=== PATIENT | female | born 1945 | race Caucasian/White ===

== ENCOUNTER 2021-10-07 11:52 | Emergency (ER) | payer MEDICARE, MEDICAID, SELFPAY ==
--- NOTE | ~2021-10-07 | XR_ITS ---
EXAMINATION: XR KNEE, RIGHT CLINICAL INFORMATION: Fall, pain COMPARISON: None TECHNIQUE: AP and lateral views of the right knee. FINDINGS: Comminuted, minimally displaced fracture of the patella with at least 2 fracture lines in the transverse plane with overlying soft tissue swelling. Small joint effusion. Lateral joint space narrowing. XR/XR knee RT 2V IMPRESSION: Transverse fractures of the patella with minimal displacement.
[2021-10-07 12:03] VITALS: BP 117/66; PULSE 61; RESP 18; O2SAT 96; BMI 18.8
--- NOTE | 2021-10-07 13:20 | ED_ITS ---
HPI - Fall General Chief Complaint: Fall Stated Complaint: Fall T-1 R knee pain Time Seen by Provider: 10/07/21 13:20 Source: patient and other Mode of arrival: ambulatory Limitations: no limitations History of Present Illness HPI Narrative: 76-year-old female presents to the ER for evaluation of right knee pain after she fell last night. She states she was ambulating around her house without her walker when she tripped on a step and fell onto her right knee. She reports she cannot get up. She was on the floor for 20 minutes and managed to crawl to her bedroom. Nursing staff came to her house last night around 04:00 o'clock to give her her evening meds and dinner and was able to help her up. She adamantly refused transfer to the hospital at that time. She woke up this morning with ongoing right knee pain and swelling. She had significant limited range of motion with ability to only partially bear weight. She lives home independently with nursing staff intermittently through [facility] and service net. complaint: fall Onset (ago): day(s) (1) Fall from: standing Fall witnessed: no Place fall occurred: home Loss of consciousness: none Prolonged down time: minute(s) (20) Symptoms prior to fall: none Context: tripped/slipped Location of injury - extremities: right: knee Severity: moderate Severity scale (1-10): 7 Quality: aching Associated symptoms (after fall): denies Related Data Previous Rx's Medication Instructions Recorded ibuprofen 600 mg tablet 600 mg PO Q8H PRN pain #14 tabs 10/07/21 oxycodone 5 mg tablet 2.5 mg PO BID PRN severe pain 10/07/21 (scale score 7-10) #6 tabs Allergies Allergy/AdvReac Type Severity Reaction Status Date / Time propoxyphene [From Darvon] Allergy Mild UNKNOWN Unverified 10/31/19 14:49 metformin [Metformin] AdvReac Mild DIARRHEA, Unverified 10/31/19 14:49 RASH Review of Systems Review of Systems: Constitutional: No Fever, No Chills ENT/Mouth: No sore throat, No Rhinorrhea Cardiovascular: No Chest Pain, No SOB, No Orthopnea, No Edema Respiratory: No Cough, No Sputum, No Wheezing, No dyspnea Gastrointestinal: No Nausea, No Vomiting, No Diarrhea, No abdominal Pain Genitourinary: No Dysuria, No Urinary Frequency, No Hematuria Musculoskeletal: + joint pain, No Myalgias Skin: +Skin Lesions, No rash Neuro: No Weakness, No Numbness, No Dizziness, No Headache Psych: No Anxiety/Panic, No Depression Heme/Lymph: No Bruising, No Lymphadenopathy [facility] Social History Social History Advance Directives: Yes Advance Directives Information Provided: No Advance Directives on File: No Physical Exam Vital Signs: Vital Signs: Last Vital Signs Pulse 61 10/07/21 12:03 Resp 18 10/07/21 12:03 BP 117/66 10/07/21 12:03 Pulse Ox 96 10/07/21 12:03 O2 Del Method 10/07/21 12:03 BMI result Body Mass Index 18.8 Appearance: Alert elderly female sitting on the stretcher. Oriented X3. No acute distress. Kyphotic HEENT: normal inspection. CVS: Normal heart rate and rhythm. Pulses normal. Respiratory: No respiratory distress. Skin: Skin warm and dry. Normal skin color. Normal skin turgor. No rashes. Extremities: Right knee with moderate generalized swelling, superficial abrasion over the patella. Unable to flex the knee at all. Held in full ext ension. Early ecchymoses forming at the distal knee/proximal tibial plateau area. Neurovascularly intact distally. Neuro: Oriented X 3. Unable to assess gait due to pain. Nonfocal. Course Course Course Narrative: 76 yo female presenting with right knee pain after a mechanical fall yesterday. On exam she has moderate swelling with significant limitation in range of motion. Unable to ambulate. X-ray is showing patellar fracture. The fracture is comminuted, minimally displaced of the patella with at least 2 fracture lines in the transverse plane with overlying soft tissue swelling. Small joint effusion noted. Lateral joint space narrowing. Results were discussed with orthopedics. Recommending nonweightbearing and knee immobilizer. Patient is here with her service net nurse. They have communicated with nursing staff and [facility] to coordinate 247 care for the patient at home. She would like to go home. She was given Tylenol for her pain with improvement. Will prescribe Motrin and low-dose oxycodone for home as she will have 24 hour care. Stable for discharge home with outpatient follow-up with Orthopedics. Reevaluation(s) Reevaluation #1: Orthopedic - Paloma Garcia PA-C Critical Care Time Critical Care Time Critical Care Time: No Discharge Plan Discharge Clinical Impression: Patellar fracture Patient Disposition: Home, Self-Care Instructions: Patellar Fracture (ED) Additional Instructions: Your x-ray today showed that you broke your knee cap also known as your patella. Wear the knee immobilizer at all times. DO NOT PUT ANY WEIGHT ON YOUR RIGHT LEG/FOOT. Follow up with Orthopedics within the next week. Take the prescribed medications as directed. If you develop new or worsening symptoms call 911 or come back to the ER for further evaluation. Prescriptions: New ibuprofen 600 mg tablet 600 mg PO Q8H PRN (Reason: pain) Qty: 14 0RF oxycodone 5 mg tablet 2.5 mg PO BID PRN (Reason: severe pain (scale score 7-10)) Qty: 6 0RF Rx Instructions: Partial Fill upon patient request. Referrals: Alba Garcia PA-C [[facility]] -
[2021-10-07] MEDS: Acetaminophen 325 MG TABLET 975 MG PO (14:02)
== END 2021-10-07 14:50 | disposition home or self-care (01) ==
PROVIDERS: Emergency Provider Emergency Medicine Emergency Medical Services; PCP Internal Medicine
DX: S82.031A Displaced transverse fracture of right patella, initial encounter for closed fracture (principal); W17.89XA Other fall from one level to another, initial encounter; Y93.89 Activity, other specified; Y92.018 Other place in single-family (private) house as the place of occurrence of the external cause; Y99.9 Unspecified external cause status
CPT/HCPCS: 73560; 99283

== ENCOUNTER 2021-10-13 07:21 | Outpatient (REF) | payer MEDICARE, MEDICAID, SELFPAY ==
--- NOTE | ~2021-10-13 | XR_ITS ---
EXAMINATION: XR KNEE, RIGHT CLINICAL INFORMATION: Pain in the knee COMPARISON: 10/07/2021 TECHNIQUE: Two views of the right knee. FINDINGS: Redemonstration of the patellar fracture is . Minimal displacement of the fragments. This is more pronounced than on prior, though this may be secondary to bone resorption during the healing process. No new fractures. No joint effusion. Compartmental joint spaces maintained. Vascular calcification. XR/XR knee RT 2V IMPRESSION: Patellar fracture with unchanged alignment. Fracture lines are more prevalent than on prior, possibly secondary to bone resorption during the process of healing.
== END 2021-10-13 07:22 | disposition home or self-care (01) ==
LOC: HO.HOSX 07:21
PROVIDERS: Visit Provider Physician Assistant
DX: S82.001A Unspecified fracture of right patella, initial encounter for closed fracture (principal)
CPT/HCPCS: 73560; 99202

== ENCOUNTER 2021-11-10 07:11 | Outpatient (REF) | payer MEDICARE, MEDICAID, SELFPAY ==
--- NOTE | ~2021-11-10 | XR_ITS ---
EXAMINATION: XR KNEE, RIGHT CLINICAL INFORMATION: Knee pain COMPARISON: 10/13/2021 TECHNIQUE: Four views of the right knee. FINDINGS: Redemonstration of the patellar fracture. There has been partial healing from prior, with the fracture lines less evident. There is appropriate alignment. Compartmental joint spaces are maintained. Chondrocalcinosis noted at the lateral compartment. No joint effusion. Vascular calcifications. XR/XR knee RT 2V IMPRESSION: Healing patellar fracture. Appropriate alignment.
== END 2021-11-10 07:12 | disposition home or self-care (01) ==
LOC: HO.HOSX 07:11
PROVIDERS: Visit Provider Physician Assistant
DX: M25.561 Pain in right knee (principal)
CPT/HCPCS: 73560

== ENCOUNTER 2021-11-30 09:00 | Outpatient (RCR) | payer MEDICARE, MEDICAID, SELFPAY ==
--- NOTE | 2021-11-17 11:50 | MHC.PT.EP ---
[facility] [place] Office [place] Office [place] Office [address] Migue Castillo [address] [phone] F: [phone] F: [phone] F: [phone] F: [phone] Physical Therapy Plan of Care Date of Evaluation: Date of Surgery: n/a Diagnosis: R patellar fx Assessment: Patient is a 76 year old female presenting to PT with complaints of pain in her R knee s/p R patellar fx. Pt reports onset of pain began 10/06/2021 due to a fall. She presents today with impairments in pain, ROM, and strength. Pt's current occupation is none, with baseline physical activities including ambulation, ADLs. Pt expresses retirement goal of getting back to PLOF, and is motivated to work towards this in PT. Clinical presentation today is most consistent with signs and sx associated with R knee pain s/p R patellar fx and pt will benefit from skilled PT to address the following problems and impairments noted upon evaluation: pain, ROM, and strength. These problems limit the patient with the following functional activities: ambulation, ADLs. The prescribed treatment plan of care is medically necessary. Co-morbidities of intellectual disability, HTN,osteoporosis, hx stroke, T2DM were identified and taken into considerations of plan of care. Pt was educated on HEP, role of PT, prognosis, POC. Frequency and Duration: The patient will be seen 1 x week x 6 weeks Short Term Goals: Pt will demonstrate improved knee ROM to 90 in 3 weeks. Pt will demonstrate R knee MMT strength at least 3/5 in 3 weeks. Pt will demonstrate ability to complete SLR without lag in 3 weeks. Fpc Goals: Pt will demonstrate improved LEFI score by 9 points in 6 weeks for improved functional mobility. Pt will report min to no pain with ambulation and good mechanics pending MD clearance for removal for improved access to her home in 6 weeks. Treatment Plan: Modalities to reduce pain, spasms and effusion. Manual therapy to restore motion and function. Therapeutic exercise to improve strength and flexibility. Neuromuscular re-education for posture and balance. Therapeutic activities to return to functional activities of daily living. Electronically signed by: Karen Greene, PT, DPT, ATC Please sign and return to therapist. Thank you for your referral.
--- NOTE | 2022-01-19 15:47 | MHC.PT.DC ---
[facility] [place] Office [place] Office [place] Office [address] [phone] F: [phone] F: [phone] F: [phone] F: [phone] Physical Therapy Discharge Report Diagnosis: R patellar fx Date of Surgery: n/a Date of Evaluation: 11/17/21 Date of Discharge: 01/19/22 Treatments to Date: 3 Cancellations to Date: 1 No Shows to Date: 2 Discharge Status: Visit Non-compliance Discharge Summary: Pt has not attended skilled PT in >30 days. Pt has also failed to comply with [facility] attendance policy and no showed multiple appointments. Electronically signed by: Karen Greene, PT, DPT, ATC Please sign and return to therapist. Thank you for your referral.
== END 2022-01-19 15:47 | disposition home or self-care (01) ==
LOC: HO.PTCHIC 09:00
PROVIDERS: Visit Provider Physician Assistant
DX: S82.001A Unspecified fracture of right patella, initial encounter for closed fracture (principal)
CPT/HCPCS: 97110; 97162

== ENCOUNTER 2021-12-22 12:03 | Outpatient (REF) | payer MEDICARE, MEDICAID, SELFPAY ==
--- NOTE | ~2021-12-22 | XR_ITS ---
EXAMINATION: XR KNEE, RIGHT CLINICAL INFORMATION: Knee pain. COMPARISON: 11/10/2021 TECHNIQUE: Four views of the right knee. FINDINGS: Again seen is a fracture through the patella. Fracture lines are a bit less sharp indicative of some element of healing. Complete bony fusion is not seen. Again noted is chondrocalcinosis involving the lateral meniscus. There is some minimal narrowing of the medial compartment. No significant joint effusion is seen. Vascular calcifications are present. XR/XR knee RT 2V IMPRESSION: 1. Healing patellar fracture. 2. Chondrocalcinosis lateral meniscus.
== END 2021-12-22 12:04 | disposition home or self-care (01) ==
LOC: HO.HOSX 12:03
PROVIDERS: Visit Provider Physician Assistant
DX: S82.001D Unspecified fracture of right patella, subsequent encounter for closed fracture with routine healing (principal)
CPT/HCPCS: 73560; 99212

== ENCOUNTER 2022-01-07 12:54 | Emergency (ER) | payer MEDICARE, MEDICAID, SELFPAY ==
--- NOTE | ~2022-01-07 | CT_ITS ---
EXAMINATION: CT HEAD WITHOUT CONTRAST CLINICAL INFORMATION: Left facial droop COMPARISON: CT brain 03/17/2011 TECHNIQUE: Contiguous axial imaging was performed from the skull base to vertex without intravenous administration of contrast. This CT examination was performed using dose optimization techniques as appropriate, variously including the following: *Automated exposure control *Adjustment of mA and/or kV according to patient size (this includes techniques or standardized protocols for targeted exams where dose is matched to indication/reason for exam; i.e. extremities or head) *Use of iterative reconstruction technique DLP: 602 mGy-cm FINDINGS: There is no acute intra-axial, extra-axial bleed, masses or midline shift. There is no acute infarction evolution. There is lacunar infarction right centrum semiovale frontal lobe. There is diffuse periarticular hypodensity seen in both cerebral hemispheres without mass effect. Bone windows reveal no calvarial abnormality. Bilateral paranasal sinuses and mastoid air cells are well-aerated. There is no scalp soft tissue abnormality. CT/CT head/brain wo IV con IMPRESSION: 1. No acute intracranial process seen. 2. Lacunar infarction right centrum semiovale frontal lobe. 3. Chronic small vessel ischemic changes in both cerebral hemispheres. 4. Diffuse periarticular hypodensity seen in both cerebral hemispheres without mass effect.
--- NOTE | 2022-01-07 13:28 | ECG_ITS ---
Test Reason : CHEST PAIN Blood Pressure : / mmHG Vent. Rate : 078 BPM Atrial Rate : 078 BPM P-R Int : 168 ms QRS Dur : 126 ms QT Int : 400 ms P-R-T Axes : 037 -06 -35 degrees QTc Int : 456 ms Normal sinus rhythm Right bundle branch block Left anterior fascicular block T wave abnormality, consider inferior ischemia Abnormal ECG When compared with ECG of 10-MAY-2016 15:22, No significant changes seen Referred By: Iván Nascimento Electronically Signed By:SHRUTHI ELIZONDO MD
--- NOTE | 2022-01-07 13:31 | ED_ITS ---
HPI - Weakness General Chief complaint: General Medical Stated complaint: left side facial numbness and pain Time Seen by Provider: 01/07/22 13:09 Source: patient and other ([facility] counselor) Mode of arrival: ambulatory Limitations: no limitations History of Present Illness HPI Narrative: 76-year-old female who is brought to emergency department by her service case management coordinator, Justine who can be reached at . The patient was at a [facility] today and the [facility] were concerned that the patient may have wandered away from a hospital facility, therefore they called the police. The police then contacted Justine the patient's [employer] case management coordinator who picked the patient up. According to her case management coordinator, the patient lost her housing about 2 months ago and has been living in a shared living house managed by [employer]. Apparently, the patient has been experiencing left-sided facial numbness and weakness for approximately 2 days. The patient's case management coordinator states that the patient was drooling and mumbling which was new for her. He was concerned that the patient was having a stroke so he brought her to the emergency department for evaluation. 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 She denied fever, chills, rhinorrhea, sore throat, cough. She states she occasionally gets chest pain and shortness of breath but has not been ex periencing symptoms over the past several days. She does complain of urinary frequency and dysuria. Patient states that she has also had a rash on her body for several weeks. The rash is itchy. She has been taking Benadryl with no relief of the itchiness or the rash. She states the rash is located under her breasts and on her legs. Related Data Home Medications Medication Instructions Recorded Confirmed alendronate 70 mg tablet 70 mg PO QWEEK 10/13/21 aspirin 81 mg tablet,delayed 81 mg PO DAILY 10/13/21 release (Adult Low Dose Aspirin) atenolol 50 mg tablet 50 mg PO DAILY 10/13/21 atorvastatin 20 mg tablet 20 mg PO DAILY 10/13/21 calcium carbonate 500 mg calcium 500 mg PO DAILY 10/13/21 (1,250 mg) tablet (Oyster Shell Calcium) levothyroxine 88 mcg tablet 88 mcg PO DAILY 10/13/21 lisinopril 20 mg tablet 20 mg PO DAILY 10/13/21 omega-3 fatty acids 1,000 mg 1,000 mg PO DAILY 10/13/21 capsule cholecalciferol (vitamin D3) 1,250 1,250 mcg PO QWEEK 12/22/21 mcg (50,000 unit) capsule Previous Rx's Medication Instructions Recorded oxycodone 5 mg tablet 2.5 mg PO BID PRN severe pain 10/07/21 (scale score 7-10) #6 tabs ibuprofen 600 mg tablet 600 mg PO Q8H PRN pain 30 days #90 11/10/21 tabs nitrofurantoin 100 mg PO Q12H 7 days #14 caps 01/07/22 monohydrate/macrocrystals 100 mg capsule (Macrobid) nystatin 100,000 unit/gram topical 1 appl topical BID 2 weeks #60 01/07/22 ointment grams prednisone 20 mg tablet 40 mg PO DAILY 7 days #14 tabs 01/07/22 Allergies Allergy/AdvReac Type Severity Reaction Status Date / Time propoxyphene [From Darvon] Allergy Mild UNKNOWN Verified 12/22/21 09:55 metformin [Metformin] AdvReac Mild DIARRHEA, Verified 12/22/21 09:55 RASH Review of Systems Review of Systems: Yes all other systems are reviewed and are negative [facility] Past Medical History [facility] Narrative: Social history: She is living in shared housing managed by [employer]. She denies tobacco, alcohol and drug use. Medical History GERD (gastroesophageal reflux disease) Hernia High blood pressure Hypothyroidism Intellectual disability Ischemic stroke Major depressive disorder Osteoporosis Type 2 diabetes mellitus Surgical History History of rectal surgery Social History Social History Alcohol intake: never Patient Tobacco Use Status: Former Tobacco user Smoked in Last 30 Days: No Use of substances other than those prescribed or required for medical reasons: No Advance Directives: No Current occupational status: retired Physical Exam Vital Signs: Vital Signs: Last Vital Signs Temp 98.1 F 01/07/22 15:18 Pulse 85 01/07/22 15:18 Resp 25 H 01/07/22 15:18 BP 143/83 H 01/07/22 15:18 Pulse Ox 94 01/07/22 15:18 O2 Del Method 01/07/22 15:18 BMI result Body Mass Index 20.0 Const: General: cooperative and no acute distress Orientation/consciousness: oriented to person and oriented to place Limitations: no limitations HEENT: Head: Yes normal to inspection, Yes normocephalic and Yes atraumatic Ears: external ears normal General nose exam: Normal external nose present Face and sinus: No face symmetric (Left facial droop, patient unable to wrinkle left forehead as much as right) Mouth: Normal oral and palatal mucosa present Throat: Yes posterior oropharynx normal Eyes: General: appearance normal, both eyes and all related structures Pupils: Equal, round and reactive pupils present Neck: Neck: Yes normal visual inspection, Yes no lymphadenopathy, Yes trachea midline and Yes supple Chest: Chest palpation & inspection: normal inspection of the chest and normal palpation of entire chest wall Resp: Effort & Inspection: normal respiratory effort and able to speak in complete sentences Auscultation: clear to auscultation bilaterally Cardio: Rate: regular rate Rhythm: regular rhythm Heart sounds: S1 normal heart sound present, S2 normal heart sound present and no murmurs GI: Inspection: Yes normal to inspection Palpation (GI): Soft to palpation, nontender and no guarding Auscultation: normal bowel sounds : General: Yes no CVA tenderness Back/Spine/Pelvis: Back: no CVA tenderness Skin: Other: Patient does have a rash beneath her right breast which appears to be consistent with a fungal infection . She also has a rash on her legs which are erythematous, in patches and mandy with pressure. Neuro: General: oriented to person and oriented to place Cranial nerves: Yes CN's II-XII intact bilaterally and Yes Equal, round and reactive pupils present Cognition (Neuro): normal cognition Motor exam (neuro): 5/5 motor strength present throughout Extrem: General: Yes normal to inspection Psych: Appearance: grossly normal Speech and movement: Normal speech and movement present Affect: normal affect Attitude: cooperative Thought process: Normal thought process present Thought content: Normal thought content present Course Course Course Narrative: 76-year-old female who is brought to the emergency department for evaluation of left facial droop, drooling and slurred speech. Patient believes that her symptoms have been there for at least 2-3 days, she noticed numbness of the face and then weakness and drooling. She denied any craole auricular pain. 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 She also has a rash under her breasts which I believe is a fungal infection, she has a rash in her legs which may be an Id response. I did order laboratory evaluation, urinalysis CT scan of the brain. 1526: Laboratory evaluation: Anemia with an H&H of 11.6 and 35.6. COVID-19 and influenza negative. Urinalysis 3+ leukocyte esterase. Microscopic 50 WBCs, 1+ bacteria, positive squamous cells. Radiology evaluation: CT scan of the brain without IV contrast radiology interpretation: IMPRESSION: 1. No acute intracranial process seen. 2. Lacunar infarction right centrum semiovale frontal lobe. 3. Chronic small vessel ischemic changes in both cerebral hemispheres. 4. Diffuse periarticular hypodensity seen in both cerebral hemispheres without mass effect. Dictated By:Amauri Burton MDSigned By:<Electronically signed by Amauri Burton MD Patient's presentation physical findings and laboratory evaluation is more consistent with Eddy palsy then stroke. Patient's urinalysis may not be a clean-catch specimen however she does have dysuria and frequency therefore I will treat her with Macrobid 1 pill twice a day for 10 days. I will treat her Eddy palsy with prednisone 40 mg once a day for 7 days. The patient's rash underneath her breasts is consistent with an intertriginous fungal infection and I will treat this with nystatin ointment the twice a day for 14 days. I believe that treating this rash will also improve the rash on the rest of her body (id response). The patient will be discharged to home. MDM - Weakness Lab Data Result diagrams: 01/07/22 14:18 01/07/22 14:18 Labs: Lab Results 01/07/22 01/07/22 01/07/22 Range/Units 14:18 14:18 14:18 WBC 9.6 (4.8-10.8) X10*3/uL RBC 4.04 L (4.20-5.50) X10*6/uL Hgb 11.6 L (12.0-16.0) g/dl Hct 35.6 L (37.0-47.0) % MCV 88.1 (80.0-98.0) fL MCH 28.7 (27.0-33.0) pg MCHC 32.6 (31.0-35.0) g/dl RDW 14.6 (11.0-16.0) % Plt Count 323 (160-400) X10*3/uL MPV 9.9 (9.4-12.3) fL Immature Gran % (Auto) 0.2 (0.0-0.4) % Neut % (Auto) 74.5 H (45-73) % Lymph % (Auto) 15.3 L (20-40) % Oceana % (Auto) 5.9 (2-11) % Eos % (Auto) 3.9 (0-4) % Baso % (Auto) 0.2 (0-2) % Lymph # (Auto) 1.5 (1.2-4.9) X10*3/uL [place]ana # (Auto) 0.6 (0.1-1.2) X10*3/uL Eos # (Auto) 0.4 (0.0-0.4) X10*3/uL Baso # (Auto) 0.0 (0.0-0.2) X10*3/uL Abs Immat Gran (auto) 0.02 (0.00-0.03) X10*3/uL Absolute Neuts (auto) 7.1 (2.0-8.3) x10*3/uL Absolute Nucleated RBC 0.000 (0.0-0.012) X10*3/uL Nucleated RBC % (auto) 0.0 (0.0-0.2) /100WBC PT 11.3 (10.0-13.1) SEC INR 1.0 (0.9-1.1) APTT 27.3 (26.0-36.4) SEC Sodium 142 (135-145) mmol/L Potassium 3.7 (3.3-5.1) mmol/L Chloride 108 (96-108) mmol/L Carbon Dioxide 23 (22-29) mmol/L Anion Gap 15 (12-20) BUN 11 (9-16) mg/dL Creatinine 0.58 (0.5-1.4) mg/dL Estim Creat Clear Calc 65.7 Estimated GFR > 60 Random Glucose 101 (60-115) mg/dL Calcium 9.2 (8.4-10.2) mg/dL Total Bilirubin 0.5 (0.0-1.0) mg/dL AST 15 (5-31) U/L ALT 11 (0-31) U/L Alkaline Phosphatase 76 (39-117) U/L Total Protein 6.2 L (6.5-8.0) g/dL Albumin 4.1 (3.5-5.0) g/dL Urine Color Urine Appearance Urine pH (5.0-9.0) Ur Specific Antler (1.005-1.025) Urine Protein (Neg-Trace) mg/dL Urine Glucose (UA) (Negative) mg/dL Urine Ketones (Negative) mg/dL Urine Blood (Negative) Urine Nitrite (Negative) Ur Leukocyte Esterase (Negative) Urine RBC (0-2) /HPF Urine WBC (0-5) /HPF Ur Squamous Epith Cells (0-2) /HPF Urine Bacteria (None Seen) Hyaline Casts (0-2) /LPF COVID-19 (MIKKI) (Negative) COVID-19 Clin Com Influenza Type A (JENNI) (Negative) Influenza Type B (JENNI) (Negative) Influenza A & B Note 01/07/22 01/07/22 01/07/22 Range/Units 14:18 14:18 14:21 WBC (4.8-10.8) X10*3/uL RBC (4.20-5.50) X10*6/uL Hgb (12.0-16.0) g/dl Hct (37.0-47.0) % MCV (80.0-98.0) fL MCH (27.0-33.0) pg MCHC (31.0-35.0) g/dl RDW (11.0-16.0) % Plt Count (160-400) X10*3/uL MPV (9.4-12.3) fL Immature Gran % (Auto) (0.0-0.4) % Neut % (Auto) (45-73) % Lymph % (Auto) (20-40) % Oceana % (Auto) (2-11) % Eos % (Auto) (0-4) % Baso % (Auto) (0-2) % Lymph # (Auto) (1.2-4.9) X10*3/uL O[place]ana # (Auto) (0.1-1.2) X10*3/uL Eos # (Auto) (0.0-0.4) X10*3/uL Baso # (Auto) (0.0-0.2) X10*3/uL Abs Immat Gran (auto) (0.00-0.03) X10*3/uL Absolute Neuts (auto) (2.0-8.3) x10*3/uL Absolute Nucleated RBC (0.0-0.012) X10*3/uL Nucleated RBC % (auto) (0.0-0.2) /100WBC PT (10.0-13.1) SEC INR (0.9-1.1) APTT (26.0-36.4) SEC Sodium (135-145) mmol/L Potassium (3.3-5.1) mmol/L Chloride (96-108) mmol/L Carbon Dioxide (22-29) mmol/L Anion Gap (12-20) BUN (9-16) mg/dL Creatinine (0.5-1.4) mg/dL Estim Creat Clear Calc Estimated GFR Random Glucose (60-115) mg/dL Calcium (8.4-10.2) mg/dL Total Bilirubin (0.0-1.0) mg/dL AST (5-31) U/L ALT (0-31) U/L Alkaline Phosphatase (39-117) U/L Total Protein (6.5-8.0) g/dL Albumin (3.5-5.0) g/dL Urine Color Yellow Urine Appearance Clear Urine pH 6.5 (5.0-9.0) Ur Specific Antler 1.010 (1.005-1.025) Urine Protein Negative (Neg-Trace) mg/dL Urine Glucose (UA) Negative (Negative) mg/dL Urine Ketones Negative (Negative) mg/dL Urine Blood Negative (Negative) Urine Nitrite Negative (Negative) Ur Leukocyte Esterase Large (3+) H (Negative) Urine RBC 0-2 (0-2) /HPF Urine WBC 21-50 H (0-5) /HPF Ur Squamous Epith Cells 6-10 (0-2) /HPF Urine Bacteria 1+ (None Seen) Hyaline Casts 0-2 (0-2) /LPF COVID-19 (MIKKI) Negative (Negative) COVID-19 Clin Com See Note Influenza Type A (JENNI) Negative (Negative) Influenza Type B (JENNI) Negative (Negative) Influenza A & B Note See Note Discharge Plan Discharge Clinical Impression: Eddy palsy Urinary tract infection Qualifiers: Encounter type: initial encounter Patient Disposition: Home, Self-Care Instructions: Eddy Palsy (ED), Acute Urinary Retention in Women (ED) Additional Instructions: The weakness on the left side of your face (facial droop) is caused by swelling of the facial nerve and is consistent with Eddy palsy. Take prednisone 20 mg pills, 2 pills once a day for 7 days to help reduce the inflammation in the facial nerve and help improve the Eddy's palsy. Your urine and your symptoms are concerning for urinary tract infection. Take Macrobid 100 mg capsules, 1 pill twice a day for 7 days. A rash under your breasts are caused by a fungal infection. Apply nystatin ointment twice a day for 2 weeks. Treating the rash under your breasts will also improve the rash on your legs in the rest of your body, you do not need to apply the nystatin to the other areas of the rash. Sometimes Eddy's palsy can be caused by a the tick-borne illness Lyme disease. I did test you for Lyme disease but these results will not be back for another week. You will need to check the Lyme test with your doctor. Follow-up with your doctor in 2 days. Please return to the emergency department if your symptoms get worse or if you develop any symptoms that are concerning to you. Prescriptions: New nystatin 100,000 unit/gram ointment 1 appl topical BID 14 Days Qty: 60 0RF Rx Instructions: Apply to rash under breasts twice a day for 2 weeks prednisone 20 mg tablet 40 mg PO DAILY 7 Days Qty: 14 0RF nitrofurantoin monohyd/m-cryst [Macrobid] 100 mg capsule 100 mg PO Q12H 7 Days Qty: 14 0RF Rx Instructions: must administer with a meal/food No Action oxycodone 5 mg tablet 2.5 mg PO BID PRN (Reason: severe pain (scale score 7-10)) Qty: 6 0RF Rx Instructions: Partial Fill upon patient request. atorvastatin 20 mg tablet 20 mg PO DAILY lisinopril 20 mg tablet 20 mg PO DAILY levothyroxine 88 mcg tablet 88 mcg PO DAILY omega-3 fatty acids 1,000 mg capsule 1,000 mg PO DAILY alendronate 70 mg tablet 70 mg PO QWEEK atenolol 50 mg tablet 50 mg PO DAILY aspirin [Adult Low Dose Aspirin] 81 mg tablet,delayed release (DR/EC) 81 mg PO DAILY calcium carbonate [Oyster Shell Calcium] 500 mg calcium (1,250 mg) tablet 500 mg PO DAILY ibuprofen 600 mg tablet 600 mg PO Q8H PRN (Reason: pain) 30 Days Qty: 90 2RF cholecalciferol (vitamin D3) 1,250 mcg (50,000 unit) capsule 1,250 mcg PO QWEEK
--- NOTE | 2022-01-07 13:31 | PC.NURSE ---
when pt is being d/c home [facility]. pt does not drive.
[2022-01-07 13:32] VITALS: BP 161/84; PULSE 85; RESP 16; TEMP 36.6; O2SAT 95
--- NOTE | 2022-01-07 13:47 | PC.NURSE ---
pt is a/o x 3 no sob/jonathan noted lungs johnie upper lobes - cta, johnie lower lobes diminished. l side facial droop. heart sounds regular. abd - soft and non-tender, bs + x 4 quads. rash to johnie under breasts rash, r lateral leg rash. rash to under nose and johnie under eye pete. c/o 07/23 r hip/leg pain
--- OUTSIDE RECORDS SUMMARY | 2022-01-07 14:01 | XMS_ITS | Continuity of Care Document ---
:1945 Author Organization [facility]ILD WELFARE CONSULTANT Oncology Address [address] [place] [id number]- Care Team Providers Name Role Phone Sangeetha Sage MD Primary Care Physician Encounter [facility] ACCT R [id number] Date(s): 05/15/19 - 05/25/19 [facility] CHILD WELFARE CONSULTANT Oncology [address] [place] [id number]- [facility] Attending Physician: Arleen Werner Admitting Physician: AdmtrArleen Referring Physician: Admtr, Ar8 Allergies, Adverse Reactions, Alerts Substance Reaction Severity Status metformin rash Active Darvon swelling Active Medications Amlodipine = 10 mg, By Mouth, Daily at bedtime, 0 Refills, Maintenance, 07/07/17 9:26:03 EDT Start Date: 07/07/17 Status: OrderedArtificial Tears 1.4% Eyes, Both, 3 times a day, 0 Refills, Maintenance, 07/07/17 9:29:39 EDT Start Date: 07/07/17 Status: OrderedAspirin 81, mg, By Mouth, Daily, 0, 0, 09/30/07 16:30:11, Print SVETLANA Number, [id number], Constant Indicator Start Date: 09/30/07 Status: OrderedAtenolol Tablet 50 mg, By Mouth, 2 times a day, Refills 0, Tot. Refills 0, 09/30/07 16:30:25 EDT Start Date: 09/30/07 Status: Orderedatorvastatin 20 mg oral tablet 1 tablet = 20 mg, By Mouth, Daily, 0 Refills, Maintenance Start Date: 07/07/17 Status: OrderedBreo Ellipta 100 mcg-25 mcg/inh inhalation powder 1 puffs, Inhalation, Daily, 0 Refills, Maintenance, 07/07/17 9:31:19 EDT Start Date: 07/07/17 Status: OrderedCranberry 500mgs, Daily, 0 Refills, Maintenance, 07/07/17 9:31:59 EDT Start Date: 07/07/17 Status: OrderedFish Oil 2000mgs, By Mouth, Daily at bedtime, 0 Refills, Maintenance, 07/07/17 9:26:58 EDT Start Date: 07/07/17 Status: OrderedFosamax 70 mg oral tablet 1 tablet = 70 mg, By Mouth, Every 28 days, 0 Refills, Maintenance, 07/07/17 9:29:02 EDT Start Date: 07/07/17 Status: OrderedIncruse Ellipta 62.5 mcg/inh inhalation powder Inhalation, Every 24 hours, 0 Refills, Maintenance, 07/07/17 9:30:32 EDT Start Date: 07/07/17 Status: Orderedlevothyroxine 0.088 mg oral tablet 1 tablet = 88 mcg, By Mouth, Daily, 0 Refills, Maintenance, 07/07/17 9:32:56 EDT Start Date: 07/07/17 Status: OrderedMultivitamin Tablet 1, tablet, By Mouth, Daily, 0, 0, 09/30/07 16:33:29, Print SVETLANA Number, [id number], Constant Indicator Start Date: 09/30/07 Status: OrderedOysco 500 By Mouth, Daily in AM, 0 Refills, Maintenance, 07/07/17 9:35:26 EDT Start Date: 07/07/17 Status: OrderedPaxil Tablet 40 mg, By Mouth, Daily at bedtime, Refills 0, Tot. Refills 0, 09/30/07 16:33:50 EDT Start Date: 09/30/07 Status: OrderedPrilosec OTC = 20 mg, By Mouth, 2 times a day, 0 Refills, 09/30/07 16:31:42 EDT Start Date: 09/30/07 Status: OrderedTylenol Tablet 650, mg, By Mouth, Every 4 hours, 0, 0, 09/30/07 16:32:46, Print SVETLANA Number, [id number], Constant Indicator Start Date: 09/30/07 Status: OrderedVitamin C = 1,000 mg, By Mouth, Daily, 0 Refills, Maintenance, 07/07/17 9:34:21 EDT Start Date: 07/07/17 Status: OrderedVitamin E Capsule 400, International_Units, By Mouth, Daily, 0, 0, 09/30/07 16:32:12, Print SVETLANA Number, [id number], Constant Indicator Start Date: 09/30/07 Status: Ordered Problem List Condition Effective Dates Status Health Status Informant Eddy palsy(Confirmed) Active Constipation(Confirmed) Active Depression(Confirmed) Active Diabetes mellitus type 2(Confirmed) Active Gastritis(Confirmed) Active GERD - Gastro-esophageal reflux Active disease(Confirmed) Hypercholesterolemia(Confirmed) Active Hypertension(Confirmed) Active Hypothyroid(Confirmed) Active Irritable bowel(Confirmed) Active Osteoporosis(Confirmed) Active Ovarian mass(Confirmed) Active Stroke(Confirmed) Active Social History Social History Type Response Smoking Status Former smoker, quit more jem n 30 days ago entered on: 10/31/18 Sex
--- OUTSIDE RECORDS SUMMARY | 2022-01-07 14:01 | XMS_ITS | Continuity of Care Document ---
:1945 Author Organization [facility] Address [address] [place] [id number]- Care Team Providers Name Role Phone Sangeetha Sage MD Primary Care Physician Encounter [facility] Date(s): 02/15/19 - 06/12/[address] [address]- [facility] Attending Physician: Jyoti Mojica MD Admitting Physician: Jyoti Mojica MD Referring Physician: Jyoti Mojica MD Allergies, Adverse Reactions, Alerts Substance Reaction Severity [...] 0, 0, 09/30/07 16:30:11, Print SVETLANA Number, [id number], Constant Indicator Start Date: 09/30/07 Status: OrderedAtenolol [...] 0, 0, 09/30/07 16:33:29, Print SVETLANA Number, [id number], Constant Indicator Start Date: 09/30/07 Status: OrderedOysco [...] 0, 0, 09/30/07 16:32:12, Print SVETLANA Number, [id number], Constant Indicator Start Date: 09/30/07 Status: Ordered [...]
--- OUTSIDE RECORDS SUMMARY | 2022-01-07 14:01 | XMS_ITS | Continuity of Care Document ---
:1945 Author Organization [facility] SERVICES COORD[facility] Oncology Address [address] [place] [id number]- Care Team Providers Name Role Phone Sangeetha Sage MD Primary Care Physician [place] [facility] [place]s): 02/14/19 - 06/14/19 [facility] SERVICES COORDINATOR Oncology [address] [place] [address]- [facility] Attending Physician: Jyoti Mojica MD Admitting Physician: Jyoti Mojica MD Referring Physician: Sangeetha Sage MD Allergies, Adverse Reactions, Alerts Substance Reaction [...] 0, 0, 09/30/07 16:30:11, Print SVETLANA Number, [id number], Constant Indicator Start Date: 09/30/07 Status: OrderedAtenolol [...] 0, 0, 09/30/07 16:33:29, Print SVETLANA Number, [id number], Constant Indicator Start Date: 09/30/07 Status: OrderedOysco [...] 0, 0, 09/30/07 16:32:12, Print SVETLANA Number, [id number], Constant Indicator Start Date: 09/30/07 Status: Ordered [...]
[2022-01-07 14:26] LABS: MANUAL DIFF FLAG NO
[2022-01-07 14:29] LABS: Basophils Percent Auto 0.2 % (0-2); Eosinophils Absolute Auto 0.4 X10*3/uL (0.0-0.4); Eosinophils Percent Auto 3.9 % (0-4); Hematocrit 35.6 % (37.0-47.0); Hemoglobin 11.6 g/dl (12.0-16.0); Imm Gran Abs Auto 0.02 X10*3/uL (0.00-0.03); Imm Gran Pct Auto 0.2 % (0.0-0.4); Lymphocytes Absolute Auto 1.5 X10*3/uL (1.2-4.9); Lymphocytes Percent Auto 15.3 % (20-40); Mean Corpuscular HGB Conc 32.6 g/dl (31.0-35.0); Mean Corpuscular Hemoglobin 28.7 pg (27.0-33.0); Mean Corpuscular Volume 88.1 fL (80.0-98.0); Mean Platelet Volume 9.9 fL (9.4-12.3); Monocytes Absolute Auto 0.6 X10*3/uL (0.1-1.2); Monocytes Percent Auto 5.9 % (2-11); Neutrophils Absolute Auto 7.1 x10*3/uL (2.0-8.3); Neutrophils Percent Auto 74.5 % (45-73); Platelet Count 323 X10*3/uL (160-400); Red Blood Count 4.04 X10*6/uL (4.20-5.50); Red Cell Distribution Width 14.6 % (11.0-16.0); White Blood Count 9.6 X10*3/uL (4.8-10.8)
[2022-01-07 14:30] LABS: Appearance Urine Clear; Color Urine Yellow; Glucose Urine UA Negative (Negative); Leukocyte Esterase Urine Large (3+) (Negative); Nitrite Urine Negative (Negative); PH 6.5 (5.0-9.0); UMIC TRIGGER UACC YES; Urine Blood Negative (Negative); Urine Ketones Negative (Negative); Urine Protein Negative (Neg-Trace)
[2022-01-07 14:32] LABS: Bacteria Urine 1+ (None Seen); Hyaline Casts Urine 0-2 /LPF (0-2); RBC Urine 0-2 /HPF (0-2); UACC Culture Trigger YES; WBC Urine 21-50 /HPF (0-5)
[2022-01-07 14:33] LABS: Prothrombin Time 11.3 SEC (10.0-13.1)
[2022-01-07 14:36] LABS: Partial Thromboplastin Time 27.3 SEC (26.0-36.4)
[2022-01-07 14:43] LABS: Alanine Aminotransferase 11 U/L (0-31); Albumin Level 4.1 g/dL (3.5-5.0); Alkaline Phosphatase 76 U/L (39-117); Anion Gap 15 (12-20); Aspartate Amino Transferase 15 U/L (5-31); Bilirubin Total 0.5 mg/dL (0.0-1.0); Blood Urea Nitrogen 11 mg/dL (9-16); Calcium 9.2 mg/dL (8.4-10.2); Carbon Dioxide 23 mmol/L (22-29); Chloride 108 mmol/L (96-108); Creatinine Clr Calc Pharmacy 65.7; Estimated Glomerular Filt Rate > 60; Glucose Random 101 mg/dL (60-115); Potassium 3.7 mmol/L (3.3-5.1); Sodium 142 mmol/L (135-145); Total Protein 6.2 g/dL (6.5-8.0)
[2022-01-07 14:44] VITALS: BP 119/78; PULSE 79; RESP 25; TEMP 36.7; O2SAT 95
[2022-01-07 14:45] LABS: COVID-19 Test Negative (Negative); IDNOW Serial# 9DB6401D; IDNOW Serial# BCCEAD1C; Influenza A Negative (Negative); Influenza B2 Negative (Negative)
[2022-01-07 15:18] VITALS: BP 143/83; PULSE 85; RESP 25; TEMP 36.7; O2SAT 94
[2022-01-07] MEDS: Nitrofurantoin Monohyd/M-Cryst 100 MG CAPSULE PO (15:52)
[2022-01-07] MEDS: predniSONE 20 MG TABLET 40 MG PO (15:52)
[2022-01-08 22:07] LABS: A. Phagocytphilium DNA,RT-PCR NOT DETECTED (NOT DETECTED); Babesia Microti DNA, RT-PCR NOT DETECTED (NOT DETECTED); Borrelia Miyamotoi,DNA RT-PCR NOT DETECTED (NOT DETECTED); E.Chaffeensis DNA RT-PCR NOT DETECTED (NOT DETECTED); Lyme(Borrelia ssp)DNA RT-PCR NOT DETECTED (NOT DETECTED)
[2022-01-11 09:11] LABS: Source-Tick borne disease BLOOD
== END 2022-01-07 16:12 | disposition home or self-care (01) ==
PROVIDERS: Emergency Provider Emergency Medicine Emergency Medical Services; PCP Internal Medicine
DX: G51.0 Bell's palsy (principal); N39.0 Urinary tract infection, site not specified; B36.9 Superficial mycosis, unspecified; Z20.822 Contact with and (suspected) exposure to COVID-19; I10 Essential (primary) hypertension; E11.9 Type 2 diabetes mellitus without complications; Z87.891 Personal history of nicotine dependence; Z79.899 Other long term (current) drug therapy; Z79.82 Long term (current) use of aspirin
CPT/HCPCS: 70450; 80053; 81001; 85025; 85610; 85730; 87086; 87502; 87635; 87798; 87801; 93005; 99284

== ENCOUNTER 2022-01-24 13:40 | Inpatient (IN) | payer MEDICARE, MEDICAID, SELFPAY ==
[2022-01-24] VITALS (9 sets, daily range): BP systolic 110–137; BP diastolic 53–78; PULSE 80–108; RESP 15–23; TEMP 36.3–37.7; O2SAT 94–96; BMI 17.9
--- NOTE | ~2022-01-24 | XR_ITS ---
EXAMINATION: XR CHEST CLINICAL INFORMATION: Weakness COMPARISON: 09/14/2011 TECHNIQUE: 2 views of the chest were obtained. FINDINGS: Ill-defined opacity in the right mid to lower lung zone and also in the left lower lung zone. This may represent subtle areas of atelectasis infiltrate or small airways disease. There is no failure.. There is no effusion. Kyphosis in the spine. No convincing evidence for acute compression injury. Tortuous versus ectatic arch and descending aorta. Probable small hiatal hernia. XR/XR chest 2V IMPRESSION: Mild right mid to lower lung and left lower lobe opacities consistent with small areas of subtle infiltrate. Follow-up films recommended
--- NOTE | 2022-01-24 13:42 | ECG_ITS ---
Test Reason : lethargy Blood Pressure : / mmHG Vent. Rate : 105 BPM Atrial Rate : 105 BPM P-R Int : 146 ms QRS Dur : 106 ms QT Int : 380 ms P-R-T Axes : -12 -10 -31 degrees QTc Int : 502 ms Sinus tachycardia Incomplete right bundle branch block ST & T wave abnormality, consider anterolateral ischemia Abnormal ECG When compared with ECG of 07-JAN-2022 14:38, No significant changes seen Referred By: Rahel Gupta Electronically Signed By:BURT DEWITT
--- NOTE | 2022-01-24 13:42 | ED.SOB ---
HPI - SOB/Dyspnea General Chief Complaint: General Medical <Rahel Gupta NP - Last Filed: 01/24/22 13:44> Stated Complaint: lethargic, coughing, multiple comp <Rahel Gupta NP - Last Filed: 01/24/22 13:44> Time Seen by Provider: 01/24/22 16:10 <Rahel Gupta NP - Last Filed: 01/24/22 13:44> Source: patient and family (pediatric care coordinator) <Alejandro Walker MD - Last Filed: 01/24/22 16:39> Mode of arrival: ambulatory <Alejandro Walker MD - Last Filed: 01/24/22 16:39> Limitations: no limitations <Alejandro Walker MD - Last Filed: 01/24/22 16:39> History of Present Illness HPI Narrative: 76-year-old female walked to the emergency department for a complaint of decreased p.o. intake, coughing, chills, generalized weakness, greenish sputum production was coughing. Symptoms started 3 days ago. Patient lives temporarily in [facility], get 10 hours a week service from [employer] for help, declined any recent exposure to a sick contact, no recent travel. <Alejandro Walker MD - Last Filed: 01/24/22 16:39> Related Data Home Medications: Home Medications Medication Instructions Recorded Confirmed alendronate 70 mg tablet 70 mg PO QWEEK 10/13/21 aspirin 81 mg tablet,delayed 81 mg PO DAILY 10/13/21 release (Adult Low Dose Aspirin) atenolol 50 mg tablet 50 mg PO DAILY 10/13/21 atorvastatin 20 mg tablet 20 mg PO DAILY 10/13/21 calcium carbonate 500 mg calcium 500 mg PO DAILY 10/13/21 (1,250 mg) tablet (Oyster Shell Calcium) levothyroxine 88 mcg tablet 88 mcg PO DAILY 10/13/21 lisinopril 20 mg tablet 20 mg PO DAILY 10/13/21 omega-3 fatty acids 1,000 mg 1,000 mg PO DAILY 10/13/21 capsule cholecalciferol (vitamin D3) 1,250 1,250 mcg PO QWEEK 12/22/21 mcg (50,000 unit) capsule Previous Rx's Medication Instructions Recorded oxycodone 5 mg tablet 2.5 mg PO BID PRN severe pain 10/07/21 (scale score 7-10) #6 tabs ibuprofen 600 mg tablet 600 mg PO Q8H PRN pain 30 days #90 11/10/21 tabs nitrofurantoin 100 mg PO Q12H 7 days #14 caps 01/07/22 monohydrate/macrocrystals 100 mg capsule (Macrobid) nystatin 100,000 unit/gram topical 1 appl topical BID 2 weeks #60 01/07/22 ointment grams prednisone 20 mg tablet 40 mg PO DAILY 7 days #14 tabs 01/07/22 <Rahel Gupta NP - Last Filed: 01/24/22 13:44> Allergies/Adverse Reactions: Allergies Allergy/AdvReac Type Severity Reaction Status Date / Time propoxyphene [From Darvon] Allergy Mild UNKNOWN Verified 01/24/22 13:41 metformin [Metformin] AdvReac Mild DIARRHEA, Verified 01/24/22 13:41 RASH <Rahel Gupta NP - Last Filed: 01/24/22 13:44> Review of Systems Review of Systems: All other systems are reviewed and are negative Constitutional: Reports as per HPI and Reports no additional constitutional complaints Eyes: Reports as per HPI and Reports no additional eye complaints Reports system reviewed and no additional complaints, except as documented Cardiovascular: Reports as per HPI and Reports no additional cardiovascular complaints Respiratory: Reports as per HPI and Reports no additional respiratory complaints Gastrointestinal: Reports as per HPI and Reports no additional gastrointestinal complaints Genitourinary: Reports no additional female genitourinary complaints Musculoskeletal: Reports no additional musculoskeletal complaints Skin/Breast: Reports system reviewed and no additional complaints, except as docu Psychiatric: Reports no additional psychiatric complaints Endocrine: Reports no additional endocrine complaints Hematologic/Lymphatic: Reports no additional hematologic/lymphatic complaints Allergic/Immunologic: Reports no additional allergic/immunologic complaints Reports system reviewed and no additional complaints, except as documented and Reports Abnormal speech present <Alejandro Walker MD - Last Filed: 01/24/22 16:39> [facility] Past Medical History Medical History: Medical History GERD (gastroesophageal reflux disease) Hernia High blood pressure Hypothyroidism Intellectual disability Ischemic stroke Major depressive disorder Osteoporosis Type 2 diabetes mellitus <Rahel Gupta NP - Last Filed: 01/24/22 13:44> Surgical History: Surgical History History of rectal surgery <Rahel Gupta NP - Last Filed: 01/24/22 13:44> Social History Social History: Social History Alcohol intake: never Patient Tobacco Use Status: Former Tobacco user Advance Directives: No Advance Directives Information Provided: No Current occupational status: retired <Rahel Gupta NP - Last Filed: 01/24/22 13:44> Physical Exam Vital Signs: Vital Signs: Last Vital Signs Temp 98.3 F 01/24/22 13:41 Pulse 108 H 01/24/22 13:41 Resp 20 01/24/22 13:41 BP 112/78 01/24/22 13:41 Pulse Ox 94 01/24/22 13:41 O2 Del Method 01/24/22 13:41 BMI result Body Mass Index 17.9 <Rahel Gupta NP - Last Filed: 01/24/22 13:44> Vital Signs: Last Vital Signs Temp 98.3 F 01/24/22 13:41 Pulse 108 H 01/24/22 13:41 Resp 20 01/24/22 13:41 BP 112/78 01/24/22 13:41 Pulse Ox 94 01/24/22 13:41 O2 Del Method 01/24/22 13:41 BMI result Body Mass Index 17.9 vital signs have been reviewed as appeared to be correct. Blood pressure normal. Heart rate normal. Respiration rate normal. Temperature normal. Oxygen saturation normal. <Alejandro Walker MD - Last Filed: 01/24/22 16:39> Appearance: Alert. Oriented X3. No acute distress. Head: Normal external exam. Normocephalic. Atraumatic. No Mercado signs noted. No raccoon eyes noted Eyes: PERRLA. EOMI. Conjunctiva and sclera normal. Eyelids normal. ENT: TM's Normal. Pharynx normal. Uvula midline. Moist mucous membranes. No trismus noted. No drooling noted. No muffled voice noted. Neck: Normal inspection. Neck supple. FROM. No adenopathy. Thyroid Normal. No meningeal signs. No neck mass noted. CVS: Normal heart rate and rhythm. Heart sound normal. No murmurs noted. Pulses normal throughout. Respiratory: No respiratory distress. Painless inspiration. Breath sounds normal. Diffuse bilateral decreases breathing sounds with mild diffuse expiratory wheezing and prolonged expiration, crackles at the right lung base. No accessory muscle usage noted or decreased air movement noted. Abdomen: Soft and nontender. Bowel sounds normal in all 4 quadrants. No distention noted. No organomegaly noted. No visible injury noted. Back: No CVA tenderness. Full range of motion noted. Skin: Skin warm and dry. Normal skin color. Normal skin turgor. No rashes/lesions/lacerations noted. Extremities: No lower extremity edema. Extremities exhibit normal range of motion. Extremities nontender. Neuro: Oriented X 3. Cranial nerve exam: II-XII are grossly intact No motor deficit. No sensory deficit. Reflexes normal. <Alejandro Walker MD - Last Filed: 01/24/22 16:39> Course Course Course Narrative: This is a rapid medical exam. Deferred additional HPI, PE and review of systems the primary provider. This is a 76-year-old female with a history of GERD, hypertension, CVA, depression, diabetes, recent diagnosis of Eddy's palsy here with complaints of 3 days of generalized weakness, shortness of breath, cough, poor p.o. intake and feeling very lethargic and sleepy all the time. Patient was seen here on January 07 and diagnosed with Eddy's palsy and completed a course of prednisone. She also was diagnosed with the UTI which she completed antibiotic for. 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 She is residing in a [facility] as a look for permanent housing for her. Vital signs stable. Will check labs, EKG, chest x-ray, COVID screen, UA. <Rahel Gupta NP - Last Filed: 01/24/22 13:44> Reevaluation(s) Reevaluation #1: 76-year-old female who live at a motel presented with failure to thrive with decreased p.o. intake and coughing patient has a multi lobar pneumonia and positive for COVID patient also meet criteria for SIRS will start the patient on Zosyn and Zithromax. patient will receive IV fluid no evidence of severe sepsis or septic shock at the moment. <Alejandro Walker MD - Last Filed: 01/24/22 16:39> Time: 17:00 <Alejandro Walker MD - Last Filed: 01/24/22 16:39> Medical Decision Making Differential Diagnosis Differential Diagnoses: The differential diagnosis associated with the presentation includes <Alejandro Walker MD - Last Filed: 01/24/22 16:39> COVID 19 infection, influenza, RSV, pneumonia, severe sepsis, septic shock. <Alejandro Walker MD - Last Filed: 01/24/22 16:39> Admission/Observation Consideration of admission/observation: Escalation of care including admission/observation considered <Alejandro Walker MD - Last Filed: 01/24/22 16:39> Consult Healthcare Provider Management of the patient was discussed with: Hospitalist <Alejandro Walker MD - Last Filed: 01/24/22 16:39> Lab Data MDM Lab Attestation statement: I reviewed the patient's lab results. <Alejandro Walker MD - Last Filed: 01/24/22 16:39> Result Diagrams: : 01/24/22 14:47 01/24/22 14:47 <Rahel Gupta NP - Last Filed: 01/24/22 13:44> Labs: Lab Results 01/24/22 01/24/22 01/24/22 Range/Units 14:35 14:47 14:47 WBC 12.2 H (4.8-10.8) X10*3/uL RBC 4.55 (4.20-5.50) X10*6/uL Hgb 12.5 (12.0-16.0) g/dl Hct 38.3 (37.0-47.0) % MCV 84.2 (80.0-98.0) fL MCH 27.5 (27.0-33.0) pg MCHC 32.6 (31.0-35.0) g/dl RDW 15.1 (11.0-16.0) % Plt Count 266 (160-400) X10*3/uL MPV 10.8 (9.4-12.3) fL Immature Gran % (Auto) 0.4 (0.0-0.4) % Neut % (Auto) 89.1 H (45-73) % Lymph % (Auto) 5.3 L (20-40) % [place] % (Auto) 4.8 (2-11) % Eos % (Auto) 0.2 (0-4) % Baso % (Auto) 0.2 (0-2) % Lymph # (Auto) 0.7 L (1.2-4.9) X10*3/uL [place] # (Auto) 0.6 (0.1-1.2) X10*3/uL Eos # (Auto) 0.0 (0.0-0.4) X10*3/uL Baso # (Auto) 0.0 (0.0-0.2) X10*3/uL Abs Immat Gran (auto) 0.05 H (0.00-0.03) X10*3/uL Absolute Neuts (auto) 10.9 H (2.0-8.3) x10*3/uL Absolute Nucleated RBC 0.000 (0.0-0.012) X10*3/uL Nucleated RBC % (auto) 0.0 (0.0-0.2) /100WBC PT 14.8 H (10.0-13.1) SEC INR 1.3 H (0.9-1.1) VBG pH (7.32-7.43) VBG pCO2 mmHg VBG pO2 mmHg VBG HCO3 (22-26) mmol/L VBG O2 Saturation % VBG Base Excess mmol/L Sodium (135-145) mmol/L Potassium (3.3-5.1) mmol/L Chloride (96-108) mmol/L Carbon Dioxide (22-29) mmol/L Anion Gap (12-20) BUN (9-16) mg/dL Creatinine (0.5-1.4) mg/dL Estim Creat Clear Calc Estimated GFR Random Glucose (60-115) mg/dL Lactic Acid (0.5-2.0) mmol/L Calcium (8.4-10.2) mg/dL Magnesium (1.6-2.6) mg/dL Total Bilirubin (0.0-1.0) mg/dL Direct Bilirubin (0.0-0.5) mg/dL AST (5-31) U/L ALT (0-31) U/L Alkaline Phosphatase (39-117) U/L Troponin I High Sens (<3.5-17.0) ng/L B-Natriuretic Peptide (<100) pg/mL Total Protein (6.5-8.0) g/dL Albumin (3.5-5.0) g/dL Influenza Type A (PCR) NEGATIVE (Negative) Influenza Type B (PCR) NEGATIVE (Negative) RSV RNA Qual (PCR) NEGATIVE (Negative) SARS-CoV-2 RNA (RT-PCR) POSITIVE A (Negative) 01/24/22 01/24/22 01/24/22 Range/Units 14:47 14:47 14:47 WBC (4.8-10.8) X10*3/uL RBC (4.20-5.50) X10*6/uL Hgb (12.0-16.0) g/dl Hct (37.0-47.0) % MCV (80.0-98.0) fL MCH (27.0-33.0) pg MCHC (31.0-35.0) g/dl RDW (11.0-16.0) % Plt Count (160-400) X10*3/uL MPV (9.4-12.3) fL Immature Gran % (Auto) (0.0-0.4) % Neut % (Auto) (45-73) % Lymph % (Auto) (20-40) % [place] % (Auto) (2-11) % Eos % (Auto) (0-4) % Baso % (Auto) (0-2) % Lymph # (Auto) (1.2-4.9) X10*3/uL [place] # (Auto) (0.1-1.2) X10*3/uL Eos # (Auto) (0.0-0.4) X10*3/uL Baso # (Auto) (0.0-0.2) X10*3/uL Abs Immat Gran (auto) (0.00-0.03) X10*3/uL Absolute Neuts (auto) (2.0-8.3) x10*3/uL Absolute Nucleated RBC (0.0-0.012) X10*3/uL Nucleated RBC % (auto) (0.0-0.2) /100WBC PT (10.0-13.1) SEC INR (0.9-1.1) VBG pH (7.32-7.43) VBG pCO2 mmHg VBG pO2 mmHg VBG HCO3 (22-26) mmol/L VBG O2 Saturation % VBG Base Excess mmol/L Sodium 134 L (135-145) mmol/L Potassium 3.8 (3.3-5.1) mmol/L Chloride 101 (96-108) mmol/L Carbon Dioxide 23 (22-29) mmol/L Anion Gap 14 (12-20) BUN 17 H (9-16) mg/dL Creatinine 0.61 (0.5-1.4) mg/dL Estim Creat Clear Calc 61.5 Estimated GFR > 60 Random Glucose 186 H (60-115) mg/dL Lactic Acid 2.0 (0.5-2.0) mmol/L Calcium 8.6 D (8.4-10.2) mg/dL Magnesium 2.3 (1.6-2.6) mg/dL Total Bilirubin 1.6 H (0.0-1.0) mg/dL Direct Bilirubin 0.6 H (0.0-0.5) mg/dL AST 13 (5-31) U/L ALT 8 (0-31) U/L Alkaline Phosphatase 93 (39-117) U/L Troponin I High Sens 9.2 (<3.5-17.0) ng/L B-Natriuretic Peptide (<100) pg/mL Total Protein 6.2 L (6.5-8.0) g/dL Albumin 3.8 (3.5-5.0) g/dL Influenza Type A (PCR) (Negative) Influenza Type B (PCR) (Negative) RSV RNA Qual (PCR) (Negative) SARS-CoV-2 RNA (RT-PCR) (Negative) 01/24/22 01/24/22 Range/Units 14:47 14:53 WBC (4.8-10.8) X10*3/uL RBC (4.20-5.50) X10*6/uL Hgb (12.0-16.0) g/dl Hct (37.0-47.0) % MCV (80.0-98.0) fL MCH (27.0-33.0) pg MCHC (31.0-35.0) g/dl RDW (11.0-16.0) % Plt Count (160-400) X10*3/uL MPV (9.4-12.3) fL Immature Gran % (Auto) (0.0-0.4) % Neut % (Auto) (45-73) % Lymph % (Auto) (20-40) % [place] % (Auto) (2-11) % Eos % (Auto) (0-4) % Baso % (Auto) (0-2) % Lymph # (Auto) (1.2-4.9) X10*3/uL [place] # (Auto) (0.1-1.2) X10*3/uL Eos # (Auto) (0.0-0.4) X10*3/uL Baso # (Auto) (0.0-0.2) X10*3/uL Abs Immat Gran (auto) (0.00-0.03) X10*3/uL Absolute Neuts (auto) (2.0-8.3) x10*3/uL Absolute Nucleated RBC (0.0-0.012) X10*3/uL Nucleated RBC % (auto) (0.0-0.2) /100WBC PT (10.0-13.1) SEC INR (0.9-1.1) VBG pH 7.51 H (7.32-7.43) VBG pCO2 26 mmHg VBG pO2 37 mmHg VBG HCO3 21 L (22-26) mmol/L VBG O2 Saturation 73.0 % VBG Base Excess 0.1 mmol/L Sodium (135-145) mmol/L Potassium (3.3-5.1) mmol/L Chloride (96-108) mmol/L Carbon Dioxide (22-29) mmol/L Anion Gap (12-20) BUN (9-16) mg/dL Creatinine (0.5-1.4) mg/dL Estim Creat Clear Calc Estimated GFR Random Glucose (60-115) mg/dL Lactic Acid (0.5-2.0) mmol/L Calcium (8.4-10.2) mg/dL Magnesium (1.6-2.6) mg/dL Total Bilirubin (0.0-1.0) mg/dL Direct Bilirubin (0.0-0.5) mg/dL AST (5-31) U/L ALT (0-31) U/L Alkaline Phosphatase (39-117) U/L Troponin I High Sens (<3.5-17.0) ng/L B-Natriuretic Peptide 44 (<100) pg/mL Total Protein (6.5-8.0) g/dL Albumin (3.5-5.0) g/dL Influenza Type A (PCR) (Negative) Influenza Type B (PCR) (Negative) RSV RNA Qual (PCR) (Negative) SARS-CoV-2 RNA (RT-PCR) (Negative) <Rahel Gupta NP - Last Filed: 01/24/22 13:44> Lab Results 01/24/22 01/24/22 01/24/22 Range/Units 14:35 14:47 14:47 WBC 12.2 H (4.8-10.8) X10*3/uL RBC 4.55 (4.20-5.50) X10*6/uL Hgb 12.5 (12.0-16.0) g/dl Hct 38.3 (37.0-47.0) % MCV 84.2 (80.0-98.0) fL MCH 27.5 (27.0-33.0) pg MCHC 32.6 (31.0-35.0) g/dl RDW 15.1 (11.0-16.0) % Plt Count 266 (160-400) X10*3/uL MPV 10.8 (9.4-12.3) fL Immature Gran % (Auto) 0.4 (0.0-0.4) % Neut % (Auto) 89.1 H (45-73) % Lymph % (Auto) 5.3 L (20-40) % [place] % (Auto) 4.8 (2-11) % Eos % (Auto) 0.2 (0-4) % Baso % (Auto) 0.2 (0-2) % Lymph # (Auto) 0.7 L (1.2-4.9) X10*3/uL [place] # (Auto) 0.6 (0.1-1.2) X10*3/uL Eos # (Auto) 0.0 (0.0-0.4) X10*3/uL Baso # (Auto) 0.0 (0.0-0.2) X10*3/uL Abs Immat Gran (auto) 0.05 H (0.00-0.03) X10*3/uL Absolute Neuts (auto) 10.9 H (2.0-8.3) x10*3/uL Absolute Nucleated RBC 0.000 (0.0-0.012) X10*3/uL Nucleated RBC % (auto) 0.0 (0.0-0.2) /100WBC PT 14.8 H (10.0-13.1) SEC INR 1.3 H (0.9-1.1) VBG pH (7.32-7.43) VBG pCO2 mmHg VBG pO2 mmHg VBG HCO3 (22-26) mmol/L VBG O2 Saturation % VBG Base Excess mmol/L Sodium (135-145) mmol/L Potassium (3.3-5.1) mmol/L Chloride (96-108) mmol/L Carbon Dioxide (22-29) mmol/L Anion Gap (12-20) BUN (9-16) mg/dL Creatinine (0.5-1.4) mg/dL Estim Creat Clear Calc Estimated GFR Random Glucose (60-115) mg/dL Lactic Acid (0.5-2.0) mmol/L Calcium (8.4-10.2) mg/dL Magnesium (1.6-2.6) mg/dL Total Bilirubin (0.0-1.0) mg/dL Direct Bilirubin (0.0-0.5) mg/dL AST (5-31) U/L ALT (0-31) U/L Alkaline Phosphatase (39-117) U/L Troponin I High Sens (<3.5-17.0) ng/L B-Natriuretic Peptide (<100) pg/mL Total Protein (6.5-8.0) g/dL Albumin (3.5-5.0) g/dL Influenza Type A (PCR) NEGATIVE (Negative) Influenza Type B (PCR) NEGATIVE (Negative) RSV RNA Qual (PCR) NEGATIVE (Negative) SARS-CoV-2 RNA (RT-PCR) POSITIVE A (Negative) 01/24/22 01/24/22 01/24/22 Range/Units 14:47 14:47 14:47 WBC (4.8-10.8) X10*3/uL RBC (4.20-5.50) X10*6/uL Hgb (12.0-16.0) g/dl Hct (37.0-47.0) % MCV (80.0-98.0) fL MCH (27.0-33.0) pg MCHC (31.0-35.0) g/dl RDW (11.0-16.0) % Plt Count (160-400) X10*3/uL MPV (9.4-12.3) fL Immature Gran % (Auto) (0.0-0.4) % Neut % (Auto) (45-73) % Lymph % (Auto) (20-40) % [place] % (Auto) (2-11) % Eos % (Auto) (0-4) % Baso % (Auto) (0-2) % Lymph # (Auto) (1.2-4.9) X10*3/uL [place] # (Auto) (0.1-1.2) X10*3/uL Eos # (Auto) (0.0-0.4) X10*3/uL Baso # (Auto) (0.0-0.2) X10*3/uL Abs Immat Gran (auto) (0.00-0.03) X10*3/uL Absolute Neuts (auto) (2.0-8.3) x10*3/uL Absolute Nucleated RBC (0.0-0.012) X10*3/uL Nucleated RBC % (auto) (0.0-0.2) /100WBC PT (10.0-13.1) SEC INR (0.9-1.1) VBG pH (7.32-7.43) VBG pCO2 mmHg VBG pO2 mmHg VBG HCO3 (22-26) mmol/L VBG O2 Saturation % VBG Base Excess mmol/L Sodium 134 L (135-145) mmol/L Potassium 3.8 (3.3-5.1) mmol/L Chloride 101 (96-108) mmol/L Carbon Dioxide 23 (22-29) mmol/L Anion Gap 14 (12-20) BUN 17 H (9-16) mg/dL Creatinine 0.61 (0.5-1.4) mg/dL Estim Creat Clear Calc 61.5 Estimated GFR > 60 Random Glucose 186 H (60-115) mg/dL Lactic Acid 2.0 (0.5-2.0) mmol/L Calcium 8.6 D (8.4-10.2) mg/dL Magnesium 2.3 (1.6-2.6) mg/dL Total Bilirubin 1.6 H (0.0-1.0) mg/dL Direct Bilirubin 0.6 H (0.0-0.5) mg/dL AST 13 (5-31) U/L ALT 8 (0-31) U/L Alkaline Phosphatase 93 (39-117) U/L Troponin I High Sens 9.2 (<3.5-17.0) ng/L B-Natriuretic Peptide (<100) pg/mL Total Protein 6.2 L (6.5-8.0) g/dL Albumin 3.8 (3.5-5.0) g/dL Influenza Type A (PCR) (Negative) Influenza Type B (PCR) (Negative) RSV RNA Qual (PCR) (Negative) SARS-CoV-2 RNA (RT-PCR) (Negative) 01/24/22 01/24/22 Range/Units 14:47 14:53 WBC (4.8-10.8) X10*3/uL RBC (4.20-5.50) X10*6/uL Hgb (12.0-16.0) g/dl Hct (37.0-47.0) % MCV (80.0-98.0) fL MCH (27.0-33.0) pg MCHC (31.0-35.0) g/dl RDW (11.0-16.0) % Plt Count (160-400) X10*3/uL MPV (9.4-12.3) fL Immature Gran % (Auto) (0.0-0.4) % Neut % (Auto) (45-73) % Lymph % (Auto) (20-40) % [place] % (Auto) (2-11) % Eos % (Auto) (0-4) % Baso % (Auto) (0-2) % Lymph # (Auto) (1.2-4.9) X10*3/uL [place] # (Auto) (0.1-1.2) X10*3/uL Eos # (Auto) (0.0-0.4) X10*3/uL Baso # (Auto) (0.0-0.2) X10*3/uL Abs Immat Gran (auto) (0.00-0.03) X10*3/uL Absolute Neuts (auto) (2.0-8.3) x10*3/uL Absolute Nucleated RBC (0.0-0.012) X10*3/uL Nucleated RBC % (auto) (0.0-0.2) /100WBC PT (10.0-13.1) SEC INR (0.9-1.1) VBG pH 7.51 H (7.32-7.43) VBG pCO2 26 mmHg VBG pO2 37 mmHg VBG HCO3 21 L (22-26) mmol/L VBG O2 Saturation 73.0 % VBG Base Excess 0.1 mmol/L Sodium (135-145) mmol/L Potassium (3.3-5.1) mmol/L Chloride (96-108) mmol/L Carbon Dioxide (22-29) mmol/L Anion Gap (12-20) BUN (9-16) mg/dL Creatinine (0.5-1.4) mg/dL Estim Creat Clear Calc Estimated GFR Random Glucose (60-115) mg/dL Lactic Acid (0.5-2.0) mmol/L Calcium (8.4-10.2) mg/dL Magnesium (1.6-2.6) mg/dL Total Bilirubin (0.0-1.0) mg/dL Direct Bilirubin (0.0-0.5) mg/dL AST (5-31) U/L ALT (0-31) U/L Alkaline Phosphatase (39-117) U/L Troponin I High Sens (<3.5-17.0) ng/L B-Natriuretic Peptide 44 (<100) pg/mL Total Protein (6.5-8.0) g/dL Albumin (3.5-5.0) g/dL Influenza Type A (PCR) (Negative) Influenza Type B (PCR) (Negative) RSV RNA Qual (PCR) (Negative) SARS-CoV-2 RNA (RT-PCR) (Negative) <Alejandro Walker MD - Last Filed: 01/24/22 16:39> Independent Interpretation I performed an independent interpretation of an: EKG and Plain X-Ray ( Right lower lobe pneumonia) <Alejandro Walker MD - Last Filed: 01/24/22 16:39> Interpretation: Sinus tachycardia at 1 1 5 beats per minutes incomplete right bundle-branch block, nonspecific T-wave inversion in V2 - V5, no change from previous EKG. <Alejandro Walker MD - Last Filed: 01/24/22 16:39> Radiology Impression Discussion of test interpretation with radiology: I have reviewed the radiologist's reading. <Alejandro Walker MD - Last Filed: 01/24/22 16:39> Radiologist Impression: Mild right mid to lower lung and left lower lobe opacities consistent with small areas of subtle infiltrate. Follow-up films recommended <Alejandro Walker MD - Last Filed: 01/24/22 16:39> Social Determinants Patient?s care significantly limited by Social Determinants of Health including: Inadequate housing <Alejandro Walker MD - Last Filed: 01/24/22 16:39> Discharge Plan Discharge Clinical Impression: Pneumonia, COVID-19 virus infection, SIRS (systemic inflammatory response syndrome), Adult failure to thrive <Rahel Gupta NP - Last Filed: 01/24/22 13:44> Patient Disposition: Admitted As Inpatient <Rahel Gupta NP - Last Filed: 01/24/22 13:44> Prescriptions: No Action oxycodone 5 mg tablet 2.5 mg PO BID PRN (Reason: severe pain (scale score 7-10)) Qty: 6 0RF Rx Instructions: Partial Fill upon patient request. nystatin 100,000 unit/gram ointment 1 appl topical BID 14 Days Qty: 60 0RF Rx Instructions: Apply to rash under breasts twice a day for 2 weeks prednisone 20 mg tablet 40 mg PO DAILY 7 Days Qty: 14 0RF nitrofurantoin monohyd/m-cryst [Macrobid] 100 mg capsule 100 mg PO Q12H 7 Days Qty: 14 0RF Rx Instructions: must administer with a meal/food atorvastatin 20 mg tablet 20 mg PO DAILY lisinopril 20 mg tablet 20 mg PO DAILY levothyroxine 88 mcg tablet 88 mcg PO DAILY omega-3 fatty acids 1,000 mg capsule 1,000 mg PO DAILY alendronate 70 mg tablet 70 mg PO QWEEK atenolol 50 mg tablet 50 mg PO DAILY aspirin [Adult Low Dose Aspirin] 81 mg tablet,delayed release (DR/EC) 81 mg PO DAILY calcium carbonate [Oyster Shell Calcium] 500 mg calcium (1,250 mg) tablet 500 mg PO DAILY ibuprofen 600 mg tablet 600 mg PO Q8H PRN (Reason: pain) 30 Days Qty: 90 2RF cholecalciferol (vitamin D3) 1,250 mcg (50,000 unit) capsule 1,250 mcg PO QWEEK <Rahel Gupta NP - Last Filed: 01/24/22 13:44>
[2022-01-24 14:57] LABS: MANUAL DIFF FLAG NO
[2022-01-24 14:57] LABS: Venous Blood Gas Refer to POC result
[2022-01-24 14:58] LABS: VBG Base Excess 0.1 mmol/L; VBG HCO3 21 mmol/L (22-26); VBG pCO2 26 mmHg; VBG pH 7.51 (7.32-7.43); VBG pO2 37 mmHg
[2022-01-24 14:59] LABS: Basophils Percent Auto 0.2 % (0-2); Eosinophils Percent Auto 0.2 % (0-4); Hematocrit 38.3 % (37.0-47.0); Hemoglobin 12.5 g/dl (12.0-16.0); Imm Gran Abs Auto 0.05 X10*3/uL (0.00-0.03); Imm Gran Pct Auto 0.4 % (0.0-0.4); Lymphocytes Absolute Auto 0.7 X10*3/uL (1.2-4.9); Lymphocytes Percent Auto 5.3 % (20-40); Mean Corpuscular HGB Conc 32.6 g/dl (31.0-35.0); Mean Corpuscular Hemoglobin 27.5 pg (27.0-33.0); Mean Corpuscular Volume 84.2 fL (80.0-98.0); Mean Platelet Volume 10.8 fL (9.4-12.3); Monocytes Absolute Auto 0.6 X10*3/uL (0.1-1.2); Monocytes Percent Auto 4.8 % (2-11); Neutrophils Absolute Auto 10.9 x10*3/uL (2.0-8.3); Neutrophils Percent Auto 89.1 % (45-73); Platelet Count 266 X10*3/uL (160-400); Red Blood Count 4.55 X10*6/uL (4.20-5.50); Red Cell Distribution Width 15.1 % (11.0-16.0); White Blood Count 12.2 X10*3/uL (4.8-10.8)
[2022-01-24 15:07] LABS: INTERNATIONAL NORM RATIO 1.3 (0.9-1.1); Prothrombin Time 14.8 SEC (10.0-13.1)
[2022-01-24 15:17] LABS: Alanine Aminotransferase 8 U/L (0-31); Albumin Level 3.8 g/dL (3.5-5.0); Alkaline Phosphatase 93 U/L (39-117); Anion Gap 14 (12-20); Aspartate Amino Transferase 13 U/L (5-31); Bilirubin Direct 0.6 mg/dL (0.0-0.5); Bilirubin Total 1.6 mg/dL (0.0-1.0); Blood Urea Nitrogen 17 mg/dL (9-16); Calcium 8.6 mg/dL (8.4-10.2); Carbon Dioxide 23 mmol/L (22-29); Chloride 101 mmol/L (96-108); Creatinine Clr Calc Pharmacy 61.5; Estimated Glomerular Filt Rate > 60; Glucose Random 186 mg/dL (60-115); Magnesium 2.3 mg/dL (1.6-2.6); Potassium 3.8 mmol/L (3.3-5.1); Sodium 134 mmol/L (135-145); Total Protein 6.2 g/dL (6.5-8.0)
[2022-01-24 15:21] LABS: B Type Natriuretic Peptide 44 pg/mL (<100); Troponin-I High Sensitivity 9.2 ng/L (<3.5-17.0)
[2022-01-24 15:23] LABS: Influenza A PCR NEGATIVE (Negative); Influenza B PCR NEGATIVE (Negative); Resp Syncy Virus RNA Qual PCR NEGATIVE (Negative); SARS COV2 PCR INHOUSE POSITIVE (Negative)
[2022-01-24] MEDS: 0.9 % Sodium Chloride 1,000 ML 999 ML IV (16:38)
[2022-01-24] MEDS: Piperacillin Sodium/Tazobactam 3.375 GM in 0.9 % Sodium Chloride 50 ML IV (16:49)
[2022-01-24] MEDS: Albuterol/Iprat 2.5/0.5MG 3 ML AMPUL.NEB INHALE (16:52)
[2022-01-24] MEDS: guaiFENesin LA 600 MG TAB.ER.12H 1200 MG PO (17:27)
[2022-01-24] MEDS: Azithromycin 500 MG in 0.9 % Sodium Chloride 250 ML 125 MG IV (17:27)
--- NOTE | 2022-01-24 18:10 | PM.IMHP ---
History of Present Illness Date of Service: 01/24/22 Attending physician on admission: Wilfrid Champagne Chief Complaint: generalized weakness/ cough 76-year-old female patient with past medical history significant for GERD, hypertension, hypothyroidism, intellectual disability, history of skin janes stroke, major depressive disorder, type 2 diabetes mellitus and osteoporosis patient was recently seen at [facility] on 01/07 for left-sided facial numbness and weakness and was diagnosed to have Eddy's palsy during that visit patient was also diagnosed to have Rhonda intertrigo and urinary tract infection therefore was discharged home on 7 days of prednisone, by mouth antibiotic and statin, patient came to [facility] today due to generalized weakness, decreased by mouth intake coughing and bringing up green phlegm, patient denies nausea vomiting or abdominal pain denies any sick contacts, no recent travel she denies chest pain, palpitations, no new localized weakness, numbness, workup in the emergency room showed an elevated WBC count greater than 12,000, chest x-ray showed multilobar pneumonia and COVID 19 positive patient is now being admitted to [facility] due to sepsis related to pneumonia patient treated in the emergency room with 1 L of IV fluid, Zosyn and azithromycin. Review of Systems Review of Systems: General no headache, no dizziness no fever CVS no chest pain, no palpitation. Respiratory Cough mostly dry at times productive of green phlegm Gastrointestinal no nausea no vomiting, no abdominal pain, no diarrhea no urinary urgency frequency musculoskeletal no pain Yes all other systems are reviewed and are negative [facility] Medical History GERD (gastroesophageal reflux disease) Hernia High blood pressure Hypothyroidism Intellectual disability Ischemic stroke Major depressive disorder Osteoporosis Type 2 diabetes mellitus Functional capacity: independent ambulation Pertinent family history: as per patient she has no children never got not aware of her biological parents medical history Surgical History History of rectal surgery Social History Alcohol intake: never Patient Tobacco Use Status: Former Tobacco user Advance Directives: No Advance Directives Information Provided: No Current occupational status: retired Meds Allergies Allergy/AdvReac Type Severity Reaction Status Date / Time propoxyphene [From Darvon] Allergy Mild UNKNOWN Verified 01/24/22 13:41 metformin [Metformin] AdvReac Mild DIARRHEA, Verified 01/24/22 13:41 RASH Active Medications: Current Medications Acetaminophen (Acetaminophen 325 Mg Tablet) 650 mg PO Q6H PRN PRN Reason: Pain, Mild (Pain Scale 1-3) Aspirin (Aspirin Enteric Coated 81 Mg Tablet.) 81 mg PO DAILY [facility] Atenolol (Atenolol 50 Mg Tablet) 50 mg PO DAILY [facility]; Protocol Atorvastatin Calcium (Atorvastatin Calcium 20 Mg Tablet) 20 mg PO DAILY [facility] Enoxaparin Sodium (Enoxaparin Sodium 40 Mg/0.4 Ml Syringe) 40 mg SUBCUT Q24H [facility] Guaifenesin/Dextromethorphan (Guaifenesin Dm 200/20/10 Ml 10 Ml Syrup) 10 ml PO TID [facility] Ceftriaxone Sodium 1 gm/ (Sodium Chloride) 50 mls @ 100 mls/hr IV Q24H [facility] Azithromycin 500 mg/ Sodium (Chloride) 250 mls @ 125 mls/hr IV Q24H [facility] Levothyroxine Sodium (Levothyroxine Sodium 88 Mcg Tablet) 88 mcg PO DAILY@0630 [facility] Melatonin (Melatonin 3 Mg Tablet) 3 mg PO BEDTIME PRN PRN Reason: Insomnia Ondansetron HCl (Ondansetron Hcl 4 Mg/2 Ml Vial) 4 mg IVPUSH Q8H PRN PRN Reason: Nausea and Vomiting Pharmacy Consult (Consult Rx Perform Med Rec) 1 each MISCELLANE ONCE PRN PRN Reason: Consult order Sodium Chloride (0.9 % Sodium Chloride Flush 3 Ml Syringe) 3 ml IVFLUSH QSHIFT [facility] Home Medications Medication Instructions Recorded Confirmed Last Taken Type alendronate 70 mg tablet 70 mg PO CHRISTENSEN@0630 10/13/21 01/24/22 Unknown History aspirin 81 mg tablet,delayed 81 mg PO DAILY 10/13/21 01/24/22 Unknown History release (Adult Low Dose Aspirin) atenolol 50 mg tablet 50 mg PO DAILY 10/13/21 01/24/22 Unknown History atorvastatin 20 mg tablet 20 mg PO DAILY 10/13/21 01/24/22 Unknown History calcium carbonate 500 mg calcium 500 mg PO DAILY 10/13/21 01/24/22 Unknown History (1,250 mg) tablet (Oyster Shell Calcium) levothyroxine 88 mcg tablet 88 mcg PO DAILY@0630 10/13/21 01/24/22 Unknown History lisinopril 20 mg tablet 20 mg PO DAILY 10/13/21 01/24/22 Unknown History omega-3 fatty acids 1,000 mg 1,000 mg PO DAILY 10/13/21 01/24/22 Unknown History capsule cholecalciferol (vitamin D3) 1,250 1,250 mcg PO CHRISTENSEN@0900 12/22/21 01/24/22 Unknown History mcg (50,000 unit) capsule ibuprofen 600 mg tablet 600 mg PO Q8H PRN Pain (Scale 01/24/22 01/24/22 Unknown History Score 1-3) nystatin 100,000 unit/gram topical 1 appl topical BID PRN Rash 01/24/22 01/24/22 Unknown History ointment Physical Exam Vital Signs and Narrative: Vital Signs: Last Vital Signs Temp 98.3 F 01/24/22 13:41 Pulse 107 H 01/24/22 17:18 Resp 20 01/24/22 17:18 BP 113/53 L 01/24/22 17:18 Pulse Ox 94 01/24/22 17:18 O2 Del Method 01/24/22 17:18 BMI result Body Mass Index 17.9 Const: Other: General awake alert x3, frail, resting comfortably in no acute distress. left facial palsy Neck supple no JVD. CVS regular rate rhythm, Respiratory lungs bilateral basilar rhonchi, no respiratory distress, no wheeze. Gastrointestinal abdomen soft, nontender, bowel sounds audible, no guarding , no rigidity. Extremities no edema. Neuro moving all 4 extremity speech clear. Skin no rash psych depressive mood Results Labs CBC and Chem 7: 01/24/22 14:47 01/24/22 14:47 Labs: Laboratory Results - last 24 hr 01/24/22 01/24/22 01/24/22 14:35 14:47 14:47 MCV 84.2 MCH 27.5 MCHC 32.6 RDW 15.1 Plt Count 266 MPV 10.8 Immature Gran % (Auto) 0.4 Neut % (Auto) 89.1 H Lymph % (Auto) 5.3 L [place] % (Auto) 4.8 Eos % (Auto) 0.2 Baso % (Auto) 0.2 Lymph # (Auto) 0.7 L [place] # (Auto) 0.6 Eos # (Auto) 0.0 Baso # (Auto) 0.0 Abs Immat Gran (auto) 0.05 H Absolute Neuts (auto) 10.9 H Absolute Nucleated RBC 0.000 Nucleated RBC % (auto) 0.0 PT 14.8 H INR 1.3 H VBG pH VBG pCO2 VBG pO2 VBG HCO3 VBG O2 Saturation VBG Base Excess Anion Gap Estim Creat Clear Calc Estimated GFR Random Glucose Lactic Acid Calcium Magnesium Total Bilirubin Direct Bilirubin AST ALT Alkaline Phosphatase Troponin I High Sens B-Natriuretic Peptide Total Protein Albumin Influenza Type A (PCR) NEGATIVE Influenza Type B (PCR) NEGATIVE RSV RNA Qual (PCR) NEGATIVE SARS-CoV-2 RNA (RT-PCR) POSITIVE A 01/24/22 01/24/22 01/24/22 14:47 14:47 14:47 MCV MCH MCHC RDW Plt Count MPV Immature Gran % (Auto) Neut % (Auto) Lymph % (Auto) [place] % (Auto) Eos % (Auto) Baso % (Auto) Lymph # (Auto) [place] # (Auto) Eos # (Auto) Baso # (Auto) Abs Immat Gran (auto) Absolute Neuts (auto) Absolute Nucleated RBC Nucleated RBC % (auto) PT INR VBG pH VBG pCO2 VBG pO2 VBG HCO3 VBG O2 Saturation VBG Base Excess Anion Gap 14 Estim Creat Clear Calc 61.5 Estimated GFR > 60 Random Glucose 186 H Lactic Acid 2.0 Calcium 8.6 D Magnesium 2.3 Total Bilirubin 1.6 H Direct Bilirubin 0.6 H AST 13 ALT 8 Alkaline Phosphatase 93 Troponin I High Sens 9.2 B-Natriuretic Peptide Total Protein 6.2 L Albumin 3.8 Influenza Type A (PCR) Influenza Type B (PCR) RSV RNA Qual (PCR) SARS-CoV-2 RNA (RT-PCR) 01/24/22 01/24/22 14:47 14:53 MCV MCH MCHC RDW Plt Count MPV Immature Gran % (Auto) Neut % (Auto) Lymph % (Auto) [place] % (Auto) Eos % (Auto) Baso % (Auto) Lymph # (Auto) [place] # (Auto) Eos # (Auto) Baso # (Auto) Abs Immat Gran (auto) Absolute Neuts (auto) Absolute Nucleated RBC Nucleated RBC % (auto) PT INR VBG pH 7.51 H VBG pCO2 26 VBG pO2 37 VBG HCO3 21 L VBG O2 Saturation 73.0 VBG Base Excess 0.1 Anion Gap Estim Creat Clear Calc Estimated GFR Random Glucose Lactic Acid Calcium Magnesium Total Bilirubin Direct Bilirubin AST ALT Alkaline Phosphatase Troponin I High Sens B-Natriuretic Peptide 44 Total Protein Albumin Influenza Type A (PCR) Influenza Type B (PCR) RSV RNA Qual (PCR) SARS-CoV-2 RNA (RT-PCR) Imaging Radiologist's Impressions: Impressions Chest X-Ray 01/24/22 13:59 IMPRESSION: Mild right mid to lower lung and left lower lobe opacities consistent with small areas of subtle infiltrate. Follow-up films recommended Assessment and Plan (1) COVID-19 virus infection: Status: Acute (2) Pneumonia: Status: Acute Plan 76-year-old female patient, with past medical history of hypertension, hypothyroidism, intellectual disability, ischemic stroke, major depressive disorder,currently residing in [facility] for last 4 months being followed by carlos manuel [employer] shoe caser closely for arrangement for housing, patient was recently seen at [facility] on 01/02 and was diagnosed to have left facial palsy and was discharged home on prednisone during that visit patient was also diagnosed to have urinary tract infection and Rhonda intertrigo presented to [facility] due to generalized weakness, decreased by mouth intake cough productive of greenish phlegm and diagnosed to have COVID-19 infection and pneumonia sepsis due to pneumonia meet sepsis criteria due to tachycardia and leukocytosis will admit to medical floor place patient on IV ceftriaxone and azithromycin, no hypoxia, add cough medication oxygen as needed , follow blood cultures x2 COVID-19 infection no hypoxia noted continue supportive care. hypertension noted to have soft blood pressure will continue atenolol and hold lisinopril follow blood pressure closely. hypothyroidism check TSH and continue Synthroid recent episode of Eddy's palsy status post prednisone mood disorder not on any antidepressants DVT prophylaxis on Lovenox code status patient wishes to be DNR DNI has no family member in my clinical judgment patient need 2 night inpatient stay due to sepsis related to multifocal pneumonia on IV antibiotics Time Spent With Patient Time: Total time managing care of this patient today ____ minutes. Quality Stroke Does the patient have a stroke diagnosis?: No VTE Prior VTE?: No VTE Risk Level:: Medical - moderate - high VTE Device Contraindication: Treatment Not Indicated VTE Drug Contraindication: N/A - Med Ordered
[2022-01-24] MEDS: Enoxaparin Sodium 40 MG/0.4 ML SYRINGE SUBCUT (20:23)
[2022-01-24] MEDS: cefTRIAXone sodium 1 GM in 0.9 % Sodium Chloride 50 ML IV (20:23)
[2022-01-24] MEDS: guaiFENesin DM 200/20/10 ML 10 ML SYRUP PO (20:24)
--- NOTE | 2022-01-24 20:44 | PC.NURSE ---
Addendum entered by Juanita Low 01/24/22 21:24: Pt's vomit was yellow liquid consistency ~300cc , pt's IV is left wrist 18g. Original Note: PT's V/S are stable, pt is the monitor and it shows NSR. Pt is cough a nonproductive cough,pt has lower lobes fine crackles sound. PT was vomiting at the time of the re-assessment. Pt has been admitted and this nurse will give report to room 475.
[2022-01-24] MEDS: Acetaminophen 325 MG TABLET 650 MG PO (22:07)
[2022-01-24] MEDS: 0.9 % Sodium Chloride Flush 3 ML SYRINGE IVFLUSH (22:10)
[2022-01-25 04:00] VITALS: BP 124/60; PULSE 66; RESP 16; TEMP 36.4; O2SAT 94
[2022-01-25] MEDS: Levothyroxine Sodium 88 MCG TABLET PO (05:43)
[2022-01-25 07:33] VITALS: BP 98/59; PULSE 65; RESP 18; TEMP 36.3; O2SAT 97
--- NOTE | 2022-01-25 09:28 | MHC.CM.PN ---
Patient is Covid (+); CM spoke with Patient's Community CM/loan workout officer @ [employer]Iwona Hodges @ [phone] and addressed IMM with Iwona (original successfully faxed to Iwona at her request @[phone] and a copy has been placed on the chart).Patient has been living in a hotel for the past 2 weeks and was supposed to be receiving the keys to her new apartment today, new furniture tomorrow, and moving in on 01/27/2022. Home to this new apartment on 01/27/2022 with 2 hours/day of [employer] services and a new VNA if needed is the goal and CM has initiated and will follow for dc [planning. Patient has received no Covid vax and her PCP is Dr. Sangeetha Sage.
[2022-01-25] MEDS: Aspirin Enteric Coated 81 MG TABLET.DR PO (09:40)
[2022-01-25] MEDS: Atorvastatin Calcium 20 MG TABLET PO (09:41)
[2022-01-25] MEDS: guaiFENesin DM 200/20/10 ML 10 ML SYRUP PO ×3 (09:41→19:53)
[2022-01-25] MEDS: 0.9 % Sodium Chloride Flush 3 ML SYRINGE IVFLUSH ×2 (09:41→15:35)
[2022-01-25 11:23] VITALS: BMI 17.9
[2022-01-25 11:28] VITALS: BP 109/67; PULSE 69; RESP 20; TEMP 37.5; O2SAT 98
--- NOTE | 2022-01-25 11:51 | MHC.CLN ---
RE: CONSULT PT IS MODERATELY MALNOURISHED PT WITH MILDLY DEPLETED SUBCUTANEOUS FAT AND MUSCLE MASS WITH 5% SIGNIFICANT WT LOSS X 4 MONTHS AND POOR PO INTAKE DIET RX: CARDIAC-RECOMMEND 1500DM DIET TO MEET NEEDS RECOMMEND ADDING GLUCERNA BID TO INCREASE KCALS AND PROTEIN MONITOR PO INTAKE CLOSELY SEE ALSO FULL CLINICAL NUTRITION ASSESSMENT
--- NOTE | 2022-01-25 12:51 | P.PNIM_ITS ---
Subjective Subjective Date of Service: 01/25/22 Interval History: Patient feeling better this morning complaining of less shortness of breath and cough, denies fever but feeling cold no other acute events overnight denies chest pain, no lightheadedness, vitals are stable finger oximetry 98% on room air, no acute events overnight Review of Systems Review of Systems: Yes all other systems are reviewed and are negative Physical Exam Vital Signs: Vital Signs: Last Vital Signs Temp 99.5 F 01/25/22 11:28 Pulse 69 01/25/22 11:28 Resp 20 01/25/22 11:28 BP 109/67 01/25/22 11:28 Pulse Ox 98 01/25/22 11:28 O2 Del Method 01/25/22 11:28 BMI result Body Mass Index 17.9 Const: Other: General? awake alert x3, frail, resting comfortably in no acute distress.? left facial palsy Neck supple no JVD. CVS? regular rate rhythm, Respiratory lungs?few bilateral basilar rhonchi, no respiratory distress, no wheeze. Gastrointestinal abdomen soft, nontender, bowel sounds audible, no guarding , no rigidity. Extremities no edema. Neuro moving all 4 extremity speech clear. psych appropriate affect Objective Data Active Medications Acetaminophen (Acetaminophen 325 Mg Tablet) 650 mg PO Q6H PRN PRN Reason: Pain, Mild (Pain Scale 1-3) Last Admin: 01/24/22 22:07 Dose: 650 mg Documented By: NAPOLEON Aspirin (Aspirin Enteric Coated 81 Mg Tablet.) 81 mg PO DAILY [facility] Last Admin: 01/25/22 09:40 Dose: 81 mg Documented By: MAYLIN Atorvastatin Calcium (Atorvastatin Calcium 20 Mg Tablet) 20 mg PO DAILY [facility] Last Admin: 01/25/22 09:41 Dose: 20 mg Documented By: MAYLIN Enoxaparin Sodium (Enoxaparin Sodium 40 Mg/0.4 Ml Syringe) 40 mg SUBCUT Q24H [facility] Last Admin: 01/24/22 20:23 Dose: 40 mg Documented By: ROBERT Guaifenesin/Dextromethorphan (Guaifenesin Dm 200/20/10 Ml 10 Ml Syrup) 10 ml PO TID [facility] Last Admin: 01/25/22 09:41 Dose: 10 ml Documented By: MAYLIN Ceftriaxone Sodium 1 gm/ (Sodium Chloride) 50 mls @ 100 mls/hr IV Q24H [facility] Last Infusion: 01/24/22 20:53 Dose: 0 mls/hr Documented By: ROBERT Azithromycin 500 mg/ Sodium (Chloride) 250 mls @ 125 mls/hr IV Q24H [facility] Levothyroxine Sodium (Levothyroxine Sodium 88 Mcg Tablet) 88 mcg PO DAILY@0630 [facility] Last Admin: 01/25/22 05:43 Dose: 88 mcg Documented By: NAPOLEON Melatonin (Melatonin 3 Mg Tablet) 3 mg PO BEDTIME PRN PRN Reason: Insomnia Ondansetron HCl (Ondansetron Hcl 4 Mg/2 Ml Vial) 4 mg IVPUSH Q8H PRN PRN Reason: Nausea and Vomiting Pharmacy Consult (Consult Rx Perform Med Rec) 1 each MISCELLANE ONCE PRN PRN Reason: Consult order Sodium Chloride (0.9 % Sodium Chloride Flush 3 Ml Syringe) 3 ml IVFLUSH QSHIFT [facility] Last Admin: 01/25/22 09:41 Dose: 3 ml Documented By: MAYLIN Labs CBC & Chem 7: 01/24/22 14:47 01/24/22 14:47 Labs: Laboratory Results - last 24 hr 01/24/22 01/24/22 01/24/22 14:35 14:47 14:47 MCV 84.2 MCH 27.5 MCHC 32.6 RDW 15.1 Plt Count 266 MPV 10.8 Immature Gran % (Auto) 0.4 Neut % (Auto) 89.1 H Lymph % (Auto) 5.[address] [place] % (Auto) 4.8 Eos % (Auto) 0.2 Baso % (Auto) 0.2 Lymph # (Auto) 0.[address] [facility] # (Auto) 0.6 Eos # (Auto) 0.0 Baso # (Auto) 0.0 Abs Immat Gran (auto) 0.05 H Absolute Neuts (auto) 10.9 H Absolute Nucleated RBC 0.000 Nucleated RBC % (auto) 0.0 PT 14.8 H INR 1.3 H VBG pH VBG pCO2 VBG pO2 VBG HCO3 VBG O2 Saturation VBG Base Excess Anion Gap Estim Creat Clear Calc Estimated GFR Random Glucose Lactic Acid Calcium Magnesium Total Bilirubin Direct Bilirubin AST ALT Alkaline Phosphatase Troponin I High Sens B-Natriuretic Peptide Total Protein Albumin Influenza Type A (PCR) NEGATIVE Influenza Type B (PCR) NEGATIVE RSV RNA Qual (PCR) NEGATIVE SARS-CoV-2 RNA (RT-PCR) POSITIVE A 01/24/22 01/24/22 01/24/22 14:47 14:47 14:47 MCV MCH MCHC RDW Plt Count MPV Immature Gran % (Auto) Neut % (Auto) Lymph % (Auto) [facility] [facility] % (Auto) Eos % (Auto) Baso % (Auto) Lymph # (Auto) [facility] # (Auto) Eos # (Auto) Baso # (Auto) Abs Immat Gran (auto) Absolute Neuts (auto) Absolute Nucleated RBC Nucleated RBC % (auto) PT INR VBG pH VBG pCO2 VBG pO2 VBG HCO3 VBG O2 Saturation VBG Base Excess Anion Gap 14 Estim Creat Clear Calc 61.5 Estimated GFR > 60 Random Glucose 186 H Lactic Acid 2.0 Calcium 8.6 D Magnesium 2.3 Total Bilirubin 1.6 H Direct Bilirubin 0.6 H AST 13 ALT 8 Alkaline Phosphatase 93 Troponin I High Sens 9.2 B-Natriuretic Peptide Total Protein 6.2 L Albumin 3.8 Influenza Type A (PCR) Influenza Type B (PCR) RSV RNA Qual (PCR) SARS-CoV-2 RNA (RT-PCR) 01/24/22 01/24/22 14:47 14:53 MCV MCH MCHC RDW Plt Count MPV Immature Gran % (Auto) Neut % (Auto) Lymph % (Auto) [facility] % (Auto) Eos % (Auto) Baso % (Auto) Lymph # (Auto) [facility] # (Auto) Eos # (Auto) Baso # (Auto) Abs Immat Gran (auto) Absolute Neuts (auto) Absolute Nucleated RBC Nucleated RBC % (auto) PT INR VBG pH 7.51 H VBG pCO2 26 VBG pO2 37 VBG HCO3 21 L VBG O2 Saturation 73.0 VBG Base Excess 0.1 Anion Gap Estim Creat Clear Calc Estimated GFR Random Glucose Lactic Acid Calcium Magnesium Total Bilirubin Direct Bilirubin AST ALT Alkaline Phosphatase Troponin I High Sens B-Natriuretic Peptide 44 Total Protein Albumin Influenza Type A (PCR) Influenza Type B (PCR) RSV RNA Qual (PCR) SARS-CoV-2 RNA (RT-PCR) Assessment and Plan (1) Pneumonia: Status: Acute (2) COVID-19 virus infection: Status: Acute Plan 76-year-old? female patient, with past medical history of? hypertension, hypothyroidism, intellectual disability, ischemic stroke, major depressive disorder,currently residing in [facility] for last 4 months being followed by carlos manuel [employer] outpatient case manager closely for arrangement for housing, patient was recently seen at [facility] on 01/02 and was diagnosed to have left facial palsy and was discharged home on prednisone during that visit patient was also diagnosed to have urinary tract infection and Rhonda intertrigo presented to [facility] due to generalized weakness, decreased by mouth intake cough productive of greenish phlegm and diagnosed to have COVID-19 infection and pneumonia ?sepsis due to pneumonia ?Tachycardia resolved patient appears comfortable continue IV ceftriaxone and azithromycin day 2, no hypoxia, Continue cough medication, oxygen as needed , follow blood cultures x2, follow CBC ?COVID-19 infection ?no hypoxia noted continue supportive care. ?hypertension noted to have soft blood pressure will continue atenolol and hold lisinopril follow blood pressure closely. ?hypothyroidism continue Synthroid ?recent episode of Eddy's palsy status post prednisone ?mood disorder not on any antidepressants Moderate malnutrition added ensure ? DVT prophylaxis on Lovenox ?code status DNR DNI , is spoke with patient's case supervisor Ana from [employer] at [phone] according to her patient is a own guardian and is competent to make her own decisions there is no MOLST form on patient ?in my clinical judgment patient need continued inpatient stay due to sepsis related to multifocal pneumonia on IV antibiotics Time Spent With Patient Time: Total time managing care of this patient today ____ minutes. Quality Stroke Does the patient have a stroke diagnosis?: No VTE Prior VTE?: No VTE Risk Level:: Medical - moderate - high VTE Device Contraindication: Treatment Not Indicated VTE Drug Contraindication: N/A - Med Ordered
[2022-01-25 15:30] VITALS: BP 121/58; PULSE 81; RESP 17; TEMP 36.6; O2SAT 94
[2022-01-25] MEDS: Azithromycin 500 MG in 0.9 % Sodium Chloride 250 ML 125 MG IV (15:35)
[2022-01-25 19:41] VITALS: BP 147/68; PULSE 78; RESP 18; TEMP 37.1; O2SAT 98
[2022-01-25] MEDS: cefTRIAXone sodium 1 GM in 0.9 % Sodium Chloride 50 ML IV (19:53)
[2022-01-25] MEDS: Enoxaparin Sodium 40 MG/0.4 ML SYRINGE SUBCUT (19:54)
[2022-01-26] VITALS (7 sets, daily range): BP systolic 121–169; BP diastolic 64–83; PULSE 69–81; RESP 12–18; TEMP 36.4–37.1; O2SAT 92–97
[2022-01-26] MEDS: Levothyroxine Sodium 88 MCG TABLET PO (05:24)
[2022-01-26 06:28] LABS: Hematocrit 27.6 % (37.0-47.0); Hemoglobin 8.8 g/dl (12.0-16.0); Mean Corpuscular HGB Conc 31.9 g/dl (31.0-35.0); Mean Corpuscular Hemoglobin 26.7 pg (27.0-33.0); Mean Corpuscular Volume 83.9 fL (80.0-98.0); Mean Platelet Volume 10.5 fL (9.4-12.3); Platelet Count 248 X10*3/uL (160-400); Red Blood Count 3.29 X10*6/uL (4.20-5.50); Red Cell Distribution Width 14.7 % (11.0-16.0); White Blood Count 6.2 X10*3/uL (4.8-10.8)
[2022-01-26 07:24] LABS: Alanine Aminotransferase 8 U/L (0-31); Albumin Level 2.9 g/dL (3.5-5.0); Alkaline Phosphatase 73 U/L (39-117); Aspartate Amino Transferase 15 U/L (5-31); Bilirubin Direct 0.2 mg/dL (0.0-0.5); Bilirubin Total 0.6 mg/dL (0.0-1.0); Thyroid Stimulating Hormone 0.28 uIU/mL (0.32-4.0); Total Protein 4.8 g/dL (6.5-8.0)
[2022-01-26] MEDS: Aspirin Enteric Coated 81 MG TABLET.DR PO (09:50)
[2022-01-26] MEDS: 0.9 % Sodium Chloride Flush 3 ML SYRINGE IVFLUSH ×2 (09:50→15:46)
[2022-01-26] MEDS: Atorvastatin Calcium 20 MG TABLET PO (09:50)
[2022-01-26] MEDS: guaiFENesin DM 200/20/10 ML 10 ML SYRUP PO ×3 (09:50→19:28)
--- NOTE | 2022-01-26 13:42 | MHC.CLN ---
F/U PT IS MODERATELY MALNOURISHED SEE FULL CLINICAL NUTRITION ASSESSMENT DATED 01/25/22 PO INTAKE 75% X1 MEAL DIET RX: 1500DM -APPROPRIATE PT RECEIVING GLUCERNA BID TO INCREASE KCALS AND PROTEIN MONITOR PO INTAKE CLOSELY
--- NOTE | 2022-01-26 13:46 | P.PNIM_ITS ---
Subjective Subjective Date of Service: 01/26/22 Interval History: Feeling better but complaining of cough requesting for cough medication, denies fever chills, tolerating diet, no other acute issues, denies skin rash, or itching, denies nausea, vomiting, abdominal pain, no acute issues overnight, no lightheadedness, no dizziness. Review of Systems Review of Systems: Yes all other systems are reviewed and are negative Physical Exam Vital Signs: Vital Signs: Last Vital Signs Temp 97.6 F 01/26/22 12:00 Pulse 81 01/26/22 12:00 Resp 14 01/26/22 12:00 BP 138/74 01/26/22 12:00 Pulse Ox 93 01/26/22 12:00 O2 Del Method 01/26/22 12:00 BMI result Body Mass Index 17.9 Const: Other: General? awake roscoe rt x3, frail, rest ing comfortably in no acute distress .? left facial pal sy Neck supple no JVD. CVS? regular rate rhythm, Respi ratory lungs?few b ilateral basilar r honchi, no respira tory distress, no wheeze. Gastrointe stinal abdomen sof t, nontender, kanu l sounds audible, no guarding , no r igidity. Extremiti es no edema. Skin no rash Neuro movi ng all 4 extremity speech clear. psy ch appropriate aff ect Objective Data Active Medications Acetaminophen (Acetaminophen 325 Mg Tablet) 650 mg PO Q6H PRN PRN Reason: Pain, Mild (Pain Scale 1-3) Last Admin: 01/24/22 22:07 Dose: 650 mg Documented By: NAPOLEON Aspirin (Aspirin Enteric Coated 81 Mg Tablet.) 81 mg PO DAILY [facility] Last Admin: 01/26/22 09:50 Dose: 81 mg Documented By: MAGAN Atorvastatin Calcium (Atorvastatin Calcium 20 Mg Tablet) 20 mg PO DAILY [facility] Last Admin: 01/26/22 09:50 Dose: 20 mg Documented By: MAGAN Enoxaparin Sodium (Enoxaparin Sodium 40 Mg/0.4 Ml Syringe) 40 mg SUBCUT Q24H [facility] Last Admin: 01/25/22 19:54 Dose: 40 mg Documented By: WILDER Guaifenesin/Dextromethorphan (Guaifenesin Dm 200/20/10 Ml 10 Ml Syrup) 10 ml PO TID [facility] Last Admin: 01/26/22 09:50 Dose: 10 ml Documented By: MAGAN Ceftriaxone Sodium 1 gm/ (Sodium Chloride) 50 mls @ 100 mls/hr IV Q24H [facility] Last Infusion: 01/25/22 20:24 Dose: 0 mls/hr Documented By: WILDER Azithromycin 500 mg/ Sodium (Chloride) 250 mls @ 125 mls/hr IV Q24H [facility] Last Infusion: 01/25/22 17:53 Dose: 0 mls/hr Documented By: MAYLIN Levothyroxine Sodium (Levothyroxine Sodium 88 Mcg Tablet) 88 mcg PO DAILY@0630 [facility] Last Admin: 01/26/22 05:24 Dose: 88 mcg Documented By: WILDER Melatonin (Melatonin 3 Mg Tablet) 3 mg PO BEDTIME PRN PRN Reason: Insomnia Ondansetron HCl (Ondansetron Hcl 4 Mg/2 Ml Vial) 4 mg IVPUSH Q8H PRN PRN Reason: Nausea and Vomiting Pharmacy Consult (Consult Rx Perform Med Rec) 1 each MISCELLANE ONCE PRN PRN Reason: Consult order Sodium Chloride (0.9 % Sodium Chloride Flush 3 Ml Syringe) 3 ml IVFLUSH QSHIFT [facility] Last Admin: 01/26/22 09:50 Dose: 3 ml Documented By: MAGAN Labs CBC & Chem 7: 01/26/22 06:00 01/24/22 14:47 Labs: Laboratory Results - last 24 hr 01/26/22 01/26/22 06:00 06:00 MCV 83.9 MCH 26.7 L MCHC 31.9 RDW 14.7 Plt Count 248 MPV 10.5 Absolute Nucleated RBC 0.000 Nucleated RBC % (auto) 0.0 Total Bilirubin 0.6 Direct Bilirubin 0.2 AST 15 ALT 8 Alkaline Phosphatase 73 Total Protein 4.8 L Albumin 2.9 L TSH 0.28 L Microbiology Microbiology Results: Microbiology 01/24/22 14:47 Blood Culture - Preliminary Blood - Venous No growth after 24 hours. 01/24/22 14:35 Blood Culture - Preliminary Blood - Venous No growth after 24 hours. Assessment and Plan (1) Pneumonia: Status: Acute (2) COVID-19 virus infection: Status: Acute Plan 76-year-old? female patient, with past medical history of? hypertension, hypothyroidism, intellectual disability, ischemic stroke, major depressive disorder,currently residing in [facility] for last 4 months being followed by carlos manuel Dooley insurance case manager closely for arrangement for housing, patient was recently seen at [facility] on 01/02 and was diagnosed to have left facial palsy and was discharged home on prednisone during that visit patient was also diagnosed to have urinary tract infection and Rhonda intertrigo presented to [facility] due to generalized weakness, decreased by mouth intake cough productive of greenish phlegm and diagnosed to have COVID-19 infection and pneumonia ?sepsis due to pneumonia ?Sepsis resolved, appears comfortable on IV ceftriaxone and azithromycin day 3, no hypoxia, will transition to by mouth antibiotic upon discharge Continue cough medication, oxygen as needed , blood cultures x2 negative, follow CBC Acute anemia noted to have drop in hematocrit no acute blood loss noted likely due to acute infection follow CBC hematocrit above threshold for transfusion ?COVID-19 infection ?no hypoxia noted continue supportive care. ?hypertension blood pressure improved continue atenolol and resume lisinopril ?hypothyroidism continue Synthroid TSH 0.28 recommend follow-up TSH in 6 weeks ?recent episode of Eddy's palsy status post prednisone, no skin rash noted ?mood disorder not on any antidepressants Moderate malnutrition continue ensure ? DVT prophylaxis on Lovenox ?code status DNR DNI , ?in my clinical judgment patient need continued inpatient stay due to sepsis related to multifocal pneumonia on IV antibiotics Time Spent With Patient Time: Total time managing care of this patient today ____ minutes. Quality Stroke Does the patient have a stroke diagnosis?: No VTE Prior VTE?: No VTE Risk Level:: Medical - moderate - high VTE Device Contraindication: Treatment Not Indicated VTE Drug Contraindication: N/A - Med Ordered
--- NOTE | 2022-01-26 14:56 | MHC.CM.PN ---
Per MD rounds no dc today. Discharge is planned for tomorrow. DP home with [facility] 2 hours/day. [facility] will provide transportation home.
[2022-01-26] MEDS: Azithromycin 500 MG in 0.9 % Sodium Chloride 250 ML 125 MG IV (16:25)
[2022-01-26] MEDS: Enoxaparin Sodium 40 MG/0.4 ML SYRINGE SUBCUT (19:28)
[2022-01-26] MEDS: cefTRIAXone sodium 1 GM in 0.9 % Sodium Chloride 50 ML IV (19:28)
[2022-01-27 03:43] VITALS: BP 169/87; PULSE 72; RESP 16; TEMP 36.7; O2SAT 93
[2022-01-27] MEDS: Levothyroxine Sodium 88 MCG TABLET PO (05:02)
[2022-01-27 06:49] LABS: Hematocrit 29.3 % (37.0-47.0); Hemoglobin 9.3 g/dl (12.0-16.0); Mean Corpuscular HGB Conc 31.7 g/dl (31.0-35.0); Mean Corpuscular Hemoglobin 26.8 pg (27.0-33.0); Mean Corpuscular Volume 84.4 fL (80.0-98.0); Mean Platelet Volume 10.4 fL (9.4-12.3); Platelet Count 323 X10*3/uL (160-400); Red Blood Count 3.47 X10*6/uL (4.20-5.50); Red Cell Distribution Width 15.1 % (11.0-16.0); White Blood Count 4.8 X10*3/uL (4.8-10.8)
[2022-01-27 08:00] VITALS: BP 167/81; PULSE 71; RESP 18; TEMP 36.3; O2SAT 93
[2022-01-27] MEDS: guaiFENesin DM 200/20/10 ML 10 ML SYRUP PO (08:43)
[2022-01-27] MEDS: Aspirin Enteric Coated 81 MG TABLET.DR PO (08:43)
[2022-01-27] MEDS: 0.9 % Sodium Chloride Flush 3 ML SYRINGE IVFLUSH (08:43)
[2022-01-27] MEDS: Atorvastatin Calcium 20 MG TABLET PO (08:43)
[2022-01-27] MEDS: atenoloL 50 MG TABLET PO (10:24)
[2022-01-27] MEDS: lisinopriL 10 MG TABLET PO (10:24)
--- NOTE | 2022-01-27 11:28 | MHC.CM.PN ---
Per ROUNDS discussion, Patient will be medically cleared for dc to home today, self care. Patient's home services through [facility] will resume; a [employer] staff Member will provide transportation to home today at 1 PM (PER [employer] PATRICIA/Iwona @ [phone]). Last IMM addressed on 01/25/2022.
[2022-01-27 12:00] VITALS: BP 169/79; PULSE 71; RESP 18; TEMP 36.6; O2SAT 94
--- NOTE | 2022-01-27 12:11 | PM.DS ---
DS: Providers Provider Date of Service: 01/27/22 Date of admission: 01/24/22 17:59 Primary care physician: Sangeetha Sage MD DS: Diagnosis Discharge Diagnosis (1) Pneumonia: Status: Acute (2) COVID-19 virus infection: Status: Acute DS: Summary Hospital Course Hospital Course: Chief Complaint:? generalized weakness/ cough ?76-year-old female patient with past medical history significant for GERD, hypertension, hypothyroidism, intellectual disability, history of skin janes stroke, major depressive disorder, type 2 diabetes mellitus and osteoporosis patient was recently seen at [facility] on 01/07 for left-sided facial numbness and weakness and was diagnosed to have Eddy's palsy during that visit patient was also diagnosed to have Rhonda intertrigo and urinary tract infection therefore was discharged home on 7 days of prednisone, by mouth antibiotic and statin, patient came to [facility] today? due to generalized weakness, decreased by mouth intake coughing and bringing up green phlegm, patient denies nausea vomiting or abdominal pain denies any sick contacts, no recent travel she denies chest pain, palpitations, no new? localized weakness, numbness, workup in the emergency room showed an elevated WBC count greater than 12,000, chest x-ray showed multilobar pneumonia and COVID 19 positive patient is now being admitted to [facility] due to sepsis related to pneumonia patient treated in the emergency room with 1 L of IV fluid, Zosyn and azithromycin. Hospital course 76-year-old? female patient, with past medical history of? hypertension, hypothyroidism, intellectual disability, ischemic stroke, major depressive disorder,currently residing in [facility] for last 4 months being followed by carlos manuel Dooley case repairer closely for arrangement for housing, patient was recently seen at [facility] on 01/02 and was diagnosed to have left facial palsy and was discharged home on prednisone during that visit patient was also diagnosed to have urinary tract infection and Rhonda intertrigo presented to [facility] due to generalized weakness, decreased by mouth intake cough productive of greenish phlegm and diagnosed to have COVID-19 infection and pneumonia ?sepsis due to community-acquired pneumonia, patient admitted to medical floor treated with IV ceftriaxone and azithromycin blood cultures x2 came back negative the patient has wanted well to above treatment currently doing better with less cough and shortness of breath, patient is now being discharged home on by mouth antibiotic for total 5 day course of antibiotics. ? Acute anemia noted to have drop in hematocrit no acute blood loss noted likely due to acute infection repeat hematocrit improved patient did not require blood transfusion ?COVID-19 infection?no hypoxia noted continue supportive care. ?hypertension blood pressure low on admission therefore dose of lisinopril reduced to 10 mg continue atenolol ?hypothyroidism? continue Synthroid TSH 0.28 recommend follow-up TSH in 6 weeks ?recent episode of Eddy's palsy status post prednisone, ?mood disorder not on any antidepressants ?Moderate malnutrition continue ensure Time Spent with Patient Time attestation: Total time managing care of this patient today ____ minutes. Discharge coordination time: Greater than 30 minutes Quality: Safe Use of Opioids Does Pt have an Active Cancer Diagnosis on the Problem List?: No Quality: Stroke Does the patient have a stroke diagnosis?: No Physical Exam Vital Signs: Vital Signs: Last Vital Signs Temp 97.3 F 01/27/22 08:00 Pulse 71 01/27/22 08:00 Resp 18 01/27/22 08:00 BP 167/81 H 01/27/22 08:00 Pulse Ox 93 01/27/22 08:00 O2 Del Method 01/27/22 08:00 BMI result Body Mass Index 17.9 Const: Other: General? awake alert x3, frail, resting comfortably in no acute distress.? left facial palsy Neck supple no JVD. CVS? regular rate rhythm, Respiratory lungs?few bilateral basilar rhonchi, no respiratory distress, no wheeze. Gastrointestinal abdomen soft, nontender, bowel sounds audible, no guarding , no rigidity. Extremities no edema. Neuro moving all 4 extremity speech clear. psych appropriate affect DS: Data Data Completed and Pending Labs on day of discharge: Laboratory Results - last 24 hr 01/27/22 06:24 WBC 4.8 RBC 3.47 L Hgb 9.3 L Hct 29.3 L MCV 84.4 MCH 26.8 L MCHC 31.7 RDW 15.1 Plt Count 323 D MPV 10.4 Absolute Nucleated RBC 0.000 Nucleated RBC % (auto) 0.0 Preliminary micro results at discharge 01/24/22 14:47 Blood Culture - Preliminary Blood - Venous No growth after 48 hours. 01/24/22 14:35 Blood Culture - Preliminary Blood - Venous No growth after 48 hours. Discharge Plan Discharge Anticipated Discharge Date/Time: 01/27/22 12:01 Patient Disposition: Home, Self-Care Discharge Diagnosis: Sepsis due to pneumonia COVID-19 infection Acute anemia due to infection Moderate malnutrition Referrals: Sangeetha Sage MD [Primary Care Provider] - 1 Week Discharge Medications: New lisinopril 10 mg tablet 10 mg PO DAILY Qty: 30 0RF dextromethorphan-guaifenesin 10-100 mg/5 mL Syrup 10 ml PO TID PRN (Reason: cough) Qty: 237 0RF Rx Instructions: take cough syp as needed cefuroxime axetil 500 mg tablet 500 mg PO Q12H Qty: 4 0RF Continued nystatin 100,000 unit/gram ointment 1 appl topical BID PRN (Reason: Rash) Rx Instructions: Apply to rash under breasts twice a day for 2 weeks atorvastatin 20 mg tablet 20 mg PO DAILY levothyroxine 88 mcg tablet 88 mcg PO DAILY@0630 omega-3 fatty acids 1,000 mg capsule 1,000 mg PO DAILY alendronate 70 mg tablet 70 mg PO CHRISTENSEN@0630 atenolol 50 mg tablet 50 mg PO DAILY aspirin [Adult Low Dose Aspirin] 81 mg tablet,delayed release (DR/EC) 81 mg PO DAILY calcium carbonate [Oyster Shell Calcium] 500 mg calcium (1,250 mg) tablet 500 mg PO DAILY cholecalciferol (vitamin D3) 1,250 mcg (50,000 unit) capsule 1,250 mcg PO CHRISTENSEN@0900 Discontinued ibuprofen 600 mg tablet 600 mg PO Q8H PRN (Reason: Pain (Scale Score 1-3)) lisinopril 20 mg tablet 20 mg PO DAILY Discharge Orders: Discharge Order (Routine); Ordered 01/27/22 Ordered By: Wilfrid Champagne Diet: Advance to usual diet Activity on Discharge: As tolerated Stand Alone Forms: Patient Portal Discharge page Care Plan Goals: COVID-19 infection wear mask while you have cough, rest plenty of fluids take Ensure can 1 tablet twice daily, cough medication as needed take Ceftin 1 tablet twice daily for 2 more days Health Concerns: Continue all home medication as before, dose of lisinopril reduced to 10 mg due to soft blood pressure Plan of Treatment: Outpatient follow-up with primary care physician Assessment: As above
--- NOTE | 2022-01-27 13:36 | PC.NURSE ---
Pt d/c with services, Pt denies cp, sob, dizziness. Pt vital WNL. Pt ambulated with W/C accompany with the primary healthcare advisory services manager. Pt iv was taken out. Pt took all her belonging.
== END 2022-01-27 13:13 | disposition home or self-care (01) | DRG 871 ==
LOC: HO.ED 16:39 → HO.EDOVER 18:22 → HO.IMC 19:26
PROVIDERS: Nurse Practitioner Family; Admitting Provider Hospitalist; Emergency Provider Emergency Medicine; PCP Internal Medicine; Visit Provider Hospitalist
DX: A41.9 Sepsis, unspecified organism (principal); J18.9 Pneumonia, unspecified organism; U07.1 COVID-19; Z68.1 Body mass index [BMI] 19.9 or less, adult; E44.0 Moderate protein-calorie malnutrition; Z66 Do not resuscitate; E03.9 Hypothyroidism, unspecified; D64.9 Anemia, unspecified; F32.9 Major depressive disorder, single episode, unspecified; G51.0 Bell's palsy; E11.9 Type 2 diabetes mellitus without complications; M81.0 Age-related osteoporosis without current pathological fracture; K21.9 Gastro-esophageal reflux disease without esophagitis; R62.7 Adult failure to thrive; Z86.73 Personal history of transient ischemic attack (TIA), and cerebral infarction without residual deficits; Z87.891 Personal history of nicotine dependence; Z88.8 Allergy status to other drugs, medicaments and biological substances; Z79.82 Long term (current) use of aspirin; Z79.890 Hormone replacement therapy; Z79.899 Other long term (current) drug therapy
CPT/HCPCS: 0241U; 36415; 71046; 80048; 80076; 82803; 83605; 83735; 83880; 84443; 84484; 85025; 85027; 85610; 87040; 93005; 94640; 99285; J0456; J0696; J1650; J2543

== ENCOUNTER 2022-03-23 15:07 | Inpatient (IN) | payer MEDICARE, MEDICAID, SELFPAY ==
--- NOTE | ~2022-03-23 | US_ITS ---
EXAMINATION: CLINICAL INFORMATION: COMPARISON: None TECHNIQUE: FINDINGS: US/US pelvic ovarian doppler IMPRESSION:
--- NOTE | ~2022-03-23 | CT_ITS ---
EXAMINATION: CT ABDOMEN AND PELVIS WITH CONTRAST CLINICAL INFORMATION: Lower abdominal pain and vomiting COMPARISON: CT abdomen pelvis 03/15/2017 TECHNIQUE: Multidetector volumetric images were obtained from the superior aspect of the liver through the pubic symphysis following administration 85 mL of Omnipaque 350 intravenous contrast. Sagittal and coronal reformatted images were obtained on the technologist's workstation. Oral contrast: No This CT examination was performed using dose optimization techniques as appropriate, variously including the following: *Automated exposure control *Adjustment of mA and/or kV according to patient size (this includes techniques or standardized protocols for targeted exams where dose is matched to indication/reason for exam; i.e. extremities or head) *Use of iterative reconstruction technique DLP: 387 mGy-cm FINDINGS: LUNG BASES: Minimal bibasilar subsegmental atelectasis. LIVER, GALLBLADDER, AND BILIARY TREE: Couple small subcentimeter hypodense lesions in the right liver lobe, too small to characterize likely tiny cysts. No other liver lesions. Normal hepatic attenuation. No biliary ductal dilation. Layering sludge or small stones in the gallbladder. No gallbladder wall thickening or pericholecystic inflammatory change. PANCREAS: Unremarkable. SPLEEN: Unremarkable. ADRENAL GLANDS: Unremarkable. KIDNEYS AND URETERS: Symmetric nephrograms. No renal calculi or hydronephrosis. Subcentimeter hypodense bilateral renal lesions, too small to characterize and likely represent benign cysts. No imaging follow-up recommended. BLADDER: Unremarkable. GASTROINTESTINAL TRACT: Small to moderate-sized hiatal hernia. Multiple dilated loops of small bowel measuring up to 3.2 cm in diameter. There is decompression of the more distal small bowel/ileum. Appearance is consistent with a small bowel obstruction. Possible transition point in the central abdomen on coronal image 38, axial image 45. No additional dilated bowel loops. No bowel wall thickening. Sigmoid diverticulosis. No evidence of acute diverticulitis. Small to moderate amount of formed stool seen throughout the colon. Appendix not discretely visualized. No inflammatory change the base of the cecum. No pneumatosis or free air. Trace perihepatic ascites. ABDOMINAL WALL: Prior mesh ventral abdominal wall hernia repair. LYMPH NODES: No lymphadenopathy. VASCULAR: Moderate vascular calcifications. Normal caliber abdominal aorta. PELVIC VISCERA: Large 8.4 x 6.2 cm left adnexal cysts with a couple small mural calcifications, previously 7.6 x 5.7 cm in 2018. OSSEOUS STRUCTURES: Healed left pubic rami fractures chronic lower lateral right rib fracture deformities. No acute fracture or suspicious osseous lesion. Disc degenerative change most advanced at L4-L5. Lower lumbar facet arthrosis. CT/CT abdomen pelvis w IV con IMPRESSION: 1. Findings compatible with a small bowel obstruction with possible transition point in the central abdomen, as above. No bowel wall thickening or evidence of perforation. 2. Trace perihepatic ascites. 3. Large 8.4 cm left adnexal cyst, mildly increased in size since 2018. Concern for possible low-grade cystic neoplasm. Consider [employer]GER [employer]ING consultation for further management. 4. Additional chronic findings, as described. Fleischner guidelines were followed.
--- NOTE | ~2022-03-23 | XR_ITS ---
EXAMINATION: XR CHEST CLINICAL INFORMATION: Shortness of breath. COMPARISON: 01/24/2022 chest radiographs. TECHNIQUE: Frontal view of the chest was obtained. FINDINGS: The lungs are clear. There are no effusions. The heart and mediastinal structures are unremarkable as a moderate-sized hiatal hernia. Degenerative changes in the right shoulder without significant change. XR/XR chest 1V IMPRESSION: 1. No acute cardiopulmonary process. 2. Moderate hiatal hernia.
--- NOTE | ~2022-03-23 | US_ITS ---
EXAMINATION: US PELVIS CLINICAL INFORMATION: Ovarian cyst COMPARISON: CT examination performed yesterday TECHNIQUE: Ultrasound of the pelvis is performed using both transabdominal and transvaginal transducers along with Doppler. Transvaginal imaging is performed due to inadequate visualization transabdominally. FINDINGS: Uterus: Uterine dimensions 6.8 x 2.9 x 3.0 cm. There is a complex hypoechoic lesion in the cervix measuring 1.4 x 1.2 x 1.7 cm which may reflect a nodule or potentially a complex nabothian cyst. The double wall endometrial thickness is 0.7 mm. The uterus is smooth in contour and has normal myometrial echogenicity. No visible fibroid. Adnexa: Right ovary is not seen. Left ovary measures 9.5 x 7.5 cm. Volume 272 mL. There is a left adnexal cyst with internal low-level echoes at 8.4 x 7.1 x 6.4 cm. Arterial and venous flow observed. US/US pelvic and transvaginal IMPRESSION: Left adnexal cyst, appearing mildly complex, which by CT is mildly larger in size since the evaluation of 2018. SET UP AND CHARGER evaluation recommended. Complex hypoechoic lesion in the cervix could potentially reflect a nodule or complex nabothian cyst. Endometrial stripe thickness 0.7 mm, thickened for a patient of this age. SET UP AND CHARGER evaluation and sampling may be helpful toward clarification. MR examination of the pelvis without and with IV contrast enhancement may be helpful toward further clarification.
[2022-03-23 15:13] VITALS: BP 120/76; BP 141/83; PULSE 102; PULSE 95; RESP 20; TEMP 36.6; O2SAT 95; O2SAT 97; BMI 19.5
--- NOTE | 2022-03-23 15:48 | ECG_ITS ---
Test Reason : ABDOMINAL PAIN Blood Pressure : / mmHG Vent. Rate : 089 BPM Atrial Rate : 089 BPM P-R Int : 160 ms QRS Dur : 116 ms QT Int : 398 ms P-R-T Axes : 042 -35 -23 degrees QTc Int : 484 ms Normal sinus rhythm Left axis deviation Incomplete right bundle branch block ST & T wave abnormality, consider anterior ischemia Prolonged QT Abnormal ECG When compared with ECG of 24-JAN-2022 14:20, No significant change was found Referred By: Allison Crawford Electronically Signed By:RODOLFO ACOSTA MD
[2022-03-23] MEDS: ondansetron HCL 4 MG/2 ML VIAL IVPUSH (16:15)
--- NOTE | 2022-03-23 16:18 | ED_ITS ---
HPI - Nausea/Vomiting/Diarrhea General Chief complaint: Nausea/Vomiting/Diarrhea Stated complaint: N/V, poss dehydrated, abd pain per EMS Time Seen by Provider: 03/23/22 15:24 Source: patient and EMS Mode of arrival: EMS History of Present Illness HPI Narrative: 77-year-old female with a past medical history of GERD, HTN, hypothyroid, int ellectual disability, MDD, diabetes, osteoporosis, CVA, presenting to the ED complaining of lower abdominal pain, nausea, vomiting, and feeling dehydrated x today. Patient reports vomiting brown liquid. Also reports mild SOB. Denies known fever, chills, CP, melena, hematochezia, dysuria/hematuria. Patient was recently discharged from our facility on 01/27/2022 for COVID-19/pneumonia. MD elicited complaint: nausea, vomiting and abdominal pain Related Data Home Medications Medication Instructions Recorded Confirmed alendronate 70 mg tablet 70 mg PO CHRISTENSEN@0630 10/13/21 03/23/22 aspirin 81 mg tablet,delayed 81 mg PO DAILY 10/13/21 03/23/22 release (Adult Low Dose Aspirin) atenolol 50 mg tablet 50 mg PO DAILY 10/13/21 03/23/22 atorvastatin 20 mg tablet 20 mg PO DAILY 10/13/21 03/23/22 calcium carbonate 500 mg calcium 500 mg PO DAILY 10/13/21 03/23/22 (1,250 mg) tablet (Oyster Shell Calcium) levothyroxine 88 mcg tablet 88 mcg PO DAILY@0600 10/13/21 03/23/22 omega-3 fatty acids 1,000 mg 1,000 mg PO DAILY 10/13/21 03/23/22 capsule cholecalciferol (vitamin D3) 1,250 1,250 mcg PO CHRISTENSEN@0900 12/22/21 03/23/22 mcg (50,000 unit) capsule nystatin 100,000 unit/gram topical 1 appl topical BID PRN Rash 01/24/22 03/23/22 ointment cholecalciferol (vitamin D3) 50 50 mcg PO DAILY 03/23/22 03/23/22 mcg (2,000 unit) tablet lisinopril 20 mg tablet 1 tab PO DAILY 03/23/22 03/23/22 Allergies Allergy/AdvReac Type Severity Reaction Status Date / Time propoxyphene [From Darvon] Allergy Mild UNKNOWN Verified 01/24/22 13:41 metformin [Metformin] AdvReac Mild DIARRHEA, Verified 01/24/22 13:41 RASH Review of Systems Review of Systems: Constitutional: No Fever, No Chills, No Fatigue, No Malaise ENT/Mouth: No Ear Pain, No Nasal Congestion, No sore throat, No Rhinorrhea, No Swallowing Difficulty Eyes: No Eye Pain, No Swelling, No Redness, No Foreign Body, No Discharge, No Vision Changes Cardiovascular: No Chest Pain, + SOB, No Edema, No Palpitations Respiratory: No Cough, No Sputum, No Wheezing, No Smoke Exposure, No Dyspnea Gastrointestinal: + Nausea, + Vomiting, No Diarrhea, No Constipation, + Abdominal pain, No Hematochezia, No Melena Genitourinary: No Dysuria, No Hematuria, No Urinary Incontinence/retention, No Flank Pain Musculoskeletal: No joint pain, No Myalgias, No Joint Swelling Skin: No Skin Lesions, No rash Neuro: No Weakness, No Dizziness, No Headache Yes all other systems are reviewed and are negative Constitutional: Constitutional: Reports as per [facility] Past Medical History Attestation statement: The following information was validated with the patient. 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.) Alcohol intake: never Patient Tobacco Use Status: Former Tobacco user Quit Date: 10+ years ago Tobacco use type: Cigarette Smoked in Last 30 Days: No Second Hand Smoke Exposure: No Use of substances other than those prescribed or required for medical reasons: No Advance Directives: No Advance Directives Information Provided: Yes service: No Current occupational status: retired and disabled Physical Exam Vital Signs: Vital Signs: Last Vital Signs Temp 97.8 F 03/23/22 19:42 Pulse 92 03/23/22 19:42 Resp 16 03/23/22 19:42 BP 123/85 03/23/22 19:42 Pulse Ox 95 03/23/22 19:42 O2 Del Method 03/23/22 19:42 BMI result Body Mass Index 19.5 Const: General: cooperative, healthy appearing and no acute distress Orientation/consciousness: patient oriented x3 Limitations: no limitations HEENT: Head: Yes normal to inspection and Yes atraumatic Ears: hearing grossly normal bilaterally General nose exam: Normal external nose present Face and sinus: Yes normal facial exam Eyes: General: appearance normal, both eyes and all related structures EOM: EOMs intact bilaterally Neck: Neck: Yes normal visual inspection and Yes no meningeal signs Resp: Effort & Inspection: normal respiratory effort and no respiratory distress Auscultation: clear to auscultation bilaterally, no rhonchi and no wheezes Cardio: Rate: regular rate Heart sounds: S1 normal heart sound present and S2 normal heart sound present GI: Inspection: Yes normal to inspection Palpation (GI): Soft to palpation, Tenderness to palpation present (GI) (Diffusely) with no rebound tenderness, no guarding and not rigid : General: Yes no CVA tenderness Back/Spine/Pelvis: Back: no CVA tenderness Skin: Rashes: no rashes Wounds: no wounds Neuro: General: patient oriented x3, tone normal and no meningeal signs Gait exam (Neuro): Normal gait present Extrem: General: Yes normal to inspection, Yes no pedal edema and Yes no calf tenderness Course Course Course Narrative: -1711--mild leukocytosis at 12.5. H&H stable. Potassium mildly elevated to 5.2. BUN of 19 -occult stool positive XR chest 1V IMPRESSION: 1.? No acute cardiopulmonary process. 2.? Moderate hiatal hernia. -1746--CT abdomen pelvis w IV con IMPRESSION: 1.? Findings compatible with a small bowel obstruction with possible transition point in the central abdomen, as above. No bowel wall thickening or evidence of perforation. 2.? Trace perihepatic ascites. 3.? Large 8.4 cm left adnexal cyst, mildly increased in size since 2018. Concern for possible low-grade cystic neoplasm. Consider CARE MANAGEMENT COORDINATOR consultation for further management. 4.? Additional chronic findings, as described. ? Fleischner guidelines were followed. >> will consult General surgery, Dr. Carvajal -spoke with Dr. Carvajal who recommends hospitalist admission and surgical consult, she will evaluate patient in the ED Medications Administered Generic Name Dose Route Start Last Admin Trade Name Freq PRN Reason Stop Dose Admin Enoxaparin Sodium 40 mg 03/23/22 21:00 03/23/22 20:16 Enoxaparin Sodium 40 Mg/0.4 Ml Syringe SUBCUT 40 mg Q24H RADHA Administration Sodium Chloride 1,000 mls @ 80 mls/hr 03/23/22 20:00 03/23/22 20:10 Ns IVCONT 80 mls/hr .[id number] RADHA Administration Discontinued Medications Generic Name Dose Route Start Last Admin Trade Name Freq PRN Reason Stop Dose Admin Sodium Chloride 500 mls @ 999 mls/hr 03/23/22 16:30 03/23/22 19:15 Ns IV 03/23/22 17:00 Infused .Q31M RADHA Infusion Iohexol 100 ml 03/23/22 17:01 03/23/22 17:01 Iohexol 350 Mg/Ml 100 Ml Infus..Btl IV 03/23/22 17:02 85 ml ONCE ONE Administration Ondansetron HCl 4 mg 03/23/22 15:48 03/23/22 16:15 Ondansetron Hcl 4 Mg/2 Ml Vial IVPUSH 03/23/22 15:49 4 mg ONCE ONE Administration Sodium Biphosphate/Sodium Phosphate 133 ml 03/23/22 20:03 03/23/22 20:16 Sodium Phosphate,Brown-Dibasic 133 Ml Enema ID 03/23/22 20:04 133 ml ONCE ONE Administration Medical Decision Making Medical Decision Making MDM Narrative: 77-year-old female with a past medical history of GERD, HTN, hypothyroid, intellectual disability, MDD, diabetes, osteoporosis, CVA, presenting to the ED complaining of lower abdominal pain, nausea, vomiting, and feeling dehydrated x today. On exam vital signs stable, NAD, nontoxic appearing, abdomen soft diffusely tender, no rebound or guarding. Brownish/maroon stool noted on rectal. Concern for SBO vs diverticulitis vs appendicitis vs GI bleed. Rule out other infectious etiology including UTI. Lower suspicion for cholecystitis/lithiasis or ACS at this time Plan: EKG, labs, UA, CXR, CT AP, occult stool, IVF, re-evaluate Please refer to course for remaining clinical decision making, interpretation of labs/imaging results, and discussions with consultants and/or family members. Differential Diagnosis Differential Diagnoses: The differential diagnosis associated with the presentation includes As above Admission/Observation Consideration of admission/observation: Escalation of care including admission/observation considered Consult Healthcare Provider Management of the patient was discussed with: Package Dyer (General surgery) Lab Data MDM Lab Attestation statement: I reviewed the patient's lab results. 03/23/22 16:11 03/23/22 16:10 Labs: Lab Results 03/23/22 03/23/22 03/23/22 Range/Units 16:02 16:10 16:10 WBC (4.8-10.8) X10*3/uL RBC (4.20-5.50) X10*6/uL Hgb (12.0-16.0) g/dl Hct (37.0-47.0) % MCV (80.0-98.0) fL MCH (27.0-33.0) pg MCHC (31.0-35.0) g/dl RDW (11.0-16.0) % Plt Count (160-400) X10*3/uL MPV (9.4-12.3) fL Immature Gran % (Auto) (0.0-0.4) % Neut % (Auto) (45-73) % Lymph % (Auto) (20-40) % Brown % (Auto) (2-11) % Eos % (Auto) (0-4) % Baso % (Auto) (0-2) % Lymph # (Auto) (1.2-4.9) X10*3/uL Brown # (Auto) (0.1-1.2) X10*3/uL Eos # (Auto) (0.0-0.4) X10*3/uL Baso # (Auto) (0.0-0.2) X10*3/uL Abs Immat Gran (auto) (0.00-0.03) X10*3/uL Absolute Neuts (auto) (2.0-8.3) x10*3/uL Absolute Nucleated RBC (0.0-0.012) X10*3/uL Nucleated RBC % (auto) (0.0-0.2) /100WBC PT (10.0-13.1) SEC INR (0.9-1.1) Sodium 141 (135-145) mmol/L Potassium 5.2 H D (3.3-5.1) mmol/L Chloride 106 (96-108) mmol/L Carbon Dioxide 22 (22-29) mmol/L Anion Gap 18 (12-20) BUN 19 H (9-16) mg/dL Creatinine 0.61 (0.5-1.4) mg/dL Estim Creat Clear Calc 59.8 Estimated GFR > 60 Random Glucose 160 H (60-115) mg/dL Calcium 10.2 D (8.4-10.2) mg/dL Magnesium 2.1 (1.6-2.6) mg/dL Total Bilirubin 1.0 (0.0-1.0) mg/dL Direct Bilirubin 0.2 (0.0-0.5) mg/dL AST 26 (5-31) U/L ALT 16 (0-31) U/L Alkaline Phosphatase 73 (39-117) U/L Troponin I High Sens < 3.5 (<3.5-17.0) ng/L Total Protein 6.8 (6.5-8.0) g/dL Albumin 4.3 (3.5-5.0) g/dL Lipase 27 (8-78) U/L Stool Occult Blood POSITIVE (NEGATIVE) Influenza Type A (PCR) (Negative) Influenza Type B (PCR) (Negative) RSV RNA Qual (PCR) (Negative) SARS-CoV-2 RNA (RT-PCR) (Negative) 03/23/22 03/23/22 03/23/22 Range/Units 16:10 16:10 16:11 WBC 12.5 H (4.8-10.8) X10*3/uL RBC 5.13 D (4.20-5.50) X10*6/uL Hgb 12.4 D (12.0-16.0) g/dl Hct 39.5 D (37.0-47.0) % MCV 77.0 L (80.0-98.0) fL MCH 24.2 L (27.0-33.0) pg MCHC 31.4 (31.0-35.0) g/dl RDW 16.1 H (11.0-16.0) % Plt Count 299 (160-400) X10*3/uL MPV 10.0 (9.4-12.3) fL Immature Gran % (Auto) 0.3 (0.0-0.4) % Neut % (Auto) 87.6 H (45-73) % Lymph % (Auto) 7.1 L (20-40) % Brown % (Auto) 3.6 (2-11) % Eos % (Auto) 1.3 (0-4) % Baso % (Auto) 0.1 (0-2) % Lymph # (Auto) 0.9 L (1.2-4.9) X10*3/uL Brown # (Auto) 0.5 (0.1-1.2) X10*3/uL Eos # (Auto) 0.2 (0.0-0.4) X10*3/uL Baso # (Auto) 0.0 (0.0-0.2) X10*3/uL Abs Immat Gran (auto) 0.04 H (0.00-0.03) X10*3/uL Absolute Neuts (auto) 11.0 H (2.0-8.3) x10*3/uL Absolute Nucleated RBC 0.000 (0.0-0.012) X10*3/uL Nucleated RBC % (auto) 0.0 (0.0-0.2) /100WBC PT 11.1 (10.0-13.1) SEC INR 1.0 (0.9-1.1) Sodium (135-145) mmol/L Potassium (3.3-5.1) mmol/L Chloride (96-108) mmol/L Carbon Dioxide (22-29) mmol/L Anion Gap (12-20) BUN (9-16) mg/dL Creatinine (0.5-1.4) mg/dL Estim Creat Clear Calc Estimated GFR Random Glucose (60-115) mg/dL Calcium (8.4-10.2) mg/dL Magnesium (1.6-2.6) mg/dL Total Bilirubin (0.0-1.0) mg/dL Direct Bilirubin (0.0-0.5) mg/dL AST (5-31) U/L ALT (0-31) U/L Alkaline Phosphatase (39-117) U/L Troponin I High Sens (<3.5-17.0) ng/L Total Protein (6.5-8.0) g/dL Albumin (3.5-5.0) g/dL Lipase (8-78) U/L Stool Occult Blood (NEGATIVE) Influenza Type A (PCR) NEGATIVE (Negative) Influenza Type B (PCR) NEGATIVE (Negative) RSV RNA Qual (PCR) NEGATIVE (Negative) SARS-CoV-2 RNA (RT-PCR) NEGATIVE (Negative) Independent Interpretation I performed an independent interpretation of an: EKG Interpretation: My interpretation EKG normal sinus rhythm at a rate of 89. ID interval 160. QTC 484. No STEMI. No significant change when compared to priors Radiology Impression Discussion of test interpretation with radiology: I have reviewed the radiologist's reading. External Record Review External record reviewed: Outpatient record, Prior outpatient labs and Prior outpatient radiology Social Determinants Patient?s care significantly limited by Social Determinants of Health including: Other Social Determinant of Health Critical Care Time Critical Care Time Critical Care Time: Yes Total Critical Care Time: 35 Attestation: I have personally provided critical care time exclusive of time spent on separately billable procedures. Time includes review of lab data, radiology results, discussion with consultants, and monitoring for potential decompensation. Intervention performed as documented. Discharge Plan Discharge Clinical Impression: Small bowel obstruction, Occult GI bleeding, Adnexal mass Patient Disposition: Admitted As Inpatient
[2022-03-23 16:19] LABS: MANUAL DIFF FLAG NO
[2022-03-23 16:20] LABS: Basophils Percent Auto 0.1 % (0-2); Eosinophils Absolute Auto 0.2 X10*3/uL (0.0-0.4); Eosinophils Percent Auto 1.3 % (0-4); Hematocrit 39.5 % (37.0-47.0); Hemoglobin 12.4 g/dl (12.0-16.0); Imm Gran Abs Auto 0.04 X10*3/uL (0.00-0.03); Imm Gran Pct Auto 0.3 % (0.0-0.4); Lymphocytes Absolute Auto 0.9 X10*3/uL (1.2-4.9); Lymphocytes Percent Auto 7.1 % (20-40); Mean Corpuscular HGB Conc 31.4 g/dl (31.0-35.0); Mean Corpuscular Hemoglobin 24.2 pg (27.0-33.0); Monocytes Absolute Auto 0.5 X10*3/uL (0.1-1.2); Monocytes Percent Auto 3.6 % (2-11); Neutrophils Percent Auto 87.6 % (45-73); Platelet Count 299 X10*3/uL (160-400); Red Blood Count 5.13 X10*6/uL (4.20-5.50); Red Cell Distribution Width 16.1 % (11.0-16.0); White Blood Count 12.5 X10*3/uL (4.8-10.8)
[2022-03-23 16:20] LABS: OBS Int Ctl Valid YES; OBS1 POSITIVE (NEGATIVE)
[2022-03-23] MEDS: 0.9 % Sodium Chloride 500 ML 999 ML IV (16:21)
[2022-03-23 16:26] LABS: Prothrombin Time 11.1 SEC (10.0-13.1)
[2022-03-23 16:38] LABS: Alanine Aminotransferase 16 U/L (0-31); Albumin Level 4.3 g/dL (3.5-5.0); Alkaline Phosphatase 73 U/L (39-117); Anion Gap 18 (12-20); Aspartate Amino Transferase 26 U/L (5-31); Bilirubin Direct 0.2 mg/dL (0.0-0.5); Blood Urea Nitrogen 19 mg/dL (9-16); Calcium 10.2 mg/dL (8.4-10.2); Carbon Dioxide 22 mmol/L (22-29); Chloride 106 mmol/L (96-108); Creatinine Clr Calc Pharmacy 59.8; Estimated Glomerular Filt Rate > 60; Glucose Random 160 mg/dL (60-115); Lipase 27 U/L (8-78); Magnesium 2.1 mg/dL (1.6-2.6); Potassium 5.2 mmol/L (3.3-5.1); Sodium 141 mmol/L (135-145); Total Protein 6.8 g/dL (6.5-8.0)
[2022-03-23 16:46] LABS: Troponin-I High Sensitivity < 3.5 ng/L (<3.5-17.0)
[2022-03-23 16:55] LABS: Influenza A PCR NEGATIVE (Negative); Influenza B PCR NEGATIVE (Negative); Resp Syncy Virus RNA Qual PCR NEGATIVE (Negative); SARS COV2 PCR INHOUSE NEGATIVE (Negative)
[2022-03-23] MEDS: iohexoL 350 MG/ML 100 ML INFUS..BTL IV (17:01)
[2022-03-23 19:42] VITALS: BP 123/85; PULSE 92; RESP 16; TEMP 36.6; O2SAT 95
--- NOTE | 2022-03-23 20:06 | P.HPGS_ITS ---
History of Present Illness History of Present Illness Date of Service: 03/23/22 Chief complaint: Bowel Obstruction Narrative: Briseida Reich is a 77 year old female Who has had some type of small bowel surgery in the past and came in because earlier today she vomited she says almost a gal of liquid brown material. She has been feeling abdominal pain and cramping in addition. She says she has had an episode like this before ever since her small bowel resection it seems surgery. She says that initial surgery was over 20 years ago. She was recently here towards the end of last year and treated for A variety of medical issues including being COVID positive. She is hypothyroid it hypertensive. She says she had a bowel movement earlier today. She says normally she has trouble having bowel movements and in the past she has needed to be disimpacted. Hair her white count was a little elevated and a CT scan of her abdomen and pelvis showed lot of stool material throughout her colon and dilated small bowel loop with questionable transition point in her mid abdomen. In addition it is noted that she has a large left adnexal. mass which is gotten larger. She says that she is aware of this and had hoped that it would have been taken care of years ago. she says she has lost about 40-50 lb over the last several months to a year or two. Review of Systems Constitutional: Constitutional: Reports anorexia, Reports fatigue, Reports poor appetite and Reports weight loss Cardiovascular: Cardiovascular: Reports no additional cardiovascular complaints Respiratory: Respiratory: Reports no additional respiratory complaints Gastrointestinal: Gastrointestinal: Reports as per HPI Endocrine: Endocrine: Reports fatigue PMFSH Past Medical History Medical History Adult failure to thrive GERD (gastroesophageal reflux disease) Hernia High blood pressure Hypothyroidism Intellectual disability Ischemic stroke Major depressive disorder Osteoporosis Type 2 diabetes mellitus Surgical History Surgical History History of rectal surgery Social History Social History Household Members: None Housing: Other Housing Other:: hotel Do you presently have visiting nurse or other home services: Yes (manager center's 10 hours per week.) Alcohol intake: never Patient Tobacco Use Status: Former Tobacco user Quit Date: 10+ years ago Tobacco use type: Cigarette Smoked in Last 30 Days: No Second Hand Smoke Exposure: No Use of substances other than those prescribed or required for medical reasons: No Advance Directives: No Advance Directives Information Provided: Yes service: No Current occupational status: retired and disabled Meds Allergies Allergy/AdvReac Type Severity Reaction Status Date / Time propoxyphene [From Darvon] Allergy Mild UNKNOWN Verified 01/24/22 13:41 metformin [Metformin] AdvReac Mild DIARRHEA, Verified 01/24/22 13:41 RASH Active Medications: Current Medications Enoxaparin Sodium (Enoxaparin Sodium 40 Mg/0.4 Ml Syringe) 40 mg SUBCUT Q24H RADHA Famotidine (Famotidine/Pf 20 Mg/2 Ml Vial) 20 mg IVPUSH BID@0800,1800 RADHA Hydromorphone HCl (Hydromorphone Hcl 1 Mg/Ml Syringe) 0.5 mg IVPUSH Q4H PRN; Protocol PRN Reason: Pain, Severe (Pain Scale 7-10) Sodium Chloride (Ns) 1,000 mls @ 80 mls/hr IVCONT .[id number] RADHA Ondansetron HCl (Ondansetron Hcl 4 Mg/2 Ml Vial) 4 mg IVPUSH Q8H PRN PRN Reason: Nausea and Vomiting Sodium Chloride (0.9 % Sodium Chloride Flush 3 Ml Syringe) 3 ml IVFLUSH QSHIFT RADHA Home Medications Medication Instructions Recorded Confirmed Last Taken Type alendronate 70 mg tablet 70 mg PO CHRISTENSEN@0630 10/13/21 01/24/22 Unknown History aspirin 81 mg tablet,delayed 81 mg PO DAILY 10/13/21 01/24/22 Unknown History release (Adult Low Dose Aspirin) atenolol 50 mg tablet 50 mg PO DAILY 10/13/21 01/24/22 Unknown History atorvastatin 20 mg tablet 20 mg PO DAILY 10/13/21 01/24/22 Unknown History calcium carbonate 500 mg calcium 500 mg PO DAILY 10/13/21 01/24/22 Unknown History (1,250 mg) tablet (Oyster Shell Calcium) levothyroxine 88 mcg tablet 88 mcg PO DAILY@0630 10/13/21 01/24/22 Unknown History omega-3 fatty acids 1,000 mg 1,000 mg PO DAILY 10/13/21 01/24/22 Unknown History capsule cholecalciferol (vitamin D3) 1,250 1,250 mcg PO CHRISTENSEN@0900 12/22/21 01/24/22 Unknown History mcg (50,000 unit) capsule nystatin 100,000 unit/gram topical 1 appl topical BID PRN Rash 01/24/22 01/24/22 Unknown History ointment Physical Exam Vital Signs: Vital Signs: Last Vital Signs Temp 97.8 F 03/23/22 19:42 Pulse 92 03/23/22 19:42 Resp 16 03/23/22 19:42 BP 123/85 03/23/22 19:42 Pulse Ox 95 03/23/22 19:42 O2 Del Method 03/23/22 19:42 BMI result Body Mass Index 19.5 Const: General: cooperative, no acute distress and tired appearing Nutritional Appearance: thin Orientation/consciousness: oriented to person, oriented to place and oriented to time HEENT: Head: Yes normal to inspection Neck: Neck: Yes normal visual inspection Resp: Effort & Inspection: normal respiratory effort Auscultation: clear to auscultation bilaterally Cardio: Rate: regular rate Rhythm: regular rhythm GI: Other: abdomen is soft mild distension tender mainly in the lower abdomen bilaterally maybe left side worse than right she does have a little fullness on the left lower quadrant area she actually has active bowel sounds. Small midline incision around the umbilical area no hernias noted Skin: General skin exam: no rashes or lesions noted Neuro: General: oriented to person, oriented to place and oriented to time Extrem: General: Yes normal to inspection Psych: Appearance: grossly normal Results Results Labs: Short CBC 03/23/22 Range/Units 16:11 WBC 12.5 H (4.8-10.8) X10*3/uL Hgb 12.4 D (12.0-16.0) g/dl Hct 39.5 D (37.0-47.0) % Plt Count 299 (160-400) X10*3/uL BMP 03/23/22 16:10 Sodium 141 Potassium 5.2 H D Chloride 106 Carbon Dioxide 22 BUN 19 H Creatinine 0.61 Calcium 10.2 D Liver Function 03/23/22 Range/Units 16:10 Total Bilirubin 1.0 (0.0-1.0) mg/dL Direct Bilirubin 0.2 (0.0-0.5) mg/dL AST 26 (5-31) U/L ALT 16 (0-31) U/L Alkaline Phosphatase 73 (39-117) U/L Albumin 4.3 (3.5-5.0) g/dL Abdomen CT scan report/results: report reviewed and image reviewed CT scan - pelvis: report reviewed and image reviewed Assessment and Plan (1) Small bowel obstruction: Status: Acute Plan 77-year-old female admitted with most likely partial small bowel obstruction most likely from adhesions from her past surgery although uncertain what that surgery actually was. She also has a large left adnexal mass which we have known about and which has gotten larger. At this point she is not nauseated her stomach by CT scan is not very distended more enlarged nor is her abdominal exam and she does have bowel sounds. Will hold off on placing an NG tube unless she vomits again. In addition continue with NPO few ice chips IV hydration and re-evaluation tomorrow with blood work and consider another x-ray. We will try to mobilize some stool by doing a Fleet enema which will hopefully have results. In addition medical consult is being carried out to help treat her medical issues. Will also get cytotechnologist/cytology supervisor consult tomorrow to come up with a plan for this left ovarian mass which is really quite sizable and most likely should come out especially as the risk of malignancy is moderate. Patient understands and agrees with the above plan Time Spent With Patient Time: Total time managing care of this patient today ____ minutes. Quality Stroke Does the patient have a stroke diagnosis?: No VTE Prior VTE?: No VTE Risk Level:: Surgical - moderate VTE Device Contraindication: N/A - Device Ordered VTE Drug Contraindication: N/A - Med Ordered Procedures Date of Service Date of Service: 03/23/22
[2022-03-23] MEDS: 0.9 % Sodium Chloride 1,000 ML 80 ML IVCONT (20:10)
[2022-03-23] MEDS: Enoxaparin Sodium 40 MG/0.4 ML SYRINGE SUBCUT (20:16)
[2022-03-23] MEDS: Sodium Phosphate,Mono-Dibasic 133 ML ENEMA PR (20:16)
--- NOTE | 2022-03-23 20:34 | P.CONHOSP_ITS ---
History of Present Illness Data of Consult Service Date: 03/23/22 Primary Care Provider: Unknown Physician HPI 77-year-old female with past medical history of GERD, hernia, hypertension, hypothyroidism, history of CVA, diet-controlled diabetes presents to the hospital with complaints of abdominal pain, nausea vomiting. Patient is alert, oriented to self and place. Able to give good history. Patient reports that she had a bowel movement in the morning of presentation, by noon 10 she started developing acute abdominal pain, had multiple episodes of nausea vomiting, on arrival of her visiting nurse, she complained and they called EMS to bring her to hospital. Patient reports no chest pain, no shortness of breath, no urinary symptoms and no lower extremity edema. No numbness tingling, no headache or change in vision. Patient admitted by surgical team, and we are consult avoid surgery for medical management. Vitals reviewed show a slightly elevated blood pressure otherwise stable Labs are significant for WBC count of 12.5, labs otherwise unremarkable Abdomen pelvic CT shows small bowel obstruction with possible transition point in the central abdomen, large a 0.4 cm left adnexal cyst, mildly increased in size concerning for possible low-grade cystic neoplasm, Review of Systems Review of Systems: Yes all other systems are reviewed and are negative [facility] Medical History (Updated 03/23/22 @ 23:13 by Urvashi Edge MD) Adult failure to thrive GERD (gastroesophageal reflux disease) Hernia High blood pressure Hypertension Hypothyroidism Intellectual disability Ischemic stroke Major depressive disorder Osteoporosis Type 2 diabetes mellitus Surgical History History of rectal surgery Social History Household Members: None Housing: Other Housing Other:: hotel Do you presently have visiting nurse or other home services: Yes ([employer] 10 hours per week.) Alcohol intake: never Patient Tobacco Use Status: Former Tobacco user Quit Date: 10+ years ago Tobacco use type: Cigarette Smoked in Last 30 Days: No Second Hand Smoke Exposure: No Use of substances other than those prescribed or required for medical reasons: No Advance Directives: No Advance Directives Information Provided: Yes service: No Current occupational status: retired and disabled Meds Allergies Allergy/AdvReac Type Severity Reaction Status Date / Time propoxyphene [From Darvon] Allergy Mild UNKNOWN Verified 01/24/22 13:41 metformin [Metformin] AdvReac Mild DIARRHEA, Verified 01/24/22 13:41 RASH Active Medications: Current Medications Enoxaparin Sodium (Enoxaparin Sodium 40 Mg/0.4 Ml Syringe) 40 mg SUBCUT Q24H [facility] Last Admin: 03/23/22 20:16 Dose: 40 mg Famotidine (Famotidine/Pf 20 Mg/2 Ml Vial) 20 mg IVPUSH BID@0800,1800 [facility] Hydromorphone HCl (Hydromorphone Hcl 1 Mg/Ml Syringe) 0.5 mg IVPUSH Q4H PRN; Protocol PRN Reason: Pain, Severe (Pain Scale 7-10) Sodium Chloride (Ns) 1,000 mls @ 80 mls/hr IVCONT .[id number] [facility] [place] Last Admin: 03/23/22 20:10 Dose: 80 mls/hr Ondansetron HCl (Ondansetron Hcl 4 Mg/2 Ml Vial) 4 mg IVPUSH Q8H PRN PRN Reason: Nausea and Vomiting Sodium Chloride (0.9 % Sodium Chloride Flush 3 Ml Syringe) 3 ml IVFLUSH QSHIFT [facility] Home Medications Medication Instructions Recorded Confirmed Last Taken Type alendronate 70 mg tablet 70 mg PO CHRISTENSEN@0630 10/13/21 03/23/22 03/20/22 History aspirin 81 mg tablet,delayed 81 mg PO DAILY 10/13/21 03/23/22 03/23/22 History release (Adult Low Dose Aspirin) atenolol 50 mg tablet 50 mg PO DAILY 10/13/21 03/23/22 03/23/22 History atorvastatin 20 mg tablet 20 mg PO DAILY 10/13/21 03/23/22 03/23/22 History calcium carbonate 500 mg calcium 500 mg PO DAILY 10/13/21 03/23/22 03/23/22 History (1,250 mg) tablet (Oyster Shell Calcium) levothyroxine 88 mcg tablet 88 mcg PO DAILY@0600 10/13/21 03/23/22 03/23/22 History omega-3 fatty acids 1,000 mg 1,000 mg PO DAILY 10/13/21 03/23/22 03/23/22 History capsule cholecalciferol (vitamin D3) 1,250 1,250 mcg PO CHRISTENSEN@0900 11/11/0403/23/22 03/20/22 History mcg (50,000 unit) capsule nystatin 100,000 unit/gram topical 1 appl topical BID PRN Rash 01/24/22 03/23/22 Unknown History ointment cholecalciferol (vitamin D3) 50 50 mcg PO DAILY 03/23/22 03/23/22 03/23/22 History mcg (2,000 unit) tablet lisinopril 20 mg tablet 1 tab PO DAILY 03/23/22 03/23/22 03/23/22 History Physical Exam Vital Signs and Narrative: Vital Signs: Last Vital Signs Temp 97.8 F 03/23/22 19:42 Pulse 92 03/23/22 19:42 Resp 16 03/23/22 19:42 BP 123/85 03/23/22 19:42 Pulse Ox 95 03/23/22 19:42 O2 Del Method 03/23/22 19:42 BMI result Body Mass Index 19.5 Const: General: cooperative and no acute distress Orientation/consciousness: patient oriented x3 Eyes: General: appearance normal, both eyes and all related structures Resp: Effort & Inspection: normal respiratory effort Auscultation: clear to auscultation bilaterally Cardio: Rate: regular rate Rhythm: regular rhythm GI: Other: Mild tenderness on deep palpation, no guarding or rebound Palpation (GI): Soft to palpation Auscultation: normal bowel sounds Skin: General skin exam: no rashes or lesions noted Neuro: General: patient oriented x3 Cognition (Neuro): normal cognition Extrem: General: Yes normal to inspection and Yes no pedal edema Results Labs 03/23/22 16:11 03/23/22 16:10 Labs: Laboratory Results - last 24 hr 03/23/22 03/23/22 03/23/22 16:02 16:10 16:10 MCV MCH MCHC RDW Plt Count MPV Immature Gran % (Auto) Neut % (Auto) Lymph % (Auto) [place] % (Auto) Eos % (Auto) Baso % (Auto) Lymph # (Auto) [place] # (Auto) Eos # (Auto) Baso # (Auto) Abs Immat Gran (auto) Absolute Neuts (auto) Absolute Nucleated RBC Nucleated RBC % (auto) PT INR Anion Gap 18 Estim Creat Clear Calc 59.8 Estimated GFR > 60 Random Glucose 160 H Calcium 10.2 D Magnesium 2.1 Total Bilirubin 1.0 Direct Bilirubin 0.2 AST 26 ALT 16 Alkaline Phosphatase 73 Troponin I High Sens < 3.5 Total Protein 6.8 Albumin 4.3 Lipase 27 Stool Occult Blood POSITIVE Influenza Type A (PCR) Influenza Type B (PCR) RSV RNA Qual (PCR) SARS-CoV-2 RNA (RT-PCR) 03/23/22 03/23/22 03/23/22 16:10 16:10 16:11 MCV 77.0 L MCH 24.2 L MCHC 31.4 RDW 16.1 H Plt Count 299 MPV 10.0 Immature Gran % (Auto) 0.3 Neut % (Auto) 87.6 H Lymph % (Auto) 7.1 L [place] % (Auto) 3.6 Eos % (Auto) 1.3 Baso % (Auto) 0.1 Lymph # (Auto) 0.9 L [place] # (Auto) 0.5 Eos # (Auto) 0.2 Baso # (Auto) 0.0 Abs Immat Gran (auto) 0.04 H Absolute Neuts (auto) 11.0 H Absolute Nucleated RBC 0.000 Nucleated RBC % (auto) 0.0 PT 11.1 INR 1.0 Anion Gap Estim Creat Clear Calc Estimated GFR Random Glucose Calcium Magnesium Total Bilirubin Direct Bilirubin AST ALT Alkaline Phosphatase Troponin I High Sens Total Protein Albumin Lipase Stool Occult Blood Influenza Type A (PCR) NEGATIVE Influenza Type B (PCR) NEGATIVE RSV RNA Qual (PCR) NEGATIVE SARS-CoV-2 RNA (RT-PCR) NEGATIVE Imaging Radiologist's Impressions: Impressions Chest X-Ray 03/23/22 16:00 IMPRESSION: 1. No acute cardiopulmonary process. 2. Moderate hiatal hernia. Abdomen/Pelvis CT 03/23/22 17:04 IMPRESSION: 1. Findings compatible with a small bowel obstruction with possible transition point in the central abdomen, as above. No bowel wall thickening or evidence of perforation. 2. Trace perihepatic ascites. 3. Large 8.4 cm left adnexal cyst, mildly increased in size since 2018. Concern for possible low-grade cystic neoplasm. Consider [employer]IM[employer] DAYCARE PROVIDER consultation for further management. 4. Additional chronic findings, as described. Fleischner guidelines were followed. Assessment and Plan (1) Small bowel obstruction: Status: Acute (2) Type 2 diabetes mellitus: Status: Acute (3) Hypertension: Status: Acute (4) Hypothyroidism: Status: Acute Plan 77-year-old female with past medical history of hypertension, diet-controlled diabetes, hypothyroidism, presents to the hospital with small-bowel obstruction, are asked to see this patient for medical management # small-bowel obstruction - patient being managed by surgery - NPO # hypertension - stable - will resume home antihypertensives # thyroidism - continue levothyroxine # diabetes - diet controlled - recommend diabetic diet # history of CVA - continue aspirin and atorvastatin Time Spent With Patient Time: Total time managing care of this patient today ____ minutes.
--- NOTE | 2022-03-23 20:49 | PHA.MEDREC ---
Pharmacy Consult ? Medication Reconciliation Pharmacy has completed the medication reconciliation.
--- NOTE | 2022-03-23 21:14 | PC.NURSE ---
Patient alert and oriented x 3. ambulates independently. s/p fleet enema had soft dark brown stool bowel movement. Patient c/o abdominal pain 10/10 after having bowel movement.
[2022-03-23] MEDS: HYDROmorphone HCl 1 MG/ML SYRINGE 0.5 MG IVPUSH (21:25)
[2022-03-24 00:09] LABS: Appearance Urine Cloudy; Color Urine Yellow; Glucose Urine UA Negative (Negative); Leukocyte Esterase Urine Moderate (2+) (Negative); Nitrite Urine Negative (Negative); PH 6.5 (5.0-9.0); Specific Gravity - Urine >= 1.030 (1.005-1.025); UMIC TRIGGER UACC YES; Urine Blood Trace (Negative); Urine Ketones Negative (Negative); Urine Protein Trace mg/dL (Neg-Trace)
[2022-03-24 00:13] LABS: Bacteria Urine 3+ (None Seen); Hyaline Casts Urine 0-2 /LPF (0-2); RBC Urine 0-2 /HPF (0-2); UACC Culture Trigger YES; WBC Urine >50 /HPF (0-5)
[2022-03-24 00:27] VITALS: BP 139/82; PULSE 80; RESP 17; TEMP 37; O2SAT 96
[2022-03-24 06:15] LABS: MANUAL DIFF FLAG NO
[2022-03-24 06:16] LABS: Eosinophils Absolute Auto 0.4 X10*3/uL (0.0-0.4); Eosinophils Percent Auto 6.9 % (0-4); Hematocrit 32.3 % (37.0-47.0); Hemoglobin 9.8 g/dl (12.0-16.0); Lymphocytes Absolute Auto 1.4 X10*3/uL (1.2-4.9); Lymphocytes Percent Auto 23.2 % (20-40); Mean Corpuscular HGB Conc 30.3 g/dl (31.0-35.0); Mean Corpuscular Hemoglobin 23.5 pg (27.0-33.0); Mean Corpuscular Volume 77.5 fL (80.0-98.0); Mean Platelet Volume 9.9 fL (9.4-12.3); Monocytes Absolute Auto 0.4 X10*3/uL (0.1-1.2); Monocytes Percent Auto 6.4 % (2-11); Neutrophils Absolute Auto 3.8 x10*3/uL (2.0-8.3); Neutrophils Percent Auto 63.5 % (45-73); Platelet Count 224 X10*3/uL (160-400); Red Blood Count 4.17 X10*6/uL (4.20-5.50); Red Cell Distribution Width 16.4 % (11.0-16.0)
[2022-03-24 06:38] VITALS: BP 144/70; PULSE 69; RESP 17; TEMP 36.9; O2SAT 97
[2022-03-24 06:42] LABS: Anion Gap 15 (12-20); Blood Urea Nitrogen 20 mg/dL (9-16); Calcium 8.5 mg/dL (8.4-10.2); Carbon Dioxide 24 mmol/L (22-29); Chloride 110 mmol/L (96-108); Creatinine Clr Calc Pharmacy 70.2; Estimated Glomerular Filt Rate > 60; Glucose Random 98 mg/dL (60-115); Potassium 3.8 mmol/L (3.3-5.1); Sodium 145 mmol/L (135-145)
--- NOTE | 2022-03-24 08:12 | PM.PNGS ---
Subjective Subjective Date of Service: 04/02/22 Interval history: pt admitted last night for abdl pain and vomitting she says she had been severely constipated as well - does have hx of constipation now feels much better no further episodes of vomitting since admission pain on abd much improved had large BMs after fleet enemas in ED Physical Exam Vital Signs: Vital Signs: Last Vital Signs Temp 98.4 F 03/24/22 06:38 Pulse 69 03/24/22 06:38 Resp 17 03/24/22 06:38 BP 144/70 H 03/24/22 06:38 Pulse Ox 97 03/24/22 06:38 O2 Del Method 03/24/22 06:38 BMI result Body Mass Index 19.5 Const: Other: frail looking General: comfortable and no acute distress Orientation/consciousness: patient oriented x3 Resp: Effort & Inspection: normal respiratory effort Cardio: Rate: regular rate GI: Other: soft, not distended, no guarding or rebound, mild tenderness on upper abdomen, no palpable masses Neuro: General: patient oriented x3 Objective Data Active Medications Enoxaparin Sodium (Enoxaparin Sodium 40 Mg/0.4 Ml Syringe) 40 mg SUBCUT Q24H [facility] Last Admin: 03/23/22 20:16 Dose: 40 mg Documented By: BRAYDEN Famotidine (Famotidine/Pf 20 Mg/2 Ml Vial) 20 mg IVPUSH BID@0800,1800 [facility] Hydromorphone HCl (Hydromorphone Hcl 1 Mg/Ml Syringe) 0.5 mg IVPUSH Q4H PRN; Protocol PRN Reason: Pain, Severe (Pain Scale 7-10) Last Admin: 03/23/22 21:25 Dose: 0.5 mg Documented By: BRAYDEN Sodium Chloride (Ns) 1,000 mls @ 80 mls/hr IVCONT .[id number] [facility] Last Admin: 03/23/22 20:10 Dose: 80 mls/hr Documented By: BRAYDEN Ondansetron HCl (Ondansetron Hcl 4 Mg/2 Ml Vial) 4 mg IVPUSH Q8H PRN PRN Reason: Nausea and Vomiting Sodium Chloride (0.9 % Sodium Chloride Flush 3 Ml Syringe) 3 ml IVFLUSH QSHIFT [facility] Last Admin: 02/09/23 00:08 Dose: Not Given Documented By: BRAYDEN Non-Admin Reason: IV Running Labs 03/24/22 06:10 03/24/22 06:10 Labs: Laboratory Results - last 24 hr 03/23/22 03/23/22 03/23/22 16:02 16:10 16:10 MCV MCH MCHC RDW Plt Count MPV Immature Gran % (Auto) Neut % (Auto) Lymph % (Auto) [place] % (Auto) Eos % (Auto) Baso % (Auto) Lymph # (Auto) [place] # (Auto) Eos # (Auto) Baso # (Auto) Abs Immat Gran (auto) Absolute Neuts (auto) Absolute Nucleated RBC Nucleated RBC % (auto) PT INR Anion Gap 18 Estim Creat Clear Calc 59.8 Estimated GFR > 60 Random Glucose 160 H Calcium 10.2 D Magnesium 2.1 Total Bilirubin 1.0 Direct Bilirubin 0.2 AST 26 ALT 16 Alkaline Phosphatase 73 Troponin I High Sens < 3.5 Total Protein 6.8 Albumin 4.3 Lipase 27 Urine Color Urine Appearance Urine pH Ur Specific [place] Urine Protein Urine Glucose (UA) Urine Ketones Urine Blood Urine Nitrite Ur Leukocyte Esterase Urine RBC Urine WBC Ur Squamous Epith Cells Urine Bacteria Hyaline Casts Stool Occult Blood POSITIVE Influenza Type A (PCR) Influenza Type B (PCR) RSV RNA Qual (PCR) SARS-CoV-2 RNA (RT-PCR) 03/23/22 03/23/22 03/23/22 16:10 16:10 16:11 MCV 77.0 L MCH 24.2 L MCHC 31.4 RDW 16.1 H Plt Count 299 MPV 10.0 Immature Gran % (Auto) 0.3 Neut % (Auto) 87.6 H Lymph % (Auto) 7.1 L [place] % (Auto) 3.6 Eos % (Auto) 1.3 Baso % (Auto) 0.1 Lymph # (Auto) 0.9 L [place] # (Auto) 0.5 Eos # (Auto) 0.2 Baso # (Auto) 0.0 Abs Immat Gran (auto) 0.04 H Absolute Neuts (auto) 11.0 H Absolute Nucleated RBC 0.000 Nucleated RBC % (auto) 0.0 PT 11.1 INR 1.0 Anion Gap Estim Creat Clear Calc Estimated GFR Random Glucose Calcium Magnesium Total Bilirubin Direct Bilirubin AST ALT Alkaline Phosphatase Troponin I High Sens Total Protein Albumin Lipase Urine Color Urine Appearance Urine pH Ur Specific [place] Urine Protein Urine Glucose (UA) Urine Ketones Urine Blood Urine Nitrite Ur Leukocyte Esterase Urine RBC Urine WBC Ur Squamous Epith Cells Urine Bacteria Hyaline Casts Stool Occult Blood Influenza Type A (PCR) NEGATIVE Influenza Type B (PCR) NEGATIVE RSV RNA Qual (PCR) NEGATIVE SARS-CoV-2 RNA (RT-PCR) NEGATIVE 03/23/22 03/24/22 03/24/22 23:59 06:10 06:10 MCV 77.5 L MCH 23.5 L MCHC 30.3 L RDW 16.4 H Plt Count 224 D MPV 9.9 Immature Gran % (Auto) 0.0 Neut % (Auto) 63.5 Lymph % (Auto) 23.2 [place] % (Auto) 6.4 Eos % (Auto) 6.9 H Baso % (Auto) 0.0 Lymph # (Auto) 1.4 [place] # (Auto) 0.4 Eos # (Auto) 0.4 Baso # (Auto) 0.0 Abs Immat Gran (auto) 0.00 Absolute Neuts (auto) 3.8 Absolute Nucleated RBC 0.000 Nucleated RBC % (auto) 0.0 PT INR Anion Gap 15 Estim Creat Clear Calc 70.2 Estimated GFR > 60 Random Glucose 98 Calcium 8.5 D Magnesium Total Bilirubin Direct Bilirubin AST ALT Alkaline Phosphatase Troponin I High Sens Total Protein Albumin Lipase Urine Color Yellow Urine Appearance Cloudy Urine pH 6.5 Ur Specific [place] >= 1.030 H Urine Protein Trace Urine Glucose (UA) Negative Urine Ketones Negative Urine Blood Trace H Urine Nitrite Negative Ur Leukocyte Esterase Moderate (2+) H Urine RBC 0-2 Urine WBC >50 H Ur Squamous Epith Cells 11-20 Urine Bacteria 3+ Hyaline Casts 0-2 Stool Occult Blood Influenza Type A (PCR) Influenza Type B (PCR) RSV RNA Qual (PCR) SARS-CoV-2 RNA (RT-PCR) Procedures Date of Service Date of Service: 03/24/22 Progress Note: A&P Assessment and plan (1) Small bowel obstruction: Status: Acute Assessment and Plan: I have reviewed CT with radiologist Dr Burton - PSBO, transition in midabdomen but this appears to be a long segment - likely from postop adhesions, vs enteritis? she has a mesh on abdl wall clinically seems improved had BMs no N/V pain seems resolved at this time consult Gyne for large adnexal cyst consult Hospitalist for multiple medical problems - DM, HTN, hypothyroidism Time Spent With Patient Time: Total time managing care of this patient today ____ minutes. Quality Stroke Does the patient have a stroke diagnosis?: No VTE Prior VTE?: No VTE Risk Level:: Surgical - moderate VTE Device Contraindication: N/A - Device Ordered VTE Drug Contraindication: N/A - Med Ordered
[2022-03-24] MEDS: 0.9 % Sodium Chloride Flush 3 ML SYRINGE IVFLUSH ×2 (08:18→17:11)
[2022-03-24] MEDS: Famotidine/PF 20 MG/2 ML VIAL IVPUSH ×2 (08:18→17:11)
[2022-03-24] MEDS: 0.9 % Sodium Chloride 1,000 ML 80 ML IVCONT ×2 (08:19→17:13)
--- NOTE | 2022-03-24 08:58 | P.CONOB_ITS ---
JUNIOR PROJECT MANAGER - CN: HPI Data of Consult Consult date: 03/24/22 Requesting Physician: Yin Carvajal MD Primary Care Provider: Unknown Physician Consult Narrative Narrative: I was consulted on Briseida Reich who is a 77 year old female who presented yesterday to the emergency room complaining of abdominal pain, nausea vomiting.? The patient gives a history of acute abdominal pain associated with multiple episodes of nausea and vomiting no other associated symptoms. The patient had bowel movement, her abdominal pain has improved markedly as of this morning and no more episodes of nausea and/or vomiting. CT scan showed the followin.? Findings compatible with a small bowel obstruction with possible transition point in the central abdomen, as above. No bowel wall thickening or evidence of perforation. 2.? Trace perihepatic ascites. 3.? Large 8.4 cm left adnexal cyst, mildly increased in size since 2018. Concern for possible low-grade cystic neoplasm. Consider JUNIOR PROJECT MANAGER consultation for further management. 4.? Additional chronic findings, as described. cc:: CC: Yin Carvajal MD PHYSICAL FITNESS TEACHER - Review of Systems Review of Systems ROS Unobtainable: All systems reviewed & are unremarkable except as noted in HPI and below Cardiovascular: Denies Palpatations, Loss of consciousness or Chest pain Respiratory: Denies Cough, Wheezing or Shortness of breath Musculoskeletal: Denies Low back pain Gastrointestinal: Denies Heartburn, Constipation, Diarrhea, Nausea or Vomiting Genitourinary: Denies Pain with urination, Burning with urination or Urinary frequency Neurological: Denies Migranes Psychological: Denies Depression OB [facility] Past Medical History Medical History Adult failure to thrive GERD (gastroesophageal reflux disease) Hernia High blood pressure Hypertension Hypothyroidism Intellectual disability Ischemic stroke Major depressive disorder Osteoporosis Type 2 diabetes mellitus Surgical History Surgical History History of rectal surgery Social History Social History Household Members: None Housing: House Housing Other:: hotel Do you presently have visiting nurse or other home services: Yes (service net) Alcohol intake: never Patient Tobacco Use Status: Former Tobacco user Quit Date: 10+ years ago Tobacco use type: Cigarette Second Hand Smoke Exposure: No service: No Current occupational status: retired and disabled Meds Allergies Allergy/AdvReac Type Severity Reaction Status Date / Time propoxyphene [From Darvon] Allergy Mild UNKNOWN Verified 01/24/22 13:41 metformin [Metformin] AdvReac Mild DIARRHEA, Verified 01/24/22 13:41 RASH Active Medications: Current Medications Enoxaparin Sodium (Enoxaparin Sodium 40 Mg/0.4 Ml Syringe) 40 mg SUBCUT Q24H [facility] Last Admin: 03/23/22 20:16 Dose: 40 mg Famotidine (Famotidine/Pf 20 Mg/2 Ml Vial) 20 mg IVPUSH BID@0800,1800 [facility] Last Admin: 03/24/22 08:18 Dose: 20 mg Hydromorphone HCl (Hydromorphone Hcl 1 Mg/Ml Syringe) 0.5 mg IVPUSH Q4H PRN; Protocol PRN Reason: Pain, Severe (Pain Scale 7-10) Last Admin: 03/23/22 21:25 Dose: 0.5 mg Sodium Chloride (Ns) 1,000 mls @ 80 mls/hr IVCONT .[id number] [facility] Last Admin: 03/24/22 08:19 Dose: 80 mls/hr Ondansetron HCl (Ondansetron Hcl 4 Mg/2 Ml Vial) 4 mg IVPUSH Q8H PRN PRN Reason: Nausea and Vomiting Sodium Chloride (0.9 % Sodium Chloride Flush 3 Ml Syringe) 3 ml IVFLUSH QSHIFT [facility] Last Admin: 03/24/22 08:18 Dose: 3 ml Home Medications Medication Instructions Recorded Confirmed Last Taken Type alendronate 70 mg tablet 70 mg PO CHRISTENSEN@0630 10/13/21 03/23/22 03/20/22 History aspirin 81 mg tablet,delayed 81 mg PO DAILY 10/13/21 03/23/22 03/23/22 History release (Adult Low Dose Aspirin) atenolol 50 mg tablet 50 mg PO DAILY 10/13/21 03/23/22 03/23/22 History atorvastatin 20 mg tablet 20 mg PO DAILY 10/13/21 03/23/22 03/23/22 History calcium carbonate 500 mg calcium 500 mg PO DAILY 10/13/21 03/23/22 03/23/22 History (1,250 mg) tablet (Oyster Shell Calcium) levothyroxine 88 mcg tablet 88 mcg PO DAILY@0600 10/13/21 03/23/22 03/23/22 History omega-3 fatty acids 1,000 mg 1,000 mg PO DAILY 10/13/21 03/23/22 03/23/22 History capsule cholecalciferol (vitamin D3) 1,250 1,250 mcg PO CHRISTENSEN@0900 12/22/21 03/23/22 0 03/20/22 History mcg (50,000 unit) capsule nystatin 100,000 unit/gram topical 1 appl topical BID PRN Rash 01/24/22 03/23/22 Unknown History ointment cholecalciferol (vitamin D3) 50 50 mcg PO DAILY 03/23/22 03/23/22 03/23/22 History mcg (2,000 unit) tablet lisinopril 20 mg tablet 1 tab PO DAILY 03/23/22 03/23/22 03/23/22 History JUNIOR PROJECT MANAGER Physical Exam Vitals Vital signs: Temp Pulse Resp BP Pulse Ox O2 Del Method 98.4 F 69 17 144/70 H 97 03/24/22 06:38 03/24/22 06:38 03/24/22 06:38 03/24/22 06:38 03/24/22 06:38 03/24/22 06:38 BMI result Body Mass Index 19.5 Constitutional General Appearance: Healthy appearing, Well-nourished and Well-developed Psychiatric Mood and Affect: active and alert, normal mood and normal affect Skin Appearance: No rashes and No lesions Lungs Respiratory Effort: No intercostal retractions Auscultation: Clear to auscultation Cardiovascular Auscultation: RRR Abdomen Auscultation/Inspection/Palpation: Normal bowel sounds, Soft and Tenderness (Mild left lower quadrant tenderness, no rebound) Female Genitalia (Pelvic) Exam: Deferred Bladder/Urethra: Normal meatus Vulva: No lesions Vagina: Nontender, Cystocele (Mild) and Rectocele (Moderate) Cervix: Grossly normal Uterus: Normal size Adnexa/Parametria: Adnexal Mass: Left JUNIOR PROJECT MANAGER - Results Labs 03/24/22 06:10 03/24/22 06:10 Labs: Short CBC 03/23/22 03/24/22 Range/Units 16:11 06:10 WBC 12.5 H 6.0 (4.8-10.8) X10*3/uL Hgb 12.4 D 9.8 L D (12.0-16.0) g/dl Hct 39.5 D 32.3 L (37.0-47.0) % Plt Count 299 224 D (160-400) X10*3/uL BMP 03/23/22 03/24/22 16:10 06:10 Sodium 141 145 Potassium 5.2 H D 3.8 D Chloride 106 110 H Carbon Dioxide 22 24 BUN 19 H 20 H Creatinine 0.61 0.52 Calcium 10.2 D 8.5 D Liver Function 03/23/22 Range/Units 16:10 Total Bilirubin 1.0 (0.0-1.0) mg/dL Direct Bilirubin 0.2 (0.0-0.5) mg/dL AST 26 (5-31) U/L ALT 16 (0-31) U/L Alkaline Phosphatase 73 (39-117) U/L Albumin 4.3 (3.5-5.0) g/dL Urine 03/23/22 Range/Units 23:59 Urine Color Yellow Urine Appearance Cloudy Urine pH 6.5 (5.0-9.0) Ur Specific Metcalf >= 1.030 H (1.005-1.025) Urine Protein Trace (Neg-Trace) mg/dL Urine Glucose (UA) Negative (Negative) mg/dL Imaging US - abdomen: Radiologist's impression: ITS Impressions Chest X-Ray 03/23/22 16:00 IMPRESSION: 1. No acute cardiopulmonary process. 2. Moderate hiatal hernia. Abdomen/Pelvis CT 03/23/22 17:04 IMPRESSION: 1. Findings compatible with a small bowel obstruction with possible transition point in the central abdomen, as above. No bowel wall thickening or evidence of perforation. 2. Trace perihepatic ascites. 3. Large 8.4 cm left adnexal cyst, mildly increased in size since 2018. Concern for possible low-grade cystic neoplasm. Consider JUNIOR PROJECT MANAGER consultation for further management. 4. Additional chronic findings, as described. Fleischner guidelines were followed. Doppler Study Ultrasound 03/24/22 09:54 IMPRESSION: Pelvic/Transvag US 03/24/22 09:54 IMPRESSION: Left adnexal cyst, appearing mildly complex, which by CT is mildly larger in size since the evaluation of 2018. JUNIOR PROJECT MANAGER evaluation recommended. Complex hypoechoic lesion in the cervix could potentially reflect a nodule or complex nabothian cyst. Endometrial stripe thickness 0.7 mm, thickened for a patient of this age. JUNIOR PROJECT MANAGER evaluation and sampling may be helpful toward clarification. MR examination of the pelvis without and with IV contrast enhancement may be helpful toward further clarification. Assessment and Plan (1) Adnexal mass: Status: Acute Plan Discussed with the patient the finding of left complex adnexal cyst identified on CT scan and pelvic ultrasound. Arterial and venous Doppler flow were positive, which rules out ovarian torsion. Discussed with the patient the main limitation of imaging alone as a diagnostic tool to distinguish benign from malignant masses relates to its lack of specificity and low positive predictive value for cancer. The differential diagnosis discussed with the patient includes the following but not limited to: benign and malignant gynecological and non- gynecological causes. Laboratory evaluation include serum tumor marker CA 125, ordered . Discussed with the patient that CA 125 is a protein associated with epithelial ovarian malignancies, but also frequently expressed at lower levels by nonmalignant tissue. Elevation of CA 125 levels may occur in nonmalignant gynecologic conditions, and in non-gynecologic cancers, It is most useful in postmenopausal women and in identifying non mucinous epithelial cancer. The CA 125 level is elevated in high portion of patients with epithelial ovarian cancer but in only half of patients with early stage disease; discussed with the patient the sensitivity, specificity, positive predictive value and negative predictive value. Recommended referral to [facility] at [facility] after her hospital discharge since there is no [facility] [facility] [facility] service at [facility] and the differential diagnosis of her complex ovarian cyst includes potential malignancy. All questions answered, the patient verbalized understanding. Time Spent With Patient Time: Total time managing care of this patient today ____ minutes.
--- NOTE | 2022-03-24 11:12 | PC.NURSE ---
at the bedside with legal assistant to perform pelivc exam. patient okayed exam; tolerated well.
--- NOTE | 2022-03-24 12:52 | PC.NURSE ---
ambulating with strong steady gait to and from the bathroom.
--- NOTE | 2022-03-24 13:17 | PC.NURSE ---
nurse to nurse report given to MATTIE Neves
[2022-03-24 13:45] VITALS: BP 166/77; PULSE 70; RESP 18; TEMP 36.4; O2SAT 95
[2022-03-24] MEDS: HYDROmorphone HCl 1 MG/ML SYRINGE 0.5 MG IVPUSH ×2 (13:52→19:36)
[2022-03-24 15:38] VITALS: BP 144/70; PULSE 64; RESP 18; TEMP 36.3; O2SAT 95
--- NOTE | 2022-03-24 17:11 | PM.EVENT ---
Event Note Date of Service: 03/24/22 Event Note: continues to feel well says she has minimal abdl pain abd remains soft and benign she looks well plan to start clear liquids in AM and advance slowly as tolerated Time Spent With Patient Time: Total time managing care of this patient today ____ minutes.
[2022-03-24 19:18] VITALS: BP 132/65; PULSE 65; RESP 18; TEMP 36.1; O2SAT 97
[2022-03-24] MEDS: Enoxaparin Sodium 40 MG/0.4 ML SYRINGE SUBCUT (19:27)
[2022-03-24 20:00] VITALS: RESP 20
[2022-03-25 03:43] VITALS: BP 124/65; PULSE 69; RESP 18; TEMP 37.1; O2SAT 98
[2022-03-25] MEDS: 0.9 % Sodium Chloride 1,000 ML 80 ML IVCONT ×2 (04:38→17:30)
[2022-03-25 07:22] LABS: Glucose, Whole Blood 81 mg/dL (60-115)
[2022-03-25 08:00] VITALS: BP 149/71; PULSE 66; RESP 18; TEMP 36.3; O2SAT 98
--- NOTE | 2022-03-25 08:13 | PM.PNGS ---
Subjective Subjective Date of Service: 03/25/22 <Mariangel Herrera PA-C - Last Filed: 03/25/22 08:17> 03/25/22 <Kirit Hatfield MD - Last Filed: 03/25/22 09:17> Interval history: Had some pain last night and she required analgesics. Reports it was on left lower abd. Resolved with pain med. Denies nausea, vomiting. Denies bloating. Has passed a little flatus. Has been OOB only to bathroom. <Mariangel Herrera PA-C - Last Filed: 03/25/22 08:17> Physical Exam Vital Signs: Vital Signs: Last Vital Signs Temp 98.8 F 03/25/22 03:43 Pulse 69 03/25/22 03:43 Resp 18 03/25/22 03:43 BP 124/65 03/25/22 03:43 Pulse Ox 98 03/25/22 03:43 O2 Del Method 03/25/22 03:43 BMI result Body Mass Index 19.5 <Mariangel Herrera PA-C - Last Filed: 03/25/22 08:17> Const: General: comfortable, no acute distress and alert <Mariangel Herrera PA-C - Last Filed: 03/25/22 08:17> Orientation/consciousness: patient oriented x3 <Mariangel Herrera PA-C - Last Filed: 03/25/22 08:17> GI: Inspection: No distended <Mariangel Herrera PA-C - Last Filed: 03/25/22 08:17> Palpation (GI): Soft to palpation, Tenderness to palpation present (GI) (LLQ tenderness) with no rebound tenderness, no guarding and not rigid <Mariangel Herrera PA-C - Last Filed: 03/25/22 08:17> Percussion: Yes normal to percussion <BOO Cruz Last Filed: 03/25/22 08:17> Skin: General skin exam: no rashes or lesions noted <BOO Cruz Last Filed: 03/25/22 08:17> Neuro: General: patient oriented x3 and moves all extremities <Mariangel Herrera PA-C - Last Filed: 03/25/22 08:17> Objective Data Active Medications Enoxaparin Sodium (Enoxaparin Sodium 40 Mg/0.4 Ml Syringe) 40 mg SUBCUT Q24H [facility] Last Admin: 03/24/22 19:27 Dose: 40 mg Documented By: JUNE Famotidine (Famotidine/Pf 20 Mg/2 Ml Vial) 20 mg IVPUSH BID@0800,1800 [facility] Last Admin: 03/24/22 17:11 Dose: 20 mg Documented By: MOE Hydromorphone HCl (Hydromorphone Hcl 1 Mg/Ml Syringe) 0.5 mg IVPUSH Q4H PRN; Protocol PRN Reason: Pain, Severe (Pain Scale 7-10) Last Admin: 03/24/22 19:36 Dose: 0.5 mg Documented By: JUNE Sodium Chloride (Ns) 1,000 mls @ 80 mls/hr IVCONT .[id number] [facility] Last Admin: 03/25/22 04:38 Dose: 80 mls/hr Documented By: JUNE Ondansetron HCl (Ondansetron Hcl 4 Mg/2 Ml Vial) 4 mg IVPUSH Q8H PRN PRN Reason: Nausea and Vomiting Sodium Chloride (0.9 % Sodium Chloride Flush 3 Ml Syringe) 3 ml IVFLUSH QSHIFT [facility] Last Admin: 03/24/22 19:28 Dose: Not Given Documented By: JUNE Non-Admin Reason: IV Running <Mariangel Herrera PA-C - Last Filed: 03/25/22 08:17> Labs CBC & Chem 7: 03/24/22 06:10 03/24/22 06:10 <BOO Cruz Last Filed: 03/25/22 08:17> Labs: Laboratory Results - last 24 hr 03/25/22 07:12 POC Glucose 81 <BOO Cruz Last Filed: 03/25/22 08:17> Procedures Date of Service Date of Service: 03/25/22 <BOO Cruz Last Filed: 03/25/22 08:17> Progress Note: A&P Assessment and plan (1) Small bowel obstruction: Status: Acute <Mariangel Herrera PA-C - Last Filed: 03/25/22 08:17> (2) Adnexal mass: Status: Acute <Mariangel Herrera PA-C - Last Filed: 03/25/22 08:17> Assessment and Plan: feels well this AM describes episode of pain last night abd soft and very benign ok for clear liquids willm start on Colace for chronic constipation seen and examined independently <Kirit Hatfield MD - Last Filed: 03/25/22 09:17> Assessment and Plan: 77 year old female admitted with SBO. She is having some pain but it is mostly left sided and resolves with analgesics- may be mostly from left adnexal cyst instead of obstruction as her abd is very soft and nondistended. Will therefore advance to clear liquids. Encouraged OOB and ambulation. Will advance diet further as tolerated. Left complex adnexal cyst identified on CT scan and pelvic ultrasound. CA [address] Alanis who recommends referral to [facility] upon discharge. <Mariangel Herrera PA-C - Last Filed: 03/25/22 08:17> 77 year old female admitted with SBO. She is having some pain but it is mostly left sided and resolves with analgesics- may be mostly from left adnexal cyst instead of obstruction as her abd is very soft and nondistended. Will therefore advance to clear liquids. Encouraged OOB and ambulation. Will advance diet further as tolerated. Left complex adnexal cyst identified on CT scan and pelvic ultrasound. CA [address] Alanis who recommends referral to [facility] upon discharge. <Kirit Hatfield MD - Last Filed: 03/25/22 09:17> Time Spent With Patient Time: Total time managing care of this patient today ____ minutes. <Mariangel Herrera PA-C - Last Filed: 03/25/22 08:17> Quality Stroke Does the patient have a stroke diagnosis?: No <Mariangel Herrera PA-C - Last Filed: 03/25/22 08:17> VTE Prior VTE?: No <Mariangel Herrera PA-C - Last Filed: 03/25/22 08:17> VTE Risk Level:: Surgical - moderate <Mariangel Herrera PA-C - Last Filed: 03/25/22 08:17> VTE Device Contraindication: N/A - Device Ordered <BOO Cruz Last Filed: 03/25/22 08:17> VTE Drug Contraindication: N/A - Med Ordered <Mariangel Herrera PA-C - Last Filed: 03/25/22 08:17>
[2022-03-25] MEDS: Famotidine/PF 20 MG/2 ML VIAL IVPUSH ×2 (09:55→17:29)
[2022-03-25] MEDS: 0.9 % Sodium Chloride Flush 3 ML SYRINGE IVFLUSH (09:55)
[2022-03-25 11:37] LABS: Glucose, Whole Blood 175 mg/dL (60-115)
[2022-03-25] MEDS: ondansetron HCL 4 MG/2 ML VIAL IVPUSH (13:23)
[2022-03-25] MEDS: HYDROmorphone HCl 1 MG/ML SYRINGE 0.5 MG IVPUSH ×2 (13:23→21:18)
--- NOTE | 2022-03-25 14:23 | MHC.CM.PN ---
CM MET WITH PT AND ONE OF HER COMMUNITY SUPPORT WORKERS PT LIVES ALONE AND HAS SERVICE [employer] STAFF MEMBERS WHO CHECK IN ON HER AT LEAST DAILY THEY ALSO TAKE HER TO APPOINTMENTS AND SHOPPING PRN PT HAS NO OTHER SERVICES AND NO DME PT COMPLETED A HCP TODAY NAMING SUJATA THOMASON [phone] HER AGENT SHE IS ALSO INTERESTED IN COMPLETING A MOLST WHILE HERE MD WILL BE INFORMED SHE IS NOT COVID VAX, BUT IS CONSIDERING IT PCP: [facility] DELIVERED DCP: HOME RESUME SUPPORT SERVICES WITH [facility] WHO WILL ALSO PROVIDE TRANSPORT
[2022-03-25 15:44] VITALS: BP 142/76; PULSE 67; RESP 19; TEMP 36.5; O2SAT 95
[2022-03-25 16:13] LABS: Glucose, Whole Blood 107 mg/dL (60-115)
[2022-03-25 20:00] VITALS: BP 175/85; PULSE 70; RESP 18; TEMP 36.5; O2SAT 95
[2022-03-25] MEDS: Enoxaparin Sodium 40 MG/0.4 ML SYRINGE SUBCUT (21:18)
[2022-03-25 22:03] VITALS: BP 129/67; PULSE 63; RESP 18; O2SAT 96
[2022-03-26 04:00] VITALS: BP 159/70; PULSE 71; RESP 18; TEMP 36; O2SAT 96
[2022-03-26] MEDS: HYDROmorphone HCl 1 MG/ML SYRINGE 0.5 MG IVPUSH ×3 (04:35→21:06)
[2022-03-26] MEDS: 0.9 % Sodium Chloride 1,000 ML 80 ML IVCONT ×2 (05:40→17:25)
[2022-03-26 07:22] VITALS: BP 154/85; PULSE 62; RESP 18; TEMP 35.5; O2SAT 95
[2022-03-26] MEDS: Famotidine/PF 20 MG/2 ML VIAL IVPUSH ×2 (07:27→17:20)
[2022-03-26] MEDS: ondansetron HCL 4 MG/2 ML VIAL IVPUSH (07:27)
[2022-03-26 08:23] LABS: Hematocrit 30.5 % (37.0-47.0); Hemoglobin 9.5 g/dl (12.0-16.0); Mean Corpuscular HGB Conc 31.1 g/dl (31.0-35.0); Mean Corpuscular Hemoglobin 24.4 pg (27.0-33.0); Mean Corpuscular Volume 78.4 fL (80.0-98.0); Mean Platelet Volume 10.1 fL (9.4-12.3); Platelet Count 202 X10*3/uL (160-400); Red Blood Count 3.89 X10*6/uL (4.20-5.50); Red Cell Distribution Width 16.3 % (11.0-16.0); White Blood Count 5.4 X10*3/uL (4.8-10.8)
[2022-03-26 08:48] LABS: Anion Gap 11 (12-20); Blood Urea Nitrogen 5 mg/dL (9-16); Calcium 8.3 mg/dL (8.4-10.2); Carbon Dioxide 26 mmol/L (22-29); Chloride 108 mmol/L (96-108); Creatinine Clr Calc Pharmacy 84.9; Estimated Glomerular Filt Rate > 60; Glucose Random 100 mg/dL (60-115); Potassium 3.4 mmol/L (3.3-5.1); Sodium 142 mmol/L (135-145)
--- NOTE | 2022-03-26 11:10 | HO.PM.IMPN ---
Subjective Subjective Date of Service: 03/26/22 Interval History: seen and examined this morning follow up medical consultation patient with ongoing abdominal pain, gas and nausea no sob, chest pain Review of Systems Review of Systems: Yes all other systems are reviewed and are negative Constitutional Constitutional: Denies chills and Denies fever(s) Cardiovascular Cardiovascular: Denies chest pain, Denies palpitations and Denies dyspnea Respiratory Respiratory: Denies cough and Denies dyspnea Gastrointestinal Gastrointestinal: Denies abdominal pain, Denies nausea and Denies vomiting Endocrine Endocrine: Denies palpitations Physical Exam Vital Signs: Vital Signs: Last Vital Signs Temp 96 F L 03/26/22 07:22 Pulse 62 03/26/22 07:22 Resp 18 03/26/22 07:22 BP 154/85 H 03/26/22 07:22 Pulse Ox 95 03/26/22 07:22 O2 Del Method 03/26/22 07:22 BMI result Body Mass Index 19.5 Const: General: cooperative, comfortable, no acute distress, alert and awake Nutritional Appearance: thin Orientation/consciousness: patient oriented x3 Resp: Effort & Inspection: normal respiratory effort and able to speak in complete sentences Auscultation: clear to auscultation bilaterally Cardio: Rate: regular rate Heart sounds: S1 normal heart sound present and S2 normal heart sound present GI: Other: +bowel sounds Inspection: No distended Palpation (GI): Soft to palpation Neuro: General: patient oriented x3 and CN's II-XI intact bilaterally Extrem: General: Yes no pedal edema Objective Data Active Medications Enoxaparin Sodium (Enoxaparin Sodium 40 Mg/0.4 Ml Syringe) 40 mg SUBCUT Q24H [facility] Last Admin: 03/25/22 21:18 Dose: 40 mg Documented By: JUNE Famotidine (Famotidine/Pf 20 Mg/2 Ml Vial) 20 mg IVPUSH BID@0800,1800 [facility] Last Admin: 03/26/22 07:27 Dose: 20 mg Documented By: DAGMAR Hydromorphone HCl (Hydromorphone Hcl 1 Mg/Ml Syringe) 0.5 mg IVPUSH Q4H PRN; Protocol PRN Reason: Pain, Severe (Pain Scale 7-10) Last Admin: 03/26/22 04:35 Dose: 0.5 mg Documented By: HO.LYSZ Sodium Chloride (Ns) 1,000 mls @ 80 mls/hr IVCONT .[id number] [facility] Last Admin: 03/26/22 05:40 Dose: 80 mls/hr Documented By: JUNE Levothyroxine Sodium (Levothyroxine Sodium 88 Mcg Tablet) 88 mcg PO DAILY@0600 [facility] Ondansetron HCl (Ondansetron Hcl 4 Mg/2 Ml Vial) 4 mg IVPUSH Q8H PRN PRN Reason: Nausea and Vomiting Last Admin: 03/26/22 07:27 Dose: 4 mg Documented By: DAGMAR Sodium Chloride (0.9 % Sodium Chloride Flush 3 Ml Syringe) 3 ml IVFLUSH QSHIFT [facility] Last Admin: 03/26/22 07:42 Dose: Not Given Documented By: DAGMAR Non-Admin Reason: IV Running Labs 03/26/22 07:56 03/26/22 07:56 Labs: Laboratory Results - last 24 hr 03/25/22 03/25/22 03/26/22 11:28 15:52 07:56 MCV 78.4 L MCH 24.4 L MCHC 31.1 RDW 16.3 H Plt Count 202 MPV 10.1 Absolute Nucleated RBC 0.000 Nucleated RBC % (auto) 0.0 Anion Gap Estim Creat Clear Calc Estimated GFR POC Glucose 175 H 107 Random Glucose Calcium 03/26/22 07:56 MCV MCH MCHC RDW Plt Count MPV Absolute Nucleated RBC Nucleated RBC % (auto) Anion Gap 11 L Estim Creat Clear Calc 84.9 Estimated GFR > 60 POC Glucose Random Glucose 100 Calcium 8.3 L Microbiology Microbiology Results: Microbiology 03/24/22 Unknown Urine Culture - Final Urine clean catch - Clean Catch Midstream Assessment and Plan (1) Type 2 diabetes mellitus: Status: Acute (2) Hypertension: Status: Acute Plan 77-year-old female with past medical history of hypertension, diet-controlled diabetes, hypothyroidism, presents to the hospital with small-bowel obstruction, are asked to see this patient for medical management small-bowel obstruction management per surgical team currently NPO hypertension stable lisinopril, atenolol on hold follow bp resume as tolerated hypothyroidism continue levothyroxine diabetes diet controlled history of CVA asa/statin on hold we will follow along with you Time Spent With Patient Time: Total time managing care of this patient today ____ minutes. Quality Stroke Does the patient have a stroke diagnosis?: No VTE Prior VTE?: No VTE Risk Level:: Surgical - moderate VTE Device Contraindication: N/A - Device Ordered VTE Drug Contraindication: N/A - Med Ordered
--- NOTE | 2022-03-26 12:34 | MHC.CM.PN ---
CM DISCUSSED W/SURGICAL PT & SERVICE NET STAFFS REQUEST FOR MOLST TO BE DONE WHILE INPT, PER SURGICAL PT HAS AN OVARIAN MASS THAT HAS INCREASED IN SIZE AND WILL NEED TO FOLLOW UP W/GYNO ONCOLOGY AT [facility] AND RECOMMENDS PT COMPLETE A MOLST W/PCP AFTER FOLLOW-UP W/ONCOLOGY AT [facility], CM TO DISUSS W/PT. PER SURGICAL PT WILL LIKELY BE CLEARED FOR D/C TODAY W/RESUMP OF SERVICES NET SUPPORT SERVICES AND SERVICE NET STAFF FOR TRANSPORT.
--- NOTE | 2022-03-26 13:21 | P.PNGS_ITS ---
Subjective Subjective Date of Service: 03/26/22 Interval history: pt with some gas no bowel movement some nausea but no emesis with cler liquids Physical Exam Vital Signs: Vital Signs: Last Vital Signs Temp 96 F L 03/26/22 07:22 Pulse 62 03/26/22 07:22 Resp 18 03/26/22 07:22 BP 154/85 H 03/26/22 07:22 Pulse Ox 95 03/26/22 07:22 O2 Del Method 03/26/22 07:22 BMI result Body Mass Index 19.5 Const: General: cooperative, healthy appearing and comfortable Resp: Effort & Inspection: normal respiratory effort Auscultation: clear to auscultation bilaterally Cardio: Rate: regular rate Rhythm: regular rhythm GI: Other: abdomen is soft not tender active bowel sounds Psych: Appearance: grossly normal Mental Status: mental status grossly normal Speech and movement: Normal speech and movement present Objective Data Active Medications Enoxaparin Sodium (Enoxaparin Sodium 40 Mg/0.4 Ml Syringe) 40 mg SUBCUT Q24H [facility] Last Admin: 03/25/22 21:18 Dose: 40 mg Documented By: JUNE Famotidine (Famotidine/Pf 20 Mg/2 Ml Vial) 20 mg IVPUSH BID@0800,1800 [facility] Last Admin: 03/26/22 07:27 Dose: 20 mg Documented By: DAGMAR Hydromorphone HCl (Hydromorphone Hcl 1 Mg/Ml Syringe) 0.5 mg IVPUSH Q4H PRN; Protocol PRN Reason: Pain, Severe (Pain Scale 7-10) Last Admin: 03/26/22 11:54 Dose: 0.5 mg Documented By: DAGMAR Sodium Chloride (Ns) 1,000 mls @ 80 mls/hr IVCONT .[id number] [facility] Last Admin: 03/26/22 11:49 Dose: Not Given Documented By: DAGMAR Non-Admin Reason: IV Running Levothyroxine Sodium (Levothyroxine Sodium 88 Mcg Tablet) 88 mcg PO DAILY@0600 [facility] Ondansetron HCl (Ondansetron Hcl 4 Mg/2 Ml Vial) 4 mg IVPUSH Q8H PRN PRN Reason: Nausea and Vomiting Last Admin: 03/26/22 07:27 Dose: 4 mg Documented By: DAGMAR Sodium Chloride (0.9 % Sodium Chloride Flush 3 Ml Syringe) 3 ml IVFLUSH QSHIFT [facility] Last Admin: 03/26/22 07:42 Dose: Not Given Documented By: DAGMAR Non-Admin Reason: IV Running Labs 03/26/22 07:56 03/26/22 07:56 Labs: Laboratory Results - last 24 hr 03/25/22 03/26/22 03/26/22 15:52 07:56 07:56 MCV 78.4 L MCH 24.4 L MCHC 31.1 RDW 16.3 H Plt Count 202 MPV 10.1 Absolute Nucleated RBC 0.000 Nucleated RBC % (auto) 0.0 Anion Gap 11 L Estim Creat Clear Calc 84.9 Estimated GFR > 60 POC Glucose 107 Random Glucose 100 Calcium 8.3 L Microbiology Microbiology Results: Microbiology 03/24/22 Unknown Urine Culture - Final Urine clean catch - Clean Catch Midstream Procedures Date of Service Date of Service: 03/26/22 Progress Note: A&P Assessment and plan (1) Small bowel obstruction: Status: Acute Assessment and Plan: pt is 77 year old female with resolving SBO and left ovarian mass - doing ok plan to advance to small regular diet today and see how she does. if ok then dc home tomorrow with plans to fu with pyridine recovery operator onc at [facility]. Time Spent With Patient Time: Total time managing care of this patient today ____ minutes. Quality Stroke Does the patient have a stroke diagnosis?: No VTE Prior VTE?: No VTE Risk Level:: Surgical - moderate VTE Device Contraindication: N/A - Device Ordered VTE Drug Contraindication: N/A - Med Ordered
[2022-03-26 15:18] VITALS: BP 164/76; PULSE 73; RESP 18; TEMP 37; O2SAT 95
[2022-03-26] MEDS: atenoloL 50 MG TABLET PO (17:20)
[2022-03-26 19:34] VITALS: BP 135/75; PULSE 70; RESP 18; TEMP 36.9; O2SAT 97
[2022-03-26] MEDS: Enoxaparin Sodium 40 MG/0.4 ML SYRINGE SUBCUT (21:00)
[2022-03-27 03:18] VITALS: BP 124/77; PULSE 65; RESP 18; TEMP 36.3; O2SAT 95
[2022-03-27] MEDS: 0.9 % Sodium Chloride 1,000 ML 80 ML IVCONT (05:09)
[2022-03-27] MEDS: Levothyroxine Sodium 88 MCG TABLET PO (05:48)
[2022-03-27 07:19] VITALS: BP 160/70; PULSE 67; RESP 18; O2SAT 95
[2022-03-27] MEDS: HYDROmorphone HCl 1 MG/ML SYRINGE 0.5 MG IVPUSH (07:25)
[2022-03-27] MEDS: ondansetron HCL 4 MG/2 ML VIAL IVPUSH (07:25)
[2022-03-27] MEDS: Famotidine/PF 20 MG/2 ML VIAL IVPUSH (07:25)
[2022-03-27] MEDS: atenoloL 50 MG TABLET PO (07:26)
[2022-03-27 08:00] VITALS: PULSE 60; RESP 18; TEMP 36.8; O2SAT 95
--- NOTE | 2022-03-27 10:01 | P.PNIM_ITS ---
Subjective Subjective Date of Service: 03/27/22 Interval History: seen and examined this morning follow up for medical consultation still having some mild abdominal pain, primarily left lower abdomen no nausea or vomiting, tolerating diet Review of Systems Review of Systems: Yes all other systems are reviewed and are negative Constitutional Constitutional: Denies chills and Denies fever(s) Cardiovascular Cardiovascular: Denies chest pain, Denies palpitations and Denies dyspnea Respiratory Respiratory: Denies cough and Denies dyspnea Gastrointestinal Gastrointestinal: Reports abdominal pain and Denies nausea Endocrine Endocrine: Denies palpitations Physical Exam Vital Signs: Vital Signs: Last Vital Signs Temp 98.2 F 03/27/22 08:00 Pulse 60 03/27/22 08:00 Resp 18 03/27/22 08:00 BP 160/70 H 03/27/22 07:19 Pulse Ox 95 03/27/22 08:00 O2 Del Method 03/27/22 08:00 BMI result Body Mass Index 19.5 Const: General: cooperative, comfortable, no acute distress, alert and awake Nutritional Appearance: thin Orientation/consciousness: patient oriented x3 Resp: Effort & Inspection: normal respiratory effort and able to speak in complete sentences Auscultation: clear to auscultation bilaterally Cardio: Rate: regular rate Heart sounds: S1 normal heart sound present and S2 normal heart sound present GI: Other: sfot +bowel sounds, some tenderness left lower abdomen, no guarding; non distended Neuro: General: patient oriented x3 and CN's II-XI intact bilaterally Extrem: General: Yes no pedal edema Objective Data Active Medications Atenolol (Atenolol 50 Mg Tablet) 50 mg PO DAILY [facility]; Protocol Last Admin: 03/27/22 07:26 Dose: 50 mg Documented By: DAGMAR Benzocaine (Throat Lozenge, Medicated Lozenge) 1 lozenge MUCOUS MEM Q2H PRN PRN Reason: Sore Throat Enoxaparin Sodium (Enoxaparin Sodium 40 Mg/0.4 Ml Syringe) 40 mg SUBCUT Q24H [facility] Last Admin: 03/26/22 21:00 Dose: 40 mg Documented By: CHRISTEN Famotidine (Famotidine/Pf 20 Mg/2 Ml Vial) 20 mg IVPUSH BID@0800,1800 [facility] Last Admin: 03/27/22 07:25 Dose: 20 mg Documented By: DAGMAR Hydromorphone HCl (Hydromorphone Hcl 1 Mg/Ml Syringe) 0.5 mg IVPUSH Q4H PRN; Protocol PRN Reason: Pain, Severe (Pain Scale 7-10) Last Admin: 03/27/22 07:25 Dose: 0.5 mg Documented By: DAGMAR Levothyroxine Sodium (Levothyroxine Sodium 88 Mcg Tablet) 88 mcg PO DAILY@0600 [facility] Last Admin: 03/27/22 05:48 Dose: 88 mcg Documented By: CHRISTEN Ondansetron HCl (Ondansetron Hcl 4 Mg/2 Ml Vial) 4 mg IVPUSH Q8H PRN PRN Reason: Nausea and Vomiting Last Admin: 03/27/22 07:25 Dose: 4 mg Documented By: DAGMAR Sodium Chloride (0.9 % Sodium Chloride Flush 3 Ml Syringe) 3 ml IVFLUSH QSHIFT [facility] Last Admin: 03/27/22 09:38 Dose: Not Given Documented By: DAGMAR Non-Admin Reason: IV Running Labs 03/26/22 07:56 03/26/22 07:56 Assessment and Plan (1) Hypertension: Status: Acute (2) Type 2 diabetes mellitus: Status: Acute (3) Hypothyroidism: Status: Acute Plan 77-year-old female with past medical history of hypertension, diet-controlled diabetes, hypothyroidism, presents to the hospital with small-bowel obstruction, are asked to see this patient for medical management small-bowel obstruction management per surgical team anemia, appears chronic likely hemoconcentrated on admission H/H stable recommend outpatient follow up with PCP hypertension stable atenolol resume, can resume lisinopril on discharge hypothyroidism continue levothyroxine diabetes diet controlled history of CVA asa/statin can be resumed on discharge left complex annexal cyst seen by [facility] DIRECT[facility] - rec outpatient follow up at [facility] cooperative education director onc CA125 pending Thank you for allowing us to participate in the care of this patient. No acute medical issues at this time, we will sign off. please feel free to contact us if any acute medical condition arise. Time Spent With Patient Time: Total time managing care of this patient today ____ minutes. Quality Stroke Does the patient have a stroke diagnosis?: No VTE Prior VTE?: No VTE Risk Level:: Surgical - moderate VTE Device Contraindication: N/A - Device Ordered VTE Drug Contraindication: N/A - Med Ordered
--- NOTE | 2022-03-27 11:37 | P.PNGS_ITS ---
Subjective Subjective Date of Service: 03/27/22 Physical Exam Vital Signs: Vital Signs: Last Vital Signs Temp 98.2 F 03/27/22 08:00 Pulse 60 03/27/22 08:00 Resp 18 03/27/22 08:00 BP 160/70 H 03/27/22 07:19 Pulse Ox 95 03/27/22 08:00 O2 Del Method 03/27/22 08:00 BMI result Body Mass Index 19.5 Objective Data Active Medications Atenolol (Atenolol 50 Mg Tablet) 50 mg PO DAILY [facility]; Protocol Last Admin: 03/27/22 07:26 Dose: 50 mg Documented By: DAGMAR Benzocaine (Throat Lozenge, Medicated Lozenge) 1 lozenge MUCOUS MEM Q2H PRN PRN Reason: Sore Throat Enoxaparin Sodium (Enoxaparin Sodium 40 Mg/0.4 Ml Syringe) 40 mg SUBCUT Q24H [facility] Last Admin: 03/26/22 21:00 Dose: 40 mg Documented By: CHRISTEN Famotidine (Famotidine/Pf 20 Mg/2 Ml Vial) 20 mg IVPUSH BID@0800,1800 [facility] Last Admin: 03/27/22 07:25 Dose: 20 mg Documented By: DAGMAR Hydromorphone HCl (Hydromorphone Hcl 1 Mg/Ml Syringe) 0.5 mg IVPUSH Q4H PRN; Protocol PRN Reason: Pain, Severe (Pain Scale 7-10) Last Admin: 03/27/22 07:25 Dose: 0.5 mg Documented By: DAGMAR Levothyroxine Sodium (Levothyroxine Sodium 88 Mcg Tablet) 88 mcg PO DAILY@0600 [facility] Last Admin: 03/27/22 05:48 Dose: 88 mcg Documented By: CHRISTEN Lisinopril (Lisinopril 20 Mg Tablet) 20 mg PO DAILY [facility]; Protocol Ondansetron HCl (Ondansetron Hcl 4 Mg/2 Ml Vial) 4 mg IVPUSH Q8H PRN PRN Reason: Nausea and Vomiting Last Admin: 03/27/22 07:25 Dose: 4 mg Documented By: DAGMAR Sodium Chloride (0.9 % Sodium Chloride Flush 3 Ml Syringe) 3 ml IVFLUSH QSHIFT [facility] Last Admin: 03/27/22 09:38 Dose: Not Given Documented By: DAGMAR Non-Admin Reason: IV Running Labs 03/26/22 07:56 03/26/22 07:56 Progress Note: A&P Time Spent With Patient Time: Total time managing care of this patient today ____ minutes. Quality Stroke Does the patient have a stroke diagnosis?: No VTE Prior VTE?: No VTE Risk Level:: Surgical - moderate VTE Device Contraindication: N/A - Device Ordered VTE Drug Contraindication: N/A - Med Ordered
--- NOTE | 2022-03-27 12:09 | PM.DS ---
DS: Providers Provider Date of Service: 03/27/22 Date of admission: 03/23/22 19:54 Date of discharge: 03/27/22 Primary care physician: Sangeetha Sage MD Admitting clinician: Yin Carvajal Consults: 03/23/22 20:04 Consult to Hospitalist Routine Consulting Provider: Hospitalist Reason For Exam: med management 03/24/22 08:18 Consult to Obstetrics / Gynecology Routine Consulting Provider: Alphonse Alanis Reason for consultation: large adnexal cyst Attending physician on discharge: Yin Carvajal DS: Diagnosis Discharge Diagnosis (1) Hypertension: Status: Acute (2) Type 2 diabetes mellitus: Status: Acute (3) Hypothyroidism: Status: Acute (4) Small bowel obstruction: Status: Acute (5) Adnexal mass: Status: Acute DS: Summary Hospital Course Hospital Course: The pt is a 77 dina old female with came in with abdominal pain and nausea dn voiting and who was noted to have psbo and left adnexal mass suspicious for malignancy. She improved from her psbo with conservative and bowel rest. doing well now with no nausea dn vomiting having bowel movements and tolerating po diet. pt seen by ACETYLENE OPERATOR here who is recommending pt to see ACETYLENE OPERATOR oncology [facility]. Pt understands and agrees with the plan Status at Discharge Functional status at discharge: independent ambulation Overall status at discharge: patient is progressing back to baseline Time Spent with Patient Time attestation: Total time managing care of this patient today ____ minutes. Discharge coordination time: Greater than 30 minutes Quality: Safe Use of Opioids Does Pt have an Active Cancer Diagnosis on the Problem List?: No Quality: Stroke Does the patient have a stroke diagnosis?: No Physical Exam Vital Signs: Vital Signs: Last Vital Signs Temp 98.2 F 03/27/22 08:00 Pulse 60 03/27/22 08:00 Resp 18 03/27/22 08:00 BP 160/70 H 03/27/22 07:19 Pulse Ox 95 03/27/22 08:00 O2 Del Method 03/27/22 08:00 BMI result Body Mass Index 19.5 Discharge Plan Discharge Anticipated Discharge Date/Time: 03/26/22 09:25 Patient Disposition: Home, Self-Care Discharge Diagnosis: SBO, adnexal mass Referrals: Sangeetha Sage MD [Primary Care Provider] - 1 Week Jyoti Mojica MD [Physician] - 1 Week (PLEASE CALL [phone] TO SCHEDULE A FOLLOW UP APPT. ) Discharge Medications: New docusate sodium [Colace] 100 mg capsule 100 mg PO DAILY Qty: 60 2RF Continued nystatin 100,000 unit/gram ointment 1 appl topical BID PRN (Reason: Rash) Rx Instructions: Apply to rash under breasts twice a day for 2 weeks lisinopril 20 mg tablet 1 tab PO DAILY cholecalciferol (vitamin D3) 50 mcg (2,000 unit) Tablet 50 mcg PO DAILY atorvastatin 20 mg tablet 20 mg PO DAILY levothyroxine 88 mcg tablet 88 mcg PO DAILY@0600 omega-3 fatty acids 1,000 mg capsule 1,000 mg PO DAILY alendronate 70 mg tablet 70 mg PO CHRISTENSEN@0630 atenolol 50 mg tablet 50 mg PO DAILY aspirin [Adult Low Dose Aspirin] 81 mg tablet,delayed release (DR/EC) 81 mg PO DAILY calcium carbonate [Oyster Shell Calcium] 500 mg calcium (1,250 mg) tablet 500 mg PO DAILY cholecalciferol (vitamin D3) 1,250 mcg (50,000 unit) capsule 1,250 mcg PO CHRISTENSEN@0900 Discharge Orders: Discharge Order (Routine); Ordered 03/27/22 Ordered By: Yin Carvajal Diet: Advance to usual diet Activity on Discharge: As tolerated Stand Alone Forms: Patient Portal Discharge page Care Plan Goals: pt needs follow up with Behavioral Intervention Specialist oncology at [facility] - [phone] [facility] pt needs to call to set up an appointment Health Concerns: left ovarian mass Plan of Treatment: light diet at home stool softeners walking Assessment: doing well resolved bowel obstruction. needs to have qu and plan for the left ovarian mass
[2022-03-28 18:29] LABS: CA-125 17 U/mL (<35)
== END 2022-03-27 14:41 | disposition home or self-care (01) | DRG 389 ==
LOC: HO.ED 18:28 → HO.EDOVER 20:16 → HO.S3 03-24 13:10
PROVIDERS: Obstetrics & Gynecology; Physician Assistant; Admitting Provider Surgery; Emergency Provider Emergency Medicine Emergency Medical Services; PCP Internal Medicine; Responsible Provider Physician Assistant Medical; Visit Provider Surgery
DX: K56.51 Intestinal adhesions [bands], with partial obstruction (principal); C56.2 Malignant neoplasm of left ovary; K21.9 Gastro-esophageal reflux disease without esophagitis; E03.9 Hypothyroidism, unspecified; I10 Essential (primary) hypertension; F32.9 Major depressive disorder, single episode, unspecified; D64.9 Anemia, unspecified; E11.9 Type 2 diabetes mellitus without complications; Z20.822 Contact with and (suspected) exposure to COVID-19; Z86.73 Personal history of transient ischemic attack (TIA), and cerebral infarction without residual deficits; Z87.891 Personal history of nicotine dependence; Z79.82 Long term (current) use of aspirin; Z79.890 Hormone replacement therapy; Z79.899 Other long term (current) drug therapy
CPT/HCPCS: 0241U; 36415; 71045; 74177; 76830; 76856; 80048; 80076; 81001; 82272; 82947; 83690; 83735; 84484; 85025; 85027; 85610; 86304; 87086; 93005; 93975; 99285; J1170; J1650; J2405; Q9967

== ENCOUNTER 2022-05-21 13:13 | Emergency (ER) | payer MEDICARE, MEDICAID, SELFPAY ==
--- NOTE | ~2022-05-21 | XR_ITS ---
EXAMINATION: XR chest 1V CLINICAL INFORMATION: Reason for Exam sob COMPARISON: Prior chest x-ray 2022 TECHNIQUE: XR chest 1V Tubes and lines: None Lungs and pleura: Both lungs are clear. Heart and mediastinum: The mediastinum is within normal limits.. 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 XR/XR chest 1V IMPRESSION: No radiographic evidence of acute cardiopulmonary disease.
--- NOTE | ~2022-05-21 | CT_ITS ---
EXAMINATION: CT abdomen pelvis wo IV con CLINICAL INFORMATION: Reason for Exam Adnexal mass. Abdominal pain. Urinary symptoms COMPARISON: No prior CT available for comparison. TECHNIQUE: Multidetector volumetric imaging was performed from the superior aspect of the liver through the pubic symphysis 100 mL of Omnipaque 350 injected Sagittal and coronal reformatted images were obtained on the technologist's workstation. This CT examination was performed using dose optimization techniques as appropriate, variously including the following: *Automated exposure control *Adjustment of mA and/or kV according to patient size (this includes techniques or standardized protocols for targeted exams where dose is matched to indication/reason for exam; i.e. extremities or head) *Use of iterative reconstruction technique DLP: 382 mGy-cm FINDINGS: LOWER THORAX: There is a sliding hiatal hernia. Lung bases are clear. HEPATOBILIARY: No focal hepatic lesions. No biliary ductal dilatation. GALLBLADDER: There are layering gallstones. SPLEEN: Spleen is normal in size. PANCREAS: Pancreas is atrophic, no pancreatic mass. STOMACH AND GASTROINTESTINAL TRACT: Stomach is partially decompressed nonopacified. There is no bowel distention or thickening. No CT evidence of appendicitis. There is diverticulosis without evidence of diverticulitis. ADRENALS: No adrenal nodules. KIDNEYS/URETERS: No hydronephrosis, stones or solid mass lesions. URINARY BLADDER: Unopacified and grossly unremarkable. PELVIC VISCERA: There is a large fluid-filled cystic mass in the left side of the pelvis measures 8.1 x 6.5 cm x axially 9.1 cm craniocaudally not well evaluated on this noncontrast study. Most likely of left ovarian origin. This was previously seen and described on recent ultrasound from 03/24/2022. PERITONEUM: No free air or fluid. LYMPH NODES: No lymphadenopathy. VASCULAR:Abdominal aorta normal in size, no aneurysm found. BONES, ABDOMINAL WALL AND SOFT TISSUES: Postsurgical changes anterior abdominal wall hernia mesh repair. CT/CT abdomen pelvis wo IV con IMPRESSION: * Large fluid-filled cystic mass in the left side of the pelvis most likely of left ovarian origin. Not well characterized on today's exam due to lack of contrast previously described as possible complex. This was previously described and described on recent ultrasound from 03/24/2022. Given its size, if not already performed attention to PIZZA BAKER consultation and close imaging surveillance warranted. MRI with IV contrast might be indicated. * Cholelithiasis. * Hiatal hernia. * Sigmoid diverticulosis. * Postsurgical changes anterior abdominal wall hernia mesh repair. (Referring physician staff is being called, by physician staff assistance, to be alerted of the above critical findings and recommendations.) 05/21/2022 4:09 PM
--- NOTE | 2022-05-21 13:14 | ED.ABDPAIN ---
HPI - Abdominal Pain General Chief Complaint: Abdominal Pain Stated Complaint: LOW ABD PAIN X'S MONTHS D/T MASS PER EMS Source: patient and EMS Mode of arrival: EMS History of Present Illness HPI narrative: 77-year-old female with a past medical history of HTN, diet-controlled DM, hypothyroid, SBO, adnexal mass, presenting to the ED via EMS complaining of persistent lower abdominal discomfort x mos, nausea, dysuria, hematuria, chest pain, and shortness of breath x today. Denies fever, chills, cough, fall. Denies change in abdominal pain, states it is just persistent MD elicited complaint: abdominal pain Related Data Home Medications Medication Instructions Recorded Confirmed alendronate 70 mg tablet 70 mg PO CHRISTENSEN@0630 10/13/21 03/23/22 aspirin 81 mg tablet,delayed 81 mg PO DAILY 10/13/21 03/23/22 release (Adult Low Dose Aspirin) atenolol 50 mg tablet 50 mg PO DAILY 10/13/21 03/23/22 atorvastatin 20 mg tablet 20 mg PO DAILY 10/13/21 03/23/22 calcium carbonate 500 mg calcium 500 mg PO DAILY 10/13/21 03/23/22 (1,250 mg) tablet (Oyster Shell Calcium) levothyroxine 88 mcg tablet 88 mcg PO DAILY@0600 10/13/21 03/23/22 omega-3 fatty acids 1,000 mg 1,000 mg PO DAILY 10/13/21 03/23/22 capsule cholecalciferol (vitamin D3) 1,250 1,250 mcg PO CHRISTENSEN@0900 12/22/21 03/23/22 mcg (50,000 unit) capsule nystatin 100,000 unit/gram topical 1 appl topical BID PRN Rash 01/24/22 03/23/22 ointment cholecalciferol (vitamin D3) 50 50 mcg PO DAILY 03/23/22 03/23/22 mcg (2,000 unit) tablet lisinopril 20 mg tablet 1 tab PO DAILY 03/23/22 03/23/22 Previous Rx's Medication Instructions Recorded docusate sodium 100 mg capsule 100 mg PO DAILY #60 caps 03/27/22 (Colace) cefuroxime axetil 250 mg tablet 250 mg PO BID 7 days #14 tabs 05/21/22 Allergies Allergy/AdvReac Type Severity Reaction Status Date / Time propoxyphene [From [place]] Allergy Mild UNKNOWN Verified 01/24/22 13:41 metformin [Metformin] AdvReac Mild DIARRHEA, Verified 01/24/22 13:41 RASH Review of Systems Review of Systems Constitutional: No Fever, No Chills, No Fatigue, No Malaise ENT/Mouth: No Hearing loss, No Ear Pain, No Nasal Congestion, No Hoarseness, No sore throat, No Rhinorrhea, No Swallowing Difficulty Eyes: No Eye Pain, No Swelling, No Redness, No Vision Changes Cardiovascular: + Chest Pain, + SOB, No Dyspnea on Exertion, No Orthopnea, No Edema, No Palpitations Respiratory: No Cough, No Sputum, No Dyspnea Gastrointestinal: + Nausea, No Vomiting, No Diarrhea, No Constipation, + Abdominal pain Genitourinary: No irregular bleeding, + Dysuria, No Urinary Frequency, + Hematuria, No Flank Pain, No Urinary Flow Changes, No Hesitancy Musculoskeletal: No joint pain, No Myalgias, No Joint Swelling Skin: No Skin Lesions, No rash Neuro: No Weakness, No Dizziness, No Headache Yes all other systems are reviewed and are negative Constitutional: Reports as per [facility] Past Medical History Attestation statement: The following information was validated with the patient. Medical History Adult failure to thrive GERD (gastroesophageal reflux disease) Hernia High blood pressure Hypertension Hypothyroidism Intellectual disability Ischemic stroke Major depressive disorder Occult GI bleeding Osteoporosis Type 2 diabetes mellitus Surgical History History of rectal surgery Social History Social History Household Members: None Housing: House Housing Other:: hotel Do you presently have visiting nurse or other home services: Yes (service net) Alcohol intake: never Patient Tobacco Use Status: Former Tobacco user Quit Date: 10+ years ago Tobacco use type: Cigarette Second Hand Smoke Exposure: No Advance Directives: No service: No Current occupational status: retired and disabled Physical Exam ED Vital Signs: Vital Signs - 24 hr 05/21/22 13:22 05/21/22 15:39 Temperature 97.8 F 97.9 F Pulse Rate 84 65 Respiratory Rate 20 20 Blood Pressure 128/66 125/74 Pulse Oximetry 96 95 Oxygen Delivery Method Room Air BMI result Body Mass Index 19.5 Const General: cooperative, healthy appearing and no acute distress Orientation/consciousness: patient oriented x3 Limitations: no limitations HENMT Head: Yes normal to inspection and Yes atraumatic Ears: hearing grossly normal bilaterally General nose exam: Normal external nose present Face and sinus: Yes normal facial exam Eyes General: appearance normal, both eyes and all related structures EOM: EOMs intact bilaterally Neck Neck: Yes normal visual inspection and Yes no meningeal signs Resp Effort & Inspection: normal respiratory effort and no respiratory distress Auscultation: clear to auscultation bilaterally, no rhonchi and no wheezes Cardio Rate: regular rate Heart sounds: S1 normal heart sound present and S2 normal heart sound present GI Inspection: Yes normal to inspection Palpation (GI): Soft to palpation, Tenderness to palpation present (GI) suprapubicly; with no rebound tenderness, no guarding and not rigid General: Yes no CVA tenderness Back/Spine/Pelvis Back: no CVA tenderness Skin Rashes: no rashes Wounds: no wounds Neuro General: patient oriented x3, tone normal, moves all extremities and no meningeal signs Extrem General: Yes normal to inspection and Yes no pedal edema Course Course Course Narrative: -1515--no leukocytosis. H&H at patient's baseline. Initial troponin negative > will obtain 3 hour repeat. Labs otherwise reassuring -UA contaminated however patient is symptomatic > will treat with IV Rocephin XR chest 1V IMPRESSION: No radiographic evidence of acute cardiopulmonary disease. CT abdomen pelvis wo IV con IMPRESSION: *? Large fluid-filled cystic mass in the left side of the pelvis most likely of left ovarian origin. Not well characterized on today's exam due to lack of contrast previously described as possible complex. This was previously described and described on recent ultrasound from 03/24/2022. Given its size, if not already performed attention to JUICE WEIGHER consultation and close imaging surveillance warranted. MRI with IV contrast might be indicated. *? Cholelithiasis. *? Hiatal hernia. *? Sigmoid diverticulosis. *? Postsurgical changes anterior abdominal wall hernia mesh repair. >1740--repeat troponin without rise, DE unlikely Results discussed with patient including worrisome signs and symptoms and strict return precautions, and when to return to the emergency department. They verbalized understanding and feel safe for discharge at this time. Medical Decision Making Medical Decision Making MDM Narrative: 77-year-old female with a past medical history of HTN, diet-controlled DM, hypothyroid, SBO, adnexal mass, presenting to the ED via EMS complaining of persistent lower abdominal discomfort x mos, nausea, dysuria, hematuria, chest pain, and shortness of breath x today. On exam vital signs stable, NAD, nontoxic appearing, lungs CTA, abdomen soft with suprapubic tenderness, no rebound or guarding, no pedal edema. Concern for acute on chronic abdominal pain from known mouth vs ACS vs pneumonia vs UTI or appendicitis/diverticulitis. Lower suspicion for PE at this time without tachycardia or hypoxia. Plan: EKG, labs, UA, CXR, CT AP, Zofran, reassess Please refer to course for remaining clinical decision making, interpretation of labs/imaging results, and discussions with consultants and/or family members. Differential Diagnosis Differential Diagnoses: The differential diagnosis associated with the presentation includes As above Admission/Observation Consideration of admission/observation: Escalation of care including admission/observation considered Lab Data [facility] Lab Attestation statement: I reviewed the patient's lab results. 05/21/22 14:17 05/21/22 13:46 Labs: Lab Results 05/21/22 05/21/22 05/21/22 Range/Units 13:37 13:46 13:46 WBC (4.8-10.8) X10*3/uL RBC (4.20-5.50) X10*6/uL Hgb (12.0-16.0) g/dl Hct (37.0-47.0) % MCV (80.0-98.0) fL MCH (27.0-33.0) pg MCHC (31.0-35.0) g/dl RDW (11.0-16.0) % Plt Count (160-400) X10*3/uL MPV (9.4-12.3) fL Immature Gran % (Auto) (0.0-0.4) % Neut % (Auto) (45-73) % Lymph % (Auto) (20-40) % [place] % (Auto) (2-11) % Eos % (Auto) (0-4) % Baso % (Auto) (0-2) % Lymph # (Auto) (1.2-4.9) X10*3/uL [place] # (Auto) (0.1-1.2) X10*3/uL Eos # (Auto) (0.0-0.4) X10*3/uL Baso # (Auto) (0.0-0.2) X10*3/uL Abs Immat Gran (auto) (0.00-0.03) X10*3/uL Absolute Neuts (auto) (2.0-8.3) x10*3/uL Absolute Nucleated RBC (0.0-0.012) X10*3/uL Nucleated RBC % (auto) (0.0-0.2) /100WBC Sodium 142 (135-145) mmol/L Potassium 4.2 D (3.3-5.1) mmol/L Chloride 110 H (96-108) mmol/L Carbon Dioxide 24 (22-29) mmol/L Anion Gap 12 (12-20) BUN 10 (9-16) mg/dL Creatinine 0.55 (0.5-1.4) mg/dL Estim Creat Clear Calc 66.4 Estimated GFR > 60 Random Glucose 138 H (60-115) mg/dL Calcium 9.0 D (8.4-10.2) mg/dL Magnesium 2.0 (1.6-2.6) mg/dL Total Bilirubin 0.4 (0.0-1.0) mg/dL Direct Bilirubin < 0.2 (0.0-0.5) mg/dL AST 23 (5-31) U/L ALT 13 (0-31) U/L Alkaline Phosphatase 60 (39-117) U/L Troponin I High Sens 3.6 (<3.5-17.0) ng/L Total Protein 5.9 L (6.5-8.0) g/dL Albumin 3.8 (3.5-5.0) g/dL Lipase 18 (8-78) U/L Urine Color Urine Appearance Urine pH (5.0-9.0) Ur Specific [place] (1.005-1.025) Urine Protein (Neg-Trace) mg/dL Urine Glucose (UA) (Negative) mg/dL Urine Ketones (Negative) mg/dL Urine Blood (Negative) Urine Nitrite (Negative) Ur Leukocyte Esterase (Negative) Urine RBC (0-2) /HPF Urine WBC (0-5) /HPF Ur Squamous Epith Cells (0-2) /HPF Urine Bacteria (None Seen) Hyaline Casts (0-2) /LPF COVID-19 (MIKKI) Negative (Negative) COVID-19 Clin Com See Note 05/21/22 05/21/22 05/21/22 Range/Units 14:02 14:17 17:06 WBC 6.3 (4.8-10.8) X10*3/uL RBC 4.16 L (4.20-5.50) X10*6/uL Hgb 9.6 L (12.0-16.0) g/dl Hct 30.9 L (37.0-47.0) % MCV 74.3 L (80.0-98.0) fL MCH 23.1 L (27.0-33.0) pg MCHC 31.1 (31.0-35.0) g/dl RDW 15.4 (11.0-16.0) % Plt Count 229 (160-400) X10*3/uL MPV 10.3 (9.4-12.3) fL Immature Gran % (Auto) 0.0 (0.0-0.4) % Neut % (Auto) 61.1 (45-73) % Lymph % (Auto) 23.5 (20-40) % [place] % (Auto) 6.9 (2-11) % Eos % (Auto) 8.0 H (0-4) % Baso % (Auto) 0.5 (0-2) % Lymph # (Auto) 1.5 (1.2-4.9) X10*3/uL [place] # (Auto) 0.4 (0.1-1.2) X10*3/uL Eos # (Auto) 0.5 H (0.0-0.4) X10*3/uL Baso # (Auto) 0.0 (0.0-0.2) X10*3/uL Abs Immat Gran (auto) 0.00 (0.00-0.03) X10*3/uL Absolute Neuts (auto) 3.8 (2.0-8.3) x10*3/uL Absolute Nucleated RBC 0.000 (0.0-0.012) X10*3/uL Nucleated RBC % (auto) 0.0 (0.0-0.2) /100WBC Sodium (135-145) mmol/L Potassium (3.3-5.1) mmol/L Chloride (96-108) mmol/L Carbon Dioxide (22-29) mmol/L Anion Gap (12-20) BUN (9-16) mg/dL Creatinine (0.5-1.4) mg/dL Estim Creat Clear Calc Estimated GFR Random Glucose (60-115) mg/dL Calcium (8.4-10.2) mg/dL Magnesium (1.6-2.6) mg/dL Total Bilirubin (0.0-1.0) mg/dL Direct Bilirubin (0.0-0.5) mg/dL AST (5-31) U/L ALT (0-31) U/L Alkaline Phosphatase (39-117) U/L Troponin I High Sens 4.0 (<3.5-17.0) ng/L Total Protein (6.5-8.0) g/dL Albumin (3.5-5.0) g/dL Lipase (8-78) U/L Urine Color Yellow Urine Appearance Cloudy Urine pH 7.5 (5.0-9.0) Ur Specific [place] <= 1.005 (1.005-1.025) Urine Protein Negative (Neg-Trace) mg/dL Urine Glucose (UA) Negative (Negative) mg/dL Urine Ketones Negative (Negative) mg/dL Urine Blood Small (1+) H (Negative) Urine Nitrite Negative (Negative) Ur Leukocyte Esterase Large (3+) H (Negative) Urine RBC 0-2 (0-2) /HPF Urine WBC 21-50 (0-5) /HPF Ur Squamous Epith Cells 6-10 (0-2) /HPF Urine Bacteria Trace (None Seen) Hyaline Casts 0-2 (0-2) /LPF COVID-19 (MIKKI) (Negative) COVID-19 Clin Com Radiology Impression Discussion of test interpretation with radiology: I have reviewed the radiologist's reading. External Record Review External record reviewed: Inpatient record, Office record, Outpatient record, Prior outpatient labs, Prior outpatient radiology, Primary care record and Outside ED record Medications Administered Discontinued Medications Generic Name Dose Route Start Last Admin Trade Name Freq PRN Reason Stop Dose Admin Ceftriaxone Sodium 1 gm/ 50 mls @ 100 mls/hr 05/21/22 15:17 05/21/22 16:39 Sodium Chloride IV 05/21/22 15:46 Infused ONCE ONE Infusion Ondansetron HCl 4 mg 05/21/22 13:24 05/21/22 14:00 Ondansetron Hcl 4 Mg/2 Ml Vial IVPUSH 05/21/22 13:25 4 mg ONCE ONE Administration Discharge Plan Discharge Clinical Impression: Acute UTI, Adnexal mass, Abdominal pain Patient Disposition: Home, Self-Care Instructions: Urinary Tract Infection in Women (DC), Abdominal Pain (ED) Additional Instructions: You have a urinary tract infection. On Ceftin is an antibiotic please take as prescribed Your blood work is otherwise unremarkable. Her CT scan redemonstrates your known mass Please follow-up with your OBGYN/PCP in this regard. If symptoms persist or worsen return to the ED Prescriptions: New cefuroxime axetil 250 mg tablet 250 mg PO BID 7 Days Qty: 14 0RF No Action nystatin 100,000 unit/gram ointment 1 appl topical BID PRN (Reason: Rash) Rx Instructions: Apply to rash under breasts twice a day for 2 weeks lisinopril 20 mg tablet 1 tab PO DAILY cholecalciferol (vitamin D3) 50 mcg (2,000 unit) Tablet 50 mcg PO DAILY docusate sodium [Colace] 100 mg capsule 100 mg PO DAILY Qty: 60 2RF atorvastatin 20 mg tablet 20 mg PO DAILY levothyroxine 88 mcg tablet 88 mcg PO DAILY@0600 omega-3 fatty acids 1,000 mg capsule 1,000 mg PO DAILY alendronate 70 mg tablet 70 mg PO CHRISTENSEN@0630 atenolol 50 mg tablet 50 mg PO DAILY aspirin [Adult Low Dose Aspirin] 81 mg tablet,delayed release (DR/EC) 81 mg PO DAILY calcium carbonate [Oyster Shell Calcium] 500 mg calcium (1,250 mg) tablet 500 mg PO DAILY cholecalciferol (vitamin D3) 1,250 mcg (50,000 unit) capsule 1,250 mcg PO CHRISTENSEN@0900 Referrals: Sangeetha Sage MD [Primary Care Provider] - 3 days
[2022-05-21 13:21] VITALS: BP 140/80; PULSE 82; O2SAT 90
[2022-05-21 13:22] VITALS: BP 128/66; PULSE 84; RESP 20; TEMP 36.6; O2SAT 96; BMI 19.5
[2022-05-21 13:56] LABS: COVID-19 Test Negative (Negative); IDNOW Serial# 08D9AD1C
[2022-05-21] MEDS: ondansetron HCL 4 MG/2 ML VIAL IVPUSH (14:00)
--- NOTE | 2022-05-21 14:02 | PC.NURSE ---
pt AOx3, reporting abd pain and dysuria. Medicated for nausea. labs sent
[2022-05-21 14:09] LABS: Appearance Urine Cloudy; Color Urine Yellow; Glucose Urine UA Negative (Negative); Leukocyte Esterase Urine Large (3+) (Negative); Nitrite Urine Negative (Negative); PH 7.5 (5.0-9.0); Specific Gravity - Urine <= 1.005 (1.005-1.025); UMIC TRIGGER UACC YES; Urine Blood Small (1+) (Negative); Urine Ketones Negative (Negative); Urine Protein Negative (Neg-Trace)
[2022-05-21 14:16] LABS: Bacteria Urine Trace (None Seen); Hyaline Casts Urine 0-2 /LPF (0-2); RBC Urine 0-2 /HPF (0-2); UACC Culture Trigger YES; WBC Urine 21-50 /HPF (0-5)
[2022-05-21 14:21] LABS: MANUAL DIFF FLAG NO
[2022-05-21 14:23] LABS: Basophils Percent Auto 0.5 % (0-2); Eosinophils Absolute Auto 0.5 X10*3/uL (0.0-0.4); Hematocrit 30.9 % (37.0-47.0); Hemoglobin 9.6 g/dl (12.0-16.0); Lymphocytes Absolute Auto 1.5 X10*3/uL (1.2-4.9); Lymphocytes Percent Auto 23.5 % (20-40); Mean Corpuscular HGB Conc 31.1 g/dl (31.0-35.0); Mean Corpuscular Hemoglobin 23.1 pg (27.0-33.0); Mean Corpuscular Volume 74.3 fL (80.0-98.0); Mean Platelet Volume 10.3 fL (9.4-12.3); Monocytes Absolute Auto 0.4 X10*3/uL (0.1-1.2); Monocytes Percent Auto 6.9 % (2-11); Neutrophils Absolute Auto 3.8 x10*3/uL (2.0-8.3); Neutrophils Percent Auto 61.1 % (45-73); Platelet Count 229 X10*3/uL (160-400); Red Blood Count 4.16 X10*6/uL (4.20-5.50); Red Cell Distribution Width 15.4 % (11.0-16.0); White Blood Count 6.3 X10*3/uL (4.8-10.8)
--- NOTE | 2022-05-21 14:26 | MHC.EDTECH ---
Patient was able to Urinate without any difficulties. I spoke with Allison, and she stated No the Bladder scan isn't necessary, if she's able to urinate. - All set
[2022-05-21 14:46] LABS: Troponin-I High Sensitivity 3.6 ng/L (<3.5-17.0)
[2022-05-21 14:58] LABS: Alanine Aminotransferase 13 U/L (0-31); Albumin Level 3.8 g/dL (3.5-5.0); Alkaline Phosphatase 60 U/L (39-117); Anion Gap 12 (12-20); Aspartate Amino Transferase 23 U/L (5-31); Bilirubin Direct < 0.2 mg/dL (0.0-0.5); Bilirubin Total 0.4 mg/dL (0.0-1.0); Blood Urea Nitrogen 10 mg/dL (9-16); Carbon Dioxide 24 mmol/L (22-29); Chloride 110 mmol/L (96-108); Creatinine Clr Calc Pharmacy 66.4; Estimated Glomerular Filt Rate > 60; Glucose Random 138 mg/dL (60-115); Lipase 18 U/L (8-78); Potassium 4.2 mmol/L (3.3-5.1); Sodium 142 mmol/L (135-145); Total Protein 5.9 g/dL (6.5-8.0)
[2022-05-21 15:39] VITALS: BP 125/74; PULSE 65; RESP 20; TEMP 36.6; O2SAT 95
[2022-05-21] MEDS: cefTRIAXone sodium 1 GM in 0.9 % Sodium Chloride 50 ML IV (15:58)
--- NOTE | 2022-05-21 16:00 | PC.NURSE ---
patient a&ox2, vss, ekg monitor sinus lexy, pt iv abx started per order- per provider no blood cultures needed, family at bedside, call laird within reach, will continue to monitor
--- NOTE | 2022-05-21 16:07 | PC.NURSE ---
SERVICE NET STAFF (GENEVIEVE [phone]). Call with any questions.
== END 2022-05-21 18:28 | disposition home or self-care (01) ==
PROVIDERS: Physician Assistant; Emergency Provider Emergency Medicine; PCP Internal Medicine
DX: N39.0 Urinary tract infection, site not specified (principal); R19.09 Other intra-abdominal and pelvic swelling, mass and lump; R10.9 Unspecified abdominal pain; Z20.822 Contact with and (suspected) exposure to COVID-19; E11.9 Type 2 diabetes mellitus without complications; I10 Essential (primary) hypertension; Z79.02 Long term (current) use of antithrombotics/antiplatelets; Z79.82 Long term (current) use of aspirin; Z79.899 Other long term (current) drug therapy
CPT/HCPCS: 36415; 51798; 71045; 74176; 80048; 80076; 81001; 83690; 83735; 84484; 85025; 87086; 87635; 96365; 96375; 99284; J0696; J2405

== ENCOUNTER → 2022-06-15 09:35 | Outpatient (BNVA) | payer MEDICARE, MEDICAID, SELFPAY | PROVIDERS: PCP Internal Medicine; Visit Provider Physician Assistant | DX: M17.31 Unilateral post-traumatic osteoarthritis, right knee (principal); T14.90XS Injury, unspecified, sequela | CPT/HCPCS: 99212 ==

== ENCOUNTER 2022-06-17 07:50 | Emergency (ER) | payer MEDICARE, MEDICAID, SELFPAY ==
[2022-06-17 08:03] VITALS: BP 175/78; PULSE 57; RESP 16; TEMP 36.8; O2SAT 100; BMI 19.7
[2022-06-17 08:36] LABS: Appearance Urine Clear; Color Urine Yellow; Glucose Urine UA Negative (Negative); Leukocyte Esterase Urine Large (3+) (Negative); Nitrite Urine Negative (Negative); Specific Gravity - Urine <= 1.005 (1.005-1.025); UMIC TRIGGER UACC YES; Urine Blood Negative (Negative); Urine Ketones Negative (Negative); Urine Protein Negative (Neg-Trace)
[2022-06-17 08:38] LABS: Bacteria Urine None Seen (None Seen); Hyaline Casts Urine 0-2 /LPF (0-2); RBC Urine 0-2 /HPF (0-2); UACC Culture Trigger YES
--- NOTE | 2022-06-17 08:38 | ED_ITS ---
HPI - General Adult General Chief complaint: General Medical Stated complaint: rash Time Seen by Provider: 06/17/22 08:12 Source: patient Mode of arrival: ambulatory Limitations: no limitations History of Present Illness HPI narrative: This is a 77 years old female presented to the emergency department with 2 compl aints one is dysuria and frequency and the other one is a rash of the face and neck. The rash has been ongoing for at least 2 months is in the face and the neck, she was given by the PCP topical steroids without any improvement. The patient has also history of hypertension, type 2 diabetes, hypothyroidism a, small-bowel obstruction Onset (ago): day(s) Location: head, face and neck Radiation: non-radiation Severity: mild Quality: burning Pain Consistency: constant Relieving factors: none Exacerbating factors: none Related Data Home Medications Medication Instructions Recorded Confirmed alendronate 70 mg tablet 70 mg PO CHRISTENSEN@0630 10/13/21 03/23/22 aspirin 81 mg tablet,delayed 81 mg PO DAILY 10/13/21 03/23/22 release (Adult Low Dose Aspirin) atenolol 50 mg tablet 50 mg PO DAILY 10/13/21 03/23/22 atorvastatin 20 mg tablet 20 mg PO DAILY 10/13/21 03/23/22 calcium carbonate 500 mg calcium 500 mg PO DAILY 10/13/21 03/23/22 (1,250 mg) tablet (Oyster Shell Calcium) levothyroxine 88 mcg tablet 88 mcg PO DAILY@0600 10/13/21 03/23/22 omega-3 fatty acids 1,000 mg 1,000 mg PO DAILY 10/13/21 03/23/22 capsule cholecalciferol (vitamin D3) 1,250 1,250 mcg PO CHRISTENSEN@0900 12/22/21 03/23/22 mcg (50,000 unit) capsule nystatin 100,000 unit/gram topical 1 appl topical BID PRN Rash 01/24/22 03/23/22 ointment cholecalciferol (vitamin D3) 50 50 mcg PO DAILY 03/23/22 03/23/22 mcg (2,000 unit) tablet lisinopril 20 mg tablet 1 tab PO DAILY 03/23/22 03/23/22 Previous Rx's Medication Instructions Recorded docusate sodium 100 mg capsule 100 mg PO DAILY #60 caps 03/27/22 (Colace) cefuroxime axetil 250 mg tablet 250 mg PO BID 7 days #14 tabs 05/21/22 ibuprofen 800 mg tablet 800 mg PO Q8H PRN pain 30 days #90 06/15/22 tabs prednisone 20 mg tablet 20 mg PO DAILY #4 tabs 06/17/22 Allergies Allergy/AdvReac Type Severity Reaction Status Date / Time propoxyphene [From Darvon] Allergy Mild UNKNOWN Verified 06/17/22 08:07 metformin [Metformin] AdvReac Mild DIARRHEA, Verified 06/17/22 08:07 RASH Review of Systems Constitutional: Constitutional: Reports no additional constitutional complaints Cardiovascular: Cardiovascular: Reports no additional cardiovascular complaints [facility] Past Medical History Medical History Adult failure to thrive GERD (gastroesophageal reflux disease) Hernia High blood pressure Hypertension Hypothyroidism Intellectual disability Ischemic stroke Major depressive disorder Occult GI bleeding Osteoporosis Type 2 diabetes mellitus Surgical History History of rectal surgery Social History Social History Household Members: None Housing: House Housing Other:: hotel Do you presently have visiting nurse or other home services: Yes (service net) Alcohol intake: never Patient Tobacco Use Status: Former Tobacco user Quit Date: 10+ years ago Tobacco use type: Cigarette Smoked in Last 30 Days: No Second Hand Smoke Exposure: No Use of substances other than those prescribed or required for medical reasons: No Advance Directives: No Advance Directives Information Provided: Yes service: No Current occupational status: retired and disabled Physical Exam ED Vital Signs: Vital Signs - 24 hr 06/17/22 08:03 Temperature 98.2 F Pulse Rate 57 Respiratory Rate 16 Blood Pressure 175/78 H Pulse Oximetry 100 Oxygen Delivery Method Nasal Cannula BMI result Body Mass Index 19.7 Const Other: She looks well she has no toxic-appearing General: cooperative, comfortable and well developed Nutritional Appearance: average body habitus Orientation/consciousness: patient oriented x3 Limitations: no limitations HENMT Other: She has erythematosus macular rash in the face and neck, no hives seen no petechiae seen Head: Yes normal to inspection General nose exam: Other nasal findings present (Oropharynx shows no lesions) Face and sinus: Yes normal facial exam Neck Neck: Yes normal visual inspection Chest Chest palpation & inspection: normal inspection of the chest Resp Effort & Inspection: normal respiratory effort Auscultation: clear to auscultation bilaterally Cardio Jugular venous distension: no JVD Rate: regular rate Rhythm: regular rhythm GI Inspection: Yes normal to inspection Palpation (GI): Soft to palpation, not firm and nontender Auscultation: normal bowel sounds Skin Other: General skin exam: elasticity normal and turgor normal Rashes: rashes noted (face and neck) Neuro General: patient oriented x3 Course Course Course Narrative: Urine was noted she has a few white cell in the urine however she has no bacteria no nitrates therefore I elected to wait for the culture result, as far as the rash goes patient has an appointment with the manager statistical programming coming up I will give a few dose of p.o. prednisone, I will avoid antihistamine because their age of [id number] years old the possible side effects including drowsiness and urinary retention Medical Decision Making Medical Decision Making MDM Narrative: presented with rash and dysuria Differential Diagnosis Differential Diagnoses: The differential diagnosis associated with the presentation includes Kiel Fernando/Pemfigo/allergic reacion/meds side effect Admission/Observation Consideration of admission/observation: Escalation of care including admission/observation considered Lab Data MDM Lab Attestation statement: I reviewed the patient's lab results. Labs: Lab Results 06/17/22 Range/Units 08:28 Urine Color Yellow Urine Appearance Clear Urine pH 7.0 (5.0-9.0) Ur Specific [place] <= 1.005 (1.005-1.025) Urine Protein Negative (Neg-Trace) mg/dL Urine Glucose (UA) Negative (Negative) mg/dL Urine Ketones Negative (Negative) mg/dL Urine Blood Negative (Negative) Urine Nitrite Negative (Negative) Ur Leukocyte Esterase Large (3+) H (Negative) Urine RBC 0-2 (0-2) /HPF Urine WBC 6-10 H (0-5) /HPF Ur Squamous Epith Cells 3-5 (0-2) /HPF Urine Bacteria None Seen (None Seen) Hyaline Casts 0-2 (0-2) /LPF Chronic Conditions HTN/hypothyroididm Discharge Plan Discharge Clinical Impression: Rash, Dysuria Patient Disposition: Home, Self-Care Instructions: Acute Rash (ED), Dysuria (ED) Additional Instructions: Follow-up with your manager statistical programming as schedule, we called for you 4 days worth of prednisone to [facility] , so far as the urine will send the urine cultures the labs will call you if the urine is positive for infection Prescriptions: New prednisone 20 mg tablet 20 mg PO DAILY Qty: 4 0RF No Action nystatin 100,000 unit/gram ointment 1 appl topical BID PRN (Reason: Rash) Rx Instructions: Apply to rash under breasts twice a day for 2 weeks lisinopril 20 mg tablet 1 tab PO DAILY cholecalciferol (vitamin D3) 50 mcg (2,000 unit) Tablet 50 mcg PO DAILY docusate sodium [Colace] 100 mg capsule 100 mg PO DAILY Qty: 60 2RF cefuroxime axetil 250 mg tablet 250 mg PO BID 7 Days Qty: 14 0RF atorvastatin 20 mg tablet 20 mg PO DAILY levothyroxine 88 mcg tablet 88 mcg PO DAILY@0600 omega-3 fatty acids 1,000 mg capsule 1,000 mg PO DAILY alendronate 70 mg tablet 70 mg PO CHRISTENSEN@0630 atenolol 50 mg tablet 50 mg PO DAILY aspirin [Adult Low Dose Aspirin] 81 mg tablet,delayed release (DR/EC) 81 mg PO DAILY calcium carbonate [Oyster Shell Calcium] 500 mg calcium (1,250 mg) tablet 500 mg PO DAILY cholecalciferol (vitamin D3) 1,250 mcg (50,000 unit) capsule 1,250 mcg PO CHRISTENSEN@0900 ibuprofen 800 mg tablet 800 mg PO Q8H PRN (Reason: pain) 30 Days Qty: 90 3RF
--- NOTE | 2022-06-17 09:17 | PC.NURSE ---
PT EVALUATED BY PROVIDER. AWARE AND AGREEABLE TO DC PLAN. STATES NO QUESTIONS.
== END 2022-06-17 09:20 | disposition home or self-care (01) ==
PROVIDERS: Emergency Provider Emergency Medicine; PCP Internal Medicine
DX: R21 Rash and other nonspecific skin eruption (principal); R30.0 Dysuria; Z79.899 Other long term (current) drug therapy
CPT/HCPCS: 81001; 87086; 99283; 99284

== ENCOUNTER → 2022-07-20 11:12 | Outpatient (BNVA) | payer MEDICARE, MEDICAID, SELFPAY | PROVIDERS: PCP Internal Medicine; Visit Provider Physician Assistant | DX: M17.31 Unilateral post-traumatic osteoarthritis, right knee (principal); T14.90XS Injury, unspecified, sequela | CPT/HCPCS: 99212 ==

== ENCOUNTER 2022-08-07 12:07 | Inpatient (IN) | payer MEDICARE, MEDICAID, SELFPAY ==
[2022-08-07] VITALS (14 sets, daily range): BP systolic 118–188; BP diastolic 60–109; PULSE 66–80; RESP 15–27; TEMP 36.6–36.8; O2SAT 93–100; BMI 20.9
--- NOTE | ~2022-08-07 | MR_ITS ---
EXAMINATION: BRAIN MRI WITHOUT CONTRAST CLINICAL INFORMATION: Brainstem stroke. Given tPA. COMPARISON: CT angiogram of the head and neck 08/07/2022. TECHNIQUE: Multiplanar MR imaging of the brain was performed without contrast. FINDINGS: There are numerous foci of T2 FLAIR signal hyperintensity throughout the periventricular white matter and cal as well as a few small chronic lacunar infarcts for instance within the right centrum semiovale and left thalamus. No acute territorial infarct. No pathological magnetic susceptibility artifact. Intracranial vascular flow voids are maintained. There is no intracranial mass effect or midline shift. No abnormal extra-axial collection. Lateral and third ventricles are normal. No hydrocephalus. Midline structures including the cervicomedullary junction are normal. No acute bone marrow signal changes. There is no mastoid middle ear effusion. Mild to moderate paranasal sinus disease primarily affecting the ethmoid air cells. Globes and orbits are symmetric. MR/MR head/brain wo con IMPRESSION: There are numerous chronic small vessel ischemic changes within the periventricular white matter and cal. A few small chronic within infarcts are also visualized for instance within the right centrum semiovale and left thalamus. No evidence of acute territorial infarct or hemorrhage.
--- NOTE | ~2022-08-07 | CT_ITS ---
EXAMINATION: CT ANGIOGRAM HEAD CT ANGIOGRAM NECK CLINICAL INFORMATION: Headache. Stroke. Status post TPA. COMPARISON: CT head from 08/07/2022 and 01/07/2022. CT chest from 09/28/2019. TECHNIQUE: Initial noncontrast behavioral analyst imaging of the head and neck was performed. Noncontrast head CT was also performed. Test bolus sequences followed by intravenous administration 70 mL of Omnipaque 350. Helical imaging was performed in the axial plane from the aortic arch to the skull vertex. Delayed postcontrast imaging of the head was also performed. The data was processed at the apparatus engineering technologist's workstation for generation of MIP sequences. Angled MIPs and volume rendered reformatted images were also generated at an offline 3D workstation. Stenoses are assessed in accordance with NASCET criteria unless otherwise indicated. This CT examination was performed using dose optimization techniques as appropriate, variously including the following: *Automated exposure control. *Adjustment of mA and/or kV according to patient size (this includes techniques or standardized protocols for targeted exams where dose is matched to indication/reason for exam; i.e. extremities or head). *Use of iterative reconstruction technique. DLP: 1834 mGy-cm FINDINGS: CT Head: There is no evidence of acute intracranial hemorrhage. Chronic lacunar infarcts of the right pemberton radiata, right caudate head, and left thalamus. No new loss of oviedo-white matter differentiation. Confluent hypoattenuation in the periventricular and deep white matter. Proportional prominence of the ventricles and sulcal spaces without evidence of obstructive hydrocephalus. No abnormal mass effect or midline shift. No extra-axial fluid collections. No pathologic intra-axial enhancement. No acute soft tissue or osseous abnormalities. Mild mucosal thickening of the paranasal sinuses. The mastoid air cells and middle ear cavities are clear. Bilateral lens extractions. CT Neck: The thyroid gland is atrophic. Nonspecific 1.5 cm peripherally calcified lesion in the left thyroid bed (0.8 cm in 2008). The remaining cervical soft tissues are within normal limits. Moderate multilevel degenerative spondylosis arthropathy of the cervical spine. CT Upper Chest: The visualized lung apices and upper mediastinum are within normal limits. Neck CTA: Mildly motion degraded exam. Aortic Arch: Normal contour and caliber with mild calcific atherosclerotic disease. Classic 3 vessel branching pattern of the aortic arch. Great Vessel Origins: No significant stenosis of the branch origins. Right Common Carotid Artery: No focal stenosis or occlusion. Cervical Right Internal Carotid Artery: Calcific atherosclerotic disease of the carotid bulb and proximal internal carotid artery causing less than 50% stenosis. Left Common Carotid Artery: No focal stenosis or occlusion. Cervical Left Internal Carotid Artery: Mild calcific atherosclerotic disease of the carotid bulb and proximal internal carotid artery without flow-limiting stenosis. Cervical Right Vertebral Artery: Mildly dominant. No focal stenosis or occlusion. Cervical Left Vertebral Artery: No focal stenosis or occlusion. Brain CTA: Intracranial Internal Carotid Arteries: Calcific atherosclerotic disease of the intracranial internal carotid arteries without occlusion or flow-limiting stenosis. Right Anterior Cerebral Artery: Normal A1 segment. Normal opacification of the distal GIOVANNA segments. Left Anterior Cerebral Artery: Normal A1 segment. Normal opacification of the distal GIOVANNA segments. Anterior Communicating Artery: Normal. Right Middle Cerebral Artery: Normal M1 segment of the MCA without focal stenosis or occlusion. Normal arborization of the distal segments. Left Middle Cerebral Artery: Normal M1 segment of the MCA without focal stenosis or occlusion. Normal arborization of the distal segments. Right Vertebral Artery: Normal V4 segment. Normal opacification of the proximal segments of the posterior inferior cerebellar artery. Left Vertebral Artery: Normal V4 segment. Normal opacification of the proximal segments of the posterior inferior cerebellar artery. Basilar Artery: Normal without focal stenosis or occlusion. Normal appearance of the proximal superior cerebellar arteries. Right Posterior Cerebral Artery: Normal P1 segment. Normal opacification of the distal PHYSIOLOGIST segments. Left Posterior Cerebral Artery: Normal P1 segment. Normal opacification of the distal PHYSIOLOGIST segments. Normal opacification of the superior sagittal, straight, transverse, and sigmoid sinuses. CT/CT head/brain wo IV con IMPRESSION: 1. No evidence of acute intracranial hemorrhage or edematous territorial infarction. 2. CTA of the head and neck without proximal occlusion or flow-limiting stenosis. 3. Extensive underlying microangiopathy and generalized cerebral volume loss. Chronic lacunar infarcts of the deep nuclei. 4. Nonspecific 1.5 cm peripherally calcified lesion in the left thyroid bed. If clinically indicated, this could be further characterized with thyroid ultrasound. This critical result was discussed with Dr. Walker at 15:55 on 09/06/2022 and it was ascertained that the content and urgency of the report was understood at the time of direct communication.
--- NOTE | ~2022-08-07 | CT_ITS ---
EXAMINATION: CT ANGIOGRAM HEAD CT ANGIOGRAM NECK CLINICAL INFORMATION: Headache. Stroke. Status post TPA. COMPARISON: CT head from 08/07/2022 and 01/07/2022. CT chest from 09/28/2019. TECHNIQUE: Initial noncontrast telegraphic typewriter operator imaging of the head and neck was performed. Noncontrast head CT was also performed. Test bolus sequences followed by intravenous administration 70 mL of Omnipaque 350. Helical imaging was performed in the axial plane from the aortic arch to the skull vertex. Delayed postcontrast imaging of the head was also performed. The data was processed at the mining engineering technologist's workstation for generation of MIP sequences. Angled MIPs and volume rendered reformatted images were also generated at an offline 3D workstation. Stenoses are assessed in accordance with NASCET criteria unless otherwise indicated. This CT examination was performed using dose optimization techniques as appropriate, variously including the following: *Automated exposure control. *Adjustment of mA and/or kV according to patient size (this includes techniques or standardized protocols for targeted exams where dose is matched to indication/reason for exam; i.e. extremities or head). *Use of iterative reconstruction technique. DLP: 1834 mGy-cm FINDINGS: CT Head: There is no evidence of acute intracranial hemorrhage. Chronic lacunar infarcts of the right pemberton radiata, right caudate head, and left thalamus. No new loss of oviedo-white matter differentiation. Confluent hypoattenuation in the periventricular and deep white matter. Proportional prominence of the ventricles and sulcal spaces without evidence of obstructive hydrocephalus. No abnormal mass effect or midline shift. No extra-axial fluid collections. No pathologic intra-axial enhancement. No acute soft tissue or osseous abnormalities. Mild mucosal thickening of the paranasal sinuses. The mastoid air cells and middle ear cavities are clear. Bilateral lens extractions. CT Neck: The thyroid gland is atrophic. Nonspecific 1.5 cm peripherally calcified lesion in the left thyroid bed (0.8 cm in 2008). The remaining cervical soft tissues are within normal limits. Moderate multilevel degenerative spondylosis arthropathy of the cervical spine. CT Upper Chest: The visualized lung apices and upper mediastinum are within normal limits. Neck CTA: Mildly motion degraded exam. Aortic Arch: Normal contour and caliber with mild calcific atherosclerotic disease. Classic 3 vessel branching pattern of the aortic arch. Great Vessel Origins: No significant stenosis of the branch origins. Right Common Carotid Artery: No focal stenosis or occlusion. Cervical Right Internal Carotid Artery: Calcific atherosclerotic disease of the carotid bulb and proximal internal carotid artery causing less than 50% stenosis. Left Common Carotid Artery: No focal stenosis or occlusion. Cervical Left Internal Carotid Artery: Mild calcific atherosclerotic disease of the carotid bulb and proximal internal carotid artery without flow-limiting stenosis. Cervical Right Vertebral Artery: Mildly dominant. No focal stenosis or occlusion. Cervical Left Vertebral Artery: No focal stenosis or occlusion. Brain CTA: Intracranial Internal Carotid Arteries: Calcific atherosclerotic disease of the intracranial internal carotid arteries without occlusion or flow-limiting stenosis. Right Anterior Cerebral Artery: Normal A1 segment. Normal opacification of the distal GIOVANNA segments. Left Anterior Cerebral Artery: Normal A1 segment. Normal opacification of the distal GIOVANNA segments. Anterior Communicating Artery: Normal. Right Middle Cerebral Artery: Normal M1 segment of the MCA without focal stenosis or occlusion. Normal arborization of the distal segments. Left Middle Cerebral Artery: Normal M1 segment of the MCA without focal stenosis or occlusion. Normal arborization of the distal segments. Right Vertebral Artery: Normal V4 segment. Normal opacification of the proximal segments of the posterior inferior cerebellar artery. Left Vertebral Artery: Normal V4 segment. Normal opacification of the proximal segments of the posterior inferior cerebellar artery. Basilar Artery: Normal without focal stenosis or occlusion. Normal appearance of the proximal superior cerebellar arteries. Right Posterior Cerebral Artery: Normal P1 segment. Normal opacification of the distal KEYBOARDING TEACHER segments. Left Posterior Cerebral Artery: Normal P1 segment. Normal opacification of the distal KEYBOARDING TEACHER segments. Normal opacification of the superior sagittal, straight, transverse, and sigmoid sinuses. CT/CT angio head neck stroke IMPRESSION: 1. No evidence of acute intracranial hemorrhage or edematous territorial infarction. 2. CTA of the head and neck without proximal occlusion or flow-limiting stenosis. 3. Extensive underlying microangiopathy and generalized cerebral volume loss. Chronic lacunar infarcts of the deep nuclei. 4. Nonspecific 1.5 cm peripherally calcified lesion in the left thyroid bed. If clinically indicated, this could be further characterized with thyroid ultrasound. This critical result was discussed with Dr. Walker at 15:55 on 09/06/2022 and it was ascertained that the content and urgency of the report was understood at the time of direct communication.
--- NOTE | ~2022-08-07 | XR_ITS ---
EXAMINATION: XR CHEST CLINICAL INFORMATION: Dyspnea COMPARISON: Chest radiograph 05/21/2022. CT angiography head and neck 06/07/2022. TECHNIQUE: Frontal view of the chest was obtained. FINDINGS: The cardiac silhouette is normal in size. No effusions or pneumothoraces identified. Mild biapical pleural parenchymal scarring of the lungs is visualized. A grossly normal pattern of pulmonary vasculature is noted. Chronic posttraumatic deformity and arthropathic changes of the right shoulder again visualized. Partial visualization is made of eggshell calcification over region measuring approximately 1.5 cm in diameter corresponding to the thyroid nodule identified on the comparison CT angiography of the neck 08/07/2022. XR/XR chest 1V IMPRESSION: *No acute cardiopulmonary abnormalities. *Chronic posttraumatic deformity and arthropathic changes of right shoulder. *Partially visualized 1.5 cm left thyroid nodule with eggshell-type calcification. This finding is visualized to better advantage on the CT of the neck 08/07/2022 which recommended dedicated thyroid ultrasound as clinically indicated for further characterization.
--- NOTE | ~2022-08-07 | CT_ITS ---
EXAMINATION: CT HEAD WITHOUT CONTRAST (STROKE PROTOCOL) CLINICAL INFORMATION: Stroke protocol. COMPARISON: CT head dated 01/07/2022. TECHNIQUE: Contiguous axial imaging was performed from the skull base to vertex without intravenous administration of contrast. This CT examination was performed using dose optimization techniques as appropriate, variously including the following: *Automated exposure control *Adjustment of mA and/or kV according to patient size (this includes techniques or standardized protocols for targeted exams where dose is matched to indication/reason for exam; i.e. extremities or head) *Use of iterative reconstruction technique DLP: 527 mGy-cm FINDINGS: The ventricles and sulci are enlarged consistent with diffuse atrophy. No visualized masses or midline shift are seen. There is no intra-axial or extra-axial hemorrhage. There are no fluid collections. Decreased attenuation is seen in the periventricular white matter compatible with chronic small vessel ischemic disease. The oviedo-white discrimination is preserved. The included paranasal sinuses and mastoid air cells are well aerated. The calvarium is intact. CT/CT head for stroke IMPRESSION: No intracranial hemorrhage or mass effect. Generalized atrophy and chronic small vessel white matter ischemic changes. Findings are slightly progressed when compared to the prior examination. This critical result was discussed with Dr. Walker at 12:29 PM on 08/07/2022. It was ascertained that the content and urgency of the report was understood at the time of direct communication.
--- NOTE | 2022-08-07 12:13 | ECG_ITS ---
Test Reason : STROKE ALERT Blood Pressure : / mmHG Vent. Rate : 070 BPM Atrial Rate : 070 BPM P-R Int : 166 ms QRS Dur : 118 ms QT Int : 424 ms P-R-T Axes : 050 000 010 degrees QTc Int : 457 ms Normal sinus rhythm Incomplete right bundle branch block ST & T wave abnormality, consider anterior ischemia Abnormal ECG When compared with ECG of 23-MAR-2022 16:19, Nonspecific T wave abnormality no longer evident in Lateral leads Referred By: Alejandro Walker Electronically Signed By:BURT DEWITT
--- NOTE | 2022-08-07 12:16 | ED.NEUROSD ---
HPI - Neuro Symptoms/Deficit General Chief Complaint: Stroke Stated Complaint: L SIDE WEAKNESS L SIDE FACIAL DROOP SLURRED SPEECH Time Seen by Provider: 08/07/22 12:13 Source: patient and EMS Mode of arrival: EMS Limitations: no limitations History of Present Illness HPI Narrative: 77-year-old female PMHx HTN, hypothyroidism, intellectual disability, dm 2, came in as a stroke alert. 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 Last known to be normal was about an hour before arrival to the emergency department, patient declined taking any anticoagulation. No CP, no SOB, no abdominal pain. Related Data Home Medications Medication Instructions Recorded Confirmed alendronate 70 mg tablet 70 mg PO CHRISTENSEN@0630 10/13/21 03/23/22 aspirin 81 mg tablet,delayed 81 mg PO DAILY 10/13/21 03/23/22 release (Adult Low Dose Aspirin) atenolol 50 mg tablet 50 mg PO DAILY 10/13/21 03/23/22 atorvastatin 20 mg tablet 20 mg PO DAILY 10/13/21 03/23/22 calcium carbonate 500 mg calcium 500 mg PO DAILY 10/13/21 03/23/22 (1,250 mg) tablet (Oyster Shell Calcium) levothyroxine 88 mcg tablet 88 mcg PO DAILY@0600 10/13/21 03/23/22 omega-3 fatty acids 1,000 mg 1,000 mg PO DAILY 10/13/21 03/23/22 capsule cholecalciferol (vitamin D3) 1,250 1,250 mcg PO CHRISTENSEN@0900 12/22/21 03/23/22 mcg (50,000 unit) capsule nystatin 100,000 unit/gram topical 1 appl topical BID PRN Rash 01/24/22 03/23/22 ointment cholecalciferol (vitamin D3) 50 50 mcg PO DAILY 03/23/22 03/23/22 mcg (2,000 unit) tablet lisinopril 20 mg tablet 1 tab PO DAILY 03/23/22 03/23/22 Previous Rx's Medication Instructions Recorded docusate sodium 100 mg capsule 100 mg PO DAILY #60 caps 03/27/22 (Colace) cefuroxime axetil 250 mg tablet 250 mg PO BID 7 days #14 tabs 05/21/22 ibuprofen 800 mg tablet 800 mg PO Q8H PRN pain 30 days #90 06/15/22 tabs prednisone 20 mg tablet 20 mg PO DAILY #4 tabs 06/17/22 Allergies Allergy/AdvReac Type Severity Reaction Status Date / Time propoxyphene [From Darvon] Allergy Mild UNKNOWN Verified 06/17/22 08:07 alteplase AdvReac Intermediate Itching Verified 08/07/22 15:33 metformin [Metformin] AdvReac Mild DIARRHEA, Verified 06/17/22 08:07 RASH Review of Systems Review of Systems: All other systems are reviewed and are negative Constitutional: Reports as per HPI and Reports no additional constitutional complaints Eyes: Reports as per HPI and Reports no additional eye complaints Reports system reviewed and no additional complaints, except as documented Cardiovascular: Reports as per HPI and Reports no additional cardiovascular complaints Respiratory: Reports as per HPI and Reports no additional respiratory complaints Gastrointestinal: Reports as per HPI and Reports no additional gastrointestinal complaints Genitourinary: Reports no additional female genitourinary complaints Musculoskeletal: Reports no additional musculoskeletal complaints Skin/Breast: Reports system reviewed and no additional complaints, except as docu Psychiatric: Reports no additional psychiatric complaints Endocrine: Reports no additional endocrine complaints Hematologic/Lymphatic: Reports no additional hematologic/lymphatic complaints Allergic/Immunologic: Reports no additional allergic/immunologic complaints Reports system reviewed and no additional complaints, except as documented and Reports Abnormal speech present [facility] Past Medical History Medical History Adult failure to thrive GERD (gastroesophageal reflux disease) Hernia High blood pressure Hypertension Hypothyroidism Intellectual disability Ischemic stroke Major depressive disorder Occult GI bleeding Osteoporosis Type 2 diabetes mellitus Surgical History History of rectal surgery Social History Social History Household Members: None Housing: House Housing Other:: hotel Do you presently have visiting nurse or other home services: Yes (service net) Alcohol intake: never Patient Tobacco Use Status: Former Tobacco user Quit Date: 10+ years ago Tobacco use type: Cigarette Smoked in Last 30 Days: No Second Hand Smoke Exposure: No Use of substances other than those prescribed or required for medical reasons: No Advance Directives: Yes Advance Directives Information Provided: No Advance Directives on File: No service: No Current occupational status: retired and disabled Physical Exam Vital Signs: Vital Signs: Last Vital Signs Temp 98.3 F 08/07/22 12:23 Pulse 74 08/07/22 16:06 Resp 17 08/07/22 16:06 BP 141/84 H 08/07/22 16:06 Pulse Ox 100 08/07/22 16:06 O2 Del Method Room Air 08/07/22 16:06 BMI result Body Mass Index 20.9 Vital signs have been reviewed as appeared to be correct. Blood pressure normal. Heart rate normal. Respiration rate normal. Temperature normal. Oxygen saturation normal. Appearance: Alert. Oriented X3. No acute distress. Head: Normal external exam. Normocephalic. Atraumatic. No Mercado signs noted. No raccoon eyes noted, left facial droop (old) Eyes: PERRLA. EOMI. Conjunctiva and sclera normal. Eyelids normal. ENT: TM's Normal. Pharynx normal. Uvula midline. Moist mucous membranes. No trismus noted. No drooling noted. No muffled voice noted. Neck: Normal inspection. Neck supple. FROM. No adenopathy. Thyroid Normal. No meningeal signs. No neck mass noted. CVS: Normal heart rate and rhythm. Heart sound normal. No murmurs noted. Pulses normal throughout. Respiratory: No respiratory distress. Painless inspiration. Breath sounds normal. No wheezes/rales/rhonchi noted. Chest nontender. No accessory muscle usage noted or decreased air movement noted. Abdomen: Soft and nontender. Bowel sounds normal in all 4 quadrants. No distention noted. No organomegaly noted. No visible injury noted. Back: No CVA tenderness. Full range of motion noted. Skin: Skin warm and dry. Normal skin color. Normal skin turgor. No rashes/lesions/lacerations noted. Extremities: No lower extremity edema. Extremities exhibit normal range of motion. Extremities nontender. Neuro: Oriented X 3. Cranial nerve exam: II-XII are grossly intact Right upper/lower extremities weakness more to the lower extremity. No sensory deficit. Reflexes normal. Course Course Course Narrative: 77-year-old female came in with stroke symptoms, with NIH score of 4 patient was a candidate for tPA therapy, the case was discussed with Dr. Arce who has seen and examined the patient at the bedside and agree with the plan, will consider CTa, Reevaluation(s) Reevaluation #1: After received tPA patient started to have headache and pressure behind the eyes patient is getting anxious and started to cry, repeat plain CT head was scheduled along with a CTA make sure there is no intracranial bleed after tPA. Patient also started to have rashes and itching around her neck likely patient is allergic to alteplase and patient received Benadryl. Time: 15:25 Reevaluation #2: Patient with improvement of her symptoms, repeat CT after tPA shows no post tPA administration bleeding. CTA head and neck showing no large vessel occlusion. UA is revealing UTI. Time: 16:06 Medications Administered Discontinued Medications Generic Name Dose Route Start Last Admin Trade Name Freq PRN Reason Stop Dose Admin Alteplase, Recombinant 48.06 mg 08/07/22 12:58 08/07/22 13:25 Alteplase 100 Mg Vial 0.9 mg/kg (48.06 mg) 08/07/22 12:59 48.06 mg IV Administration ONCE ONE Diphenhydramine HCl 25 mg 08/07/22 14:46 08/07/22 15:02 Diphenhydramine Hcl 50 Mg/Ml Vial IVPUSH 08/07/22 14:47 25 mg ONCE ONE Administration Iohexol 70 ml 08/07/22 15:33 08/07/22 15:34 Iohexol 350 Mg/Ml 100 Ml Infus..Btl IV 08/07/22 15:34 70 ml ONCE ONE Administration Medical Decision Making Differential Diagnosis Differential Diagnoses: The differential diagnosis associated with the presentation includes (Ischemic CVA, hemorrhagic CVA, electrolyte abnormalities, severe anemia, ACS.) Admission/Observation Consideration of admission/observation: Escalation of care including admission/observation considered Consult Healthcare Provider Management of the patient was discussed with: Social Work Program Coordinator (Dr. Madison) Lab Data MDM Lab Attestation statement: I reviewed the patient's lab results. 08/07/22 12:13 08/07/22 12:13 Labs: Lab Results 08/07/22 08/07/22 08/07/22 Range/Units 12:13 12:13 12:13 WBC 6.9 (4.8-10.8) X10*3/uL RBC 4.14 L (4.20-5.50) X10*6/uL Hgb 8.2 L (12.0-16.0) g/dl Hct 28.4 L (37.0-47.0) % MCV 68.6 L (80.0-98.0) fL MCH 19.8 L (27.0-33.0) pg MCHC 28.9 L (31.0-35.0) g/dl RDW 16.2 H (11.0-16.0) % Plt Count 147 L D (160-400) X10*3/uL MPV 10.9 (9.4-12.3) fL Immature Gran % (Auto) 0.3 (0.0-0.4) % Neut % (Auto) 72.5 (45-73) % Lymph % (Auto) 16.8 L (20-40) % [place] % (Auto) 4.5 (2-11) % Eos % (Auto) 5.8 H (0-4) % Baso % (Auto) 0.1 (0-2) % Lymph # (Auto) 1.2 (1.2-4.9) X10*3/uL [place] # (Auto) 0.3 (0.1-1.2) X10*3/uL Eos # (Auto) 0.4 (0.0-0.4) X10*3/uL Baso # (Auto) 0.0 (0.0-0.2) X10*3/uL Abs Immat Gran (auto) 0.02 (0.00-0.03) X10*3/uL Absolute Neuts (auto) 5.0 (2.0-8.3) x10*3/uL Absolute Nucleated RBC 0.000 (0.0-0.012) X10*3/uL Nucleated RBC % (auto) 0.0 (0.0-0.2) /100WBC PT 10.5 (10.0-13.1) SEC INR 0.9 (0.9-1.1) APTT 23.7 L (26.0-36.4) SEC Sodium 143 (135-145) mmol/L Potassium 4.2 (3.3-5.1) mmol/L Chloride 109 H (96-108) mmol/L Carbon Dioxide 22 (22-29) mmol/L Anion Gap 16 (12-20) BUN 10 (9-16) mg/dL Creatinine 0.57 (0.5-1.4) mg/dL Estim Creat Clear Calc 67.2 Estimated GFR > 60 POC Glucose (60-115) mg/dL Random Glucose 115 (60-115) mg/dL Calcium 9.4 (8.4-10.2) mg/dL Total Creatine Kinase 41 (26-140) U/L Troponin I High Sens (<3.5-17.0) ng/L Urine Color Urine Appearance Urine pH (5.0-9.0) Ur Specific [place] (1.005-1.025) Urine Protein (Neg-Trace) mg/dL Urine Glucose (UA) (Negative) mg/dL Urine Ketones (Negative) mg/dL Urine Blood (Negative) Urine Nitrite (Negative) Ur Leukocyte Esterase (Negative) Urine RBC (0-2) /HPF Urine WBC (0-5) /HPF Ur Squamous Epith Cells (0-2) /HPF Urine Bacteria (None Seen) Hyaline Casts (0-2) /LPF Urine Opiates Screen (Not Detect) Urine Fentanyl Screen (Not Detect) Ur Barbiturates Screen (Not Detect) Ur Phencyclidine Scrn (Not Detect) Ur Amphetamines Screen (Not Detect) U Benzodiazepines Scrn (Not Detect) Urine Cocaine Screen (Not Detect) U Marijuana (THC) Screen (Not Detect) 08/07/22 08/07/22 08/07/22 Range/Units 12:13 12:29 13:10 WBC (4.8-10.8) X10*3/uL RBC (4.20-5.50) X10*6/uL Hgb (12.0-16.0) g/dl Hct (37.0-47.0) % MCV (80.0-98.0) fL MCH (27.0-33.0) pg MCHC (31.0-35.0) g/dl RDW (11.0-16.0) % Plt Count (160-400) X10*3/uL MPV (9.4-12.3) fL Immature Gran % (Auto) (0.0-0.4) % Neut % (Auto) (45-73) % Lymph % (Auto) (20-40) % [place] % (Auto) (2-11) % Eos % (Auto) (0-4) % Baso % (Auto) (0-2) % Lymph # (Auto) (1.2-4.9) X10*3/uL [place] # (Auto) (0.1-1.2) X10*3/uL Eos # (Auto) (0.0-0.4) X10*3/uL Baso # (Auto) (0.0-0.2) X10*3/uL Abs Immat Gran (auto) (0.00-0.03) X10*3/uL Absolute Neuts (auto) (2.0-8.3) x10*3/uL Absolute Nucleated RBC (0.0-0.012) X10*3/uL Nucleated RBC % (auto) (0.0-0.2) /100WBC PT (10.0-13.1) SEC INR (0.9-1.1) APTT (26.0-36.4) SEC Sodium (135-145) mmol/L Potassium (3.3-5.1) mmol/L Chloride (96-108) mmol/L Carbon Dioxide (22-29) mmol/L Anion Gap (12-20) BUN (9-16) mg/dL Creatinine (0.5-1.4) mg/dL Estim Creat Clear Calc Estimated GFR POC Glucose 101 (60-115) mg/dL Random Glucose (60-115) mg/dL Calcium (8.4-10.2) mg/dL Total Creatine Kinase (26-140) U/L Troponin I High Sens 3.1 (<3.5-17.0) ng/L Urine Color Yellow Urine Appearance Clear Urine pH 6.5 (5.0-9.0) Ur Specific [place] <= 1.005 (1.005-1.025) Urine Protein Negative (Neg-Trace) mg/dL Urine Glucose (UA) Negative (Negative) mg/dL Urine Ketones Negative (Negative) mg/dL Urine Blood Negative (Negative) Urine Nitrite Positive H (Negative) Ur Leukocyte Esterase Large (3+) H (Negative) Urine RBC 0-2 (0-2) /HPF Urine WBC 11-20 H (0-5) /HPF Ur Squamous Epith Cells 3-5 (0-2) /HPF Urine Bacteria 4+ (None Seen) Hyaline Casts 0-2 (0-2) /LPF Urine Opiates Screen (Not Detect) Urine Fentanyl Screen (Not Detect) Ur Barbiturates Screen (Not Detect) Ur Phencyclidine Scrn (Not Detect) Ur Amphetamines Screen (Not Detect) U Benzodiazepines Scrn (Not Detect) Urine Cocaine Screen (Not Detect) U Marijuana (THC) Screen (Not Detect) 08/07/22 Range/Units 13:10 WBC (4.8-10.8) X10*3/uL RBC (4.20-5.50) X10*6/uL Hgb (12.0-16.0) g/dl Hct (37.0-47.0) % MCV (80.0-98.0) fL MCH (27.0-33.0) pg MCHC (31.0-35.0) g/dl RDW (11.0-16.0) % Plt Count (160-400) X10*3/uL MPV (9.4-12.3) fL Immature Gran % (Auto) (0.0-0.4) % Neut % (Auto) (45-73) % Lymph % (Auto) (20-40) % [place] % (Auto) (2-11) % Eos % (Auto) (0-4) % Baso % (Auto) (0-2) % Lymph # (Auto) (1.2-4.9) X10*3/uL [place] # (Auto) (0.1-1.2) X10*3/uL Eos # (Auto) (0.0-0.4) X10*3/uL Baso # (Auto) (0.0-0.2) X10*3/uL Abs Immat Gran (auto) (0.00-0.03) X10*3/uL Absolute Neuts (auto) (2.0-8.3) x10*3/uL Absolute Nucleated RBC (0.0-0.012) X10*3/uL Nucleated RBC % (auto) (0.0-0.2) /100WBC PT (10.0-13.1) SEC INR (0.9-1.1) APTT (26.0-36.4) SEC Sodium (135-145) mmol/L Potassium (3.3-5.1) mmol/L Chloride (96-108) mmol/L Carbon Dioxide (22-29) mmol/L Anion Gap (12-20) BUN (9-16) mg/dL Creatinine (0.5-1.4) mg/dL Estim Creat Clear Calc Estimated GFR POC Glucose (60-115) mg/dL Random Glucose (60-115) mg/dL Calcium (8.4-10.2) mg/dL Total Creatine Kinase (26-140) U/L Troponin I High Sens (<3.5-17.0) ng/L Urine Color Urine Appearance Urine pH (5.0-9.0) Ur Specific [place] (1.005-1.025) Urine Protein (Neg-Trace) mg/dL Urine Glucose (UA) (Negative) mg/dL Urine Ketones (Negative) mg/dL Urine Blood (Negative) Urine Nitrite (Negative) Ur Leukocyte Esterase (Negative) Urine RBC (0-2) /HPF Urine WBC (0-5) /HPF Ur Squamous Epith Cells (0-2) /HPF Urine Bacteria (None Seen) Hyaline Casts (0-2) /LPF Urine Opiates Screen Not Detected (Not Detect) Urine Fentanyl Screen Not Detected (Not Detect) Ur Barbiturates Screen Not Detected (Not Detect) Ur Phencyclidine Scrn Not Detected (Not Detect) Ur Amphetamines Screen Not Detected (Not Detect) U Benzodiazepines Scrn Not Detected (Not Detect) Urine Cocaine Screen Not Detected (Not Detect) U Marijuana (THC) Screen Not Detected (Not Detect) Independent Interpretation I performed an independent interpretation of an: CT Scan (Head: No acute intracranial pathology.) Radiology Impression Discussion of test interpretation with radiology: I have reviewed the radiologist's reading. NIH Stroke Scale Time: 12:22 Level of Consciousness: Alert Level of Consciousness Questions: Answers both questions correctly Level of Consciousness Commands: Performs both tasks correctly Best Gaze: Normal Visual: No visual loss Facial Palsy: Minor paralyis Motor Arm (Right): Drift Motor Arm (Left): No drift Motor Leg (Right): Drift Motor Leg (Left): No drift Limb Ataxia: Absent Sensory: Normal Best Language: Mild to moderate aphasia Dysarthia: Normal Extinction and Inattention: No abnormality Score: 4 Critical Care Time Critical Care Time Critical Care Time: Yes Total Critical Care Time: 60 Attestation: I spent 60 minutes providing critical care service to the patient, this including time spent at the bedside to evaluate the patient, reassess the patient, monitoring vital signs, review labs, and radiographic studies, counseling the patient/family, discussing the case with consultants, disposition the patient. Discharge Plan Discharge Clinical Impression: Cerebrovascular accident, Acute UTI Patient Disposition: Admitted As Inpatient
[2022-08-07 12:21] LABS: MANUAL DIFF FLAG NO
[2022-08-07 12:29] LABS: INTERNATIONAL NORM RATIO 0.9 (0.9-1.1); Prothrombin Time 10.5 SEC (10.0-13.1)
[2022-08-07 12:34] LABS: Partial Thromboplastin Time 23.7 SEC (26.0-36.4)
[2022-08-07 12:35] LABS: Basophils Percent Auto 0.1 % (0-2); Hemoglobin 8.2 g/dl (12.0-16.0); Imm Gran Abs Auto 0.02 X10*3/uL (0.00-0.03); Imm Gran Pct Auto 0.3 % (0.0-0.4); PLT CLUMP 1; SCAN SMEAR FLAG 1; Stroke Lab Use COMPLETE
[2022-08-07 12:36] LABS: Eosinophils Absolute Auto 0.4 X10*3/uL (0.0-0.4); Eosinophils Percent Auto 5.8 % (0-4); Hematocrit 28.4 % (37.0-47.0); Lymphocytes Absolute Auto 1.2 X10*3/uL (1.2-4.9); Lymphocytes Percent Auto 16.8 % (20-40); Mean Corpuscular HGB Conc 28.9 g/dl (31.0-35.0); Mean Corpuscular Hemoglobin 19.8 pg (27.0-33.0); Mean Corpuscular Volume 68.6 fL (80.0-98.0); Mean Platelet Volume 10.9 fL (9.4-12.3); Monocytes Absolute Auto 0.3 X10*3/uL (0.1-1.2); Monocytes Percent Auto 4.5 % (2-11); Neutrophils Percent Auto 72.5 % (45-73); Red Blood Count 4.14 X10*6/uL (4.20-5.50); Red Cell Distribution Width 16.2 % (11.0-16.0)
[2022-08-07 12:40] LABS: Glucose, Whole Blood 101 mg/dL (60-115)
[2022-08-07 12:44] LABS: Anion Gap 16 (12-20); Blood Urea Nitrogen 10 mg/dL (9-16); Calcium 9.4 mg/dL (8.4-10.2); Carbon Dioxide 22 mmol/L (22-29); Chloride 109 mmol/L (96-108); Creatinine Clr Calc Pharmacy 67.2; Estimated Glomerular Filt Rate > 60; Glucose Random 115 mg/dL (60-115); Potassium 4.2 mmol/L (3.3-5.1); Sodium 143 mmol/L (135-145); Troponin-I High Sensitivity 3.1 ng/L (<3.5-17.0)
[2022-08-07 13:09] LABS: PLT ABN DIST 1; Platelet Count 147 X10*3/uL (160-400); White Blood Count 6.9 X10*3/uL (4.8-10.8)
[2022-08-07 13:17] LABS: Appearance Urine Clear; Color Urine Yellow; Glucose Urine UA Negative (Negative); Leukocyte Esterase Urine Large (3+) (Negative); Nitrite Urine Positive (Negative); PH 6.5 (5.0-9.0); Specific Gravity - Urine <= 1.005 (1.005-1.025); UMIC TRIGGER UACC YES; Urine Blood Negative (Negative); Urine Ketones Negative (Negative); Urine Protein Negative (Neg-Trace)
[2022-08-07 13:21] LABS: Bacteria Urine 4+ (None Seen); Hyaline Casts Urine 0-2 /LPF (0-2); RBC Urine 0-2 /HPF (0-2); UACC Culture Trigger YES
[2022-08-07 13:26] LABS: Amphetamine Screen Urine Not Detected (Not Detect); Barbiturates, Urine Not Detected (Not Detect); Benzodiazepines Screen Urine Not Detected (Not Detect); Cannabinoid Screen Urine Not Detected (Not Detect); Cocaine Screen Urine Not Detected (Not Detect); Fentanyl, urine Not Detected (Not Detect); Opiate Screen Urine Not Detected (Not Detect); Phencyclidine Screen Urine Not Detected (Not Detect)
--- NOTE | 2022-08-07 13:46 | PC.NURSE ---
pt A&oriented x4, continues to c/o of weakness to the R side of her body, +4 on the left, +3 on the right. L sided facial droop present. pt reports speech not baseline, feels slurred . Staff at bedside report pt not at baseline - slurred speech. VSS HR 74, RR 27, O2 96%, BP 161/78
--- NOTE | 2022-08-07 13:54 | PM.NEUROCN ---
History of Present Illness Data of Consult Service Date: 08/07/22 Primary Care Provider: Sangeetha Sage MD HPI Reason for consult: Stroke 77 years old woman with past medical history of learning disability and chronic hypertension or diabetes came to hospital with new onset of difficulty speaking. She reported symptoms of right-sided weakness and difficulty speaking but was noted to have mild left-sided weakness and difficulty speaking on examination. There was no headache any change in vision nausea or vomiting. Any and stroke scale was 4. Initial suspicion of brainstem infarct he was treated with intravenous tPA. Review of Systems Review of Systems: No recent cold or flu-like illness PMFSH Past Medical History Medical History Adult failure to thrive GERD (gastroesophageal reflux disease) Hernia High blood pressure Hypertension Hypothyroidism Intellectual disability Ischemic stroke Major depressive disorder Occult GI bleeding Osteoporosis Type 2 diabetes mellitus Surgical History Surgical History History of rectal surgery Social History Social History Household Members: None Housing: House Housing Other:: hotel Do you presently have visiting nurse or other home services: Yes (service net) Alcohol intake: never Patient Tobacco Use Status: Former Tobacco user Quit Date: 10+ years ago Tobacco use type: Cigarette Smoked in Last 30 Days: No Second Hand Smoke Exposure: No Use of substances other than those prescribed or required for medical reasons: No Advance Directives: Yes Advance Directives Information Provided: No Advance Directives on File: No service: No Current occupational status: retired and disabled Meds Allergies Allergy/AdvReac Type Severity Reaction Status Date / Time propoxyphene [From Darvon] Allergy Mild UNKNOWN Verified 06/17/22 08:07 metformin [Metformin] AdvReac Mild DIARRHEA, Verified 06/17/22 08:07 RASH Home Medications Medication Instructions Recorded Confirmed Last Taken Type alendronate 70 mg tablet 70 mg PO CHRISTENSEN@0630 10/13/21 03/23/22 03/20/22 History aspirin 81 mg tablet,delayed 81 mg PO DAILY 10/13/21 03/23/22 03/23/22 History release (Adult Low Dose Aspirin) atenolol 50 mg tablet 50 mg PO DAILY 10/13/21 03/23/22 03/23/22 History atorvastatin 20 mg tablet 20 mg PO DAILY 10/13/21 03/23/22 03/23/22 History calcium carbonate 500 mg calcium 500 mg PO DAILY 10/13/21 03/23/22 03/23/22 History (1,250 mg) tablet (Oyster Shell Calcium) levothyroxine 88 mcg tablet 88 mcg PO DAILY@0600 10/13/21 03/23/22 03/23/22 History omega-3 fatty acids 1,000 mg 1,000 mg PO DAILY 10/13/21 03/23/22 03/23/22 History capsule cholecalciferol (vitamin D3) 1,250 1,250 mcg PO CHRISTENSEN@0900 12/22/21 03/23/22 03/20/22 History mcg (50,000 unit) capsule nystatin 100,000 unit/gram topical 1 appl topical BID PRN Rash 01/24/22 03/23/22 Unknown History ointment cholecalciferol (vitamin D3) 50 50 mcg PO DAILY 03/23/22 03/23/22 03/23/22 History mcg (2,000 unit) tablet lisinopril 20 mg tablet 1 tab PO DAILY 03/23/22 03/23/22 03/23/22 History Physical Exam Vital Signs: Vital Signs: Last Vital Signs Temp 98.3 F 08/07/22 12:23 Pulse 74 08/07/22 13:49 Resp 27 H 08/07/22 13:49 BP 161/78 H 08/07/22 13:49 Pulse Ox 96 08/07/22 13:49 O2 Del Method Room Air 08/07/22 13:49 BMI result Body Mass Index 20.9 Neuro: Other: She is alert and awake with normal spontaneity of speech fluency comprehension and vague affect. There is mild left-sided facial weakness. There is no obvious focal arm or leg weakness deep tendon reflexes are 1+ with equivocal plantars. Speech is slightly slurred. Quality Assurance Supervisor Final sitting with her stated that this was not her regular speech. Results Labs 08/07/22 12:13 08/07/22 12:13 Labs: Short CBC 08/07/22 Range/Units 12:13 WBC 6.9 (4.8-10.8) X10*3/uL Hgb 8.2 L (12.0-16.0) g/dl Hct 28.4 L (37.0-47.0) % Plt Count 147 L D (160-400) X10*3/uL BMP 08/07/22 12:13 Sodium 143 Potassium 4.2 Chloride 109 H Carbon Dioxide 22 BUN 10 Creatinine 0.57 Calcium 9.4 Cardiac Enzymes 08/07/22 Range/Units 12:13 Total Creatine Kinase 41 (26-140) U/L Urine 08/07/22 Range/Units 13:10 Urine Color Yellow Urine Appearance Clear Urine pH 6.5 (5.0-9.0) Ur Specific [place] <= 1.005 (1.005-1.025) Urine Protein Negative (Neg-Trace) mg/dL Urine Glucose (UA) Negative (Negative) mg/dL Noncontrast head CT revealed chronic moderate microvascular ischemic changes. Assessment and Plan (1) Stroke: Status: Acute 77 years old woman with past medical history of hypertension, which is not well controlled, and diabetes came to hospital with new onset of slurred speech and right-sided weakness while she was noted to have slurred speech and left-sided weakness. With suspicion of brainstem infarct, she was treated with intravenous tPA. Plan was to obtain a CTA to rule out any large vessel disease. If that is not found, plan is to admit her in ICU for 24 hours. Otherwise mainstay of management is blood pressure control diabetic control and anti-platelet agent. Anti-platelet agent can be started tomorrow. PT OT and speech and swallowing evaluation consultation are also recommended. A noncontrast MRI of brain is also recommended to be done tomorrow. Time Spent With Patient Time: Total time managing care of this patient today ____ minutes. Procedures Date of Service Date of Service: 08/07/22
--- NOTE | 2022-08-07 14:05 | PC.NURSE ---
4.8ml bolus alteplase given at 1323 - IV gtt infusion of 43.4ml started per MAR
--- NOTE | 2022-08-07 14:27 | PC.NURSE ---
TPA finished at this time. VSS HR 75, RR 22, Os 100% BP 171/72
--- NOTE | 2022-08-07 14:32 | PC.NURSE ---
upon completion of TPA pt became tearful, complaining of blurry vision, head pressure and difficulty finding words. pt appears to be working harder to breath RR 22, SaO2 remains 100%
--- NOTE | 2022-08-07 14:50 | PC.NURSE ---
PT presenting with hives/redness/swelling to neck, bilaterally, reporting it is ichy. MD made aware. Benadryl ordered for ? allergic reaction
[2022-08-07] MEDS: diphenhydrAMINE HCL 50 MG/ML VIAL 25 MG IVPUSH (15:02)
[2022-08-07] MEDS: iohexoL 350 MG/ML 100 ML INFUS..BTL 70 ML IV (15:34)
--- NOTE | 2022-08-07 15:45 | PC.NURSE ---
pt reports improvement to blurry vision and head pressure. neuros intact,
--- NOTE | 2022-08-07 16:57 | PM.CCHP ---
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 she and and hypertension and type 2 diabetes mellitus who is 6 months status post COVID-19 infection presents with a drawl in her speech which was her complaint but it was noted that she had some right-sided weakness with with a pronator drift involving right upper extremity and of the right lower extremity but also she had what appeared to be a a left central facial weakness with a facial droop on the left side so contralateral left facial right-sided weakness Negative CT scan but despite this lesion being in the in the brainstem in all probability with the based on the negative CT scan they proceeded with tPA right after the tPA she broke out in hives did a diffuse pruritic urticarial rash given Benadryl and she remained awake and alert but complained of headache so based on that she had a repeat CT and CTA and there was nothing new in other words note no evidence of hemorrhage and all 4 vessels were patent and so she is admitted for observation Review of Systems Review of Systems: Yes all other systems are reviewed and are negative COUNT INCLUDES THE [facility] Past Medical History Medical History Adult failure to thrive GERD (gastroesophageal reflux disease) Hernia High blood pressure Hypertension Hypothyroidism Intellectual disability Ischemic stroke Major depressive disorder Occult GI bleeding Osteoporosis Type 2 diabetes mellitus Surgical History Surgical History History of rectal surgery Social History Social History Household Members: None Housing: House Housing Other:: hotel Do you presently have visiting nurse or other home services: Yes (service net) Alcohol intake: never Patient Tobacco Use Status: Former Tobacco user Quit Date: 10+ years ago Tobacco use type: Cigarette Smoked in Last 30 Days: No Second Hand Smoke Exposure: No Use of substances other than those prescribed or required for medical reasons: No Advance Directives: Yes Advance Directives Information Provided: No Advance Directives on File: No service: No Current occupational status: retired and disabled Meds Allergies Allergy/AdvReac Type Severity Reaction Status Date / Time propoxyphene [From Darvon] Allergy Mild UNKNOWN Verified 06/17/22 08:07 alteplase AdvReac Intermediate Itching Verified 08/07/22 15:33 metformin [Metformin] AdvReac Mild DIARRHEA, Verified 06/17/22 08:07 RASH Home Medications Medication Instructions Recorded Confirmed Last Taken Type alendronate 70 mg tablet 70 mg PO CHRISTENSEN@0630 10/13/21 03/23/22 03/20/22 History aspirin 81 mg tablet,delayed 81 mg PO DAILY 10/13/21 03/23/22 03/23/22 History release (Adult Low Dose Aspirin) atenolol 50 mg tablet 50 mg PO DAILY 10/13/21 03/23/22 03/23/22 History atorvastatin 20 mg tablet 20 mg PO DAILY 10/13/21 03/23/22 03/23/22 History calcium carbonate 500 mg calcium 500 mg PO DAILY 10/13/21 03/23/22 03/23/22 History (1,250 mg) tablet (Oyster Shell Calcium) levothyroxine 88 mcg tablet 88 mcg PO DAILY@0600 10/13/21 03/23/22 03/23/22 History omega-3 fatty acids 1,000 mg 1,000 mg PO DAILY 10/13/21 03/23/22 03/23/22 History capsule cholecalciferol (vitamin D3) 1,250 1,250 mcg PO CHRISTENSEN@0900 12/22/21 03/23/22 03/20/22 History mcg (50,000 unit) capsule nystatin 100,000 unit/gram topical 1 appl topical BID PRN Rash 01/24/22 03/23/22 Unknown History ointment cholecalciferol (vitamin D3) 50 50 mcg PO DAILY 03/23/22 03/23/22 03/23/22 History mcg (2,000 unit) tablet lisinopril 20 mg tablet 1 tab PO DAILY 03/23/22 03/23/22 03/23/22 History Physical Exam Vital Signs: Vital Signs: Last Vital Signs Temp 98.3 F 08/07/22 12:23 Pulse 78 08/07/22 16:42 Resp 24 H 08/07/22 16:42 BP 142/77 H 08/07/22 16:42 Pulse Ox 96 08/07/22 16:42 O2 Del Method Room Air 08/07/22 16:42 BMI result Body Mass Index 20.9 She had no longer has the left facial and there is no significant pronator drift on the right side her strength seems to be fairly equal Awake alert and oriented The neck and upper trunk covered in raised urticarial rash Abdomen soft with no organomegaly Cardiac exam with good bilateral carotid upstrokes and no neck vein distension no significant murmurs or heaves Chest percussed equally no adventitious sounds No peripheral edema Results Labs 08/07/22 12:13 08/07/22 12:13 Labs: Laboratory Results - last 24 hr 08/07/22 08/07/22 08/07/22 12:13 12:13 12:13 MCV 68.6 L MCH 19.8 L MCHC 28.9 L RDW 16.2 H Plt Count 147 L D MPV 10.9 Immature Gran % (Auto) 0.3 Neut % (Auto) 72.5 Lymph % (Auto) 16.8 L [place] % (Auto) 4.5 Eos % (Auto) 5.8 H Baso % (Auto) 0.1 Lymph # (Auto) 1.2 [place] # (Auto) 0.3 Eos # (Auto) 0.4 Baso # (Auto) 0.0 Abs Immat Gran (auto) 0.02 Absolute Neuts (auto) 5.0 Absolute Nucleated RBC 0.000 Nucleated RBC % (auto) 0.0 PT 10.5 INR 0.9 APTT 23.7 L Anion Gap 16 Estim Creat Clear Calc 67.2 Estimated GFR > 60 POC Glucose Random Glucose 115 Calcium 9.4 Total Creatine Kinase 41 Troponin I High Sens Urine Color Urine Appearance Urine pH Ur Specific [place] Urine Protein Urine Glucose (UA) Urine Ketones Urine Blood Urine Nitrite Ur Leukocyte Esterase Urine RBC Urine WBC Ur Squamous Epith Cells Urine Bacteria Hyaline Casts Urine Opiates Screen Urine Fentanyl Screen Ur Barbiturates Screen Ur Phencyclidine Scrn Ur Amphetamines Screen U Benzodiazepines Scrn Urine Cocaine Screen U Marijuana (THC) Screen 08/07/22 08/07/22 08/07/22 12:13 12:29 13:10 MCV MCH MCHC RDW Plt Count MPV Immature Gran % (Auto) Neut % (Auto) Lymph % (Auto) [place] % (Auto) Eos % (Auto) Baso % (Auto) Lymph # (Auto) [place] # (Auto) Eos # (Auto) Baso # (Auto) Abs Immat Gran (auto) Absolute Neuts (auto) Absolute Nucleated RBC Nucleated RBC % (auto) PT INR APTT Anion Gap Estim Creat Clear Calc Estimated GFR POC Glucose 101 Random Glucose Calcium Total Creatine Kinase Troponin I High Sens 3.1 Urine Color Yellow Urine Appearance Clear Urine pH 6.5 Ur Specific [place] <= 1.005 Urine Protein Negative Urine Glucose (UA) Negative Urine Ketones Negative Urine Blood Negative Urine Nitrite Positive H Ur Leukocyte Esterase Large (3+) H Urine RBC 0-2 Urine WBC 11-20 H Ur Squamous Epith Cells 3-5 Urine Bacteria 4+ Hyaline Casts 0-2 Urine Opiates Screen Urine Fentanyl Screen Ur Barbiturates Screen Ur Phencyclidine Scrn Ur Amphetamines Screen U Benzodiazepines Scrn Urine Cocaine Screen U Marijuana (THC) Screen 08/07/22 13:10 MCV MCH MCHC RDW Plt Count MPV Immature Gran % (Auto) Neut % (Auto) Lymph % (Auto) [place] % (Auto) Eos % (Auto) Baso % (Auto) Lymph # (Auto) [place] # (Auto) Eos # (Auto) Baso # (Auto) Abs Immat Gran (auto) Absolute Neuts (auto) Absolute Nucleated RBC Nucleated RBC % (auto) PT INR APTT Anion Gap Estim Creat Clear Calc Estimated GFR POC Glucose Random Glucose Calcium Total Creatine Kinase Troponin I High Sens Urine Color Urine Appearance Urine pH Ur Specific [place] Urine Protein Urine Glucose (UA) Urine Ketones Urine Blood Urine Nitrite Ur Leukocyte Esterase Urine RBC Urine WBC Ur Squamous Epith Cells Urine Bacteria Hyaline Casts Urine Opiates Screen Not Detected Urine Fentanyl Screen Not Detected Ur Barbiturates Screen Not Detected Ur Phencyclidine Scrn Not Detected Ur Amphetamines Screen Not Detected U Benzodiazepines Scrn Not Detected Urine Cocaine Screen Not Detected U Marijuana (THC) Screen Not Detected Imaging Radiologist's Impressions: Impressions Head CT 08/07/22 12:23 IMPRESSION: No intracranial hemorrhage or mass effect. Generalized atrophy and chronic small vessel white matter ischemic changes. Findings are slightly progressed when compared to the prior examination. This critical result was discussed with Dr. Walker at 12:29 PM on 08/07/2022. It was ascertained that the content and urgency of the report was understood at the time of direct communication. Head CT 08/07/22 15:43 IMPRESSION: 1. No evidence of acute intracranial hemorrhage or edematous territorial infarction. 2. CTA of the head and neck without proximal occlusion or flow-limiting stenosis. 3. Extensive underlying microangiopathy and generalized cerebral volume loss. Chronic lacunar infarcts of the deep nuclei. 4. Nonspecific 1.5 cm peripherally calcified lesion in the left thyroid bed. If clinically indicated, this could be further characterized with thyroid ultrasound. This critical result was discussed with Dr. Walker at 15:55 on 09/06/2022 and it was ascertained that the content and urgency of the report was understood at the time of direct communication. Head/Neck CTA 08/07/22 15:44 IMPRESSION: 1. No evidence of acute intracranial hemorrhage or edematous territorial infarction. 2. CTA of the head and neck without proximal occlusion or flow-limiting stenosis. 3. Extensive underlying microangiopathy and generalized cerebral volume loss. Chronic lacunar infarcts of the deep nuclei. 4. Nonspecific 1.5 cm peripherally calcified lesion in the left thyroid bed. If clinically indicated, this could be further characterized with thyroid ultrasound. This critical result was discussed with Dr. Walker at 15:55 on 09/06/2022 and it was ascertained that the content and urgency of the report was understood at the time of direct communication. Assessment and Plan (1) Cerebrovascular accident: Status: Acute (2) Acute UTI: Status: Acute (3) Stroke: Status: Acute (4) Hypertension: Status: Acute (5) Type 2 diabetes mellitus: Status: Acute (6) Hypothyroidism: Status: Acute (7) Adnexal mass: Status: Acute (8) COVID-19 virus infection: Status: Acute (9) Thrombocytopenia: Status: Acute (10) Anemia: Status: Acute Plan So this lady looks like she had probably about a brainstem stroke and I would therefore recommend an MRI tomorrow because of the difficulty in imaging from CT scan but no apparent complication from tPA other than the urticarial rash so clearly allergic but she had no longer has the drift on the right side has equal oil sales and service rep strength and she no longer has the left facial and she has got minimal residual of an old Eddy's palsy on that left side in that her she can not really for all her brow as much She voiced to me that she thinks that her Iván's apple was shifted to the left side clearly it is physically midline and when she swallows it remains midline but this may be the no at the a description of a certain extent of her brainstem involvement with the may be some involvement of maybe 9th and or 10th cranial nerves but she claims that she can swallow without discomfort but this may merit an MRI for tonight to be on the safe side She still yet needs a formal echo tomorrow possibly an MRI tonight to look better at the brainstem and probably 1 dose of hydrocortisone for the urticarial rash that she has just in case some of her complaint in her throat is related to the the allergy and the other issue is that she has got anemia with very low indices MCV and MCHC so iron deficiency possible bleeding that needs to be evaluated and she is at thrombocytopenia as well so it is not impossible that she could have some myelodysplastic syndrome Time Spent With Patient Time: Total time managing care of this patient today 45____ minutes.
[2022-08-07 17:36] LABS: Iron 13 mcg/dL (30-160); Percent Iron Saturation 4 % (15-50); Total Iron Binding Capacity 344 mcg/dL (228-428); Unsaturated Iron Binding 331 ug/dL
--- NOTE | 2022-08-07 17:48 | PC.NURSE ---
neuros remain intact, pt alert and oriented x4. no complaints at this time. pt reports she feels her speech is improving.
--- NOTE | 2022-08-07 17:51 | PHA.MEDREC ---
Pharmacy Consult ? Medication Reconciliation Pharmacy has completed the medication reconciliation. spoke with patient. She had a list from [facility] and was able to confirm them.
[2022-08-07 18:10] LABS: Folate 11.3 ng/mL (> or = 4.0); Vitamin B12 392 pg/mL (200-900)
[2022-08-07] MEDS: Hydrocortisone Sod Succ/PF 100 MG VIAL IVPUSH (19:21)
--- NOTE | 2022-08-07 19:49 | MHC.EDTECH ---
This tech assumed care of pt at 1900,pt ambulated to BR with 1 assist,and a steady gait. Vitals taken and pt is resting comfortably at this time. Call laird within reach
--- NOTE | 2022-08-07 21:39 | PC.NURSE ---
this rn gave rn to rn report to icu. this rn and additional rn prepared to transport pt to bed assignment. 20g IV in R AC found to be infiltrated. this rn placed 20g IV in R FA. infiltrated IV removed prior to transport
[2022-08-07 21:44] LABS: Glucose, Whole Blood 162 mg/dL (60-115)
[2022-08-08] VITALS (21 sets, daily range): BP systolic 110–190; BP diastolic 55–96; PULSE 61–83; RESP 15–22; TEMP 36.6–37; O2SAT 91–97; BMI 21.2
[2022-08-08 05:16] LABS: VBG Base Excess 5.2 mmol/L; VBG HCO3 26 mmol/L (22-26); VBG pCO2 28 mmHg; VBG pH 7.58 (7.32-7.43); VBG pO2 89 mmHg
[2022-08-08 05:18] LABS: Venous Blood Gas Refer to POC result
[2022-08-08 05:31] LABS: MANUAL DIFF FLAG NO
[2022-08-08 05:35] LABS: Eosinophils Percent Auto 0.2 % (0-4); Imm Gran Abs Auto 0.02 X10*3/uL (0.00-0.03); Imm Gran Pct Auto 0.4 % (0.0-0.4); Lymphocytes Absolute Auto 0.7 X10*3/uL (1.2-4.9); Lymphocytes Percent Auto 12.2 % (20-40); Mean Corpuscular HGB Conc 29.2 g/dl (31.0-35.0); Mean Corpuscular Hemoglobin 19.9 pg (27.0-33.0); Mean Corpuscular Volume 68.2 fL (80.0-98.0); Mean Platelet Volume 10.9 fL (9.4-12.3); Monocytes Absolute Auto 0.2 X10*3/uL (0.1-1.2); Monocytes Percent Auto 3.9 % (2-11); Neutrophils Absolute Auto 4.5 x10*3/uL (2.0-8.3); Neutrophils Percent Auto 83.3 % (45-73); Platelet Count 241 X10*3/uL (160-400); Red Blood Count 3.52 X10*6/uL (4.20-5.50); Red Cell Distribution Width 16.3 % (11.0-16.0); White Blood Count 5.4 X10*3/uL (4.8-10.8)
[2022-08-08 05:54] LABS: Alanine Aminotransferase 10 U/L (0-31); Albumin Level 3.5 g/dL (3.5-5.0); Alkaline Phosphatase 65 U/L (39-117); Anion Gap 12 (12-20); Aspartate Amino Transferase 14 U/L (5-31); Bilirubin Total 0.6 mg/dL (0.0-1.0); Blood Urea Nitrogen 14 mg/dL (9-16); Calcium 8.9 mg/dL (8.4-10.2); Carbon Dioxide 25 mmol/L (22-29); Chloride 110 mmol/L (96-108); Cholesterol 109 mg/dL; Creatinine Clr Calc Pharmacy 73.7; Estimated Glomerular Filt Rate > 60; Glucose Random 129 mg/dL (60-115); HDL Cholesterol 39 mg/dL; Magnesium 2.1 mg/dL (1.6-2.6); Phosphorus 4.5 mg/dL (2.7-4.5); Potassium 3.2 mmol/L (3.3-5.1); Sodium 144 mmol/L (135-145); Total Protein 5.3 g/dL (6.5-8.0); Triglycerides 74 mg/dL
--- NOTE | 2022-08-08 06:23 | PC.NURSE ---
CARE ASSUMED 23:15..AWAKE..ALERT..ORIENTED X3..DUNHAM..REPOSITIONS SELF IN BED AD-TANYA...SPEECH REMAINS WITH SLIGHT SLURRING...DRINKING WATER W/O DIFFICULTY..PREVIOUSL BLADDER SCANNED BY 3-11 RN FOR 428ml...STRAIGHT CATH'C 12AM FOR 450ML YELLOW URINE...C/O BLADDER FULLNESS WITH RESOLUTION OF DISCOMFORT AFTER CATH'D...DENIES URGE TO VOID THIS AM BUT DENIES DISCOMFORT...BP STABLE..MAP 80'S-90'S OVERNIGHT...AM HG DROPPED FRO, 8.2--7.0...ICU UX UI DESIGNER AWARE..FOR TYPE AND SCREEN...SERIAL NEORO CHECKS STABLE REPORTS MINIMAL TO NO HEADACHE OVERNIGHT
[2022-08-08 06:50] LABS: Prothrombin Time Whole Bld POC 12.6 sec (11.1-13.5); ~PT, ~INR - Anti Coag Clinic 1.1 (0.9-1.1)
--- NOTE | 2022-08-08 07:00 | CA_ITS ---
Transthoracic Echocardiogram Patient (Last, First, Middle): Briseida Reich A Gender: Female Date of : 1945 Age: 77 Procedure Date: 08/08/2022 Procedure Type: Transthoracic Echocardiogram Location: ICU Height: 160.02 cm Weight: 53.98 kg BSA: 1.55 m2 Heart Rate: bpm BP: 121 / 67 mmHg Kindergartner: SB Referring MD: Valeriy Madison MD Symptoms: new cva Study Quality: Adequate ECG Rhythm: Sinus Conclusions: - The calculated ejection fraction is 62% by biplane method. There is no evidence of regional wall motion abnormalities. - There is mild to moderate aortic valve regurgitation. - There is mild dilatation of the ascending aorta measuring 4.30 cm. Findings Left Ventricle Normal left ventricular cavity size. The left ventricular systolic function is normal. The calculated ejection fraction is 62% by biplane method. There is no evidence of regional wall motion abnormalities. Diastolic function is indeterminate on the basis of available data. There is mild septal asymmetric hypertrophy. Right Ventricle Normal right ventricular cavity size and systolic function. Atria The left atrium is moderately dilated. The right atrium is normal in size. Aortic Valve There is a normal trileaflet aortic valve. There is no aortic valve stenosis. There is mild to moderate aortic valve regurgitation. Mitral Valve The mitral valve appears normal. There is mild mitral annular calcification. There is trace mitral valve regurgitation. There is no mitral valve stenosis. Pulmonic Valve There is trace pulmonic valve regurgitation. Tricuspid Valve There is trace tricuspid valve regurgitation. Tricuspid regurgitation envelope is inadequate for calculation of right ventricular systolic pressure. Great Vessels There is mild dilatation of the ascending aorta measuring 4.30 cm. Venous The inferior vena cava is normal in size and collapses greater than 50% with inspiration. Pericardium/Pleural There is no evidence of pericardial effusion. Prior Study Comparison No prior study available for comparison. Measurements 2D Linear Measurements IVSd: 1.22 0.6-0.9/0.6-1.0 cm LVIDd: 5.45 3.9-5.3/4.2-5.9 cm LVIDd Index: 3.52 2.4-3.2/2.2-3.1 cm/m2 LVIDs: 3.25 2.0-3.6 cm LVPWd: 0.85 0.7-1.1 cm Ao Root: 3.50 2.1-3.5 cm LA Diam: 4.30 2.7-3.8/3.0-4.0 cm LAIDs Index: 2.77 1.5-2.3 cm/m2 LV Mass: 273.56 67-162/88-224 g LV Mass Index: 176.49 43-95/49-115 g/m2 LVOT Diam: 2.00 3.0+(-)1.3 cm 2D Systolic Function EF 4C: 66.50 >55% EF 2C: 56.70 >55% EF BiP: 61.80 >55% Mitral Valve MV Pk E: 0.81 MV PK A: 1.31 MV Decel Time: 176.00 E/A: 0.60 E'Lateral: 6.31 E'Medial: 5.22 E/E' Med: 15.60 E/E' Lat: 12.90 PHT: 52.00 MVA PHT: 4.23 Decel Evangeline: 4.62 Aortic Valve AoV Pk Timothy: 1.61 AoV Mn Timothy: 0.97 AoV VTI: 0.29 AoV Pk Grad: 10.00 Aov Mn Grad: 4.00 GISSELLE Cont.VTI: 3.93 AI Pk Timothy: 4.45 AI VTI: 2.12 AI Evangeline: 2.87 AI Alias Timothy: 0.39 AI RV - PISA: 30.00 ERO - PISA: 14.00 LVOT LVOT Pk Timothy: 1.74 LVOT Mn Timothy: 1.11 LVOT VTI: 0.36 LVOT Pk Grad: 12.00 LVOT Mn Grad: 6.00 LVOT Diam: 2.00 LVOT Area: 3.14 Diastolic Function MV Pk E: 0.81 MV Pk A: 1.31 E/A: 0.60 E'Medial: 5.22 E/E' Med: 15.60 E' Laterial: 6.31 E/E' Lat: 12.90 Right Ventricle TVS' Timothy: 18.60 Great Vessels Aorta Ao Root-2D: 3.50 2.0-3.7 cm Ao Asc: 4.30 2.1-3.4 cm Pulmonary Valve PV Pk Timothy: 1.18 Peak PV Grad: 6.00 Updated in Other Vendor System with Status of Final Silvano Rowland MD electronically signed on 08/08/2022 10:36:37 AM with status of Final
[2022-08-08] MEDS: Potassium Chloride Packet 20 MEQ PACKET 40 MEQ PO (07:29)
[2022-08-08] MEDS: Ferrous Sulfate 324 MG TABLET.DR PO ×3 (07:29→16:01)
[2022-08-08 08:23] LABS: Lactate Dehydrogenase 169 U/L (122-220)
[2022-08-08] MEDS: cefTRIAXone sodium 1 GM in 0.9 % Sodium Chloride 50 ML IV (08:36)
--- NOTE | 2022-08-08 09:57 | PM.CCPN ---
Subjective Subjective Date of Service: 08/08/22 Interval History: 77-year-old lady with underlying history of left-sided Eddy palsy, hypertension, diabetes mellitus admitted on 08/07/2022 with slurring of her speech in right upper extremity weakness secondary to CVA, status post tPA at approximately 14:00 on 08/08/2022, monitored in the intensive care unit the after. Patient did have an allergic reaction to tPA requiring Benadryl. Now resolved. Overnight with improvement in speech, but still with right upper extremity weakness. MRI is pending. Critical Care Time (minutes): 0 Physical Exam Vital Signs: Vital Signs: Last Vital Signs Temp 98 F 08/08/22 09:52 Pulse 70 08/08/22 09:52 Resp 18 08/08/22 09:52 BP 144/83 H 08/08/22 09:52 Pulse Ox 93 08/08/22 09:00 O2 Del Method Room Air 08/08/22 09:00 BMI result Body Mass Index 21.2 Const: General: no acute distress, alert and awake Eyes: Sclerae: sclerae normal EOM: EOMs intact bilaterally Neck: Neck: Yes no lymphadenopathy, Yes trachea midline and Yes supple Resp: Effort & Inspection: normal respiratory effort and no respiratory distress Auscultation: clear to auscultation bilaterally Cardio: Rate: regular rate Rhythm: regular rhythm Heart sounds: no gallops, no murmurs and no rubs GI: Palpation (GI): Soft to palpation and Other GI palpation findings present ( Nontender) Auscultation: normal bowel sounds Neuro: Other: Mild slowing exacerbation, right upper extremity 4/5, left UE 5/5 Extrem: General: Yes no pedal edema, No clubbing and No cyanosis Objective Data Labs 08/08/22 05:09 08/08/22 05:09 Labs: Laboratory Results - last 24 hr 08/07/22 08/07/22 08/07/22 12:13 12:13 12:13 WBC 6.9 RBC 4.14 L Hgb 8.2 L Hct 28.4 L MCV 68.6 L MCH 19.8 L MCHC 28.9 L RDW 16.2 H Plt Count 147 L D MPV 10.9 Immature Gran % (Auto) 0.3 Neut % (Auto) 72.5 Lymph % (Auto) 16.8 L [place] % (Auto) 4.5 Eos % (Auto) 5.8 H Baso % (Auto) 0.1 Lymph # (Auto) 1.2 [place] # (Auto) 0.3 Eos # (Auto) 0.4 Baso # (Auto) 0.0 Abs Immat Gran (auto) 0.02 Absolute Neuts (auto) 5.0 Absolute Nucleated RBC 0.000 Nucleated RBC % (auto) 0.0 PT 10.5 Whole Blood PT INR 0.9 Whole Blood INR APTT 23.7 L VBG pH VBG pCO2 VBG pO2 VBG HCO3 VBG O2 Saturation VBG Base Excess Sodium 143 Potassium 4.2 Chloride 109 H Carbon Dioxide 22 Anion Gap 16 BUN 10 Creatinine 0.57 Estim Creat Clear Calc 67.2 Estimated GFR > 60 POC Glucose Random Glucose 115 Calcium 9.4 Phosphorus Magnesium Iron TIBC % Saturation Unsat Iron Binding Total Bilirubin AST ALT Alkaline Phosphatase Lactate Dehydrogenase Total Creatine Kinase 41 Troponin I High Sens Total Protein Albumin Triglycerides Cholesterol HDL Cholesterol Vitamin B12 Folate Urine Color Urine Appearance Urine pH Ur Specific [place] Urine Protein Urine Glucose (UA) Urine Ketones Urine Blood Urine Nitrite Ur Leukocyte Esterase Urine RBC Urine WBC Ur Squamous Epith Cells Urine Bacteria Hyaline Casts Urine Opiates Screen Urine Fentanyl Screen Ur Barbiturates Screen Ur Phencyclidine Scrn Ur Amphetamines Screen U Benzodiazepines Scrn Urine Cocaine Screen U Marijuana (THC) Screen Blood Type Antibody Screen STEPHEN, Polyspecific Positive STEPHEN Work-up Crossmatch 08/07/22 08/07/22 08/07/22 12:13 12:13 12:29 WBC RBC Hgb Hct MCV MCH MCHC RDW Plt Count MPV Immature Gran % (Auto) Neut % (Auto) Lymph % (Auto) [place] % (Auto) Eos % (Auto) Baso % (Auto) Lymph # (Auto) [place] # (Auto) Eos # (Auto) Baso # (Auto) Abs Immat Gran (auto) Absolute Neuts (auto) Absolute Nucleated RBC Nucleated RBC % (auto) PT Whole Blood PT 12.6 INR Whole Blood INR 1.1 APTT VBG pH VBG pCO2 VBG pO2 VBG HCO3 VBG O2 Saturation VBG Base Excess Sodium Potassium Chloride Carbon Dioxide Anion Gap BUN Creatinine Estim Creat Clear Calc Estimated GFR POC Glucose 101 Random Glucose Calcium Phosphorus Magnesium Iron TIBC % Saturation Unsat Iron Binding Total Bilirubin AST ALT Alkaline Phosphatase Lactate Dehydrogenase Total Creatine Kinase Troponin I High Sens 3.1 Total Protein Albumin Triglycerides Cholesterol HDL Cholesterol Vitamin B12 Folate Urine Color Urine Appearance Urine pH Ur Specific [place] Urine Protein Urine Glucose (UA) Urine Ketones Urine Blood Urine Nitrite Ur Leukocyte Esterase Urine RBC Urine WBC Ur Squamous Epith Cells Urine Bacteria Hyaline Casts Urine Opiates Screen Urine Fentanyl Screen Ur Barbiturates Screen Ur Phencyclidine Scrn Ur Amphetamines Screen U Benzodiazepines Scrn Urine Cocaine Screen U Marijuana (THC) Screen Blood Type Antibody Screen STEPHEN, Polyspecific Positive STEPHEN Work-up Crossmatch 08/07/22 08/07/22 08/07/22 13:10 13:10 17:16 WBC RBC Hgb Hct MCV MCH MCHC RDW Plt Count MPV Immature Gran % (Auto) Neut % (Auto) Lymph % (Auto) [place] % (Auto) Eos % (Auto) Baso % (Auto) Lymph # (Auto) [place] # (Auto) Eos # (Auto) Baso # (Auto) Abs Immat Gran (auto) Absolute Neuts (auto) Absolute Nucleated RBC Nucleated RBC % (auto) PT Whole Blood PT INR Whole Blood INR APTT VBG pH VBG pCO2 VBG pO2 VBG HCO3 VBG O2 Saturation VBG Base Excess Sodium Potassium Chloride Carbon Dioxide Anion Gap BUN Creatinine Estim Creat Clear Calc Estimated GFR POC Glucose Random Glucose Calcium Phosphorus Magnesium Iron 13 L TIBC 344 % Saturation 4 L Unsat Iron Binding 331 Total Bilirubin AST ALT Alkaline Phosphatase Lactate Dehydrogenase Total Creatine Kinase Troponin I High Sens Total Protein Albumin Triglycerides Cholesterol HDL Cholesterol Vitamin B12 Folate Urine Color Yellow Urine Appearance Clear Urine pH 6.5 Ur Specific [place] <= 1.005 Urine Protein Negative Urine Glucose (UA) Negative Urine Ketones Negative Urine Blood Negative Urine Nitrite Positive H Ur Leukocyte Esterase Large (3+) H Urine RBC 0-2 Urine WBC 11-20 H Ur Squamous Epith Cells 3-5 Urine Bacteria 4+ Hyaline Casts 0-2 Urine Opiates Screen Not Detected Urine Fentanyl Screen Not Detected Ur Barbiturates Screen Not Detected Ur Phencyclidine Scrn Not Detected Ur Amphetamines Screen Not Detected U Benzodiazepines Scrn Not Detected Urine Cocaine Screen Not Detected U Marijuana (THC) Screen Not Detected Blood Type Antibody Screen STEPHEN, Polyspecific Positive STEPHEN Work-up Crossmatch 08/07/22 08/07/22 08/08/22 17:16 21:40 05:06 WBC RBC Hgb Hct MCV MCH MCHC RDW Plt Count MPV Immature Gran % (Auto) Neut % (Auto) Lymph % (Auto) [place] % (Auto) Eos % (Auto) Baso % (Auto) Lymph # (Auto) [place] # (Auto) Eos # (Auto) Baso # (Auto) Abs Immat Gran (auto) Absolute Neuts (auto) Absolute Nucleated RBC Nucleated RBC % (auto) PT Whole Blood PT INR Whole Blood INR APTT VBG pH 7.58 H VBG pCO2 28 VBG pO2 89 VBG HCO3 26 VBG O2 Saturation 100.0 VBG Base Excess 5.2 Sodium Potassium Chloride Carbon Dioxide Anion Gap BUN Creatinine Estim Creat Clear Calc Estimated GFR POC Glucose 162 H Random Glucose Calcium Phosphorus Magnesium Iron TIBC % Saturation Unsat Iron Binding Total Bilirubin AST ALT Alkaline Phosphatase Lactate Dehydrogenase Total Creatine Kinase Troponin I High Sens Total Protein Albumin Triglycerides Cholesterol HDL Cholesterol Vitamin B12 392 Folate 11.3 Urine Color Urine Appearance Urine pH Ur Specific [place] Urine Protein Urine Glucose (UA) Urine Ketones Urine Blood Urine Nitrite Ur Leukocyte Esterase Urine RBC Urine WBC Ur Squamous Epith Cells Urine Bacteria Hyaline Casts Urine Opiates Screen Urine Fentanyl Screen Ur Barbiturates Screen Ur Phencyclidine Scrn Ur Amphetamines Screen U Benzodiazepines Scrn Urine Cocaine Screen U Marijuana (THC) Screen Blood Type Antibody Screen STEPHEN, Polyspecific Positive STEPHEN Work-up Crossmatch 08/08/22 08/08/22 08/08/22 05:09 05:09 05:09 WBC 5.4 RBC 3.52 L Hgb 7.0 L* Hct 24.0 L MCV 68.2 L MCH 19.9 L MCHC 29.2 L RDW 16.3 H Plt Count 241 D MPV 10.9 Immature Gran % (Auto) 0.4 Neut % (Auto) 83.3 H Lymph % (Auto) 12.2 L [place] % (Auto) 3.9 Eos % (Auto) 0.2 Baso % (Auto) 0.0 Lymph # (Auto) 0.7 L [place] # (Auto) 0.2 Eos # (Auto) 0.0 Baso # (Auto) 0.0 Abs Immat Gran (auto) 0.02 Absolute Neuts (auto) 4.5 Absolute Nucleated RBC 0.000 Nucleated RBC % (auto) 0.0 PT Whole Blood PT INR Whole Blood INR APTT VBG pH VBG pCO2 VBG pO2 VBG HCO3 VBG O2 Saturation VBG Base Excess Sodium 144 Potassium 3.2 L D Chloride 110 H Carbon Dioxide 25 Anion Gap 12 BUN 14 Creatinine 0.52 Estim Creat Clear Calc 73.7 Estimated GFR > 60 POC Glucose Random Glucose 129 H Calcium 8.9 Phosphorus 4.5 Magnesium 2.1 Iron TIBC % Saturation Unsat Iron Binding Total Bilirubin 0.6 AST 14 ALT 10 Alkaline Phosphatase 65 Lactate Dehydrogenase Total Creatine Kinase Troponin I High Sens Total Protein 5.3 L Albumin 3.5 Triglycerides 74 Cholesterol 109 HDL Cholesterol 39 Vitamin B12 Folate Urine Color Urine Appearance Urine pH Ur Specific [place] Urine Protein Urine Glucose (UA) Urine Ketones Urine Blood Urine Nitrite Ur Leukocyte Esterase Urine RBC Urine WBC Ur Squamous Epith Cells Urine Bacteria Hyaline Casts Urine Opiates Screen Urine Fentanyl Screen Ur Barbiturates Screen Ur Phencyclidine Scrn Ur Amphetamines Screen U Benzodiazepines Scrn Urine Cocaine Screen U Marijuana (THC) Screen Blood Type Antibody Screen STEPHEN, Polyspecific Positive STEPHEN Work-up Crossmatch 08/08/22 08/08/22 08/08/22 05:09 07:39 07:39 WBC RBC Hgb Hct MCV MCH MCHC RDW Plt Count MPV Immature Gran % (Auto) Neut % (Auto) Lymph % (Auto) [place] % (Auto) Eos % (Auto) Baso % (Auto) Lymph # (Auto) [place] # (Auto) Eos # (Auto) Baso # (Auto) Abs Immat Gran (auto) Absolute Neuts (auto) Absolute Nucleated RBC Nucleated RBC % (auto) PT Whole Blood PT INR Whole Blood INR APTT VBG pH VBG pCO2 VBG pO2 VBG HCO3 VBG O2 Saturation VBG Base Excess Sodium Potassium Chloride Carbon Dioxide Anion Gap BUN Creatinine Estim Creat Clear Calc Estimated GFR POC Glucose Random Glucose Calcium Phosphorus Magnesium Iron TIBC % Saturation Unsat Iron Binding Total Bilirubin AST ALT Alkaline Phosphatase Lactate Dehydrogenase 169 Total Creatine Kinase Troponin I High Sens Total Protein Albumin Triglycerides Cholesterol HDL Cholesterol Vitamin B12 Folate Urine Color Urine Appearance Urine pH Ur Specific [place] Urine Protein Urine Glucose (UA) Urine Ketones Urine Blood Urine Nitrite Ur Leukocyte Esterase Urine RBC Urine WBC Ur Squamous Epith Cells Urine Bacteria Hyaline Casts Urine Opiates Screen Urine Fentanyl Screen Ur Barbiturates Screen Ur Phencyclidine Scrn Ur Amphetamines Screen U Benzodiazepines Scrn Urine Cocaine Screen U Marijuana (THC) Screen Blood Type A Positive Antibody Screen NEGATIVE STEPHEN, Polyspecific NEGATIVE Cancelled Positive STEPEHN Work-up TNP Cancelled Crossmatch See Detail Progress Note: A&P Assessment and plan (1) Cerebrovascular accident: Status: Acute (2) Thrombocytopenia: Status: Acute (3) Type 2 diabetes mellitus: Status: Acute (4) Hypothyroidism: Status: Acute (5) Hypertension: Status: Acute Plan Assessment: 77-year-old lady admitted with acute CVA, now status post tPA, with residual right upper extremity weakness Plan: Neuro: CVA, status post tPA. Neurology service care appreciated. MRI is pending. Residual right upper extremity weakness. Cardiac: No acute issues. Underlying hypertension. Pulmonary: No acute issues. Renal: No acute issues. Endo: No acute issues. Underlying diabetes mellitus. GI: No acute issues. ID: UTI, now on ceftriaxone. Heme/Onc: No acute issues. Psych: No acute issues. Miscellaneous: No acute issues. Prophylaxis: Pneumatic compression Diet: pending swallow evaluation Quality Stroke Does the patient have a stroke diagnosis?: Yes Reason for No Anti-thrombotic by Day Two: Not indicated ( acute anemia) VTE Prior VTE?: No VTE Risk Level:: Medical - low VTE Device Contraindication: N/A - Device Ordered VTE Drug Contraindication: Treatment Not Indicated
--- NOTE | 2022-08-08 11:01 | MHC.CM.PN ---
This creative services writer met with patient and staff from [facility]. Patient lives in apartment alone, although does have staff that visits her frequently during the day. Patient is alone in the apartment overnight. IMM delivered. HCP requested. Patient is open to VNA as appropriate. D/C plan- Home with resumption of services, VNA as appropriate. Transportation-[facility] will transport place call to [facility] ([phone]) or [facility] ([phone]). CM will continue to follow for d/c planning needs.
[2022-08-08 11:37] LABS: Cholesterol 108 mg/dL; HDL Cholesterol 36 mg/dL; LDL Cholesterol Calculated 56 mg/dl; Triglycerides 84 mg/dL
--- NOTE | 2022-08-08 12:21 | MHC.STROKE ---
Addendum entered by Brit Sargent RN 08/08/22 15:56: CONFIRMED WITH DR. MILES THAT THE PRIMARY REASON FOR TPA > 60M WAS DUE TO DIFFICULT IV ACCESS. Addendum entered by Brit Sargent RN 08/08/22 15:54: I MET WITH THE PATIENT AFTER REVIEWING THE MRI WITH DR. ALFARO. I EXPLAINED THE RESULTS OF THE SCAN. I ANSWERED HER QUESTIONS. Original Note: 08/07/22 EMS PRE-NOTIFICATION STROKE ALERT RIGHT SIDED WEAKNESS STARTED AROUND 1130. ARRIVED [facility] AT 1207, SEEN BY PROVIDER AND NIHSS = 4 RIGHT FACE, ARM, LEG, SLIGHT SLURRED SPEECH. STROKE PROTOCOL ACTIVATED. CTH 1216, REPORT AT 1229. 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 SPOKE WITH DR ALFARO AND HE SAID THE DELAY IN TPA-ALTEPLASE > 60MIN, DUE TO CLARIFICATION OF SEVERITY OF SYMPTOMS AND SETHI'S PALSY, NIHSS = 4, IT WAS DETERMINED TO GIVE TPA-ALTEPLASE ORDERED AT 1228, IV BOLUS 4.8MG GIVEN AT 1323 FOLLOW BY 1HR INFUSION AND FOLLOW UP WITH A CTA H/N, NO LVO. REPEAT CTH DONE, NO BLEED. SHE PASSED NURSING SWALLOW SCREEN TWICE, SHE HAS BEEN NPO AND WILL BE SEEN BY SPEECH. I REVIEWED ALL THE POST-TPA ORDERS WITH DR PAGAN. I MET WITH THE PATIENT AND SHE WAS VERY ALERT AND ARTICULATE REGARDING HER DIAGNOSIS AND PROGRESSION OF EVENTS. I REINFORCED THE STROKE EDUCATION AND BOOKLET. REVIEWED HER PLAN OF CARE. I WILL MEET WITH HER AGAIN AFTER HER MRI.
--- NOTE | 2022-08-08 12:58 | P.CDIM_ITS ---
PROVIDER RESPONSE TEXT: To clarify, the appropriate diagnosis supported by the clinical indicators: Other (explain): Acute anemia on the background of chronic iron deficiency anemia QUERY TEXT: PHYSICIAN'S DOCUMENTATION REQUEST Date of Query: 08/08/2022 12:34 PM EDT Patient Name: Briseida Reich Admit Date: 08/07/2022 Dear Rosalino Byrd, A review of the medical record indicates additional documentation may be needed. Please review below and update the documentation accordingly. Clinical Indicators: H&H on 08/07/22: 8.2/28.4 H&H on 08/08/22: 7.0/24.0 tPA initiated on 08/07/22, discontinued Based on the above, could you clarify which of the following is the most likely type of anemia you ar e evaluating, treating, and/or monitoring? Acute blood loss anemia Acute blood loss anemia with baseline chronic anemia (specify type) Anemia of chronic disease indicate if neoplastic disease, CKD, or other Chronic iron deficiency anemia due to blood loss Vitamin B12 deficiency anemia indicate etiology, such as intrinsic factor deficiency, malabsorption, transcobalamin II deficiency, dietary, etc Folate deficiency anemia indicate etiology, such as dietary, drug-induced, etc Protein deficiency anemia Other (explain)Clinically unable to determine (explain)Thank you, Karime Carcamo RN Use of terms such as suspected, likely, concern for, or probable (associated with a specific diagnosi s that is being evaluated, monitored, or treated as if it exists) are acceptable and can be coded in the inpatient se tting, when documented at the time of discharge. Please use your independent medical judgment in providing your response. THIS QUERY IS PART OF THE PERMANENT MEDICAL RECORD
--- NOTE | 2022-08-08 12:58 | P.CDIM_ITS ---
PROVIDER RESPONSE TEXT: To clarify, the appropriate diagnosis supported by the clinical indicators: Hypokalemia QUERY TEXT: PHYSICIAN'S DOCUMENTATION REQUEST Date of Query: 08/08/2022 12:38 PM EDT Patient Name: Briseida Reich Admit Date: 08/07/2022 Dear Rosalino Byrd, A review of the medical record indicates additional documentation may be needed. Please review below and update the documentation accordingly. Clinical Indicators: The following diagnoses or signs and symptoms were noted in the patient record: Potassium level on 08/07/22: 4.2 Potassium level on 08/08/22: 3.2 Treated with Klor-Con 40 meq po once Based on the above, could you clarify the appropriate diagnosis, if significant, that supports the ab ove abnormalities and additional evaluation, monitoring, and/or treatment rendered: Hypokalemia Labs indicate a diagnosis of (please specify) Other (explain)Clinically unable to determine (explain)Thank you, Karime Carcamo RN Use of terms such as suspected, likely, concern for, or probable (associated with a specific diagnosi s that is being evaluated, monitored, or treated as if it exists) are acceptable and can be coded in the inpatient se tting, when documented at the time of discharge. Please use your independent medical judgment in providing your response. THIS QUERY IS PART OF THE PERMANENT MEDICAL RECORD
--- NOTE | 2022-08-08 13:19 | PM.EVENT ---
Event Note Date of Service: 08/08/22 Event Note: ICU transfer discussed , discussed with Dr. Byrd Stroke s/p TPA DM ss CAD asa, statin hypothyroidism, levothyroxine HTN lisinopril Time Spent With Patient Time: Total time managing care of this patient today ____ minutes.
--- NOTE | 2022-08-08 13:30 | PC.NURSE ---
Assumed care at 0700- Pt alert and oriented x 4. Following commands. PERRLA. DUNHAM with limited ROM on right arm, pt states that she has been having issues with this arm for a while and has gotten cortisone shots in the shoulder. + numbness and tingling on right arm and leg. OOB with 1 assist. PT/OT ST involved in care. Pt upset about slurred speech. Right facial droop noted. MRI brain completed. Received 1 unit RBC today for H&H 09/05. No bleeding noted. Left arm bruised. Neuro checks every hour s/p TPA yesterday. C/o headache in back of head. No nausea vomiting. Urine retention noted, needing straight cath, cloudy urine. Receiving IV Ceftriaxone. Afebrile. change management coordinator Sinus rhythm with BBB. Echo completed at bedside. On room air tolerating well. ST jhonyal completed, awaiting for diet to be ordered. Bed alarm on, safety maintained. Will be transferring to [facility] bed. See further assessment documentation.
--- NOTE | 2022-08-08 15:22 | ECG_ITS ---
Test Reason : chest pain Blood Pressure : / mmHG Vent. Rate : 071 BPM Atrial Rate : 071 BPM P-R Int : 164 ms QRS Dur : 118 ms QT Int : 434 ms P-R-T Axes : 008 -06 -14 degrees QTc Int : 471 ms Normal sinus rhythm Incomplete right bundle branch block ST & T wave abnormality, consider anterior ischemia Prolonged QT Abnormal ECG When compared with ECG of 07-AUG-2022 12:28, No significant change was found Referred By: Susi Thorpe Electronically Signed By:BURT DEWITT
[2022-08-08 15:56] LABS: Hemoglobin 8.9 g/dl (12.0-16.0)
[2022-08-08] MEDS: lisinopriL 20 MG TABLET PO (16:01)
[2022-08-08] MEDS: atenoloL 50 MG TABLET PO (16:01)
[2022-08-08 16:17] LABS: Troponin-I High Sensitivity 7.4 ng/L (<3.5-17.0)
--- NOTE | 2022-08-08 16:50 | MHC.SL.SWA ---
Speech Pathologist Impression: Risk of aspiration, oral phase dysphagia, dysarthria, aphasia Risk of Aspiration Due to: Neurological Condition Dysphasia Diet Status: UPGRADE from NPO to NDD3/THIN Liquid Consistency and Strategies for Safe Swallow: Liquid Intake Recommendation: Thin Liquid Intake Strategies: Small Sips No Straws Solid Food Consistency: Dietary Recommendations: Chopped/Advanced (NDD3) Additional Modifications to Solid Foods: Pt seen for BDE while in the ICU. Pt is edentulous. She displayed mildly prolonged mastication and left buccal pocketing, which pt was able to clear with sips of water. No overt s/s of aspiration on trials of solids and liquids. Recommend start on CHOPPED/ADVANCED solids (NDD3) served with sauces and gravies, THIN liquids, pills WHOLE one at a time w/ LIQUID. 1:1 supervision & aspiration precautions given risk d/t recent stroke. Pt presents w/ mild anomic aphasia and mild to moderate dysarthria. Recommend further speech-language screening at bedside. Recommendations sent to team (RN, RD, MD) via [employer] Message, written on board in pt's room. METAL CONTROL WORKER will continue to follow. Oral Medication Intake: Whole with Liquid Please contact the pharmacy regarding appropriate crushable or liquid drug formulations that are available whenever modified delivery is recommended. Compensatory Strategies and Precautions to be Taken for Safe Swallow: Sitting Upright (90 deg) Double Swallow No Straw Small Bites and Sips Alternate Liquids/Solids Rate of Ingestion Change Oral Check Avoid Specific Foods Supervision While Eating and Drinking for Safe Swallow: Total Supervision (1:1) Foods to Avoid: Hard, tough to chew solids, crunchy or sticky foods Swallowing Recommended Treatments: Compens. Strategy Educat. Recommendation for Speech: Inpatient Speech Therapy Speech Therapy through Rehab Facility Farm Management Agent Clinican/Clinical Fellow: No Supervisory Statement: I have reviewed and agree with the student/clinical fellow's documentation: N/A Speech Language Pathologist: Sidra Hood M.A., CCC-METAL CONTROL WORKER
[2022-08-09] MEDS: diphenhydrAMINE HCL 25 MG CAPSULE PO (02:52)
[2022-08-09 02:56] VITALS: BP 165/87; PULSE 72; RESP 18; TEMP 36.8; O2SAT 97
[2022-08-09] MEDS: Levothyroxine Sodium 88 MCG TABLET PO (05:49)
[2022-08-09 06:00] VITALS: BMI 20.7
[2022-08-09 06:49] LABS: Albumin Level 3.2 g/dL (3.5-5.0); Anion Gap 12 (12-20); Blood Urea Nitrogen 18 mg/dL (9-16); Calcium 8.7 mg/dL (8.4-10.2); Carbon Dioxide 23 mmol/L (22-29); Chloride 110 mmol/L (96-108); Creatinine Clr Calc Pharmacy 73.7; Estimated Glomerular Filt Rate > 60; Glucose Random 100 mg/dL (60-115); Phosphorus 3.1 mg/dL (2.7-4.5); Potassium 3.7 mmol/L (3.3-5.1); Sodium 141 mmol/L (135-145)
[2022-08-09 07:30] VITALS: BP 127/75; PULSE 68; RESP 20; TEMP 37.1; O2SAT 95
[2022-08-09] MEDS: lisinopriL 20 MG TABLET PO (08:34)
[2022-08-09] MEDS: Aspirin Enteric Coated 81 MG TABLET.DR PO (08:34)
[2022-08-09] MEDS: Cholecalciferol (Vitamin D3) 25 MCG TABLET 50 MCG PO (08:34)
[2022-08-09] MEDS: Atorvastatin Calcium 20 MG TABLET PO (08:34)
[2022-08-09] MEDS: Ferrous Sulfate 324 MG TABLET.DR PO ×2 (08:34→11:52)
[2022-08-09] MEDS: atenoloL 50 MG TABLET PO (08:34)
[2022-08-09] MEDS: cefTRIAXone sodium 1 GM in 0.9 % Sodium Chloride 50 ML IV (08:35)
[2022-08-09 09:22] LABS: Basophils Percent Auto 0.1 % (0-2); Eosinophils Absolute Auto 0.2 X10*3/uL (0.0-0.4); Eosinophils Percent Auto 3.3 % (0-4); Hematocrit 31.3 % (37.0-47.0); Hemoglobin 9.3 g/dl (12.0-16.0); Imm Gran Abs Auto 0.03 X10*3/uL (0.00-0.03); Imm Gran Pct Auto 0.4 % (0.0-0.4); Lymphocytes Absolute Auto 1.5 X10*3/uL (1.2-4.9); Lymphocytes Percent Auto 21.6 % (20-40); Mean Corpuscular HGB Conc 29.7 g/dl (31.0-35.0); Mean Corpuscular Hemoglobin 21.4 pg (27.0-33.0); Mean Corpuscular Volume 72.1 fL (80.0-98.0); Mean Platelet Volume 10.6 fL (9.4-12.3); Monocytes Absolute Auto 0.4 X10*3/uL (0.1-1.2); Monocytes Percent Auto 5.7 % (2-11); Neutrophils Absolute Auto 4.8 x10*3/uL (2.0-8.3); Neutrophils Percent Auto 68.9 % (45-73); Platelet Count 314 X10*3/uL (160-400); Red Blood Count 4.34 X10*6/uL (4.20-5.50); Red Cell Distribution Width 19.3 % (11.0-16.0)
[2022-08-09 09:30] LABS: MANUAL DIFF FLAG NO
[2022-08-09 11:16] VITALS: BP 124/74; PULSE 71; RESP 20; TEMP 38; O2SAT 98
--- NOTE | 2022-08-09 12:04 | MHC.CM.PN ---
Patient has been medically cleared for dc to acute rehab today. Patient will dc to [facility] today at 1:30 PM, via [facility]. CM met with Patient at bedside with 2 of her Service Net Workers and Patient is aware of and in agreement with the dc plan. CM has left a detailed message for HCP/Saray @ [phone], informing her of the dc plan. Last IMM addressed on 08/08/2022.
[2022-08-09] MEDS: Acetaminophen 325 MG TABLET 650 MG PO (12:49)
[2022-08-09] MEDS: Tamsulosin HCL 0.4 MG CAPSULE PO (12:49)
--- NOTE | 2022-08-09 12:56 | PM.DS ---
DS: Providers Provider Date of Service: 08/09/22 Date of admission: 08/07/22 17:10 Primary care physician: Sangeetha Sage MD Consults: 08/08/22 15:47 Consult to Neurology Routine Consulting Provider: [facility] Reason for consultation: CVA Has provider been notified: Yes DS: Diagnosis Discharge Diagnosis (1) Cerebrovascular accident: Status: Acute (2) Thrombocytopenia: Status: Acute (3) Type 2 diabetes mellitus: Status: Acute (4) Hypothyroidism: Status: Acute (5) Hypertension: Status: Acute DS: Summary Hospital Course Hospital Course: Acute pontine infarct likely aborted. Treated with tPA in the ICU with resolution of symptoms of dysarthria and weakness. Continue aspirin 81 mg daily and Plavix 75 mg daily. Good blood pressure control and statin. Short-term rehab for physical therapy. UTI. Citrobacter freundii, likely contaminant. Ceftin for 7 days. Urinary retention. Continue Flomax. Consider bladder scanning every shift Iron. Ferrous sulfate t.i.d. for 10 days then follow-up with primary care provider for further need for treatment Hypothyroidism. Levothyroxine Time Spent with Patient Time attestation: Total time managing care of this patient today ____ minutes. Discharge coordination time: Greater than 30 minutes Quality: Safe Use of Opioids Does Pt have an Active Cancer Diagnosis on the Problem List?: No Quality: Stroke Does the patient have a stroke diagnosis?: No Physical Exam Vital Signs: Vital Signs: Last Vital Signs Temp 100.4 F 08/09/22 11:16 Pulse 71 08/09/22 11:16 Resp 20 08/09/22 11:16 BP 124/74 08/09/22 11:16 Pulse Ox 98 08/09/22 11:16 O2 Del Method Room Air 08/09/22 11:16 BMI result Body Mass Index 20.7 Appearing in no acute distress head is normocephalic atraumatic eyes pupils are PERRLA sclera is anicteric mouth throat mucous membranes are intact and moist neck is supple no lymphadenopathy, no JVD noted lung sounds are clear to auscultation heart regular rate rhythm, clear S1, S2 positive bowel sounds, abdomen is soft, nontender neuro patient is alert x3, no focal deficits DS: Data Data Completed and Pending Labs on day of discharge: Laboratory Results - last 24 hr 06/08/08/22 08/09/22 15:44 15:44 06:27 WBC RBC Hgb 8.9 L D Hct 29.0 L D MCV MCH MCHC RDW Plt Count MPV Immature Gran % (Auto) Neut % (Auto) Lymph % (Auto) [place] % (Auto) Eos % (Auto) Baso % (Auto) Lymph # (Auto) [place] # (Auto) Eos # (Auto) Baso # (Auto) Abs Immat Gran (auto) Absolute Neuts (auto) Absolute Nucleated RBC Nucleated RBC % (auto) Sodium 141 Potassium 3.7 Chloride 110 H Carbon Dioxide 23 Anion Gap 12 BUN 18 H Creatinine 0.52 Estim Creat Clear Calc 73.7 Estimated GFR > 60 Random Glucose 100 Calcium 8.7 Phosphorus 3.1 Magnesium 2.0 Troponin I High Sens 7.4 D Albumin 3.2 L 08/09/22 08:25 WBC 7.0 RBC 4.34 D Hgb 9.3 L Hct 31.3 L MCV 72.1 L MCH 21.4 L MCHC 29.7 L RDW 19.3 H Plt Count 314 D MPV 10.6 Immature Gran % (Auto) 0.4 Neut % (Auto) 68.9 Lymph % (Auto) 21.6 [place] % (Auto) 5.7 Eos % (Auto) 3.3 Baso % (Auto) 0.1 Lymph # (Auto) 1.5 [place] # (Auto) 0.4 Eos # (Auto) 0.2 Baso # (Auto) 0.0 Abs Immat Gran (auto) 0.03 Absolute Neuts (auto) 4.8 Absolute Nucleated RBC 0.000 Nucleated RBC % (auto) 0.0 Sodium Potassium Chloride Carbon Dioxide Anion Gap BUN Creatinine Estim Creat Clear Calc Estimated GFR Random Glucose Calcium Phosphorus Magnesium Troponin I High Sens Albumin Discharge Plan Discharge Anticipated Discharge Date/Time: 08/09/22 12:44 Patient Disposition: Xfer Inpatient Rehab Fac Discharge Diagnosis: Central pontine stroke Referrals: [facility] [Other] - 1 Week Sangeetha Sage MD [Primary Care Provider] - 1 Week Discharge Medications: New tamsulosin 0.4 mg Capsule 0.4 mg PO DAILY Qty: 30 0RF ferrous sulfate 324 mg (65 mg iron) Tablet,Delayed Release (Dr/Ec) 324 mg PO TIDWM 10 Days Qty: 30 0RF clopidogrel [Plavix] 75 mg tablet 75 mg PO DAILY Qty: 30 0RF cefuroxime axetil 500 mg tablet 500 mg PO BID Qty: 14 0RF Continued lisinopril 20 mg tablet 1 tab PO DAILY cholecalciferol (vitamin D3) 50 mcg (2,000 unit) Tablet 50 mcg PO DAILY calcium carbonate [Oyster Shell Calcium] 500 mg calcium (1,250 mg) Tablet 500 mg PO DAILY hydrocortisone 2.5 % ointment 1 appl topical DAILY atorvastatin 20 mg tablet 20 mg PO DAILY levothyroxine 88 mcg tablet 88 mcg PO DAILY@0600 omega-3 fatty acids 1,000 mg capsule 1,000 mg PO DAILY atenolol 50 mg tablet 50 mg PO DAILY aspirin [Adult Low Dose Aspirin] 81 mg tablet,delayed release (DR/EC) 81 mg PO DAILY Discontinued ibuprofen 800 mg tablet 800 mg PO Q8H PRN (Reason: pain) 30 Days Qty: 90 3RF Discharge Orders: Discharge Order (Routine); Ordered 08/09/22 Ordered By: Susi Thorpe Diet: Advance to usual diet Activity on Discharge: As tolerated Stand Alone Forms: Patient Portal Discharge page Care Plan Goals: Physical therapy for maximum physical ability Health Concerns: Central pontine stroke Plan of Treatment: Follow-up with primary care provider as needed Take all medications as prescribed You have been started on Plavix You have been started on ferrous sulfate for iron supplementation 3 times a day for 10 days, follow-up with primary care provider for further need Been started on Flomax for urinary retention, recommend bladder scanning every shift assess for any urinary retention that may still be present Assessment: See discharge summary
[2022-08-09 23:03] LABS: LDL Cholesterol Direct 57 mg/dL (<100)
[2022-08-10 15:09] LABS: Haptoglobin 151 mg/dL (43-212)
== END 2022-08-09 13:46 | DRG 62 ==
LOC: HO.ED 15:22 → HO.EDOVER 17:20 → HO.ICU 20:51 → HO.EDOVER 08-08 09:12 → HO.ICU 08-08 10:33 → HO.IMC 08-08 12:46
PROVIDERS: Internal Medicine Pulmonary Disease; Registered Nurse Community Health; Admitting Provider Internal Medicine Cardiovascular Disease; Emergency Provider Emergency Medicine; PCP Internal Medicine; Visit Provider Nurse Practitioner Acute Care
DX: I63.9 Cerebral infarction, unspecified (principal); G81.91 Hemiplegia, unspecified affecting right dominant side; N39.0 Urinary tract infection, site not specified; E03.9 Hypothyroidism, unspecified; R47.81 Slurred speech; R29.704 NIHSS score 4; I10 Essential (primary) hypertension; D69.6 Thrombocytopenia, unspecified; L50.0 Allergic urticaria; T45.615A Adverse effect of thrombolytic drugs, initial encounter; E87.6 Hypokalemia; D50.9 Iron deficiency anemia, unspecified; E11.9 Type 2 diabetes mellitus without complications; R33.9 Retention of urine, unspecified; G51.0 Bell's palsy; F32.9 Major depressive disorder, single episode, unspecified; Z59.01 Sheltered homelessness; Z87.891 Personal history of nicotine dependence; Z79.82 Long term (current) use of aspirin; Z79.890 Hormone replacement therapy; Z79.899 Other long term (current) drug therapy
CPT/HCPCS: 36415; 70450; 70496; 70498; 70551; 71045; 80048; 80053; 80061; 80307; 81001; 82040; 82465; 82550; 82607; 82746; 82803; 82947; 83010; 83540; 83615; 83718; 83721; 83735; 84100; 84478; 84484; 85014; 85018; 85025; 85610; 85730; 86850; 86880; 86900; 86901; 86923; 87086; 87088; 87186; 92610; 93005; 93306; 97116; 97162; 97166; 97530; 97535; 99285; J0696; J1200; J2997; P9016; Q9967

== ENCOUNTER 2022-08-21 02:32 | Emergency (ER) | payer MEDICARE, MEDICAID, SELFPAY ==
--- NOTE | 2022-08-21 02:30 | PC.NURSE ---
Pt is a 77-year-old female who states that she has a headache but also has concerns regarding a rash that she is been struggling with for the past month. She denies any difficulty with swallowing or breathing or any facial swelling. No SOB, CP, weakness or N/V. Pt states that the rash she noticed does improve with Benadryl but when she states taking the medication the rash comes back.
[2022-08-21 02:43] VITALS: BP 124/82; BP 155/82; PULSE 68; PULSE 69; RESP 18; TEMP 37; O2SAT 98; BMI 20.7
--- NOTE | 2022-08-21 02:49 | PC.NURSE ---
Pt to ED for a Headache that feels like it might be a migraine type of headache and is concerned because she had a TIA last week and was released rehab on . Pt is also concerned with a rash she has developed throughout her body for about a month now and has not been able to control the burning and itching she is experiencing. Pt is AOX3, denies any numbness/tingling, feeling of faint, CP, SOB, weakness to either side of body or N/V.
[2022-08-21 02:53] VITALS: BP 155/82; PULSE 68; RESP 16; TEMP 37; O2SAT 97
--- NOTE | 2022-08-21 03:28 | ED.SKABFB ---
HPI - Skin/Abscess/Foreign Bdy General Chief complaint: Headache Stated complaint: rash and headache Time Seen by Provider: 08/21/22 03:11 Source: patient Mode of arrival: EMS History of Present Illness HPI narrative: 77-year-old female who states that she has a headache but also has concerns regarding a rash that she is been struggling with for the past month. She denies any difficulty with swallowing or breathing and denies any facial swelling, she reports that it does improve with Benadryl and describes it is being itchy. Related Data Home Medications Medication Instructions Recorded Confirmed aspirin 81 mg tablet,delayed 81 mg PO DAILY 10/13/21 08/07/22 release (Adult Low Dose Aspirin) atenolol 50 mg tablet 50 mg PO DAILY 10/13/21 08/07/22 atorvastatin 20 mg tablet 20 mg PO DAILY 10/13/21 08/07/22 levothyroxine 88 mcg tablet 88 mcg PO DAILY@0600 10/13/21 08/07/22 omega-3 fatty acids 1,000 mg 1,000 mg PO DAILY 10/13/21 08/07/22 capsule cholecalciferol (vitamin D3) 50 50 mcg PO DAILY 03/23/22 08/07/22 mcg (2,000 unit) tablet lisinopril 20 mg tablet 1 tab PO DAILY 03/23/22 08/07/22 calcium carbonate 500 mg calcium 500 mg PO DAILY 08/07/22 08/07/22 (1,250 mg) tablet (Oyster Shell Calcium) hydrocortisone 2.5 % topical 1 appl topical DAILY 08/07/22 08/07/22 ointment Previous Rx's Medication Instructions Recorded cefuroxime axetil 500 mg tablet 500 mg PO BID #14 tabs 08/09/22 clopidogrel 75 mg tablet (Plavix) 75 mg PO DAILY #30 tabs 08/09/22 ferrous sulfate 324 mg (65 mg 324 mg PO TIDWM 10 days #30 tabs 08/09/22 iron) tablet,delayed release tamsulosin 0.4 mg capsule 0.4 mg PO DAILY #30 caps 08/09/22 prednisone 5 mg tablet 5 mg PO DAILY 4 days #4 tabs 08/21/22 Allergies Allergy/AdvReac Type Severity Reaction Status Date / Time propoxyphene [From Darvon] Allergy Mild UNKNOWN Verified 06/17/22 08:07 alteplase AdvReac Intermediate Itching Verified 08/07/22 15:33 metformin [Metformin] AdvReac Mild DIARRHEA, Verified 06/17/22 08:07 RASH Review of Systems Review of Systems: Pertinent positives and negatives as stated in [facility] Past Medical History Source: nursing notes reviewed Medical History Adnexal mass Adult failure to thrive Anemia Cerebrovascular accident COVID-19 virus infection GERD (gastroesophageal reflux disease) Hernia High blood pressure Hypertension Hypothyroidism Intellectual disability Ischemic stroke Major depressive disorder Occult GI bleeding Osteoporosis Thrombocytopenia Type 2 diabetes mellitus Surgical History History of rectal surgery Social History Social History Household Members: None Housing: House Housing Other:: hotel Do you presently have visiting nurse or other home services: Yes Alcohol intake: never Patient Tobacco Use Status: Former Tobacco user Quit Date: 10+ years ago Tobacco use type: Cigarette Second Hand Smoke Exposure: No Advance Directives Date on File: 08/07/22 service: No Current occupational status: retired and disabled Physical Exam Vital Signs: Vital Signs: Last Vital Signs Temp 98.6 F 08/21/22 02:53 Pulse 68 08/21/22 02:53 Resp 16 08/21/22 02:53 BP 155/82 H 08/21/22 02:53 Pulse Ox 97 08/21/22 02:53 O2 Del Method Room Air 08/21/22 02:53 BMI result Body Mass Index 20.7 VITAL SIGNS: Reviewed. GENERAL: Well developed, well nourished, in no acute distress. HEAD: Normocephalic/atraumatic EYES: PERRLA, EOMI EARS: Ext canals without abnormality NOSE: Nares patent bilateral OROPHARYNX: no oral lesions noted, posterior pharynx clear, there is no facial/lip/tongue swelling NECK: Supple, no adenopathy LUNGS: No stridor, Normal breath sounds. No adventitious sounds or accessory muscle use. SpO2<97> CARDIOVASCULAR: Regular rate and rhythm without noted murmurs ABDOMEN: Soft, non-tender, non-distended with bowel sounds. MUSCULOSKELETAL: No tenderness, deformities, or effusions noted on gross inspection. EXTREMITIES: No cyanosis, clubbing or edema. SKIN: Inspection of the skin reveals maculopapular rash located on the trunk with smaller areas on extremities but no involvement of palms and soles. NEUROLOGIC: Alert and oriented x 4. Strength and sensation to light touch were grossly intact x 4, cranial nerves 2-12 are grossly intact. Medical Decision Making Medical Decision Making MDM Narrative: 77-year-old female with history and clinical presentation consistent with chronic maculopapular rash that is itchy in nature and improves with Benadryl. She denies any recent medication changes and states that is been ongoing since July. She was given Benadryl as well as a low-dose prednisone for which she will receive a prescription for 4 additional days with strict instructions to follow-up with primary care provider for referral to an pet handler to better characterize because of the rash. There are no concerns for airway such as angioedema/anaphylaxis and patient is otherwise hemodynamically stable and will be discharged back to the facility. Differential Diagnosis Please see the discussion above Discharge Plan Discharge Clinical Impression: Rash Patient Disposition: Home, Self-Care Instructions: Urticaria (ED) Additional Instructions: 1. Resume all home medications as prescribed. 2. I recommend [id number] Benadryl as needed for rash control. 3. Please complete the short course of steroids that you are being placed on. 4. Is imperative that you follow-up with your primary care provider and discuss a referral to an pet handler for further identification. Return to the ER for any worsening symptoms. Prescriptions: New prednisone 5 mg tablet 5 mg PO DAILY 4 Days Qty: 4 0RF No Action lisinopril 20 mg tablet 1 tab PO DAILY cholecalciferol (vitamin D3) 50 mcg (2,000 unit) Tablet 50 mcg PO DAILY calcium carbonate [Oyster Shell Calcium] 500 mg calcium (1,250 mg) Tablet 500 mg PO DAILY hydrocortisone 2.5 % ointment 1 appl topical DAILY tamsulosin 0.4 mg Capsule 0.4 mg PO DAILY Qty: 30 0RF ferrous sulfate 324 mg (65 mg iron) Tablet,Delayed Release (Dr/Ec) 324 mg PO TIDWM 10 Days Qty: 30 0RF clopidogrel [Plavix] 75 mg tablet 75 mg PO DAILY Qty: 30 0RF cefuroxime axetil 500 mg tablet 500 mg PO BID Qty: 14 0RF atorvastatin 20 mg tablet 20 mg PO DAILY levothyroxine 88 mcg tablet 88 mcg PO DAILY@0600 omega-3 fatty acids 1,000 mg capsule 1,000 mg PO DAILY atenolol 50 mg tablet 50 mg PO DAILY aspirin [Adult Low Dose Aspirin] 81 mg tablet,delayed release (DR/EC) 81 mg PO DAILY
[2022-08-21 04:00] VITALS: BP 128/79; PULSE 78; RESP 16; TEMP 37; O2SAT 99
[2022-08-21 04:17] VITALS: BP 120/70; PULSE 70; RESP 16; TEMP 37; O2SAT 100
--- NOTE | 2022-08-21 04:51 | PC.NURSE ---
Pt has had a friend come to take her home safely. Pt ambulated well without difficulty. Pt states that her headache and rash has subsided and feels good to go home. Pt given Discharge instructions to F/u with PCP and also information about her Dx and the s/s of the disease process. Pt verbalized understanding, all questions answered. Pt in NAD.
== END 2022-08-21 04:51 | disposition home or self-care (01) ==
PROVIDERS: Emergency Provider Student in an Organized Health Care Education/Training Program; PCP Internal Medicine
DX: R21 Rash and other nonspecific skin eruption (principal); R51.9 Headache, unspecified; Z87.891 Personal history of nicotine dependence
CPT/HCPCS: 99283; 99284

== ENCOUNTER 2022-09-10 14:14 | Emergency (ER) | payer MEDICARE, MEDICAID, SELFPAY ==
[2022-09-10 14:21] VITALS: BP 177/74; BP 200/80; PULSE 63; PULSE 70; RESP 18; TEMP 36.5; O2SAT 96; BMI 20.8
--- NOTE | 2022-09-10 15:30 | PC.NURSE ---
Pt A&Ox4, reports itchiness and burning to hives all over body x 1 month. Pt states I've taken 100 Benadryls in two days and it does help then it comes back all over . Raised, redness hives noted mainly to neck area, bilateral arms and ABD. Pt denies SOB, speaking in full sentences. Denies any sick contact.
--- NOTE | 2022-09-10 15:58 | ED_ITS ---
HPI - Allergic Reaction General Chief complaint: Allergic Reaction Stated complaint: HIVES PER EMS Time Seen by Provider: 09/10/22 14:36 Source: patient and EMS Mode of arrival: EMS History of Present Illness HPI narrative: 77-year-old female who denies any recent medication changes arrives via ambulance from home reporting 1 month of hives there involve primarily her neck area but there are some spots on bilateral upper extremities and trunk. She otherwise denies any lip/tongue/facial swelling and denies any difficulty breathing or swallowing. She denies any recent clothing, lotion, soaps changes. And denies any fevers or chills. Related Data Home Medications Medication Instructions Recorded Confirmed aspirin 81 mg tablet,delayed 81 mg PO DAILY 10/13/21 08/07/22 release (Adult Low Dose Aspirin) atenolol 50 mg tablet 50 mg PO DAILY 10/13/21 08/07/22 atorvastatin 20 mg tablet 20 mg PO DAILY 10/13/21 08/07/22 levothyroxine 88 mcg tablet 88 mcg PO DAILY@0600 10/13/21 08/07/22 omega-3 fatty acids 1,000 mg 1,000 mg PO DAILY 10/13/21 08/07/22 capsule cholecalciferol (vitamin D3) 50 50 mcg PO DAILY 03/23/22 08/07/22 mcg (2,000 unit) tablet lisinopril 20 mg tablet 1 tab PO DAILY 03/23/22 08/07/22 calcium carbonate 500 mg calcium 500 mg PO DAILY 08/07/22 08/07/22 (1,250 mg) tablet (Oyster Shell Calcium) hydrocortisone 2.5 % topical 1 appl topical DAILY 08/07/22 08/07/22 ointment Previous Rx's Medication Instructions Recorded cefuroxime axetil 500 mg tablet 500 mg PO BID #14 tabs 08/09/22 clopidogrel 75 mg tablet (Plavix) 75 mg PO DAILY #30 tabs 08/09/22 ferrous sulfate 324 mg (65 mg 324 mg PO TIDWM 10 days #30 tabs 08/09/22 iron) tablet,delayed release tamsulosin 0.4 mg capsule 0.4 mg PO DAILY #30 caps 08/09/22 prednisone 5 mg tablet 5 mg PO DAILY 4 days #4 tabs 08/21/22 prednisone 5 mg tablet 5 mg PO DAILY 4 days #4 tabs 09/10/22 Allergies Allergy/AdvReac Type Severity Reaction Status Date / Time propoxyphene [From Darvon] Allergy Mild UNKNOWN Verified 09/10/22 14:32 alteplase AdvReac Intermediate Itching Verified 09/10/22 14:32 metformin [Metformin] AdvReac Mild DIARRHEA, Verified 09/10/22 14:32 RASH Review of Systems Review of Systems: Pertinent positives and negatives as stated in [facility] Past Medical History Source: nursing notes reviewed Medical History Adnexal mass Adult failure to thrive Anemia Cerebrovascular accident COVID-19 virus infection GERD (gastroesophageal reflux disease) Hernia High blood pressure Hypertension Hypothyroidism Intellectual disability Ischemic stroke Major depressive disorder Occult GI bleeding Osteoporosis Thrombocytopenia Type 2 diabetes mellitus Surgical History History of rectal surgery Social History Social History Household Members: None Housing: House Housing Other:: hotel Do you presently have visiting nurse or other home services: Yes Alcohol intake: never Patient Tobacco Use Status: Former Tobacco user Quit Date: 10+ years ago Tobacco use type: Cigarette Second Hand Smoke Exposure: No Advance Directives: Yes Advance Directives on File: Yes Advance Directives Date on File: 08/07/22 service: No Current occupational status: retired and disabled Physical Exam ED Vital Signs: Vital Signs - 24 hr 09/10/22 14:21 Temperature 97.7 F Pulse Rate 63 Respiratory Rate 18 Blood Pressure 177/74 H Pulse Oximetry 96 Oxygen Delivery Method Room Air BMI result Body Mass Index 20.8 VITAL SIGNS: Reviewed. GENERAL: Elderly, in no acute distress. HEAD: Normocephalic/atraumatic EYES: PERRLA, EOMI EARS: Ext canals without abnormality NOSE: Nares patent bilateral OROPHARYNX: no oral lesions noted, posterior pharynx clear NECK: Supple, no adenopathy LUNGS: Normal breath sounds. No adventitious sounds or accessory muscle use. SpO2<> CARDIOVASCULAR: Regular rate and rhythm without noted murmurs ABDOMEN: Soft, non-tender, non-distended with bowel sounds, a couple of raised rash area. MUSCULOSKELETAL: No tenderness, deformities, or effusions noted on gross inspection. EXTREMITIES: No cyanosis, clubbing or edema. SKIN: Inspection of the skin reveals raised erythematous spots to bilateral upper extremities, none noted on the back/palm size/soles but there are several located around the neck and 1 located at the lateral aspect the left eye. NEUROLOGIC: Alert and oriented x 4. Strength and sensation to light touch were grossly intact x 4. Medical Decision Making Medical Decision Making MDM Narrative: 77-year-old female with an urticarial rash of unclear etiology that she has been experiencing for 1 month and denies any association with new medications or products exposures although it is only a very limited distribution. Is not a typical hives and there does not appear to be any associated angioedema or anaphylaxis. There is not appear to be any related infectious etiology is patient denies any decrease in appetite/fevers/chills. Will provide patient with 25 mg of Benadryl and 10 mg of prednisone. She is then strongly encouraged to follow-up with primary care provider on Monday morning. Differential Diagnosis Differential Diagnoses: The differential diagnosis associated with the presentation includes Please see the discussion above Admission/Observation Consideration of admission/observation: Escalation of care including admission/observation considered Please see the discussion above External Record Review External record reviewed: Outpatient record and Prior outpatient labs Chronic Conditions Patient?s care impacted by: Hypertension Discharge Plan Discharge Clinical Impression: Urticarial rash Patient Disposition: Home, Self-Care Instructions: Contact Dermatitis (ED), Urticaria (ED) Additional Instructions: 1. Resume all home medications as prescribed. 2. Complete the short course of steroids as prescribed. 3. Please follow-up with your primary care provider to get a referral to see an vice president diversity to better understand where this rash is originating from. Return to the ER for any worsening of symptoms or symptoms that involve shortness of breath, facial swelling. Prescriptions: New prednisone 5 mg tablet 5 mg PO DAILY 4 Days Qty: 4 0RF No Action lisinopril 20 mg tablet 1 tab PO DAILY cholecalciferol (vitamin D3) 50 mcg (2,000 unit) Tablet 50 mcg PO DAILY calcium carbonate [Oyster Shell Calcium] 500 mg calcium (1,250 mg) Tablet 500 mg PO DAILY hydrocortisone 2.5 % ointment 1 appl topical DAILY tamsulosin 0.4 mg Capsule 0.4 mg PO DAILY Qty: 30 0RF ferrous sulfate 324 mg (65 mg iron) Tablet,Delayed Release (Dr/Ec) 324 mg PO TIDWM 10 Days Qty: 30 0RF clopidogrel [Plavix] 75 mg tablet 75 mg PO DAILY Qty: 30 0RF cefuroxime axetil 500 mg tablet 500 mg PO BID Qty: 14 0RF prednisone 5 mg tablet 5 mg PO DAILY 4 Days Qty: 4 0RF atorvastatin 20 mg tablet 20 mg PO DAILY levothyroxine 88 mcg tablet 88 mcg PO DAILY@0600 omega-3 fatty acids 1,000 mg capsule 1,000 mg PO DAILY atenolol 50 mg tablet 50 mg PO DAILY aspirin [Adult Low Dose Aspirin] 81 mg tablet,delayed release (DR/EC) 81 mg PO DAILY Referrals: Sangeetha Sage MD [Primary Care Provider] -
[2022-09-10] MEDS: diphenhydrAMINE HCL 25 MG CAPSULE PO (16:14)
[2022-09-10] MEDS: predniSONE 10 MG TABLET PO (16:14)
== END 2022-09-10 16:59 | disposition home or self-care (01) ==
PROVIDERS: Emergency Provider Student in an Organized Health Care Education/Training Program; PCP Internal Medicine
DX: L50.9 Urticaria, unspecified (principal); I10 Essential (primary) hypertension; E11.9 Type 2 diabetes mellitus without complications; Z87.891 Personal history of nicotine dependence; Z79.82 Long term (current) use of aspirin; Z79.899 Other long term (current) drug therapy
CPT/HCPCS: 99283; 99284

== ENCOUNTER 2022-09-21 08:04 | Emergency (ER) | payer MEDICARE, MEDICAID, SELFPAY ==
--- NOTE | ~2022-09-21 | US_ITS ---
EXAMINATION: US SOFT TISSUE LOWER EXTREMITY RIGHT CLINICAL INFORMATION: Right popliteal fossa swelling. COMPARISON: None TECHNIQUE: Multiple 2-D grayscale and color Doppler ultrasound images of the right popliteal fossa soft tissues were obtained. FINDINGS: A heterogeneous collection with smooth margins and horizontal orientation is seen in the right popliteal fossa measuring 6.6 x 2.9 x 4.2 cm. Color Doppler showed no significant associated vascular flow. The right popliteal vein appears patent. The surrounding soft tissues are unremarkable. US/US extremity nonvascular IMPRESSION: Complex-appearing right popliteal cyst demonstrated otherwise benign features. If pain persists or worsens, right knee MRI should be considered.
--- NOTE | ~2022-09-21 | XR_ITS ---
EXAMINATION: XR KNEE, RIGHT CLINICAL INFORMATION: Right knee pain. COMPARISON: 12/22/2021 right knee radiographs. TECHNIQUE: Four views of the right knee. FINDINGS: Mild tricompartmental degenerative joint changes are seen. There is no acute fracture or dislocation. There is a small suprapatellar joint effusion. The soft tissues are unremarkable. XR/XR knee RT 3V IMPRESSION: 1. Mild tricompartmental degenerative joint changes suggesting osteoarthritis. 2. Small suprapatellar joint effusion without acute osseous abnormality.
[2022-09-21 08:18] VITALS: BP 150/123; PULSE 74; RESP 18; TEMP 36.7; O2SAT 98; BMI 19.1
[2022-09-21 08:47] VITALS: BP 145/71; PULSE 82; RESP 18; TEMP 36.6; O2SAT 98
--- NOTE | 2022-09-21 08:50 | PC.NURSE ---
Alert and oriented. arrived from home with homehealth worker. patient reports 8/10 right knee pain that started yesterday and has progressively gotten worse. Patient states woke up this morning with swelling behind knee and on top of knee cap. Patient with old bruising noted on top of right burris. Denies fall, or walking into anything. Does not know what caused the swelling to top of knee.
--- NOTE | 2022-09-21 09:15 | PC.NURSE ---
Per Dr. Lina CARRERA
--- NOTE | 2022-09-21 09:40 | ED_ITS ---
HPI - Extremity Injury (Lower) General Chief Complaint: Extremity Injury, Lower Stated Complaint: R leg pain/swelling Time Seen by Provider: 09/21/22 08:36 Source: patient and other Mode of arrival: ambulatory History of Present Illness HPI Narrative: 77-year-old female who comes in with complaints of pain at her right knee and some mild swelling at the lateral aspect as well as behind the knee but denies any traumatic injury or fevers or chills but also points out old bruising to her lower leg. Related Data Home Medications Medication Instructions Recorded Confirmed aspirin 81 mg tablet,delayed 81 mg PO DAILY 10/13/21 08/07/22 release (Adult Low Dose Aspirin) atenolol 50 mg tablet 50 mg PO DAILY 10/13/21 08/07/22 atorvastatin 20 mg tablet 20 mg PO DAILY 10/13/21 08/07/22 levothyroxine 88 mcg tablet 88 mcg PO DAILY@0600 10/13/21 08/07/22 omega-3 fatty acids 1,000 mg 1,000 mg PO DAILY 10/13/21 08/07/22 capsule cholecalciferol (vitamin D3) 50 50 mcg PO DAILY 03/23/22 08/07/22 mcg (2,000 unit) tablet lisinopril 20 mg tablet 1 tab PO DAILY 03/23/22 08/07/22 calcium carbonate 500 mg calcium 500 mg PO DAILY 08/07/22 08/07/22 (1,250 mg) tablet (Oyster Shell Calcium) hydrocortisone 2.5 % topical 1 appl topical DAILY 08/07/22 08/07/22 ointment Previous Rx's Medication Instructions Recorded cefuroxime axetil 500 mg tablet 500 mg PO BID #14 tabs 08/09/22 clopidogrel 75 mg tablet (Plavix) 75 mg PO DAILY #30 tabs 08/09/22 ferrous sulfate 324 mg (65 mg 324 mg PO TIDWM 10 days #30 tabs 08/09/22 iron) tablet,delayed release tamsulosin 0.4 mg capsule 0.4 mg PO DAILY #30 caps 08/09/22 prednisone 5 mg tablet 5 mg PO DAILY 4 days #4 tabs 08/21/22 prednisone 5 mg tablet 5 mg PO DAILY 4 days #4 tabs 09/10/22 Allergies Allergy/AdvReac Type Severity Reaction Status Date / Time propoxyphene [From Darvon] Allergy Mild UNKNOWN Verified 09/21/22 08:23 alteplase AdvReac Intermediate Itching Verified 09/21/22 08:23 metformin [Metformin] AdvReac Mild DIARRHEA, Verified 09/21/22 08:23 RASH Review of Systems Review of Systems: Pertinent positives and negatives as stated in [facility] Past Medical History Source: nursing notes reviewed Medical History Adnexal mass Adult failure to thrive Anemia Cerebrovascular accident COVID-19 virus infection GERD (gastroesophageal reflux disease) Hernia High blood pressure Hypertension Hypothyroidism Intellectual disability Ischemic stroke Major depressive disorder Occult GI bleeding Osteoporosis Thrombocytopenia Type 2 diabetes mellitus Surgical History History of rectal surgery Social History Social History Household Members: None Housing: House Housing Other:: hotel Do you presently have visiting nurse or other home services: Yes Alcohol intake: never Patient Tobacco Use Status: Former Tobacco user Quit Date: 10+ years ago Tobacco use type: Cigarette Smoked in Last 30 Days: No Second Hand Smoke Exposure: No Use of substances other than those prescribed or required for medical reasons: No Advance Directives: Yes Advance Directives on File: Yes Advance Directives Date on File: 08/07/22 service: No Current occupational status: retired and disabled Physical Exam Vital Signs: Vital Signs: Last Vital Signs Temp 97.8 F 09/21/22 08:47 Pulse 82 09/21/22 08:47 Resp 18 09/21/22 10:08 BP 159/74 H 09/21/22 10:08 Pulse Ox 97 09/21/22 10:08 O2 Del Method Room Air 09/21/22 10:08 BMI result Body Mass Index 19.1 VITAL SIGNS: Reviewed. GENERAL: Well developed, well nourished, in no acute distress. HEAD: Normocephalic/atraumatic EYES: PERRLA, EOMI LUNGS: Normal breath sounds. No adventitious sounds or accessory muscle use. SpO2<98> CARDIOVASCULAR: Regular rate and rhythm without noted murmurs, no JVD or lower extremity edema. ABDOMEN: Soft, non-tender, non-distended with bowel sounds. MUSCULOSKELETAL: No tenderness, deformities, or effusions noted on gross inspection. EXTREMITIES: No cyanosis, clubbing or edema. RLE: No gross deformity but mild swelling noted at the superior lateral aspect of right knee, no erythema or induration, on standing there is palpable swelling within the popliteal fossa and I do note old ecchymosis to the medial aspect of the lower leg the demonstrates color change greens and yellows SKIN: Inspection of the skin reveals no rashes NEUROLOGIC: Alert and oriented x 4. Strength and sensation to light touch were grossly intact x 4. Medications Administered Discontinued Medications Generic Name Dose Route Start Last Admin Trade Name Freq PRN Reason Stop Dose Admin Acetaminophen 975 mg 09/21/22 09:07 09/21/22 10:05 Acetaminophen 325 Mg Tablet PO 09/21/22 09:08 975 mg ONCE ONE Administration Medical Decision Making Medical Decision Making MDM Narrative: 77-year-old female with history and clinical presentation, DDX: Mercado cyst, suprapatellar effusion, no clinical suspicion for fractures/dislocations/DVT. Patient is otherwise comfortable and there is no evidence of any infections. I reviewed all investigations, x-ray is negative for fracture or dislocation otherwise my interpretation is in agreement with radiology's interpretation a suprapatellar effusion that is mild in nature and will apply Kirby wrap to this. Ultrasound did identify a popliteal fossa cyst that can be further evaluated and worked up in the outpatient setting. Again this would be best addressed with an Kirby wrap which was applied to the patient prior to discharge. Differential Diagnosis Differential Diagnoses: The differential diagnosis associated with the presentation includes Please see the discussion above Admission/Observation Consideration of admission/observation: Escalation of care including admission/observation considered Please see the discussion above Independent Interpretation I performed an independent interpretation of an: Plain X-Ray and Ultrasound Interpretation: Please see the discussion above External Record Review External record reviewed: Outpatient record and Prior outpatient labs Discharge Plan Discharge Clinical Impression: Knee effusion, right, Mercado's cyst of knee Patient Disposition: Xfer Other Instructions: Bakers Cyst (ED), Swollen Knee Joint (ED) Additional Instructions: 1. Resume all home medications as prescribed. 2. Keep the Kirby wrap in place until you are further evaluated by your primary care doctor and/or physical therapy. You have a Mercado cyst and a small knee swelling that will be best addressed with an Kirby wrap. Please return to the emergency room for any worsening of symptoms. Prescriptions: No Action lisinopril 20 mg tablet 1 tab PO DAILY cholecalciferol (vitamin D3) 50 mcg (2,000 unit) Tablet 50 mcg PO DAILY calcium carbonate [Oyster Shell Calcium] 500 mg calcium (1,250 mg) Tablet 500 mg PO DAILY hydrocortisone 2.5 % ointment 1 appl topical DAILY tamsulosin 0.4 mg Capsule 0.4 mg PO DAILY Qty: 30 0RF ferrous sulfate 324 mg (65 mg iron) Tablet,Delayed Release (Dr/Ec) 324 mg PO TIDWM 10 Days Qty: 30 0RF clopidogrel [Plavix] 75 mg tablet 75 mg PO DAILY Qty: 30 0RF cefuroxime axetil 500 mg tablet 500 mg PO BID Qty: 14 0RF prednisone 5 mg tablet 5 mg PO DAILY 4 Days Qty: 4 0RF prednisone 5 mg tablet 5 mg PO DAILY 4 Days Qty: 4 0RF atorvastatin 20 mg tablet 20 mg PO DAILY levothyroxine 88 mcg tablet 88 mcg PO DAILY@0600 omega-3 fatty acids 1,000 mg capsule 1,000 mg PO DAILY atenolol 50 mg tablet 50 mg PO DAILY aspirin [Adult Low Dose Aspirin] 81 mg tablet,delayed release (DR/EC) 81 mg PO DAILY Referrals: Sangeetha Sage MD [Primary Care Provider] -
[2022-09-21] MEDS: Acetaminophen 325 MG TABLET 975 MG PO (10:05)
[2022-09-21 10:08] VITALS: BP 159/74; RESP 18; O2SAT 97
--- NOTE | 2022-09-21 11:18 | PC.NURSE ---
Kirby wrap applied to right knee, discharge instructions reviewed with patient who verbalized understanding
== END 2022-09-21 11:23 | disposition other institution (70) ==
PROVIDERS: Emergency Provider Student in an Organized Health Care Education/Training Program; PCP Internal Medicine
DX: M71.21 Synovial cyst of popliteal space [Baker], right knee (principal); M25.461 Effusion, right knee; Z87.891 Personal history of nicotine dependence; Z79.899 Other long term (current) drug therapy
CPT/HCPCS: 51702; 73562; 76882; 99284

== ENCOUNTER 2022-12-21 09:22 | Outpatient (AMB) | payer MEDICARE, MEDICAID, SELFPAY ==
--- NOTE | 2022-12-21 09:26 | A.OFFVIS_ITS ---
Intake Vital Signs 12/21/22 09:38 Height 5 ft 3 in Weight 108 lb BMI 19.1 Intake Visit Reasons: OV, R knee OA/Mercado's Cyst Intake Note: Briseida a 77 year old female presents today for a follow up of right knee. Patient reports pain with flexion and difficulty walking. She was seen at [facility] where xrays were taken and was told having a mercado cyst at the posterior and lateral aspect of knee. States not able to take ibuprofen due to her other medications. Allergies propoxyphene [From Darvon] Allergy (Mild, Verified 12/21/22 09:30) UNKNOWN alteplase Adverse Reaction (Intermediate, Verified 12/21/22 09:30) Itching metformin [Metformin] Adverse Reaction (Mild, Verified 12/21/22 09:30) DIARRHEA, RASH Medication List - Last Reconciled 12/21/22 by Alba Garcia PA-C aspirin (Adult Low Dose Aspirin) 81 mg PO DAILY atenolol 50 mg PO DAILY atorvastatin 20 mg PO DAILY calcium carbonate (Oyster Shell Calcium) 500 mg PO DAILY cefuroxime axetil 500 mg PO BID cholecalciferol (vitamin D3) 50 mcg PO DAILY clopidogrel (Plavix) 75 mg PO DAILY docusate sodium 100 mg PO DAILY ferrous sulfate 324 mg PO TIDWM 10 days hydrocortisone 2.5% 1 appl topical DAILY levothyroxine 88 mcg PO DAILY@0600 lisinopril 1 tab PO DAILY omega-3 fatty acids 1,000 mg PO DAILY prednisone 5 mg PO DAILY 4 days prednisone 5 mg PO DAILY 4 days tamsulosin 0.4 mg PO DAILY HPI OV, R knee OA/Mercado's Cyst HPI Details 77-[facility]. She continues to have pain with bending her knee which is aggravated with ambulation. She was seen at ED where x-rays were performed. She was taking ibuprofen 200 mg for her pain but she had to discontinue due to her other medications. [facility] Medical History Adnexal mass Adult failure to thrive Anemia Cerebrovascular accident COVID-19 virus infection GERD (gastroesophageal reflux disease) Hernia High blood pressure Hypertension Hypothyroidism Intellectual disability Ischemic stroke Major depressive disorder Occult GI bleeding Osteoporosis Thrombocytopenia Type 2 diabetes mellitus Surgical History History of rectal surgery Social History Household Members: None Housing: House Housing Other:: hotel Do you presently have visiting nurse or other home services: Yes Alcohol intake: never Patient Tobacco Use Status: Former Tobacco user Quit Date: 10+ years ago Tobacco use type: Cigarette Second Hand Smoke Exposure: No Advance Directives Date on File: 08/07/22 service: No Current occupational status: retired and disabled Review of Systems Const All systems reviewed & are unremarkable except as noted in HPI and below Physical Exam Vital Signs: BMI result Body Mass Index 19.1 Extrem Other: Right knee is normal to inspection. . No erythema or edema. She is able to fully extend the knee. FLexion to 90. No tenderness to palpation. Neurovascularly intact. Assessment & Plan Assessment & Plan (1) Post-traumatic osteoarthritis of right knee: Code(s): M17.31 - Unilateral post-traumatic osteoarthritis, right knee Plan We discussed steroid injection in the office today. She is on new heart medications and seeing a refrigeration engineering teacher in the [facility], so she is uncertain if she wants an injection today due to potential side effects. So, she will consult with her refrigeration engineering teacher and get back to me about the injection. If she does this sooner than later, I can see her back on Monday for a cortisone injection. She is content with this plan. Patient Instructions: Scribed for Alba Garcia PA-C, by Ricardo Headley remote medical coder, on 12/21/2022 at 9:45 AM EST. I, Alba Garcia PA-C, have personally reviewed and agree with the information entered by the scribe. Coding Level of Care Code Est Pt Level 3 (22877) Diagnoses Post-traumatic osteoarthritis of right knee M17.31
[2022-12-21 09:38] VITALS: BMI 19.1
== END 2022-12-21 10:36 | disposition home or self-care (01) ==
PROVIDERS: PCP Internal Medicine; Visit Provider Physician Assistant
DX: M17.31 Unilateral post-traumatic osteoarthritis, right knee (principal)
CPT/HCPCS: 99213

== ENCOUNTER → 2022-12-21 09:22 | Outpatient (BNVA) | payer MEDICARE, MEDICAID, SELFPAY | PROVIDERS: PCP Internal Medicine; Visit Provider Physician Assistant | DX: M17.31 Unilateral post-traumatic osteoarthritis, right knee (principal) | CPT/HCPCS: 99212 ==

== ENCOUNTER 2023-09-15 11:38 | Inpatient (IN) | payer MEDICARE, MEDICAID, SELFPAY ==
[2023-09-15] VITALS (7 sets, daily range): BP systolic 104–158; BP diastolic 61–87; PULSE 59–91; RESP 16–18; TEMP 36.2–36.5; O2SAT 93–96; BMI 21.1; BMI 22.4
--- NOTE | ~2023-09-15 | XR_ITS ---
EXAMINATION: XR PELVIS CLINICAL INFORMATION: Status post left hip hemiarthroplasty. COMPARISON: Left hip 09/15/2023 at 12:27 PM. TECHNIQUE: AP view of the pelvis. FINDINGS: There is a total left hip prosthesis with immediate postoperative changes. The prosthetic components are in satisfactory alignment. Posttraumatic left superior and inferior pubic rami is noted and unchanged. XR/XR pelvis 1-2V IMPRESSION: 1. Total left hip prosthesis with immediate postoperative changes noted. 2. Posttraumatic changes left superior and inferior pubic rami are noted.
--- NOTE | ~2023-09-15 | XR_ITS ---
EXAMINATION: XR knee LT 3V, XR hip LT w PEL1V CLINICAL INFORMATION: Reason for Exam fall, pain and ecchymosis COMPARISON: None. TECHNIQUE: 3 view series left knee; AP pelvis and 2 view series left hip FINDINGS: Left knee: Diffuse osteopenia is present. A small suprapatellar bursal effusion is noted. Moderate patellofemoral joint space narrowing and osteophytosis is present. Mild medial compartment joint space narrowing and osteophytosis noted. Mild lateral compartment osteophytosis. Diffuse calcific atherosclerosis is identified. Left hip and pelvis: A transverse, displaced subcapital fracture of the left femur is noted with varus angulation. No femoral acetabular subluxation identified. The pelvis demonstrates no acute fractures. Diffuse osteopenia. Scattered pelvic phleboliths. Visualized right hip appears intact. Chronic posttraumatic deformity of the superior and inferior left pubic rami are noted. Approximately 25% lateral displacement of the left femoral fracture noted. XR/XR knee LT 3V IMPRESSION: LEFT HIP: Transverse subcapital fracture of the left femur with varus angulation and lateral displacement. LEFT KNEE: 1. Small suprapatellar bursal effusion. 2. Moderate tricompartmental osteoarthritis. 3. Diffuse osteopenia. 4. Diffuse calcific atherosclerosis.
--- NOTE | ~2023-09-15 | XR_ITS ---
EXAMINATION: XR CHEST CLINICAL INFORMATION: Chest pain COMPARISON: Chest x-ray on 08/07/2022 TECHNIQUE: Frontal view of the chest was obtained. FINDINGS: signs of congestive heart failure pulmonary vascularity. LUNGS: Persistent medium-sized retrocardiac hiatus hernia is present, producing soft tissue shadow. Apart from multiple nodular radiopacities corresponding to Rhinestones on the patient's shirt, no focal airspace disease could be seen. No pneumothorax is seen. BONES: Bony skeleton is intact. XR/XR chest 1V IMPRESSION: 1. Unchanged mild cardiomegaly without radiographic signs of congestive heart failure. 2. Persistent medium-sized retrocardiac hiatus hernia. 3. No radiographic signs of acute cardiopulmonary process.
--- NOTE | ~2023-09-15 | XR_ITS ---
EXAMINATION: XR knee LT 3V, XR hip LT w PEL1V CLINICAL INFORMATION: Reason for Exam fall, pain and ecchymosis COMPARISON: None. TECHNIQUE: 3 view series left knee; AP pelvis and 2 view series left hip FINDINGS: Left knee: Diffuse osteopenia is present. A small suprapatellar bursal effusion is noted. Moderate patellofemoral joint space narrowing and osteophytosis is present. Mild medial compartment joint space narrowing and osteophytosis noted. Mild lateral compartment osteophytosis. Diffuse calcific atherosclerosis is identified. Left hip and pelvis: A transverse, displaced subcapital fracture of the left femur is noted with varus angulation. No femoral acetabular subluxation identified. The pelvis demonstrates no acute fractures. Diffuse osteopenia. Scattered pelvic phleboliths. Visualized right hip appears intact. Chronic posttraumatic deformity of the superior and inferior left pubic rami are noted. Approximately 25% lateral displacement of the left femoral fracture noted. XR/XR hip LT w PEL1V IMPRESSION: LEFT HIP: Transverse subcapital fracture of the left femur with varus angulation and lateral displacement. LEFT KNEE: 1. Small suprapatellar bursal effusion. 2. Moderate tricompartmental osteoarthritis. 3. Diffuse osteopenia. 4. Diffuse calcific atherosclerosis.
--- NOTE | 2023-09-15 11:56 | ED.GENADULT ---
HPI - General Adult General Chief complaint: Fall Stated complaint: L HIP AND KNEE PAIN MECHANICAL FALL Time Seen by Provider: 09/15/23 11:43 Source: patient Mode of arrival: EMS Limitations: no limitations History of Present Illness ED Provider: jordon HPI narrative: Patient is a 78-year-old female with history of anemia, thrombocytopenia, CVA, HTN, MDD, T2DM, intellectual disability, hypothyroidism, osteoporosis, GERD presenting to the ED with complaint of left hip pain after a fall prior to arrival. States she typically uses a ramp but today went around the back and while going up one step, lost her balance and fell onto left hip. She denies head strike or loss of consciousness. Reports some pain and bruising to left knee but hip pain is worse. Was unable to stand/ambulate after the fall. Denies headache, neck or back pain. Denies changes in vision. Did not have any dizzinesss, lightheadedness, chest pain or dyspnea prior to fall. MD complaint: hip pain Onset (ago): minute(s) Location: left Severity: severe Quality: aching Pain Consistency: constant Relieving factors: rest Exacerbating factors: movement Associated symptoms: denies other symptoms Related Data Home Medications ?Medication ?Instructions ?Recorded ?Confirmed aspirin 81 mg tablet,delayed 81 mg PO DAILY 10/13/21 12/21/22 release (Adult Low Dose Aspirin) atenolol 50 mg tablet 50 mg PO DAILY 10/13/21 12/21/22 atorvastatin 20 mg tablet 20 mg PO DAILY 10/13/21 12/21/22 levothyroxine 88 mcg tablet 88 mcg PO DAILY@0600 10/13/21 12/21/22 omega-3 fatty acids 1,000 mg 1,000 mg PO DAILY 10/13/21 12/21/22 capsule cholecalciferol (vitamin D3) 50 50 mcg PO DAILY 03/23/22 12/21/22 mcg (2,000 unit) tablet lisinopril 20 mg tablet 1 tab PO DAILY 03/23/22 12/21/22 calcium carbonate (Oyster Shell 500 mg PO DAILY 08/07/22 12/21/22 Calcium) hydrocortisone 2.5 % topical 1 appl topical DAILY 08/07/22 08/07/22 ointment docusate sodium 100 mg capsule 100 mg PO DAILY 12/21/22 12/21/22 Previous Rx's ?Medication ?Instructions ?Recorded cefuroxime axetil 500 mg tablet 500 mg PO BID #14 tabs 08/09/22 clopidogrel 75 mg tablet (Plavix) 75 mg PO DAILY #30 tabs 08/09/22 ferrous sulfate 324 mg (65 mg 324 mg PO TIDWM 10 days #30 tabs 08/09/22 iron) tablet,delayed release tamsulosin 0.4 mg capsule 0.4 mg PO DAILY #30 caps 08/09/22 prednisone 5 mg tablet 5 mg PO DAILY 4 days #4 tabs 08/21/22 prednisone 5 mg tablet 5 mg PO DAILY 4 days #4 tabs 09/10/22 Allergies Allergy/AdvReac Type Severity Reaction Status Date / Time propoxyphene [From Darvon] Allergy Mild UNKNOWN Verified 09/15/23 12:00 alteplase AdvReac Intermediate Itching Verified 09/15/23 12:00 metformin [Metformin] AdvReac Mild DIARRHEA, Verified 09/15/23 12:00 RASH Review of Systems Review of Systems: As per HPI Yes all other systems are reviewed and are negative Constitutional: Constitutional: Reports as per HPI PMFSH Past Medical History Medical History Adnexal mass Adult failure to thrive Anemia Cerebrovascular accident COVID-19 virus infection GERD (gastroesophageal reflux disease) Hernia High blood pressure Hypertension Hypothyroidism Intellectual disability Ischemic stroke Major depressive disorder Occult GI bleeding Osteoporosis Thrombocytopenia Type 2 diabetes mellitus Surgical History History of rectal surgery Social History Social History Household Members: None Housing: House Housing Other:: hotel Do you presently have visiting nurse or other home services: Yes Alcohol intake: never Patient Tobacco Use Status: Former Tobacco user Tobacco use type: Cigarette Second Hand Smoke Exposure: No Advance Directives: No Advance Directives Information Provided: Yes Advance Directives Date on File: 08/07/22 service: No Current occupational status: retired and disabled Physical Exam ED Vital Signs: Vital Signs - 24 hr 09/15/23 11:55 Temperature 97.7 F Pulse Rate 59 Respiratory Rate 17 Blood Pressure 140/62 H Pulse Oximetry 94 Oxygen Delivery Method Room Air BMI result Body Mass Index 21.1 Vital signs have been reviewed and appear to be correct. Blood pressure elevated. Heart rate normal. Respiratory rate normal. Temperature normal. Oxygen saturation normal. Const General: cooperative, healthy appearing and no acute distress Orientation/consciousness: oriented to person, oriented to place, oriented to time and patient oriented x3 Limitations: no limitations HENMT Head: Yes normocephalic and Yes atraumatic Ears: external ears normal General nose exam: Normal external nose present Face and sinus: Yes face symmetric Mouth: oropharynx normal and moist mucous membranes Throat: Yes uvula midline Eyes Pupils: Equal, round and reactive pupils present Neck Neck: Yes normal visual inspection and Yes supple Resp Effort & Inspection: normal respiratory effort and able to speak in complete sentences Auscultation: clear to auscultation bilaterally Cardio Rate: regular rate Rhythm: regular rhythm Heart sounds: S1 normal heart sound present and S2 normal heart sound present GI Palpation (GI): Soft to palpation and nontender Auscultation: normoactive bowel sounds General: Yes no CVA tenderness Back/Spine/Pelvis Back: no CVA tenderness Skin General skin exam: elasticity normal and turgor normal Neuro General: oriented to person, oriented to place, oriented to time, patient oriented x3, moves all extremities, no focal motor deficits and CN's II-XI intact bilaterally Cranial nerves: Yes Equal, round and reactive pupils present Cognition (Neuro): normal cognition Extrem General: Yes full ROM, Yes no pedal edema and Yes no calf tenderness Left lower extremity: hip/thigh Details: tenderness Location: of the hip Location: laterally and abnormal ROM Details: held in an abnormal fashion Details: in extension; no ecchymosis and knee Details: tenderness Location: of the patella, normal ROM and ecchymosis knee anterior Psych Mental Status: mental status grossly normal Affect: normal affect Thought process: Normal thought process present Medications Administered Discontinued Medications Generic Name Dose Route Start Last Admin Trade Name Freq PRN Reason Stop Dose Admin Fentanyl 25 mcg 09/15/23 12:01 09/15/23 13:14 Fentanyl Citrate/Pf 100 Mcg/2 Ml Vial IVPUSH 09/15/23 12:02 25 mcg ONCE ONE Administration Protocol Medical Decision Making Medical Decision Making MDM Narrative: Patient is a 78-year-old female with history of anemia, thrombocytopenia, CVA, HTN, MDD, T2DM, intellectual disability, hypothyroidism, osteoporosis, GERD presenting to the ED with complaint of left hip pain after a fall prior to arrival. On exam patient is awake, A+Ox3, VS WNL, afebrile, normal neurological exam without focal deficits, physical exam findings as above. Given reported symptoms and physical exam findings, initial differential includes hip contusion vs fracture vs dislocation, knee contusion vs fracture. Labs notable for chronic anemia. EKG shows normal sinus rhythm with incomplete RBBB, no change from prior. X-ray left hip notable for transverse subcapital fracture of left femur with angulation and lateral displacement. No acute fracture of left knee. My interpretation is in agreement with the radiologist's interpretation. Case discussed with renea Vallejo, who recommends admission to medicine. NPO after midnight. Patient updated on results and plan. Admission accepted by hospitalist. Differential Diagnosis Differential Diagnoses: The differential diagnosis associated with the presentation includes As per [facility] Admission/Observation Consideration of admission/observation: Escalation of care including admission/observation considered Consult Healthcare Provider Management of the patient was discussed with: Hospitalist and Vibrator Equipment Tester (renea Vallejo) Lab Data [facility] Lab Attestation statement: I reviewed the patient's lab results. As per [facility] 09/15/23 13:06 09/15/23 13:06 Labs: Lab Results 09/15/23 Range/Units 13:06 WBC 9.8 (4.8-10.8) X10*3/uL RBC 4.51 (4.20-5.50) X10*6/uL Hgb 9.9 L (12.0-16.0) g/dl Hct 33.5 L (37.0-47.0) % MCV 74.3 L (80.0-98.0) fL MCH 22.0 L (27.0-33.0) pg MCHC 29.6 L (31.0-35.0) g/dl RDW 18.8 H (11.0-16.0) % Plt Count 236 (160-400) X10*3/uL MPV 9.7 (9.4-12.3) fL Immature Gran % (Auto) 0.6 H (0.0-0.4) % Neut % (Auto) 87.9 H (45-73) % Lymph % (Auto) 6.3 L (20-40) % [place] % (Auto) 4.2 (2-11) % Eos % (Auto) 0.6 (0-4) % Baso % (Auto) 0.4 (0-2) % Lymph # (Auto) 0.6 L (1.2-4.9) X10*3/uL [place] # (Auto) 0.4 (0.1-1.2) X10*3/uL Eos # (Auto) 0.1 (0.0-0.4) X10*3/uL Baso # (Auto) 0.0 (0.0-0.2) X10*3/uL Abs Immat Gran (auto) 0.06 H (0.00-0.03) X10*3/uL Absolute Neuts (auto) 8.6 H (2.0-8.3) x10*3/uL Absolute Nucleated RBC 0.000 (0.0-0.012) X10*3/uL Nucleated RBC % (auto) 0.0 (0.0-0.2) /100WBC Sodium 140 (135-145) mmol/L Potassium 3.7 (3.3-5.1) mmol/L Chloride 107 (96-108) mmol/L Carbon Dioxide 26 (22-29) mmol/L Anion Gap 11 L (12-20) BUN 15 (9-16) mg/dL Creatinine 0.56 (0.5-1.4) mg/dL Estim Creat Clear Calc 67.3 Estimated GFR > 60 Random Glucose 135 H (60-115) mg/dL Calcium 9.3 D (8.4-10.2) mg/dL Total Bilirubin 0.5 (0.0-1.0) mg/dL AST 16 (5-31) U/L ALT 12 (0-31) U/L Alkaline Phosphatase 75 (39-117) U/L Total Protein 6.3 L (6.5-8.0) g/dL Albumin 4.0 (3.5-5.0) g/dL Independent Interpretation I performed an independent interpretation of an: EKG (normal sinus rhythm with incomplete RBBB, rate 65bpm, normal DE interval, unchanged from prior) and Plain X-Ray Interpretation: Xray left hip notable for transverse subcapital fracture of left femur with angulation and lateral displacement. Radiology Impression Discussion of test interpretation with radiology: I have reviewed the radiologist's reading. Radiologist Impression: XR/XR hip LT w PEL1V IMPRESSION: LEFT HIP: Transverse subcapital fracture of the left femur with varus angulation and lateral displacement. LEFT KNEE: 1. Small suprapatellar bursal effusion. 2. Moderate tricompartmental osteoarthritis. 3. Diffuse osteopenia. 4. Diffuse calcific atherosclerosis. External Record Review External record reviewed: Inpatient record, Office record and Outpatient record Discharge Plan Discharge Prescriptions: No Action lisinopril 20 mg tablet 1 tab PO DAILY cholecalciferol (vitamin D3) 50 mcg (2,000 unit) Tablet 50 mcg PO DAILY calcium carbonate [Oyster Shell Calcium] 500 mg calcium (1,250 mg) Tablet 500 mg PO DAILY hydrocortisone 2.5 % ointment 1 appl topical DAILY tamsulosin 0.4 mg Capsule 0.4 mg PO DAILY Qty: 30 0RF ferrous sulfate 324 mg (65 mg iron) Tablet,Delayed Release (Dr/Ec) 324 mg PO TIDWM 10 Days Qty: 30 0RF clopidogrel [Plavix] 75 mg tablet 75 mg PO DAILY Qty: 30 0RF cefuroxime axetil 500 mg tablet 500 mg PO BID Qty: 14 0RF prednisone 5 mg tablet 5 mg PO DAILY 4 Days Qty: 4 0RF prednisone 5 mg tablet 5 mg PO DAILY 4 Days Qty: 4 0RF atorvastatin 20 mg tablet 20 mg PO DAILY levothyroxine 88 mcg tablet 88 mcg PO DAILY@0600 omega-3 fatty acids 1,000 mg capsule 1,000 mg PO DAILY atenolol 50 mg tablet 50 mg PO DAILY aspirin [Adult Low Dose Aspirin] 81 mg tablet,delayed release (DR/EC) 81 mg PO DAILY docusate sodium 100 mg capsule 100 mg PO DAILY Print Language: [place] African
--- NOTE | 2023-09-15 12:30 | ECG_ITS ---
Test Reason : hip fracture Blood Pressure : / mmHG Vent. Rate : 065 BPM Atrial Rate : 065 BPM P-R Int : 168 ms QRS Dur : 118 ms QT Int : 434 ms P-R-T Axes : 065 -06 019 degrees QTc Int : 451 ms Normal sinus rhythm Incomplete right bundle branch block T wave abnormality, consider anterior ischemia Abnormal ECG When compared with ECG of 08-AUG-2022 15:24, No significant change was found Referred By: An Patton Electronically Signed By:Darío Mccormack
[2023-09-15 13:14] LABS: MANUAL DIFF FLAG NO
[2023-09-15] MEDS: fentaNYL citrate/PF 100 MCG/2 ML VIAL 25 MCG IVPUSH (13:14)
[2023-09-15 13:16] LABS: Basophils Percent Auto 0.4 % (0-2); Eosinophils Absolute Auto 0.1 X10*3/uL (0.0-0.4); Eosinophils Percent Auto 0.6 % (0-4); Hematocrit 33.5 % (37.0-47.0); Hemoglobin 9.9 g/dl (12.0-16.0); Imm Gran Abs Auto 0.06 X10*3/uL (0.00-0.03); Imm Gran Pct Auto 0.6 % (0.0-0.4); Lymphocytes Absolute Auto 0.6 X10*3/uL (1.2-4.9); Lymphocytes Percent Auto 6.3 % (20-40); Mean Corpuscular HGB Conc 29.6 g/dl (31.0-35.0); Mean Corpuscular Volume 74.3 fL (80.0-98.0); Mean Platelet Volume 9.7 fL (9.4-12.3); Monocytes Absolute Auto 0.4 X10*3/uL (0.1-1.2); Monocytes Percent Auto 4.2 % (2-11); Neutrophils Absolute Auto 8.6 x10*3/uL (2.0-8.3); Neutrophils Percent Auto 87.9 % (45-73); Platelet Count 236 X10*3/uL (160-400); Red Blood Count 4.51 X10*6/uL (4.20-5.50); Red Cell Distribution Width 18.8 % (11.0-16.0); White Blood Count 9.8 X10*3/uL (4.8-10.8)
[2023-09-15 13:29] LABS: Alanine Aminotransferase 12 U/L (0-31); Alkaline Phosphatase 75 U/L (39-117); Anion Gap 11 (12-20); Aspartate Amino Transferase 16 U/L (5-31); Bilirubin Total 0.5 mg/dL (0.0-1.0); Blood Urea Nitrogen 15 mg/dL (9-16); Calcium 9.3 mg/dL (8.4-10.2); Carbon Dioxide 26 mmol/L (22-29); Chloride 107 mmol/L (96-108); Creatinine Clr Calc Pharmacy 67.3; Estimated Glomerular Filt Rate > 60; Glucose Random 135 mg/dL (60-115); Potassium 3.7 mmol/L (3.3-5.1); Sodium 140 mmol/L (135-145); Total Protein 6.3 g/dL (6.5-8.0)
--- NOTE | 2023-09-15 14:01 | P.HPHOSP_ITS ---
History of Present Illness Date of Service: 09/15/23 Attending physician on admission: Ankur Garcia Chief Complaint: Fall at home, left hip pain Pt is a 78-year-old female with a PMH significant for?CVA in 2022 treated with tPA on aspirin and Plavix, HTN, hypothyroidism, urinary retention, anemia, and hx of CHF unspecified 25+ years ago who presents to the ED for evaluation of left hip after having mechanical at home. Patient lives at home where she has a daily healthcare worker who helps her out with medication and ADLs. Patient went over to her healthcare worker's house to visit the dogs when patient tripped over the entrance way into the house and fell on her left hip. Patient initially had left hip pain and found out that she could not pull herself up on her own or bear weight on left leg with assistance from healthcare worker. Sat on a chair until EMS arrived. Denies head strike or loss of consciousness. No numbness or tingling in extremities. No lightheadedness/dizziness, or headache. Denies nausea, vomiting, abdominal pain. Fever or chills. Denies chest pain/pressure, palpitations. No shortness a breath or difficulty breathing. In the ED pt was mildly hypertensive at 140/62, vitals otherwise WNL. Labs were overall grossly unremarkable and around baseline for patient. No leukocytosis. Stable microcytic anemia of 9.9/33.5, around baseline. No significant abnormalities . Renal function baseline. X-ray of left hip showed transverse subcapital fracture of the left femur with varus angulation and lateral displacement. Left knee with small suprapatellar bursa effusion with moderate tricompartmental osteoarthritis, diffuse osteopenic, and diffuse calcific atherosclerosis. CXR showed unchanged mild cardiomegaly without radiographic signs of CHF, and persistent meeting size retrocardiac hiatal hernia. EKG demonstrated normal sinus rhythm with incomplete RBBB and T-wave inversions in V1, V2, and V3, but no evidence of significant ST elevations or depressions. Pt was treated with fentanyl 25 mcg IV. Pt will be admitted to the hospital for treatment and further evaluation of left hip fracture requiring surgical intervention. Review of Systems 2 Review of Systems: Mechanical fall At home left hip pain radiating down leg Denies numbness or tingling in extremities No other acute medical complaints at this time [facility] Medical History Adnexal mass Adult failure to thrive Anemia Cerebrovascular accident COVID-19 virus infection GERD (gastroesophageal reflux disease) Hernia High blood pressure Hypertension Hypothyroidism Intellectual disability Ischemic stroke Major depressive disorder Occult GI bleeding Osteoporosis Thrombocytopenia Type 2 diabetes mellitus Surgical History History of rectal surgery Social History Household Members: None Housing: House Housing Other:: hotel Do you presently have visiting nurse or other home services: Yes Alcohol intake: never Patient Tobacco Use Status: Former Tobacco user Tobacco use type: Cigarette Smoked in Last 30 Days: No e-Cigarette/Vaping Use: Former Use Patient Interested in Nicotine Replacement: No Patient Given Instructions on How to Stop Smoking: Yes Date Education Initiated: 09/15/23 Second Hand Smoke Exposure: No Use of substances other than those prescribed or required for medical reasons: No Last Used Substance Other:: DONT USED PER PT Currently Displaying Signs/Symptoms of Drug Intoxication Withdrawal: No Any prior treatment program specific to substance use: No Have you been hit, kicked, punched, or otherwise hurt by someone within the past year? If so, by whom?: No Do you feel safe in your current relationship?: Yes Is there a partner from a previous relationship who is making you feel unsafe now?: No Are you made to feel afraid or neglected: No Spiritual Healthcare Practices: NONE Jewish Healthcare Practices: NONE Cultural Healthcare Practices: NONE Advance Directives: No Advance Directives Information Provided: Yes Advance Directives on File: No Advance Directives Date on File: 08/07/22 Do you have a plan to hurt others: No Plan Recently lost weight without trying: Yes How much weight loss: 14-23 pounds Eating poorly because of decreased appetite: Yes Nutrition screen score: 5 Nutrition Risks: No Nutritional Risk, Difficulty chewing and Poor intake 0-25% >4 days Patient : No : No Poor oral hygiene: Yes service: No Current occupational status: retired and disabled Meds Allergies Allergy/AdvReac Type Severity Reaction Status Date / Time propoxyphene [From Darvon] Allergy Mild UNKNOWN Verified 09/15/23 12:00 alteplase AdvReac Intermediate Itching Verified 09/15/23 12:00 metformin [Metformin] AdvReac Mild DIARRHEA, Verified 09/15/23 12:00 RASH Home Medications ?Medication ?Instructions ?Recorded ?Confirmed ?Last Taken ?Type aspirin 81 mg tablet,delayed 81 mg PO BEDTIME 10/13/21 09/15/23 09/15/23 06:00 History release (Adult Low Dose Aspirin) atenolol 50 mg tablet 50 mg PO BEDTIME 10/13/21 09/15/23 09/14/23 History atorvastatin 20 mg tablet 20 mg PO DAILY 10/13/21 09/15/23 09/15/23 06:00 History levothyroxine 88 mcg tablet 88 mcg PO DAILY@0600 10/13/21 09/15/23 09/15/23 06:00 History omega-3 fatty acids 1,000 mg 1,000 mg PO DAILY 10/13/21 09/15/23 09/15/23 06:00 History capsule lisinopril 20 mg tablet 20 mg PO BEDTIME 03/23/22 09/15/23 09/14/23 History calcium carbonate (Oyster Shell 500 mg PO BEDTIME 08/07/22 09/15/23 09/14/23 History Calcium) docusate sodium 100 mg capsule 100 mg PO DAILY 12/21/22 09/15/23 09/15/23 06:00 History clotrimazole 1 % topical cream 1 appl topical BID PRN Rash Under 09/15/23 09/15/23 Unknown History Breast cyanocobalamin (vitamin B-12) 1,000 mcg subcut QMONTH 09/15/23 09/15/23 Unknown History 1,000 mcg/mL injection solution hydrocortisone 2.5 % topical 1 appl topical BID PRN Rash 09/15/23 09/15/23 Unknown History ointment Face/Neck polyethylene glycol 3350 17 17 g PO DAILY 09/15/23 09/15/23 09/15/23 06:00 History gram/dose oral powder sennosides 8.6 mg tablet (senna) 17.2 mg PO DAILY PRN Constipation 09/15/23 09/15/23 Unknown History Physical Exam 2 Vital Signs and Narrative: Vital Signs: Last Vital Signs Temp 97.7 F 09/15/23 11:55 Pulse 59 09/15/23 11:55 Resp 17 09/15/23 11:55 BP 140/62 H 09/15/23 11:55 Pulse Ox 94 09/15/23 11:55 O2 Del Method Room Air 09/15/23 11:55 BMI result Body Mass Index 21.1 General: AOx3, no acute distress Resp: CTA bilaterally CVS: S1, S2, RRR GI: +BS, NT, no distention Skin: Warm, dry Neuro: Cranial nerves II-XII grossly intact bilaterally. Motor grossly intact bilaterally Extremities: No edema. Left hp tender, left leg shortened and externally rotated. Psych: Appropriate affect Results Labs 09/15/23 13:06 09/15/23 13:06 Labs: Laboratory Results - last 24 hr 09/15/23 13:06 MCV 74.3 L MCH 22.0 L MCHC 29.6 L RDW 18.8 H Plt Count 236 MPV 9.7 Immature Gran % (Auto) 0.6 H Neut % (Auto) 87.9 H Lymph % (Auto) 6.3 L [place] % (Auto) 4.2 Eos % (Auto) 0.6 Baso % (Auto) 0.4 Lymph # (Auto) 0.6 L [place] # (Auto) 0.4 Eos # (Auto) 0.1 Baso # (Auto) 0.0 Abs Immat Gran (auto) 0.06 H Absolute Neuts (auto) 8.6 H Absolute Nucleated RBC 0.000 Nucleated RBC % (auto) 0.0 Anion Gap 11 L Estim Creat Clear Calc 67.3 Estimated GFR > 60 Random Glucose 135 H Calcium 9.3 D Total Bilirubin 0.5 AST 16 ALT 12 Alkaline Phosphatase 75 Total Protein 6.3 L Albumin 4.0 Assessment and Plan (1) Left displaced femoral neck fracture: Status: Acute Plan Pt is a 78-year-old female with a PMH significant for?CVA in 2022 treated with tPA on aspirin and Plavix, HTN, hypothyroidism, urinary retention, anemia, and hx of CHF unspecified 25+ years ago who presents to the ED for evaluation of left hip after having mechanical at home. Pt will be admitted to the hospital for treatment and further evaluation of left hip fracture requiring surgical intervention. Left hip fracture Patient with mechanical fall at home landing on left hip Left hip x-ray found transverse subcapital fracture of the left femur with varus angulation and lateral displacement Hold aspirin and Plavix Analgesics for pain management Patient will be made NPO on Monday at midnight in anticipation for surgery on Monday a.m. Orthopedic consult Revised cardiac risk index: 2 points and a class III risk Patient is at moderate risk for surgical procedure given age and comorbidities No indication for additional cardiac workup Hx of CVA Hold aspirin, clopidogrel Continue statin CHF unspecified Not in acute exacerbation Patient reports last exacerbation 25+ years ago Not on diuretics Continue atenolol HTN Continue atenolol, lisinopril Urinary retention Continue tamsulosin Diet-controlled type 2 diabetes Diabetic diet Sliding scale insulin DNR/DNI, verified with [facility] Attending:?Dr. Garcia DVT Prophylaxis: Pneumatic compression Pt will require a hospitalization of at least two nights for treatment of?acute left hip fracture that will require surgical intervention. Quality Stroke Does the patient have a stroke diagnosis?: No VTE Prior VTE?: No VTE Risk Level:: Medical - moderate - high VTE Device Contraindication: N/A - Device Ordered VTE Drug Contraindication: Treatment Not Indicated
--- NOTE | 2023-09-15 14:35 | P.CONOP_ITS ---
History of Present Illness HPI Consult date: 09/15/23 Chief complaint: L HIP AND KNEE PAIN MECHANICAL FALL Narrative: Patient is a 78-year-old female with history of anemia, thrombocytopenia, CVA, HTN, MDD, T2DM, intellectual disability, hypothyroidism, osteoporosis, GERD presenting to the ED with complaint of left hip pain after a fall prior to arrival. States she typically uses a ramp but today went around the back and while going up one step, lost her balance and fell onto left hip. She felt immediate left hip and left knee pain. She presented to the ED where x-rays were obtained and she was found to have a left femoral neck fracture. The patient will be admitted to the medical service. Orthopedics was consulted for further evaluation and treatment. Review of Systems 2 Review of Systems: Yes all other systems are reviewed and are negative [facility] Past Medical History Medical History Adnexal mass Adult failure to thrive Anemia Cerebrovascular accident COVID-19 virus infection GERD (gastroesophageal reflux disease) Hernia High blood pressure Hypertension Hypothyroidism Intellectual disability Ischemic stroke Major depressive disorder Occult GI bleeding Osteoporosis Thrombocytopenia Type 2 diabetes mellitus Surgical History Surgical History History of rectal surgery Social History Social History Household Members: None Housing: House Housing Other:: hotel Do you presently have visiting nurse or other home services: Yes Alcohol intake: never Patient Tobacco Use Status: Former Tobacco user Tobacco use type: Cigarette Second Hand Smoke Exposure: No Advance Directives: No Advance Directives Information Provided: Yes Advance Directives Date on File: 08/07/22 service: No Current occupational status: retired and disabled Meds Allergies Allergy/AdvReac Type Severity Reaction Status Date / Time propoxyphene [From Darvon] Allergy Mild UNKNOWN Verified 09/15/23 12:00 alteplase AdvReac Intermediate Itching Verified 09/15/23 12:00 metformin [Metformin] AdvReac Mild DIARRHEA, Verified 09/15/23 12:00 RASH Home Medications ?Medication ?Instructions ?Recorded ?Confirmed ?Last Taken ?Type aspirin 81 mg tablet,delayed 81 mg PO DAILY 10/13/21 12/21/22 03/23/22 History release (Adult Low Dose Aspirin) atenolol 50 mg tablet 50 mg PO DAILY 10/13/21 12/21/22 03/23/22 History atorvastatin 20 mg tablet 20 mg PO DAILY 10/13/21 12/21/22 03/23/22 History levothyroxine 88 mcg tablet 88 mcg PO DAILY@0600 10/13/21 12/21/22 03/23/22 History omega-3 fatty acids 1,000 mg 1,000 mg PO DAILY 10/13/21 12/21/22 03/23/22 History capsule cholecalciferol (vitamin D3) 50 50 mcg PO DAILY 03/23/22 12/21/22 03/23/22 History mcg (2,000 unit) tablet lisinopril 20 mg tablet 1 tab PO DAILY 03/23/22 12/21/22 03/23/22 History calcium carbonate (Oyster Shell 500 mg PO DAILY 08/07/22 12/21/22 Unknown History Calcium) hydrocortisone 2.5 % topical 1 appl topical DAILY 08/07/22 08/07/22 Unknown History ointment docusate sodium 100 mg capsule 100 mg PO DAILY 12/21/22 12/21/22 Unknown History Physical Exam 2 Vital Signs: Vital Signs: Last Vital Signs Temp 97.7 F 09/15/23 11:55 Pulse 59 09/15/23 11:55 Resp 17 09/15/23 11:55 BP 140/62 H 09/15/23 11:55 Pulse Ox 94 09/15/23 11:55 O2 Del Method Room Air 09/15/23 11:55 BMI result Body Mass Index 21.1 Const: General: cooperative, healthy appearing and no acute distress Resp: Effort & Inspection: normal respiratory effort and able to speak in complete sentences Cardio: Rate: regular rate Peripheral pulses: Peripheral pulses 2+ throughout GI: Palpation (GI): Soft to palpation Skin: Lesions: no lesions Rashes: no rashes Extrem: Other: LLE shortened and externally rotated. Skin intact. Pain with log roll. Able to dorsi/plantar flex. Sensation intact. Pedal pulse intact. Results Labs 09/15/23 13:06 09/15/23 13:06 Labs: Abnormal lab results 09/15/23 Range/Units 13:06 Hgb 9.9 L (12.0-16.0) g/dl Hct 33.5 L (37.0-47.0) % MCV 74.3 L (80.0-98.0) fL MCH 22.0 L (27.0-33.0) pg MCHC 29.6 L (31.0-35.0) g/dl RDW 18.8 H (11.0-16.0) % Immature Gran % (Auto) 0.6 H (0.0-0.4) % Neut % (Auto) 87.9 H (45-73) % Lymph % (Auto) 6.3 L (20-40) % Lymph # (Auto) 0.6 L (1.2-4.9) X10*3/uL Abs Immat Gran (auto) 0.06 H (0.00-0.03) X10*3/uL Absolute Neuts (auto) 8.6 H (2.0-8.3) x10*3/uL Anion Gap 11 L (12-20) Random Glucose 135 H (60-115) mg/dL Total Protein 6.3 L (6.5-8.0) g/dL H & H 09/15/23 Range/Units 13:06 Hgb 9.9 L (12.0-16.0) g/dl Hct 33.5 L (37.0-47.0) % All other labs normal. Assessment and Plan (1) Left displaced femoral neck fracture: Status: Acute I discussed the case with Dr. Manning and explained the extent of the injury to the patient and options available which include surgical intervention. I explained the procedure in detail along with the length of recovery and rehab course. I explained the risk, benefits and alternatives. Risk including, but not limited to infection, blood clots, bleeding, non union or malunion and nerve/tissue damage to surrounding areas. I answered all their questions and with their understanding they have consented to move forward with Operative Fixation of the left hip. The patient will be T&S, med clearance to be obtained by medicine. Hold ASA and Plavix. (2) Post-traumatic osteoarthritis of right knee: Status: Acute Procedures Date of Service Date of Service: 09/15/23
--- NOTE | 2023-09-15 15:47 | PHA.MEDREC ---
Addendum entered by Bear Haynes RP 09/15/23 16:23: DOUBLE CHECKED MED REC BY [facility] Original Note: Pharmacy Consult ? Medication Reconciliation Pharmacy has completed the medication reconciliation. Confirmed medications with list provided by PCP helpers at bedside of patient. Patient also verified she is no longer taking Alendronate 70mg tabs once weekly.
[2023-09-15] MEDS: 0.9 % Sodium Chloride Flush 3 ML SYRINGE IVFLUSH (17:55)
[2023-09-15 18:05] LABS: Glucose, Whole Blood 175 mg/dL (60-115)
[2023-09-15] MEDS: lisinopriL 20 MG TABLET PO (21:03)
[2023-09-15] MEDS: Calcium Oyster Shell Elemental 500 MG TABLET PO (21:04)
[2023-09-15] MEDS: atenoloL 50 MG TABLET PO (21:04)
[2023-09-15] MEDS: Morphine Sulfate 4 MG/ML CARTRIDGE IVPUSH (21:10)
[2023-09-15 21:17] LABS: Glucose, Whole Blood 146 mg/dL (60-115)
[2023-09-16] VITALS (8 sets, daily range): BP systolic 103–146; BP diastolic 56–88; PULSE 70–81; RESP 17–18; TEMP 36.3–36.8; O2SAT 92–95
[2023-09-16] MEDS: HYDROmorphone HCl 1 MG/ML SYRINGE IVPUSH (00:23)
--- NOTE | 2023-09-16 00:30 | PC.NURSE ---
pt crying 10/ pain, states morphine given @[address] Malloy notified, ordered Dilaudid 1mg IV x1 dose, given @0025, will continue to monitor
[2023-09-16] MEDS: 0.9 % Sodium Chloride Flush 3 ML SYRINGE IVFLUSH ×4 (01:10→20:21)
[2023-09-16] MEDS: Levothyroxine Sodium 88 MCG TABLET PO (05:38)
[2023-09-16 07:49] LABS: Glucose, Whole Blood 134 mg/dL (60-115)
[2023-09-16] MEDS: Morphine Sulfate 4 MG/ML CARTRIDGE IVPUSH ×2 (07:58→15:51)
[2023-09-16] MEDS: ondansetron HCL 4 MG/2 ML VIAL IVPUSH (08:23)
[2023-09-16] MEDS: Docusate Sodium 100 MG CAPSULE PO (09:18)
[2023-09-16] MEDS: Tamsulosin HCL 0.4 MG CAPSULE PO (09:18)
[2023-09-16] MEDS: polyethylene glycoL 3350 17 GM POWD.PACK PO (09:18)
[2023-09-16] MEDS: Atorvastatin Calcium 20 MG TABLET PO (09:18)
[2023-09-16] MEDS: oxyCODONE HCl Immed Release 5 MG TABLET PO ×3 (09:18→21:05)
--- NOTE | 2023-09-16 10:31 | HO.PM.IMPN ---
Subjective Subjective Date of Service: 09/16/23 Interval History: No acute events overnight. States pain control poor Review of Systems Denies chest pain Denies shortness of breath Denies nausea vomiting diarrhea Denies fever chills Physical Exam Vital Signs: Vital Signs: Last Vital Signs Temp 97.5 F 09/16/23 07:39 Pulse 73 09/16/23 07:39 Resp 18 09/16/23 07:39 BP 143/88 H 09/16/23 07:39 Pulse Ox 95 09/16/23 07:39 O2 Del Method Room Air 09/16/23 07:39 BMI result Body Mass Index 22.4 Const: Other: Awake alert no acute distress Resp: Other: Clear to auscultation bilaterally no rales rhonchi or wheezes Cardio: Other: No S4; positive S1-S2; no S3 murmurs rubs or gallops GI: Other: Soft nontender nondistended normoactive bowel sounds Neuro: Other: Cranial nerves 2-12 grossly intact as tested motor 5/5 save affected extremity (left); sensation intact cognition appropriate Extrem: Other: No edema bilaterally Objective Data Active Medications Acetaminophen (Acetaminophen 325 Mg Tablet) 650 mg PO Q6H PRN PRN Reason: Pain, Mild (Pain Scale 1-3), fever or headache Atenolol (Atenolol 50 Mg Tablet) 50 mg PO BEDTIME [facility]; Protocol Last Admin: 09/15/23 21:04 Dose: 50 mg Documented By: MARIMAR Atorvastatin Calcium (Atorvastatin Calcium 20 Mg Tablet) 20 mg PO DAILY [facility] Last Admin: 09/16/23 09:18 Dose: 20 mg Documented By: STUART Benzonatate (Benzonatate 100 Mg Capsule) 100 mg PO TID PRN PRN Reason: Cough Calcium Carbonate (Calcium Carbonate 750 Mg Tab.Chew) 750 mg PO Q4H PRN PRN Reason: Heartburn Calcium Carbonate (Calcium Oyster Shell Elemental 500 Mg Tablet) 500 mg PO BEDTIME [facility] Last Admin: 09/15/23 21:04 Dose: 500 mg Documented By: MARIMAR Cyanocobalamin (Cyanocobalamin (Vitamin B-12) 1,000 Mcg/Ml Vial) 1,000 mcg SUBCUT Q28H [facility] Docusate Sodium (Docusate Sodium 100 Mg Capsule) 100 mg PO DAILY [facility] Last Admin: 09/16/23 09:18 Dose: 100 mg Documented By: STUART Glucose (Glucose Gel 15 Gm Gel..Gram.) 15 gm PO Q15M PRN; Protocol PRN Reason: per Hypoglycemia Standing Ord. Dextrose (D10) 250 mls @ 750 mls/hr IV Q15M PRN; Protocol PRN Reason: per Hypoglycemia Standing Ord. Insulin Human Lispro (Insulin Lispro 100 Unit/Ml 3 Ml Vial) 0 unit SUBCUT QIDACHS [facility]; Protocol Last Admin: 09/16/23 07:51 Dose: Not Given Documented By: STUART Non-Admin Reason: No Insulin Coverage Levothyroxine Sodium (Levothyroxine Sodium 88 Mcg Tablet) 88 mcg PO DAILY@0600 [facility] Last Admin: 09/16/23 05:38 Dose: 88 mcg Documented By: JUAN JOSE Lisinopril (Lisinopril 20 Mg Tablet) 20 mg PO BEDTIME [facility]; Protocol Last Admin: 09/15/23 21:03 Dose: 20 mg Documented By: MARIMAR Magnesium Hydroxide (Milk Of Magnesia 30 Ml Oral.Susp) 30 ml PO DAILY PRN PRN Reason: Constipation Melatonin (Melatonin 3 Mg Tablet) 6 mg PO BEDTIME PRN PRN Reason: Insomnia Morphine Sulfate (Morphine Sulfate 4 Mg/Ml Cartridge) 4 mg IVPUSH Q4H PRN; Protocol PRN Reason: Pain, Severe (Pain Scale 7-10) Last Admin: 09/16/23 07:58 Dose: 4 mg Documented By: STUART Ondansetron HCl (Ondansetron Hcl 4 Mg/2 Ml Vial) 4 mg IVPUSH Q4H PRN PRN Reason: Nausea and Vomiting Last Admin: 09/16/23 08:23 Dose: 4 mg Documented By: STUART Oxycodone HCl (Oxycodone Hcl Immed Release 5 Mg Tablet) 5 mg PO Q4H PRN PRN Reason: Pain, Moderate(Pain Scale 4-6) Last Admin: 09/16/23 09:18 Dose: 5 mg Documented By: STUART Polyethylene Glycol (Polyethylene Glycol 3350 17 Gm Powd.Pack) 17 gm PO DAILY [facility] Last Admin: 09/16/23 09:18 Dose: 17 gm Documented By: STUART Senna (Sennosides 8.6 Mg Tablet) 17.2 mg PO DAILY PRN PRN Reason: Constipation Sodium Chloride (0.9 % Sodium Chloride Flush 3 Ml Syringe) 3 ml IVFLUSH QSHIFT [facility] Last Admin: 09/16/23 07:59 Dose: 3 ml Documented By: STUART Tamsulosin HCl (Tamsulosin Hcl 0.4 Mg Capsule) 0.4 mg PO DAILY [facility] Last Admin: 09/16/23 09:18 Dose: 0.4 mg Documented By: STUART Labs 09/15/23 13:06 09/15/23 13:06 Labs: Laboratory Results - last 24 hr 09/15/23 09/15/23 09/15/23 13:06 17:51 21:11 MCV 74.3 L MCH 22.0 L MCHC 29.6 L RDW 18.8 H Plt Count 236 MPV 9.7 Immature Gran % (Auto) 0.6 H Neut % (Auto) 87.9 H Lymph % (Auto) 6.3 L [place] % (Auto) 4.2 Eos % (Auto) 0.6 Baso % (Auto) 0.4 Lymph # (Auto) 0.6 L [place] # (Auto) 0.4 Eos # (Auto) 0.1 Baso # (Auto) 0.0 Abs Immat Gran (auto) 0.06 H Absolute Neuts (auto) 8.6 H Absolute Nucleated RBC 0.000 Nucleated RBC % (auto) 0.0 Anion Gap 11 L Estim Creat Clear Calc 67.3 Estimated GFR > 60 POC Glucose 175 H 146 H Random Glucose 135 H Calcium 9.3 D Total Bilirubin 0.5 AST 16 ALT 12 Alkaline Phosphatase 75 Total Protein 6.3 L Albumin 4.0 09/16/23 07:45 MCV MCH MCHC RDW Plt Count MPV Immature Gran % (Auto) Neut % (Auto) Lymph % (Auto) [place] % (Auto) Eos % (Auto) Baso % (Auto) Lymph # (Auto) [place] # (Auto) Eos # (Auto) Baso # (Auto) Abs Immat Gran (auto) Absolute Neuts (auto) Absolute Nucleated RBC Nucleated RBC % (auto) Anion Gap Estim Creat Clear Calc Estimated GFR POC Glucose 134 H Random Glucose Calcium Total Bilirubin AST ALT Alkaline Phosphatase Total Protein Albumin Assessment and Plan (1) Left displaced femoral neck fracture: Status: Acute (2) Hypertension: Status: Acute (3) Type 2 diabetes mellitus: Status: Acute Plan Pt is a 78-year-old female with a PMH significant for?CVA in 2022 treated with tPA on aspirin and Plavix, HTN, hypothyroidism, urinary retention, anemia, and hx of CHF unspecified 25+ years ago who presents to the ED for evaluation of left hip after having mechanical at home. Pt will be admitted to the hospital for treatment and further evaluation of left hip fracture requiring surgical intervention. 1.Left hip fracture -urinary retention noted postop. Carver placed will follow clinically -repair timing as per ortho -hold aspirin and Plavix -Lovenox 40 mg subQ today -NPO after midnight 2.Hx of CVA -hold aspirin, clopidogrel 3.CHF (unspecified) -stable and well compensated -continue outpatient therapies 4.HTN -acceptable control on current therapies -adjust as indicated 5.Diet-controlled type 2 diabetes -acceptable control on diet alone -lispro correctional scale DNR/DNI Lovenox Patient will require ongoing hospitalization for surgical intervention to repair left hip fracture Quality Stroke Does the patient have a stroke diagnosis?: No VTE Prior VTE?: No VTE Risk Level:: Medical - moderate - high VTE Device Contraindication: N/A - Device Ordered VTE Drug Contraindication: Treatment Not Indicated
[2023-09-16] MEDS: Enoxaparin Sodium 40 MG/0.4 ML SYRINGE SUBCUT (11:08)
[2023-09-16 11:38] LABS: Glucose, Whole Blood 117 mg/dL (60-115)
--- NOTE | 2023-09-16 12:40 | MHC.CM.PN ---
IMM delivered. Patient lives in an apartment alone. Receives services through [employer] including: daily metal finish inspector, CM, med delivery, shopping, home making. Also reports she is active w/ [facility] for SN. Reports she is indp. w/ hygiene. Ambulates independently, but does have a walker in the home. PCP Sangeetha Sage MD HCP on file and verified, [facility] is friend Saray. DP: Awaiting surgical intervention for hip fx. Goal is rehab. Patient prefers [facility]. Discussed STR vs AR. No preferences for STR. Referrals sent in [facility]. Transport TBD by dispo, if home service net will transport. CM will continue to follow.
[2023-09-16 16:04] LABS: Glucose, Whole Blood 147 mg/dL (60-115)
[2023-09-16 20:11] LABS: Glucose, Whole Blood 153 mg/dL (60-115)
[2023-09-16] MEDS: Insulin Lispro 100 UNIT/ML 3 ML VIAL SUBCUT (20:19)
[2023-09-16] MEDS: atenoloL 50 MG TABLET PO (20:20)
[2023-09-16] MEDS: lisinopriL 20 MG TABLET PO (20:20)
[2023-09-16] MEDS: Calcium Oyster Shell Elemental 500 MG TABLET PO (20:20)
[2023-09-17] VITALS (12 sets, daily range): BP systolic 103–148; BP diastolic 57–90; PULSE 66–92; RESP 15–18; TEMP 36.1–36.9; O2SAT 93–98
[2023-09-17 03:28] LABS: Appearance Urine Turbid; Color Urine Dark Yellow; Glucose Urine UA Negative (Negative); Leukocyte Esterase Urine Large (3+) (Negative); Nitrite Urine Negative (Negative); UMIC TRIGGER UACC YES; Urine Blood Moderate (2+) (Negative); Urine Ketones Trace mg/dL (Negative); Urine Protein 30 (1+) mg/dL (Neg-Trace)
[2023-09-17 04:01] LABS: Bacteria Urine 4+ (None Seen); RBC Urine 0-2 /HPF (0-2); UACC Culture Trigger YES; WBC Urine >50 /HPF (0-5)
[2023-09-17] MEDS: oxyCODONE HCl Immed Release 5 MG TABLET PO ×4 (04:37→23:11)
[2023-09-17] MEDS: Levothyroxine Sodium 88 MCG TABLET PO (04:37)
[2023-09-17 07:32] LABS: Glucose, Whole Blood 143 mg/dL (60-115)
--- NOTE | 2023-09-17 07:58 | P.CONAN_ITS ---
HPI - Anesthesia Eval Consult details Narrative: Left femur fracture PMFSH Active Problems Active Problems: All Active Problems Type 2 diabetes mellitus (Acute) Hypertension (Acute) Left displaced femoral neck fracture (Acute) Post-traumatic osteoarthritis of right knee (Acute) Pneumonia (Acute) Past Medical History Medical History (Updated 09/16/23 @ 10:41 by Ankur Garcia DO) Hypertension Type 2 diabetes mellitus Anemia Thrombocytopenia Cerebrovascular accident Adnexal mass Occult GI bleeding Adult failure to thrive COVID-19 virus infection Major depressive disorder Intellectual disability Ischemic stroke Hernia Hypothyroidism Osteoporosis GERD (gastroesophageal reflux disease) High blood pressure Family History Family history of problems with anesthesia: No Surgical History Surgical History History of rectal surgery History of Problems with Anesthesia: No Social History Social History Household Members: None Housing: House Housing Other:: hotel Do you presently have visiting nurse or other home services: Yes Alcohol intake: never Comment: Pt. currently on bedrest. Patient Tobacco Use Status: Former Tobacco user Tobacco use type: Cigarette Smoked in Last 30 Days: No e-Cigarette/Vaping Use: Former Use Patient Interested in Nicotine Replacement: No Patient Given Instructions on How to Stop Smoking: Yes Date Education Initiated: 09/15/23 Second Hand Smoke Exposure: No Use of substances other than those prescribed or required for medical reasons: No Last Used Substance Other:: DONT USED PER PT Currently Displaying Signs/Symptoms of Drug Intoxication Withdrawal: No Any prior treatment program specific to substance use: No Have you been hit, kicked, punched, or otherwise hurt by someone within the past year? If so, by whom?: No Do you feel safe in your current relationship?: Yes Is there a partner from a previous relationship who is making you feel unsafe now?: No Are you made to feel afraid or neglected: No Spiritual Healthcare Practices: NONE [facility] Practices: NONE Cultural Healthcare Practices: NONE Advance Directives: No Advance Directives Information Provided: Yes Advance Directives on File: No Advance Directives Date on File: 08/07/22 Do you have a plan to hurt others: No Plan Recently lost weight without trying: Yes How much weight loss: 14-23 pounds Eating poorly because of decreased appetite: Yes Nutrition screen score: 5 Nutrition Risks: No Nutritional Risk, Difficulty chewing and Poor intake 0-25% >4 days Patient : No : No Poor oral hygiene: Yes service: No Current occupational status: retired and disabled Meds Allergies Allergy/AdvReac Type Severity Reaction Status Date / Time propoxyphene [From Darvon] Allergy Mild UNKNOWN Verified 09/15/23 12:00 alteplase AdvReac Intermediate Itching Verified 09/15/23 12:00 metformin [Metformin] AdvReac Mild DIARRHEA, Verified 09/15/23 12:00 RASH Active Medications: Current Medications Acetaminophen (Acetaminophen 325 Mg Tablet) 650 mg PO Q6H PRN PRN Reason: Pain, Mild (Pain Scale 1-3), fever or headache Atenolol (Atenolol 50 Mg Tablet) 50 mg PO BEDTIME [facility]; Protocol Last Admin: 09/16/23 20:20 Dose: 50 mg Atorvastatin Calcium (Atorvastatin Calcium 20 Mg Tablet) 20 mg PO DAILY [facility] Last Admin: 09/16/23 09:18 Dose: 20 mg Benzonatate (Benzonatate 100 Mg Capsule) 100 mg PO TID PRN PRN Reason: Cough Calcium Carbonate (Calcium Carbonate 750 Mg Tab.Chew) 750 mg PO Q4H PRN PRN Reason: Heartburn Calcium Carbonate (Calcium Oyster Shell Elemental 500 Mg Tablet) 500 mg PO BEDTIME [facility] Last Admin: 09/16/23 20:20 Dose: 500 mg Cyanocobalamin (Cyanocobalamin (Vitamin B-12) 1,000 Mcg/Ml Vial) 1,000 mcg SUBCUT Q28H [facility] Docusate Sodium (Docusate Sodium 100 Mg Capsule) 100 mg PO DAILY [facility] Last Admin: 09/16/23 09:18 Dose: 100 mg Enoxaparin Sodium (Enoxaparin Sodium 40 Mg/0.4 Ml Syringe) 40 mg SUBCUT Q24H [facility] Last Admin: 09/16/23 11:08 Dose: 40 mg Glucose (Glucose Gel 15 Gm Gel..Gram.) 15 gm PO Q15M PRN; Protocol PRN Reason: per Hypoglycemia Standing Ord. Dextrose (D10) 250 mls @ 750 mls/hr IV Q15M PRN; Protocol PRN Reason: per Hypoglycemia Standing Ord. Cefazolin Sodium/Dextrose (Ancef) 2 gm in 50 mls @ 100 mls/hr IV PREOP ONE Stop: 09/17/23 08:27 Insulin Human Lispro (Insulin Lispro 100 Unit/Ml 3 Ml Vial) 0 unit SUBCUT QIDACHS [facility]; Protocol Last Admin: 09/17/23 07:50 Dose: Not Given Levothyroxine Sodium (Levothyroxine Sodium 88 Mcg Tablet) 88 mcg PO DAILY@0600 [facility] Last Admin: 09/17/23 04:37 Dose: 88 mcg Lisinopril (Lisinopril 20 Mg Tablet) 20 mg PO BEDTIME [facility]; Protocol Last Admin: 09/16/23 20:20 Dose: 20 mg Magnesium Hydroxide (Milk Of Magnesia 30 Ml Oral.Susp) 30 ml PO DAILY PRN PRN Reason: Constipation Melatonin (Melatonin 3 Mg Tablet) 6 mg PO BEDTIME PRN PRN Reason: Insomnia Morphine Sulfate (Morphine Sulfate 4 Mg/Ml Cartridge) 4 mg IVPUSH Q4H PRN; Protocol PRN Reason: Pain, Severe (Pain Scale 7-10) Last Admin: 09/16/23 15:51 Dose: 4 mg Ondansetron HCl (Ondansetron Hcl 4 Mg/2 Ml Vial) 4 mg IVPUSH Q4H PRN PRN Reason: Nausea and Vomiting Last Admin: 09/16/23 08:23 Dose: 4 mg Oxycodone HCl (Oxycodone Hcl Immed Release 5 Mg Tablet) 5 mg PO Q4H PRN PRN Reason: Pain, Moderate(Pain Scale 4-6) Last Admin: 09/17/23 04:37 Dose: 5 mg Polyethylene Glycol (Polyethylene Glycol 3350 17 Gm Powd.Pack) 17 gm PO DAILY [facility] Last Admin: 09/16/23 09:18 Dose: 17 gm Senna (Sennosides 8.6 Mg Tablet) 17.2 mg PO DAILY PRN PRN Reason: Constipation Sodium Chloride (0.9 % Sodium Chloride Flush 3 Ml Syringe) 3 ml IVFLUSH QSHIFT [facility] Last Admin: 09/16/23 20:21 Dose: 3 ml Tamsulosin HCl (Tamsulosin Hcl 0.4 Mg Capsule) 0.4 mg PO DAILY [facility] Last Admin: 09/16/23 09:18 Dose: 0.4 mg Home Medications ?Medication ?Instructions ?Recorded ?Confirmed ?Last Taken ?Type aspirin 81 mg tablet,delayed 81 mg PO BEDTIME 10/13/21 09/15/23 09/15/23 06:00 History release (Adult Low Dose Aspirin) atenolol 50 mg tablet 50 mg PO BEDTIME 10/13/21 09/15/23 09/14/23 History atorvastatin 20 mg tablet 20 mg PO DAILY 10/13/21 09/15/23 09/15/23 06:00 History levothyroxine 88 mcg tablet 88 mcg PO DAILY@0600 10/13/21 09/15/23 09/15/23 06:00 History omega-3 fatty acids 1,000 mg 1,000 mg PO DAILY 10/13/21 09/15/23 09/15/23 06:00 History capsule lisinopril 20 mg tablet 20 mg PO BEDTIME 03/23/22 09/15/23 09/14/23 History calcium carbonate (Oyster Shell 500 mg PO BEDTIME 08/07/22 09/15/23 09/14/23 History Calcium) docusate sodium 100 mg capsule 100 mg PO DAILY 12/21/22 09/15/23 09/15/23 06:00 History clotrimazole 1 % topical cream 1 appl topical BID PRN Rash Under 09/15/23 09/15/23 Unknown History Breast cyanocobalamin (vitamin B-12) 1,000 mcg subcut QMONTH 09/15/23 09/15/23 Unknown History 1,000 mcg/mL injection solution hydrocortisone 2.5 % topical 1 appl topical BID PRN Rash 09/15/23 09/15/23 Unknown History ointment Face/Neck polyethylene glycol 3350 17 17 g PO DAILY 09/15/23 09/15/23 09/15/23 06:00 History gram/dose oral powder sennosides 8.6 mg tablet (senna) 17.2 mg PO DAILY PRN Constipation 09/15/23 09/15/23 Unknown History Exam Height,Weight and Vital Signs: Height 5 ft 3 in Weight 57.3 kg Last Vital Signs Temp 98.5 F 09/17/23 07:17 Pulse 75 09/17/23 07:17 Resp 17 09/17/23 07:17 BP 130/65 09/17/23 07:17 Pulse Ox 93 09/17/23 07:17 O2 Del Method Room Air 09/17/23 07:17 Pertinent Lab Results Pertinent Lab Results: Laboratory Tests 09/15/23 09/15/2309/14/24 13:06 17:51 21:11 WBC 9.8 RBC 4.51 Hgb 9.9 L Hct 33.5 L MCV 74.3 L MCH 22.0 L MCHC 29.6 L RDW 18.8 H Plt Count 236 MPV 9.7 Immature Gran % (Auto) 0.6 H Neut % (Auto) 87.9 H Lymph % (Auto) 6.3 L [place] % (Auto) 4.2 Eos % (Auto) 0.6 Baso % (Auto) 0.4 Lymph # (Auto) 0.6 L [place] # (Auto) 0.4 Eos # (Auto) 0.1 Baso # (Auto) 0.0 Abs Immat Gran (auto) 0.06 H Absolute Neuts (auto) 8.6 H Absolute Nucleated RBC 0.000 Nucleated RBC % (auto) 0.0 Sodium 140 Potassium 3.7 Chloride 107 Carbon Dioxide 26 Anion Gap 11 L BUN 15 Creatinine 0.56 Estim Creat Clear Calc 67.3 Estimated GFR > 60 POC Glucose 175 H 146 H Random Glucose 135 H Calcium 9.3 D Total Bilirubin 0.5 AST 16 ALT 12 Alkaline Phosphatase 75 Total Protein 6.3 L Albumin 4.0 Urine Color Urine Appearance Urine pH Ur Specific [place] Urine Protein Urine Glucose (UA) Urine Ketones Urine Blood Urine Nitrite Ur Leukocyte Esterase Urine RBC Urine WBC Ur Squamous Epith Cells Urine Bacteria Hyaline Casts 09/16/23 09/16/23 09/16/23 07:45 11:23 15:58 WBC RBC Hgb Hct MCV MCH MCHC RDW Plt Count MPV Immature Gran % (Auto) Neut % (Auto) Lymph % (Auto) [place] % (Auto) Eos % (Auto) Baso % (Auto) Lymph # (Auto) [place] # (Auto) Eos # (Auto) Baso # (Auto) Abs Immat Gran (auto) Absolute Neuts (auto) Absolute Nucleated RBC Nucleated RBC % (auto) Sodium Potassium Chloride Carbon Dioxide Anion Gap BUN Creatinine Estim Creat Clear Calc Estimated GFR POC Glucose 134 H 117 H 147 H Random Glucose Calcium Total Bilirubin AST ALT Alkaline Phosphatase Total Protein Albumin Urine Color Urine Appearance Urine pH Ur Specific [place] Urine Protein Urine Glucose (UA) Urine Ketones Urine Blood Urine Nitrite Ur Leukocyte Esterase Urine RBC Urine WBC Ur Squamous Epith Cells Urine Bacteria Hyaline Casts 09/16/23 09/17/23 09/17/23 20:04 03:15 07:21 WBC RBC Hgb Hct MCV MCH MCHC RDW Plt Count MPV Immature Gran % (Auto) Neut % (Auto) Lymph % (Auto) [place] % (Auto) Eos % (Auto) Baso % (Auto) Lymph # (Auto) [place] # (Auto) Eos # (Auto) Baso # (Auto) Abs Immat Gran (auto) Absolute Neuts (auto) Absolute Nucleated RBC Nucleated RBC % (auto) Sodium Potassium Chloride Carbon Dioxide Anion Gap BUN Creatinine Estim Creat Clear Calc Estimated GFR POC Glucose 153 H 143 H Random Glucose Calcium Total Bilirubin AST ALT Alkaline Phosphatase Total Protein Albumin Urine Color Dark Yellow Urine Appearance Turbid Urine pH 6.0 Ur Specific [place] 1.020 Urine Protein 30 (1+) H Urine Glucose (UA) Negative Urine Ketones Trace Urine Blood Moderate (2+) H Urine Nitrite Negative Ur Leukocyte Esterase Large (3+) H Urine RBC 0-2 Urine WBC >50 Ur Squamous Epith Cells 6-10 Urine Bacteria 4+ Hyaline Casts 6-10 Airway Mallampati Class: II TM Dist: >3cm Neck ROM: Full Loose/Missing/Broken Teeth: No Heart: RRR Lungs: CTA Assessment and Plan Assessment Anesthesia Assessment: Anesthesia Plan Discussed and Chart Reviewed Final Anesthetic Review Family History of Problems with Anesthesia: No History of Problems with Anesthesia: No NPO: Yes ASA Class: III Final Preanesthetic Review: No Changes in Pt Med Stat, Meds/Allgs Chart Reviewed, Consent Obtained/Reviewed and Anes Risks/Benef Reviewed Patient Risk: High Procedure Risk: Intermediate Anesthetic Plan Anesthetic Plan: GA Disposition: Standard PACU
--- NOTE | 2023-09-17 08:06 | PC.NURSE ---
Patient transported for surgical procedure.
--- NOTE | 2023-09-17 09:36 | P.BOP_ITS ---
Brief Operative Note Date of Service: 09/17/23 Pre-op diagnosis: Left femoral neck fracture Post-op diagnosis: same Procedure: Left hip hemiarthroplasty Implants: Jonny Accolade2 #4 127 deg with +4/ bipolar Surgeon: Chris Manning MD Anesthesia: GETA and local Was an Import Customer Service Manager used for this Procedure?: No Import Customer Service Manager: Genevieve Tyler Estimated blood loss (mL): 150 IV fluids (mL): 700 Pathology: other Condition: stable Disposition: PACU Assessment and Plan (No Qualifiers) Assessment and Plan (1) Left displaced femoral neck fracture: Status: Acute Plan: Lovenox or Eliquis. Question restarting Plavix ( confirm with Medicine/cards as Plavix ana suitable for dvt proph) (2) Hypertension: Status: Acute (3) Type 2 diabetes mellitus: Status: Acute
--- NOTE | 2023-09-17 10:25 | PC.NURSE ---
xray completed forleft hip pt denies pain vss nad stating i want to sleep no facial grimacing pwd good cms tranferred to floor in bed
[2023-09-17] MEDS: Enoxaparin Sodium 40 MG/0.4 ML SYRINGE SUBCUT (11:01)
[2023-09-17] MEDS: Lactated Ringers 1,000 ML 100 ML IVCONT ×2 (11:07→22:01)
[2023-09-17 11:16] LABS: Glucose, Whole Blood 125 mg/dL (60-115)
--- NOTE | 2023-09-17 13:22 | P.PNIM_ITS ---
Subjective Subjective Date of Service: 09/17/23 Interval History: Surgery this a.m. without issue Review of Systems Denies chest pain Denies shortness of breath Denies nausea vomiting diarrhea Denies fever chills Physical Exam 2 Vital Signs: Vital Signs: Last Vital Signs Temp 97.5 F 09/17/23 11:00 Pulse 66 09/17/23 11:00 Resp 17 09/17/23 11:00 BP 109/58 L 09/17/23 11:00 Pulse Ox 97 09/17/23 11:00 O2 Del Method Nasal Cannula 09/17/23 11:00 O2 Flow Rate 2.5 09/17/23 11:00 BMI result Body Mass Index 22.4 Const: Other: Awake alert no acute distress Resp: Other: Clear to auscultation bilaterally no rales rhonchi or wheezes Cardio: Other: No S4; positive S1-S2; no S3 murmurs rubs or gallops GI: Other: Soft nontender nondistended normoactive bowel sounds Neuro: Other: Cranial nerves 2-12 grossly intact as tested motor 5/5 save affected extremity (left); sensation intact cognition appropriate Extrem: Other: No edema bilaterally Objective Data Active Medications Acetaminophen (Acetaminophen 325 Mg Tablet) 650 mg PO Q6H PRN PRN Reason: Pain, Mild (Pain Scale 1-3), fever or headache Atenolol (Atenolol 50 Mg Tablet) 50 mg PO BEDTIME [facility]; Protocol Last Admin: 09/16/23 20:20 Dose: 50 mg Documented By: JUAN JOSE Atorvastatin Calcium (Atorvastatin Calcium 20 Mg Tablet) 20 mg PO DAILY [facility] Last Admin: 09/17/23 08:13 Dose: Not Given Documented By: STUART Non-Admin Reason: Physician Held Med Benzonatate (Benzonatate 100 Mg Capsule) 100 mg PO TID PRN PRN Reason: Cough Calcium Carbonate (Calcium Carbonate 750 Mg Tab.Chew) 750 mg PO Q4H PRN PRN Reason: Heartburn Calcium Carbonate (Calcium Oyster Shell Elemental 500 Mg Tablet) 500 mg PO BEDTIME [facility] Last Admin: 09/16/23 20:20 Dose: 500 mg Documented By: JUAN JOSE Cyanocobalamin (Cyanocobalamin (Vitamin B-12) 1,000 Mcg/Ml Vial) 1,000 mcg SUBCUT Q28H [facility] Docusate Sodium (Docusate Sodium 100 Mg Capsule) 100 mg PO DAILY [facility] Last Admin: 09/17/23 08:13 Dose: Not Given Documented By: STUART Non-Admin Reason: Physician Held Med Enoxaparin Sodium (Enoxaparin Sodium 40 Mg/0.4 Ml Syringe) 40 mg SUBCUT Q24H [facility] Last Admin: 09/17/23 11:01 Dose: 40 mg Documented By: STUART Glucose (Glucose Gel 15 Gm Gel..Gram.) 15 gm PO Q15M PRN; Protocol PRN Reason: per Hypoglycemia Standing Ord. Dextrose (D10) 250 mls @ 750 mls/hr IV Q15M PRN; Protocol PRN Reason: per Hypoglycemia Standing Ord. Lactated Ringer's (Lr) 1,000 mls @ 100 mls/hr IVCONT .Q10H [facility] Last Admin: 09/17/23 11:07 Dose: 100 mls/hr Documented By: STUART Cefazolin Sodium/Dextrose (Ancef) 2 gm in 50 mls @ 100 mls/hr IV POSTOP@1445 [facility] Insulin Human Lispro (Insulin Lispro 100 Unit/Ml 3 Ml Vial) 0 unit SUBCUT QIDACHS [facility]; Protocol Last Admin: 09/17/23 11:21 Dose: Not Given Documented By: STUART Non-Admin Reason: No Insulin Coverage Levothyroxine Sodium (Levothyroxine Sodium 88 Mcg Tablet) 88 mcg PO DAILY@0600 [facility] Last Admin: 09/17/23 04:37 Dose: 88 mcg Documented By: JUAN JOSE Lisinopril (Lisinopril 20 Mg Tablet) 20 mg PO BEDTIME [facility]; Protocol Last Admin: 09/16/23 20:20 Dose: 20 mg Documented By: JUAN JOSE Magnesium Hydroxide (Milk Of Magnesia 30 Ml Oral.Susp) 30 ml PO DAILY PRN PRN Reason: Constipation Melatonin (Melatonin 3 Mg Tablet) 6 mg PO BEDTIME PRN PRN Reason: Insomnia Morphine Sulfate (Morphine Sulfate 4 Mg/Ml Cartridge) 4 mg IVPUSH Q4H PRN; Protocol PRN Reason: Pain, Severe (Pain Scale 7-10) Last Admin: 09/16/23 15:51 Dose: 4 mg Documented By: STUART Ondansetron HCl (Ondansetron Hcl 4 Mg/2 Ml Vial) 4 mg IVPUSH Q4H PRN PRN Reason: Nausea and Vomiting Last Admin: 09/16/23 08:23 Dose: 4 mg Documented By: STUART Oxycodone HCl (Oxycodone Hcl Immed Release 5 Mg Tablet) 5 mg PO Q4H PRN PRN Reason: Pain, Moderate(Pain Scale 4-6) Last Admin: 09/17/23 04:37 Dose: 5 mg Documented By: JUAN JOSE Polyethylene Glycol (Polyethylene Glycol 3350 17 Gm Powd.Pack) 17 gm PO DAILY [facility] Last Admin: 09/17/23 08:13 Dose: Not Given Documented By: STUART Non-Admin Reason: Physician Held Med Senna (Sennosides 8.6 Mg Tablet) 17.2 mg PO DAILY PRN PRN Reason: Constipation Sodium Chloride (0.9 % Sodium Chloride Flush 3 Ml Syringe) 3 ml IVFLUSH QSHIFT [facility] Last Admin: 09/17/23 08:10 Dose: Not Given Documented By: STUART Non-Admin Reason: Previously Administered Tamsulosin HCl (Tamsulosin Hcl 0.4 Mg Capsule) 0.4 mg PO DAILY [facility] Last Admin: 09/17/23 08:13 Dose: Not Given Documented By: STUART Non-Marycruz Reason: Physician Held Med Labs 09/15/23 13:06 09/15/23 13:06 Labs: Laboratory Results - last 24 hr 09/16/23 09/16/23 09/17/23 15:58 20:04 03:15 POC Glucose 147 H 153 H Urine Color Dark Yellow Urine Appearance Turbid Urine pH 6.0 Ur Specific [place] 1.020 Urine Protein 30 (1+) H Urine Glucose (UA) Negative Urine Ketones Trace Urine Blood Moderate (2+) H Urine Nitrite Negative Ur Leukocyte Esterase Large (3+) H Urine RBC 0-2 Urine WBC >50 Ur Squamous Epith Cells 6-10 Urine Bacteria 4+ Hyaline Casts 6-10 Blood Type Antibody Screen 09/17/23 09/17/23 09/17/23 07:21 09:53 11:10 POC Glucose 143 H 125 H Urine Color Urine Appearance Urine pH Ur Specific [place] Urine Protein Urine Glucose (UA) Urine Ketones Urine Blood Urine Nitrite Ur Leukocyte Esterase Urine RBC Urine WBC Ur Squamous Epith Cells Urine Bacteria Hyaline Casts Blood Type A Positive Antibody Screen NEGATIVE Assessment and Plan (1) Left displaced femoral neck fracture: Status: Acute (2) Type 2 diabetes mellitus: Status: Acute Plan Pt is a 78-year-old female with a PMH significant for?CVA in 2022 treated with tPA on aspirin and Plavix, HTN, hypothyroidism, urinary retention, anemia, and hx of CHF unspecified 25+ years ago who presents to the ED for evaluation of left hip after having mechanical at home. Pt will be admitted to the hospital for treatment and further evaluation of left hip fracture requiring surgical intervention. 1.Left hip fracture -no acute issues immediately postop -Lovenox daily -further plans as per ortho 2.Hx of CVA -hold aspirin, clopidogrel -we will discuss with ortho in a.m. 3.CHF (unspecified) -stable and well compensated -continue outpatient therapies 4.HTN -acceptable control on current therapies -adjust as indicated 5.Diet-controlled type 2 diabetes -acceptable control on diet alone -lispro correctional scale DNR/DNI Lovenox Patient will require ongoing hospitalization for surgical intervention to repair left hip fracture Quality Stroke Does the patient have a stroke diagnosis?: No VTE Prior VTE?: No VTE Risk Level:: Medical - moderate - high VTE Device Contraindication: N/A - Device Ordered VTE Drug Contraindication: Treatment Not Indicated
[2023-09-17] MEDS: ceFAZolin Sodium/Dextrose,Iso 2 GM/50 ML PIGGYBACK IV (14:22)
[2023-09-17 16:24] LABS: Glucose, Whole Blood 129 mg/dL (60-115)
[2023-09-17 20:43] LABS: Glucose, Whole Blood 139 mg/dL (60-115)
[2023-09-17] MEDS: Melatonin 3 MG TABLET 6 MG PO (21:55)
[2023-09-17] MEDS: atenoloL 50 MG TABLET PO (21:55)
[2023-09-17] MEDS: Calcium Oyster Shell Elemental 500 MG TABLET PO (21:56)
[2023-09-17] MEDS: lisinopriL 20 MG TABLET PO (21:56)
[2023-09-17] MEDS: Acetaminophen 325 MG TABLET 650 MG PO (21:56)
[2023-09-18] VITALS (7 sets, daily range): BP systolic 112–133; BP diastolic 56–70; PULSE 77–94; RESP 16–20; TEMP 36–37.3; O2SAT 92–95
[2023-09-18] MEDS: oxyCODONE HCl Immed Release 5 MG TABLET PO ×5 (03:54→21:49)
[2023-09-18] MEDS: Levothyroxine Sodium 88 MCG TABLET PO (05:35)
[2023-09-18 06:05] LABS: MANUAL DIFF FLAG NO
[2023-09-18 06:25] LABS: Alanine Aminotransferase 10 U/L (0-31); Albumin Level 3.2 g/dL (3.5-5.0); Alkaline Phosphatase 58 U/L (39-117); Anion Gap 12 (12-20); Aspartate Amino Transferase 17 U/L (5-31); Bilirubin Total 0.9 mg/dL (0.0-1.0); Blood Urea Nitrogen 15 mg/dL (9-16); Calcium 8.9 mg/dL (8.4-10.2); Carbon Dioxide 27 mmol/L (22-29); Chloride 101 mmol/L (96-108); Creatinine Clr Calc Pharmacy 69.9; Estimated Glomerular Filt Rate > 60; Glucose Fasting 148 mg/dL (60-99); Potassium 4.4 mmol/L (3.3-5.1); Sodium 136 mmol/L (135-145); Total Protein 5.6 g/dL (6.5-8.0)
[2023-09-18 07:00] LABS: Basophils Percent Auto 0.5 % (0-2); Eosinophils Percent Auto 0.5 % (0-4); Hematocrit 28.5 % (37.0-47.0); Hemoglobin 8.5 g/dl (12.0-16.0); Imm Gran Abs Auto 0.04 X10*3/uL (0.00-0.03); Imm Gran Pct Auto 0.5 % (0.0-0.4); Lymphocytes Absolute Auto 0.6 X10*3/uL (1.2-4.9); Lymphocytes Percent Auto 6.8 % (20-40); Mean Corpuscular HGB Conc 29.8 g/dl (31.0-35.0); Mean Corpuscular Hemoglobin 22.4 pg (27.0-33.0); Mean Corpuscular Volume 75.2 fL (80.0-98.0); Mean Platelet Volume 10.3 fL (9.4-12.3); Monocytes Absolute Auto 1.1 X10*3/uL (0.1-1.2); Monocytes Percent Auto 12.7 % (2-11); Platelet Count 195 X10*3/uL (160-400); Red Blood Count 3.79 X10*6/uL (4.20-5.50); Red Cell Distribution Width 18.8 % (11.0-16.0); White Blood Count 8.9 X10*3/uL (4.8-10.8)
--- NOTE | 2023-09-18 07:36 | PM.PNORT ---
Subjective Subjective Date of Service: 09/18/23 Interval history: POD1 s/p left hip nica Patient is resting in bed No overnight events Reports left hip pain No additional complaints Physical Exam Vital Signs: Vital Signs: Last Vital Signs Temp 96.9 F 09/18/23 07:13 Pulse 78 09/18/23 00:00 Resp 20 09/18/23 07:13 BP 126/58 L 09/18/23 07:13 Pulse Ox 95 09/18/23 00:00 O2 Del Method Nasal Cannula 09/18/23 00:00 O2 Flow Rate 2 09/18/23 00:00 BMI result Body Mass Index 22.4 Const: General: cooperative, healthy appearing and no acute distress Resp: Effort & Inspection: normal respiratory effort and able to speak in complete sentences Cardio: Rate: regular rate Peripheral pulses: Peripheral pulses 2+ throughout GI: Palpation (GI): Soft to palpation Skin: Lesions: no lesions Rashes: no rashes Extrem: Other: left hip dressing is c/d/i. Able to dorsi/plantar flex. Calf is supple and nontender. Sensation intact. Pedal pulse intact. Procedures Date of Service Date of Service: 09/18/23 Progress Note: A&P Assessment and plan (1) Type 2 diabetes mellitus: Status: Acute (2) Left displaced femoral neck fracture: Status: Acute Assessment and Plan: Continue pain mgmnt Begin Loveonx for dvt ppx --> Resume Plavix 48 hours post op begin PT/OT for Left hip nica - posterior precautions Dispo planning-Pending PT eval, pain mgmnt, okay for discharge to rehab once medically cleared Time Spent With Patient Time: Total time managing care of this patient today ____ minutes. Quality Stroke Does the patient have a stroke diagnosis?: No VTE Prior VTE?: No VTE Risk Level:: Medical - moderate - high VTE Device Contraindication: N/A - Device Ordered VTE Drug Contraindication: Treatment Not Indicated
[2023-09-18 07:51] LABS: Glucose, Whole Blood 125 mg/dL (60-115)
--- NOTE | 2023-09-18 08:29 | HO.POSTANES ---
Post Anesthesia Evaluation Post Anesthesia Evaluation Date of Service: 09/18/23 Vital Signs: Vital Signs Temp Pulse Resp BP Pulse Ox O2 Del Method O2 Flow Rate 09/18/23 07:13 96.9 F 20 126/58 L 09/18/23 00:00 96.8 F 78 18 133/70 95 Nasal Cannula 2 09/17/23 21:56 124/64 09/17/23 21:55 92 125/64 09/17/23 20:36 97 F 92 18 125/64 94 Nasal Cannula 2 Anesthesia: General LMA Mental Status: Awake Pain Control: Satisfactory Nausea/Vomiting: None Hydration: Adequate Anesthesia-Related Issues: No Anes. Related Issues
[2023-09-18] MEDS: Atorvastatin Calcium 20 MG TABLET PO (08:32)
[2023-09-18] MEDS: Acetaminophen 325 MG TABLET 650 MG PO (08:32)
[2023-09-18] MEDS: Tamsulosin HCL 0.4 MG CAPSULE PO (08:32)
[2023-09-18] MEDS: Lactated Ringers 1,000 ML 100 ML IVCONT ×2 (09:27→17:51)
--- NOTE | 2023-09-18 10:42 | P.PNIM_ITS ---
Subjective Subjective Date of Service: 09/18/23 Interval History: Pain control adequate. Still not very mobile Review of Systems Denies chest pain Denies shortness of breath Denies nausea vomiting diarrhea Denies fever chills Physical Exam 2 Vital Signs: Vital Signs: Last Vital Signs Temp 96.9 F 09/18/23 07:13 Pulse 78 09/18/23 00:00 Resp 20 09/18/23 07:13 BP 126/58 L 09/18/23 07:13 Pulse Ox 95 09/18/23 00:00 O2 Del Method Nasal Cannula 09/18/23 00:00 O2 Flow Rate 2 09/18/23 00:00 BMI result Body Mass Index 22.4 Const: Other: Awake alert no acute distress Resp: Other: Clear to auscultation bilaterally no rales rhonchi or wheezes Cardio: Other: No S4; positive S1-S2; no S3 murmurs rubs or gallops GI: Other: Soft nontender nondistended normoactive bowel sounds Neuro: Other: Cranial nerves 2-12 grossly intact as tested motor 5/5 save affected extremity (left); sensation intact cognition appropriate Extrem: Other: No edema bilaterally Objective Data Active Medications Acetaminophen (Acetaminophen 325 Mg Tablet) 650 mg PO Q6H PRN PRN Reason: Pain, Mild (Pain Scale 1-3), fever or headache Last Admin: 09/18/23 08:32 Dose: 650 mg Documented By: JESUS Atenolol (Atenolol 50 Mg Tablet) 50 mg PO BEDTIME [facility]; Protocol Last Admin: 09/17/23 21:55 Dose: 50 mg Documented By: KILO Atorvastatin Calcium (Atorvastatin Calcium 20 Mg Tablet) 20 mg PO DAILY [facility] Last Admin: 09/18/23 08:32 Dose: 20 mg Documented By: JESUS Benzonatate (Benzonatate 100 Mg Capsule) 100 mg PO TID PRN PRN Reason: Cough Calcium Carbonate (Calcium Carbonate 750 Mg Tab.Chew) 750 mg PO Q4H PRN PRN Reason: Heartburn Calcium Carbonate (Calcium Oyster Shell Elemental 500 Mg Tablet) 500 mg PO BEDTIME [facility] Last Admin: 09/17/23 21:56 Dose: 500 mg Documented By: KILO Cyanocobalamin (Cyanocobalamin (Vitamin B-12) 1,000 Mcg/Ml Vial) 1,000 mcg SUBCUT Q28H [facility] Docusate Sodium (Docusate Sodium 100 Mg Capsule) 100 mg PO DAILY [facility] Last Admin: 09/18/23 08:33 Dose: Not Given Documented By: JESUS Non-Admin Reason: Patient Refused Enoxaparin Sodium (Enoxaparin Sodium 40 Mg/0.4 Ml Syringe) 40 mg SUBCUT Q24H [facility] Last Admin: 09/17/23 11:01 Dose: 40 mg Documented By: STUART Glucose (Glucose Gel 15 Gm Gel..Gram.) 15 gm PO Q15M PRN; Protocol PRN Reason: per Hypoglycemia Standing Ord. Dextrose (D10) 250 mls @ 750 mls/hr IV Q15M PRN; Protocol PRN Reason: per Hypoglycemia Standing Ord. Lactated Ringer's (Lr) 1,000 mls @ 100 mls/hr IVCONT .Q10H [facility] Last Admin: 09/18/23 09:27 Dose: 100 mls/hr Documented By: ZAINAB Cefazolin Sodium/Dextrose (Ancef) 2 gm in 50 mls @ 100 mls/hr IV POSTOP@1445 [facility] Last Infusion: 09/17/23 15:07 Dose: Infused Documented By: STUART Insulin Human Lispro (Insulin Lispro 100 Unit/Ml 3 Ml Vial) 0 unit SUBCUT QIDACHS [facility]; Protocol Last Admin: 09/18/23 08:25 Dose: Not Given Documented By: ZAINAB Non-Admin Reason: No Insulin Coverage Levothyroxine Sodium (Levothyroxine Sodium 88 Mcg Tablet) 88 mcg PO DAILY@0600 [facility] Last Admin: 09/18/23 05:35 Dose: 88 mcg Documented By: KILO Lisinopril (Lisinopril 20 Mg Tablet) 20 mg PO BEDTIME [facility]; Protocol Last Admin: 09/17/23 21:56 Dose: 20 mg Documented By: KILO Magnesium Hydroxide (Milk Of Magnesia 30 Ml Oral.Susp) 30 ml PO DAILY PRN PRN Reason: Constipation Melatonin (Melatonin 3 Mg Tablet) 6 mg PO BEDTIME PRN PRN Reason: Insomnia Last Admin: 09/17/23 21:55 Dose: 6 mg Documented By: KILO Morphine Sulfate (Morphine Sulfate 4 Mg/Ml Cartridge) 4 mg IVPUSH Q4H PRN; Protocol PRN Reason: Pain, Severe (Pain Scale 7-10) Last Admin: 09/16/23 15:51 Dose: 4 mg Documented By: STUART Ondansetron HCl (Ondansetron Hcl 4 Mg/2 Ml Vial) 4 mg IVPUSH Q4H PRN PRN Reason: Nausea and Vomiting Last Admin: 09/16/23 08:23 Dose: 4 mg Documented By: STUART Oxycodone HCl (Oxycodone Hcl Immed Release 5 Mg Tablet) 5 mg PO Q4H PRN PRN Reason: Pain, Moderate(Pain Scale 4-6) Last Admin: 09/18/23 08:33 Dose: 5 mg Documented By: JESUS Polyethylene Glycol (Polyethylene Glycol 3350 17 Gm Powd.Pack) 17 gm PO DAILY [facility] Last Admin: 09/18/23 08:33 Dose: Not Given Documented By: JESUS Non-Admin Reason: Patient Refused Senna (Sennosides 8.6 Mg Tablet) 17.2 mg PO DAILY PRN PRN Reason: Constipation Sodium Chloride (0.9 % Sodium Chloride Flush 3 Ml Syringe) 3 ml IVFLUSH QSHIFT [facility] Last Admin: 09/18/23 08:33 Dose: Not Given Documented By: JESUS Non-Admin Reason: IV Running Tamsulosin HCl (Tamsulosin Hcl 0.4 Mg Capsule) 0.4 mg PO DAILY [facility] Last Admin: 09/18/23 08:32 Dose: 0.4 mg Documented By: JESUS Labs 09/18/23 05:40 09/18/23 05:40 Labs: Laboratory Results - last 24 hr 09/17/23 09/17/23 09/17/23 11:10 16:12 20:39 MCV MCH MCHC RDW Plt Count MPV Immature Gran % (Auto) Neut % (Auto) Lymph % (Auto) Teller % (Auto) Eos % (Auto) Baso % (Auto) Lymph # (Auto) Teller # (Auto) Eos # (Auto) Baso # (Auto) Abs Immat Gran (auto) Absolute Neuts (auto) Absolute Nucleated RBC Nucleated RBC % (auto) Anion Gap Estim Creat Clear Calc Estimated GFR POC Glucose 125 H 129 H 139 H Fasting Glucose Calcium Total Bilirubin AST ALT Alkaline Phosphatase Total Protein Albumin 09/18/23 09/18/23 05:40 07:21 MCV 75.2 L MCH 22.4 L MCHC 29.8 L RDW 18.8 H Plt Count 195 MPV 10.3 Immature Gran % (Auto) 0.5 H Neut % (Auto) 79.0 H Lymph % (Auto) 6.8 L Teller % (Auto) 12.7 H Eos % (Auto) 0.5 Baso % (Auto) 0.5 Lymph # (Auto) 0.6 L Teller # (Auto) 1.1 Eos # (Auto) 0.0 Baso # (Auto) 0.0 Abs Immat Gran (auto) 0.04 H Absolute Neuts (auto) 7.0 Absolute Nucleated RBC 0.000 Nucleated RBC % (auto) 0.0 Anion Gap 12 Estim Creat Clear Calc 69.9 Estimated GFR > 60 POC Glucose 125 H Fasting Glucose 148 H Calcium 8.9 Total Bilirubin 0.9 AST 17 ALT 10 Alkaline Phosphatase 58 Total Protein 5.6 L Albumin 3.2 L Microbiology Microbiology Results: Microbiology 09/17/23 Unknown Urine Culture - Preliminary Urine Catheterized - [facility] Catheter Culture in progress. Assessment and Plan (1) Left displaced femoral neck fracture: Status: Acute (2) Type 2 diabetes mellitus: Status: Acute (3) Hypertension: Status: Acute Plan Pt is a 78-year-old female with a PMH significant for?CVA in 2022 treated with tPA on aspirin and Plavix, HTN, hypothyroidism, urinary retention, anemia, and hx of CHF unspecified 25+ years ago who presents to the ED for evaluation of left hip after having mechanical at home. Pt will be admitted to the hospital for treatment and further evaluation of left hip fracture requiring surgical intervention. 1.Left hip fracture -no acute issues immediately postop -Lovenox daily -further plans as per ortho 2.Hx of CVA -restart Plavix tomorrow a.m. along with aspirin 3.CHF (unspecified) -stable and well compensated -continue outpatient therapies 4.HTN -acceptable control on current therapies -adjust as indicated 5.Diet-controlled type 2 diabetes -acceptable control on diet alone -lispro correctional scale DNR/DNI Lovenox Patient will require ongoing hospitalization for surgical intervention to repair left hip fracture Quality Stroke Does the patient have a stroke diagnosis?: No VTE Prior VTE?: No VTE Risk Level:: Medical - moderate - high VTE Device Contraindication: N/A - Device Ordered VTE Drug Contraindication: Treatment Not Indicated
[2023-09-18 11:23] LABS: Glucose, Whole Blood 144 mg/dL (60-115)
[2023-09-18] MEDS: Enoxaparin Sodium 40 MG/0.4 ML SYRINGE SUBCUT (11:54)
--- NOTE | 2023-09-18 13:50 | MHC.CM.PN ---
Addendum entered by Barbie Dowd 09/18/23 15:48: Patient has accepted the bed offer from [facility] per Service Net RN, Roman Anderson. Original Note: Patient has received PT and OT evaluations. Both recommend STR. A clinical update has been sent to the STR referrals. DP STR via BLS.
--- NOTE | 2023-09-18 15:54 | PC.NURSE ---
Called pharmacy about a 2 gm Cefazolin ordered as Pre op at 1445. Pharmacy order not to give it, and they will D/C the order.
[2023-09-18 16:11] LABS: Glucose, Whole Blood 148 mg/dL (60-115)
[2023-09-18 19:42] LABS: Glucose, Whole Blood 134 mg/dL (60-115)
[2023-09-18] MEDS: atenoloL 50 MG TABLET PO (20:33)
[2023-09-18] MEDS: lisinopriL 20 MG TABLET PO (20:33)
[2023-09-18] MEDS: Calcium Oyster Shell Elemental 500 MG TABLET PO (20:35)
--- NOTE | 2023-09-19 02:00 | PC.NURSE ---
Pt bladder scanned with 300ml. First, straight cath for 350mls. Pt tolerated well. Pt is due to void by 0800.
[2023-09-19] MEDS: oxyCODONE HCl Immed Release 5 MG TABLET PO ×3 (03:11→11:25)
[2023-09-19] MEDS: Lactated Ringers 1,000 ML 100 ML IVCONT (03:12)
[2023-09-19] MEDS: Levothyroxine Sodium 88 MCG TABLET PO (06:04)
[2023-09-19 07:48] LABS: Glucose, Whole Blood 110 mg/dL (60-115)
[2023-09-19 08:19] VITALS: BP 114/58; PULSE 81; RESP 12; TEMP 36.4; O2SAT 95
[2023-09-19] MEDS: Docusate Sodium 100 MG CAPSULE PO (08:54)
[2023-09-19] MEDS: Tamsulosin HCL 0.4 MG CAPSULE PO (08:55)
[2023-09-19] MEDS: Atorvastatin Calcium 20 MG TABLET PO (08:55)
--- NOTE | 2023-09-19 09:21 | MHC.CM.PN ---
IMM 09/19/23 Patient is discharged today. She will discharge to [facility] for STR this afternoon. Transport is booked for 2pm pick up and delivery driver. The MD, RN and STR are aware. Patients HCP Saray Nair has been notified of the discharge time today.
--- NOTE | 2023-09-19 09:35 | P.OP_ITS ---
Operative Note Operative Note Date of Service: 09/17/23 Narrative: Date of Service: 09/17/23 Pre-op diagnosis: Left femoral neck fracture Post-op diagnosis: same Procedure: Left hip hemiarthroplasty Implants: Jonny Accolade2 #4 127 deg with +4/46 bipolar Surgeon: Chris Manning MD Anesthesia: GETA and local Was an Facing Cutting Machine Operator used for this Procedure?: No Facing Cutting Machine Operator: Genevieve Tyler Estimated blood loss (mL): 150 IV fluids (mL): 700 Pathology: other Condition: stable Disposition: PACU Procedure in detail: Patient was brought to the operative room placed in the lateral decubitus position. All bony prominences were well padded and the was prepped and draped in standard sterile fashion. IV antibiotics per weight were administered and a time-out was called to identify proper site proper procedure proper surgeon. Radiographs were available and confirmed. I began by making a curvilinear incision over the posterolateral aspect of the greater trochanter. Dissection was taken down to the tensor fascia which was incised in line with the incision and a Charnley retractor was placed. The hip was internally rotated and the external rotators were identified. All vessels in the area were cauterized and a full-thickness capsular/external rotator layer was developed in a hockey-stick fashion starting just proximal to the piriformis. This layer was tagged and the displaced femoral neck fracture was identified. Clean-up cuts was performed while protecting the posteriorsoft tissues and the head was removed and measured (46 mm) on the back table. I then copiously irrigated the acetabulum and removed all bony fragments. Once this was done I used a cookie cutter to l ateralize and a Charbetoey awl to identify the canal and then sequentially broached up to a 127 deg #4. I then trialed with a standard and a + 4 head and a bipolar component matching the femoral head size. I was satisfied with the range of motion and stability and length using the +4. Therefore I removed all instrumentation and copiously irrigated. I then placed my final femoral implant and then retrialed. I was satisfied with the +4/46 implants. My final bipolar components were then placed. I closed the capsular layer with FiberWire., I performed a layered closure with sebastián on skin. The patient was placed in sterile dressing extubated brought to recovery room in stable condition there were no known complications.
[2023-09-19] MEDS: Enoxaparin Sodium 40 MG/0.4 ML SYRINGE SUBCUT (10:53)
[2023-09-19 11:38] LABS: Glucose, Whole Blood 129 mg/dL (60-115)
--- NOTE | 2023-09-19 12:57 | P.DS_ITS ---
DS: Providers Provider Date of Service: 09/19/23 Date of admission: 09/15/23 15:05 Date of discharge: 09/19/23 Primary care physician: Sangeetha Sage MD Consults: 09/15/23 15:15 Consult to Orthopedics Routine Consulting Provider: [facility] Reason for consultation: Left hip fracture s/p mechanical fall at home DS: Diagnosis Discharge Diagnosis (1) Left displaced femoral neck fracture: Status: Acute (2) Type 2 diabetes mellitus: Status: Acute (3) Hypertension: Status: Acute DS: Summary Hospital Course Hospital Course: 78-year-old female with a PMH significant for?CVA in 2022 treated with tPA on aspirin and Plavix, HTN, hypothyroidism, urinary retention, anemia, and hx of C HF unspecified 25+ years ago who presents to the ED for evaluation of left hip after having mechanical at home. Patient lives at home where she has a daily healthcare worker who helps her out with medication and ADLs. Patient went over to her healthcare worker's house to visit the dogs when patient tripped over the entrance way into the house and fell on her left hip. Patient initially had left hip pain and found out that she could not pull herself up on her own or bear weight on left leg with assistance from healthcare worker. Sat on a chair until EMS arrived. Denies head strike or loss of consciousness. No numbness or tingling in extremities. No lightheadedness/dizziness, or headache. Denies nausea, vomiting, abdominal pain. Fever or chills. Denies chest pain/pressure, palpitations. No shortness a breath or difficulty breathing. In the ED pt was mildly hypertensive at 140/62, vitals otherwise WNL. Labs were overall grossly unremarkable and around baseline for patient. No leukocytosis. Stable microcytic anemia of 9.9/33.5, around baseline. No significant abnormalities . Renal function baseline. X-ray of left hip showed transverse subcapital fracture of the left femur with varus angulation and lateral displacement. Left knee with small suprapatellar bursa effusion with moderate tricompartmental osteoarthritis, diffuse osteopenic, and diffuse calcific atherosclerosis. CXR showed unchanged mild cardiomegaly without radiographic signs of CHF, and persistent meeting size retrocardiac hiatal hernia. EKG demonstrated normal sinus rhythm with incomplete RBBB and T-wave inversions in V1, V2, and V3, but no evidence of significant ST elevations or depressions. Pt was treated with fentanyl 25 mcg IV. Pt will be admitted to the hospital for treatment and further evaluation of left hip fracture Hospital Course Patient admitted to general medical floor pain management/Lovenox for clot prevention. On 09/17/2023 patient underwent left hip hemiarthroplasty without issue. Her postoperative period was essentially unremarkable. She did demonstrate some urinary retention and was catheterized. She failed a voiding trial and will be DC with [facility]; facility can facilitate voiding trial when appropriate. At this point in time she is medically acceptable to transfer to short-term rehab Time Attestation Discharge Coordination Time (in mins): 35 Quality: Safe Use of Opioids Does Pt have an Active Cancer Diagnosis on the Problem List?: No Quality: Stroke Does the patient have a stroke diagnosis?: No Physical Exam Vital Signs: Vital Signs: Last Vital Signs Temp 97.6 F 09/19/23 08:19 Pulse 81 09/19/23 08:19 Resp 12 09/19/23 08:19 BP 114/58 L 09/19/23 08:19 Pulse Ox 95 09/19/23 08:19 O2 Del Method Room Air 09/19/23 08:19 O2 Flow Rate 2 09/18/23 00:00 BMI result Body Mass Index 22.4 Const: Other: Awake alert no acute distress Resp: Other: Clear to auscultation bilaterally no rales rhonchi or wheezes Cardio: Other: No S4; positive S1-S2; no S3 murmurs rubs or gallops GI: Other: Soft nontender nondistended normoactive bowel sounds Neuro: Other: Cranial nerves 2-12 grossly intact as tested motor 5/5 save affected extremity (left); sensation intact cognition appropriate Extrem: Other: No edema bilaterally DS: Data Data Completed and Pending Completed studies during hospitalization [Text1]: Procedures Introduction of Other Thrombolytic into Peripheral Vein, Percutaneous Approach (08/07/22) Transfusion of Nonautologous Red Blood Cells into Peripheral Vein, Percutaneous Approach (08/07/22) Pending studies at discharge: Pending at discharge 09/17/23 09:29 Surgical [PTH] Routine Labs on day of discharge: Laboratory Results - last 24 hr 09/18/23 09/18/23 09/19/23 15:37 19:25 07:42 POC Glucose 148 H 134 H 110 08/06/24 11:34 POC Glucose 129 H Discharge Plan Discharge Anticipated Discharge Date/Time: 09/19/23 12:53 Patient Disposition: Xfer Inpatient Rehab Fac Discharge Diagnosis: Left femoral neck fracture Referrals: Mahesh Lucero PA [Physician Geological Engineering Teacher] - 1 Week (10/04/23 at 1:30 ) Sangeetha Sage MD [Primary Care Provider] - 1 Week Discharge Medications: New oxycodone 5 mg Tablet 5 mg PO Q4H PRN (Reason: Pain, Moderate(Pain Scale 4-6)) Qty: 40 0RF Rx Instructions: Partial Fill upon patient request. Continued lisinopril 20 mg tablet 20 mg PO BEDTIME calcium carbonate [Oyster Shell Calcium] 500 mg calcium (1,250 mg) Tablet 500 mg PO BEDTIME tamsulosin 0.4 mg Capsule 0.4 mg PO DAILY Qty: 30 0RF clopidogrel [Plavix] 75 mg tablet 75 mg PO DAILY Qty: 30 0RF sennosides [senna] 8.6 mg Tablet 17.2 mg PO DAILY PRN (Reason: Constipation) cyanocobalamin (vitamin B-12) 1,000 mcg/mL Solution 1,000 mcg SUBCUT QMONTH polyethylene glycol 3350 17 gram/dose Powder 17 g PO DAILY hydrocortisone 2.5 % ointment 1 appl topical BID PRN (Reason: Rash Face/Neck) Rx Instructions: To face and neck as needed for flares clotrimazole 1 % cream 1 appl topical BID PRN (Reason: Rash Under Breast) atorvastatin 20 mg tablet 20 mg PO DAILY levothyroxine 88 mcg tablet 88 mcg PO DAILY@0600 omega-3 fatty acids 1,000 mg capsule 1,000 mg PO DAILY atenolol 50 mg tablet 50 mg PO BEDTIME aspirin [Adult Low Dose Aspirin] 81 mg tablet,delayed release (DR/EC) 81 mg PO BEDTIME docusate sodium 100 mg capsule 100 mg PO DAILY Discharge Orders: Discharge Order (Routine); Ordered 09/19/23 Ordered By: Ankur Garcia Diet: Advance to usual diet Activity on Discharge: As tolerated Stand Alone Forms: Patient Portal Discharge page Print Language: Puerto Rican Activity Restrictions/Additional Instructions: Physical Therapy for total hip arthroplasty: posterior precautions, gait training, ROM, strength Limit stair climbing No showering, no tub bath-keep dressing clean, dry and intact No driving x6 weeks Resume Plavix Follow up with [facility] in 2 weeks Care Plan Goals: Resume meds as per transfer sheet Health Concerns: Oxycodone as needed for pain Plan of Treatment: As per receiving facility Assessment: See discharge summary
== END 2023-09-19 14:37 | DRG 522 ==
LOC: HO.ED 14:57 → HO.EDOVER 15:28 → HO.S3 17:23
PROVIDERS: Orthopaedic Surgery; Registered Nurse Emergency; Admitting Provider Student in an Organized Health Care Education/Training Program; Emergency Provider Student in an Organized Health Care Education/Training Program; PCP Internal Medicine; Visit Provider Hospitalist
PROC: (CPT 27125; principal; 2023-09-17 08:00)
DX: S72.012A Unspecified intracapsular fracture of left femur, initial encounter for closed fracture (principal); E03.9 Hypothyroidism, unspecified; R33.9 Retention of urine, unspecified; I11.9 Hypertensive heart disease without heart failure; E11.9 Type 2 diabetes mellitus without complications; Z66 Do not resuscitate; D50.9 Iron deficiency anemia, unspecified; K44.9 Diaphragmatic hernia without obstruction or gangrene; W19.XXXA Unspecified fall, initial encounter; Z87.891 Personal history of nicotine dependence; Z86.73 Personal history of transient ischemic attack (TIA), and cerebral infarction without residual deficits; Z79.02 Long term (current) use of antithrombotics/antiplatelets; Z79.82 Long term (current) use of aspirin; Z79.890 Hormone replacement therapy; Z79.899 Other long term (current) drug therapy
CPT/HCPCS: 36415; 71045; 72170; 73502; 73562; 80053; 81001; 82947; 85025; 86850; 86900; 86901; 87086; 88305; 88311; 93005; 97110; 97162; 97166; 97530; 99285; C1758; C1776; J0131; J0690; J1170; J1650; J2270; J2371; J2405; J2704; J2795; J3010; J7120

== ENCOUNTER → 2023-09-15 12:16 | Outpatient (BNV) | payer MEDICARE, MEDICAID, SELFPAY | PROVIDERS: Emergency Provider Student in an Organized Health Care Education/Training Program; PCP Internal Medicine; Visit Provider Physician Assistant | DX: S72.002A Fracture of unspecified part of neck of left femur, initial encounter for closed fracture (principal); M17.31 Unilateral post-traumatic osteoarthritis, right knee | CPT/HCPCS: 27236; 99024; 99223 ==

== ENCOUNTER → 2023-09-15 12:30 | Outpatient (BNV) | payer MEDICARE, MEDICAID, SELFPAY | PROVIDERS: Admitting Provider Student in an Organized Health Care Education/Training Program; Emergency Provider Student in an Organized Health Care Education/Training Program; PCP Internal Medicine; Visit Provider Internal Medicine Cardiovascular Disease | DX: R94.31 Abnormal electrocardiogram [ECG] [EKG] (principal) | CPT/HCPCS: 93010 ==

== ENCOUNTER → 2023-09-15 15:05 | Outpatient (BNV) | payer MEDICARE, MEDICAID, SELFPAY | PROVIDERS: Admitting Provider Student in an Organized Health Care Education/Training Program; Emergency Provider Student in an Organized Health Care Education/Training Program; PCP Internal Medicine; Visit Provider Student in an Organized Health Care Education/Training Program | DX: S72.002A Fracture of unspecified part of neck of left femur, initial encounter for closed fracture (principal); E11.9 Type 2 diabetes mellitus without complications | CPT/HCPCS: 99223; 99232; 99239 ==

== ENCOUNTER 2023-09-20 13:58 | Observation (INO) | payer MEDICARE, MEDICAID, SELFPAY ==
[2023-09-20] VITALS (17 sets, daily range): BP systolic 105–132; BP diastolic 54–71; PULSE 72–87; RESP 15–20; TEMP 36.7–37.2; O2SAT 97–100; BMI 24.3
--- NOTE | ~2023-09-20 | CT_ITS ---
EXAMINATION: CT HIP WITH CONTRAST, LEFT CLINICAL INFORMATION: Anemic status post surgery COMPARISON: 09/17/2023 TECHNIQUE: CT scan of the left hip following 85 mL injection of Omnipaque 350. Multiplanar reconstructions. This CT examination was performed using dose optimization techniques as appropriate, variously including the following: *Automated exposure control *Adjustment of mA and/or kV according to patient size (this includes techniques or standardized protocols for targeted exams where dose is matched to indication/reason for exam; i.e. extremities or head) *Use of iterative reconstruction technique DLP: 197 mGy-cm FINDINGS: Recent postoperative changes consistent with left hip arthroplasty noted. Prosthesis appears satisfactory. No evidence for any hardware failure. Old healed left-sided superior and inferior pubic rami fractures noted with solid bony union. There is soft tissue air and prominence consistent with recent postoperative changes. Small areas of increased attenuation noted consistent with relatively small blood products. No expanding hematoma or pseudoaneurysm demonstrated. No signs of active extravasation of contrast. Skin sebastián noted. Of note is a large cystic lesion within the left pelvis measuring up to 9.1 cm which is presumed to be ovarian. Pelvic ultrasound were recommended. Please note a similar lesion was present on the 05/21/[address]/CT hip LT w IV con IMPRESSION: 1. Expected postoperative changes as above. No evidence for any pseudoaneurysm or active extravasation of contrast. 2. Large cystic lesion within the left pelvis as above. Pelvic ultrasound recommended.
--- NOTE | 2023-09-20 14:17 | PC.NURSE ---
H+H = 6.7 + 23.2 per [facility] paperwork.
--- NOTE | 2023-09-20 14:17 | PC.NURSE ---
Pt. settled into ED room 4. Call light within reach
--- NOTE | 2023-09-20 14:20 | ECG_ITS ---
Test Reason : WEAKNESS Blood Pressure : / mmHG Vent. Rate : 075 BPM Atrial Rate : 075 BPM P-R Int : 160 ms QRS Dur : 116 ms QT Int : 408 ms P-R-T Axes : 064 -10 -37 degrees QTc Int : 455 ms Normal sinus rhythm Left ventricular hypertrophy with QRS widening ( R in aVL , Pettus product ) ST & T wave abnormality, consider anterior ischemia Abnormal ECG When compared with ECG of 15-SEP-2023 13:15, Incomplete right bundle branch block is no longer Present Referred By: Mamie Hwang Electronically Signed By:RODOLFO ACOSTA MD
--- OUTSIDE RECORDS SUMMARY | 2023-09-20 14:25 | XMS_ITS | Continuity of Care Document ---
Author Organization [facility] ter Address [address] [place] [id number]- Care Team Providers Care Signal Tester Name Role Phone Sangeetha Sage MD Primary Care Physician [phone] Encounter [facility] [place] Date(s): 09/27/22 - 09/29/[address] [id number] Encounter Diagnosis TIA (transient ischemic attack)(Final) - 09/28/22 Discharge Disposition: A-D/C Home Attending Physician: Sugar Mckeon MD Admitting Physician: Arcelia Coelho MD Referring Physician: Not on Staff, Referring MD Allergies, Adverse Reactions, Alerts Substance Reaction Severity Status metformin rash Active Darvon swelling Active Medications Acetaminophen Tablet 650 mg, Tablet, By Mouth, Every 4 hours, PRN for Pain , Mild, Temperature Greater than 100.5, Routine, 09/27/22 11:52:00 EDT Start Date: 09/27/22 Stop Date: 09/30/22 Status: Discontinued Aspirin 81, mg, By Mouth, Daily, 0, 0, 09/30/07 16:30:11, Print SVETLANA Number, [id number], Constant Indicator Start Date: 09/30/07 Status: Ordered Atenolol Tablet 50 mg, Tablet, By Mouth, 09/29/22 9:00:00 EDT Start Date: 09/29/22 Stop Date: 09/29/22 Status: Completed Atenolol Tablet 50 mg, By Mouth, Daily, Refills 0, Tot. Refills 0, 09/30/07 16:30:25 EDT Start Date: 09/30/07 Status: Ordered atorvastatin 20 mg oral tablet 1 tablet = 20 mg, By Mouth, Daily, 0 Refills, Maintenance Start Date: 07/07/17 Status: Ordered Clotrimazole 1% Topical 1 application, Topically, 2 times a day, PRN Itch, under breast., 0 Refills, Maintenance, Cream Start Date: 09/29/22 Status: Ordered Colace sodium 100 mg oral capsule 100 mg, 1, capsule, By Mouth, Daily, # 20 capsule, Refills 0, Maintenance, 09/27/22 13:43:00 EDT, Partial fill upon patient request if the prescription is for a schedule II opioid drug. Start Date: 09/27/22 Status: Ordered Fish Oil = 1,000 mg, By Mouth, Daily at bedtime, 0 Refills, Maintenance, 07/07/17 9:26:58 EDT Start Date: 07/07/17 Status: Ordered Fosamax 70 mg oral tablet 1 tablet = 70 mg, By Mouth, Every 7 days, 0 Refills, Maintenance, 07/07/17 9:29:02 EDT Start Date: 07/07/17 Status: Ordered HydroCORTisone 2.5% Topical 1 application, Topically, 2 times a day, PRN Itch, on face and neck, 0 Refills, Maintenance, Cream Start Date: 09/29/22 Status: Ordered levothyroxine 0.088 mg oral tablet 1 tablet = 88 mcg, By Mouth, Daily, 0 Refills, Maintenance, 07/07/17 9:32:56 EDT Start Date: 07/07/17 Status: Ordered lisinopril 20 mg oral tablet 20 mg, Tablet, By Mouth, 09/29/22 9:00:00 EDT Start Date: 09/29/22 Stop Date: 09/29/22 Status: Completed lisinopril 20 mg oral tablet 20 mg, 1, tablet, By Mouth, Daily, # 30 tablet, Refills 0, Maintenance, 09/27/22 13:42:00 EDT, Partial fill upon patient request if the prescription is for a schedule II opioid drug. Start Date: 09/27/22 Status: Ordered MiraLax oral powder for reconstitution = 17 Gm, By Mouth, Daily, dissolve in water before taking, # 255 Gm, 0 Refills, Maintenance, 09/29/22 13:55:00 EDT, REC Powder, Partial fill upon patient request if the prescription is for a scheduleII opioid drug. Start Date: 09/29/22 Status: Ordered Oysco 500 with D 500 mg-200 intl units oral tablet 1 tablet, By Mouth, Daily, 0 Refills, Maintenance, 09/29/22 13:56:00 EDT, Partial fill upon patientrequest if the prescription is for a schedule II opioid drug. Start Date: 09/29/22 Status: Ordered Plavix 75 mg oral tablet 75 mg, 1, tablet, By Mouth, Daily, # 30 tablet, Refills 5, Maintenance, 09/27/22 13:42:00 EDT, Partial fill upon patient request if the prescription is for a schedule II opioid drug. Start Date: 09/27/22 Status: Ordered Senokot 187 mg oral tablet 2 tablet = 17.2 mg, By Mouth, Daily at bedtime, PRN for constipation, start if you start percocet, # 20 tablet, 0 Refills, Maintenance, 03/17/17 13:01:23, Tablet Start Date: 03/17/17 Status: Ordered tamsulosin 0.4 mg oral capsule 0.4 mg, 1, capsule, By Mouth, Daily, # 30 capsule, Refills 0, Maintenance, 09/27/22 13:45:00 EDT, Partial fill upon patient request if the prescription is for a schedule II opioid drug. Start Date: 09/27/22 Status: Ordered Vitamin B-12 Inj 0 Refills, Maintenance, 04/04/22 8:03:00 EST, Partial fill upon patient request if the prescriptionis for a schedule II opioid drug. Start Date: 04/04/22 Status: Ordered Vitamin D3 2000 intl units oral capsule 1 capsule = 50 mcg, By Mouth, Daily, # 60 capsule, 0 Refills, Maintenance, 09/27/22 13:43:00 EDT, Capsule, Partial fill upon patient request if the prescription is for a schedule II opioid drug. Start Date: 09/27/22 Status: Ordered Problem List Condition Confirmation Course Effective Dates Status Health Status Informant Eddy palsy Confirmed Active Constipation Confirmed Active Depression Confirmed Active Diabetes mellitus type 2 Confirmed Active Gastritis Confirmed Active GERD - Gastro-esophageal reflux disease Confirmed Active Hypercholesterolemia Confirmed Active Hypertension Confirmed Active Hypothyroid Confirmed Active Irritable bowel Confirmed Active Osteoporosis Confirmed Active Ovarian mass Confirmed Active Stroke Confirmed Active Thyroid nodule Confirmed Active Results Orders for Microbiology Reports Name Date Urine Culture (URINE CULTURE) 09/27/22 Microbiology Reports TEST:Urine Culture STATUS:Auth (Verified) BODY SITE: SOURCE:URINE COLLECTED DATE/TIME:09/27/22 11:06 AM Urine Culture SPECIMEN DESCRIPTION : URINE SPECIAL REQUESTS : NONE CULTURE : NO GROWTH REPORT STATUS : FINAL 09/28/2022 Radiology Reports * Exam Date Time Procedure Performing Provider Status 09/28/22 11:01 PM MRI Brain W/O Contrast Chrystal Murcia; Rianna (Verified) Notes: (MRI Brain W/O Contrast) Reason For Exam: Aphasia RESULT: MRI Brain W/O Contrast MRI Brain W/O Contrast INDICATION: Reason: Aphasia; Clinical Question(s): Infarction; Order Comment: Please see Reference Text for complete list of contraindications Infarction TECHNIQUE: MRI of the brain was performed without contrast utilizing sagittal T1, axial T2, axial FLAIR, axial SWAN, and axial DWI sequences. COMPARISON: Head CT 09/27/2022. FINDINGS: BRAIN and EXTRA-AXIAL SPACES: The ventricles and sulci are mildly prominent reflecting volume loss.Patchy and confluent regions of nonspecific FLAIR hyperintensity are present throughout the subcortical, deep, and periventricular white matter, and there are chronic lacunar infarcts in the right frontal periventricular white matter involving the adjacent right caudate nucleus body as well as the right lentiform nucleus. There are chronic lacunar infarcts in the left thalamus and right cerebellar hemisphere. There is no evidence of restricted diffusion to suggest acute infarction. There is no hemorrhage, midline shift, or mass effect. There is no extra-axial collection. Flow voids are preserved in the dominant intracranial vessels. EXTRACRANIAL SOFT TISSUES: There have been lens replacements bilaterally. Paranasal sinuses and mastoids are unremarkable. BONES: Marrow signal is preserved. IMPRESSION: 1. No acute/subacute infarct, mass, hemorrhage, or other acute intracranial abnormality. 2. Chronic lacunar infarcts involving the right frontal periventricular white matter, right basal ganglia, left thalamus, and right cerebellum. Moderate T2/FLAIR hyperintense foci in the white matter, nonspecific but most likely reflecting chronic small vessel disease. WSN: [id number] Ordering Physician: Jose Raul Lema Dictated By: Kortney Cage MD Dictated Date/Time: 09/29/22 8:40 am Reviewed By: Kortney Cage MD Signed By: Kortney Cage MD Signed Date/Time: 09/29/22 8:40 am Transcribed By: DAYO Transcribed Date/Time: 09/29/22 8:34 am * Exam Date Time Procedure Performing Provider Status 09/27/22 11:16 AM Chest 2 Views Frontal and Lat Yolanda Shah; Auth (Verified) Notes: (Chest 2 Views Frontal and Lat) Reason For Exam: Stroke;Other: RESULT: Chest 2 Views Frontal and Lat Examination: Chest performed on 09/27/2022. History: Headache. Stroke. Findings: Frontal and lateral views of the chest are compared to a prior study dated 04/05/2004. The cardiac and mediastinal silhouettes are within normal limits. The lungs are clear. Deformity ofthe right humerus is consistent with prior trauma. Impression: There is no acute cardiopulmonary disease. WSN: [id number] Ordering Physician: Jacques Guido Dictated By: Ericka Wallace MD Dictated Date/Time: 09/27/22 12:32 p Reviewed By: Ericka Wallace MD Signed By: Ericka Wallace MD Signed Date/Time: 09/27/22 12:32 pm Transcribed By: DAYO Transcribed Date/Time: 09/27/22 12:32 pm * Exam Date Time Procedure Performing Provider Status 09/27/22 9:[address] Head-Hyper Acute Stroke Tracy Aldridge; Auth (Verified) Notes: (CT Head-Hyper Acute Stroke) Reason For Exam: L sided weakness, dizzy, Haas;Other: RESULT: CT Head-Hyper Acute Stroke CT Head-Hyper Acute Stroke INDICATION: Reason: Other:; L sided weakness, dizzy, Haas; Clinical Question(s): Other:; Hematoma Infarction TECHNIQUE: Noncontrast head CT using axial technique and reconstructed in axial and coronal planes.Iterative reconstruction techniques are used to optimize dose and image quality. COMPARISON: 05/07/2012 FINDINGS: The sinuses are free from disease. The ventricular system and subarachnoid spaces are within normal limits. A moderate degree of periventricular and deep subcortical white matter low- attenuation is noted, progressed from the prior study. This is consistent with chronic small vessel ischemic change. There is no intracranial hemorrhage, mass effect, or midline shift. No intra or extra-axial fluid collections are identified. The osseous structures are intact. IMPRESSION: There is no acute intracranial abnormality. WSN: [id number] Ordering Physician: Jacques Guido Dictated By: Ericka Wallace MD Dictated Date/Time: 09/27/22 9:44 am Reviewed By: Ericka Wallace MD Signed By: Ericka Wallace MD Signed Date/Time: 09/27/22 9:44 am Transcribed By: DAYO Transcribed Date/Time: 09/27/22 9:42 am * Exam Date Time Procedure Performing Provider Status 09/27/22 9:[address] Angio Neck Hypera cute Stroke Tracy Georges; Auth (Verified) Notes: (CT Angio Neck Hyperacute Stroke) Reason For Exam: L sided weakness, dizzy, Haas;Other: RESULT: CT Angio Neck Hyperacute Stroke CT Angio Head Hyperacute Stroke, CT Angio Neck Hyperacute Stroke Reason: Other:; L sided weakness, dizzy, Haas; Clinical Question(s): Other:; Hematoma Aneurysm / Other: TECHNIQUE: CT angiogram of the head and neck was performed after bolus administration of intravenous contrast. 100 mL of Omnipaque 300 was administered intravenously. Coronal and sagittal MIP reformatted images were obtained. Additional 3-D images were created on a separate workstation under concurrent supervision by the attending radiologist. All stenoses are measured using NASCET criteria. Weight-based protocol using automatic tube modulation was used to optimize exposure parameters. RADIATION DOSE PARAMETERS: CTDIvol Body: 11.67 mGy, DLP Body: 286 mGy*cm. CTDIvol Head: 46.60 mGy, DLP Head: 772 mGy*cm. COMPARISON: Noncontrast CT head performed concurrently. FINDINGS: CTA OF THE NECK: Arch: There is a three vessel aortic arch. There is mild atherosclerotic plaque of the aortic arch,but origins of the supra aortic vessels are patent. Right carotid system: The common carotid and cervical internal carotid arteries are patent. There is calcified atherosclerotic plaque at the carotid bifurcation, but no ICA stenosis (0%) by NASCET criteria. There is no dissection or aneurysm. Left carotid system: The common carotid and cervical internal carotid arteries are patent. There iscalcified atherosclerotic plaque at the carotid bifurcation, but no ICA stenosis (0%) by NASCET criteria. There is no dissection or aneurysm. There is a right-dominant vertebral artery system. Right vertebral: No significant stenosis. No evidence of dissection or aneurysm. Left vertebral: No significant stenosis. No evidence of dissection or aneurysm. Other: Soft tissues and bones: No evidence of lymphadenopathy or mass. Multiple thyroid nodules, largest arim calcified nodule measuring 1.9 cm on the left. Visualized lungs are blurred by motion artifact,without significant superimposed airspace opacity. Multilevel degenerative changes of the spine arenoted, without acute osseous abnormality. CTA OF THE HEAD: Anterior circulation: Bilateral intracranial ICAs demonstrate atherosclerotic calcification, without stenosis. Bilateral GIOVANNA and MCA branches are patent. There is no significant stenosis, proximal cutoff, aneurysm, or vascular malformation. Posterior circulation: Bilateral intracranial vertebral arteries, the basilar artery, and bilateralsuperior cerebellar and posterior cerebral branches are patent, with no proximal cutoff. There is contribution to the left BARREL STRAIGHTENER with mildly hypoplastic left P1 segment. There is moderate narrowing of the right BARREL STRAIGHTENER in the P3 segment, without occlusion.. There is otherwise no high- grade stenosis. There is no evidence of aneurysm or vascular malformation. Veins: Major dural venous sinuses are patent. Other: Soft tissues and bones: No midline shift or effacement of the basal cisterns. No space-occupying hemorrhage. No territorial loss of oviedo-white matter differentiation. There have been lens extractions bilaterally. No significant opacification in the paranasal sinusesor mastoid air cells. IMPRESSION: 1. No proximal occlusion or high grade stenosis in the major arteries of the head and neck. 2. Moderate right BARREL STRAIGHTENER P3 segment stenosis. 3. Thyroid nodules measuring up to 1.8 cm on the left. Consider nonemergent follow-up thyroid ultrasound for further characterization. WSN: [id number] Ordering Physician: Jacques Guido Dictated By: Soledad Young MD Dictated Date/Time: 09/27/22 6:02 pm Reviewed By: Soledad Young MD Signed By: Soledad Young MD Signed Date/Time: 09/27/22 6:02 pm Transcribed By: DAYO Transcribed Date/Time: 09/27/22 9:49 am * Exam Date Time Procedure Performing Provider Status 09/27/22 9:[address] Angio Head Hypera cute Stroke Tracy Georges; Auth (Verified) Notes: (CT Angio Head Hyperacute Stroke) Reason For Exam: L sided weakness, dizzy, Haas;Other: RESULT: CT Angio Head Hyperacute Stroke CT Angio Head Hyperacute Stroke, CT Angio Neck Hyperacute Stroke Reason: Other:; L sided weakness, dizzy, Haas; Clinical Question(s): Other:; Hematoma Aneurysm / Other: TECHNIQUE: CT angiogram of the head and neck was performed after bolus administration of intravenous contrast. 100 mL of Omnipaque 300 was administered intravenously. Coronal and sagittal MIP reformatted images were obtained. Additional 3-D images were created on a separate workstation under concurrent supervision by the attending radiologist. All stenoses are measured using NASCET criteria. Weight-based protocol using automatic tube modulation was used to optimize exposure parameters. RADIATION DOSE PARAMETERS: CTDIvol Body: 11.67 mGy, DLP Body: 286 mGy*cm. CTDIvol Head: 46.60 mGy, DLP Head: 772 mGy*cm. COMPARISON: Noncontrast CT head performed concurrently. FINDINGS: CTA OF THE NECK: Arch: There is a three vessel aortic arch. There is mild atherosclerotic plaque of the aortic arch,but origins of the supra aortic vessels are patent. Right carotid system: The common carotid and cervical internal carotid arteries are patent. There is calcified atherosclerotic plaque at the carotid bifurcation, but no ICA stenosis (0%) by NASCET criteria. There is no dissection or aneurysm. Left carotid system: The common carotid and cervical internal carotid arteries are patent. There iscalcified atherosclerotic plaque at the carotid bifurcation, but no ICA stenosis (0%) by NASCET criteria. There is no dissection or aneurysm. There is a right-dominant vertebral artery system. Right vertebral: No significant stenosis. No evidence of dissection or aneurysm. Left vertebral: No significant stenosis. No evidence of dissection or aneurysm. Other: Soft tissues and bones: No evidence of lymphadenopathy or mass. Multiple thyroid nodules, largest arim calcified nodule measuring 1.9 cm on the left. Visualized lungs are blurred by motion artifact,without significant superimposed airspace opacity. Multilevel degenerative changes of the spine arenoted, without acute osseous abnormality. CTA OF THE HEAD: Anterior circulation: Bilateral intracranial ICAs demonstrate atherosclerotic calcification, without stenosis. Bilateral GIOVANNA and MCA branches are patent. There is no significant stenosis, proximal cutoff, aneurysm, or vascular malformation. Posterior circulation: Bilateral intracranial vertebral arteries, the basilar artery, and bilateralsuperior cerebellar and posterior cerebral branches are patent, with no proximal cutoff. There is contribution to the left BARREL STRAIGHTENER with mildly hypoplastic left P1 segment. There is moderate narrowing of the right BARREL STRAIGHTENER in the P3 segment, without occlusion.. There is otherwise no high- grade stenosis. There is no evidence of aneurysm or vascular malformation. Veins: Major dural venous sinuses are patent. Other: Soft tissues and bones: No midline shift or effacement of the basal cisterns. No space-occupying hemorrhage. No territorial loss of oviedo-white matter differentiation. There have been lens extractions bilaterally. No significant opacification in the paranasal sinusesor mastoid air cells. IMPRESSION: 1. No proximal occlusion or high grade stenosis in the major arteries of the head and neck. 2. Moderate right BARREL STRAIGHTENER P3 segment stenosis. 3. Thyroid nodules measuring up to 1.8 cm on the left. Consider nonemergent follow-up thyroid ultrasound for further characterization. WSN: [id number] Ordering Physician: Jacques Guido Dictated By: Soledad Young MD Dictated Date/Time: 09/27/22 6:02 pm Reviewed By: Soledad Young MD Signed By: Soledad Young MD Signed Date/Time: 09/27/22 6:02 pm Transcribed By: DAYO Transcribed Date/Time: 09/27/22 9:49 am Vital Signs Most recent to oldest [Reference Range]: 1 2 3 Height 160 cm (09/29/22 10:34 AM) 160 cm (09/29/22 6:58 AM) 160 cm (09/29/22 4:33 AM) Weight 52.5 kg (09/27/22 3:11 PM) Oxygen Saturation [94-100 %] 99 % (09/29/22 10:34 AM) 99 % (09/29/22 6:58 AM) 100 % (09/29/22 4:33 AM) Pulse Rate [55-90 bpm] 60 bpm (09/29/22 10:34 AM) 68 bpm (09/29/22 7:14 AM) 68 bpm (09/29/22 6:58 AM) Body Mass Index [18.5-24.99 kg/m2] 20.51 kg/m2 (09/27/22 3:11 PM) Blood Pressure [90-138/55-84 mm Hg] 110/59mm Hg (09/29/22 10:34 AM) 114/65mm Hg (09/29/22 7:14 AM) 114/65mm Hg (09/29/22 7:14 AM) Respiratory Rate [16-30 br/min] 17 br/min (09/29/22 12:20 PM) 18 br/min (09/29/22 11:55 AM) 18 br/min (09/29/22 10:34 AM) Temperature [96.8-100.4 DegF] 98.2 DegF (09/29/22 10:34 AM) 97.6 DegF (09/29/22 6:58 AM) 97.7 DegF (09/29/22 4:33 AM) Mode of Delivery (Oxygen) Room air (09/29/22 10:34 AM) Room air (09/29/22 6:58 AM) Room air (09/29/22 4:33 AM) Blood pressure sites Arm, right (09/29/22 10:34 AM) Arm, left (09/29/22 6:58 AM) Arm, left (09/29/22 4:33 AM) Temperature Route Oral (09/29/22 10:34 AM) Oral (09/29/22 6:58 AM) Oral (09/29/22 4:33 AM) Dry Weight 52.5 kg (09/27/22 3:11 PM) Social History Social History Type Response Smoking Status Former smoker, quit more than 30 days ago entered on: 10/31/18 Sex History and physical note * Torey BELLO, Jose Raul Alan: PERFORM Event Display: History and Physical Hospital Authored Date: [id number] Patient: ??VALENTINO GARCIA ? Age:??77 Years?Sex:??Female?:??1945?? 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 She also reported??headache, dizziness, and??left- sided??tingling. ??No visual symptoms. ??She was in her usual state of health when she went to bed last night.?? She has not had recent fever or illness.?? No reported chest pain, shortness of breath, or palpitations.?? No fall or head trauma.?? No vomiting,??abdominal pain, diarrhea,??or urinary symptoms. ?? In the emergency room, the patient has been afebrile and hemodynamically stable.?No respiratory distress or hypoxia.?? She is in a normal sinus rhythm??on the monitor.?? Initial evaluation by neurology??revealed NIHSS score of 9, for expressive aphasia and pronator drift.?? Head CT was unremarkable and CT Angiogram did not reveal LVO or thrombus.?? By the time of my evaluation, the patientsaphasia has markedly improved and she has minimal drift on the right.?? Her NIHSS score is now downto 3. Review of Systems Other than those positives as noted in the HPI above, the remaining comprehensive 14-point review of systems is negative. Objective ? Vital Signs?? Temperature: 97.9 DegF (09/27/22 09:44:00) Temperature Route: Oral (09/27/22 09:44:00) Pulse Rate: 80 bpm (09/27/22 13:30:00) Respiratory Rate: 23 br/min (09/27/22 13:30:00) Systolic Blood Pressure: 133 mm Hg (09/27/22 13:30:00) Diastolic Blood Pressure: 83 mm Hg (09/27/22 13:30:00) Blood pressure sites: Arm, right (09/27/22 13:30:00) Mean Arterial Pressure: 119 mm Hg (09/27/22 09:44:00) Pulse Pressure: 50 mm Hg (09/27/22 13:30:00) Oxygen Saturation: 100 % (09/27/22 13:30:00) Mode of Delivery (Oxygen): Room air (09/27/22 13:30:00) Early Warning Score: 4 (09/27/22 13:34:03) ? Pain Scores?? No qualifying data available. ? Physical Exam General Appearance: Alert, appears stated age, pleasant, answers questions appropriately with mild dysarthria HEENT: Normocephalic, atraumatic, PERRL, EOMI, no scleral icterus, left facial palsy involving forehead as well (chronic Eddy's?), moist mucous membranes, no oropharynx lesions?? Neck: Supple, no JVD, no C-Spine tenderness, left thyroid nodule Cardiac: RRR, S1 & S2 present, no m / r / g appreciated Chest: Clear to auscultation bilaterally, no wheezing / ronchi / rales, no tenderness to percussion Abdomen: Soft, nontender, no distention, no rebound or guarding, no masses, normal bowel sounds in all quadrants Extremities: No clubbing, cyanosis, or edema. ??2+ distal pulses. 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 ?? Acute CVA (cerebrovascular accident) (I63.9):??The patient's neurologic exam is improving with NIHSS score 3 on my evaluation.??No new symptoms.??She remains afebrile and hemodynamically stable.??No respiratory distress or hypoxia.??Metabolic workup is unremarkable.??Head CT without acute hemorrhage or pathology.??CT Angio with no LVO or retrievable thrombus. 1. ??Admit to the medical floor, continuous EKG monitoring, neurochecks every 4 hours 2. ??MRI of the brain to evaluate for acute ischemia 3.?? Check ESR/CRP, TSH, and hemoglobin A1c 4. ??Continue aspirin 81 mg daily and Plavix 75 mg daily 5.?Continue atorvastatin 20 mg nightly, check lipid panel with goal LDL < 70 6. ??Permissive hypertension over the first 48 hours (SBP goal:??<200, hold antihypertensives while SBP within goal); plan to gradually lower to long-term goal <120/80 after initial 48 hours 7.?Neurology input appreciated, will follow up after above studies are resulted 8. ??PM&R evaluation 9.?? The patient has passed a nursing bedside swallow evaluatin and will be allowed to have a cardiac prudent diet ?? Pyuria (R82.81):??The patient has pyuria with no urinary symptoms at this time. No fever or leukocytosis. We will follow up urine culture and hold off abx for now. Continue Flomax for urine incontinence. ?? Diabetes mellitus type 2 (E11.9):??The patient abides by a diabetic diet.??No current meds or insulin. Blood sugar here 93-105. Check HgbA1C. ?? Hypertension (I10) Hypercholesterolemia (E78.00):??Blood pressure controlled. Renal function is stable. Permissive HTN for tonight as outlined. Resume atenolol and lisinopril in 24-48 hours. ?? Hypothyroid (E03.9) Thyroid nodule (E04.1):??Continue levothyroxine. Check TSH and free T4. Nonemergent outpatient thyroid US based on CT results. ?? VTE Prophylaxis:??Heparin SC 5000 units three times daily. ?VTE Prophylaxis Assessment:??VTE Prophylaxis Ordered ?? Code Status:??DNR/DNI, discussed with patient. ?Order Code Status:??Code Status Ordered ?? Discharge Planning:??Disposition pending PM&R evaluation; anticipate??2-3 days hospitalization. ?? I spent a total of??84 minutes today reviewing the chart / medical records, evaluating the patient,evaluating and interpreting laboratory and imaging data, formulating and discussing the treatment plan, and documenting the encounter. ? Histories Allergies Allergies ?(Active and Proposed Allergies Only) metformin? (Severity: Unknown severity, Onset: Unknown) ?Reactions: rash Darvon? (Severity: Unknown severity, Onset: Unknown) ?Reactions: swelling ? 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 Past Surgical History Repair recurrent incisional or ventral hernia; reducible SBO ? Social History Alcohol Details:??Use: Past. Employment/School Details:??Status: Retired. Exercise Details:??Self assessment: Fair condition. Home/Environment Details:??Living situation: Home/Independent. ??Lives with: Alone.?? Has child care daily. Nutrition/Health Details:??Diet: Regular. Sexual Details:??Sexually involved in last 6 months: No. Substance Abuse Details:??Use: Never. Tobacco Details:??Use: Former smoker, quit more than??10 years ago. ? Family History No??known family history (pt grew up in foster homes). ? Medications Home Medications Acetaminophen (Tylenol Tablet)?650?Milligram?By Mouth?Every 4 hours Alendronate (Fosamax 70 mg oral tablet)?1?tab(s)?70?Milligram?By Mouth?Every 28 days Aspirin?81?Milligram?By Mouth?Daily Atenolol (Atenolol Tablet)?50?Milligram?By Mouth?Daily Atorvastatin (atorvastatin 20 mg oral tablet)?1?tab(s)?20?Milligram?By Mouth?Daily Calcium Carbonate (Oysco 500)?By Mouth?Daily in AM Cholecalciferol (Vitamin D3 2000 intl units oral capsule)?1?capsule?50?Microgram?By Mouth?Daily Clopidogrel (Plavix 75 mg oral tablet)?75?Milligram?1?tablet?By Mouth?Daily Docusate (Colace sodium 100 mg oral capsule)?100?Milligram?1?capsule?By Mouth?Daily Levothyroxine (levothyroxine 0.088 mg oral tablet)?1?tab(s)?88?Microgram?By Mouth?Daily Lisinopril (lisinopril 20 mg oral tablet)?20?Milligram?1?tablet?By Mouth?Daily [place]-3 Polyunsaturated Fatty Acids (Fish Oil)?2000mgs?By Mouth?Daily at bedtime Senna (Senokot 187 mg oral tablet)?2?tab(s)?17.2?Milligram?By Mouth?Daily at bedtime?as needed?for constipation?start if you start percocet Tamsulosin (tamsulosin 0.4 mg oral capsule)?0.4?Milligram?1?capsule?By Mouth?Daily ? Results Recent Labs BLOOD BANK Blood Type A Positive ()?? 09/27/2022 09:24 Antibody Screen Negative ()?? 09/27/2022 09:24 ?? BLOOD COUNT & DIFF WBC 8.0 k/mm3 ()?? 09/27/2022 09:31 RBC 5.04 m/mm3 ()?? 09/27/2022 09:31 Hgb 12.1 Gm/dL ()?? 09/27/2022 09:31 Hct 39.1 % ()?? 09/27/2022 09:31 MCV 77.6 femtoliters (Low)?? 09/27/2022 09:31 MCH 24.0 pg (Low)?? 09/27/2022 09:31 MCHC 30.9 g/dL (Low)?? 09/27/2022 09:31 Platelet Count 242 k/mm3 ()?? 09/27/2022 09:31 RDW-SD 59.7 femtoliters (High)?? 09/27/2022 09:31 MPV 10.1 femtoliters ()?? 09/27/2022 09:31 Nucleated RBC (Automated) 0.0 #/100 WBC'S ()?? 09/27/2022 09:31 Abs. NRBC 0.0 k/mm3 ()?? 09/27/2022 09:31 Abs. Neut 6.0 k/mm3 ()?? 09/27/2022 09:31 Abs. Lymph 1.3 k/mm3 ()?? 09/27/2022 09:31 Abs. [place] 0.5 k/mm3 ()?? 09/27/2022 09:31 Abs. Eo 0.2 k/mm3 ()?? 09/27/2022 09:31 Abs. Baso 0.0 k/mm3 ()?? 09/27/2022 09:31 Neut % 74.7 % ()?? 09/27/2022 09:31 Lymph % 16.1 % ()?? 09/27/2022 09:31 [place] % 6.1 % ()?? 09/27/2022 09:31 Eos % 2.9 % ()?? 09/27/2022 09:31 Baso % 0.1 % ()?? 09/27/2022 09:31 Imm Gran 0.1 % ()?? 09/27/2022 09:31 Abs. Imm Gran 0.0 k/mm3 ()?? 09/27/2022 09:31 ?? CARDIAC High Sensitivity Troponin (HSTnT) 12 ng/L ()?? 09/27/2022 09:31 ?? CHEM GENERAL Sodium 140 mmol/L ()?? 09/27/2022 09:31 Potassium 4.1 mmol/L ()?? 09/27/2022 09:31 Chloride 105 mmol/L ()?? 09/27/2022 09:31 Bicarbonate Level 23 mmol/L ()?? 09/27/2022 09:31 Anion Gap 12 ()?? 09/27/2022 09:31 Glucose Level 93 mg/dL ()?? 09/27/2022 09:31 Glucose, POC 105 mg/dL (High)?? 09/27/2022 09:22 BUN 13 mg/dL ()?? 09/27/2022 09:31 Creatinine-Blood 0.5 mg/dL ()?? 09/27/2022 09:31 Estimated GFR Creatinine 98 ML/MIN/1.73 M2 ()?? 09/27/2022 09:31 Calcium 9.5 mg/dL ()?? 09/27/2022 09:31 AST (SGOT) 23 units/L ()?? 09/27/2022 09:31 ?? COAG INR 1.0 ()?? 09/27/2022 11:52 Protime (PT) 10.3 seconds ()?? 09/27/2022 11:52 APTT <22.0 seconds (Low)?? 09/27/2022 11:52 ?? UA/URINALYSIS Appear/Color, Urine LIGHT YELLOW ()?? 09/27/2022 11:06 Specific [place], Urine 1.035 (High)?? 09/27/2022 11:06 pH, Urine 6.5 ()?? 09/27/2022 11:06 Albumin, Urine NEGATIVE ()?? 09/27/2022 11:06 Glucose, Urine NEGATIVE ()?? 09/27/2022 11:06 Ketones, Urine NEGATIVE ()?? 09/27/2022 11:06 Bilirubin, Urine NEGATIVE ()?? 09/27/2022 11:06 Hemoglobin, Urine NEGATIVE ()?? 09/27/2022 11:06 Nitrite, Urine NEGATIVE ()?? 09/27/2022 11:06 Leukocyte, Urine 3+ (Abnormal)?? 09/27/2022 11:06 Urobilinogen NORMAL mg/dL ()?? 09/27/2022 11:06 WBC's, Urine 65 /HPF (High)?? 09/27/2022 11:06 RBC's, Urine 2 /HPF ()?? 09/27/2022 11:06 Bacteria MODERATE HPF (Abnormal)?? 09/27/2022 11:06 Squamous Epith 6 /HPF ()?? 09/27/2022 11:06 Transitional Epith <1 /HPF ()?? 09/27/2022 11:06 Hold Urine Culture Testing available 48 hours from time of collection. ()?? 09/27/2022 11:06 ?? VIROLOGY COVID-19 by RT-PCR NEGATIVE ()?? 09/27/2022 11:06 ? Imaging(s) ?Chest 2 Views Frontal and Lat ?? 09/27/2022 11:16??by Ericka Wallace MD ?Impression: There is no acute cardiopulmonary disease. ?ECG 12-Lead ?? 09/27/2022 09:45??by Iván Jenkins MD ?Ventricular Rate: 82 BPM Atrial Rate: 82 BPM P-R Interval: 168 ms QRS Duration: 120 ms Q-T Interval: 402 ms QTC Calculation(Bazett): 469 ms P [place]: 24 degrees R [place]: -17 degrees T [place]: -27 degrees Normal sinus rhythm Right bundle branch block Left ventricular hypertrophy with repolarization abnormality ( R in aVL ) Abnormal ECG When compared with ECG of 01-OCT-2007 07:10, Right bundle branch block is now Present Confirmed by IVÁN JENKINS ([id number]) on 09/27/2022 9:51:50 AM ?CT Head-Hyper Acute Stroke ?? 09/27/2022 09:37??by Ericka Wallace MD ?IMPRESSION: There is no acute intracranial abnormality. ?Other Image ?CT Angio Head / Neck: IMPRESSION:?? 1. No proximal occlusion or high grade stenosis in the major arteries of the head and neck. 2. Moderate right BARREL STRAIGHTENER P3 segment stenosis. 3. Thyroid nodules measuring up to 1.8 cm on the left. Consider nonemergent follow-up thyroid ultrasound for further characterization. ? EKG study * Event Display: EKG Authored Date: * Event Display: ECG 12-Lead Authored Date: Please click on pdf link to open report * Event Display: ECG 12-Lead Authored Date: Ventricular Rate: 82 BPM Atrial Rate: 82 BPM P-R Interval: 168 ms QRS Duration: 120 ms Q-T Interval: 402 ms QTC Calculation(Bazett): 469 ms P [place]: 24 degrees R [place]: -17 degrees T [place]: -27 degrees Normal sinus rhythm Right bundle branch block Left ventricular hypertrophy with repolarization abnormality ( R in aVL ) Abnormal ECG When compared with ECG of 01-OCT-2007 07:10, Right bundle branch block is now Present Confirmed by IVÁN JENKINS ([id number]) on 09/27/2022 9:51:50 AM [place]: IVÁN JENKINS [facility] Progress note * Ilsa Harden LPN: PERFORM, SIGN, VERIFY Event Display: Progress Note Hospital Authored Date: [id number] Patient: VALENTINO GARCIA Age: 77 years Sex: Female : 1945 Associated Diagnoses: None Author: Ilsa Harden LPN Ms Goins slept through most of the night. MRI transport came for her after 10pm and she returned around 11pm. c/o 8-9/10 pain. Tylenol did not help, promotion producer was paged. Oxycodone 5mg one time dose was ordered, given and had positive effect. She c/o leg pain, chest pain and HAAS. LCTA, w/slight expiratory wheeze. No c/o SOB, no cough, no distress, +BS x4 quads, no edema, alert and oriented x4. Her hives appear, she's been getting Benadryl as needed. Fall risk precautions in place, allergy band on,call eddy w/in reach, eating and drinking w/no issues. Discharge Information Case Management Discharge Plan : Case Management Discharge Plan Data 09/28/2022 13:03 EDT Discharge Level of Care at Discharge Homehealth/VNA Discharge VNA/Hospice/Home Care [facility] [phone] Name of Agency #1 [facility] Categories #1 Physical Therapy, Assisted Service Comments #1 [facility] will resume services at time of discharge. they will reach out to you to set up times for homecare visits. Rehabilitation Discharge : Rehab Discharge Index 09/28/2022 8:20 EDT Comments on treatment indicated Pt demonstrated safe mobility with RW. Pt educated on recommendation to use walker. Rec home PT services, discussed with caser in Walker: distance >50 Full chart review completed Yes Hospital course Head CT was unremarkable and CT Angiogram did not reveal LVO or thrombus. By the time of my evaluation, the patients aphasia has markedly improved and she has minimal drift on the right. * Anne ArundelBurton HUMPHRIES, Chucho Hewitt: PERFORM Event Display: Progress Note Hospital Authored Date: Patient: ??VALENTINO GARCIA ? Age:??77 Years?Sex:??Female?:??1945?? Subjective interim hx feeling better ?? Review of Systems Allergies Allergies ?(Active and Proposed Allergies Only) metformin? (Severity: Unknown severity, Onset: Unknown) ?Reactions: rash Darvon? (Severity: Unknown severity, Onset: Unknown) ?Reactions: swelling ? Objective Vital Signs?? Temperature: 98 DegF (09/28/22 11:00:00) Temperature Route: Oral (09/28/22 11:00:00) Pulse Rate: 67 bpm (09/28/22 11:00:00) Respiratory Rate: 20 br/min (09/28/22 11:00:00) Systolic Blood Pressure:??147 mm Hg??High (09/28/22 11:00:00) Diastolic Blood Pressure: 80 mm Hg (09/28/22 11:00:00) Blood pressure sites: Arm, right (09/28/22 11:00:00) Mean Arterial Pressure: 82 mm Hg (09/28/22 03:05:00) Pulse Pressure: 67 mm Hg (09/28/22 11:00:00) Oxygen Saturation: 99 % (09/28/22 11:00:00) Mode of Delivery (Oxygen): Room air (09/28/22 11:00:00) Early Warning Score: 0 (09/28/22 11:04:42) ? Physical Exam Neuro: able to name, oriented to place month, able to follow commands Cranial Nerves: PERRL, EOMI without nystagmus, +BTT b/l. R FD. Motor: RUE 4/5 w/o drift, LUE 5/5. BLE 5/5. R sided abnormal movements, appearance like TD. Sensation: Intact light touch sensation bilaterally. Coordination: No ataxia or dysmetria noted with finger to nose.?? _ Home Medications Acetaminophen (Tylenol Tablet)?650?Milligram?By Mouth?Every 4 hours Alendronate (Fosamax 70 mg oral tablet)?1?tab(s)?70?Milligram?By Mouth?Every 28 days Aspirin?81?Milligram?By Mouth?Daily Atenolol (Atenolol Tablet)?50?Milligram?By Mouth?Daily Atorvastatin (atorvastatin 20 mg oral tablet)?1?tab(s)?20?Milligram?By Mouth?Daily Calcium Carbonate (Oysco 500)?By Mouth?Daily in AM Cholecalciferol (Vitamin D3 2000 intl units oral capsule)?1?capsule?50?Microgram?By Mouth?Daily Clopidogrel (Plavix 75 mg oral tablet)?75?Milligram?1?tablet?By Mouth?Daily Docusate (Colace sodium 100 mg oral capsule)?100?Milligram?1?capsule?By Mouth?Daily Levothyroxine (levothyroxine 0.088 mg oral tablet)?1?tab(s)?88?Microgram?By Mouth?Daily Lisinopril (lisinopril 20 mg oral tablet)?20?Milligram?1?tablet?By Mouth?Daily [place]-3 Polyunsaturated Fatty Acids (Fish Oil)?2000mgs?By Mouth?Daily at bedtime Senna (Senokot 187 mg oral tablet)?2?tab(s)?17.2?Milligram?By Mouth?Daily at bedtime?as needed?for constipation?start if you start percocet Tamsulosin (tamsulosin 0.4 mg oral capsule)?0.4?Milligram?1?capsule?By Mouth?Daily ? Inpatient Medications Medications (15) Active SCHEDULED: (10) Aspirin 81 mg EC Tablet (aspirin 81 mg oral delayed release tablet) ??81 mg, By Mouth, Daily Atenolol 50 mg Tablet (Atenolol Tablet) ??50 mg, By Mouth, Daily Atorvastatin 20 mg Tablet (atorvastatin 20 mg oral tablet) ??20 mg, By Mouth, Daily Clopidogrel 75 mg Tablet (Plavix 75 mg oral tablet) ??75 mg, By Mouth, Daily Docusate Sodium 100 mg Capsule (Colace sodium 100 mg oral capsule) ??100 mg 1 capsule, By Mouth, Daily Heparin 5000 units/mL Inj (1 mL) (Heparin Inj) ??5,000 units 1 mL, Subcutaneous Injection, 3 times a day Levothyroxine 88 mcg Tablet (levothyroxine 0.088 mg oral tablet) ??88 mcg, By Mouth, Daily Lisinopril 20 mg Tablet (lisinopril 20 mg oral tablet) ??20 mg, By Mouth, Daily NaCl 0.9% Flush 3ml (NaCL 0.9% Flush) ??3 mL, IV Push, Every 8 hours Tamsulosin 0.4 mg Capsule (tamsulosin 0.4 mg oral capsule) ??0.4 mg, By Mouth, Daily CONTINUOUS: (0) PRN: (5) Acetaminophen 325 mg Tablet (Acetaminophen Tablet) ??650 mg, By Mouth, Every 4 hours diphenhydrAMINE 25 mg Tablet (Benadryl Tablet) ??25 mg, By Mouth, Every 6 hours Melatonin 3 mg Tablet (Melatonin Tablet) ??3 mg, By Mouth, Daily at bedtime NaCl 0.9% Flush 3ml (NaCL 0.9% Flush) ??3 mL, IV Push, Every 8 hours Senna 8.6 mg / Docusate 50 mg tablet (Docusate/Senna Tablet) ??1 tablet, By Mouth, 2 times a day ? Results Recent Labs BLOOD BANK Blood Type A Positive ()?? 09/27/2022 09:24 Antibody Screen Negative ()?? 09/27/2022 09:24 ?? BLOOD COUNT & DIFF WBC 8.0 k/mm3 ()?? 09/27/2022 09:31 RBC 5.04 m/mm3 ()?? 09/27/2022 09:31 Hgb 12.1 Gm/dL ()?? 09/27/2022 09:31 Hct 39.1 % ()?? 09/27/2022 09:31 MCV 77.6 femtoliters (Low)?? 09/27/2022 09:31 MCH 24.0 pg (Low)?? 09/27/2022 09:31 MCHC 30.9 g/dL (Low)?? 09/27/2022 09:31 Platelet Count 242 k/mm3 ()?? 09/27/2022 09:31 RDW-SD 59.7 femtoliters (High)?? 09/27/2022 09:31 MPV 10.1 femtoliters ()?? 09/27/2022 09:31 Nucleated RBC (Automated) 0.0 #/100 WBC'S ()?? 09/27/2022 09:31 Abs. NRBC 0.0 k/mm3 ()?? 09/27/2022 09:31 Abs. Neut 6.0 k/mm3 ()?? 09/27/2022 09:31 Abs. Lymph 1.3 k/mm3 ()?? 09/27/2022 09:31 Abs. [place] 0.5 k/mm3 ()?? 09/27/2022 09:31 Abs. Eo 0.2 k/mm3 ()?? 09/27/2022 09:31 Abs. Baso 0.0 k/mm3 ()?? 09/27/2022 09:31 Neut % 74.7 % ()?? 09/27/2022 09:31 Lymph % 16.1 % ()?? 09/27/2022 09:31 [place] % 6.1 % ()?? 09/27/2022 09:31 Eos % 2.9 % ()?? 09/27/2022 09:31 Baso % 0.1 % ()?? 09/27/2022 09:31 Imm Gran 0.1 % ()?? 09/27/2022 09:31 Abs. Imm Gran 0.0 k/mm3 ()?? 09/27/2022 09:31 ?? CARDIAC High Sensitivity Troponin (HSTnT) 12 ng/L ()?? 09/27/2022 09:31 ?? CHEM GENERAL Sodium 140 mmol/L ()?? 09/27/2022 09:31 Potassium 4.1 mmol/L ()?? 09/27/2022 09:31 Chloride 105 mmol/L ()?? 09/27/2022 09:31 Bicarbonate Level 23 mmol/L ()?? 09/27/2022 09:31 Anion Gap 12 ()?? 09/27/2022 09:31 Glucose Level 93 mg/dL ()?? 09/27/2022 09:31 Glucose, POC 105 mg/dL (High)?? 09/27/2022 09:22 Hemoglobin A1C (Monitoring) 5.6 % ()?? 09/28/2022 01:06 BUN 13 mg/dL ()?? 09/27/2022 09:31 Creatinine-Blood 0.5 mg/dL ()?? 09/27/2022 09:31 Estimated GFR Creatinine 98 ML/MIN/1.73 M2 ()?? 09/27/2022 09:31 Calcium 9.5 mg/dL ()?? 09/27/2022 09:31 AST (SGOT) 23 units/L ()?? 09/27/2022 09:31 C-Reactive Protein <0.3 mg/dL ()?? 09/28/2022 01:06 ?? COAG INR 1.0 ()?? 09/27/2022 11:52 Protime (PT) 10.3 seconds ()?? 09/27/2022 11:52 APTT <22.0 seconds (Low)?? 09/27/2022 11:52 ?? ENDOCRINE/TUMOR MARKER TSH 0.75 uIU/mL ()?? 09/28/2022 01:06 Free T4 1.21 ng/dL ()?? 09/28/2022 01:06 ?? HEME OTHER Sed Rate <2 mm/hr ()?? 09/28/2022 01:06 ?? LIPID STUDIES Cholesterol 128 mg/dL ()?? 09/28/2022 01:06 Triglycerides 120 mg/dL ()?? 09/28/2022 01:06 HDL Cholesterol 42 mg/dL ()?? 09/28/2022 01:06 LDL Cholesterol 62 mg/dL ()?? 09/28/2022 01:06 Non HDL Cholesterol 86 mg/dL ()?? 09/28/2022 01:06 ?? UA/URINALYSIS Appear/Color, Urine LIGHT YELLOW ()?? 09/27/2022 11:06 Specific [place], Urine 1.035 (High)?? 09/27/2022 11:06 pH, Urine 6.5 ()?? 09/27/2022 11:06 Albumin, Urine NEGATIVE ()?? 09/27/2022 11:06 Glucose, Urine NEGATIVE ()?? 09/27/2022 11:06 Ketones, Urine NEGATIVE ()?? 09/27/2022 11:06 Bilirubin, Urine NEGATIVE ()?? 09/27/2022 11:06 Hemoglobin, Urine NEGATIVE ()?? 09/27/2022 11:06 Nitrite, Urine NEGATIVE ()?? 09/27/2022 11:06 Leukocyte, Urine 3+ (Abnormal)?? 09/27/2022 11:06 Urobilinogen NORMAL mg/dL ()?? 09/27/2022 11:06 WBC's, Urine 65 /HPF (High)?? 09/27/2022 11:06 RBC's, Urine 2 /HPF ()?? 09/27/2022 11:06 Bacteria MODERATE HPF (Abnormal)?? 09/27/2022 11:06 Squamous Epith 6 /HPF ()?? 09/27/2022 11:06 Transitional Epith <1 /HPF ()?? 09/27/2022 11:06 Hold Urine Culture Testing available 48 hours from time of collection. ()?? 09/27/2022 11:06 ?? URINE OTHER Est Creatinine Clearance 76.68 mL/min ()?? 09/27/2022 15:15 ?? VIROLOGY COVID-19 by RT-PCR NEGATIVE ()?? 09/27/2022 11:06 ? Assessment/Plan Diagnoses TIA (transient ischemic attack) ??(G45.9) 1. ??Acute CVA (cerebrovascular accident) ??(I63.9) 2. ??Pyuria ??(R82.81) 3. ??Diabetes mellitus type 2 ??(E11.9) 4. ??Hypertension ??(I10) 5. ??Hypercholesterolemia ??(E78.00) 6. ??Hypothyroid ??(E03.9) 7. ??Thyroid nodule ??(E04.1) ? 77 y/o F with PMH of recent R brain stroke on Plavix (w/ L sided deficits) back in July 2022, bellspalsy, DM, HTN, HLD, and L adnexal mass followed by [facility] job recruiter who presented on 09/27 w/ aphasia and R sided weakness. LKW the night prior. Patient awoke with R sided weakness and aphasia. Initial NIHSS of 9 for aphasia and RUE drift.CTH nonacute. CTA w/o LVO, R P3 segment stenosis. OOW for TNK and no target for NEV. ?? Dx: new R sided weakness and aphasia improving, r/o stroke ?? Recommendations: - admit to D5A for q 4 hour neuro checks - MRI of brain w/o??to assess for infarct - DAPT: continue home Plavix 75 mg daily and add ASA 81mg daily - check LDL. recommend goal LDL <70 with high dose statin (continue home atorvastatin 20 mg daily) - check A1C - PM&R consult - cardiac telemetry - NPO until passes swallow eval - DVT ppx with SQH - permissive hypertension - provide stroke education - outpatient goals LDL between 40 &70, A1C <7%, and BP <120/80? D/w Dr. Weller * Krystle HUMPHRIES, Chucho Hewitt: PERFORM Event Display: Progress Note Hospital Authored Date: MRI brain withou new cva.?? likely TIA, continue DAPT and OP f/u with neurology * Kelsey Paiz MD: PERFORM Event Display: Progress Note Hospital Authored Date: Patient: ??VALENTINO GARCIA ? Age:??77 Years?Sex:??Female?:??1945?? Subjective Patient was seen and examined at bedside Overnight event noted Patient??still having difficulty with her speech Waiting for MRI Review of Systems All other systems reviewed, negative except mentioned.?? Allergies Allergies ?(Active and Proposed Allergies Only) metformin? (Severity: Unknown severity, Onset: Unknown) ?Reactions: rash Darvon? (Severity: Unknown severity, Onset: Unknown) ?Reactions: swelling ? Objective Measurements?? Height: 160 cm (09/28/22) Weight: 52.5 kg (09/27/22) Dry Weight: 52.5 kg (09/27/22) Body Mass Index: 20.51 kg/m2 (09/27/22) ? Physical Exam GENERAL: In no apparent distress HEENT: Head normocephalic, PERRL,Moist mucous membrane. Neck supple CARDIOVASCULAR: Normal rate and rhythm, no murmurs, no rubs, no gallops RESPIRATORY: Lungs clear to auscultation, no wheezes , no crackles ABDOMEN/GI: Nondistended, soft, nontender, normal bowel sounds EXTREMITIES: No pitting edema BENCH TOOL MAKER: Alert and oriented x 3. speech dysarthric RUE and RLE at least 4/5 LUE 4-/5, LLE proximally 4-/5, distally 4/5., PSYCHIATRIC: Calm and co-operative SKIN: Warm and dry. ? Results Recent Labs BLOOD BANK Blood Type A Positive ()?? 09/27/2022 09:24 Antibody Screen Negative ()?? 09/27/2022 09:24 ?? BLOOD COUNT & DIFF WBC 8.0 k/mm3 ()?? 09/27/2022 09:31 RBC 5.04 m/mm3 ()?? 09/27/2022 09:31 Hgb 12.1 Gm/dL ()?? 09/27/2022 09:31 Hct 39.1 % ()?? 09/27/2022 09:31 MCV 77.6 femtoliters (Low)?? 09/27/2022 09:31 MCH 24.0 pg (Low)?? 09/27/2022 09:31 MCHC 30.9 g/dL (Low)?? 09/27/2022 09:31 Platelet Count 242 k/mm3 ()?? 09/27/2022 09:31 RDW-SD 59.7 femtoliters (High)?? 09/27/2022 09:31 MPV 10.1 femtoliters ()?? 09/27/2022 09:31 Nucleated RBC (Automated) 0.0 #/100 WBC'S ()?? 09/27/2022 09:31 Abs. NRBC 0.0 k/mm3 ()?? 09/27/2022 09:31 Abs. Neut 6.0 k/mm3 ()?? 09/27/2022 09:31 Abs. Lymph 1.3 k/mm3 ()?? 09/27/2022 09:31 Abs. [place] 0.5 k/mm3 ()?? 09/27/2022 09:31 Abs. Eo 0.2 k/mm3 ()?? 09/27/2022 09:31 Abs. Baso 0.0 k/mm3 ()?? 09/27/2022 09:31 Neut % 74.7 % ()?? 09/27/2022 09:31 Lymph % 16.1 % ()?? 09/27/2022 09:31 [place] % 6.1 % ()?? 09/27/2022 09:31 Eos % 2.9 % ()?? 09/27/2022 09:31 Baso % 0.1 % ()?? 09/27/2022 09:31 Imm Gran 0.1 % ()?? 09/27/2022 09:31 Abs. Imm Gran 0.0 k/mm3 ()?? 09/27/2022 09:31 ?? CARDIAC High Sensitivity Troponin (HSTnT) 12 ng/L ()?? 09/27/2022 09:31 ?? CHEM GENERAL Sodium 140 mmol/L ()?? 09/27/2022 09:31 Potassium 4.1 mmol/L ()?? 09/27/2022 09:31 Chloride 105 mmol/L ()?? 09/27/2022 09:31 Bicarbonate Level 23 mmol/L ()?? 09/27/2022 09:31 Anion Gap 12 ()?? 09/27/2022 09:31 Glucose Level 93 mg/dL ()?? 09/27/2022 09:31 Glucose, POC 105 mg/dL (High)?? 09/27/2022 09:22 Hemoglobin A1C (Monitoring) 5.6 % ()?? 09/28/2022 01:06 BUN 13 mg/dL ()?? 09/27/2022 09:31 Creatinine-Blood 0.5 mg/dL ()?? 09/27/2022 09:31 Estimated GFR Creatinine 98 ML/MIN/1.73 M2 ()?? 09/27/2022 09:31 Calcium 9.5 mg/dL ()?? 09/27/2022 09:31 AST (SGOT) 23 units/L ()?? 09/27/2022 09:31 C-Reactive Protein <0.3 mg/dL ()?? 09/28/2022 01:06 ?? COAG INR 1.0 ()?? 09/27/2022 11:52 Protime (PT) 10.3 seconds ()?? 09/27/2022 11:52 APTT <22.0 seconds (Low)?? 09/27/2022 11:52 ?? ENDOCRINE/TUMOR MARKER TSH 0.75 uIU/mL ()?? 09/28/2022 01:06 Free T4 1.21 ng/dL ()?? 09/28/2022 01:06 ?? HEME OTHER Sed Rate <2 mm/hr ()?? 09/28/2022 01:06 ?? LIPID STUDIES Cholesterol 128 mg/dL ()?? 09/28/2022 01:06 Triglycerides 120 mg/dL ()?? 09/28/2022 01:06 HDL Cholesterol 42 mg/dL ()?? 09/28/2022 01:06 LDL Cholesterol 62 mg/dL ()?? 09/28/2022 01:06 Non HDL Cholesterol 86 mg/dL ()?? 09/28/2022 01:06 ?? UA/URINALYSIS Appear/Color, Urine LIGHT YELLOW ()?? 09/27/2022 11:06 Specific [place], Urine 1.035 (High)?? 09/27/2022 11:06 pH, Urine 6.5 ()?? 09/27/2022 11:06 Albumin, Urine NEGATIVE ()?? 09/27/2022 11:06 Glucose, Urine NEGATIVE ()?? 09/27/2022 11:06 Ketones, Urine NEGATIVE ()?? 09/27/2022 11:06 Bilirubin, Urine NEGATIVE ()?? 09/27/2022 11:06 Hemoglobin, Urine NEGATIVE ()?? 09/27/2022 11:06 Nitrite, Urine NEGATIVE ()?? 09/27/2022 11:06 Leukocyte, Urine 3+ (Abnormal)?? 09/27/2022 11:06 Urobilinogen NORMAL mg/dL ()?? 09/27/2022 11:06 WBC's, Urine 65 /HPF (High)?? 09/27/2022 11:06 RBC's, Urine 2 /HPF ()?? 09/27/2022 11:06 Bacteria MODERATE HPF (Abnormal)?? 09/27/2022 11:06 Squamous Epith 6 /HPF ()?? 09/27/2022 11:06 Transitional Epith <1 /HPF ()?? 09/27/2022 11:06 Hold Urine Culture Testing available 48 hours from time of collection. ()?? 09/27/2022 11:06 ?? URINE OTHER Est Creatinine Clearance 76.68 mL/min ()?? 09/27/2022 15:15 ?? VIROLOGY COVID-19 by RT-PCR NEGATIVE ()?? 09/27/2022 11:06 ? 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 ?? Acute CVA (cerebrovascular accident) (I63.9):? Patient has passed swallow eval, continue DAPT? Continue Tele?? neurochecks every 4 hours ?MRI of the brain to evaluate for acute ischemia ??ESR/CRP, TSH, and hemoglobin A1c - normal?Continue atorvastatin 20 mg nightly,?? LDL 62 Permissive hypertension over the first 48 hours (SBP goal:??<200, hold antihypertensives while SBP within goal); plan to gradually lower to long-term goal <120/80 after initial 48 hours ??Neurology input appreciated, will follow up after above studies are resulted ??PM&R??input appreciated? Pyuria (R82.81):??The patient has pyuria with no urinary symptoms at this time. No fever or leukocytosis. We will follow up urine culture and hold off abx for now. Continue Flomax for urine incontinence. ?? Diabetes mellitus type 2 (E11.9):??The patient abides by a diabetic diet.??No current meds or insulin. Blood sugar here 93-105. ??Hb A1c 5.6 ?? Hypertension (I10) Hypercholesterolemia (E78.00):??Blood pressure controlled. Renal function is stable. Permissive HTN for tonight as outlined. Resume atenolol and lisinopril in 24-48 hours. ?? Hypothyroid (E03.9) Thyroid nodule (E04.1):??Continue levothyroxine. Check TSH and free T4. Nonemergent outpatient thyroid US based on CT results. ?? VTE Prophylaxis:??Heparin SC 5000 units three times daily. ?VTE Prophylaxis Assessment:??VTE Prophylaxis Ordered ?? Code Status:??DNR/DNI, discussed with patient. ?Order Code Status:??Code Status Ordered ? Consult note * Sandoval BELLO, Leobardo Leiva: PERFORM Event Display: Consultation Note Authored Date: Patient: ??VALENTINO GARCIA ? Age:??77 Years?Sex:??Female?:??1945?? Chief Complaint/Reason for Consult from [facility]- pt c/o headache, right arm weakness and difficulty word finding; previous cva in july this year History of Present Illness 77yo F with h/o recent stroke in July with reported residual left sided deficits, DM, eddy's palsy was brought to the ED with c/o aphasia and ??Right sided weakness. NIH [address] head showed nothing acute. CT angio showed no occlusion but revealed stenosis of the right BARREL STRAIGHTENER. She is now in the Obs unit with her BARREL STRAIGHTENER at bedside. Patient states she had a stroke in July and was treated at [facility] and subsequently went to [facility] for rehab. She was discharged home and has home-based PT and BARREL STRAIGHTENER care daily. She currently tells me she is having left sided weakness which is contradictory to her initial presentation. She was noted to have akathisia while lying supine. Her BARREL STRAIGHTENER stated these symptoms were new however, upon??questioning again, the BARREL STRAIGHTENER told me she has had these symptoms since her stroke in July. The patient is indep with ADLs and mobility. can top setter assist with IADLs. She also c/o pruritic rash on antecubital fossa and around her neck. Pt has no NOK--stated they all . Review of Systems 14 point review of systems negative except as noted above in HPI. Physical Exam Vitals & Measurements T:??98.0?F?? HR:??77??(Peripheral)?? RR:??17?? BP:??135/79?? SpO2:??93%?? HT:??160??cm?? WT:??52.5??kg?? BMI:??20.51?? Gen: Alert, oriented to self, situation, place, but not time. HEENT: pupils equal, tracking bilat. Blink to threat bilat. CV: Reg, no murmurs Chest: CTA bilat Abd: +BS, soft, NT Exts: trace pedal edema erythematous rash around antecubital fossa on right and neck area. ?? Neuro: CN II-XII intact except left droop MMT: RUE and RLE at least 4/5 LUE 4-/5, LLE proximally 4-/5, distally 4/5. Babinski equivocal Sensory: no extinction DTRs: biceps 1+, patella absent bilat Coordination: mild tremor with F to N testing bilat. Akathisia noted. ?? Speech/Language: mild dysarthria, vocal tremor noted. Able to name and repeat with delay. Mobility: deferred Swallow: ? Purees: intact ? Liquids: intact Assessment/Plan 77yo F with reported recent infarct in July with residual left hemiparesis treated at [facility] for rehab now back home with home-based PT presents with new right--or ?left sided weakness. Nursing about to give benadryl for pruritic rash. ?? Recommendations: ?? Activity:??Encourage ambulation with assistance Bowel Regimen:??Monitor on current regimen Bladder:??Bladder scan for post void residual Q shift X 3 to rule out retention. Straight cath if > 250 ml. Cognition/psychopharmacology:??Avoid benzos, anticholinergics and antihistaminergics because of age.?? Baseline unclear at this time. Consider geriatrics consult. DVT prophylaxis:??Heparin ?? Neurology:??Appreciate Neurology Note. Workup ongoing. Akathisia noted on evaluation today. No medications that could be implicated in patient's history. Pain Management:??Appears comfortable.?? Spasticity:??None ?? Swallow: Not an issue currently, monitor s/sx of aspiration ?? Current rehab treatment & further recommendations: Occupational Therapy:??Would start in a few days if discharge not imminent. Physical Therapy:??Ordered Speech Therapy:??Not needed. ?? Disposition: Best option to be determined. ?? Code Status:??No Resuscitation HCP:??No HCP in [facility]---she should name one. Problem List/Past Medical History Ongoing Eddy palsy Constipation Depression Diabetes mellitus type 2 Gastritis GERD - Gastro-esophageal reflux disease Hypercholesterolemia Hypertension Hypothyroid Irritable bowel Osteoporosis Ovarian mass Stroke Thyroid nodule Procedure/Surgical History Repair recurrent incisional or ventral hernia; reducible Home Medications Acetaminophen: 650 mg, By Mouth, Every 4 hours Alendronate: 70 mg = 1 tablet, By Mouth, Every 28 days Aspirin: 81 mg, By Mouth, Daily Atenolol: 50 mg, By Mouth, Daily Atorvastatin: 20 mg = 1 tablet, By Mouth, Daily Calcium Carbonate: By Mouth, Daily in AM Cholecalciferol: 50 mcg = 1 capsule, By Mouth, Daily Clopidogrel: 75 mg = 1 tablet, By Mouth, Daily Cyanocobalamin Docusate: 100 mg = 1 capsule, By Mouth, Daily Levothyroxine: 88 mcg = 1 tablet, By Mouth, Daily Lisinopril: 20 mg = 1 tablet, By Mouth, Daily [place]-3 Polyunsaturated Fatty Acids: 2000mgs, By Mouth, Daily at bedtime Tamsulosin: 0.4 mg = 1 capsule, By Mouth, Daily Hospital Medications Medications (15) Active SCHEDULED: (10) Aspirin 81 mg EC Tablet (aspirin 81 mg oral delayed release tablet) ??81 mg, By Mouth, Daily Atenolol 50 mg Tablet (Atenolol Tablet) ??50 mg, By Mouth, Daily Atorvastatin 20 mg Tablet (atorvastatin 20 mg oral tablet) ??20 mg, By Mouth, Daily Clopidogrel 75 mg Tablet (Plavix 75 mg oral tablet) ??75 mg, By Mouth, Daily Docusate Sodium 100 mg Capsule (Colace sodium 100 mg oral capsule) ??100 mg 1 capsule, By Mouth, Daily Heparin 5000 units/mL Inj (1 mL) (Heparin Inj) ??5,000 units 1 mL, Subcutaneous Injection, 3 times a day Levothyroxine 88 mcg Tablet (levothyroxine 0.088 mg oral tablet) ??88 mcg, By Mouth, Daily Lisinopril 20 mg Tablet (lisinopril 20 mg oral tablet) ??20 mg, By Mouth, Daily NaCl 0.9% Flush 3ml (NaCL 0.9% Flush) ??3 mL, IV Push, Every 8 hours Tamsulosin 0.4 mg Capsule (tamsulosin 0.4 mg oral capsule) ??0.4 mg, By Mouth, Daily CONTINUOUS: (0) PRN: (5) Acetaminophen 325 mg Tablet (Acetaminophen Tablet) ??650 mg, By Mouth, Every 4 hours diphenhydrAMINE 25 mg Tablet (Benadryl Tablet) ??25 mg, By Mouth, Every 6 hours Melatonin 3 mg Tablet (Melatonin Tablet) ??3 mg, By Mouth, Daily at bedtime NaCl 0.9% Flush 3ml (NaCL 0.9% Flush) ??3 mL, IV Push, Every 8 hours Senna 8.6 mg / Docusate 50 mg tablet (Docusate/Senna Tablet) ??1 tablet, By Mouth, 2 times a day Lab Results PM&R Labs WBC: 8 k/mm3 (09/27/22) Platelet Count: 242 k/mm3 (09/27/22) Sodium: 140 mmol/L (09/27/22) BUN: 13 mg/dL (09/27/22) Creatinine-Blood: 0.5 mg/dL (09/27/22) AST (SGOT): 23 units/L (09/27/22 09:31:00) * Leona Mauricio: PERFORM, MODIFY Event Display: Consultation Note Authored Date: Patient: ??VALENTINO GARCIA ? Age:??77 Years?Sex:??Female?:??1945?? Chief Complaint/Reason for Consultation from [facility]- pt c/o headache, hives to chest, left arm tingling, right arm weakness and difficulty word finding; previous cva in july this year History of Present Illness 77 y/o F with PMH of recent R brain stroke (w/ L sided deficits) back in July 2022, bells palsy, DM, HTN, HLD, and L adnexal mass followed by [facility] job recruiter who presented on 09/27 w/ aphasia and R sided weakness. LKW the night prior, no specific time as patient is currently nonverbal. Patient awoke with R sided weakness and aphasia. She is on Plavix. Initial NIHSS of 9 for aphasia and RUE drift. She improved to mouthing I need to pee after scans but that was the only attempt to verbalize. ?? Stroke Time Course: Time patient last seen well (not time patient was found):??sometime last night, exact time unknown. Time patient arrived in ED:?? Time neurology consulted/paged:??Overhead announcement in ED but never formal page Time patient is seen by neurology:??[address] head/interpreted:??926 tPA Given:??No tPA time if given: N/A Reason for tPA exclusion if not given:??OOW Review of Systems Cannot formally obtain with aphasia. Objective ? Vital Signs?? Temperature: 97.9 DegF (09/27/22 09:44:00) Temperature Route: Oral (09/27/22 09:44:00) Pulse Rate: 81 bpm (09/27/22 09:44:00) Respiratory Rate: 16 br/min (09/27/22 09:44:00) Systolic Blood Pressure:??162 mm Hg??High (09/27/22 09:44:00) Diastolic Blood Pressure:??97 mm Hg??High (09/27/22 09:44:00) Blood pressure sites: Arm, right (09/27/22 09:44:00) Mean Arterial Pressure: 119 mm Hg (09/27/22 09:44:00) Pulse Pressure: 65 mm Hg (09/27/22 09:44:00) Oxygen Saturation: 100 % (09/27/22 09:44:00) Mode of Delivery (Oxygen): Room air (09/27/22 09:44:00) ? NIH Stroke Scale Level of Consciousness for Stroke Scale: Alert (09/27/22 09:23:00) Response Month/Age: Answers neither question correctly (09/27/22 09:23:00) Response Open/Close Eyes: Performs both tasks correctly (09/27/22 09:23:00) Best Gaze: Normal (09/27/22 09:23:00) Visual: No visual loss (09/27/22 09:23:00) Facial Palsy: Minor paralysis (09/27/22 09:23:00) Motor Function Left Arm: No drift (09/27/22 09:23:00) Motor Function Right Arm: Drift (09/27/22 09:23:00) Motor Function Left Leg: No drift (09/27/22 09:23:00) Motor Function Right Leg: No drift (09/27/22 09:23:00) Limb Ataxia: Absent (09/27/22 09:23:00) Sensory: Normal; no sensory loss (09/27/22 09:23:00) Best Language: Mute, global aphasia (09/27/22 09:23:00) Dysarthria NIH Stroke Scale: Severe dysarthria (09/27/22 09:23:00) Extinction and Inattention: No abnormality (09/27/22 09:23:00) NIH Stroke Scale Score: 9 (09/27/22 09:23:00) ?? Houston Coma Scale Houston Coma Score: 15 (09/27/22 10:07:00) Motor Response-Adult: Obeys commands (09/27/22 10:07:00) Response Eye Opening: Spontaneously (09/27/22 10:07:00) Verbal Response-Adult: Oriented and converses (09/27/22 10:07:00) ? Physical Exam Gen: NAD, awake, alert HEENT: normocephalic, atraumatic. No ptosis. Nares patent. Mouth normal. Psych: not depressed or anxious Cardio: RRR Lungs: normal I:E Abdomen: nondistended Extremities: no edema Skin: hives on chest Neuro: No verbal output. Mouths I need to pee after scans. Cannot name but follows commands. Cranial Nerves: PERRL, EOMI without nystagmus, +BTT b/l. R FD. Motor: RUE 4/5 w/ drift, LUE 4+/5. BLE 4+/5. R sided abnormal movements, appearance like TD. Sensation: Intact light touch sensation bilaterally. Coordination: No ataxia or dysmetria noted with finger to nose.? CT Head IMPRESSION: ?? There is no acute intracranial abnormality. ?? Images have been personally reviewed by myself. ? CTA Head/neck IMPRESSION: ? 1. ??No proximal occlusion or high grade stenosis in the major arteries of the head and neck. 2. ??Moderate right BARREL STRAIGHTENER P3 segment stenosis. 3. ??Thyroid nodules measuring up to 1.8 cm on the left. Consider nonemergent follow-up thyroid ultrasound for further characterization. ?? Images have been personally reviewed by myself. ?? Assessment/Plan 77 y/o F with PMH of recent R brain stroke on Plavix (w/ L sided deficits) back in July 2022, bellspalsy, DM, HTN, HLD, and L adnexal mass followed by [facility] job recruiter who presented on 09/27 w/ aphasia and R sided weakness. LKW the night prior. Patient awoke with R sided weakness and aphasia. Initial NIHSS of 9 for aphasia and RUE drift. She improved to mouthing I need to pee after scans but that was the only attempt to verbalize.??CTH nonacute. CTA w/o LVO, R P3 segment stenosis. OOW for TNK and no target for NEV. ?? Dx: new R sided weakness and aphasia, r/o stroke ?? Recommendations: - admit to D5A for q 4 hour neuro checks - MRI of brain w/o??to assess for infarct - DAPT: continue home Plavix 75 mg daily and add ASA 81mg daily - check LDL. recommend goal LDL <70 with high dose statin (continue home atorvastatin 20 mg daily) - check A1C - PM&R consult - cardiac telemetry - NPO until passes swallow eval - DVT ppx with SQH - permissive hypertension - provide stroke education - outpatient goals LDL between 40 &70, A1C <7%, and BP <120/80? D/w Dr. Weller Call/cortex with any questions. Neurology will follow. ?? Histories Allergies Allergies ?(Active and Proposed Allergies Only) metformin? (Severity: Unknown severity, Onset: Unknown) ?Reactions: rash Darvon? (Severity: Unknown severity, Onset: Unknown) ?Reactions: swelling ? Past Medical History/Problem List Active Problems??(13) Eddy palsy Constipation Depression Diabetes mellitus type 2 Gastritis GERD - Gastro-esophageal reflux disease Hypercholesterolemia Hypertension Hypothyroid Irritable bowel Osteoporosis Ovarian mass Stroke ? Past Surgical History Repair recurrent incisional or ventral hernia; reducible ? Social History Alcohol Details:??Use: Past. Employment/School Details:??Status: Retired. Exercise Details:??Self assessment: Fair condition. Home/Environment Details:??Living situation: Home/Independent. ??Lives with: Alone. Nutrition/Health Details:??Diet: Regular. Sexual Details:??Sexually involved in last 6 months: No. Substance Abuse Details:??Use: Never. Tobacco Details:??Use: Former smoker, quit more than 30 days ago. ? Family History No family history recorded. ? Medications Home Medications Acetaminophen (Tylenol Tablet)?650?Milligram?By Mouth?Every 4 hours Alendronate (Fosamax 70 mg oral tablet)?1?tab(s)?70?Milligram?By Mouth?Every 28 days Amlodipine?10?Milligram?By Mouth?Daily at bedtime Ascorbic Acid (Vitamin C)?1,000?Milligram?By Mouth?Daily Aspirin?81?Milligram?By Mouth?Daily Atenolol (Atenolol Tablet)?50?Milligram?By Mouth?2 times a day Atorvastatin (atorvastatin 20 mg oral tablet)?1?tab(s)?20?Milligram?By Mouth?Daily Calcium Carbonate (Oysco 500)?By Mouth?Daily in AM Cranberry?500mgs?Daily fluticasone-vilanterol (Breo Ellipta 100 mcg-25 mcg/inh inhalation powder)?1?puff(s)?Inhalation?Daily Levothyroxine (levothyroxine 0.088 mg oral tablet)?1?tab(s)?88?Microgram?By Mouth?Daily Multivitamin (Multivitamin Tablet)?1?tab(s)?By Mouth?Daily Ocular Lubricant (Artificial Tears 1.4%)?Eyes, Both?3 times a day [place]-3 Polyunsaturated Fatty Acids (Fish Oil)?2000mgs?By Mouth?Daily at bedtime Omeprazole (Prilosec OTC)?20?Milligram?By Mouth?2 times a day Oxycodone (oxyCODONE 5 mg oral tablet)?5?Milligram?1?tablet?By Mouth?Every 6 hours?as needed?TAKE 1-2 EVERY 6 HOURS FOR ACUTE PELVIC FRACTURE?Pain Paroxetine (Paxil Tablet)?40?Milligram?By Mouth?Daily at bedtime Senna (Senokot 187 mg oral tablet)?2?tab(s)?17.2?Milligram?By Mouth?Daily at bedtime?as needed?for constipation?start if you start percocet Senna (senna 187 mg oral tablet)?2?tab(s)?17.2?Milligram?By Mouth?Daily Sulfamethoxazole/Trimethoprim (Bactrim DS 800 mg-160 mg oral tablet)?1?tab(s)?By Mouth?2 times a day?for 3?Days umeclidinium (Incruse Ellipta 62.5 mcg/inh inhalation powder)?Inhalation?Every 24 hours Vitamin E (Vitamin E Capsule)?400?International Unit?By Mouth?Daily ? Results Recent Labs BLOOD COUNT & DIFF WBC 8.0 k/mm3 ()?? 09/27/2022 09:31 RBC 5.04 m/mm3 ()?? 09/27/2022 09:31 Hgb 12.1 Gm/dL ()?? 09/27/2022 09:31 Hct 39.1 % ()?? 09/27/2022 09:31 MCV 77.6 femtoliters (Low)?? 09/27/2022 09:31 MCH 24.0 pg (Low)?? 09/27/2022 09:31 MCHC 30.9 g/dL (Low)?? 09/27/2022 09:31 Platelet Count 242 k/mm3 ()?? 09/27/2022 09:31 RDW-SD 59.7 femtoliters (High)?? 09/27/2022 09:31 MPV 10.1 femtoliters ()?? 09/27/2022 09:31 Nucleated RBC (Automated) 0.0 #/100 WBC'S ()?? 09/27/2022 09:31 Abs. NRBC 0.0 k/mm3 ()?? 09/27/2022 09:31 Abs. Neut 6.0 k/mm3 ()?? 09/27/2022 09:31 Abs. Lymph 1.3 k/mm3 ()?? 09/27/2022 09:31 Abs. Bergen 0.5 k/mm3 ()?? 09/27/2022 09:31 Abs. Eo 0.2 k/mm3 ()?? 09/27/2022 09:31 Abs. Baso 0.0 k/mm3 ()?? 09/27/2022 09:31 Neut % 74.7 % ()?? 09/27/2022 09:31 Lymph % 16.1 % ()?? 09/27/2022 09:31 Bergen % 6.1 % ()?? 09/27/2022 09:31 Eos % 2.9 % ()?? 09/27/2022 09:31 Baso % 0.1 % ()?? 09/27/2022 09:31 Imm Gran 0.1 % ()?? 09/27/2022 09:31 Abs. Imm Gran 0.0 k/mm3 ()?? 09/27/2022 09:31 ?? CHEM GENERAL Glucose, POC 105 mg/dL (High)?? 09/27/2022 09:22 ? Abnormal Labs ?? BLOOD COUNT & DIFF ??Abs. Imm Gran ??0.0 k/mm3 () ??09/27/2022 09:31 ??Abs. NRBC ??0.0 k/mm3 () ??09/27/2022 09:31 ??Imm Gran ??0.1 % () ??09/27/2022 09:31 ??MCH ??24.0 pg (Low) ??09/27/2022 09:31 ??MCHC ??30.9 g/dL (Low) ??09/27/2022 09:31 ??MCV ??77.6 femtoliters (Low) ??09/27/2022 09:31 ??Nucleated RBC (Automated) ??0.0 #/100 WBC'S () ??09/27/2022 09:31 ??RDW-SD ??59.7 femtoliters (High) ??09/27/2022 09:31 ? CHEM GENERAL ??Glucose, POC ??105 mg/dL (High) ??09/27/2022 09:22 ? Note: Critical results are displayed in red. ? Blood Glucose Trend Glucose, POC:??105 mg/dL??High (09/27/22 09:22:00) ? CBC, CBC w/Diff?? CBC?? Differential?? WBC: 8 k/mm3 (:) Abs. Neut: 6 k/mm3 (:) RBC: 5.04 m/mm3 (:) Abs. Lymph: 1.3 k/mm3 (:) Hct: 39.1 % (:) Abs. Bergen: 0.5 k/mm3 (:) RDW-SD:??59.7 femtoliters??High () Abs. Eo: 0.2 k/mm3 (:) Nucleated RBC (Automated): 0 #/100 WBC'S (:) Abs. Baso: 0 k/mm3 (:) Abs. NRBC: 0 k/mm3 (:31) Neut %: 74.7 % (09:31) ?? Lymph %: 16.1 % (09:) ?? Bergen %: 6.1 % (:) ?? Eos %: 2.9 % (:) ?? Baso %: 0.1 % (:) ?? Imm Gran: 0.1 % (:) ?? Abs. Imm Gran: 0 k/mm3 (:) ? BMP, Mg, and Phos?? No qualifying data available. ?? Coagulation Profile?? No qualifying data available. ?? LFT?? No qualifying data available. ?? Urinalysis?? No qualifying data available. ? Blood Gases?? No qualifying data available. ?? Uric/LDH?? No qualifying data available. ? * Chalo Weller MD: PERFORM Event Display: Consultation Note Authored Date: [id number] I saw the patient, confirm the history and exam and agree with the assessment and plan. Note * Nga Hsu RN: PERFORM Event Display: Discharge/Transfer Note Hospital Authored Date: [id number] Nursing Discharge Note Entered On: 09/29/2022 15:24 EDT Performed On: 09/29/2022 15:23 EDT by Nga Hsu RN Nursing Discharge Note 2 Discharge Time : 09/29/2022 15:23 EDT Discharge Level of Care at Discharge : Homehealth/VNA Discharge VNA/Hospice/Home Care(v001) : [facility] [phone] Patient Left Unit Via : Wheelchair Patient Accompanied Off Unit with : Responsible adult DC Instructions Provided & Signed by Pt : Yes Patient Understands D/C Instructions : Yes Patient Instructions Discharge Signed : Yes Did Pt have Specialty Bed or Wound Vac : No Nga Hsu RN - 09/29/2022 15:23 EDT * Sugar Mckeon MD: PERFORM, MODIFY Event Display: Discharge/Transfer Note Hospital Authored Date: [id number] Patient: ??VALENTINO GARCIA ? Age:??77 Years?Sex:??Female?:??1945?? Patient Information Discharge Location: [facility] Primary Care Physician: Sangeetha Sage MD Admit Date/Time: 09/27/22 09:19 Discharge Disposition Discharge Disposition: Home with Home Health Discharge Diagnosis Acute CVA (cerebrovascular accident) (I63.9) Pyuria (R82.81) Diabetes mellitus type 2 (E11.9) Hypertension (I10) Hypercholesterolemia (E78.00) Hypothyroid (E03.9) Thyroid nodule (E04.1) TIA (transient ischemic attack) (G45.9) ?? _ Discharge Medications Alendronate (Fosamax 70 mg oral tablet)?1?tab(s)?70?Milligram?By Mouth?Every 7 days Aspirin?81?Milligram?By Mouth?Daily Atenolol (Atenolol Tablet)?50?Milligram?By Mouth?Daily Atorvastatin (atorvastatin 20 mg oral tablet)?1?tab(s)?20?Milligram?By Mouth?Daily Calcium And Vitamin D Combination (Oysco 500 with D 500 mg-200 intl units oral tablet)?1?tab(s)?By Mouth?Daily Cholecalciferol (Vitamin D3 2000 intl units oral capsule)?1?capsule?50?Microgram?By Mouth?Daily Clopidogrel (Plavix 75 mg oral tablet)?75?Milligram?1?tablet?By Mouth?Daily Clotrimazole Topical (Clotrimazole 1% Topical)?1?dimitri?Topically?2 times a day?as needed?Itch?under breast. Docusate (Colace sodium 100 mg oral capsule)?100?Milligram?1?capsule?By Mouth?Daily Hydrocortisone Topical (HydroCORTisone ??2.5% Topical)?1?dimitri?Topically?2 times a day?as needed?Itch?on face and neck Levothyroxine (levothyroxine 0.088 mg oral tablet)?1?tab(s)?88?Microgram?By Mouth?Daily Lisinopril (lisinopril 20 mg oral tablet)?20?Milligram?1?tablet?By Mouth?Daily [place]-3 Polyunsaturated Fatty Acids (Fish Oil)?1,000?Milligram?By Mouth?Daily at bedtime Polyethylene Glycol 3350 (MiraLax oral powder for reconstitution)?17?gram?By Mouth?Daily?dissolve in water before taking Senna (Senokot 187 mg oral tablet)?2?tab(s)?17.2?Milligram?By Mouth?Daily at bedtime?as needed?for constipation?start if you start percocet Tamsulosin (tamsulosin 0.4 mg oral capsule)?0.4?Milligram?1?capsule?By Mouth?Daily ? Quality Measures Stroke Quality Measures:? Medications Started none Medications Discontinued none Future Appointments Monday 10:45 AM EDT ?? Where: [address] [facility] [address] [place] [address]- Status: Pending Monday 10:00 AM EDT ?? With: Yunior BELLO, Jyoti Gage Where: [facility] [employer]PER[employer] Oncology [address] [facility] 4[address] [place] [address] [place] [address]- Status: Pending Objective Assessment and Plan ?? Patient is a??77-year-old female with history of left Edyd's palsy, previous right brain CVA statuspost tPA July 2022, hypertension, hyperlipidemia, diet- controlled diabetes mellitus type 2, GERD, hypothyroidism, thyroid nodules, depression, ovarian mass, and osteoporosis who presented to the emergency room after waking up this morning with aphasia and right upper extremity weakness.??Admission requested for potential stroke. ?? Acute CVA (cerebrovascular accident) (I63.9):??Ruled out Patient has passed swallow eval, continue DAPT?? TIA : tele is??wnl?? MRI of the brain to evaluate for acute ischemia, no acute stroke ESR/CRP, TSH, and hemoglobin A1c - normal?? Continue atorvastatin 20 mg nightly,?? LDL 62 Neurology input appreciated, will follow up after above studies are resulted PM&R??input appreciated?? continue aspirin and Plavix as per neurology , no other recommendations. ? Pyuria (R82.81):?? The patient has pyuria with no urinary symptoms at this time. No fever or leukocytosis. urine culture?? neg no need for Continue Flomax for urine incontinence. ?? Diabetes mellitus type 2 (E11.9):?? The patient abides by a diabetic diet.?? No current meds or insulin. Blood sugar here 93-105. Hb A1c 5.6 ?? Hypertension (I10) Hypercholesterolemia (E78.00):??Blood pressure controlled. Renal function is stable. Permissive HTN?? was for a day Resume atenolol and lisinopril ?? Hypothyroid (E03.9) Thyroid nodule (E04.1):??Continue levothyroxine. TSH and free T4. Nonemergent outpatient thyroid US as outpatient. ? Patient was seen and examined today at bedside, no new complains, will be discharged today. with the above mentioned medications. ?? Vital Signs?? Temperature: 98.2 DegF (09/29/22 10:34:00) Temperature Route: Oral (09/29/22 10:34:00) Pulse Rate: 60 bpm (09/29/22 10:34:00) Respiratory Rate: 17 br/min (09/29/22 12:20:00) Systolic Blood Pressure: 110 mm Hg (09/29/22 10:34:00) Diastolic Blood Pressure: 59 mm Hg (09/29/22 10:34:00) Blood pressure sites: Arm, right (09/29/22 10:34:00) Mean Arterial Pressure: 76 mm Hg (09/29/22 10:34:00) Pulse Pressure: 51 mm Hg (09/29/22 10:34:00) Oxygen Saturation: 99 % (09/29/22 10:34:00) Mode of Delivery (Oxygen): Room air (09/29/22 10:34:00) Early Warning Score: 0 (09/29/22 12:22:55) ? . Physical Exam General: Lying comfortably in bed, no evident distress Cardiac: S1 + S2 + 0, no murmurs heard Respiratory: CTA, No wheezes, Rales or crackles heard Abdomen: soft, nondistended, nontender Extremities: No edema or cyanosis present Neurological: AO X 3 , cranial nerves grossly normal?? Pending Results Add On Lab Order ordered on 09/27/2022 Follow-Up Appointments Added Follow Up ?Time Frame ?Comments Chu BELLO, Sangeetha [facility] Face to Face *Denotes mandatory [place] ?? *I certify that this patient is under my care and that I or an allowed non- physician working with me had a face to face encounter with the patient on this date:??09/29/2022 14:05 ?? *The encounter with the patient was in whole, or in part, for the following medical condition, which is the primary diagnosis(es) for home health care:??Acute CVA (cerebrovascular accident) (I63.9) Pyuria (R82.81) Diabetes mellitus type 2 (E11.9) Hypertension (I10) Hypercholesterolemia (E78.00) Hypothyroid (E03.9) Thyroid nodule (E04.1) TIA (transient ischemic attack) (G45.9) ? *Select the indications for the discipline/s that are being arranged for this patient. Nursing (select all that apply): [_] None [_] Medication management (reconciliation, teaching)?? [x] Chronic disease management?? [_] Wound care and treatment?? [_] Home safety evaluation [_] Administer SQ/IM/IV medications?? [_] Cath care?? [_] Drain care?? [_] Trach or GT care?? Other _ Occupation Therapy (select all that apply): [_] None [_] ADL Management [_] Fall prevention training [_] Energy conservation [_] Cognitive training Other _ Physical Therapy (select all that apply): [_] None [x] Functional mobility training [_] Home exercise program to strengthen [_] Increase ROM?? [_] Falls prevention training [_] Home maintenance program for chronic disease Other _ Speech Therapy (select all that apply): [_] None [_] Swallow evaluation and training [_] Speech and language training [_] Cognitive training to process, organize, and/or recall information Other _ ? *Homebound due to (select all that apply): [x] Inability to leave home without assistance/supervision [_] Inability to ambulate without assistance [_] Pain [_] Decreased strength and endurance [_] Unsteady gait [_] Severe SOB and fatigue [_] Impaired transfers [_] Inability to negotiate stairs [_] Limited weight bearing [_] Mental status change? *Physician Signature:??Sugar Mckeon ?? *By signing this, I certify that I have personally evaluated the patient and agree with the findings and recommendations as documented above. ? Results Discharge Labs BLOOD BANK Blood Type A Positive ()?? 09/27/2022 09:24 Antibody Screen Negative ()?? 09/27/2022 09:24 ?? BLOOD COUNT & DIFF WBC 8.0 k/mm3 ()?? 09/27/2022 09:31 RBC 5.04 m/mm3 ()?? 09/27/2022 09:31 Hgb 12.1 Gm/dL ()?? 09/27/2022 09:31 Hct 39.1 % ()?? 09/27/2022 09:31 MCV 77.6 femtoliters (Low)?? 09/27/2022 09:31 MCH 24.0 pg (Low)?? 09/27/2022 09:31 MCHC 30.9 g/dL (Low)?? 09/27/2022 09:31 Platelet Count 242 k/mm3 ()?? 09/27/2022 09:31 RDW-SD 59.7 femtoliters (High)?? 09/27/2022 09:31 MPV 10.1 femtoliters ()?? 09/27/2022 09:31 Nucleated RBC (Automated) 0.0 #/100 WBC'S ()?? 09/27/2022 09:31 Abs. NRBC 0.0 k/mm3 ()?? 09/27/2022 09:31 Abs. Neut 6.0 k/mm3 ()?? 09/27/2022 09:31 Abs. Lymph 1.3 k/mm3 ()?? 09/27/2022 09:31 Abs. Bergen 0.5 k/mm3 ()?? 09/27/2022 09:31 Abs. Eo 0.2 k/mm3 ()?? 09/27/2022 09:31 Abs. Baso 0.0 k/mm3 ()?? 09/27/2022 09:31 Neut % 74.7 % ()?? 09/27/2022 09:31 Lymph % 16.1 % ()?? 09/27/2022 09:31 Bergen % 6.1 % ()?? 09/27/2022 09:31 Eos % 2.9 % ()?? 09/27/2022 09:31 Baso % 0.1 % ()?? 09/27/2022 09:31 Imm Gran 0.1 % ()?? 09/27/2022 09:31 Abs. Imm Gran 0.0 k/mm3 ()?? 09/27/2022 09:31 ?? CARDIAC High Sensitivity Troponin (HSTnT) 12 ng/L ()?? 09/27/2022 09:31 ? CHEM GENERAL Sodium 140 mmol/L ()?? 09/27/2022 09:31 Potassium 4.1 mmol/L ()?? 09/27/2022 09:31 Chloride 105 mmol/L ()?? 09/27/2022 09:31 Bicarbonate Level 23 mmol/L ()?? 09/27/2022 09:31 Anion Gap 12 ()?? 09/27/2022 09:31 Glucose Level 93 mg/dL ()?? 09/27/2022 09:31 Glucose, POC 105 mg/dL (High)?? 09/27/2022 09:22 Hemoglobin A1C (Monitoring) 5.6 % ()?? 09/28/2022 01:06 BUN 13 mg/dL ()?? 09/27/2022 09:31 Creatinine-Blood 0.5 mg/dL ()?? 09/27/2022 09:31 Estimated GFR Creatinine 98 ML/MIN/1.73 M2 ()?? 09/27/2022 09:31 Calcium 9.5 mg/dL ()?? 09/27/2022 09:31 AST (SGOT) 23 units/L ()?? 09/27/2022 09:31 C-Reactive Protein <0.3 mg/dL ()?? 09/28/2022 01:06 ?? COAG INR 1.0 ()?? 09/27/2022 11:52 Protime (PT) 10.3 seconds ()?? 09/27/2022 11:52 APTT <22.0 seconds (Low)?? 09/27/2022 11:52 ? ENDOCRINE/TUMOR MARKER TSH 0.75 uIU/mL ()?? 09/28/2022 01:06 Free T4 1.21 ng/dL ()?? 09/28/2022 01:06 ?? HEME OTHER Sed Rate <2 mm/hr ()?? 09/28/2022 01:06 ? LIPID STUDIES Cholesterol 128 mg/dL ()?? 09/28/2022 01:06 Triglycerides 120 mg/dL ()?? 09/28/2022 01:06 HDL Cholesterol 42 mg/dL ()?? 09/28/2022 01:06 LDL Cholesterol 62 mg/dL ()?? 09/28/2022 01:06 Non HDL Cholesterol 86 mg/dL ()?? 09/28/2022 01:06 ? UA/URINALYSIS Appear/Color, Urine LIGHT YELLOW ()?? 09/27/2022 11:06 Specific [place], Urine 1.035 (High)?? 09/27/2022 11:06 pH, Urine 6.5 ()?? 09/27/2022 11:06 Albumin, Urine NEGATIVE ()?? 09/27/2022 11:06 Glucose, Urine NEGATIVE ()?? 09/27/2022 11:06 Ketones, Urine NEGATIVE ()?? 09/27/2022 11:06 Bilirubin, Urine NEGATIVE ()?? 09/27/2022 11:06 Hemoglobin, Urine NEGATIVE ()?? 09/27/2022 11:06 Nitrite, Urine NEGATIVE ()?? 09/27/2022 11:06 Leukocyte, Urine 3+ (Abnormal)?? 09/27/2022 11:06 Urobilinogen NORMAL mg/dL ()?? 09/27/2022 11:06 WBC's, Urine 65 /HPF (High)?? 09/27/2022 11:06 RBC's, Urine 2 /HPF ()?? 09/27/2022 11:06 Bacteria MODERATE HPF (Abnormal)?? 09/27/2022 11:06 Squamous Epith 6 /HPF ()?? 09/27/2022 11:06 Transitional Epith <1 /HPF ()?? 09/27/2022 11:06 Hold Urine Culture Testing available 48 hours from time of collection. ()?? 09/27/2022 11:06 ? URINE OTHER Est Creatinine Clearance 76.68 mL/min ()?? 09/27/2022 15:15 ? VIROLOGY COVID-19 by RT-PCR NEGATIVE ()?? 09/27/2022 11:06 ? Microbiology ?? COVID-19 (Novel Coronavirus), Rapid PCR?? Completed?? Source: Nasal Body Site: Nose Collected Dt/Tm: 09/27/2022 10:59 Last Updated Dt/Tm: 09/27/2022 13:08 ? 36 ??minutes spent on discharge * Nga Hsu RN: PERFORM, MODIFY Event Display: Patient Education/Instruction Authored Date: [id number] Inpatient Adult Discharge Instructions [address] [address] Name: VALENTINO GARCIA : 1945 Visit: 09/27/2022 09:19:00 Current Date: 09/29/2022 14:46 Account: [id number] Inpatient Adult Discharge Instructions We would like to thank you for allowing us to assist you with your healthcare needs. The following includes patient education materials and information regarding your injury/illness. Our entire staffstrives to provide an excellent experience for our patients and their families. PLEASE ENSURE YOU FOLLOW-UP PER THE INSTRUCTIONS BELOW! ?? YOUR OPINION IS IMPORTANT TO US! Please complete the survey you may receive by mail or email. Your feedback will be used to make improvements to the healthcare experiences of our patients and their families. Surveys are administered by [employer] [place]. ?? If further treatment with your primary care physician or another doctor is recommended, it is important for you to keep the appointment. Call your primary care physician or return to the Emergency Department immediately if your condition worsens, fails to improve, or new symptoms develop. If you need to find a doctor, you can call [facility] for a referral at [phone] or toll free at [phone] or log in to [email or web address].. ?? You can view and manage your care through the patient portal or by using a health care dimitri of your choosing. [employer] is a website that allows you to securely view your medical information including your hospital discharge summary, office visit summaries, medications and follow-up visits. You can also request appointments, renew medications, and request access to your medical information using a health care dimitri of your choosing, or just ask a question. You can enroll at [email or web address] or register during your next office visit. You have been discharged from [facility], Patient Care Unit: D3B. If you have any questions regarding these instructions after you leave, please call us and we will be happy to assist you. [facility] Your Care Team Attending Physician Sugar Mckeon MD Consulting Providers Sandoval BELLO, Leobardo Weller MD, Chalo Discharging Providers Sugar Mckeon MD Reason for Admission from [facility]- pt c/o headache, right arm weakness and difficulty word finding; previous cva in july this year Your Diagnosis Acute CVA (cerebrovascular accident) Pyuria Diabetes mellitus type 2 Hypertension Hypercholesterolemia Hypothyroid Thyroid nodule TIA (transient ischemic attack) Tests Performed Below is a partial list of the tests performed during your hospitalization. You may have had other tests and procedures not included in this list. Please discuss all test results with your provider. AST Basic Metabolic Panel CBC w/ Differential COVID-19 (Novel Coronavirus), Rapid PCR CRP ESR GLUCOSE POC Hgb A1C (Monitoring) High??Sensitivity??Troponin T Lipid Panel PT (INR) PTT T4 Free TSH Type and Screen Urinalysis w/hold for Urine Culture Brain MRI W/O Contrast CT Angio Head Hyperacute Stroke CT Angio Neck Hyperacute Stroke CT Head-Hyper Acute Stroke XR Chest 2 Views Frontal and Lat Primary Care Provider Sangeetha Sage MD Advance Directive Health Care Proxy on File No Patient refuses to discuss Discharge Vitals Temperature: 98.2 DegF Height: 160 cm Pulse Rate: 60 bpm Weight: 52.5 kg Respiratory Rate: 17 br/min Body Mass Index: 20.51 kg/m2 Systolic Blood Pressure: 110 mm Hg Body surface area: 1.53 Diastolic Blood Pressure: 59 mm Hg ?? Oxygen Saturation: 99 % ?? Studies Pending All tests and labs ordered during this hospital stay have been completed unless listed below. Please discuss all pending results with your provider listed above in these instructions. ?? Add On Lab Order (Lab Add On Order) What to do next Instructions From Your Doctor Discharge Orders Scheduled Follow-Up Appointments Monday 10:45 AM EDT ?? Where: [address] [facility] [address] [place] [id number]- Status: Pending Monday 10:00 AM EDT ?? With: Jyoti Mojica MD Where: [facility] [employer] Oncology [address] [place] [address] 4th [place] [address] [place] [address]- Status: Pending You Need to Schedule the Following Appointments Follow Up with??Sangeetha Sage MD Where: [address] [place] [address]- Discharge Medications VALENTINO GARCIA :1945 Visit Date:09/27/2022 Medications: Please continue your medications until treatment is completed or stopped by your provider. Medications not listed below should be discontinued. Discuss any questions related to medications with your provider. What How Much When Instructions Next Dose Changed Alendronate (Fosamax 70 mg oral tablet) 1 tab(s) Oral Every 7 days Please resume home medication schedule. Changed [place]-3 Polyunsaturated Fatty Acids (Fish Oil) 1,000 Milligram Oral Daily at Bedtime Please resume home medication schedule. Changed Senna (Senokot 187 mg oral tablet) 2 tab(s) Oral Daily at Bedtime as needed for for constipation start if you start percocet ?? Please resume home medication schedule. Unchanged Aspirin 81 Milligram Oral Daily September 30, 2022 morning dose Unchanged Atenolol (Atenolol Tablet) 50 Milligram Oral Daily September 30, 2022 morning dose Unchanged Atorvastatin (atorvastatin 20 mg oral tablet) 1 tab(s) Oral Daily September 30, 2022 morning dose Unchanged Calcium And Vitamin D Combination (Oysco 500 with D 500 mg-200 intl units oral tablet) 1 tab(s) Oral Daily September 30, 2022 morning dose Unchanged Cholecalciferol (Vitamin D3 2000 intl units oral capsule) 1 capsule Oral Daily September 30, 2022 morning dose Unchanged Clopidogrel (Plavix 75 mg oral tablet) 1 tab(s) Oral Daily September 30, 2022 morning dose Unchanged Clotrimazole Topical (Clotrimazole 1% Topical) 1 dimitri Topically Twice a day as needed for Itch under breast. ?? as needed Unchanged Cyanocobalamin (Vitamin B-12 Inj) Please resume home medication schedule. Unchanged Docusate (Colace sodium 100 mg oral capsule) 1 capsule Oral Daily September 30, 2022 morning dose Unchanged Hydrocortisone Topical (HydroCORTisone 2.5% Topical) 1 dimitri Topically Twice a day as needed for Itch on face and neck ?? as needed Unchanged Levothyroxine (levothyroxine 0.088 mg oral tablet) 1 tab(s) Oral Daily September 30, 2022 morning dose Unchanged Lisinopril (lisinopril 20 mg oral tablet) 1 tab(s) Oral Daily September 30, 2022 morning dose Unchanged Polyethylene Glycol 3350 (MiraLax oral powder for reconstitution) 17 gram Oral Daily dissolve in water before taking ?? September 30, 2022 morning dose Unchanged Tamsulosin (tamsulosin 0.4 mg oral capsule) 1 capsule Oral Daily September 30, 2022 morning dose ?? What How Much When Comments Stop Taking Acetaminophen (Tylenol Tablet) 650 Milligram Oral Every 4 hours Stop Taking Amlodipine 10 Milligram Oral Daily at Bedtime Stop Taking Ascorbic Acid (Vitamin C) 1,000 Milligram Oral Daily Stop Taking Calcium Carbonate (Oysco 500) Oral Daily in the morning Stop Taking Cranberry 500mgs Daily Stop Taking fluticasone-vilanterol (Breo Ellipta 100 mcg-25 mcg/ inh inhalation powder) 1 puff(s) Inhalation Daily Stop Taking Ibuprofen Stop Taking Multivitamin (Multivitamin Tablet) 1 tab(s) Oral Daily Stop Taking Ocular Lubricant (Artificial Tears 1.4%) Both eyes 3 times a day Stop Taking Omeprazole (Prilosec OTC) 20 Milligram Oral Twice a day Stop Taking Oxycodone (oxyCODONE 5 mg oral tablet) 1 tab(s) Oral Every 6 hours as needed for Pain TAKE 1-2 EVERY 6 HOURS FOR ACUTE PELVIC FRACTURE ?? Stop Taking Paroxetine (Paxil Tablet) 40 Milligram Oral Daily at Bedtime Stop Taking Sulfamethoxazole/ Trimethoprim (Bactrim DS 800 mg-160 mg oral tablet) 1 tab(s) Oral Twice a day Duration: 3 Days Stop Taking umeclidinium (Incruse Ellipta 62.5 mcg/ inh inhalation powder) Inhalation Every 24 hours Stop Taking Vitamin E (Vitamin E Capsule) 400 International Unit Oral Daily Test Results Below is a partial list of the most recent Laboratory test results done prior to this discharge. You may have had other tests and procedures not included in this list. Please discuss all test resultswith your provider. Est Creatinine Clearance - 76.68 mL/min (09/27/2022) AST (09/27/2022) ???AST (SGOT) - 23 units/L Basic Metabolic Panel (09/27/2022) ???Sodium - 140 mmol/L???Potassium - 4.1 mmol/L???Chloride - 105 mmol/L???Bicarbonate Level - 23 mmol/L???Anion Gap - 12???Glucose Level - 93 mg/dL???BUN - 13 mg/dL???Creatinine-Blood - 0.5 mg/dL???Estimated GFR Creatinine - 98 ML/MIN/1.73 M2???Calcium - 9.5 mg/dL CBC w/ Differential (09/27/2022) ???WBC - 8.0 k/mm3???RBC - 5.04 m/mm3???Hgb - 12.1 Gm/dL???Hct - 39.1 %???MCV - 77.6 femtoliters???MCH - 24.0 pg???MCHC - 30.9 g/dL???Platelet Count - 242 k/mm3???RDW-SD - 59.7 femtoliters???MPV - 10.1 femtoliters???Nucleated RBC (Automated) - 0.0 #/100 WBC'S???Abs. NRBC - 0.0 k/mm3???Abs. Neut - 6.0 k/mm3???Abs. Lymph - 1.3 k/mm3???Abs. Bergen - 0.5 k/mm3???Abs. Eo - 0.2 k/mm3???Abs. Baso - 0.0 k/mm3???Neut % - 74.7 %???Lymph % - 16.1 %???Bergen % - 6.1 %???Eos % - 2.9 %???Baso % - 0.1 %???Imm Gran - 0.1 %???Abs. Imm Gran - 0.0 k/mm3 COVID-19 (Novel Coronavirus), Rapid PCR (09/27/2022) ???COVID-19 by RT-PCR - NEGATIVE CRP (09/28/2022) ? ?C-Reactive Protein - <0.3 mg/dL ESR (09/28/2022) ? ?Sed Rate - <2 mm/hr GLUCOSE POC (09/27/2022) ???Glucose, POC - 105 mg/dL Hgb A1C (Monitoring) (09/28/2022) ???Hemoglobin A1C (Monitoring) - 5.6 % High??Sensitivity??Troponin T (09/27/2022) ???High Sensitivity Troponin (HSTnT) - 12 ng/L Lipid Panel (09/28/2022) ???Cholesterol - 128 mg/dL???Triglycerides - 120 mg/dL???HDL Cholesterol - 42 mg/dL???LDL Cholesterol - 62 mg/dL???Non HDL Cholesterol - 86 mg/dL PT (INR) (09/27/2022) ???INR - 1.0???Protime (PT) - 10.3 seconds PTT (09/27/2022) ? ?APTT - <22.0 seconds T4 Free (09/28/2022) ???Free T4 - 1.21 ng/dL TSH (09/28/2022) ???TSH - 0.75 uIU/mL Type and Screen (09/27/2022) ???Blood Type - A Positive???Antibody Screen - Negative Urinalysis w/hold for Urine Culture (09/27/2022) ???Appear/Color, Urine - LIGHT YELLOW???Specific [place], Urine - 1.035???pH, Urine - 6.5???Albumin, Urine - NEGATIVE???Glucose, Urine - NEGATIVE???Ketones, Urine - NEGATIVE???Bilirubin, Urine - NEGATIVE???Hemoglobin, Urine - NEGATIVE???Nitrite, Urine - NEGATIVE???Leukocyte, Urine - 3+???Urobilinogen - NORMAL???WBC's, Urine - 65 /HPF???RBC's, Urine - 2 /HPF???Bacteria - MODERATE???Squamous Epith - 6 /HPF? ?Transitional Epith - <1 /HPF? ?Hold Urine Culture - Testing available 48 hours from time of collection. 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 Constipation?? Depression?? Diabetes mellitus type 2?? Gastritis?? GERD - Gastro-esophageal reflux disease?? Hypercholesterolemia?? Hypertension?? Hypothyroid?? Irritable bowel?? Osteoporosis?? Ovarian mass?? Stroke?? Thyroid nodule?? Education Materials Below is the list of Educational Leaflet Providered with your Discharge Instructions. Valuables and Belongings I fully understand and agree that [facility] accepts no responsibility for all my personal property including clothing, toilet articles, radios, jewelry, dentures, hearing aids, rings, money, or any other property that is in my possession or is brought to me after admission. I understand certain valuables may be placed in a hospital safe for a short period of time. I understand that the hospital is not liable for loss or damage due to accident, fire, or other natural occurrence while said property is in the safe. I accept full responsibility for any personal property that I keep with me, and will not hold the hospital responsible in case of loss or disappearance. I acknowledge that i have been encouraged to send valuables and belongings home. ?? No Valuables/Belongings: No valuables/belongings present Review of Valuable and Belonging List: With patient, With witness Date for Pt to Sign Valuables/Belongings: 09/27/22 14:36:00 ?? Other Discharge Information ? Case Management Discharge Plan?? Discharge Plan?? Discharge Agency Information?? Discharge Level of Care at Discharge: Homehealth/VNA Name of Agency [facility]1: [facility]Hospice/Home Care: [facility] [phone] Service Categories #1: Physical Therapy, Assisted ?? Service Comments #1: [facility] will resume services at time of discharge. they will reach out [facility] to set up times for homecare visits. ?? Pulmonary Rehab Status?? Pulmonary Rehab Discharge Status?? Respiratory Rate: 17 br/min ? Common Emergency Awareness Tips IS IT A STROKE? Act FAST and Check for these signs: FACE Does the face look uneven? ARM Does one arm drift down? SPEECH Does their speech sound strange? TIME Call at any sign of stroke ?? Heart Attack Signs Chest discomfort: Most heart attacks involve discomfort in the center of the chest and lasts more than a few minutes, or goes away and comes back. It can feel like uncomfortable pressure, squeezing, fullness or pain. Discomfort in upper body: Symptoms can include pain or discomfort in one or both arms, back, neck, jaw or stomach. Shortness of breath: With or without discomfort. Other signs: Breaking out in a cold sweat, nausea, or lightheaded. Remember, MINUTES DO MATTER. If you experience any of these heart attack warning signs, call to get immediate medical attention! ?? Smoking can increase your chances of developing chronic health problems and can cause harmful effects to other family members in your house. If you smoke, you are strongly encouraged to quit. Please call [facility] at [phone] or [phone] ([phone]) or log in to [email or web address] for referrals to smoking cessation programs. ?? 975 Suicide & Crisis Lifeline is available 05/09 if you or someone you know needs to find a reason to keep living. By calling 206 you'll be connected to a skilled, trained counselor at a crisis center in your area. INPATIENT DISCHARGE INSTRUCTIONS SIGNATURE PAGE VALENTINO GARCIA Location:[facility] Registration Date and Time:09/27/2022 09:19 EDT Primary Care Physician: Sangeetha Sage MD, Attending Physician: Linda BELLO, Sugar, I VALENTINO GARCIA, have received the above patient education materials/instructions and have verbalized understanding. If ambulance or transport services are being used I further acknowledge being given a choice of service. ?? If you need to contact me, please call me at this number: . Patient/Certified Orthotist/Pedorthist Name: Patient/Certified Orthotist/Pedorthist Signature: Relationship to Patient: Witness Name/Signature: Date: Patient Care team information Care Team Personnel Name: Ilsa Harden LPN Position: [facility] RN Member Role: Primary Care Nurse Name: Cordelia Clay RN Position: [facility] RN Member Role: Primary Care Nurse Name: Nga Hsu RN Position: [facility] RN Member Role: Primary Care Nurse Name: Sangeetha Sage MD Position: [facility] Physician - Primary Care Member Role: PCP Address: Address: [address] [place] [id number]- Name: Aura Ta LPN Position: [facility] RN Member Role: Primary Care Nurse Name: Leticia Mcginnis RN Position: [facility] ED RN W/OE and Tasks Member Role: Patient Care Provider Name: Frances Barrett MD Position: [facility] Resident Member Role: ED Resident Address: Address: [address] [place] [address] [place] [address]- Name: Aura Puckett Position: [facility] ED TA [facility] Member Role: Patient Care Provider Name: Calin Stephenson MD Position: [facility] ED Medicine MD Member Role: ED Attending Physician Address: Address: [address] [place] [address]- Care Team Related Persons Name: NICANOR MORTENSEN Address: home [address] [place] [address] Name: SHERMAN SWAIN
--- OUTSIDE RECORDS SUMMARY | 2023-09-20 14:25 | XMS_ITS | Summary of Care ---
Author Organization [facility] Address [address] [place] [address]- Encounter 03/17/17 - 04/04/17 [facility] [address] [place] [address]- Discharge Diagnosis: Depression Discharge Diagnosis: GERD - Gastro-esophageal reflux disease Discharge Diagnosis: CAD - Coronary artery disease Discharge Diagnosis: Fracture of inferior pubic ramus Discharge Diagnosis: DM - Diabetes mellitus Discharge Diagnosis: Back pain Discharge Diagnosis: Hypothyroidism Discharge Diagnosis: HLD - Hyperlipidaemia Attending Physician: Briseyda Buckley MD Vital Signs Most recent to oldest [Reference Range]: 1 2 3 Temperature Oral F [96.4-99.1 DegF] 96.7 DegF (04/04/17 6:02 AM) 97 DegF (04/03/17 5:35 PM) 97.6 DegF (04/03/17 6:16 AM) Peripheral Pulse Rate [60-100 bpm] 60 bpm (04/04/17 6:02 AM) 73 bpm (04/03/17 7:34 PM) 62 bpm (04/03/17 5:35 PM) Respiratory Rate [14-20 br/min] 18 br/min (04/04/17 6:02 AM) 16 br/min (04/03/17 5:35 PM) 18 br/min (04/03/17 6:16 AM) Blood Pressure [90-140/60-90 mmHg] 93/52mmHg (04/03/17 7:34 PM) 93/52mmHg (04/03/17 7:34 PM) Systolic Blood Pressure [90-140 mmHg] 105 mmHg (04/04/17 6:02 AM) Diastolic Blood Pressure [60-90 mmHg] 56 mmHg *LOW* (04/04/17 6:02 AM) Diastolic Blood Pressure with Activity [60-90 mmHg] 67 mmHg (03/20/17 10:00 AM) Peripheral Pulse Rate with Activity 65 bpm (03/20/17 10:00 AM) Systolic Blood Pressure with Activity [90-140 mmHg] 100 mmHg (03/20/17 10:00 AM) Vital Signs Additional Information sitting eating breakfast in w/c (03/18/17 7:00 AM) Temperature Oral [35.8-37.3 DegC] 35.9 DegC (04/04/17 6:02 AM) 36.1 DegC (04/03/17 5:35 PM) 36.4 DegC (04/03/17 6:16 AM) Problem List Condition Effective Dates Status Health Status Inform ant Back pain(Confirmed) 1 Active CAD - Coronary artery disease(Confirmed) Active Depression(Confirmed) Active DM - Diabetes mellitus(Confirmed) Active Fracture of inferior pubic ramus(Confirmed) 2 Active GERD - Gastro-esophageal ref lux disease(Confirmed) Active HLD - Hyperlipidaemia(Confirmed) Active Hypothyroidism(Confirmed) Active Ovarian cyst(Confirmed) 3 Active UTI - Lower urinary tract infection(Confirmed) Active 1lumbar 2left 3left Allergies, Adverse Reactions, Alerts Substance Reaction Severity Status Darvon Active Medications acetaminophen 325 mg oral tablet 650 mg = 2 tab, Tab, Oral, q6hr, 0 Refill(s) Start Date: 03/29/17 Status: Ordered alendronate 70 mg oral tablet 70 mg = 1 tab, Tab, Oral, qTHU, 5 tab, 0 Refill(s), Print Requisition Start Date: 03/29/17 Status: Ordered amLODIPine 10 mg oral tablet 10 mg = 1 tab, Tab, Oral, QHS, 30 tab, 0 Refill(s), Print Requisition Start Date: 03/29/17 Status: Ordered ascorbic acid 500 mg oral tablet 1,000 mg = 2 tab, Tab, Oral, Daily, 0 Refill(s) Start Date: 03/29/17 Status: Ordered aspirin 81 mg oral delayed release tablet 81 mg = 1 tab, Tab-EC, Oral, QHS, 0 Refill(s) Start Date: 03/29/17 Status: Ordered atenolol 50 mg oral tablet 50 mg = 1 tab, Tab, Oral, BID, 60 tab, 0 Refill(s), Print Requisition Start Date: 03/29/17 Status: Ordered atorvastatin 20 mg oral tablet 20 mg = 1 tab, Tab, Oral, Daily, 30 tab, 0 Refill(s), Print Requisition Start Date: 03/29/17 Status: Ordered Breo Ellipta 100 mcg-25 mcg inhalation powder 1 puff, Powder, INH, Daily, 1 EA, 0 Refill(s), Print Requisition Start Date: 03/29/17 Status: Ordered cranberry oral tablet 450 mg, Tab, Oral, Daily, 0 Refill(s) Start Date: 03/29/17 Status: Ordered Fish Oil 2,000 mg = 2 cap, Cap, Oral, QHS, 0 Refill(s) Start Date: 03/29/17 Status: Ordered Incruse Ellipta 62.5 mcg/inh inhalation powder 62.5 mcg, 1 puff, Powder, INH, Daily, 1 EA, 0 Refill(s), Print Requisition Start Date: 03/29/17 Stop Date: 04/28/17 Status: Ordered levothyroxine 88 mcg (0.088 mg) oral tablet 88 mcg = 1 tab, Tab, Oral, Daily, 30 tab, 0 Refill(s), Print Requisition Start Date: 03/29/17 Status: Ordered Os-Glenn 500 + D 1 tab, Tab, Oral, BID, 0 Refill(s) Start Date: 03/29/17 Status: Ordered oxyCODONE 5 mg oral tablet 10 mg = 2 tab, Tab, Oral, q4hr PRN, 84 tab, 0 Refill(s), Dispense: 7 day, PAIN (Scale 4-10), Stop date 04/05/17 15:56:00 EST, Print Requisition Start Date: 03/29/17 Stop Date: 04/05/17 Status: Ordered pantoprazole 40 mg oral delayed release tablet 40 mg = 1 tab, Tab-DR, Oral, QHS, 30 tab, 0 Refill(s), Print Requisition Start Date: 03/29/17 Status: Ordered PARoxetine 40 mg oral tablet 40 mg = 1 tab, Tab, Oral, QHS, 30 tab, 0 Refill(s), Print Requisition Start Date: 03/29/17 Status: Ordered risperiDONE 0.25 mg oral tablet 0.5 mg = 2 tab, Tab, Oral, QHS, 60 tab, 0 Refill(s), Print Requisition Start Date: 03/29/17 Status: Ordered senna 8.6 mg oral tablet 8.6 mg = 1 tab, Tab, Oral, qAM PRN, 0 Refill(s), Constipation Start Date: 03/29/17 Status: Ordered Theragran-M 1 tab, Tab, Oral, QLUNCH, 0 Refill(s) Start Date: 03/29/17 Status: Ordered vitamin E 400 intl units oral capsule 400 IntlUnit = 1 cap, Cap, Oral, Daily, 0 Refill(s) Start Date: 03/29/17 Status: Ordered Results LABORATORY Most recent to oldest [Reference Range]: 1 2 3 Glucose POC RALS [74-106 mg/dL] 108 mg/dL *HI* (04/04/17 5:47 AM) 128 mg/dL *HI* (04/03/17 4:23 PM) 132 mg/dL *HI* (04/03/17 5:32 AM) Estimated Creatinine Clearance 41.43 mL/min (04/04/17 10:07 AM) 41.43 mL/min (04/04/17 5:59 AM) 41.43 mL/min (04/03/17 6:19 AM) Creatinine Level 0.56 mg/dL (03/28/17 11:15 AM) 0.44 mg/dL (03/25/17 12:02 PM) 0.45 mg/dL (03/18/17 2:09 PM)
--- OUTSIDE RECORDS SUMMARY | 2023-09-20 14:25 | XMS_ITS | Continuity of Care Document ---
Author Organization [facility] [employer] [facility] [facility] Address [address] [place] [phone]- Care Team Providers Care Coke Worker Name Role Phone Sangeetha Sage MD Primary Care Physician Encounter [facility] ACCT R [id number] Date(s): 10/31/22 - 11/30/22 [facility] [employer] Oncology [address] [place] [id number]- Attending Physician: Arleen Werner Admitting Physician: AdmtrArleen Referring Physician: Admtr, ArGama Allergies, Adverse Reactions, Alerts Substance Reaction Severity Status metformin rash Active Darvon swelling Active Medications Aspirin 81, mg, By Mouth, Daily, 0, 0, 09/30/07 16:30:11, Print SVETLANA Number, [id number], Constant Indicator Start Date: 09/30/07 Status: Ordered Atenolol Tablet 50 mg, By Mouth, Daily, [...] 1 tablet = 70 mg, By Mouth, 0 Refills, Maintenance, 10/31/22 10:33:00 EDT, Partial fill upon patient request if the prescription is for a schedule II opioid drug. Start Date: 10/31/22 Status: Ordered Fosamax 70 mg oral tablet [...] Start Date: 09/29/22 Status: Ordered Oysco 500 = 1,250 mg, By Mouth, 3 times a day, 0 Refills, Maintenance, 10/31/22 10:32:00 EDT, Partial fill upon patient request if the prescription is for a schedule II opioid drug. Start Date: 10/31/22 Status: Ordered Oysco 500 with D 500 [...] Stroke Confirmed Active Thyroid nodule Confirmed Active Social History Social History Type Response Smoking Status Former smoker, quit more than 30 days ago entered on: 10/31/18 Sex Patient Care team information Care Team Personnel Name: Ilsa Harden LPN Position: [facility] RN Member Role: Primary Care Nurse Name: Cordelia Clay RN Position: [facility] RN Member Role: Primary Care Nurse Name: Nga Hsu RN Position: [facility] RN Member Role: Primary Care Nurse Name: Sangeetha Sage MD Position: [facility] Physician - Primary Care Member Role: PCP Address: Address: [address] [place] [id number]- Name: Aura Ta LPN Position: [facility] RN Member Role: Primary Care Nurse Care Team Related Persons Name: NICANOR MORTENSEN DIRECTOR Address: home [address] [place] [address] Name: SHERMAN SWAIN
--- OUTSIDE RECORDS SUMMARY | 2023-09-20 14:25 | XMS_ITS | Continuity of Care Document ---
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 Name Role Phone Chu BELLO, Sangeetha Connolly Primary Care Physician En[place] [facility] [place] Date(s): 02/16/23 - 02/18/[address] [id number] Discharge Disposition: A-D/C Home Attending Physician: Etta Torrez MD Admitting Physician: Austin BELLO, Uriah Gage Referring Physician: Not on Staff, Referring MD Allergies, Adverse Reactions, Alerts Substance Reaction Severity Status metformin rash Active Darvon swelling Active Medications Atenolol Tablet 50 mg, Tablet, By Mouth, 02/18/23 9:00:00 EST Start Date: 02/18/23 Stop Date: 02/18/23 Status: Completed Atenolol Tablet 50 mg, By Mouth, Daily, Refills 0, Tot. Refills 0, 09/30/07 16:30:25 EDT Start Date: 09/30/07 Status: Ordered atorvastatin 20 mg oral tablet 1 tablet = 20 mg, By Mouth, Daily, 0 Refills, Maintenance Start Date: 07/07/17 Status: Ordered Colace sodium 100 mg oral capsule 100 mg, 1, capsule, By Mouth, Daily, # 20 capsule, Refills 0, Maintenance, 09/27/22 13:43:00 EDT, Partial fill upon patient request if the prescription is for a schedule II opioid drug. Start Date: 09/27/22 Status: Ordered docusate sodium 100 mg oral tablet 1 tablet = 100 mg, By Mouth, 2 times a day, PRN for constipation, HOLD IF HAVING LOOSE STOOL, # 60 tablet, 0 Refills, Maintenance, 02/18/23 11:32:00 EST, Tablet, [facility], Partial fill upon patient request if the prescription is for a... Start Date: 02/18/23 Status: Ordered Fish Oil = 1,000 mg, [...] oral tablet 20 mg, Tablet, By Mouth, 02/18/23 9:00:00 EST Start Date: 02/18/23 Stop Date: 02/18/23 Status: Completed lisinopril 20 mg oral tablet 20 mg, 1, tablet, By Mouth, Daily, # 30 tablet, Refills 0, Maintenance, 09/27/22 13:42:00 EDT, Partial fill upon patient request if the prescription is for a schedule II opioid drug. Start Date: 09/27/22 Status: Ordered MiraLax oral powder for reconstitution = 17 Gm, By Mouth, Daily, dissolve in 4 to 8 oz of beverage HOLD IF HAVINF LOOSE STOOL, # 238 Gm, 0Refills, Maintenance, 02/18/23 11:32:00 EST, REC Powder, [facility], Partial fill upon patient request if the prescription is for a sc... Start Date: 02/18/23 Status: Ordered Oysco 500 = 1,250 mg, By Mouth, 3 times a day, 0 Refills, Maintenance, 10/31/22 10:32:00 EDT, Partial fill upon patient request if the prescription is for a schedule II opioid drug. Start Date: 10/31/22 Status: Ordered Plavix 75 mg oral tablet 75 mg, 1, tablet, By Mouth, Daily, # 30 tablet, Refills 3, Tot. Refills 3, Maintenance, 02/17/23 15:56:00 EST, Route to Pharmacy Electronically, [facility], Partial fill upon patient request if the prescription is for a schedule II opioi... Start Date: 02/17/23 Status: Ordered senna 187 mg oral tablet 2 tablet = 17.2 mg, By Mouth, Daily, PRN as needed for constipation, # 30 tablet, 0 Refills, Maintenance, 02/18/23 11:32:00 EST, Tablet, [facility], Partial fill upon patient request ifthe prescription is for a schedule II opioid drug.,... Start Date: 02/18/23 Status: Ordered tamsulosin 0.4 mg oral capsule 0.4 mg, 1, capsule, By Mouth, Daily, # 30 capsule, Refills 0, Maintenance, 09/27/22 13:45:00 EDT, Partial fill upon patient request if the prescription is for a schedule II opioid drug. Start Date: 09/27/22 Status: Ordered Vitamin D3 2000 intl units [...] Confirmed Active Thyroid nodule Confirmed Active Results Radiology Reports * Exam Date Time Procedure Performing Provider Status 02/16/23 9:[address] Abd/Pelvis W/ IV Contrast Only Larisa Coleman; Auth (Verified) Notes: (CT Abd/Pelvis W/ IV Contrast Only) Reason For Exam: RLQ abdominal pain;Other: RESULT: CT Abd/Pelvis W/ IV Contrast Only CT Abd/Pelvis W/ IV Contrast Only Reason: Other:; RLQ abdominal pain; Clinical Question(s): Appendicitis; TECHNIQUE: Spiral CT through the abdomen and pelvis with IV contrast formatted in 3 planes. 100 cc of Omnipaque 300 was administered intravenously. This study was performed without oral contrast. Weight-based protocol using automatic tube modulation was used to optimize exposure parameters. COMPARISON: 03/16/2017 FINDINGS: The heart is normal in size. Coronary arterial calcification is present. Ectasia of the ascending aorta measuring up to 3.9 cm is seen. There is no pericardial effusion. Linear scar within the lingula is noted. The lung bases are otherwise unremarkable. The liver is unremarkable. Cholelithiasis is seen without evidence of cholecystitis. The spleen, pancreas, and adrenal glands are unremarkable. Symmetric renal contrast enhancement is demonstrated bilaterally. Multiple less than 0.5 cm hypodensities are seen within both kidneys, too small to characterize but statistically likely to representcysts, not requiring further follow-up. No hydronephrosis is present. The bladder is markedly distended and grossly unremarkable. The uterus appears to be present. There has been interval increase insize of the fluid attenuation left adnexal lesion with calcifications in the wall. It currently measures 8.8 x 7.2 cm (image 106), previously 7.7 x 5.5 cm. No peritoneal implants are seen. A large hiatal hernia is noted. The appendix is not identified, however, there is no pericecal inflammatory change to suggest the presence of appendicitis. A large stool burden is seen throughout thecolon without obstruction. There is no free air, free fluid, or lymphadenopathy. An anterior abdominal wall hernia mesh is present. A healed left inferior pubic ramus fracture is noted. Multilevel degenerative disc disease is seen. IMPRESSION: There is no evidence of appendicitis. Large stool burden without obstruction. Increasing left adnexal lesion. Nonemergent surgical consultation is recommended. An actionable message (Yellow) has been communicated via the [employer] system on 02/16/2023 9:30 AM, Message ID [id number]. WSN: [id number] Ordering Physician: Robe Whelan Dictated By: Ericka Wallace MD Dictated Date/Time: 02/16/23 9:30 am Reviewed By: Ericka Wallace MD Signed By: Ericka Wallace MD Signed Date/Time: 02/16/23 9:30 am Transcribed By: DAYO Transcribed Date/Time: 02/16/23 9:26 am * Exam Date Time Procedure Performing Provider Status 02/16/23 9:[address] Angio Neck Hyperacute Stroke Larisa Koehler; Auth (Verified) Notes: (CT Angio Neck Hyperacute Stroke) Reason For Exam: Aneurysm, neck vessel(s);Other: RESULT: CT Angio Neck Hyperacute Stroke CT Angio Head Hyperacute Stroke, CT Angio Neck Hyperacute Stroke Reason: Other:; Stroke; Clinical Question(s): Other:; Hematoma Aneurysm / Other: [...] to optimize exposure parameters. RADIATION DOSE PARAMETERS: COMPARISON: Noncontrast CT head performed concurrently. CTA of the head and neck 09/27/2022 FINDINGS: CTA OF THE NECK: Arch: There is a three vessel aortic arch. There is mild atherosclerotic plaque of the aortic arch,but origins of the supra aortic vessels are patent. Right carotid system: The right common carotid artery is tortuous and extends to the superficial midline anterior to the trachea. The right common carotid artery is patent. Calcification of the rightcarotid bulb and proximal right ICA. The cervical right ICA is patent (0% stenosis. Left carotid system: The common carotid and cervical internal carotid arteries are patent. There iscalcified atherosclerotic plaque at the carotid bifurcation, but no ICA stenosis (0%) by NASCET criteria. There is a right-dominant vertebral artery system. Right vertebral: Patent. Left vertebral: Patent. Other: Soft tissues and bones: No evidence of lymphadenopathy or mass. A 1.9 cm peripherally-calcified left thyroid nodular lesion is present. Visualized lung apices are clear. Severe degenerative changes of the right glenohumeral joint space. Lobular calcification medial to the coracoid process which mayrepresent a joint space loose body. Degenerative changes of the cervical spine. Osteopenia. CTA OF THE HEAD: Anterior circulation: Bilateral intracranial ICAs demonstrate atherosclerotic calcification, without stenosis. Bilateral GIOVANNA and MCA branches are patent. There is no significant stenosis, proximal cutoff, aneurysm, or vascular malformation. Posterior circulation: Bilateral intracranial vertebral arteries, the basilar artery, and bilateralsuperior cerebellar and posterior cerebral artery branches are patent. Veins: Major dural venous sinuses are patent. Other: Soft tissues and bones: Chronic right basal ganglia and left thalamic lacunar infarcts. Patchy regions of diminished density within the supratentorial white matter are present. These are nonspecific,but are compatible with chronic microangiopathic/small vessel ischemic change. Orbits are unremarkable. No significant opacification in the paranasal sinuses or mastoid air cells. IMPRESSION: 1. No acute intracranial large vessel occlusion. 2. No hemodynamically-significant stenosis of the extracranial internal carotid and vertebral arteries. 3. 19 mm peripherally-calcified left thyroid gland lesion. This meets size criteria for thyroid sonography for ACR white paper guidelines. WSN: [id number] Ordering Physician: Robe Whelan Dictated By: Froilan Olmos MD Dictated Date/Time: 02/16/23 9:40 am Reviewed By: Froilan Olmos MD Signed By: Froilan Olmos MD Signed Date/Time: 02/16/23 9:40 am Transcribed By: DAYO Transcribed Date/Time: 02/16/23 9:24 am * Exam Date Time Procedure Performing Provider Status 02/16/23 9:[address] Angio Head Hyperacute Stroke Larisa Koehler; Rianna (Verified) Notes: (CT Angio Head Hyperacute Stroke) Reason For Exam: Stroke;Other: RESULT: CT Angio Head Hyperacute Stroke CT Angio Head Hyperacute Stroke, CT Angio Neck Hyperacute Stroke Reason: Other:; Stroke; Clinical Question(s): Other:; Hematoma Aneurysm / Other: [...] to optimize exposure parameters. RADIATION DOSE PARAMETERS: COMPARISON: Noncontrast CT head performed concurrently. CTA of the head and neck 09/27/2022 FINDINGS: CTA OF THE NECK: Arch: There is a three vessel aortic arch. There is mild atherosclerotic plaque of the aortic arch,but origins of the supra aortic vessels are patent. Right carotid system: The right common carotid artery is tortuous and extends to the superficial midline anterior to the trachea. The right common carotid artery is patent. Calcification of the rightcarotid bulb and proximal right ICA. The cervical right ICA is patent (0% stenosis. Left carotid system: The common carotid and cervical internal carotid arteries are patent. There iscalcified atherosclerotic plaque at the carotid bifurcation, but no ICA stenosis (0%) by NASCET criteria. There is a right-dominant vertebral artery system. Right vertebral: Patent. Left vertebral: Patent. Other: Soft tissues and bones: No evidence of lymphadenopathy or mass. A 1.9 cm peripherally-calcified left thyroid nodular lesion is present. Visualized lung apices are clear. Severe degenerative changes of the right glenohumeral joint space. Lobular calcification medial to the coracoid process which mayrepresent a joint space loose body. Degenerative changes of the cervical spine. Osteopenia. CTA OF THE HEAD: Anterior circulation: Bilateral intracranial ICAs demonstrate atherosclerotic calcification, without stenosis. Bilateral GIOVANNA and MCA branches are patent. There is no significant stenosis, proximal cutoff, aneurysm, or vascular malformation. Posterior circulation: Bilateral intracranial vertebral arteries, the basilar artery, and bilateralsuperior cerebellar and posterior cerebral artery branches are patent. Veins: Major dural venous sinuses are patent. Other: Soft tissues and bones: Chronic right basal ganglia and left thalamic lacunar infarcts. Patchy regions of diminished density within the supratentorial white matter are present. These are nonspecific,but are compatible with chronic microangiopathic/small vessel ischemic change. Orbits are unremarkable. No significant opacification in the paranasal sinuses or mastoid air cells. IMPRESSION: 1. No acute intracranial large vessel occlusion. 2. No hemodynamically-significant stenosis of the extracranial internal carotid and vertebral arteries. 3. 19 mm peripherally-calcified left thyroid gland lesion. This meets size criteria for thyroid sonography for ACR white paper guidelines. WSN: [id number] Ordering Physician: Robe Whelan Dictated By: Froilan Olmos MD Dictated Date/Time: 02/16/23 9:40 am Reviewed By: Froilan Olmos MD Signed By: Froilan Olmos MD Signed Date/Time: 02/16/23 9:40 am Transcribed By: DAYO Transcribed Date/Time: 02/16/23 9:24 am * Exam Date Time Procedure Performing Provider Status 02/16/23 9:[address] Head-Hyper Acute Stroke Larisa Childress; Auth (Verified) Notes: (CT Head-Hyper Acute Stroke) Reason For Exam: Neuro deficit, acute, stroke suspected;Other: RESULT: CT Head-Hyper Acute Stroke CT Head-Hyper Acute Stroke INDICATION: Reason: Other:; Neuro deficit, acute, stroke suspected; Clinical Question(s): Other:; Hematoma Infarction TECHNIQUE: Noncontrast head CT using axial technique and reconstructed in axial and coronal planes.Iterative reconstruction techniques are used to optimize dose and image quality. COMPARISON: 09/27/2022 FINDINGS: The visualized sinuses are free from disease. The ventricular system and subarachnoid spaces are within normal limits for the patient's age. A moderate degree of periventricular and deep subcortical white matter low-attenuation is noted, consistent with chronic small vessel ischemic change. The degree is similar to the prior study. There is no intracranial hemorrhage, mass effect, or midline shift. No intra or extra-axial fluid collections are identified. The visualized osseous structures are unremarkable. IMPRESSION: There is no acute intracranial abnormality. WSN: [id number] Ordering Physician: Robe Whelan Dictated By: Ericka Wallace MD Dictated Date/Time: 02/16/23 9:20 am Reviewed By: Ericka Wallace MD Signed By: Ericka Wallace MD Signed Date/Time: 02/16/23 9:20 am Transcribed By: DAYO Transcribed Date/Time: 02/16/23 9:18 am Vital Signs Most recent to oldest [Reference Range]: 1 2 3 Height 160 cm (02/18/23 10:50 AM) 160 cm (02/18/23 7:01 AM) 160 cm (02/17/23 5:58 PM) Weight 51.1 kg (02/18/23 12:00 AM) 52.4 kg (02/17/23 5:58 PM) 52.4 kg (02/17/23 11:48 AM) Oxygen Saturation [94-100 %] 97 % (02/18/23 10:50 AM) 99 % (02/18/23 7:01 AM) 98 % (02/18/23 5:00 AM) Pulse Rate [55-90 bpm] 72 bpm (02/18/23 10:50 AM) 73 bpm (02/18/23 8:02 AM) 73 bpm (02/18/23 7:01 AM) Body Mass Index [18.5-24.99 kg/m2] 20.47 kg/m2 (02/17/23 5:58 PM) 20.47 kg/m2 (02/17/23 11:48 AM) Blood Pressure [90-138/55-84 mm Hg] 131/77mm Hg (02/18/23 10:50 AM) 120/72mm Hg (02/18/23 8:03 AM) 120/72mm Hg (02/18/23 8:02 AM) Respiratory Rate [16-30 br/min] 19 br/min (02/18/23 10:50 AM) 17 br/min (02/18/23 7:01 AM) 18 br/min (02/18/23 5:00 AM) Temperature [96.8-100.4 DegF] 97.3 DegF (02/18/23 10:50 AM) 98.0 DegF (02/18/23 7:01 AM) 97.7 DegF (02/18/23 5:00 AM) Liters per Minute 2 L/min (02/16/23 9:09 AM) Mode of Delivery (Oxygen) Room air (02/18/23 10:50 AM) Room air (02/18/23 7:01 AM) Room air (02/18/23 5:00 AM) Blood pressure sites Arm, right (02/18/23 10:50 AM) Arm, left (02/18/23 7:01 AM) Arm, right (02/18/23 5:00 AM) Temperature Route Oral (02/18/23 10:50 AM) Oral (02/18/23 7:01 AM) Oral (02/18/23 5:00 AM) Dry Weight 52.4 kg (02/17/23 5:58 PM) 52.4 kg (02/17/23 11:48 AM) Social History Social History Type Response Smoking Status Former smoker, quit more than 30 days ago entered on: 10/31/18 Sex History and physical note * Austin BELLO, Uriah Gage: PERFORM Event Display: History and Physical Hospital Authored Date: [id number] Patient: ??VALENTINO GARCIA ? Age:??78 Years?Sex:??Female?:??1945?? Chief Complaint/Reason for Consultation slurred sppech at 3 am w/ lft facial droop, pt lives home alone, vna services daily. History of Present Illness ??78-year-old female with PMH significant for Left-sided Eddy's palsy, HTN, HLD, Diet controlled DM, prior right brain CVA s/p TPA, with more recent TIA (September 2022), ovarian mass, hypothyroidism, and thyroid nodule who presented as an acutes stroke for right sided weakness and altered speech. Last known well 3 AM. Patient states she was getting up to use the bathroom, having an episode of constipation, had difficulty moving her bowels, attempted self disimpaction, during that time she began noticing weakness on the right side of her face right side of her body and noted difficulty with speech. Patient additionally noted bleeding from the rectum that occurred while she was attempting to self disimpact.?She additionally noted slurred speech at this time. This morning, visiting staff noted right facial droop, and right sided weakness. Some confusion regarding Plavix, in which the patient reports she was told to stop her Plavix by a doctor, but has continued it regardless. LWK: 0300. BP: 115/85. POC: 144. In the ED, CT Head nonacute. CTA Head/Neck without LVO or high grade stenosis. Left thyroid lesion. Patient OOW for TNK, and no LVO for NEV intervention. She was also unable to void urine and ER inserted a underwood catheter. [facility] oncology also evaluated herin ER and suggested that her ovarian mass has been stable and it has nothing to do with her constipation. ?? She is being admitted for further stroke eval. Review of Systems Constitutional: No fever or chills. ENT: No sore throat or nasal congestion. Respiratory: No shortness of breath or cough??. Cardiovascular: No chest pain or??palpitation. Gastrointestinal: No nausea, vomiting or diarrhea, c/o constipation. Skin: No rash or lesion Neurology: slurred speech (improved now),??no vision problem, had right sided weakness now improved. Psychiatric: Cooperative, normal mood and affect Objective Vital Signs?? Temperature: 97.6 DegF (02/16/23 15:44:00) Temperature Route: Oral (02/16/23 15:44:00) Pulse Rate: 72 bpm (02/16/23 15:44:00) Respiratory Rate: 20 br/min (02/16/23 15:44:00) Systolic Blood Pressure: 128 mm Hg (02/16/23 15:44:00) Diastolic Blood Pressure: 74 mm Hg (02/16/23:44:00) Blood pressure sites: Arm, right (02/16/23:44:00) Mean Arterial Pressure: 95 mm Hg (02/16/23 09:38:00) Pulse Pressure: 30 mm Hg (02/16/23 09:38:00) Oxygen Saturation: 100 % (02/16/23:44:00) Liters per Minute: 2 L/min (02/16/23 09:09:00) Mode of Delivery (Oxygen): Room air (02/16/23 15:44:00) Early Warning Score: 2 (02/16/23 15:45:37) ? Physical Exam Awake, alert, oriented Lungs: Clear to auscultation bilateral, no wheezing no rales Heart: Regular rate and rhythm, no murmur, no rub or gallop Abdomen: Soft, nontender, nondistended; Bowel sounds present Extremity: No edema cyanosis clubbing Neurological: No focal deficit Psychiatric: Normal mood and affect Assessment/Plan Assessment:??78-year-old female with PMH significant for Left-sided Eddy's palsy, HTN, HLD, Diet controlled DM, prior right brain CVA s/p TPA, with more recent TIA (September 2022), ovarian mass, hypothyroidism, and thyroid nodule who presented as an acutes stroke for right sided weakness and altered speech. Last known well 3 AM. Patient states she was getting up to use the bathroom, having an episode of constipation, had difficulty moving her bowels, attempted self disimpaction, during that time she began noticing weakness on the right side of her face right side of her body and noted difficulty with speech. Patient additionally noted bleeding from the rectum that occurred while she was attempting to self disimpact.?She additionally noted slurred speech at this time. This morning, visiting staff noted right facial droop, and right sided weakness. Some confusion regarding Plavix, in which the patient reports she was told to stop her Plavix by a doctor, but has continued it regardless. LWK: 0300. BP: 115/85. POC: 144. In the ED, CT Head nonacute. CTA Head/Neck without LVO or high grade stenosis. Left thyroid lesion. Patient OOW for TNK, and no LVO for NEV intervention. She was also unable to void urine and ER inserted a underwood catheter. [facility] oncology also evaluated herin ER and suggested that her ovarian mass has been stable and it has nothing to do with her constipation. ?? She is being admitted for further stroke eval. ? Right sided weakness (R53.1):??. ?? Slurred speech (R47.81):??. ?? Transient ischemic attack (G45.9):??TIA vs possible small stroke ?? Neurology evaluated and appreciated recommendation ?? Plan: - NPO until swallow function cleared - Will resume Plavix Will continue statin ?? As per neurology there is no role for MRI Brain, as had a recent MRI and will not plant changer ?- May consider repeat CT Head if necessary, and if concern for stroke persists - q4hr neuro checks, VS, and telemetry monitoring - STAT CT head for any acute changes - DVT prophylaxis - ? Acute urinary retention (R33.8):??Cause unclear Already had Underwood upon arrival ?? Plan: Will give voiding trial in 24-48 hrs ? Chronic constipation (K59.09):??Will put on aggresisve bowel regime Scheduled senna and miralax If no BM, will need fleet enama ? 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 ??Currently asymptomatic ??Unlikely constipation and urinary retention is caused by this ? Already has [facility] plan to follow up outpatient on March 06, 2023. ? Thyroid nodule (E04.1):??Seen and CT neck, not new It was there during last admission and planned for out patient US ? Code Status:??DNR/DNI (confirmed with patient) ? DVT PPX: SQ Lovenox ?? Discharge Planning:? Histories Allergies Allergies ?(Active and Proposed Allergies [...] family history recorded. ? Medications Home Medications Alendronate (Fosamax 70 mg oral tablet)?1?tab(s)?70?Milligram?By Mouth?Every 7 days Alendronate (Fosamax 70 mg oral tablet)?1?tab(s)?70?Milligram?By Mouth Aspirin?81?Milligram?By Mouth?Daily Atenolol (Atenolol Tablet)?50?Milligram?By Mouth?Daily Atorvastatin (atorvastatin 20 mg oral tablet)?1?tab(s)?20?Milligram?By Mouth?Daily Calcium And Vitamin D Combination (Oysco 500 with D 500 mg-200 intl units oral tablet)?1?tab(s)?By Mouth?Daily Calcium Carbonate (Oysco 500)?1,250?Milligram?By Mouth?3 times a day Cholecalciferol (Vitamin D3 2000 intl units oral capsule)?1?capsule?50?Microgram?By Mouth?Daily Clopidogrel (Plavix 75 mg oral tablet)?75?Milligram?1?tablet?By Mouth?Daily Clotrimazole Topical (Clotrimazole 1% Topical)?1?dimitri?Topically?2 times a day?as needed?Itch?under breast. Docusate (Colace sodium 100 mg oral capsule)?100?Milligram?1?capsule?By Mouth?Daily Hydrocortisone Topical (HydroCORTisone ??2.5% Topical)?1?dimitri?Topically?2 times a day?as needed?Itch?on face and neck Levothyroxine (levothyroxine 0.088 mg oral tablet)?1?tab(s)?88?Microgram?By Mouth?Daily Lisinopril (lisinopril 20 mg oral tablet)?20?Milligram?1?tablet?By Mouth?Daily Friona-3 Polyunsaturated Fatty Acids (Fish Oil)?1,000?Milligram?By Mouth?Daily at bedtime Polyethylene Glycol 3350 (MiraLax oral powder for reconstitution)?17?gram?By Mouth?Daily?dissolve in water before taking Senna (Senokot 187 mg oral tablet)?2?tab(s)?17.2?Milligram?By Mouth?Daily at bedtime?as needed?for constipation?start if you start percocet Tamsulosin (tamsulosin 0.4 mg oral capsule)?0.4?Milligram?1?capsule?By Mouth?Daily ? Results Recent Labs BLOOD BANK Blood Type A Positive ()?? 02/16/2023 09:04 Antibody Screen Negative ()?? 02/16/2023 09:04 ?? BLOOD COUNT & DIFF WBC 6.3 k/mm3 ()?? 02/16/2023 09:18 RBC 4.48 m/mm3 ()?? 02/16/2023 09:18 Hgb 9.9 Gm/dL (Low)?? 02/16/2023 09:18 Hct 32.6 % (Low)?? 02/16/2023 09:18 MCV 72.8 femtoliters (Low)?? 02/16/2023 09:18 MCH 22.1 pg (Low)?? 02/16/2023 09:18 MCHC 30.4 g/dL (Low)?? 02/16/2023 09:18 Platelet Count 224 k/mm3 ()?? 02/16/2023 09:18 RDW-SD 45.2 femtoliters ()?? 02/16/2023 09:18 MPV 10.1 femtoliters ()?? 02/16/2023 09:18 Nucleated RBC (Automated) 0.0 #/100 WBC'S ()?? 02/16/2023 09:18 Abs. NRBC 0.0 k/mm3 ()?? 02/16/2023 09:18 Abs. Neut 4.6 k/mm3 ()?? 02/16/2023 09:18 Abs. Lymph 1.0 k/mm3 ()?? 02/16/2023 09:18 Abs. [place] 0.4 k/mm3 ()?? 02/16/2023 09:18 Abs. Eo 0.3 k/mm3 ()?? 02/16/2023 09:18 Abs. Baso 0.0 k/mm3 ()?? 02/16/2023 09:18 Neut % 72.6 % ()?? 02/16/2023 09:18 Lymph % 15.6 % ()?? 02/16/2023 09:18 [place] % 6.5 % ()?? 02/16/2023 09:18 Eos % 4.6 % ()?? 02/16/2023 09:18 Baso % 0.2 % ()?? 02/16/2023 09:18 Imm Gran 0.5 % ()?? 02/16/2023 09:18 Abs. Imm Gran 0.0 k/mm3 ()?? 02/16/2023 09:18 ?? CARDIAC High Sensitivity Troponin (HSTnT) 11 ng/L ()?? 02/16/2023 09:18 ?? CHEM GENERAL Sodium 139 mmol/L ()?? 02/16/2023 09:18 Potassium 3.8 mmol/L ()?? 02/16/2023 09:18 Chloride 105 mmol/L ()?? 02/16/2023 09:18 Bicarbonate Level 24 mmol/L ()?? 02/16/2023 09:18 Anion Gap 10 ()?? 02/16/2023 09:18 Glucose Level 126 mg/dL (High)?? 02/16/2023 09:18 Glucose, POC 144 mg/dL (High)?? 02/16/2023 09:00 BUN 17 mg/dL ()?? 02/16/2023 09:18 Creatinine-Blood 0.5 mg/dL ()?? 02/16/2023 09:18 Estimated GFR Creatinine 95 ML/MIN/1.73 M2 ()?? 02/16/2023 09:18 Calcium 8.5 mg/dL (Low)?? 02/16/2023 09:18 AST (SGOT) 15 units/L ()?? 02/16/2023 09:18 ?? COAG INR 1.0 ()?? 02/16/2023 09:18 Protime (PT) 11.0 seconds ()?? 02/16/2023 09:18 APTT <22.0 seconds (Low)?? 02/16/2023 09:18 ?? UA/URINALYSIS Appear/Color, Urine LIGHT YELLOW ()?? 02/16/2023 10:55 Specific [place], Urine 1.024 ()?? 02/16/2023 10:55 pH, Urine 6.5 ()?? 02/16/2023 10:55 Albumin, Urine NEGATIVE ()?? 02/16/2023 10:55 Glucose, Urine NEGATIVE ()?? 02/16/2023 10:55 Ketones, Urine NEGATIVE ()?? 02/16/2023 10:55 Bilirubin, Urine NEGATIVE ()?? 02/16/2023 10:55 Hemoglobin, Urine NEGATIVE ()?? 02/16/2023 10:55 Nitrite, Urine NEGATIVE ()?? 02/16/2023 10:55 Leukocyte, Urine 1+ (Abnormal)?? 02/16/2023 10:55 Urobilinogen NORMAL mg/dL ()?? 02/16/2023 10:55 WBC's, Urine 3 /HPF ()?? 02/16/2023 10:55 RBC's, Urine 1 /HPF ()?? 02/16/2023 10:55 Bacteria SLIGHT HPF (Abnormal)?? 02/16/2023 10:55 Squamous Epith <1 /HPF ()?? 02/16/2023 10:55 Hold Urine Culture Testing available 48 hours from time of collection. ()?? 02/16/2023 10:55 ? Hospital Progress note * Shauna BELLO, [facility]: PERFORM Event Display: Progress Note Hospital Authored Date: Patient: ??VALENTINO GARCIA ? Age:??78 Years?Sex:??Female?:??1945?? Subjective Patient states that she??feels better today with improvement in her??weakness as well as slurred speech.?? Believes that she is back to baseline. ??States that she had??urinary retention secondary tothe constipation??which she believes has resolved. ?? Review of Systems Negative. Objective Vital Signs?? Temperature: 98 DegF (02/17/23 11:48:00) Temperature Route: Oral (02/17/23 11:48:00) Pulse Rate: 63 bpm (02/17/23 11:48:00) Respiratory Rate: 17 br/min (02/17/23 11:48:00) Systolic Blood Pressure: 91 mm Hg (02/17/23 11:48:00) Diastolic Blood Pressure: 58 mm Hg (02/17/23 11:48:00) Blood pressure sites: Arm, right (02/17/23 11:48:00) Mean Arterial Pressure: 69 mm Hg (02/17/23 11:48:00) Pulse Pressure: 33 mm Hg (02/17/23 11:48:00) Oxygen Saturation: 99 % (02/17/23 09:09:00) Mode of Delivery (Oxygen): Room air (02/17/23 09:09:00) Early Warning Score: 1 (02/17/23 11:53:30) ? Intake/Output? 02/16 14:09 02/17 07:00 02/16 07:00 02/15 07:00 02/14 07:00 ?? 02/17 16:22 02/17 16:22 02/17 06:59 02/16 06:59 02/15 06:59 Intake ?0 ?0 ?0 ?0 ?0 Output ? 1370 ?0 ? 1370 ?0 ?0 Net Total ?-1370 ?0 ?-1370 ?0 ?0 ? Physical Exam Awake, alert, oriented Lungs: Clear to auscultation bilateral, no wheezing no rales Heart: Regular rate and rhythm, no murmur, no rub or gallop Abdomen: Soft, nontender, nondistended; Bowel sounds present Extremity: No edema cyanosis clubbing Neurological: No focal deficit Psychiatric: Normal mood and affect _ Home Medications Alendronate (Fosamax 70 mg oral tablet)?1?tab(s)?70?Milligram?By Mouth?Every 7 days Atenolol (Atenolol Tablet)?50?Milligram?By Mouth?Daily Atorvastatin (atorvastatin 20 mg oral tablet)?1?tab(s)?20?Milligram?By Mouth?Daily Calcium Carbonate (Oysco 500)?1,250?Milligram?By Mouth?3 times a day Cholecalciferol (Vitamin D3 2000 intl units oral capsule)?1?capsule?50?Microgram?By Mouth?Daily Clopidogrel (Plavix 75 mg oral tablet)?75?Milligram?1?tablet?By Mouth?Daily Docusate (Colace sodium 100 mg oral capsule)?100?Milligram?1?capsule?By Mouth?Daily Hydrocortisone Topical (HydroCORTisone ??2.5% Topical)?1?dimitri?Topically?2 times a day?as needed?Itch?on face and neck Levothyroxine (levothyroxine 0.088 mg oral tablet)?1?tab(s)?88?Microgram?By Mouth?Daily Lisinopril (lisinopril 20 mg oral tablet)?20?Milligram?1?tablet?By Mouth?Daily Friona-3 Polyunsaturated Fatty Acids (Fish Oil)?1,000?Milligram?By Mouth?Daily at bedtime Tamsulosin (tamsulosin 0.4 mg oral capsule)?0.4?Milligram?1?capsule?By Mouth?Daily ? Inpatient Medications Medications (16) Active SCHEDULED: (10) Atenolol 50 mg Tablet (Atenolol Tablet) ??50 mg, By Mouth, Daily Atorvastatin 20 mg Tablet (atorvastatin 20 mg oral tablet) ??20 mg, By Mouth, Daily Clopidogrel 75 mg Tablet (Plavix 75 mg oral tablet) ??75 mg, By Mouth, Daily Enoxaparin 40 mg Inj (Enoxaparin Inj) ??40 mg 0.4 mL, Subcutaneous Injection, Every 24 hours Lisinopril 20 mg Tablet (lisinopril 20 mg oral tablet) ??20 mg, By Mouth, Daily NaCl 0.9% Flush 3ml (NaCL 0.9% Flush) ??3 mL, IV Push, Every 8 hours Polyethylene Glycol 17 Gm Powder (MiraLax Powder) ??17 Gm 1 pack/packet, By Mouth, Daily Senna Tablet ??17.2 mg 2 tablet, By Mouth, Daily Tamsulosin 0.4 mg Capsule (tamsulosin 0.4 mg oral capsule) ??0.4 mg, By Mouth, Daily Vitamin D 1000 IU Tablet (Vitamin D3 1000 intl units oral tablet) ??2,000 International_Units, By Mouth, Daily CONTINUOUS: (0) PRN: (6) Acetaminophen 325 mg Tablet (Acetaminophen Tablet) ??650 mg, By Mouth, Every 4 hours Dextromethorphan-Guaifenesin 20 mg-200 mg/10 mL Liqu UD (Robitussin DM Liquid) ??10 mL, By Mouth, Every 4 hours Docusate Sodium 100 mg Capsule (Docusate Sodium Capsule) ??100 mg 1 capsule, By Mouth, 2 times a day Melatonin 3 mg Tablet (Melatonin Tablet) ??3 mg, By Mouth, Daily at bedtime NaCl 0.9% Flush 3ml (NaCL 0.9% Flush) ??3 mL, IV Push, Every 8 hours Simethicone 80 mg Chewable Tablet (Simethicone Tablet) ??80 mg, Chew, 3 times a day ? Results Recent Labs BLOOD BANK Blood Type A Positive ()?? 02/16/2023 09:04 Antibody Screen Negative ()?? 02/16/2023 09:04 ?? BLOOD COUNT & DIFF WBC 4.2 k/mm3 ()?? 02/17/2023 05:58 RBC 4.75 m/mm3 ()?? 02/17/2023 05:58 Hgb 10.4 Gm/dL (Low)?? 02/17/2023 05:58 Hct 35.2 % (Low)?? 02/17/2023 05:58 MCV 74.1 femtoliters (Low)?? 02/17/2023 05:58 MCH 21.9 pg (Low)?? 02/17/2023 05:58 MCHC 29.5 g/dL (Low)?? 02/17/2023 05:58 Platelet Count 213 k/mm3 ()?? 02/17/2023 05:58 RDW-SD 45.6 femtoliters ()?? 02/17/2023 05:58 MPV 10.2 femtoliters ()?? 02/17/2023 05:58 Nucleated RBC (Automated) 0.0 #/100 WBC'S ()?? 02/17/2023 05:58 Abs. NRBC 0.0 k/mm3 ()?? 02/17/2023 05:58 Abs. Neut 2.6 k/mm3 ()?? 02/17/2023 05:58 Abs. Lymph 0.9 k/mm3 ()?? 02/17/2023 05:58 Abs. [place] 0.3 k/mm3 (Low)?? 02/17/2023 05:58 Abs. Eo 0.3 k/mm3 ()?? 02/17/2023 05:58 Abs. Baso 0.0 k/mm3 ()?? 02/17/2023 05:58 Neut % 62.7 % ()?? 02/17/2023 05:58 Lymph % 22.3 % ()?? 02/17/2023 05:58 [place] % 7.8 % ()?? 02/17/2023 05:58 Eos % 6.7 % (High)?? 02/17/2023 05:58 Baso % 0.0 % ()?? 02/17/2023 05:58 Imm Gran 0.5 % ()?? 02/17/2023 05:58 Abs. Imm Gran 0.0 k/mm3 ()?? 02/17/2023 05:58 ?? CARDIAC High Sensitivity Troponin (HSTnT) 11 ng/L ()?? 02/16/2023 16:41 ?? CHEM GENERAL Sodium 142 mmol/L ()?? 02/17/2023 05:58 Potassium 3.8 mmol/L ()?? 02/17/2023 05:58 Chloride 106 mmol/L ()?? 02/17/2023 05:58 Bicarbonate Level 26 mmol/L ()?? 02/17/2023 05:58 Anion Gap 10 ()?? 02/17/2023 05:58 Glucose Level 132 mg/dL (High)?? 02/17/2023 05:58 Glucose, POC 112 mg/dL (High)?? 02/17/2023 03:48 Hemoglobin A1C (Monitoring) 6.0 % (High)?? 02/17/2023 05:58 BUN 13 mg/dL ()?? 02/17/2023 05:58 Creatinine-Blood 0.5 mg/dL ()?? 02/17/2023 05:58 Estimated GFR Creatinine 96 ML/MIN/1.73 M2 ()?? 02/17/2023 05:58 Calcium 8.5 mg/dL (Low)?? 02/16/2023 09:18 Magnesium 2.2 mg/dL ()?? 02/17/2023 05:58 AST (SGOT) 15 units/L ()?? 02/16/2023 09:18 ?? COAG INR 1.0 ()?? 02/16/2023 09:18 Protime (PT) 11.0 seconds ()?? 02/16/2023 09:18 APTT <22.0 seconds (Low)?? 02/16/2023 09:18 ?? LIPID STUDIES Cholesterol 130 mg/dL ()?? 02/17/2023 05:58 Triglycerides 153 mg/dL (High)?? 02/17/2023 05:58 HDL Cholesterol 37 mg/dL (Low)?? 02/17/2023 05:58 LDL Cholesterol 62 mg/dL ()?? 02/17/2023 05:58 Non HDL Cholesterol 93 mg/dL ()?? 02/17/2023 05:58 ?? UA/URINALYSIS Appear/Color, Urine LIGHT YELLOW ()?? 02/16/2023 10:55 Specific [place], Urine 1.024 ()?? 02/16/2023 10:55 pH, Urine 6.5 ()?? 02/16/2023 10:55 Albumin, Urine NEGATIVE ()?? 02/16/2023 10:55 Glucose, Urine NEGATIVE ()?? 02/16/2023 10:55 Ketones, Urine NEGATIVE ()?? 02/16/2023 10:55 Bilirubin, Urine NEGATIVE ()?? 02/16/2023 10:55 Hemoglobin, Urine NEGATIVE ()?? 02/16/2023 10:55 Nitrite, Urine NEGATIVE ()?? 02/16/2023 10:55 Leukocyte, Urine 1+ (Abnormal)?? 02/16/2023 10:55 Urobilinogen NORMAL mg/dL ()?? 02/16/2023 10:55 WBC's, Urine 3 /HPF ()?? 02/16/2023 10:55 RBC's, Urine 1 /HPF ()?? 02/16/2023 10:55 Bacteria SLIGHT HPF (Abnormal)?? 02/16/2023 10:55 Squamous Epith <1 /HPF ()?? 02/16/2023 10:55 Hold Urine Culture Testing available 48 hours from time of collection. ()?? 02/16/2023 10:55 ?? URINE OTHER Est Creatinine Clearance 75.44 mL/min ()?? 02/17/2023 11:53 ? Urinalysis Est Creatinine Clearance: 75.44 mL/min (11:53) ?? Blood Gases?? No qualifying data available. ?? Assessment/Plan Chief Complaint: slurred sppech at 3 am w/ lft facial droop, pt lives home alone, vna services daily. ?? Diagnoses Acute urinary retention ??(R33.8) Chronic constipation ??(K59.09) Ovarian mass ??(N83.8) Right sided weakness ??(R53.1) Slurred speech ??(R47.81) Thyroid nodule ??(E04.1) Transient ischemic attack ??(G45.9) ?? 78-year-old female with PMH significant for Left-sided Eddy's palsy, HTN, HLD, Diet controlled DM, prior right brain CVA s/p TPA, with more recent TIA (September 2022), ovarian mass, hypothyroidism, andthyroid nodule who presented as an acutes stroke for right sided weakness and altered speech. In the ED, CT Head nonacute. CTA Head/Neck without LVO or high grade stenosis. Left thyroid lesion.??Evaluated by neurology??and recommend getting MRI??as low suspicion for stroke.??[facility] oncology also evaluated her in ER and suggested that her ovarian mass has been stable and it has nothing to do with her constipation. ??Patient was being prepared for getting discharged but??continued to have urin matilde retention??around 500 mL??post??Underwood removal??and the??discharge was canceled??since outpatient urology appointment could not be set up on time.?? Will avoid??Underwood's??catheter and continue withstraight cath??but might require Underwood on discharge. ? Right sided weakness (R53.1):??. Slurred speech (R47.81):??. Transient ischemic attack (G45.9):?? CT imaging negative for any acute changes. Eval by neurology???low suspicion for stroke ??MRI which was avoided as per neurology recommendations considering that the patient is back to baseline. ?? Plan: -Discontinue aspirin as per neurology recommendation - Will resume Plavix??upon discharge ???Will continue statin -CT head for any acute changes ? Acute urinary retention (R33.8):?? Possibly secondary to constipation. Voiding trial was done??today but she started retaining 500 ml urine??and since OP??urology appointment could not be set up??on time, the discharge was canceled. Will avoid Underwood for now and??pursue??straight cath.?? However, patient might require Underwood??on discharge with urology follow-up. ? Chronic constipation (K59.09):??Continue aggressive bowel regime Scheduled senna and miralax If no BM, will need fleet enama ? 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 Currently asymptomatic Unlikely constipation and urinary retention is caused by this [facility] plan to follow up outpatient on March 06, 2023. ? Thyroid nodule (E04.1):??Seen and CT neck, not new It was there during last admission and planned for out patient US ? Code Status:??DNR/DNI (confirmed with patient) ? DVT PPX: SQ Lovenox ?? Discharge Planning:??Likely tomorrow??after assessing for the need of Underwood and outpatient urology??appointment. ? * Luis F CHAN, Maggy Gage: PERFORM, MODIFY, MODIFY, MODIFY Event Display: Progress Note Hospital Authored Date: Patient: ??VALENTINO GARCIA ? Age:??78 Years?Sex:??Female?:??1945?? Chief Complaint/Reason for Consultation Right sided weakness, altered speech History of Present Illness Interval HPI: Overnight without acute events. Patient offers no new complaints; states she feel improved. Neurological exam stable. ?? Review of Systems Constitutional: Denies fever/chills. HEENT: Denies dizziness. Denies headache. Denies recent loss or change in vision.? Cardiovascular: Denies chest pain and/or palpitations. Denies shortness of breath.?? Respiratory: Denies SOB/dyspnea. ?? GI: Denies N/V/D. Denies abdominal discomfort. : Denies dysuria, or nocturia. Denies any other urinary symptoms. Neuro: Denies dizziness. Denies headache. Denies recent loss or change in vision. Denies paresthesia. Denies weakness. Musculoskeletal: Denies musculoskeletal pain. ? Objective Vital Signs?? Temperature: 98 DegF (02/17/23 04:54:00) Temperature Route: Oral (02/17/23 04:54:00) Pulse Rate: 69 bpm (02/17/23 04:54:00) Respiratory Rate: 16 br/min (02/17/23 04:54:00) Systolic Blood Pressure: 116 mm Hg (02/17/23 05:00:00) Diastolic Blood Pressure: 58 mm Hg (02/17/23 05:00:00) Blood pressure sites: Arm, right (02/17/23 05:00:00) Mean Arterial Pressure: 50 mm Hg (02/17/23 04:54:00) Pulse Pressure: 58 mm Hg (02/17/23 05:00:00) Oxygen Saturation: 98 % (02/17/23 04:54:00) Liters per Minute: 2 L/min (02/16/23 09:09:00) Mode of Delivery (Oxygen): Room air (02/17/23 04:54:00) Early Warning Score: 0 (02/17/23 07:43:49) ? Sherman Coma Scale Marana Coma Score: 15 (02/17/23 04:00:00) Motor Response-Adult: Obeys commands (02/17/23 04:00:00) Response Eye Opening: Spontaneously (02/17/23 04:00:00) Verbal Response-Adult: Oriented and converses (02/17/23 04:00:00) ? Physical Exam General:??78-year-old female, who appears stated age. Alert and attentive. Responds to questioning with slurred speech Integ: Skin is warm, dry and intact. No diaphoresis.?? HEENT: Eyes symmetrical. Pupils: L: 2mm; reactive on right, nonreactive on left. Extraocular eye movements and convergence intact. No nystagmus. Hearing grossly intact.?? Respiratory: Respirations even and unlabored. GI: Abd soft and nondistended. Extremities: warm and perfused. Neurological: Mental status: A&O x3. Answers questions and follows commands. Cranial Nerves: II: Pupils 2mm equally round, regular and reactive to light III, IV, : EOM intact, no gaze preference or deviation. No nystagmus. VFF V: Facial sensation intact to light touch in V1, V2, and V3 segments; subjectively decreased on left VII: Left facial weakness of both upper and lower portions VIII: Normal hearing to speech IX, X:??Normal palatal elevation, no uvular deviation.?? XI: Shoulder shrug intact bilaterally XII: Midline tongue protrusion Motor: Musculoskeletal development appropriate for age and gender. Moves extremities independently. Rolling tremor of head/neck, and upper extremities Strength Verification Specialist: L: 5/5 ? R: 5/5 Deltoids: L: 4+/5 ? R:4/5 (due to shoulder discomfort) Biceps: ?? L: 5/5 ? R:5/5 Triceps: ?? L: 5/5 ? R:5/5 Knee extension: L: 4+/5 ? R: 4+/5 Sensory: Sensation intact to light touch; subjectively decreased on left. RLE neglect on double sided stimulation Coordination:?? Finger to nose without dysmetria Gait: Deferred. ?? Assessment/Plan 78-year-old female with PMH significant for Left-sided Eddy's palsy, HTN, HLD, Diet controlled DM, prior right brain CVA s/p TPA, with more recent TIA (September 2022), ovarian mass,??hypothyroidism, and thyroid nodule??who presented as an acutes stroke for right sided weakness and altered speech. Thepatient reports she was in her usual state of health, however had been experiencing constipation. At 0300 she went to use the bathroom, and had to disimpact herself. During this time, she had experienced abdominal pain, as well as some rectal bleeding. She additionally noted slurred speech at this time. This morning, visiting staff noted right facial droop, and right sided weakness. This in additional to rectal bleeding prompted EMS dispatch. Some confusion regarding Plavix, in which the patient reports she was told to stop her Plavix by a doctor, but has continued it regardless. LWK: 0300. BP: 115/85. POC: 144. In the ED, CT Head nonacute. CTA Head/Neck without LVO or high grade stenosis. Left thyroid lesion. Patient OOW for TNK, and no LVO for NEV intervention. ? DDx: Slurred speech, and right sided weakness (No right sided weakness appreciated; Left facial droop; unclear chronicity)??- Low supicion for acute stroke ? Recommendations: - NPO until swallow function cleared - If Hgb/Hct stable, and no medical contraindications, would resume home Plavix ? - NO NEED FOR BOTH ASA and Plavix from a neurological perspective - Home statin when able for LDL goal??<70; adjust according to lipid panel - No role??for MRI Brain, as had a recent MRI and will not plant changer ? - q4hr neuro checks, VS, and telemetry monitoring - STAT CT head for any acute changes - DVT prophylaxis - Control vascular risks: A1C <7.0. Statin therapy for LDL >70 or >100 with only one vascular risk. [facility] BP control - Followup for thyroid lesion as necessary - Remainder of care per primary team ? Thank you. Neurology will??sign off at this time ?? d/w Dr. Antunez d/w Angelina Villatoro Histories Past Medical History/Problem List Active Problems??(14) Eddy [...] quit more than 30 days ago. ? Stroke Treatment Details Service Categories #1: Physical Therapy, Usp Able to close lips, pucker and blow out: Yes Able to swallow own secretions: Yes Absence of dysarthria/dysphonia/aphonia: Yes No delay in swallowing (tsp): Yes Patient alert: Yes Swallows water without choking (60cc): Yes Swallows water without choking (tsp): Yes Voice sounds clear, not gurgly (60cc): Yes Voice sounds clear, not gurgly (tsp): Yes Voluntary Cough: Yes ?? Medications Home Medications Alendronate (Fosamax 70 mg oral tablet)?1?tab(s)?70?Milligram?By Mouth?Every 7 days Alendronate (Fosamax 70 mg oral tablet)?1?tab(s)?70?Milligram?By Mouth Aspirin?81?Milligram?By Mouth?Daily Atenolol (Atenolol Tablet)?50?Milligram?By Mouth?Daily Atorvastatin (atorvastatin 20 mg oral tablet)?1?tab(s)?20?Milligram?By Mouth?Daily Calcium And Vitamin D Combination (Oysco 500 with D 500 mg-200 intl units oral tablet)?1?tab(s)?By Mouth?Daily Calcium Carbonate (Oysco 500)?1,250?Milligram?By Mouth?3 times a day Cholecalciferol (Vitamin D3 2000 intl units oral capsule)?1?capsule?50?Microgram?By Mouth?Daily Clopidogrel (Plavix 75 mg oral tablet)?75?Milligram?1?tablet?By Mouth?Daily Clotrimazole Topical (Clotrimazole 1% Topical)?1?dimitri?Topically?2 times a day?as needed?Itch?under breast. Docusate (Colace sodium 100 mg oral capsule)?100?Milligram?1?capsule?By Mouth?Daily Hydrocortisone Topical (HydroCORTisone ??2.5% Topical)?1?dimitri?Topically?2 times a day?as needed?Itch?on face and neck Levothyroxine (levothyroxine 0.088 mg oral tablet)?1?tab(s)?88?Microgram?By Mouth?Daily Lisinopril (lisinopril 20 mg oral tablet)?20?Milligram?1?tablet?By Mouth?Daily Friona-3 Polyunsaturated Fatty Acids (Fish Oil)?1,000?Milligram?By Mouth?Daily at bedtime Polyethylene Glycol 3350 (MiraLax oral powder for reconstitution)?17?gram?By Mouth?Daily?dissolve in water before taking Senna (Senokot 187 mg oral tablet)?2?tab(s)?17.2?Milligram?By Mouth?Daily at bedtime?as needed?for constipation?start if you start percocet Tamsulosin (tamsulosin 0.4 mg oral capsule)?0.4?Milligram?1?capsule?By Mouth?Daily ? Inpatient Medications Medications (17) Active SCHEDULED: (11) Aspirin 81 mg Chew Tablet (aspirin 81 mg oral tablet, chewable) ??81 mg, By Mouth, Daily Atenolol 50 mg Tablet (Atenolol Tablet) ??50 mg, By Mouth, Daily Atorvastatin 20 mg Tablet (atorvastatin 20 mg oral tablet) ??20 mg, By Mouth, Daily Clopidogrel 75 mg Tablet (Plavix 75 mg oral tablet) ??75 mg, By Mouth, Daily Enoxaparin 40 mg Inj (Enoxaparin Inj) ??40 mg 0.4 mL, Subcutaneous Injection, Every 24 hours Lisinopril 20 mg Tablet (lisinopril 20 mg oral tablet) ??20 mg, By Mouth, Daily NaCl 0.9% Flush 3ml (NaCL 0.9% Flush) ??3 mL, IV Push, Every 8 hours Polyethylene Glycol 17 Gm Powder (MiraLax Powder) ??17 Gm 1 pack/packet, By Mouth, Daily Senna Tablet ??17.2 mg 2 tablet, By Mouth, Daily Tamsulosin 0.4 mg Capsule (tamsulosin 0.4 mg oral capsule) ??0.4 mg, By Mouth, Daily Vitamin D 1000 IU Tablet (Vitamin D3 1000 intl units oral tablet) ??2,000 International_Units, By Mouth, Daily CONTINUOUS: (0) PRN: (6) Acetaminophen 325 mg Tablet (Acetaminophen Tablet) ??650 mg, By Mouth, Every 4 hours Dextromethorphan-Guaifenesin 20 mg-200 mg/10 mL Liqu UD (Robitussin DM Liquid) ??10 mL, By Mouth, Every 4 hours Docusate Sodium 100 mg Capsule (Docusate Sodium Capsule) ??100 mg 1 capsule, By Mouth, 2 times a day Melatonin 3 mg Tablet (Melatonin Tablet) ??3 mg, By Mouth, Daily at bedtime NaCl 0.9% Flush 3ml (NaCL 0.9% Flush) ??3 mL, IV Push, Every 8 hours Simethicone 80 mg Chewable Tablet (Simethicone Tablet) ??80 mg, Chew, 3 times a day ? Results Recent Labs BLOOD BANK Blood Type A Positive ()?? 02/16/2023 09:04 Antibody Screen Negative ()?? 02/16/2023 09:04 ?? BLOOD COUNT & DIFF WBC 4.2 k/mm3 ()?? 02/17/2023 05:58 RBC 4.75 m/mm3 ()?? 02/17/2023 05:58 Hgb 10.4 Gm/dL (Low)?? 02/17/2023 05:58 Hct 35.2 % (Low)?? 02/17/2023 05:58 MCV 74.1 femtoliters (Low)?? 02/17/2023 05:58 MCH 21.9 pg (Low)?? 02/17/2023 05:58 MCHC 29.5 g/dL (Low)?? 02/17/2023 05:58 Platelet Count 213 k/mm3 ()?? 02/17/2023 05:58 RDW-SD 45.6 femtoliters ()?? 02/17/2023 05:58 MPV 10.2 femtoliters ()?? 02/17/2023 05:58 Nucleated RBC (Automated) 0.0 #/100 WBC'S ()?? 02/17/2023 05:58 Abs. NRBC 0.0 k/mm3 ()?? 02/17/2023 05:58 Abs. Neut 2.6 k/mm3 ()?? 02/17/2023 05:58 Abs. Lymph 0.9 k/mm3 ()?? 02/17/2023 05:58 Abs. [place] 0.3 k/mm3 (Low)?? 02/17/2023 05:58 Abs. Eo 0.3 k/mm3 ()?? 02/17/2023 05:58 Abs. Baso 0.0 k/mm3 ()?? 02/17/2023 05:58 Neut % 62.7 % ()?? 02/17/2023 05:58 Lymph % 22.3 % ()?? 02/17/2023 05:58 [place] % 7.8 % ()?? 02/17/2023 05:58 Eos % 6.7 % (High)?? 02/17/2023 05:58 Baso % 0.0 % ()?? 02/17/2023 05:58 Imm Gran 0.5 % ()?? 02/17/2023 05:58 Abs. Imm Gran 0.0 k/mm3 ()?? 02/17/2023 05:58 ?? CARDIAC High Sensitivity Troponin (HSTnT) 11 ng/L ()?? 02/16/2023 16:41 ?? CHEM GENERAL Sodium 142 mmol/L ()?? 02/17/2023 05:58 Potassium 3.8 mmol/L ()?? 02/17/2023 05:58 Chloride 106 mmol/L ()?? 02/17/2023 05:58 Bicarbonate Level 26 mmol/L ()?? 02/17/2023 05:58 Anion Gap 10 ()?? 02/17/2023 05:58 Glucose Level 132 mg/dL (High)?? 02/17/2023 05:58 Glucose, POC 112 mg/dL (High)?? 02/17/2023 03:48 Hemoglobin A1C (Monitoring) 6.0 % (High)?? 02/17/2023 05:58 BUN 13 mg/dL ()?? 02/17/2023 05:58 Creatinine-Blood 0.5 mg/dL ()?? 02/17/2023 05:58 Estimated GFR Creatinine 96 ML/MIN/1.73 M2 ()?? 02/17/2023 05:58 Calcium 8.5 mg/dL (Low)?? 02/16/2023 09:18 Magnesium 2.2 mg/dL ()?? 02/17/2023 05:58 AST (SGOT) 15 units/L ()?? 02/16/2023 09:18 ?? COAG INR 1.0 ()?? 02/16/2023 09:18 Protime (PT) 11.0 seconds ()?? 02/16/2023 09:18 APTT <22.0 seconds (Low)?? 02/16/2023 09:18 ?? LIPID STUDIES Cholesterol 130 mg/dL ()?? 02/17/2023 05:58 Triglycerides 153 mg/dL (High)?? 02/17/2023 05:58 HDL Cholesterol 37 mg/dL (Low)?? 02/17/2023 05:58 LDL Cholesterol 62 mg/dL ()?? 02/17/2023 05:58 Non HDL Cholesterol 93 mg/dL ()?? 02/17/2023 05:58 ?? UA/URINALYSIS Appear/Color, Urine LIGHT YELLOW ()?? 02/16/2023 10:55 Specific [place], Urine 1.024 ()?? 02/16/2023 10:55 pH, Urine 6.5 ()?? 02/16/2023 10:55 Albumin, Urine NEGATIVE ()?? 02/16/2023 10:55 Glucose, Urine NEGATIVE ()?? 02/16/2023 10:55 Ketones, Urine NEGATIVE ()?? 02/16/2023 10:55 Bilirubin, Urine NEGATIVE ()?? 02/16/2023 10:55 Hemoglobin, Urine NEGATIVE ()?? 02/16/2023 10:55 Nitrite, Urine NEGATIVE ()?? 02/16/2023 10:55 Leukocyte, Urine 1+ (Abnormal)?? 02/16/2023 10:55 Urobilinogen NORMAL mg/dL ()?? 02/16/2023 10:55 WBC's, Urine 3 /HPF ()?? 02/16/2023 10:55 RBC's, Urine 1 /HPF ()?? 02/16/2023 10:55 Bacteria SLIGHT HPF (Abnormal)?? 02/16/2023 10:55 Squamous Epith <1 /HPF ()?? 02/16/2023 10:55 Hold Urine Culture Testing available 48 hours from time of collection. ()?? 02/16/2023 10:55 ? Abnormal Labs ?? BLOOD BANK ??Antibody Screen ??Negative () ??02/16/2023 09:04 ??Blood Type ??A Positive () ??02/16/2023 09:04 ? BLOOD COUNT & DIFF ??Abs. Imm Gran ??0.0 k/mm3 () ??02/17/2023 05:58 ??Abs. [place] ??0.3 k/mm3 (Low) ??02/17/2023 05:58 ??Abs. NRBC ??0.0 k/mm3 () ??02/17/2023 05:58 ??Eos % ??6.7 % (High) ??02/17/2023 05:58 ??Hct ??35.2 % (Low) ??02/17/2023 05:58 ??Hgb ??10.4 Gm/dL (Low) ??02/17/2023 05:58 ??Imm Gran ??0.5 % () ??02/17/2023 05:58 ??MCH ??21.9 pg (Low) ??02/17/2023 05:58 ??MCHC ??29.5 g/dL (Low) ??02/17/2023 05:58 ??MCV ??74.1 femtoliters (Low) ??02/17/2023 05:58 ??Nucleated RBC (Automated) ??0.0 #/100 WBC'S () ??02/17/2023 05:58 ??RDW-SD ??45.6 femtoliters () ??02/17/2023 05:58 ? CARDIAC ??High Sensitivity Troponin (HSTnT) ??11 ng/L () ??02/16/2023 16:41 ? CHEM GENERAL ??Calcium ??8.5 mg/dL (Low) ??02/16/2023 09:18 ??Estimated GFR Creatinine ??96 ML/MIN/1.73 M2 () ??02/17/2023 05:58 ??Glucose Level ??132 mg/dL (High) ??02/17/2023 05:58 ??Glucose, POC ??112 mg/dL (High) ??02/17/2023 03:48 ??Hemoglobin A1C (Monitoring) ??6.0 % (High) ??02/17/2023 05:58 ? COAG ??APTT ??<22.0 seconds (Low) ??02/16/2023 09:18 ? LIPID STUDIES ??Cholesterol ??130 mg/dL () ??02/17/2023 05:58 ??HDL Cholesterol ??37 mg/dL (Low) ??02/17/2023 05:58 ??Non HDL Cholesterol ??93 mg/dL () ??02/17/2023 05:58 ??Triglycerides ??153 mg/dL (High) ??02/17/2023 05:58 ? UA/URINALYSIS ??Albumin, Urine ??NEGATIVE () ??02/16/2023 10:55 ??Appear/Color, Urine ??LIGHT YELLOW () ??02/16/2023 10:55 ??Bacteria ??SLIGHT HPF (Abnormal) ??02/16/2023 10:55 ??Bilirubin, Urine ??NEGATIVE () ??02/16/2023 10:55 ??Glucose, Urine ??NEGATIVE () ??02/16/2023 10:55 ??Hemoglobin, Urine ??NEGATIVE () ??02/16/2023 10:55 ??Hold Urine Culture ??Testing available 48 hours from time of collection. () ??02/16/2023 10:55 ??Ketones, Urine ??NEGATIVE () ??02/16/2023 10:55 ??Leukocyte, Urine ??1+ (Abnormal) ??02/16/2023 10:55 ??Nitrite, Urine ??NEGATIVE () ??02/16/2023 10:55 ??Urobilinogen ??NORMAL mg/dL () ??02/16/2023 10:55 ? Note: Critical results are displayed in red. ? * Harmony BELLO, Eber: PERFORM Event Display: Progress Note Hospital Authored Date: Patient discussed with HOLLOCK MAKER Maggy Kerns. I reviewed her note and agree with her assessment and plan. I reviewed the patient's history, lab values, and imaging studies. ?? Eber Antunez MD, PhD Consult note * Luis F HOLLOCK MAKER, Maggy Gage: MODIFY, PERFORM, MODIFY, MODIFY, MODIFY, MODIFY, MODIFY, MODIFY, MODIFY, MODIFY,MODIFY, MODIFY, MODIFY Event Display: Consultation Note Authored Date: Patient: ??VALENTINO GARCIA ? Age:??78 Years?Sex:??Female?:??1945?? Chief Complaint/Reason for Consultation Right sided weakness, altered speech History of Present Illness Ms. Garcia is 78-year-old female with PMH significant for Left-sided Eddy's palsy, HTN, HLD, Diet controlled DM, prior right brain CVA s/p TPA, with more recent TIA (September 2022), ovarian mass,??hypothyroidism, and thyroid nodule??who presented as an acutes stroke for right sided weakness and altered speech. The patient reports she was in her usual state of health, however had been experiencing constipation. At 0300 she went to use the bathroom, and had to disimpact herself. During this time, she had experienced abdominal pain, as well as some rectal bleeding. She additionally noted slurred speech at this time. This morning, visiting staff noted right facial droop, and right sided weakness. This in additional to rectal bleeding prompted EMS dispatch. Some confusion regarding Plavix, in which the patient reports she was told to stop her Plavix by a doctor, but has continued it regardless. LWK: 0300. BP: 115/85. POC: 144. In the ED, CT Head nonacute. CTA Head/Neck without LVO or high grade stenosis. Left thyroid lesion. Patient OOW for TNK, and no LVO for NEV intervention. ?? Objective Vital Signs?? Temperature?97.9 ?(09:45) Systolic Blood Pressure?115 ?(09:45) Diastolic Blood Pressure?85 ?(09:45) Pulse?86 ?(09:45) SpO2?97 ?(09:45) Respiratory Rate?22 ?(09:45) ? NIH Stroke Scale: ?? 1a. LOC (0-alert; 1-not alert, arousable; 2-not alert, obtunded; 3- nonresponsive): 0 1b. Questions (0-answers two correctly; 1-answers one correctly; 2-answers neither correctly): 0 1c. Commands (0-perform two tasks; 1-performs one task; 2-performs neither tasks): 0 2. Gaze (0-normal; 1-partial gaze palsy; 2-forced deviation): 0 3. Visual [place] (0-no visual loss; 1-partial hemianopsia; 2-complete hemianopsia; 3-bilateral hemianopsia): 0 4. Facial palsy (0-normal; 1-minor palsy; 2-partial palsy; 3-complete paralysis): 1 5a. Motor left arm (0-normal; 1-drift before 10 sec; 2-falls before 10 sec; 3-no effort against gravity; 4-no movement): 0 5b. Motor right arm (0-normal; 1-drift before 10 sec; 2-falls before 10 sec; 3- no effort against gravity; 4-no movement): 0 6a. Motor left leg (0-normal; 1-drift before 5 sec; 2-falls before 5 sec; 3-no effort against gravity; 4-no movement): 0 6b. Motor right leg (0-normal; 1-drift before 5 sec; 2-falls before 5 sec; 3-no effort against gravity; 4-no movement): 0 7. Ataxia (0-absent; 1-one limb; 2-two limbs): 0 8. Sensory (0-absent; 1-mild/moderate; 2-severe/total loss): 1 9. Language (0-normal; 1-mild/moderate loss; 2-severe aphasia; 3-mute): 0 10. Dysarthria (0-normal; 1-mild/moderate; 2-severe): 1 11. Extinction (0-normal; 1-mild-one modality; [id number] modality): 0 ?? NIHSS Total:??3 ? Physical Exam General:??78-year-old female, who appears stated age. Alert and attentive. Responds to questioning with slurred speech Integ: Skin is warm, dry and intact. No diaphoresis.?? HEENT: Eyes symmetrical. Pupils: L: 2mm; reactive on right, nonreactive on left. Extraocular eye movements and convergence intact. No nystagmus. Hearing grossly intact.?? Respiratory: Respirations even and unlabored. GI: Abd soft and nondistended. Extremities: warm and perfused. Neurological: Mental status: A&O x3. Answers questions and follows commands. Cranial Nerves: II: Pupils 2mm equally round, regular and reactive to light III, IV, : EOM intact, no gaze preference or deviation. No nystagmus. VFF V: Facial sensation intact to light touch in V1, V2, and V3 segments; subjectively decreased on left VII: Left facial weakness of both upper and lower portions VIII: Normal hearing to speech IX, X:??Normal palatal elevation, no uvular deviation.?? XI: Shoulder shrug intact bilaterally XII: Midline tongue protrusion Motor: Musculoskeletal development appropriate for age and gender. Moves extremities independently. Rolling tremor of head/neck, and upper extremities Strength Verification Specialist: L: 5/5 ? R: 5/5 Deltoids: L: 4+/5 ? R:4/5 (due to shoulder discomfort) Biceps: ?? L: 5/5 ? R:5/5 Triceps: ?? L: 5/5 ? R:5/5 Knee extension: L: 4+/5 ? R: 4+/5 Sensory: Sensation intact to light touch; subjectively decreased on left. RLE neglect on double sided stimulation Coordination:?? Finger to nose without dysmetria Gait: Deferred. ?? Assessment/Plan 78-year-old female with PMH significant for Left-sided Eddy's palsy, HTN, HLD, Diet controlled DM, prior right brain CVA s/p TPA, with more recent TIA (September 2022), ovarian mass,??hypothyroidism, and thyroid nodule??who presented as an acutes stroke for right sided weakness and altered speech. Thepatient reports she was in her usual state of health, however had been experiencing constipation. At 0300 she went to use the bathroom, and had to disimpact herself. During this time, she had experienced abdominal pain, as well as some rectal bleeding. She additionally noted slurred speech at this time. This morning, visiting staff noted right facial droop, and right sided weakness. This in additional to rectal bleeding prompted EMS dispatch. Some confusion regarding Plavix, in which the patient reports she was told to stop her Plavix by a doctor, but has continued it regardless. LWK: 0300. BP: 115/85. POC: 144. In the ED, CT Head nonacute. CTA Head/Neck without LVO or high grade stenosis. Left thyroid lesion. Patient OOW for TNK, and no LVO for NEV intervention. ? DDx: Slurred speech, and right sided weakness (No right sided weakness appreciated; Left facial droop; unclear chronicity)??- Rule out possible small stroke vs other ? Recommendations: - NPO until swallow function cleared - If Hgb/Hct stable, and no medical contraindications, would resume home Plavix - Check lipid panel and A1C - Home statin when able for LDL goal??<70 - No role??for MRI Brain, as had a recent MRI and will not plant changer ? - May consider repeat CT Head if necessary, and if concern for stroke persists - q4hr neuro checks, VS, and telemetry monitoring - STAT CT head for any acute changes - DVT prophylaxis - Control vascular risks: A1C <7.0. Statin therapy for LDL >70 or >100 with only one vascular risk. 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 Thank you. Neurology will follow. Please call with any questions ?? d/w Dr. Antunez d/w ED team Histories Past Medical History/Problem List Active Problems??(14) Eddy [...] quit more than 30 days ago. ? Stroke Treatment Details Service Categories #1: Physical Therapy, Usp Able to close lips, pucker and blow out: Yes Able to swallow own secretions: Yes Absence of dysarthria/dysphonia/aphonia: Yes No delay in swallowing (tsp): Yes Patient alert: Yes Swallows water without choking (60cc): Yes Swallows water without choking (tsp): Yes Voice sounds clear, not gurgly (60cc): Yes Voice sounds clear, not gurgly (tsp): Yes Voluntary Cough: Yes ?? Medications Home Medications Alendronate (Fosamax 70 mg oral tablet)?1?tab(s)?70?Milligram?By Mouth?Every 7 days Alendronate (Fosamax 70 mg oral tablet)?1?tab(s)?70?Milligram?By Mouth Aspirin?81?Milligram?By Mouth?Daily Atenolol (Atenolol Tablet)?50?Milligram?By Mouth?Daily Atorvastatin (atorvastatin 20 mg oral tablet)?1?tab(s)?20?Milligram?By Mouth?Daily Calcium And Vitamin D Combination (Oysco 500 with D 500 mg-200 intl units oral tablet)?1?tab(s)?By Mouth?Daily Calcium Carbonate (Oysco 500)?1,250?Milligram?By Mouth?3 times a day Cholecalciferol (Vitamin D3 2000 intl units oral capsule)?1?capsule?50?Microgram?By Mouth?Daily Clopidogrel (Plavix 75 mg oral tablet)?75?Milligram?1?tablet?By Mouth?Daily Clotrimazole Topical (Clotrimazole 1% Topical)?1?dimitri?Topically?2 times a day?as needed?Itch?under breast. Docusate (Colace sodium 100 mg oral capsule)?100?Milligram?1?capsule?By Mouth?Daily Hydrocortisone Topical (HydroCORTisone ??2.5% Topical)?1?dimitri?Topically?2 times a day?as needed?Itch?on face and neck Levothyroxine (levothyroxine 0.088 mg oral tablet)?1?tab(s)?88?Microgram?By Mouth?Daily Lisinopril (lisinopril 20 mg oral tablet)?20?Milligram?1?tablet?By Mouth?Daily Friona-3 Polyunsaturated Fatty Acids (Fish Oil)?1,000?Milligram?By Mouth?Daily at bedtime Polyethylene Glycol 3350 (MiraLax oral powder for reconstitution)?17?gram?By Mouth?Daily?dissolve in water before taking Senna (Senokot 187 mg oral tablet)?2?tab(s)?17.2?Milligram?By Mouth?Daily at bedtime?as needed?for constipation?start if you start percocet Tamsulosin (tamsulosin 0.4 mg oral capsule)?0.4?Milligram?1?capsule?By Mouth?Daily ? Results Recent Labs CHEM GENERAL Glucose, POC 144 mg/dL (High)?? 02/16/2023 09:00 ? Abnormal Labs ?? CHEM GENERAL ??Glucose, POC ??144 mg/dL (High) ??02/16/2023 09:00 ? Note: Critical results are displayed in red. ? * Harmony BELLO, Eber: PERFORM Event Display: Consultation Note Authored Date: [id number] Patient discussed with HOLLOCK MAKER Maggy Kerns. I reviewed her note and agree with her assessment and plan. I reviewed the patient's history, lab values, and imaging studies.?hard findng is the mild left facial droop (chronicity is unclear); no right sided weakness; repeat hCT if strong consideration of new stroke (not very likely); no MRI. ? Eber Antunez MD, PhD Note * Aki PHELPS, Joby: PERFORM Event Display: Discharge/Transfer Note Hospital Authored Date: [id number] Nursing Discharge Note Entered On: 02/18/2023 12:18 EST Performed On: 02/18/2023 12:17 EST by Joby Prabhakar RN Nursing Discharge Note 2 Discharge Time : 02/18/2023 12:10 EST Discharge Level of Care at Discharge : Homehealth/VNA Discharge VNA/Hospice/Home Care(v001) : [facility] [phone] Patient Left Unit Via : Wheelchair Patient Accompanied Off Unit with : Responsible adult, DSS worker DC Instructions Provided & Signed by Pt : Yes Patient Understands D/C Instructions : Yes Patient Instructions Discharge Signed : Yes Did Pt have Specialty Bed or Wound Vac : No Joby Prabhakar RN - 02/18/2023 12:17 EST * Etta Torrez MD: PERFORM Event Display: Discharge/Transfer Note Hospital Authored Date: [id number] Patient: ??VALENTINO GARCIA ? Age:??78 Years?Sex:??Female?:??1945?? Patient Information Discharge Location: [facility] Primary Care Physician: Sangeetha Sage MD Admit Date/Time: 02/16/23 14:09 Discharge Disposition Discharge Disposition: Home with Home Health Discharge Diagnosis Acute urinary retention (R33.8) Chronic constipation (K59.09) Ovarian mass (N83.8) Right sided weakness (R53.1) Slurred speech (R47.81) Thyroid nodule (E04.1) Transient ischemic attack (G45.9) ?? _ Discharge Medications Alendronate (Fosamax 70 mg oral tablet)?1?tab(s)?70?Milligram?By Mouth?Every 7 days Atenolol (Atenolol Tablet)?50?Milligram?By Mouth?Daily Atorvastatin (atorvastatin 20 mg oral tablet)?1?tab(s)?20?Milligram?By Mouth?Daily Calcium Carbonate (Oysco 500)?1,250?Milligram?By Mouth?3 times a day Cholecalciferol (Vitamin D3 2000 intl units oral capsule)?1?capsule?50?Microgram?By Mouth?Daily Clopidogrel (Plavix 75 mg oral tablet)?75?Milligram?1?tablet?By Mouth?Daily Docusate (Colace sodium 100 mg oral capsule)?100?Milligram?1?capsule?By Mouth?Daily Docusate (docusate sodium 100 mg oral tablet)?1?tab(s)?100?Milligram?By Mouth?2 times a day?as needed?for constipation?HOLD IF HAVING LOOSE STOOL Hydrocortisone Topical (HydroCORTisone ??2.5% Topical)?1?dimitri?Topically?2 times a day?as needed?Itch?on face and neck Levothyroxine (levothyroxine 0.088 mg oral tablet)?1?tab(s)?88?Microgram?By Mouth?Daily Lisinopril (lisinopril 20 mg oral tablet)?20?Milligram?1?tablet?By Mouth?Daily Friona-3 Polyunsaturated Fatty Acids (Fish Oil)?1,000?Milligram?By Mouth?Daily at bedtime Polyethylene Glycol 3350 (MiraLax oral powder for reconstitution)?17?gram?By Mouth?Daily?dissolve in 4 to 8 oz of beverageHOLD IF HAVINF LOOSE STOOL Senna (senna 187 mg oral tablet)?2?tab(s)?17.2?Milligram?By Mouth?Daily?as needed?as needed for constipation Tamsulosin (tamsulosin 0.4 mg oral capsule)?0.4?Milligram?1?capsule?By Mouth?Daily ? Medications Started ?? MiraLAX As needed??Senokot Medications Discontinued None Doses Changed Aspirin Allergies Allergies ?(Active and Proposed Allergies Only) metformin? (Severity: Unknown severity, Onset: Unknown) ?Reactions: rash Darvon? (Severity: Unknown severity, Onset: Unknown) ?Reactions: swelling ? PCP Follow-Up/Heads-Up Patient admitted for right-sided weakness.?? Aspirin switched to Plavix per neurology. Also concern for ovarian mass.?? 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 Urinary retention currently resolved, needs outpatient follow-up.?? Will need referral to urology??if having recurrent issues. Thank you Future Appointments Monday 9:00 AM EST ?? With: Yunior BELLO, Jyoti Gage Where: [facility] INTEGRATED CAMPAIGN MANAGER Oncology [address] [place] [address] [place] [address]- Status: Pending Hospital Course 78-year-old female with PMH significant for Left-sided Eddy's palsy, HTN, HLD, Diet controlled DM, prior right brain CVA s/p TPA, with more recent TIA (September 2022), ovarian mass, hypothyroidism, andthyroid nodule who presented as an acutes stroke for right sided weakness and altered speech. ??In the ED, CT Head nonacute. CTA Head/Neck without LVO or high grade stenosis. Left thyroid lesion. Evaluated by neurology and recommend no need for MRI, as will not plant changer. ??As per neurology??dual antiplatelet therapy is not required, aspirin discontinued and patient is being discharged already on Plavix.. Cook House Supervisor oncology also evaluated her in ER and suggested that her ovarian mass has been stable and it has nothing to do with her constipation.?Patient was??given enema, she had??large bowel movement today.?? No further rectal bleeding in hospital.?? Hemoglobin has remained stable.?? Outpatient follow-up. ? Right sided weakness (R53.1): . Slurred speech (R47.81): . Transient ischemic attack (G45.9): CT imaging negative for any acute changes. ??Eval by neurology???low suspicion for stroke ?MRI which was avoided as per neurology recommendations considering that the patient is back to baseline. ? Plan: ??-Discontinue aspirin as per neurology recommendation ??- Will resume Plavix upon discharge ???Will continue statin. ??Patient's LDL is less than 70, therefore does not need increase in dose of her??statin. ??-CT head for any acute changes ? Acute urinary retention (R33.8): ??Possibly secondary to constipation. Patient??initially had [place] catheter placed.?? This was discontinued yesterday.?? Patient is now able to void.?? Postvoid??residuals??have been around 200.?? She was able to void again??after the postvoid residual was checked. ??Patient does tell me that??she intermittently needs to strain, but is able to void??spontaneously. ??Will continue with tamsulosin at discharge.?? To follow-up with PCP outpatient. ??If has recurrent issues will need outpatient urology referral. ? Chronic constipation (K59.09): Continue aggressive bowel regime ??Scheduled senna and miralax Patient received a Fleet enema in hospital. ??Had a large bowel movement??today morning. ?? 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 ??Currently asymptomatic ??Unlikely constipation and urinary retention is caused by this ??Cook House Supervisor plan to follow up outpatient on March 06, 2023. ? Thyroid nodule (E04.1): Seen and CT neck, not new ??It was there during last admission and planned for out patient US ? Code Status: DNR/DNI (confirmed with patient) ?? Objective Vital Signs?? Temperature: 97.3 DegF (02/18/23 10:50:00) Temperature Route: Oral (02/18/23 10:50:00) Pulse Rate: 72 bpm (02/18/23 10:50:00) Respiratory Rate: 19 br/min (02/18/23 10:50:00) Systolic Blood Pressure: 131 mm Hg (02/18/23 10:50:00) Diastolic Blood Pressure: 77 mm Hg (02/18/23 10:50:00) Blood pressure sites: Arm, right (02/18/23 10:50:00) Mean Arterial Pressure: 95 mm Hg (02/18/23 10:50:00) Pulse Pressure: 54 mm Hg (02/18/23 10:50:00) Oxygen Saturation: 97 % (02/18/23 10:50:00) Mode of Delivery (Oxygen): Room air (02/18/23 10:50:00) Early Warning Score: 2 (02/18/23 10:50:47) ? . Physical Exam Awake, alert, oriented Lungs: Clear to auscultation bilateral, no wheezing no rales Heart: Regular rate and rhythm, no murmur, no rub or gallop Abdomen: Soft, nontender, nondistended; Bowel sounds present Extremity: No edema cyanosis clubbing Neurological: No focal deficit Psychiatric: Normal mood and affect Pending Results No Pending Results Follow-Up Appointments Added Follow Up ?Time Frame ?Comments Sangeetha Sage MD Patient Instructions You were admitted for possible concerns for stroke but your CT scan and other imaging scans appearsto be negative. ??You were evaluated by neurology as well??with low suspicion??for stroke??as per them.?? You were also evaluated by gynecology for left ovarian mass??who will see you as outpatient. As per neurology please stop taking aspirin and continue taking Plavix 75 mg daily. Please follow-up with your primary care provider within 1-2 weeks. You were also treated for constipation.?? Enema??required. ??You are recommended to continue??bowelregimen at home. You were treated for urinary retention.?? Now able to void spontaneously.?? If you have??recurrent issues with voiding, please seek medical attention.?Also discussed with your PCP. ??You may need??referral to urology. Home Health Face to Face ^[id number] Results Discharge Labs BLOOD BANK Blood Type A Positive ()?? 02/16/2023 09:04 Antibody Screen Negative ()?? 02/16/2023 09:04 ?? BLOOD COUNT & DIFF WBC 4.2 k/mm3 ()?? 02/17/2023 05:58 RBC 4.75 m/mm3 ()?? 02/17/2023 05:58 Hgb 10.4 Gm/dL (Low)?? 02/17/2023 05:58 Hct 35.2 % (Low)?? 02/17/2023 05:58 MCV 74.1 femtoliters (Low)?? 02/17/2023 05:58 MCH 21.9 pg (Low)?? 02/17/2023 05:58 MCHC 29.5 g/dL (Low)?? 02/17/2023 05:58 Platelet Count 213 k/mm3 ()?? 02/17/2023 05:58 RDW-SD 45.6 femtoliters ()?? 02/17/2023 05:58 MPV 10.2 femtoliters ()?? 02/17/2023 05:58 Nucleated RBC (Automated) 0.0 #/100 WBC'S ()?? 02/17/2023 05:58 Abs. NRBC 0.0 k/mm3 ()?? 02/17/2023 05:58 Abs. Neut 2.6 k/mm3 ()?? 02/17/2023 05:58 Abs. Lymph 0.9 k/mm3 ()?? 02/17/2023 05:58 Abs. [place] 0.3 k/mm3 (Low)?? 02/17/2023 05:58 Abs. Eo 0.3 k/mm3 ()?? 02/17/2023 05:58 Abs. Baso 0.0 k/mm3 ()?? 02/17/2023 05:58 Neut % 62.7 % ()?? 02/17/2023 05:58 Lymph % 22.3 % ()?? 02/17/2023 05:58 [place] % 7.8 % ()?? 02/17/2023 05:58 Eos % 6.7 % (High)?? 02/17/2023 05:58 Baso % 0.0 % ()?? 02/17/2023 05:58 Imm Gran 0.5 % ()?? 02/17/2023 05:58 Abs. Imm Gran 0.0 k/mm3 ()?? 02/17/2023 05:58 ?? CARDIAC High Sensitivity Troponin (HSTnT) 11 ng/L ()?? 02/16/2023 16:41 ? CHEM GENERAL Sodium 142 mmol/L ()?? 02/17/2023 05:58 Potassium 3.8 mmol/L ()?? 02/17/2023 05:58 Chloride 106 mmol/L ()?? 02/17/2023 05:58 Bicarbonate Level 26 mmol/L ()?? 02/17/2023 05:58 Anion Gap 10 ()?? 02/17/2023 05:58 Glucose Level 132 mg/dL (High)?? 02/17/2023 05:58 Glucose, POC 112 mg/dL (High)?? 02/17/2023 03:48 Hemoglobin A1C (Monitoring) 6.0 % (High)?? 02/17/2023 05:58 BUN 13 mg/dL ()?? 02/17/2023 05:58 Creatinine-Blood 0.5 mg/dL ()?? 02/17/2023 05:58 Estimated GFR Creatinine 96 ML/MIN/1.73 M2 ()?? 02/17/2023 05:58 Calcium 8.5 mg/dL (Low)?? 02/16/2023 09:18 Magnesium 2.2 mg/dL ()?? 02/17/2023 05:58 AST (SGOT) 15 units/L ()?? 02/16/2023 09:18 ?? COAG INR 1.0 ()?? 02/16/2023 09:18 Protime (PT) 11.0 seconds ()?? 02/16/2023 09:18 APTT <22.0 seconds (Low)?? 02/16/2023 09:18 ? LIPID STUDIES Cholesterol 130 mg/dL ()?? 02/17/2023 05:58 Triglycerides 153 mg/dL (High)?? 02/17/2023 05:58 HDL Cholesterol 37 mg/dL (Low)?? 02/17/2023 05:58 LDL Cholesterol 62 mg/dL ()?? 02/17/2023 05:58 Non HDL Cholesterol 93 mg/dL ()?? 02/17/2023 05:58 ? UA/URINALYSIS Appear/Color, Urine LIGHT YELLOW ()?? 02/16/2023 10:55 Specific [place], Urine 1.024 ()?? 02/16/2023 10:55 pH, Urine 6.5 ()?? 02/16/2023 10:55 Albumin, Urine NEGATIVE ()?? 02/16/2023 10:55 Glucose, Urine NEGATIVE ()?? 02/16/2023 10:55 Ketones, Urine NEGATIVE ()?? 02/16/2023 10:55 Bilirubin, Urine NEGATIVE ()?? 02/16/2023 10:55 Hemoglobin, Urine NEGATIVE ()?? 02/16/2023 10:55 Nitrite, Urine NEGATIVE ()?? 02/16/2023 10:55 Leukocyte, Urine 1+ (Abnormal)?? 02/16/2023 10:55 Urobilinogen NORMAL mg/dL ()?? 02/16/2023 10:55 WBC's, Urine 3 /HPF ()?? 02/16/2023 10:55 RBC's, Urine 1 /HPF ()?? 02/16/2023 10:55 Bacteria SLIGHT HPF (Abnormal)?? 02/16/2023 10:55 Squamous Epith <1 /HPF ()?? 02/16/2023 10:55 Hold Urine Culture Testing available 48 hours from time of collection. ()?? 02/16/2023 10:55 ?? URINE OTHER Est Creatinine Clearance 75.44 mL/min ()?? 02/17/2023 11:53 ? _ minutes spent on discharge * Joby Prabhakar RN: PERFORM Event Display: Patient Education/Instruction Authored Date: Inpatient Adult Discharge Instructions [address] [id number] Name: VALENTINO GARCIA : 1945 Visit: 02/16/2023 14:09:00 Current Date: 02/18/2023 11:53 Account: [id number] Inpatient Adult Discharge Instructions We would like [...] and their families. Surveys are administered by [employer], [employer]. ?? If further treatment with your primary care physician or another doctor is recommended, it is important for you to keep the appointment. Call your primary care physician or return to the Emergency Department immediately if your condition worsens, fails to improve, or new symptoms develop. If you need to find a doctor, you can call [facility] [employer] for a referral at [phone] or toll free at [phone] ([phone]) or log in to [email or web address].. ?? [facility], in keeping with [facility] guidance, no longer requires face masks for staff, patientsor visitors in most situations. Similiar to time spent indoors at other locations, there is the chance that you were exposed to repiratory viruses during your time with us (such as flu or COVID-19). If you develop symptoms concerning for a viral respiratory infection, please seek testing (and treatment if indicated) from your medical provider or home test kit. ?? You can view and manage your care through the patient portal or by using a health care dimitri of your choosing. [employer] is a website that allows you to securely view your medical information including your hospital discharge summary, office visit summaries, medications and follow-up visits. You can also request appointments, renew medications, and request access to your medical information using a health care dimitri of your choosing, or just ask a question. You can enroll at [email or web address] or register during your next office visit. You have been discharged from [facility], Patient Care Unit: D3B. If you have any questions regarding these instructions after you leave, please call us and we will be happy to assist you. [facility] Your Care Team Attending Physician Shan BELLO, Etta Consulting Providers Harmony BELLO, Eber Discharging Providers Shan BELLO, Etta Reason for Admission slurred sppech at 3 am w/ lft facial droop, pt lives home alone, vna services daily. Your Diagnosis Acute urinary retention Transient ischemic attack Right sided weakness Slurred speech Chronic constipation Ovarian mass Thyroid nodule Tests Performed Below is a partial list of the tests performed during your hospitalization. You may have had other tests and procedures not included in this list. Please discuss all test results with your provider. AST Basic Metabolic Panel BUN CBC w/ Differential Creatinine Electrolytes Glucose Level GLUCOSE POC Hemoglobin A1c, (Diagnostic) High??Sensitivity??Troponin T Lipid Panel Magnesium Level PT (INR) PTT Troponin T, High Sensitivity Type and Screen Urinalysis w/hold for Urine Culture CT Abd/Pelvis W/ IV Contrast Only CT Angio Head Hyperacute Stroke CT Angio Neck Hyperacute Stroke CT Head-Hyper Acute Stroke Primary Care Provider Sangeetha Sage MD Advance Directive Health Care Proxy on File Yes - Health Care Proxy Discharge Vitals Temperature: 97.3 DegF Height: 160 cm Pulse Rate: 72 bpm Weight: 51.1 kg Respiratory Rate: 19 br/min Body Mass Index: 20.47 kg/m2 Systolic Blood Pressure: 131 mm Hg Body surface area: 1.53 Diastolic Blood Pressure: 77 mm Hg ?? Oxygen Saturation: 97 % ?? Studies Pending All tests and labs ordered during this hospital stay have been completed unless listed below. Please discuss all pending results with your provider listed above in these instructions. ?? No incomplete studies found What to do next Instructions From Your Doctor You were admitted for possible concerns for stroke but your CT scan and other imaging scans appearsto be negative. ??You were evaluated by neurology as well??with low suspicion??for stroke??as per them.?? You were also evaluated by gynecology for left ovarian mass??who will see you as outpatient. As per neurology please stop taking aspirin and continue taking Plavix 75 mg daily. Please follow-up with your primary care provider within 1-2 weeks. You were also treated for constipation.?? Enema??required. ??You are recommended to continue??bowelregimen at home. You were treated for urinary retention.?? Now able to void spontaneously.?? If you have??recurrent issues with voiding, please seek medical attention.?Also discussed with your PCP. ??You may need??referral to urology. Discharge Orders Scheduled Follow-Up Appointments Monday 9:00 AM EST ?? With: Yunior BELLO, Jyoti Gage Where: [facility] [facility]NA[facility] Oncology [address] [facility] 4th [place] [address] [place] [address]- Status: Pending You Need to Schedule the Following Appointments Follow Up with??Chu BELLO, Sangeetha Connolly Where: [address] [place] [address]- Discharge Medications VALENTINO GARCIA :1945 Visit Date:02/16/2023 Medications: Please continue your medications until treatment is completed or stopped by your provider. Medications not listed below should be discontinued. Discuss any questions related to medications with your provider. What How Much When Instructions Next Dose New Clopidogrel (Plavix 75 mg oral tablet) 1 tab(s) Oral Daily Refills: 3 Pickup at [place] [address] 02/19/23 9AM New Polyethylene Glycol 3350 (MiraLax oral powder for reconstitution) 17 gram Oral Daily dissolve in 4 to 8 oz of beverage ?? HOLD IF HAVINF LOOSE STOOL ?? Pickup at [place] [address] 02/19/23 9AM New Senna (senna 187 mg oral tablet) 2 tab(s) Oral Daily as needed for as needed for constipation Pickup at [facility] 3 NEEDED Changed Alendronate (Fosamax 70 mg oral tablet) 1 tab(s) Oral Every 7 days Changed Docusate (Colace sodium 100 mg oral capsule) 1 capsule Oral Daily 02/19/23 9AM Changed Docusate (docusate sodium 100 mg oral tablet) 1 tab(s) Oral Twice a day as needed for for constipation HOLD IF HAVING LOOSE STOOL ?? Pickup at [facility] 3 NEEDED Unchanged Atenolol (Atenolol Tablet) 50 Milligram Oral Daily 02/19/23 9AM Unchanged Atorvastatin (atorvastatin 20 mg oral tablet) 1 tab(s) Oral Daily 02/19/23 9AM Unchanged Calcium Carbonate (Oysco 500) 1,250 Milligram Oral 3 times a day 02/18/23 3PM Unchanged Cholecalciferol (Vitamin D3 2000 intl units oral capsule) 1 capsule Oral Daily 02/19/23 9AM Unchanged Hydrocortisone Topical (HydroCORTisone 2.5% Topical) 1 dimitri Topically Twice a day as needed for Itch on face and neck ?? NEEDED Unchanged Levothyroxine (levothyroxine 0.088 mg oral tablet) 1 tab(s) Oral Daily 02/19/23 7AM Unchanged Lisinopril (lisinopril 20 mg oral tablet) 1 tab(s) Oral Daily 02/19/23 9AM Unchanged Friona-3 Polyunsaturated Fatty Acids (Fish Oil) 1,000 Milligram Oral Daily at Bedtime 02/18/23 9PM Unchanged Tamsulosin (tamsulosin 0.4 mg oral capsule) 1 capsule Oral Daily 02/19/23 9AM Pharmacy Information [facility] 3: [address], [place] [id number] [phone] ?? What How Much When Comments Stop Taking Aspirin 81 Milligram Oral Daily Test Results Below is a partial list of the most recent Laboratory test results done prior to this discharge. You may have had other tests and procedures not included in this list. Please discuss all test resultswith your provider. Est Creatinine Clearance - 75.44 mL/min (02/17/2023) AST (02/16/2023) ???AST (SGOT) - 15 units/L Basic Metabolic Panel (02/16/2023) ???Sodium - 139 mmol/L???Potassium - 3.8 mmol/L???Chloride - 105 mmol/L???Bicarbonate Level - 24 mmol/L???Anion Gap - 10???Glucose Level - 126 mg/dL???BUN - 17 mg/dL???Creatinine-Blood - 0.5 mg/dL???Estimated GFR Creatinine - 95 ML/MIN/1.73 M2???Calcium - 8.5 mg/dL BUN (02/17/2023) ???BUN - 13 mg/dL CBC w/ Differential (02/17/2023) ???WBC - 4.2 k/mm3???RBC - 4.75 m/mm3???Hgb - 10.4 Gm/dL???Hct - 35.2 %???MCV - 74.1 femtoliters???MCH - 21.9 pg???MCHC - 29.5 g/dL???Platelet Count - 213 k/mm3???RDW-SD - 45.6 femtoliters???MPV - 10.2 femtoliters???Nucleated RBC (Automated) - 0.0 #/100 WBC'S???Abs. NRBC - 0.0 k/mm3???Abs. Neut - 2.6 k/mm3???Abs. Lymph - 0.9 k/mm3???Abs. [place] - 0.3 k/mm3???Abs. Eo - 0.3 k/mm3???Abs. Baso - 0.0 k/mm3???Neut % - 62.7 %???Lymph % - 22.3 %???[place] % - 7.8 %???Eos % - 6.7 %???Baso % - 0.0 %???Imm Gran - 0.5 %???Abs. Imm Gran - 0.0 k/mm3 Creatinine (02/17/2023) ???Creatinine-Blood - 0.5 mg/dL???Estimated GFR Creatinine - 96 ML/MIN/1.73 M2 Electrolytes (02/17/2023) ???Sodium - 142 mmol/L???Potassium - 3.8 mmol/L???Chloride - 106 mmol/L???Bicarbonate Level - 26 mmol/L???Anion Gap - 10 Glucose Level (02/17/2023) ???Glucose Level - 132 mg/dL GLUCOSE POC (02/17/2023) ???Glucose, POC - 112 mg/dL Hemoglobin A1c, (Diagnostic) (02/17/2023) ???Hemoglobin A1C (Monitoring) - 6.0 % High??Sensitivity??Troponin T (02/16/2023) ???High Sensitivity Troponin (HSTnT) - 11 ng/L Lipid Panel (02/17/2023) ???Cholesterol - 130 mg/dL???Triglycerides - 153 mg/dL???HDL Cholesterol - 37 mg/dL???LDL Cholesterol - 62 mg/dL???Non HDL Cholesterol - 93 mg/dL Magnesium Level (02/17/2023) ???Magnesium - 2.2 mg/dL PT (INR) (02/16/2023) ???INR - 1.0???Protime (PT) - 11.0 seconds PTT (02/16/2023) ? ?APTT - <22.0 seconds Troponin T, High Sensitivity (02/16/2023) ???High Sensitivity Troponin (HSTnT) - 11 ng/L Type and Screen (02/16/2023) ???Blood Type - A Positive???Antibody Screen - Negative Urinalysis w/hold for Urine Culture (02/16/2023) ???Appear/Color, Urine - LIGHT YELLOW???Specific [place], Urine - 1.024???pH, Urine - 6.5???Albumin, Urine - NEGATIVE???Glucose, Urine - NEGATIVE???Ketones, Urine - NEGATIVE???Bilirubin, Urine - NEGATIVE???Hemoglobin, Urine - NEGATIVE???Nitrite, Urine - NEGATIVE???Leukocyte, Urine - 1+???Urobilinogen - NORMAL? ?WBC's, Urine - 3 /HPF? ?RBC's, Urine - 1 /HPF? ?Bacteria - SLIGHT? ?Squamous Epith - <1 /HPF???Hold Urine Culture - Testing available 48 hours [...] Belongings I fully understand and agree that [facility] accepts no responsibility for all my personal [...] home. ?? No Valuables/Belongings: No valuables/belongings present Date for Pt to Sign Valuables/Belongings: 02/16/23 16:46:00 ?? Other Discharge Information ? Case Management Discharge Plan?? Discharge Plan?? Discharge Agency Information?? Discharge Level of Care at Discharge: Homehealth/VNA Name of Agency #1: [facility]Home Care: [facility] [phone] Service Categories #1: Physical Therapy, Usp ?? Name of Person Notified of Transfer: you ?? Pulmonary Rehab Status?? Pulmonary Rehab Discharge Status?? Respiratory Rate: 19 br/min ? Common Emergency Awareness Tips IS [...] are strongly encouraged to quit. Please call [facility] at [phone] or [phone] ([phone]) or log in to [email or web address] for referrals to smoking cessation programs. ?? 988 Suicide & Crisis Lifeline is available 05/09 if you or someone you know needs to find a reason to keep living. By calling 338 you'll be connected to a skilled, trained counselor at a crisis center in your area. INPATIENT DISCHARGE INSTRUCTIONS SIGNATURE PAGE VALENTINO GARCIA Location:[facility] Registration Date and Time:02/16/2023 14:09 EST Primary Care Physician: Sangeetha Sage MD, Attending Physician: Etta Torrez MD, I VALENTINO GARCIA, have received the above patient education materials/instructions and have verbalized understanding. If ambulance or transport services are being used I further acknowledge being given a choice of service. ?? If you need to contact me, please call me at this number: . Patient/Cfa Name: Patient/Cfa Signature: Relationship to Patient: Witness Name/Signature: Date: Patient Care team information Care Team Personnel Name: Fritz Rodriguez RN Position: [facility] RN Member Role: Primary Care Nurse Name: Ilsa Harden LPN Position: [facility] RN Member Role: Primary Care Nurse Name: Cordelia Clay RN Position: [facility] RN Member Role: Primary Care Nurse Name: Joby Prabhakar RN Position: [facility] RN Member Role: Primary Care Nurse Name: Nga Hsu RN Position: [facility] RN Member Role: Primary Care Nurse Name: Sangeetha Sage MD Position: [facility] Physician - Primary Care Member Role: PCP Address: Address: [address] [place] [address] Name: Aura Ta LPN Position: [facility] RN Member Role: Primary Care Nurse Name: Bill DELEON Attending Position: [facility] ED Medicine MD Name: Dianna Cervantes RN Position: [facility] ED RN W/OE and Tasks Member Role: Patient Care Provider Name: Bo Hernandez Position: [facility] ED TA [facility] Care Team Related Persons Name: NICANOR MORTENSEN DIRECTOR Address: home [address] [facility] [employer] [place] [address] Name: SHERMAN SWAIN
--- OUTSIDE RECORDS SUMMARY | 2023-09-20 14:25 | XMS_ITS | Continuity of Care Document ---
Author Organization [facility] Address [address] [place] [id number]- Care Team Providers Care Camp Dishwasher Name Role Phone Sangeetha Sage MD Primary Care Physician Encounter [facility] Date(s): 04/04/23 - 04/04/[address] [address]- Discharge Disposition: A-D/C Walkout Attending Physician: Not on Staff, Attending MD Admitting Physician: Not on Staff, Admitting MD Referring Physician: Not on Staff, Referring MD Allergies, Adverse Reactions, Alerts Substance Reaction Severity Status metformin rash Active Darvon swelling Active Medications Atenolol Tablet 50 mg, By Mouth, Daily, [...] 0 Refills, Maintenance, 02/18/23 11:32:00 EST, Tablet, [facility], Partial fill upon patient [...] 0Refills, Maintenance, 02/18/23 11:32:00 EST, REC Powder, [facility], Partial fill upon patient request if [...] 02/17/23 15:56:00 EST, Route to Pharmacy Electronically, [facility], Partial fill upon patient request if the prescription is for a schedule II opioi... Start Date: 02/17/23 Status: Ordered senna 187 mg oral tablet 2 tablet = 17.2 mg, By Mouth, Daily, PRN as needed for constipation, # 30 tablet, 0 Refills, Maintenance, 02/18/23 11:32:00 EST, Tablet, [facility], Partial fill upon patient [...] Stroke Confirmed Active Thyroid nodule Confirmed Active Vital Signs Most recent to oldest [Reference Range]: 1 Oxygen Saturation [94-100 %] 99 % (04/04/23 4:24 AM) Pulse Rate [55-90 bpm] 67 bpm (04/04/23 4:24 AM) Blood Pressure [90-138/55-84 mm Hg] 148/ 64mm Hg *H* (04/04/23 4:24 AM) Respiratory Rate [16-30 br/min] 18 br/mi n (04/04/23 4:24 AM) Temperature [96.8-100.4 DegF] 98.1 DegF (04/04/23 4:24 AM) Mode of Delivery (Oxygen) Room air (04/04/23 4:24 AM) Blood pressure sites Arm, left (04/04/23 4:24 AM) Temperature Route Oral (04/04/23 4:24 AM) Social History Social History Type Response Smoking Status Former smoker, quit more than 30 days ago entered on: 10/31/18 Sex Patient Care team information Care Team Personnel Name: Fritz Rodriguez RN Position: [facility] RN Member Role: Primary Care Nurse Name: Ilsa Harden LPN Position: [facility] RN Member Role: Primary Care Nurse Name: Cordelia Clay RN Position: [facility] RN Member Role: Primary Care Nurse Name: Joby Prabhakar RN Position: [facility] RN Member Role: Primary Care Nurse Name: Nga Hsu RN Position: [facility] RN Member Role: Primary Care Nurse Name: Sangeetha Sage MD Position: [facility] Physician - Primary Care Member Role: PCP Address: Address: [address] [place] [id number]- Name: Aura Ta LPN Position: [facility] RN Member Role: Primary Care Nurse Care Team Related Persons Name: NICANOR MORTENSEN DIRECTOR Address: home [address] [facility] [place] [address] Name: SHERMAN SWAIN
--- OUTSIDE RECORDS SUMMARY | 2023-09-20 14:25 | XMS_ITS | Continuity of Care Document ---
Author Organization [facility] Oncolog y Address [address] [place] [address]- Care Team Providers Care Hod Carrier Name Role Phone Sangeetha Sage MD Primary Care Physician [phone] Encounter [facility] Date(s): 03/28/22 - 04/27/22 [facility]ILD[facility] CONSTRUCTION CONTRACT[facility] Oncology [address] [place] [id number] Allergies, Adverse Reactions, Alerts Substance Reaction Severity Status metformin rash Active Darvon swelling Active Medications Amlodipine = 10 mg, By Mouth, Daily at bedtime, 0 Refills, Maintenance, 07/07/17 9:26:03 EDT Start Date: 07/07/17 Status: Ordered Artificial Tears 1.4% Eyes, Both, 3 times a day, 0 Refills, Maintenance, 07/07/17 9:29:39 EDT Start Date: 07/07/17 Status: Ordered Aspirin 81, mg, By Mouth, Daily, 0, 0, 09/30/07 16:30:11, Print SVETLANA Number, [id number], Constant Indicator Start Date: 09/30/07 Status: Ordered Atenolol Tablet 50 mg, By Mouth, 2 times a day, Refills 0, Tot. Refills 0, 09/30/07 16:30:25 EDT Start Date: 09/30/07 Status: Ordered atorvastatin 20 mg oral tablet 1 tablet = 20 mg, By Mouth, Daily, 0 Refills, Maintenance Start Date: 07/07/17 Status: Ordered Breo Ellipta 100 mcg-25 mcg/inh inhalation powder 1 puffs, Inhalation, Daily, 0 Refills, Maintenance, 07/07/17 9:31:19 EDT Start Date: 07/07/17 Status: Ordered Cranberry 500mgs, Daily, 0 Refills, Maintenance, 07/07/17 9:31:59 EDT Start Date: 07/07/17 Status: Ordered Fish Oil 2000mgs, By Mouth, Daily at bedtime, 0 Refills, Maintenance, 07/07/17 9:26:58 EDT Start Date: 07/07/17 Status: Ordered Fosamax 70 mg oral tablet 1 tablet = 70 mg, By Mouth, Every 28 days, 0 Refills, Maintenance, 07/07/17 9:29:02 EDT Start Date: 07/07/17 Status: Ordered Ibuprofen Refills 0, Maintenance, 04/04/22 8:03:00 EST, Partial fill upon patient request if the prescriptionis for a schedule II opioid drug. Start Date: 04/04/22 Status: Ordered Incruse Ellipta 62.5 mcg/inh inhalation powder Inhalation, Every 24 hours, 0 Refills, Maintenance, 07/07/17 9:30:32 EDT Start Date: 07/07/17 Status: Ordered levothyroxine 0.088 mg oral tablet 1 tablet = 88 mcg, By Mouth, Daily, 0 Refills, Maintenance, 07/07/17 9:32:56 EDT Start Date: 07/07/17 Status: Ordered Multivitamin Tablet 1, tablet, By Mouth, Daily, 0, 0, 09/30/07 16:33:29, Print SVETLANA Number, [id number], Constant Indicator Start Date: 09/30/07 Status: Ordered Oysco 500 By Mouth, Daily in AM, 0 Refills, Maintenance, 07/07/17 9:35:26 EDT Start Date: 07/07/17 Status: Ordered Paxil Tablet 40 mg, By Mouth, Daily at bedtime, Refills 0, Tot. Refills 0, 09/30/07 16:33:50 EDT Start Date: 09/30/07 Status: Ordered Prilosec OTC = 20 mg, By Mouth, 2 times a day, 0 Refills, 09/30/07 16:31:42 EDT Start Date: 09/30/07 Status: Ordered Tylenol Tablet 650, mg, By Mouth, Every 4 hours, 0, 0, 09/30/07 16:32:46, Print SVETLANA Number, [id number], Constant Indicator Start Date: 09/30/07 Status: Ordered Vitamin B-12 Inj 0 Refills, Maintenance, 04/04/22 8:03:00 EST, Partial fill upon patient request if the prescriptionis for a schedule II opioid drug. Start Date: 04/04/22 Status: Ordered Vitamin C = 1,000 mg, By Mouth, Daily, 0 Refills, Maintenance, 07/07/17 9:34:21 EDT Start Date: 07/07/17 Status: Ordered Vitamin E Capsule 400, International_Units, By Mouth, Daily, 0, 0, 09/30/07 16:32:12, Print SVETLANA Number, [id number],Constant Indicator Start Date: 09/30/07 Status: Ordered Problem List Condition Confirmation Course Effective Dates Status Health Status Informant Eddy palsy Confirmed Active Constipation Confirmed Active Depression Confirmed Active Diabetes mellitus type 2 Confirmed Active Gastritis Confirmed Active GERD - Gastro-esophageal reflux disease Confirmed Active Hypercholesterolemia Confirmed Active Hypertension Confirmed Active Hypothyroid Confirmed Active Irritable bowel Confirmed Active Osteoporosis Confirmed Active Ovarian mass Confirmed Active Stroke Confirmed Active Social History Social History Type Response Smoking Status Former smoker, quit more than 30 days ago entered on: 10/31/18 Sex Patient Care team information Care Team Personnel Name: Sangeetha Sage MD Position: [facility] Physician (General Medicine) Member Role: PCP Address: Address: [address] [place] [address]- Care Team Related Persons Name: NICANOR MORTENSEN Address: home [address] [facility] [employer] [place] [place] [address] Name: SHERMAN SWAIN Address: home 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
--- OUTSIDE RECORDS SUMMARY | 2023-09-20 14:25 | XMS_ITS | Continuity of Care Document ---
Author Organization [facility]ITOR WORK[facility] Oncolog y Address [address] [place] [address]- Care Team Providers Care Beauty Artist Name Role Phone Sangeetha Sage MD Primary Care Physician Encounter [facility] Date(s): 03/06/23 - 04/05/23 [facility] MONITOR WORKER Oncology [address] [place] [address] Attending Physician: AdmArleen greene Admitting Physician: Admtr, Arleen Referring Physician: Admtr, Ar8 Allergies, Adverse Reactions, [...] 0 Refills, Maintenance, 02/18/23 11:32:00 EST, Tablet, [facility], Partial fill upon patient [...] 0Refills, Maintenance, 02/18/23 11:32:00 EST, REC Powder, [facility], Partial fill upon patient [...] 02/17/23 15:56:00 EST, Route to Pharmacy Electronically, [facility], Partial fill upon patient request if the prescription is for a schedule II opioi... Start Date: 02/17/23 Status: Ordered senna 187 mg oral tablet 2 tablet = 17.2 mg, By Mouth, Daily, PRN as needed for constipation, # 30 tablet, 0 Refills, Maintenance, 02/18/23 11:32:00 EST, Tablet, [facility], Partial fill upon patient [...] Team Personnel Name: Fritz Rodriguez RN Position: [facility] RN Member Role: Primary Care Nurse Name: Ilsa Harden LPN Position: S RN Member Role: Primary Care Nurse Name: Cordelia Clay RN Position: [facility] RN Member Role: Primary Care Nurse Name: Joby Prabhakar RN Position: [facility] RN Member Role: Primary Care Nurse Name: Nga Hsu RN Position: [facility] RN Member Role: Primary Care Nurse Name: Sangeetha Sage MD Position: [facility] Physician - Primary Care Member Role: PCP Address: Address: [address] [place] [id number]- Name: Aura Ta LPN Position: S RN Member Role: Primary Care Nurse Care Team Related Persons Name: NICANOR MORTENSEN DIRECTOR Address: home [address] [facility] LICENSED [employer]ACTICAL [place] [address] Name: SHERMAN SWAIN
[2023-09-20 14:41] LABS: MANUAL DIFF FLAG NO
[2023-09-20 14:44] LABS: Basophils Percent Auto 0.5 % (0-2); Eosinophils Absolute Auto 0.1 X10*3/uL (0.0-0.4); Eosinophils Percent Auto 2.2 % (0-4); Hematocrit 24.3 % (37.0-47.0); Hemoglobin 7.2 g/dl (12.0-16.0); Imm Gran Abs Auto 0.03 X10*3/uL (0.00-0.03); Imm Gran Pct Auto 0.5 % (0.0-0.4); Lymphocytes Absolute Auto 0.7 X10*3/uL (1.2-4.9); Mean Corpuscular HGB Conc 29.6 g/dl (31.0-35.0); Mean Corpuscular Hemoglobin 22.2 pg (27.0-33.0); Mean Corpuscular Volume 74.8 fL (80.0-98.0); Mean Platelet Volume 9.7 fL (9.4-12.3); Monocytes Absolute Auto 0.5 X10*3/uL (0.1-1.2); Monocytes Percent Auto 8.3 % (2-11); Neutrophils Absolute Auto 4.6 x10*3/uL (2.0-8.3); Neutrophils Percent Auto 77.5 % (45-73); Platelet Count 247 X10*3/uL (160-400); Red Blood Count 3.25 X10*6/uL (4.20-5.50); Red Cell Distribution Width 19.1 % (11.0-16.0); White Blood Count 5.9 X10*3/uL (4.8-10.8)
[2023-09-20 14:57] LABS: Alanine Aminotransferase 13 U/L (0-31); Albumin Level 2.9 g/dL (3.5-5.0); Alkaline Phosphatase 56 U/L (39-117); Anion Gap 12 (12-20); Aspartate Amino Transferase 33 U/L (5-31); Bilirubin Direct 0.2 mg/dL (0.0-0.5); Bilirubin Total 0.5 mg/dL (0.0-1.0); Blood Urea Nitrogen 16 mg/dL (9-16); Calcium 8.6 mg/dL (8.4-10.2); Carbon Dioxide 27 mmol/L (22-29); Chloride 104 mmol/L (96-108); Creatinine Clr Calc Pharmacy 72.5; Estimated Glomerular Filt Rate > 60; Glucose Random 163 mg/dL (60-115); Magnesium 2.2 mg/dL (1.6-2.6); Potassium 3.6 mmol/L (3.3-5.1); Sodium 139 mmol/L (135-145); Total Protein 5.5 g/dL (6.5-8.0)
--- NOTE | 2023-09-20 15:06 | ED_ITS ---
HPI - General Adult General Chief complaint: General Medical Stated complaint: LOW HH, WANTS BLOOD TRANS, FROM [facility] Time Seen by Provider: 09/20/23 14:00 Source: patient, EMS and old records reviewed Mode of arrival: EMS History of Present Illness ED Provider: BAUTISTA RIVERS narrative: 78 yo female with PMH of DM, HTN, pneumonia, HLD, CVA on aspirin and plavix s/p L fem neck fracture and L hip hemiarthroplasty on 09/[address] [facility] since and doing okay but she is pretty weak. She is still on aspirin and plavix. She denies GIB symptoms. She was sent in for hemoglobin 6.7. She denies chest pain/sob. Sent in for transfusion. MD complaint: anemia Onset (ago): day(s) (1) Radiation: non-radiation Severity: mild Relieving factors: rest Exacerbating factors: movement Associated symptoms: other (fatigue) Treatments prior to arrival: none Related Data Home Medications ?Medication ?Instructions ?Recorded ?Confirmed aspirin 81 mg tablet,delayed 81 mg PO BEDTIME 10/13/21 09/15/23 release (Adult Low Dose Aspirin) atenolol 50 mg tablet 50 mg PO BEDTIME 10/13/21 09/15/23 atorvastatin 20 mg tablet 20 mg PO DAILY 10/13/21 09/15/23 levothyroxine 88 mcg tablet 88 mcg PO DAILY@0600 10/13/21 09/15/23 omega-3 fatty acids 1,000 mg 1,000 mg PO DAILY 10/13/21 09/15/23 capsule lisinopril 20 mg tablet 20 mg PO BEDTIME 03/23/22 09/15/23 calcium carbonate (Oyster Shell 500 mg PO BEDTIME 08/07/22 09/15/23 Calcium) docusate sodium 100 mg capsule 100 mg PO DAILY 12/21/22 09/15/23 clotrimazole 1 % topical cream 1 appl topical BID PRN Rash Under 09/15/23 09/15/23 Breast cyanocobalamin (vitamin B-12) 1,000 mcg subcut QMONTH 09/15/23 09/15/23 1,000 mcg/mL injection solution hydrocortisone 2.5 % topical 1 appl topical BID PRN Rash 09/15/23 09/15/23 ointment Face/Neck polyethylene glycol 3350 17 17 g PO DAILY 09/15/23 09/15/23 gram/dose oral powder sennosides 8.6 mg tablet (senna) 17.2 mg PO DAILY PRN Constipation 09/15/23 09/15/23 Previous Rx's ?Medication ?Instructions ?Recorded clopidogrel 75 mg tablet (Plavix) 75 mg PO DAILY #30 tabs 08/09/22 tamsulosin 0.4 mg capsule 0.4 mg PO DAILY #30 caps 08/09/22 oxycodone 5 mg tablet 5 mg PO Q4H PRN Pain, 09/19/23 Moderate(Pain Scale 4-6) #40 tabs Allergies Allergy/AdvReac Type Severity Reaction Status Date / Time propoxyphene [From Darvon] Allergy Mild UNKNOWN Verified 09/20/23 14:09 alteplase AdvReac Intermediate Itching Verified 09/20/23 14:09 metformin [Metformin] AdvReac Mild DIARRHEA, Verified 09/20/23 14:09 RASH Review of Systems 2 Review of Systems: Constitutional : No Fever, No Chills, pos Fatigue ENT/Mouth : No sore throat, No Rhinorrhea Eyes: No Eye Pain, No Swelling, No Redness Cardiovascular : No Chest Pain, No SOB, No Dyspnea on Exertion Respiratory : No Cough, No Sputum Gastrointestinal : No Nausea, No Vomiting, No Diarrhea, No abdominal Pain Genitourinary : No Dysuria, No Urinary Frequency, No Hematuria, Musculoskeletal : No joint pain, No Myalgias, No Joint Swelling Skin : No Skin Lesions, No rash Neuro : No Weakness, No Numbness, No Dizziness, no Headache Psych : No Anxiety/Panic, No Depression All other systems reviewed and are negative [facility] Past Medical History Attestation statement: The following information was validated with the patient. Source: old records reviewed Medical History Hypertension Type 2 diabetes mellitus Anemia Thrombocytopenia Cerebrovascular accident Adnexal mass Occult GI bleeding Adult failure to thrive COVID-19 virus infection Major depressive disorder Intellectual disability Ischemic stroke Hernia Hypothyroidism Osteoporosis GERD (gastroesophageal reflux disease) High blood pressure Surgical History History of rectal surgery Social History Social History Household Members: None Housing: House Housing Other:: hotel Do you presently have visiting nurse or other home services: Yes Alcohol intake: never Comment: COUNTS CORRECT Patient Tobacco Use Status: Former Tobacco user Tobacco use type: Cigarette e-Cigarette/Vaping Use: Former Use Second Hand Smoke Exposure: No Advance Directives: Yes Advance Directives on File: Yes Advance Directives Date on File: 08/07/22 Do you have a plan to hurt others: No Plan service: No Current occupational status: retired and disabled Physical Exam ED Vital Signs: Vital Signs - 24 hr 09/20/23 14:07 09/20/23 14:13 09/20/23 14:39 Temperature 98.4 F 98.4 F 98.3 F Pulse Rate 75 75 74 Respiratory Rate 18 18 17 Blood Pressure 106/54 L 106/54 L 107/57 L Pulse Oximetry 97 97 98 Oxygen Delivery Method Nasal Cannula Nasal Cannula Nasal Cannula Oxygen Flow Rate 2 BMI result Body Mass Index 24.3 Appearance: Alert. Oriented X3. No acute distress. Eyes: Pupils equal, round and reactive to light. ENT: Pharynx normal. Neck: Normal inspection. Neck supple. CVS: Normal heart rate and rhythm. Pulses normal. Respiratory: No respiratory distress. Breath sounds normal. Abdomen: Soft and non-tender. Skin: Skin warm and dry. pale skin color. Normal skin turgor. Extremities: No lower extremity edema. Neuro: Oriented X 3. No motor deficit. No sensory deficit. Medical Decision Making Medical Decision Making [facility] Narrative: 78 yo female with PMH of DM, HTN, pneumonia, HLD, CVA on aspirin and plavix s/p L fem neck fracture and L hip hemiarthroplasty on 09/16 here with c/o post operative anemia at this time will repeat labs, transfuse one unit of blood and monitor. No CP/SOB no EKG changes not toxic. Anticipate DC back with repeat CBC tomorrow Differential Diagnosis Differential Diagnoses: The differential diagnosis associated with the presentation includes post operative anemia though it is improved from this AM Admission/Observation Consideration of admission/observation: Escalation of care including admission/observation considered physician observation started at 325pm pending transfusion - can go back to [facility] post transfusion Lab Data [facility] Lab Attestation statement: I reviewed the patient's lab results. 09/20/23 14:36 09/20/23 14:36 Labs: Lab Results 09/20/23 Range/Units 14:36 WBC 5.9 (4.8-10.8) X10*3/uL RBC 3.25 L (4.20-5.50) X10*6/uL Hgb 7.2 L (12.0-16.0) g/dl Hct 24.3 L (37.0-47.0) % MCV 74.8 L (80.0-98.0) fL MCH 22.2 L (27.0-33.0) pg MCHC 29.6 L (31.0-35.0) g/dl RDW 19.1 H (11.0-16.0) % Plt Count 247 D (160-400) X10*3/uL MPV 9.7 (9.4-12.3) fL Immature Gran % (Auto) 0.5 H (0.0-0.4) % Neut % (Auto) 77.5 H (45-73) % Lymph % (Auto) 11.0 L (20-40) % [place] % (Auto) 8.3 (2-11) % Eos % (Auto) 2.2 (0-4) % Baso % (Auto) 0.5 (0-2) % Lymph # (Auto) 0.7 L (1.2-4.9) X10*3/uL [place] # (Auto) 0.5 (0.1-1.2) X10*3/uL Eos # (Auto) 0.1 (0.0-0.4) X10*3/uL Baso # (Auto) 0.0 (0.0-0.2) X10*3/uL Abs Immat Gran (auto) 0.03 (0.00-0.03) X10*3/uL Absolute Neuts (auto) 4.6 (2.0-8.3) x10*3/uL Absolute Nucleated RBC 0.000 (0.0-0.012) X10*3/uL Nucleated RBC % (auto) 0.0 (0.0-0.2) /100WBC Sodium 139 (135-145) mmol/L Potassium 3.6 (3.3-5.1) mmol/L Chloride 104 (96-108) mmol/L Carbon Dioxide 27 (22-29) mmol/L Anion Gap 12 (12-20) BUN 16 (9-16) mg/dL Creatinine 0.52 (0.5-1.4) mg/dL Estim Creat Clear Calc 72.5 Estimated GFR > 60 Random Glucose 163 H (60-115) mg/dL Calcium 8.6 (8.4-10.2) mg/dL Magnesium 2.2 (1.6-2.6) mg/dL Total Bilirubin 0.5 (0.0-1.0) mg/dL Direct Bilirubin 0.2 (0.0-0.5) mg/dL AST 33 H (5-31) U/L ALT 13 (0-31) U/L Alkaline Phosphatase 56 (39-117) U/L Total Protein 5.5 L (6.5-8.0) g/dL Albumin 2.9 L (3.5-5.0) g/dL Blood Type A Positive Crossmatch See Detail Independent Interpretation I performed an independent interpretation of an: EKG Interpretation: Rate:75 Rhythm: NSR [place]: left Normal P waves. Normal TAYLER. RBBB ST T wave : inverted t waves V1-V4, no EDDIE, inverted t waves inf leads qTC: 455 prior studies: no change from prior The study has been interpreted contemporaneously by me. . Independent Historian Clinical information obtained from an independent historian. History obtained from or confirmed by: EMS External Record Review External record reviewed: Inpatient record and Prior outpatient labs Discharge Plan Discharge Clinical Impression: Postoperative anemia Patient Disposition: Still a Patient Instructions: Anemia (ED), Blood Transfusion (DC) Additional Instructions: return for worsening symptoms hemoglobin 7.2 prior to one unit of blood repeat hemoglobin tomorrow chemistry and EKG reasuring Prescriptions: No Action lisinopril 20 mg tablet 20 mg PO BEDTIME calcium carbonate [Oyster Shell Calcium] 500 mg calcium (1,250 mg) Tablet 500 mg PO BEDTIME tamsulosin 0.4 mg Capsule 0.4 mg PO DAILY Qty: 30 0RF clopidogrel [Plavix] 75 mg tablet 75 mg PO DAILY Qty: 30 0RF sennosides [senna] 8.6 mg Tablet 17.2 mg PO DAILY PRN (Reason: Constipation) cyanocobalamin (vitamin B-12) 1,000 mcg/mL Solution 1,000 mcg SUBCUT QMONTH polyethylene glycol 3350 17 gram/dose Powder 17 g PO DAILY hydrocortisone 2.5 % ointment 1 appl topical BID PRN (Reason: Rash Face/Neck) Rx Instructions: To face and neck as needed for flares clotrimazole 1 % cream 1 appl topical BID PRN (Reason: Rash Under Breast) oxycodone 5 mg Tablet 5 mg PO Q4H PRN (Reason: Pain, Moderate(Pain Scale 4-6)) Qty: 40 0RF Rx Instructions: Partial Fill upon patient request. atorvastatin 20 mg tablet 20 mg PO DAILY levothyroxine 88 mcg tablet 88 mcg PO DAILY@0600 omega-3 fatty acids 1,000 mg capsule 1,000 mg PO DAILY atenolol 50 mg tablet 50 mg PO BEDTIME aspirin [Adult Low Dose Aspirin] 81 mg tablet,delayed release (DR/EC) 81 mg PO BEDTIME docusate sodium 100 mg capsule 100 mg PO DAILY Print Language: Chilean
--- NOTE | 2023-09-20 16:38 | PC.NURSE ---
Second IV access placed prior to blood transfusion- 20G to L wrist. Well tolerated.
--- NOTE | 2023-09-20 16:52 | PC.NURSE ---
Blood transfusion started. Tolerating well. At bedside for initial 15 minutes
--- NOTE | 2023-09-20 18:23 | PC.NURSE ---
Repeat CBC sent as ordered
[2023-09-20 18:26] LABS: MANUAL DIFF FLAG NO
[2023-09-20 18:30] LABS: Basophils Percent Auto 0.7 % (0-2); Eosinophils Absolute Auto 0.2 X10*3/uL (0.0-0.4); Eosinophils Percent Auto 3.7 % (0-4); Hematocrit 25.2 % (37.0-47.0); Hemoglobin 7.5 g/dl (12.0-16.0); Imm Gran Abs Auto 0.02 X10*3/uL (0.00-0.03); Imm Gran Pct Auto 0.4 % (0.0-0.4); Lymphocytes Absolute Auto 0.7 X10*3/uL (1.2-4.9); Lymphocytes Percent Auto 12.3 % (20-40); Mean Corpuscular HGB Conc 29.8 g/dl (31.0-35.0); Mean Corpuscular Hemoglobin 23.2 pg (27.0-33.0); Mean Platelet Volume 9.9 fL (9.4-12.3); Monocytes Absolute Auto 0.6 X10*3/uL (0.1-1.2); Monocytes Percent Auto 10.3 % (2-11); Neutrophils Percent Auto 72.6 % (45-73); Platelet Count 214 X10*3/uL (160-400); Red Blood Count 3.23 X10*6/uL (4.20-5.50); Red Cell Distribution Width 20.5 % (11.0-16.0); White Blood Count 5.4 X10*3/uL (4.8-10.8)
--- NOTE | 2023-09-20 19:07 | ED.GENADULT ---
HPI - General Adult General Chief complaint: General Medical Stated complaint: LOW HH, WANTS BLOOD TRANS, FROM [facility] Time Seen by Provider: 09/20/23 14:00 Source: patient, EMS and old records reviewed Mode of arrival: EMS History of Present Illness Relieving factors: rest Exacerbating factors: movement Associated symptoms: other (fatigue) Treatments prior to arrival: none Related Data Home Medications ?Medication ?Instructions ?Recorded ?Confirmed aspirin 81 mg tablet,delayed 81 mg PO BEDTIME 10/13/21 09/15/23 release (Adult Low Dose Aspirin) atenolol 50 mg tablet 50 mg PO BEDTIME 10/13/21 09/15/23 atorvastatin 20 mg tablet 20 mg PO DAILY 10/13/21 09/15/23 levothyroxine 88 mcg tablet 88 mcg PO DAILY@0600 10/13/21 09/15/23 omega-3 fatty acids 1,000 mg 1,000 mg PO DAILY 10/13/21 09/15/23 capsule lisinopril 20 mg tablet 20 mg PO BEDTIME 03/23/22 09/15/23 calcium carbonate (Oyster Shell 500 mg PO BEDTIME 08/07/22 09/15/23 Calcium) docusate sodium 100 mg capsule 100 mg PO DAILY 12/21/22 09/15/23 clotrimazole 1 % topical cream 1 appl topical BID PRN Rash Under 09/15/23 09/15/23 Breast cyanocobalamin (vitamin B-12) 1,000 mcg subcut QMONTH 09/15/23 09/15/23 1,000 mcg/mL injection solution hydrocortisone 2.5 % topical 1 appl topical BID PRN Rash 09/15/23 09/15/23 ointment Face/Neck polyethylene glycol 3350 17 17 g PO DAILY 09/15/23 09/15/23 gram/dose oral powder sennosides 8.6 mg tablet (senna) 17.2 mg PO DAILY PRN Constipation 09/15/23 09/15/23 Previous Rx's ?Medication ?Instructions ?Recorded clopidogrel 75 mg tablet (Plavix) 75 mg PO DAILY #30 tabs 08/09/22 tamsulosin 0.4 mg capsule 0.4 mg PO DAILY #30 caps 08/09/22 oxycodone 5 mg tablet 5 mg PO Q4H PRN Pain, 09/19/23 Moderate(Pain Scale 4-6) #40 tabs Allergies Allergy/AdvReac Type Severity Reaction Status Date / Time propoxyphene [From Darvon] Allergy Mild UNKNOWN Verified 09/20/23 14:09 alteplase AdvReac Intermediate Itching Verified 09/20/23 14:09 metformin [Metformin] AdvReac Mild DIARRHEA, Verified 09/20/23 14:09 RASH PMFSH Past Medical History Medical History Hypertension Type 2 diabetes mellitus Anemia Thrombocytopenia Cerebrovascular accident Adnexal mass Occult GI bleeding Adult failure to thrive COVID-19 virus infection Major depressive disorder Intellectual disability Ischemic stroke Hernia Hypothyroidism Osteoporosis GERD (gastroesophageal reflux disease) High blood pressure Surgical History History of rectal surgery Social History Social History Household Members: None Housing: House Housing Other:: hotel Do you presently have visiting nurse or other home services: Yes Alcohol intake: never Comment: COUNTS CORRECT Patient Tobacco Use Status: Former Tobacco user Tobacco use type: Cigarette Smoked in Last 30 Days: No e-Cigarette/Vaping Use: Former Use Second Hand Smoke Exposure: No Use of substances other than those prescribed or required for medical reasons: No Advance Directives: Yes Advance Directives on File: Yes Advance Directives Date on File: 08/07/22 Do you have a plan to hurt others: No Plan service: No Current occupational status: retired and disabled Physical Exam ED Vital Signs: Vital Signs - 24 hr 09/20/23 14:07 09/20/23 14:13 09/20/23 14:39 Temperature 98.4 F 98.4 F 98.3 F Pulse Rate 75 75 74 Respiratory Rate 18 18 17 Blood Pressure 106/54 L 106/54 L 107/57 L Pulse Oximetry 97 97 98 Oxygen Delivery Method Nasal Cannula Nasal Cannula Nasal Cannula Oxygen Flow Rate 2 09/20/23 16:00 09/20/23 16:39 09/20/23 16:44 Temperature 98.3 F 98.1 F Pulse Rate 72 72 74 Respiratory Rate 19 20 17 Blood Pressure 105/61 111/60 111/58 L Pulse Oximetry 99 99 Oxygen Delivery Method Nasal Cannula Room Air Oxygen Flow Rate 2 09/20/23 16:58 09/20/23 17:05 09/20/23 18:00 Temperature 98.7 F Pulse Rate 73 72 73 Respiratory Rate 19 15 Blood Pressure 114/61 113/61 123/65 Pulse Oximetry 100 100 Oxygen Delivery Method Room Air Nasal Cannula Oxygen Flow Rate 2 09/20/23 18:17 09/20/23 19:36 09/20/23 19:47 Temperature 98.4 F 98.5 F Pulse Rate 72 78 Respiratory Rate 20 20 16 Blood Pressure 124/69 132/71 Pulse Oximetry Oxygen Delivery Method Oxygen Flow Rate 09/20/23 20:06 09/20/23 21:25 09/20/23 21:28 Temperature 98.4 F 99.0 F 99.0 F Pulse Rate 79 77 80 Respiratory Rate 16 20 16 Blood Pressure 108/54 L 122/69 122/69 Pulse Oximetry 100 Oxygen Delivery Method Room Air Oxygen Flow Rate 09/20/23 22:56 09/20/23 23:12 Temperature 98.6 F 98.4 F Pulse Rate 75 87 Respiratory Rate 18 16 Blood Pressure 122/64 124/65 Pulse Oximetry Oxygen Delivery Method Oxygen Flow Rate BMI result Body Mass Index 24.3 Medications Administered Discontinued Medications Generic Name Dose Route Start Last Admin Trade Name Freq PRN Reason Stop Dose Admin Sodium Chloride 100 mls @ 100 mls/hr 09/20/23 14:20 09/20/23 18:13 Ns IV 09/20/23 15:19 Infused ONCE ONE Infusion Sodium Chloride 100 mls @ 100 mls/hr 09/20/23 19:06 09/21/23 00:56 Ns IV 09/20/23 20:05 Infused ONCE ONE Infusion Iohexol 100 ml 09/20/23 19:33 09/20/23 19:33 Iohexol 350 Mg/Ml 100 Ml Infus..Btl IV 09/20/23 19:34 85 ml ONCE ONE Administration Morphine Sulfate 2 mg 09/20/23 19:29 09/20/23 19:36 Morphine Sulfate 4 Mg/Ml Cartridge IVPUSH 09/20/23 19:30 2 mg ONCE ONE Administration Protocol Medical Decision Making Lab Data 09/20/23 20:37 09/20/23 14:36 Labs: Lab Results 09/20/23 09/20/23 09/20/23 Range/Units 14:36 18:23 19:33 WBC 5.9 5.4 (4.8-10.8) X10*3/uL RBC 3.25 L 3.23 L (4.20-5.50) X10*6/uL Hgb 7.2 L 7.5 L (12.0-16.0) g/dl Hct 24.3 L 25.2 L (37.0-47.0) % MCV 74.8 L 78.0 L (80.0-98.0) fL MCH 22.2 L 23.2 L (27.0-33.0) pg MCHC 29.6 L 29.8 L (31.0-35.0) g/dl RDW 19.1 H 20.5 H (11.0-16.0) % Plt Count 247 D 214 (160-400) X10*3/uL MPV 9.7 9.9 (9.4-12.3) fL Immature Gran % (Auto) 0.5 H 0.4 (0.0-0.4) % Neut % (Auto) 77.5 H 72.6 (45-73) % Lymph % (Auto) 11.0 L 12.3 L (20-40) % [place] % (Auto) 8.3 10.3 (2-11) % Eos % (Auto) 2.2 3.7 (0-4) % Baso % (Auto) 0.5 0.7 (0-2) % Lymph # (Auto) 0.7 L 0.7 L (1.2-4.9) X10*3/uL [place] # (Auto) 0.5 0.6 (0.1-1.2) X10*3/uL Eos # (Auto) 0.1 0.2 (0.0-0.4) X10*3/uL Baso # (Auto) 0.0 0.0 (0.0-0.2) X10*3/uL Abs Immat Gran (auto) 0.03 0.02 (0.00-0.03) X10*3/uL Absolute Neuts (auto) 4.6 4.0 (2.0-8.3) x10*3/uL Absolute Nucleated RBC 0.000 0.000 (0.0-0.012) X10*3/uL Nucleated RBC % (auto) 0.0 0.0 (0.0-0.2) /100WBC Absolute Retic (0.026-0.095) X10*6/uL Percent Retic (0.5-1.8) % Immature Retic Fraction (3.0-15.9) % Retic Hgb Equivalent (30.0-35.0) pg PT (11.1-13.3) SEC INR (0.9-1.1) APTT (26.0-36.8) SEC Fibrinogen (259-690) MG/DL Sodium 139 (135-145) mmol/L Potassium 3.6 (3.3-5.1) mmol/L Chloride 104 (96-108) mmol/L Carbon Dioxide 27 (22-29) mmol/L Anion Gap 12 (12-20) BUN 16 (9-16) mg/dL Creatinine 0.52 (0.5-1.4) mg/dL Estim Creat Clear Calc 72.5 Estimated GFR > 60 Random Glucose 163 H (60-115) mg/dL Calcium 8.6 (8.4-10.2) mg/dL Magnesium 2.2 (1.6-2.6) mg/dL Total Bilirubin 0.5 (0.0-1.0) mg/dL Direct Bilirubin 0.2 (0.0-0.5) mg/dL AST 33 H (5-31) U/L ALT 13 (0-31) U/L Alkaline Phosphatase 56 (39-117) U/L Lactate Dehydrogenase (122-220) U/L Total Protein 5.5 L (6.5-8.0) g/dL Albumin 2.9 L (3.5-5.0) g/dL Stool Occult Blood POSITIVE (NEGATIVE) Blood Type A Positive Antibody Screen NEGATIVE STEPHEN, Polyspecific Positive STEPHEN Work-up Crossmatch See Detail 09/20/23 09/20/23 09/20/23 Range/Units 20:36 20:37 23:07 WBC 6.0 (4.8-10.8) X10*3/uL RBC 3.50 L (4.20-5.50) X10*6/uL Hgb 8.5 L (12.0-16.0) g/dl Hct 27.1 L (37.0-47.0) % MCV 77.4 L (80.0-98.0) fL MCH 24.3 L (27.0-33.0) pg MCHC 31.4 (31.0-35.0) g/dl RDW 20.1 H (11.0-16.0) % Plt Count 236 (160-400) X10*3/uL MPV 9.9 (9.4-12.3) fL Immature Gran % (Auto) 0.5 H (0.0-0.4) % Neut % (Auto) 75.7 H (45-73) % Lymph % (Auto) 10.4 L (20-40) % [place] % (Auto) 9.6 (2-11) % Eos % (Auto) 3.3 (0-4) % Baso % (Auto) 0.5 (0-2) % Lymph # (Auto) 0.6 L (1.2-4.9) X10*3/uL [place] # (Auto) 0.6 (0.1-1.2) X10*3/uL Eos # (Auto) 0.2 (0.0-0.4) X10*3/uL Baso # (Auto) 0.0 (0.0-0.2) X10*3/uL Abs Immat Gran (auto) 0.03 (0.00-0.03) X10*3/uL Absolute Neuts (auto) 4.6 (2.0-8.3) x10*3/uL Absolute Nucleated RBC 0.000 (0.0-0.012) X10*3/uL Nucleated RBC % (auto) 0.0 (0.0-0.2) /100WBC Absolute Retic 0.079 (0.026-0.095) X10*6/uL Percent Retic 2.3 H (0.5-1.8) % Immature Retic Fraction 25.8 H (3.0-15.9) % Retic Hgb Equivalent 22.0 L (30.0-35.0) pg PT 13.1 (11.1-13.3) SEC INR 1.1 (0.9-1.1) APTT 24.2 L (26.0-36.8) SEC Fibrinogen > 700 H (259-690) MG/DL Sodium (135-145) mmol/L Potassium (3.3-5.1) mmol/L Chloride (96-108) mmol/L Carbon Dioxide (22-29) mmol/L Anion Gap (12-20) BUN (9-16) mg/dL Creatinine (0.5-1.4) mg/dL Estim Creat Clear Calc Estimated GFR Random Glucose (60-115) mg/dL Calcium (8.4-10.2) mg/dL Magnesium (1.6-2.6) mg/dL Total Bilirubin (0.0-1.0) mg/dL Direct Bilirubin (0.0-0.5) mg/dL AST (5-31) U/L ALT (0-31) U/L Alkaline Phosphatase (39-117) U/L Lactate Dehydrogenase 172 (122-220) U/L Total Protein (6.5-8.0) g/dL Albumin (3.5-5.0) g/dL Stool Occult Blood (NEGATIVE) Blood Type Antibody Screen STEPHEN, Polyspecific NEGATIVE Positive STEPHEN Work-up TNP Crossmatch Discharge Plan Discharge Clinical Impression: Postoperative anemia Patient Disposition: Admitted As Inpatient Additional Instructions: return for worsening symptoms hemoglobin 7.2 prior to one unit of blood repeat hemoglobin tomorrow chemistry and EKG reasuring Print Language: Mozambican
[2023-09-20] MEDS: iohexoL 350 MG/ML 100 ML INFUS..BTL IV (19:33)
[2023-09-20] MEDS: Morphine Sulfate 4 MG/ML CARTRIDGE 2 MG IVPUSH (19:36)
[2023-09-20 19:38] LABS: OBS Int Ctl Valid YES; OBS1 POSITIVE (NEGATIVE)
--- NOTE | 2023-09-20 20:26 | PC.NURSE ---
blood paused per MD
[2023-09-20 20:44] LABS: Basophils Percent Auto 0.5 % (0-2); Eosinophils Absolute Auto 0.2 X10*3/uL (0.0-0.4); Eosinophils Percent Auto 3.3 % (0-4); Hematocrit 27.1 % (37.0-47.0); Hemoglobin 8.5 g/dl (12.0-16.0); Imm Gran Abs Auto 0.03 X10*3/uL (0.00-0.03); Imm Gran Pct Auto 0.5 % (0.0-0.4); Immature Retic Fraction 25.8 % (3.0-15.9); Lymphocytes Absolute Auto 0.6 X10*3/uL (1.2-4.9); Lymphocytes Percent Auto 10.4 % (20-40); MANUAL DIFF FLAG NO; Mean Corpuscular HGB Conc 31.4 g/dl (31.0-35.0); Mean Corpuscular Hemoglobin 24.3 pg (27.0-33.0); Mean Corpuscular Volume 77.4 fL (80.0-98.0); Mean Platelet Volume 9.9 fL (9.4-12.3); Monocytes Absolute Auto 0.6 X10*3/uL (0.1-1.2); Monocytes Percent Auto 9.6 % (2-11); Neutrophils Absolute Auto 4.6 x10*3/uL (2.0-8.3); Neutrophils Percent Auto 75.7 % (45-73); Platelet Count 236 X10*3/uL (160-400); Red Cell Distribution Width 20.1 % (11.0-16.0); Reticulocyte Percent 2.3 % (0.5-1.8); Reticulocytes Absolute 0.079 X10*6/uL (0.026-0.095)
[2023-09-20 21:00] LABS: Lactate Dehydrogenase 172 U/L (122-220)
[2023-09-20 21:21] LABS: Fibrinogen > 700 MG/DL (259-690)
--- NOTE | 2023-09-20 21:32 | PC.NURSE ---
blood was paused x1hr after development of pettichae under tongue. MD requested blood be held until labs drawn and resulted. at 2125 MD reviewed labs, is NOT concerned about a reaction, and requested blood be restarted.
--- NOTE | 2023-09-20 23:20 | P.HPHOSP_ITS ---
History of Present Illness Date of Service: 09/20/23 Chief Complaint: sent in for low hgb 78F PMH CVA, htn, hypothyroid, urinary retention, DM, chornic anemia, mild to mod Aortic regurgitation, [place] [facility] 09/19/23 for mechanical fall, left femoral neck fracture, underwent left hemiarthroplasy 09/17/23. perioperative period unremarkable other than urinary retention for which she was sent with underwood. patient is unsure why labs drawn, hgb found to be 7.2, sent to ED for transfusion, denies blood in stool. in ED given 2 units, hgb improved to 8.5. no gross blood in stool, occult positive, also noted to have some bleeding under her tongue. Review of Systems 2 Review of Systems: Yes all other systems are reviewed and are negative [facility] Medical History Hypertension Type 2 diabetes mellitus Anemia Thrombocytopenia Cerebrovascular accident Adnexal mass Occult GI bleeding Adult failure to thrive COVID-19 virus infection Major depressive disorder Intellectual disability Ischemic stroke Hernia Hypothyroidism Osteoporosis GERD (gastroesophageal reflux disease) High blood pressure Surgical History History of rectal surgery Social History Household Members: None Housing: House Housing Other:: hotel Do you presently have visiting nurse or other home services: Yes Alcohol intake: never Comment: COUNTS CORRECT Patient Tobacco Use Status: Former Tobacco user Tobacco use type: Cigarette Smoked in Last 30 Days: No e-Cigarette/Vaping Use: Former Use Second Hand Smoke Exposure: No Use of substances other than those prescribed or required for medical reasons: No Advance Directives: Yes Advance Directives on File: Yes Advance Directives Date on File: 08/07/22 Do you have a plan to hurt others: No Plan service: No Current occupational status: retired and disabled Meds Allergies Allergy/AdvReac Type Severity Reaction Status Date / Time propoxyphene [From Darvon] Allergy Mild UNKNOWN Verified 09/20/23 14:09 alteplase AdvReac Intermediate Itching Verified 09/20/23 14:09 metformin [Metformin] AdvReac Mild DIARRHEA, Verified 09/20/23 14:09 RASH Active Medications: Current Medications Acetaminophen (Acetaminophen 325 Mg Tablet) 650 mg PO Q6H PRN PRN Reason: Pain, Mild (Pain Scale 1-3), fever or headache Aspirin (Aspirin Enteric Coated 81 Mg Tablet.Dr) 81 mg PO DAILY [facility] Atenolol (Atenolol 50 Mg Tablet) 50 mg PO BEDTIME RADHA; Protocol Atorvastatin Calcium (Atorvastatin Calcium 20 Mg Tablet) 20 mg PO BEDTIME [facility] Calcium Carbonate (Calcium Carbonate 750 Mg Tab.Chew) 750 mg PO Q4H PRN PRN Reason: Heartburn Clopidogrel Bisulfate (Clopidogrel Bisulfate 75 Mg Tablet) 75 mg PO DAILY [facility] Cyanocobalamin (Cyanocobalamin (Vitamin B-12) 1,000 Mcg Tablet) 1,000 mcg PO DAILY [facility] Docusate Sodium (Docusate Sodium 100 Mg Capsule) 100 mg PO DAILY [facility] Levothyroxine Sodium (Levothyroxine Sodium 88 Mcg Tablet) 88 mcg PO DAILY@0600 [facility] Lisinopril (Lisinopril 20 Mg Tablet) 20 mg PO DAILY [facility]; Protocol Magnesium Hydroxide (Milk Of Magnesia 30 Ml Oral.Susp) 30 ml PO DAILY PRN PRN Reason: Constipation Melatonin (Melatonin 3 Mg Tablet) 6 mg PO BEDTIME PRN PRN Reason: Insomnia Sodium Chloride (0.9 % Sodium Chloride Flush 3 Ml Syringe) 3 ml IVFLUSH QSHIFT [facility] Tamsulosin HCl (Tamsulosin Hcl 0.4 Mg Capsule) 0.4 mg PO BEDTIME [facility] Home Medications ?Medication ?Instructions ?Recorded ?Confirmed ?Last Taken ?Type aspirin 81 mg tablet,delayed 81 mg PO BEDTIME 10/13/21 09/15/23 09/15/23 06:00 History release (Adult Low Dose Aspirin) atenolol 50 mg tablet 50 mg PO BEDTIME 10/13/21 09/15/23 09/14/23 History atorvastatin 20 mg tablet 20 mg PO DAILY 10/13/21 09/15/23 09/15/23 06:00 History levothyroxine 88 mcg tablet 88 mcg PO DAILY@0600 10/13/21 09/15/23 09/15/23 06:00 History omega-3 fatty acids 1,000 mg 1,000 mg PO DAILY 10/13/21 09/15/23 09/15/23 06:00 History capsule lisinopril 20 mg tablet 20 mg PO BEDTIME 0209/15/23 09/14/23 History calcium carbonate (Oyster Shell 500 mg PO BEDTIME 08/07/22 09/15/23 09/14/23 History Calcium) docusate sodium 100 mg capsule 100 mg PO DAILY 12/21/22 09/15/23 09/15/23 06:00 History clotrimazole 1 % topical cream 1 appl topical BID PRN Rash Under 09/15/23 09/15/23 Unknown History Breast cyanocobalamin (vitamin B-12) 1,000 mcg subcut QMONTH 09/15/23 09/15/23 Unknown History 1,000 mcg/mL injection solution hydrocortisone 2.5 % topical 1 appl topical BID PRN Rash 09/15/23 09/15/23 Unknown History ointment Face/Neck polyethylene glycol 3350 17 17 g PO DAILY 09/15/23 09/15/23 09/15/23 06:00 History gram/dose oral powder sennosides 8.6 mg tablet (senna) 17.2 mg PO DAILY PRN Constipation 09/15/23 09/15/23 Unknown History Physical Exam 2 Vital Signs and Narrative: Vital Signs: Last Vital Signs Temp 98.6 F 09/20/23 22:56 Pulse 75 09/20/23 22:56 Resp 18 09/20/23 22:56 BP 122/64 09/20/23 22:56 Pulse Ox 100 09/20/23 21:28 O2 Del Method Room Air 09/20/23 21:28 O2 Flow Rate 2 09/20/23 18:00 Oxygen Flow Rate 2 09/20/23 14:07 BMI result Body Mass Index 24.3 General: AO X 3, no acute distress, echymosis under tongue Resp: CTA bilateral, no accessory muscles used CVS: S1,S2,RRR GI: soft, non tender, non distended Neuro: motor grossly intact, alert Psych: appropriate affect, appropriate insight Results Labs 09/20/23 20:37 09/20/23 14:36 Labs: Laboratory Results - last 24 hr 09/20/23 09/20/23 09/20/23 14:36 18:23 19:33 MCV 74.8 L 78.0 L MCH 22.2 L 23.2 L MCHC 29.6 L 29.8 L RDW 19.1 H 20.5 H Plt Count 247 D 214 MPV 9.7 9.9 Immature Gran % (Auto) 0.5 H 0.4 Neut % (Auto) 77.5 H 72.6 Lymph % (Auto) 11.0 L 12.3 L Stevens % (Auto) 8.3 10.3 Eos % (Auto) 2.2 3.7 Baso % (Auto) 0.5 0.7 Lymph # (Auto) 0.7 L 0.7 L Stevens # (Auto) 0.5 0.6 Eos # (Auto) 0.1 0.2 Baso # (Auto) 0.0 0.0 Abs Immat Gran (auto) 0.03 0.02 Absolute Neuts (auto) 4.6 4.0 Absolute Nucleated RBC 0.000 0.000 Nucleated RBC % (auto) 0.0 0.0 Absolute Retic Percent Retic Immature Retic Fraction Retic Hgb Equivalent Fibrinogen Anion Gap 12 Estim Creat Clear Calc 72.5 Estimated GFR > 60 Random Glucose 163 H Calcium 8.6 Magnesium 2.2 Total Bilirubin 0.5 Direct Bilirubin 0.2 AST 33 H ALT 13 Alkaline Phosphatase 56 Lactate Dehydrogenase Total Protein 5.5 L Albumin 2.9 L Stool Occult Blood POSITIVE Blood Type A Positive Antibody Screen NEGATIVE STEPHEN, Polyspecific Positive STEPHEN Work-up Crossmatch See Detail 09/20/23 09/20/23 20:36 20:37 MCV 77.4 L MCH 24.3 L MCHC 31.4 RDW 20.1 H Plt Count 236 MPV 9.9 Immature Gran % (Auto) 0.5 H Neut % (Auto) 75.7 H Lymph % (Auto) 10.4 L Stevens % (Auto) 9.6 Eos % (Auto) 3.3 Baso % (Auto) 0.5 Lymph # (Auto) 0.6 L Stevens # (Auto) 0.6 Eos # (Auto) 0.2 Baso # (Auto) 0.0 Abs Immat Gran (auto) 0.03 Absolute Neuts (auto) 4.6 Absolute Nucleated RBC 0.000 Nucleated RBC % (auto) 0.0 Absolute Retic 0.079 Percent Retic 2.3 H Immature Retic Fraction 25.8 H Retic Hgb Equivalent 22.0 L Fibrinogen > 700 H Anion Gap Estim Creat Clear Calc Estimated GFR Random Glucose Calcium Magnesium Total Bilirubin Direct Bilirubin AST ALT Alkaline Phosphatase Lactate Dehydrogenase 172 Total Protein Albumin Stool Occult Blood Blood Type Antibody Screen STEPHEN, Polyspecific NEGATIVE Positive STEPHEN Work-up TNP Crossmatch Imaging Radiologist's Impressions: Impressions Hip CT 09/20/23 19:32 IMPRESSION: 1. Expected postoperative changes as above. No evidence for any pseudoaneurysm or active extravasation of contrast. 2. Large cystic lesion within the left pelvis as above. Pelvic ultrasound recommended. Assessment and Plan (1) Postoperative anemia: Status: Acute Plan 78F PMH CVA, htn, hypothyroid, urinary retention, chornic anemia, mild to mod Aortic regurgitation sent for anemia acute on chronic blood loss anemia transfused 2 units in ED, follow up cbc in am history of cva no gross bleeding will continue dapl, statin hypothyroid synthroid DM diet controlled htn lisinopril dvt prophylaxis - mechanical due to concern for bleeding/anemia dnr/dni Quality Stroke Does the patient have a stroke diagnosis?: No VTE Prior VTE?: No VTE Risk Level:: Medical - moderate - high VTE Device Contraindication: N/A - Device Ordered VTE Drug Contraindication: Treatment Not Tolerated
[2023-09-20 23:23] LABS: INTERNATIONAL NORM RATIO 1.1 (0.9-1.1); Prothrombin Time 13.1 SEC (11.1-13.3)
[2023-09-20 23:26] LABS: Partial Thromboplastin Time 24.2 SEC (26.0-36.8)
--- NOTE | 2023-09-20 23:28 | MHC.EDTECH ---
1000ml of urine emptied from Pts underwood bag
[2023-09-21] VITALS (8 sets, daily range): BP systolic 112–151; BP diastolic 60–86; PULSE 83–99; RESP 14–18; TEMP 36.1–36.6; O2SAT 94–96
[2023-09-21] MEDS: 0.9 % Sodium Chloride Flush 3 ML SYRINGE IVFLUSH ×3 (00:15→21:39)
[2023-09-21] MEDS: Levothyroxine Sodium 88 MCG TABLET PO (05:49)
[2023-09-21] MEDS: Acetaminophen 325 MG TABLET 650 MG PO ×2 (05:49→14:32)
[2023-09-21 06:18] LABS: Hematocrit 33.1 % (37.0-47.0); Hemoglobin 10.4 g/dl (12.0-16.0); Mean Corpuscular HGB Conc 31.4 g/dl (31.0-35.0); Mean Corpuscular Hemoglobin 24.6 pg (27.0-33.0); Mean Corpuscular Volume 78.3 fL (80.0-98.0); Mean Platelet Volume 9.8 fL (9.4-12.3); Platelet Count 241 X10*3/uL (160-400); Red Blood Count 4.23 X10*6/uL (4.20-5.50); Red Cell Distribution Width 19.9 % (11.0-16.0); White Blood Count 6.4 X10*3/uL (4.8-10.8)
[2023-09-21 06:32] LABS: Anion Gap 13 (12-20); Blood Urea Nitrogen 17 mg/dL (9-16); Calcium 8.7 mg/dL (8.4-10.2); Carbon Dioxide 24 mmol/L (22-29); Chloride 106 mmol/L (96-108); Creatinine Clr Calc Pharmacy 80.2; Estimated Glomerular Filt Rate > 60; Glucose Fasting 116 mg/dL (60-99); Potassium 3.8 mmol/L (3.3-5.1); Sodium 139 mmol/L (135-145)
--- NOTE | 2023-09-21 07:30 | PC.NURSE ---
patient resting quietly in bed, respirations equal and unlabored, skin dry and intact. patient blake underwood cath in place. patient denied breakfast this morning. VSS
--- NOTE | 2023-09-21 09:17 | PHA.MEDREC ---
Addendum entered by Bear Haynes [facility] 09/21/23 09:40: MED REC DOUBLE CHECKED BY PHARMACY Original Note: Pharmacy Consult ? Medication Reconciliation Pharmacy has completed the medication reconciliation. Patient recently seen and had med rec done 09/19/23. I used the discharge packet to verify any changes in anything. Patient was a little confused when I was speaking to her but stated she had no changes from last discharge date. She also started an Oxycodone 5mg tab 1 Q4H PRNP, but she states its not helping a lot with the pain while taking them. The patient was un-sure the last time she took the medications at home.
--- NOTE | 2023-09-21 09:38 | MHC.CM.PN ---
COLE DELIVERED.. PT IS CURRENTLY AT [facility] FOR STR S/P HIP FX. PT PLAN TO RETURN THERE AT DC VIA BLS. RETURN REFERRAL SENT. CM WILL CONTINUE TO FOLLOW FOR ANY CHANGE TO DC PLAN/NEEDS.
[2023-09-21] MEDS: oxyCODONE HCl Immed Release 5 MG TABLET PO ×3 (09:48→21:35)
[2023-09-21] MEDS: lisinopriL 20 MG TABLET PO (09:49)
[2023-09-21] MEDS: Docusate Sodium 100 MG CAPSULE PO (09:49)
[2023-09-21] MEDS: Cyanocobalamin (Vitamin B-12) 1,000 MCG TABLET 1000 MCG PO (09:49)
[2023-09-21] MEDS: Clopidogrel Bisulfate 75 MG TABLET PO (09:49)
[2023-09-21] MEDS: Aspirin Enteric Coated 81 MG TABLET.DR PO (09:49)
--- NOTE | 2023-09-21 15:00 | PM.EVENT ---
Event Note Date of Service: 09/21/23 Event Note: Seen and examined this morning Follow-up for anemia Denies any active bleeding, states she has not have bowel movement for several days. Does not want any laxative 78F PMH CVA, htn, hypothyroid, urinary retention, chronic anemia, mild to mod Aortic regurgitation sent for anemia acute on chronic blood loss anemia transfused 2 units in ED repeat CBC improved GI consult pending s/p left hemiarthroplasty on previous admission Pain control Urinary retention Carver catheter placed on previous admission history of cva no gross bleeding will continue dapt, statin hypothyroid synthroid DM diet controlled Follow POCs, if elevated can add sliding scale htn lisinopril, atenolol dvt prophylaxis - mechanical due to concern for bleeding/anemia dnr/dni Time Spent With Patient Time: Total time managing care of this patient today ____ minutes.
--- NOTE | 2023-09-21 16:02 | P.CNGI_ITS ---
History of Present Illness Data of Consult Service Date: 09/21/23 Requesting physician: Agata Spencer Primary Care Provider: Eb Bone MD HPI Reason for consult: anemia, heme + stools on DAPT 78 year old female with CVA, htn, hypothyroid, urinary retention, DM, chornic anemia, mild to mod Aortic regurgitation, admitted to [facility] on 09/20/23 with acute on chronic anemia Pt was hospitalized at [facility] from 09/14 to 09/19/23 after a fall complicated by left femoral neck fracture and underwent left hemiarthroplasy on 09/17/23. Perioperative course was unremarkable other than urinary retention for which she was sent with underwood. She was transferred to rehab on 09/19/2023 (H & H on 09/18/23 prior to discharge were 8.5 & 28.5) Pt was sent to [facility] ED for a blood transfusion on 09/20/23 after labs revealed H & H of 7.2 & 24.3 Pt was transfused 2 units of PRBC and repeat H&H was 10.4 & 33.1 on 09/21/23 Stool occult blood was positive History obtained from the pt and her caregiver who was at her bedside. Pt denies heartburn, recent change in bowel habits. She has to cut up her food since she does not have teeth or dentures. She denies gross bleeding with bowel movements Pt denies smoking or ETOH abuse Pt reports having a colonoscopy approx 40 yrs ago at [facility] after she had a small bowel obstruction Per pt - colonoscopy did not show any significant findings. Pt is single, has no children and lives in her own home. She has caregivers during the day. Review of Systems 2 Review of Systems: Yes all other systems are reviewed and are negative PMFSH Past Medical History Medical History Hypertension Type 2 diabetes mellitus Anemia Thrombocytopenia Cerebrovascular accident Adnexal mass Occult GI bleeding Adult failure to thrive COVID-19 virus infection Major depressive disorder Intellectual disability Ischemic stroke Hernia Hypothyroidism Osteoporosis GERD (gastroesophageal reflux disease) High blood pressure Surgical History Surgical History History of rectal surgery Social History Social History Household Members: None Housing: House Housing Other:: hotel Do you presently have visiting nurse or other home services: Yes Alcohol intake: never Comment: COUNTS CORRECT Patient Tobacco Use Status: Former Tobacco user Tobacco use type: Cigarette Smoked in Last 30 Days: No e-Cigarette/Vaping Use: Former Use Second Hand Smoke Exposure: No Use of substances other than those prescribed or required for medical reasons: No Advance Directives: Yes Advance Directives on File: Yes Advance Directives Date on File: 08/07/22 Do you have a plan to hurt others: No Plan service: No Current occupational status: retired and disabled Meds Allergies Allergy/AdvReac Type Severity Reaction Status Date / Time propoxyphene [From Darvon] Allergy Mild UNKNOWN Verified 09/20/23 14:09 alteplase AdvReac Intermediate Itching Verified 09/20/23 14:09 metformin [Metformin] AdvReac Mild DIARRHEA, Verified 09/20/23 14:09 RASH Active Medications: Current Medications Acetaminophen (Acetaminophen 325 Mg Tablet) 650 mg PO Q6H PRN PRN Reason: Pain, Mild (Pain Scale 1-3), fever or headache Last Admin: 09/21/23 14:32 Dose: 650 mg Aspirin (Aspirin Enteric Coated 81 Mg Tablet.Dr) 81 mg PO DAILY [facility] Last Admin: 09/21/23 09:49 Dose: 81 mg Atenolol (Atenolol 50 Mg Tablet) 50 mg PO BEDTIME [facility]; Protocol Atorvastatin Calcium (Atorvastatin Calcium 20 Mg Tablet) 20 mg PO BEDTIME [facility] Calcium Carbonate (Calcium Carbonate 750 Mg Tab.Chew) 750 mg PO Q4H PRN PRN Reason: Heartburn Calcium Carbonate (Calcium Oyster Shell Elemental 500 Mg Tablet) 500 mg PO BEDTIME [facility] Clopidogrel Bisulfate (Clopidogrel Bisulfate 75 Mg Tablet) 75 mg PO DAILY [facility] Last Admin: 09/21/23 09:49 Dose: 75 mg Cyanocobalamin (Cyanocobalamin (Vitamin B-12) 1,000 Mcg Tablet) 1,000 mcg PO DAILY [facility] Last Admin: 09/21/23 09:49 Dose: 1,000 mcg Docusate Sodium (Docusate Sodium 100 Mg Capsule) 100 mg PO DAILY [facility] Last Admin: 09/21/23 09:49 Dose: 100 mg Glucose (Glucose Gel 15 Gm Gel..Gram.) 15 gm PO Q15M PRN; Protocol PRN Reason: per Hypoglycemia Standing Ord. Dextrose (D10) 250 mls @ 750 mls/hr IV Q15M PRN; Protocol PRN Reason: per Hypoglycemia Standing Ord. Levothyroxine Sodium (Levothyroxine Sodium 88 Mcg Tablet) 88 mcg PO DAILY@0630 [facility] Last Admin: 09/21/23 05:49 Dose: 88 mcg Lisinopril (Lisinopril 20 Mg Tablet) 20 mg PO DAILY [facility]; Protocol Last Admin: 09/21/23 09:49 Dose: 20 mg Magnesium Hydroxide (Milk Of Magnesia 30 Ml Oral.Susp) 30 ml PO DAILY PRN PRN Reason: Constipation Melatonin (Melatonin 3 Mg Tablet) 6 mg PO BEDTIME PRN PRN Reason: Insomnia Oxycodone HCl (Oxycodone Hcl Immed Release 5 Mg Tablet) 5 mg PO Q4H PRN PRN Reason: moderate pain Last Admin: 09/21/23 09:48 Dose: 5 mg Polyethylene Glycol (Polyethylene Glycol 3350 17 Gm Powd.Pack) 17 gm PO DAILY [facility] Senna (Sennosides 8.6 Mg Tablet) 17.2 mg PO DAILY PRN PRN Reason: Constipation Sodium Chloride (0.9 % Sodium Chloride Flush 3 Ml Syringe) 3 ml IVFLUSH QSHIFT [facility] Last Admin: 09/21/23 08:21 Dose: Not Given Tamsulosin HCl (Tamsulosin Hcl 0.4 Mg Capsule) 0.4 mg PO BEDTIME [facility] Home Medications ?Medication ?Instructions ?Recorded ?Confirmed ?Last Taken ?Type aspirin 81 mg tablet,delayed 81 mg PO BEDTIME 10/13/21 09/21/23 09/15/23 06:00 History release (Adult Low Dose Aspirin) atenolol 50 mg tablet 50 mg PO BEDTIME 10/13/21 09/21/23 09/14/23 History atorvastatin 20 mg tablet 20 mg PO DAILY 10/13/21 09/21/23 09/15/23 06:00 History levothyroxine 88 mcg tablet 88 mcg PO DAILY@0600 10/13/21 09/21/23 09/15/23 06:00 History omega-3 fatty acids 1,000 mg 1,000 mg PO DAILY 10/13/21 09/21/23 09/15/23 06:00 History capsule lisinopril 20 mg tablet 20 mg PO BEDTIME 03/23/22 09/21/23 09/14/23 History calcium carbonate (Oyster Shell 500 mg PO BEDTIME 08/07/22 09/21/23 09/14/23 History Calcium) docusate sodium 100 mg capsule 100 mg PO DAILY 12/21/22 09/21/23 09/15/23 06:00 History clotrimazole 1 % topical cream 1 appl topical BID PRN Rash Under 09/15/23 09/21/23 Unknown History Breast cyanocobalamin (vitamin B-12) 1,000 mcg subcut QMONTH 09/15/23 09/21/23 Unknown History 1,000 mcg/mL injection solution hydrocortisone 2.5 % topical 1 appl topical BID PRN Rash 09/15/23 09/21/23 Unknown History ointment Face/Neck polyethylene glycol 3350 17 17 g PO DAILY 09/15/23 09/21/23 09/15/23 06:00 History gram/dose oral powder sennosides 8.6 mg tablet (senna) 17.2 mg PO DAILY PRN Constipation 09/15/23 09/21/23 Unknown History Physical Exam 2 Vital Signs: Vital Signs: Last Vital Signs Temp 97.3 F 09/21/23 14:55 Pulse 87 09/21/23 14:55 Resp 16 09/21/23 14:55 BP 126/78 09/21/23 14:55 Pulse Ox 96 09/21/23 14:55 O2 Del Method Room Air 09/21/23 14:55 O2 Flow Rate 2 09/20/23 18:00 Oxygen Flow Rate 2 09/20/23 14:07 BMI result Body Mass Index 24.3 Const: General: no acute distress Nutritional Appearance: average body habitus Orientation/consciousness: patient oriented x3 Limitations: p hysical limitations (due to advanced age and recent surgery) HEENT: Head: Yes normal to inspection Ears: hearing grossly normal bilaterally Mouth: Normal oral and palatal mucosa present Eyes: Sclerae: sclerae normal Pupils: Equal, round and reactive pupils present Neck: Neck: Yes normal visual inspection Chest: Chest palpation & inspection: normal inspection of the chest Resp: Effort & Inspection: normal respiratory effort Auscultation: clear to auscultation bilaterally Cardio: Palpation: normal PMI Rate: regular rate Rhythm: regular rhythm Heart sounds: S1 normal heart sound present, S2 normal heart sound present and no murmurs GI: Palpation (GI): Soft to palpation, nontender and No hepatosplenomegaly present Auscultation: normal bowel sounds Rectal Exam - Female: deferred Skin: General skin exam: no rashes or lesions noted Neuro: General: patient oriented x3, gait normal and moves all extremities Cranial nerves: Yes Equal, round and reactive pupils present Psych: Appearance: grossly normal Mental Status: mental status grossly normal Results Labs 09/21/23 05:39 09/21/23 05:39 Labs: Short CBC 09/20/23 09/20/23 09/21/23 Range/Units 18:23 20:37 05:39 WBC 5.4 6.0 6.4 (4.8-10.8) X10*3/uL Hgb 7.5 L 8.5 L 10.4 L D (12.0-16.0) g/dl Hct 25.2 L 27.1 L 33.1 L D (37.0-47.0) % Plt Count 214 236 241 (160-400) X10*3/uL BMP 09/21/23 05:39 Sodium 139 Potassium 3.8 Chloride 106 Carbon Dioxide 24 BUN 17 H Creatinine 0.47 L Calcium 8.7 Assessment and Plan (1) Postoperative anemia: Status: Acute Plan 78 year old female with CVA, htn, hypothyroid, urinary retention, DM, chornic anemia, mild to mod Aortic regurgitation, admitted to [facility] on 09/20/23 with acute on chronic anemia Pt was hospitalized at [facility] from 09/14 to 09/19/23 after a fall complicated by left femoral neck fracture and underwent left hemiarthroplasy on 09/17/23. She was transferred to rehab on 09/19/2023 (H & H on 09/18/23 prior to discharge were 8.5 & 28.5) Pt was sent to [facility] ED for a blood transfusion on 09/20/23 after labs revealed H & H of 7.2 & 24.3 Pt was transfused 2 units of PRBC and repeat H&H was 10.4 & 33.1 on 09/21/23 Stool occult blood was positive Anemia is likely multifactorial - recent surgery, nutritional and from upper or lower GI blood loss. RECOMMENDATIONS: 1. Monitor CBC daily 2. Check iron studies and Vitamin B 12 levels - added to am labs 3. Since pt's CBC has been stable after blood transfusion, no overt bleeding and recent hip replacement surgery, recommend holding off endoscopic evaluation. Pt can FU in the GI clinic once she has recovered from her surgery and if she has persistent anemia, endoscopic evaluation will be scheduled as an outpatient Procedures Date of Service Date of Service: 09/21/23
[2023-09-21 16:30] LABS: Glucose, Whole Blood 144 mg/dL (60-115)
[2023-09-21 19:39] LABS: Glucose, Whole Blood 204 mg/dL (60-115)
[2023-09-21] MEDS: Calcium Oyster Shell Elemental 500 MG TABLET PO (21:35)
[2023-09-21] MEDS: Atorvastatin Calcium 20 MG TABLET PO (21:35)
[2023-09-21] MEDS: Tamsulosin HCL 0.4 MG CAPSULE PO (21:35)
[2023-09-21] MEDS: atenoloL 50 MG TABLET PO (21:36)
[2023-09-21] MEDS: Melatonin 3 MG TABLET 6 MG PO (21:36)
[2023-09-22] VITALS: BP 141/88; PULSE 78; RESP 16; TEMP 36.7; O2SAT 94
[2023-09-22 04:00] VITALS: RESP 16
[2023-09-22] MEDS: Levothyroxine Sodium 88 MCG TABLET PO (05:54)
[2023-09-22] MEDS: oxyCODONE HCl Immed Release 5 MG TABLET PO ×2 (05:56→10:37)
[2023-09-22 06:58] LABS: Hematocrit 32.7 % (37.0-47.0); Hemoglobin 10.3 g/dl (12.0-16.0); Iron 20 mcg/dL (30-160); Percent Iron Saturation 10 % (15-50); Total Iron Binding Capacity 204 mcg/dL (228-428); Unsaturated Iron Binding 184 ug/dL
[2023-09-22 07:15] LABS: Ferritin 138 ng/mL (10-250)
[2023-09-22 07:22] LABS: Vitamin B12 589 pg/mL (200-900)
[2023-09-22 07:32] LABS: Glucose, Whole Blood 130 mg/dL (60-115)
[2023-09-22 07:44] VITALS: BP 152/81; PULSE 77; RESP 16; TEMP 36.2; O2SAT 94
[2023-09-22] MEDS: lisinopriL 20 MG TABLET PO (09:01)
[2023-09-22] MEDS: Docusate Sodium 100 MG CAPSULE PO (09:01)
[2023-09-22] MEDS: Clopidogrel Bisulfate 75 MG TABLET PO (09:01)
[2023-09-22] MEDS: Cyanocobalamin (Vitamin B-12) 1,000 MCG TABLET 1000 MCG PO (09:01)
[2023-09-22] MEDS: Aspirin Enteric Coated 81 MG TABLET.DR PO (09:01)
[2023-09-22] MEDS: 0.9 % Sodium Chloride Flush 3 ML SYRINGE IVFLUSH (09:03)
--- NOTE | 2023-09-22 10:38 | PM.DS ---
DS: Providers Provider Date of Service: 09/22/23 Date of admission: 09/21/23 03:31 Date of discharge: 09/22/23 Primary care physician: Eb Bone MD Consults: 09/21/23 10:49 Consult to Gastroenterology Routine Consulting Provider: Suleman Dial Reason for consultation: anemia, heme + stools on DAPT Has provider been notified: No Attending physician on discharge: [facility] Discharging clinician: Agata Spencer DS: Diagnosis Discharge Diagnosis (1) Postoperative anemia: Status: Acute DS: Summary Hospital Course Hospital Course: From H&P on the day of admission 78F PMH CVA, htn, hypothyroid, urinary retention, DM, chornic anemia, mild to mod Aortic regurgitation, admitted to [facility] 09/15/23 to 09/19/23 for mechanical fall, left femoral neck fracture, underwent left hemiarthroplasy 09/17/23. perioperative period unremarkable other than urinary retention for which she was sent with underwood. patient is unsure why labs drawn, hgb found to be 7.2, sent to ED for transfusion, denies blood in stool. in ED given 2 units, hgb improved to 8.5. no gross blood in stool, occult positive, also noted to have some bleeding under her tongue acute on chronic blood loss anemia transfused 2 units in ED repeat CBC improved seen by GI, Since pt's CBC has been stable after blood transfusion, no overt bleeding and recent hip replacement surgery, recommend holding off endoscopic evaluation. Pt can FU in the GI clinic once she has recovered from her surgery and if she has persistent anemia, endoscopic evaluation will be scheduled as an outpatient. B12 589, iron studies likely chronic inflammation. outpatient follow up. Time Attestation Discharge Coordination Time (in mins): 32 Quality: Safe Use of Opioids Does Pt have an Active Cancer Diagnosis on the Problem List?: No Quality: Stroke Does the patient have a stroke diagnosis?: No Physical Exam Vital Signs: Vital Signs: Last Vital Signs Temp 97.2 F 09/22/23 07:44 Pulse 77 09/22/23 07:44 Resp 16 09/22/23 07:44 BP 152/81 H 09/22/23 07:44 Pulse Ox 94 09/22/23 07:44 O2 Del Method Room Air 09/22/23 07:44 O2 Flow Rate 2 09/20/23 18:00 Oxygen Flow Rate 2 09/20/23 14:07 BMI result Body Mass Index 24.3 Const: General: no acute distress Nutritional Appearance: average body habitus Eyes: Sclerae: sclerae normal Neck: Neck: Yes normal visual inspection Chest: Chest palpation & inspection: normal inspection of the chest Resp: Effort & Inspection: normal respiratory effort Cardio: Rate: regular rate GI: Palpation (GI): Soft to palpation and nontender Neuro: General: moves all extremities DS: Data Data Completed and Pending Completed studies during hospitalization [Text1]: Procedures Introduction of Other Thrombolytic into Peripheral Vein, Percutaneous Approach (08/07/22) Transfusion of Nonautologous Red Blood Cells into Peripheral Vein, Percutaneous Approach (08/07/22) Labs on day of discharge: Laboratory Results - last 24 hr 09/21/23 09/21/23 09/22/23 16:12 19:27 05:26 Hgb 10.3 L Hct 32.7 L POC Glucose 144 H 204 H Iron 20 L TIBC 204 L % Saturation 10 L Unsat Iron Binding 184 Ferritin 138 Vitamin B12 589 09/22/23 07:01 Hgb Hct POC Glucose 130 H Iron TIBC % Saturation Unsat Iron Binding Ferritin Vitamin B12 Discharge Plan Discharge Patient Disposition: er [facility] Discharge Diagnosis: postoperative anemia Referrals: [facility] [Other] - 1 Week Eb Bone MD [Primary Care Provider] - 1 Week Suleman Dial MD [Physician] - 2 Months Discharge Medications: Continued lisinopril 20 mg tablet 20 mg PO BEDTIME calcium carbonate [Oyster Shell Calcium] 500 mg calcium (1,250 mg) Tablet 500 mg PO BEDTIME tamsulosin 0.4 mg Capsule 0.4 mg PO DAILY Qty: 30 0RF clopidogrel [Plavix] 75 mg tablet 75 mg PO DAILY Qty: 30 0RF sennosides [senna] 8.6 mg Tablet 17.2 mg PO DAILY PRN (Reason: Constipation) cyanocobalamin (vitamin B-12) 1,000 mcg/mL Solution 1,000 mcg SUBCUT QMONTH polyethylene glycol 3350 17 gram/dose Powder 17 g PO DAILY hydrocortisone 2.5 % ointment 1 appl topical BID PRN (Reason: Rash Face/Neck) Rx Instructions: To face and neck as needed for flares clotrimazole 1 % cream 1 appl topical BID PRN (Reason: Rash Under Breast) oxycodone 5 mg Tablet 5 mg PO Q4H PRN (Reason: Pain, Moderate(Pain Scale 4-6)) Qty: 40 0RF Rx Instructions: Partial Fill upon patient request. atorvastatin 20 mg tablet 20 mg PO DAILY levothyroxine 88 mcg tablet 88 mcg PO DAILY@0600 omega-3 fatty acids 1,000 mg capsule 1,000 mg PO DAILY atenolol 50 mg tablet 50 mg PO BEDTIME aspirin [Adult Low Dose Aspirin] 81 mg tablet,delayed release (DR/EC) 81 mg PO BEDTIME docusate sodium 100 mg capsule 100 mg PO DAILY Discharge Orders: Discharge Order (Routine); Ordered 09/22/23 Ordered By: Agata Spencer Activity on Discharge: As tolerated Stand Alone Forms: Patient Portal Discharge page Print Language: Turkmen Activity Restrictions/Additional Instructions: return for worsening symptoms hemoglobin 7.2 prior to one unit of blood repeat hemoglobin tomorrow chemistry and EKG reasuring Care Plan Goals: See below see below Health Concerns: Postoperative anemia Pelvic cyst (chronic) Plan of Treatment: Recommend to repeat CBC in 1 week Pelvic cyst again noted - noted on previous imaging and previously referred to web page designer. outpatient follow up if indicated outpatient follow up with GI Assessment: See discharge summary Patient Instructions: Anemia (ED), Blood Transfusion (DC)
--- NOTE | 2023-09-22 11:09 | MHC.CM.PN ---
pt dcd today to [facility] for 1 dgter notified
[2023-09-22 11:40] LABS: Glucose, Whole Blood 122 mg/dL (60-115)
[2023-09-22 12:00] VITALS: BP 180/81; PULSE 87; RESP 18; TEMP 36.2; O2SAT 95
[2023-09-22 19:19] LABS: Haptoglobin 393 mg/dL (43-212)
== END 2023-09-22 13:30 | disposition skilled nursing facility (03) ==
LOC: HO.ED 23:07 → HO.EDOVER 09-21 03:35 → HO.S3 09-21 07:56
PROVIDERS: Emergency Medicine; Internal Medicine Gastroenterology; Admitting Provider Internal Medicine; Emergency Provider Student in an Organized Health Care Education/Training Program; PCP Family Medicine; Visit Provider Physician Assistant Medical
DX: D62 Acute posthemorrhagic anemia (principal); K92.1 Melena; I10 Essential (primary) hypertension; R33.9 Retention of urine, unspecified; E03.9 Hypothyroidism, unspecified; E11.9 Type 2 diabetes mellitus without complications; I35.1 Nonrheumatic aortic (valve) insufficiency; Z96.642 Presence of left artificial hip joint; Z86.73 Personal history of transient ischemic attack (TIA), and cerebral infarction without residual deficits; Z79.899 Other long term (current) drug therapy
CPT/HCPCS: 36415; 36430; 73701; 80048; 80076; 82272; 82607; 82728; 82947; 83010; 83540; 83615; 83735; 85014; 85018; 85025; 85027; 85045; 85384; 85610; 85730; 86850; 86880; 86900; 86901; 86923; 93005; 96361; 96374; 99221; 99285; C1758; J2270; P9016; Q9967

== ENCOUNTER → 2023-09-20 14:14 | Outpatient (BNV) | payer MEDICARE, MEDICAID, SELFPAY | PROVIDERS: Emergency Provider Student in an Organized Health Care Education/Training Program; PCP Family Medicine; Visit Provider Internal Medicine | DX: D64.9 Anemia, unspecified (principal) | CPT/HCPCS: 99223; 99239; 99499 ==

== ENCOUNTER → 2023-09-20 14:20 | Outpatient (BNV) | payer MEDICARE, MEDICAID, SELFPAY | PROVIDERS: Admitting Provider Internal Medicine; Emergency Provider Student in an Organized Health Care Education/Training Program; PCP Family Medicine; Visit Provider Internal Medicine Cardiovascular Disease | DX: R94.31 Abnormal electrocardiogram [ECG] [EKG] (principal) | CPT/HCPCS: 93010 ==

== ENCOUNTER → 2023-09-21 03:31 | Outpatient (BNV) | payer MEDICARE, MEDICAID, SELFPAY | PROVIDERS: Admitting Provider Internal Medicine; Emergency Provider Student in an Organized Health Care Education/Training Program; PCP Family Medicine; Visit Provider Internal Medicine Gastroenterology | DX: D64.9 Anemia, unspecified (principal) | CPT/HCPCS: 99222 ==

== ENCOUNTER 2023-10-03 17:12 | Outpatient (REF) | payer MEDICARE, MEDICAID, SELFPAY | END 2023-10-03 17:13 | disposition home or self-care (01) | LOC: HO.HOSX 17:12 | DX: Z13.89 Encounter for screening for other disorder (principal) ==

== ENCOUNTER 2023-10-04 12:39 | Outpatient (REF) | payer MEDICARE, MEDICAID, SELFPAY ==
--- NOTE | ~2023-10-04 | XR_ITS ---
EXAMINATION: XR HIP, LEFT CLINICAL INFORMATION: Left hip pain status post hemiarthroplasty. COMPARISON: None available. TECHNIQUE: AP view of the pelvis, AP view of the left hip, and a frog-leg lateral view of the left hip. FINDINGS: Bipolar left hip hemiarthroplasty appears appropriately positioned without surrounding fracture. Bones are osteopenic. Old healed left superior anterior pubic rami fractures. 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 Degenerative spondylosis is present in the lower lumbar spine. No acute osseous findings in the pelvis. Multiple surgical clips overlying the left lateral soft tissues. XR/XR hip LT min 2V IMPRESSION: 1. Bipolar left hip hemiarthroplasty appears appropriately positioned. No acute osseous findings. 2. Old healed left superior and anterior pubic rami fractures. Electronically signed by: Francis Ames MD 10/27/2023 10:03 PM EDT
--- NOTE | 2023-10-05 19:02 | PC.NURSE ---
Late entry for 09/18/23 7916: Pt reported severe 8/10 L hip pain, with ambulation to commode. Pt requested oxycodone for pain.
== END 2023-10-04 12:40 | disposition home or self-care (01) ==
LOC: HO.HOSX 12:39
PROVIDERS: PCP Internal Medicine
DX: M25.552 Pain in left hip (principal); S72.002D Fracture of unspecified part of neck of left femur, subsequent encounter for closed fracture with routine healing
CPT/HCPCS: 73502; 99212

== ENCOUNTER 2023-10-04 12:39 | Outpatient (AMB) | payer MEDICARE, MEDICAID, SELFPAY ==
--- NOTE | 2023-10-04 13:59 | MHC.OFFVIS ---
Intake Visit Reasons: 2 week f/u s/p left hip nica 09/17/23 with NE Intake Note: Briseida is a 78 year old female who presents today for her two week follow up S/P Left HIP Left hip hemiarthroplasty DOS: 09/17/23 w/ NE. Patient reports she is having constant pain in the left hip daily. She is says Tylenol offers no relief but the oxycodone helps. Allergies propoxyphene [From Darvon] Allergy (Mild, Verified 10/04/23 14:04) UNKNOWN alteplase Adverse Reaction (Intermediate, Verified 10/04/23 14:04) Itching metformin [Metformin] Adverse Reaction (Mild, Verified 10/04/23 14:04) DIARRHEA, RASH HPI HPI 2 week f/u s/p left hip nica 09/17/23 with NE: Details: Patient is a 78-year-old female who presents for 2 week post operative evaluation status post left hip hemiarthroplasty, DOS 09/17/2023. Today, the patient reports that she is feeling much better than she did prior to surgery, but she is still experiencing consistent pain in her left hip. She reports that this pain is tolerable and she is at rest, but that she feels limited with physical therapy due to pain. The patient reports that she has been working with PT at the rehab facility at which she is living currently, and then she feels this is going fairly well despite the discomfort during the sessions. The patient reports that she has been given Tylenol at the rehab facility, but this only gives her minimal relief. The patient states that the oxycodone helped with pain significantly, but that the rehab facility has not been giving it to her recently. Patient denies any numbness or tingling in the left lower extremity. No other acute complaints or concerns at this time. [facility] Medical History Hypertension Type 2 diabetes mellitus Anemia Thrombocytopenia Cerebrovascular accident Adnexal mass Occult GI bleeding Adult failure to thrive COVID-19 virus infection Major depressive disorder Intellectual disability Ischemic stroke Hernia Hypothyroidism Osteoporosis GERD (gastroesophageal reflux disease) High blood pressure Surgical History History of rectal surgery Social History Household Members: None Housing: House Housing Other:: hotel Do you presently have visiting nurse or other home services: Yes Alcohol intake: never Comment: COUNTS CORRECT Patient Tobacco Use Status: Former Tobacco user Tobacco use type: Cigarette e-Cigarette/Vaping Use: Former Use Second Hand Smoke Exposure: No Advance Directives Date on File: 08/07/22 service: No Current occupational status: retired and disabled Physical Exam Extrem Other: On inspection, his incision sites are well approximated with sebastián in place Dressing clean, dry, intact, removed in office today No erythema, ecchymosis noted No evidence of infection noted Patient reports mild tenderness to palpation of the lateral left hip Compartments soft, nontender Patient is on stretcher, and is able to actively lift the left leg off the stretcher at this time Patient is able to plantar flex and dorsiflex the left foot without difficulty Patient is able to flex and extend digits of the left foot without difficulty Distal sensation intact Capillary refill brisk Results Reviewed Results Reviewed: X-rays obtained in the office today and independently reviewed by me, Mahesh Lucero PA-C, demonstrate left hip status post hemiarthroplasty with all implants in place and in satisfactory clinical alignment. No acute fracture or bony abnormality noted. Assessment & Plan Assessment & Plan (1) Fracture of femoral neck, left, closed: Code(s): S72.002A - Fracture of unspecified part of neck of left femur, initial encounter for closed fracture Category: Medical Plan 1. Status post left hip hemiarthroplasty DOS 09/17/2023 [place] removed in office today Patient appears to be recovering well postoperatively Patient is educated about the typical recovery course Patient is informed that, due to being admitted to rehab facility, they are the providers who said the ordering administering pain medications, and we sent scripts for our pain medication regimen when she was discharged from hospital, and any further questions about pain medication should be directed to them. Patient is advised that she should continue to work with physical therapy in order to improve functional capacity and function of the left hip Patient is amenable to this plan Patient will follow-up in [address] Manning for 6 week postop assessment, sooner with any acute concerns Orders: Orders XR hip LT min 2V 10/04/23 M25.552 - Pain in left hip Coding Level of Care Code Global (24004) Diagnoses Fracture of femoral neck, left, closed S72.002A
== END 2023-10-04 14:30 | disposition home or self-care (01) ==
PROVIDERS: PCP Internal Medicine
DX: S72.002A Fracture of unspecified part of neck of left femur, initial encounter for closed fracture (principal)
CPT/HCPCS: 99024

== ENCOUNTER 2023-10-22 20:21 | Emergency (ER) | payer MEDICARE, MEDICAID, SELFPAY ==
--- NOTE | ~2023-10-22 | CT_ITS ---
EXAMINATION: CT ABDOMEN AND PELVIS WITHOUT CONTRAST CLINICAL INFORMATION: Abdominal pain, constipation. COMPARISON: 05/21/22, 03/23/22 TECHNIQUE: Multidetector volumetric imaging was performed from the superior aspect of the liver through the pubic symphysis. Sagittal and coronal reformatted images were obtained on the technologist's workstation. This CT examination was performed using dose optimization techniques as appropriate, variously including the following: *Automated exposure control *Adjustment of mA and/or kV according to patient size (this includes techniques or standardized protocols for targeted exams where dose is matched to indication/reason for exam; i.e. extremities or head) *Use of iterative reconstruction technique DLP: 420 mGy-cm FINDINGS: LUNG BASES: Unremarkable. ABDOMINAL AND PELVIC WALL: Status post ventral hernia repair with ventral mesh present. LIVER AND BILIARY TREE: Unremarkable. GALLBLADDER: Unremarkable. PANCREAS: Unremarkable. SPLEEN: Unremarkable. ADRENAL GLANDS: Unremarkable. KIDNEYS AND URETERS: Punctate nonobstructing right renal stone. GASTROINTESTINAL TRACT: Moderate hiatal hernia. Large volume stool is seen in the rectum distal rectal wall thickening and mild inflammatory changes which may reflect early stercoral colitis. Appendix is not visualized, however, no inflammatory changes are seen in the right lower quadrant. VASCULAR: Aortic atherosclerotic calcifications, no aneurysmal dilation. LYMPH NODES/PERITONEUM: No lymphadenopathy. FREE FLUID: None. BLADDER: Urinary bladder is decompressed around a Carver catheter. PELVIC VISCERA: Large left adnexal cystic mass with peripheral calcifications measures 7.9 x 7.8 cm, unchanged. OSSEOUS STRUCTURES: Status post left hip arthroplasty. CT/CT abdomen pelvis wo IV con IMPRESSION: * Large volume stool is seen in the rectum distal rectal wall thickening and mild inflammatory changes which may reflect early stercoral colitis. * Large left adnexal cystic mass with peripheral calcifications measures 7.9 cm, unchanged. Recommend further evaluation with MR pelvis if not yet performed. Electronically signed by: Esme Harman MD 10/22/2023 10:27 PM EDT
[2023-10-22 20:32] VITALS: BP 158/84; PULSE 71; RESP 16; TEMP 36.6; O2SAT 93
[2023-10-22 20:41] VITALS: BP 156/84; PULSE 76; O2SAT 94; BMI 21.6
[2023-10-22 20:51] LABS: Appearance Urine Clear; Color Urine Yellow; Glucose Urine UA Negative (Negative); Leukocyte Esterase Urine Large (3+) (Negative); Nitrite Urine Negative (Negative); Specific Gravity - Urine <= 1.005 (1.005-1.025); UMIC TRIGGER UACC YES; Urine Blood Small (1+) (Negative); Urine Ketones Negative (Negative); Urine Protein Negative (Neg-Trace)
[2023-10-22 21:05] LABS: Bacteria Urine None Seen (None Seen); Calcium Oxalate Crystals Urine Present; Hyaline Casts Urine 0-2 /LPF (0-2); Squamous Epithelial Cell Urine 0-2 /HPF (0-2); UACC Culture Trigger YES
--- NOTE | 2023-10-22 21:05 | ED_ITS ---
HPI - Abdominal Pain General Chief Complaint: Abdominal Pain Stated Complaint: abdominal pain, underwood in place Time Seen by Provider: 10/22/23 20:55 Source: patient and EMS Mode of arrival: EMS Limitations: no limitations History of Present Illness ED Provider: BAUTISTA HPI narrative: 78 yo female with PMH Of CVA, HTN, hypothyroidism, urinary retention with underwood in place, DM, chronic anemia, recent L fem neck fracture s/p L hemiarthroplasty on 09/16 susequent pos op anemia given 2 units PRBCs, currently on oxycodone on for pain control now here today with c/o abdominal pain and constipation for a few days. No n/v she states she hate [facility]. She notes her stool is hard when she goes. She tells me she is no longer on oxycodone. She states her vaginal area and rectal area are burning. She initially stated she had n/v but then corrected me and states that it was not recent but in the past. MD elicited complaint: abdominal pain (constipation) Pertinent past history: constipation Onset (ago): day(s) (3) Pain Consistency: intermittent Location: none Severity: mild Quality: aching Radiation: none Migration to: no migration Exacerbating factors: eating Relieving factors: nothing Context: history of similar episodes Associated symptoms: constipation Related Data Home Medications ?Medication ?Instructions ?Recorded ?Confirmed aspirin 81 mg tablet,delayed 81 mg PO BEDTIME 10/13/21 09/21/23 release (Adult Low Dose Aspirin) atenolol 50 mg tablet 50 mg PO BEDTIME 10/13/21 09/21/23 atorvastatin 20 mg tablet 20 mg PO DAILY 10/13/21 09/21/23 levothyroxine 88 mcg tablet 88 mcg PO DAILY@0600 10/13/21 09/21/23 omega-3 fatty acids 1,000 mg 1,000 mg PO DAILY 10/13/21 09/21/23 capsule lisinopril 20 mg tablet 20 mg PO BEDTIME 03/23/22 09/21/23 calcium carbonate (Oyster Shell 500 mg PO BEDTIME 08/07/22 09/21/23 Calcium) docusate sodium 100 mg capsule 100 mg PO DAILY 12/21/22 09/21/23 clotrimazole 1 % topical cream 1 appl topical BID PRN Rash Under 09/15/23 09/21/23 Breast cyanocobalamin (vitamin B-12) 1,000 mcg subcut QMONTH 09/15/23 09/21/23 1,000 mcg/mL injection solution hydrocortisone 2.5 % topical 1 appl topical BID PRN Rash 09/15/23 09/21/23 ointment Face/Neck polyethylene glycol 3350 17 17 g PO DAILY 09/15/23 09/21/23 gram/dose oral powder sennosides 8.6 mg tablet (senna) 17.2 mg PO DAILY PRN Constipation 09/15/23 09/21/23 acetaminophen 500 mg capsule 500 mg PO Q6H PRN 10/04/23 bisacodyl 10 mg rectal suppository 10 mg GA DAILY PRN 10/04/23 cholecalciferol (vitamin D3) 25 25 mcg PO DAILY 10/04/23 mcg (1,000 unit) capsule docusate sodium 100 mg capsule 100 mg PO DAILY 10/04/23 ferrous sulfate 325 mg (65 mg 325 mg PO DAILY 10/04/23 iron) tablet hydrocortisone 2.5 % topical cream 1 appl topical BID PRN 10/04/23 magnesium hydroxide 800 mg/5 mL mg PO PRN 10/04/23 oral suspension naloxone 4 mg/actuation nasal 4 mg intranasal Q3M PRN 10/04/23 spray (Narcan) omeprazole 20 mg capsule,delayed 20 mg PO DAILY 10/04/23 release polyethylene glycol 3350 17 17 g PO DAILY 10/04/23 gram/dose oral powder sodium phosphates 19 gram-7 118 ml GA DAILY PRN 10/04/23 gram/118 mL enema (Fleet Enema) Previous Rx's ?Medication ?Instructions ?Recorded clopidogrel 75 mg tablet (Plavix) 75 mg PO DAILY #30 tabs 08/09/22 tamsulosin 0.4 mg capsule 0.4 mg PO DAILY #30 caps 08/09/22 oxycodone 5 mg tablet 5 mg PO Q4H PRN Pain, 09/19/23 Moderate(Pain Scale 4-6) #40 tabs Allergies Allergy/AdvReac Type Severity Reaction Status Date / Time propoxyphene [From Darvon] Allergy Mild UNKNOWN Verified 10/22/23 20:45 alteplase AdvReac Intermediate Itching Verified 10/22/23 20:45 metformin [Metformin] AdvReac Mild DIARRHEA, Verified 10/22/23 20:45 RASH Review of Systems Review of Systems Constitutional : No Weight loss, No Fever, No Chills ENT/Mouth : No sore throat, No Rhinorrhea Eyes: No Swelling, No Redness Cardiovascular : No Chest Pain, No SOB, No edema Respiratory : No Cough, No Sputum, No Wheezing Gastrointestinal : no Nausea, no Vomiting, no Diarrhea, positive abdominal Pain, No Hematochezia, No Melena, pos constipation Genitourinary : No Dysuria, No Urinary Frequency, No Hematuria, No Urgency Musculoskeletal : No joint pain, No Myalgias, No Joint Swelling Skin : No Skin Lesions, No rash Neuro : No Weakness, No Numbness, No Dizziness, No Headache All other systems reviewed and are negative. [facility] Past Medical History Attestation statement: The following information was validated with the patient. Source: old records reviewed Medical History Post-traumatic osteoarthritis of right knee Hypertension Type 2 diabetes mellitus Anemia Thrombocytopenia Cerebrovascular accident Adnexal mass Occult GI bleeding Adult failure to thrive COVID-19 virus infection Major depressive disorder Intellectual disability Ischemic stroke Hernia Hypothyroidism Osteoporosis GERD (gastroesophageal reflux disease) High blood pressure Surgical History History of rectal surgery Social History Social History Household Members: None Housing: House Housing Other:: hotel Do you presently have visiting nurse or other home services: Yes Alcohol intake: never Comment: COUNTS CORRECT Patient Tobacco Use Status: Former Tobacco user Tobacco use type: Cigarette Smoked in Last 30 Days: No e-Cigarette/Vaping Use: Former Use Second Hand Smoke Exposure: No Advance Directives: Yes Advance Directives on File: Yes Advance Directives Date on File: 09/20/23 service: No Current occupational status: retired and disabled Physical Exam ED Vital Signs: Vital Signs - 24 hr 10/22/23 20:32 10/22/23 22:00 Temperature 97.8 F 97.9 F Pulse Rate 71 71 Respiratory Rate 16 16 Blood Pressure 158/84 H 149/76 H Pulse Oximetry 93 94 Oxygen Delivery Method Room Air Room Air BMI result Body Mass Index 21.6 Appearance: Alert. Oriented X3. No acute distress. Eyes: Pupils equal, round and reactive to light. ENT: Pharynx normal. Neck: Normal inspection. Neck supple. CVS: Normal heart rate and rhythm. Pulses normal. Respiratory: No respiratory distress. Breath sounds normal. Abdomen: Soft and nontender. : cath in place clear yellow urine draining, vaginal area slightly reddened but no prolapse noted, rectal area she has old stool in adult brief Skin: Skin warm and dry. Normal skin color. Normal skin turgor. Extremities: No lower extremity edema. No calf ttp Neuro: Oriented X 3. No motor deficit. No sensory deficit. Procedures Rectal Disimpaction Time out performed rectal disimpaction: Yes Indication: fecal impaction Procedural Sedation: No Sedation/Analgesia: none Technique: manual disimpaction with gloved finger Result: significant stool output Patient Tolerated Procedure: well and no complications Complications: none Medical Decision Making Medical Decision Making [facility] Narrative: 78 yo female with PMH Of CVA, HTN, hypothyroidism, urinary retention with underwood in place, DM, chronic anemia, recent L fem neck fracture s/p L hemiarthroplasty on 09/16 susequent pos op anemia given 2 units PRBCs, currently on oxycodone on for pain control now here today with c/o abdominal pain and constipation at this time given history will obtain labs, UA and CT scan for obstruction Differential Diagnosis Differential Diagnoses: The differential diagnosis associated with the presentation includes obstruction, constipation Admission/Observation Consideration of admission/observation: Escalation of care including admission/observation considered disimpacted labs reassuring tolerating PO stable for DC Lab Data [facility] Lab Attestation statement: I reviewed the patient's lab results. 10/22/23 21:14 10/22/23 21:14 Labs: Lab Results 10/22/23 10/22/23 Range/Units 20:40 21:14 WBC 6.7 (4.8-10.8) X10*3/uL RBC 4.84 (4.20-5.50) X10*6/uL Hgb 12.6 D (12.0-16.0) g/dl Hct 39.1 (37.0-47.0) % MCV 80.8 (80.0-98.0) fL MCH 26.0 L (27.0-33.0) pg MCHC 32.2 (31.0-35.0) g/dl RDW 22.2 H (11.0-16.0) % Plt Count 220 (160-400) X10*3/uL MPV 9.1 L (9.4-12.3) fL Immature Gran % (Auto) 0.3 (0.0-0.4) % Neut % (Auto) 72.6 (45-73) % Lymph % (Auto) 15.9 L (20-40) % George % (Auto) 7.2 (2-11) % Eos % (Auto) 3.1 (0-4) % Baso % (Auto) 0.9 (0-2) % Lymph # (Auto) 1.1 L (1.2-4.9) X10*3/uL George # (Auto) 0.5 (0.1-1.2) X10*3/uL Eos # (Auto) 0.2 (0.0-0.4) X10*3/uL Baso # (Auto) 0.1 (0.0-0.2) X10*3/uL Abs Immat Gran (auto) 0.02 (0.00-0.03) X10*3/uL Absolute Neuts (auto) 4.9 (2.0-8.3) x10*3/uL Absolute Nucleated RBC 0.000 (0.0-0.012) X10*3/uL Nucleated RBC % (auto) 0.0 (0.0-0.2) /100WBC Sodium 141 (135-145) mmol/L Potassium 3.2 L (3.3-5.1) mmol/L Chloride 105 (96-108) mmol/L Carbon Dioxide 25 (22-29) mmol/L Anion Gap 14 (12-20) BUN 5 L (9-16) mg/dL Creatinine 0.51 (0.5-1.4) mg/dL Estim Creat Clear Calc 83.7 Estimated GFR > 60 Random Glucose 111 (60-115) mg/dL Calcium 9.3 D (8.4-10.2) mg/dL Magnesium 2.0 (1.6-2.6) mg/dL Total Bilirubin 0.6 (0.0-1.0) mg/dL AST 14 (5-31) U/L ALT 6 (0-31) U/L Alkaline Phosphatase 88 (39-117) U/L Total Protein 6.1 L (6.5-8.0) g/dL Albumin 3.6 (3.5-5.0) g/dL Lipase 22 (8-78) U/L Urine Color Yellow Urine Appearance Clear Urine pH 7.0 (5.0-9.0) Ur Specific [place] <= 1.005 (1.005-1.025) Urine Protein Negative (Neg-Trace) mg/dL Urine Glucose (UA) Negative (Negative) mg/dL Urine Ketones Negative (Negative) mg/dL Urine Blood Small (1+) H (Negative) Urine Nitrite Negative (Negative) Ur Leukocyte Esterase Large (3+) H (Negative) Urine RBC 3-5 H (0-2) /HPF Urine WBC 6-10 H (0-5) /HPF Ur Squamous Epith Cells 0-2 (0-2) /HPF Calcium Oxalate Crystal Present Urine Bacteria None Seen (None Seen) Hyaline Casts 0-2 (0-2) /LPF Independent Interpretation I performed an independent interpretation of an: EKG and CT Scan (impaction) Interpretation: Rate: 71 Rhythm: NSR [place]: left Normal P waves. Normal TAYLER. RBBB ST T wave : inverted t waves V1-V4, no EDDIE qTC: 458 prior studies: no change from priors The study has been interpreted contemporaneously by me. . Radiology Impression Discussion of test interpretation with radiology: I have reviewed the radiologist's reading. Independent Historian Clinical information obtained from an independent historian. History obtained from or confirmed by: EMS External Record Review External record reviewed: Inpatient record Prescription Management I considered prescription management with: Other Medications Administered Discontinued Medications Generic Name Dose Route Start Last Admin Trade Name Freq PRN Reason Stop Dose Admin Potassium Chloride 20 meq 10/22/23 22:01 10/22/23 22:25 Potassium Chloride Packet 20 Meq Packet PO 10/22/23 22:02 20 meq ONCE ONE Administration Discharge Plan Discharge Clinical Impression: Acute hypokalemia, Fecal impaction Patient Disposition: Home, Self-Care Instructions: Hypokalemia (ED), Obstipation (ED) Additional Instructions: return for worsening pain, fevers, vomiting, severe abdominal pain, bloody stools or any other concerns significant fecal impaction on exam she should be on senna 8.6mg every night and colace 100mg twice a day if no bowel movement then add on 20gm lactulose PRN daily for bowel movement please follow up with MRI of pelvis unchanged pelvic mass but needs follow up CT/CT abdomen pelvis wo IV con IMPRESSION: * Large volume stool is seen in the rectum distal rectal wall thickening and mild inflammatory changes which may reflect early stercoral colitis. * Large left adnexal cystic mass with peripheral calcifications measures 7.9 cm, unchanged. Recommend further evaluation with MR pelvis if not yet performed Prescriptions: No Action lisinopril 20 mg tablet 20 mg PO BEDTIME calcium carbonate [Oyster Shell Calcium] 500 mg calcium (1,250 mg) Tablet 500 mg PO BEDTIME tamsulosin 0.4 mg Capsule 0.4 mg PO DAILY Qty: 30 0RF clopidogrel [Plavix] 75 mg tablet 75 mg PO DAILY Qty: 30 0RF sennosides [senna] 8.6 mg Tablet 17.2 mg PO DAILY PRN (Reason: Constipation) cyanocobalamin (vitamin B-12) 1,000 mcg/mL Solution 1,000 mcg SUBCUT QMONTH polyethylene glycol 3350 17 gram/dose Powder 17 g PO DAILY hydrocortisone 2.5 % ointment 1 appl topical BID PRN (Reason: Rash Face/Neck) Rx Instructions: To face and neck as needed for flares clotrimazole 1 % cream 1 appl topical BID PRN (Reason: Rash Under Breast) oxycodone 5 mg Tablet 5 mg PO Q4H PRN (Reason: Pain, Moderate(Pain Scale 4-6)) Qty: 40 0RF Rx Instructions: Partial Fill upon patient request. atorvastatin 20 mg tablet 20 mg PO DAILY levothyroxine 88 mcg tablet 88 mcg PO DAILY@0600 omega-3 fatty acids 1,000 mg capsule 1,000 mg PO DAILY atenolol 50 mg tablet 50 mg PO BEDTIME aspirin [Adult Low Dose Aspirin] 81 mg tablet,delayed release (DR/EC) 81 mg PO BEDTIME docusate sodium 100 mg capsule 100 mg PO DAILY acetaminophen 500 mg capsule 500 mg PO Q6H PRN bisacodyl 10 mg suppository 10 mg GA DAILY PRN cholecalciferol (vitamin D3) 25 mcg (1,000 unit) capsule 25 mcg PO DAILY docusate sodium 100 mg capsule 100 mg PO DAILY ferrous sulfate 325 mg (65 mg iron) tablet 325 mg PO DAILY Fleet Enema 19-7 gram/118 mL enema 118 ml GA DAILY PRN hydrocortisone 2.5 % cream 1 appl topical BID PRN naloxone [Narcan] 4 mg/actuation spray,non-aerosol 4 mg intranasal Q3M PRN Rx Instructions: spray 1 dose into ONE nostril; alternate nostrils w each dose until help arrives omeprazole 20 mg capsule,delayed release(DR/EC) 20 mg PO DAILY magnesium hydroxide 800 mg/5 mL suspension PO PRN polyethylene glycol 3350 17 gram/dose powder 17 g PO DAILY Print Language: South Korean
--- NOTE | 2023-10-22 21:08 | ECG_ITS ---
Test Reason : ABD PAIN Blood Pressure : / mmHG Vent. Rate : 071 BPM Atrial Rate : 071 BPM P-R Int : 190 ms QRS Dur : 122 ms QT Int : 422 ms P-R-T Axes : 016 -35 -21 degrees QTc Int : 458 ms Normal sinus rhythm Left axis deviation Right bundle branch block Abnormal ECG When compared with ECG of 20-SEP-2023 14:20, Right bundle branch block is now Present Referred By: Mamie Hwang Electronically Signed By:AIDA LAM
[2023-10-22 21:24] LABS: MANUAL DIFF FLAG NO
[2023-10-22 21:26] LABS: Basophils Absolute Auto 0.1 X10*3/uL (0.0-0.2); Basophils Percent Auto 0.9 % (0-2); Eosinophils Absolute Auto 0.2 X10*3/uL (0.0-0.4); Eosinophils Percent Auto 3.1 % (0-4); Hematocrit 39.1 % (37.0-47.0); Hemoglobin 12.6 g/dl (12.0-16.0); Imm Gran Abs Auto 0.02 X10*3/uL (0.00-0.03); Imm Gran Pct Auto 0.3 % (0.0-0.4); Lymphocytes Absolute Auto 1.1 X10*3/uL (1.2-4.9); Lymphocytes Percent Auto 15.9 % (20-40); Mean Corpuscular HGB Conc 32.2 g/dl (31.0-35.0); Mean Corpuscular Volume 80.8 fL (80.0-98.0); Mean Platelet Volume 9.1 fL (9.4-12.3); Monocytes Absolute Auto 0.5 X10*3/uL (0.1-1.2); Monocytes Percent Auto 7.2 % (2-11); Neutrophils Absolute Auto 4.9 x10*3/uL (2.0-8.3); Neutrophils Percent Auto 72.6 % (45-73); Platelet Count 220 X10*3/uL (160-400); Red Blood Count 4.84 X10*6/uL (4.20-5.50); Red Cell Distribution Width 22.2 % (11.0-16.0); White Blood Count 6.7 X10*3/uL (4.8-10.8)
--- NOTE | 2023-10-22 21:34 | MHC.EDTECH ---
pt changed and repositioned
[2023-10-22 21:38] LABS: Lipase 22 U/L (8-78)
[2023-10-22 21:58] LABS: Alanine Aminotransferase 6 U/L (0-31); Albumin Level 3.6 g/dL (3.5-5.0); Alkaline Phosphatase 88 U/L (39-117); Anion Gap 14 (12-20); Aspartate Amino Transferase 14 U/L (5-31); Bilirubin Total 0.6 mg/dL (0.0-1.0); Blood Urea Nitrogen 5 mg/dL (9-16); Calcium 9.3 mg/dL (8.4-10.2); Carbon Dioxide 25 mmol/L (22-29); Chloride 105 mmol/L (96-108); Creatinine Clr Calc Pharmacy 83.7; Estimated Glomerular Filt Rate > 60; Glucose Random 111 mg/dL (60-115); Potassium 3.2 mmol/L (3.3-5.1); Sodium 141 mmol/L (135-145); Total Protein 6.1 g/dL (6.5-8.0)
[2023-10-22 22:00] VITALS: BP 149/76; PULSE 71; RESP 16; TEMP 36.6; O2SAT 94
[2023-10-22] MEDS: Potassium Chloride Packet 20 MEQ PACKET PO (22:25)
[2023-10-22] MEDS: Lactulose 20 GM/30 ML SOLUTION 10 GM PO (22:52)
[2023-10-22] MEDS: Sodium Phosphate,Mono-Dibasic 133 ML ENEMA PR (22:53)
--- NOTE | 2023-10-22 23:31 | PC.NURSE ---
Spoke with Gina PHELPS at [facility] and gave warm handover.
[2023-10-23 00:16] VITALS: BP 149/76; PULSE 71; RESP 16; TEMP 36.6; O2SAT 94
== END 2023-10-23 00:25 | disposition home or self-care (01) ==
PROVIDERS: Physician Assistant Medical; Emergency Provider Emergency Medicine; PCP Internal Medicine
DX: E23.2 Diabetes insipidus (principal); K59.00 Constipation, unspecified; R10.2 Pelvic and perineal pain; I10 Essential (primary) hypertension; I45.10 Unspecified right bundle-branch block; R94.31 Abnormal electrocardiogram [ECG] [EKG]; Z79.899 Other long term (current) drug therapy; Z87.891 Personal history of nicotine dependence
CPT/HCPCS: 36415; 74176; 80053; 81001; 83690; 83735; 85025; 87086; 93005; 99284; 99285

== ENCOUNTER 2023-11-02 11:51 | Outpatient (REF) | payer MEDICARE, MEDICAID, SELFPAY | END 2023-11-02 11:52 | disposition home or self-care (01) | LOC: HO.HOSX 11:51 | PROVIDERS: Visit Provider Orthopaedic Surgery | DX: Z96.649 Presence of unspecified artificial hip joint (principal) | CPT/HCPCS: 99212 ==

== ENCOUNTER 2023-11-02 12:04 | Outpatient (AMB) | payer MEDICARE, MEDICAID, SELFPAY ==
--- NOTE | 2023-11-02 12:07 | MHC.OFFVIS ---
Vital Signs 11/02/23 12:09 Height 5 ft 6 in Weight 134 lb BMI 21.6 Intake Visit Reasons: PO - Left Hip Magdiel w/ NE 09/17/23 w/ XR Intake Note: Briseida is a 78 year old female who presents today for her two week follow up S/P Left HIP Left hip hemiarthroplasty DOS: 09/17/23 w/ NE. Patient reports that she is doing well and she has no concerns with the hip/ Allergies propoxyphene [From Darvon] Allergy (Mild, Verified 10/22/23 20:45) UNKNOWN alteplase Adverse Reaction (Intermediate, Verified 10/22/23 20:45) Itching metformin [Metformin] Adverse Reaction (Mild, Verified 10/22/23 20:45) DIARRHEA, RASH HPI HPI PO - Left Hip Magdiel w/ NE 09/17/23 w/ XR: Details: Briseida is a 78 year old female who presents today for her two week follow up S/P Left HIP Left hip hemiarthroplasty DOS: 09/17/23 w/ NE. Patient reports that she is doing well and she has no concerns with the hip. She is walking with a cane and states she is doing well. She is leaving rehab today [facility] Medical History Post-traumatic osteoarthritis of right knee Hypertension Type 2 diabetes mellitus Anemia Thrombocytopenia Cerebrovascular accident Adnexal mass Occult GI bleeding Adult failure to thrive COVID-19 virus infection Major depressive disorder Intellectual disability Ischemic stroke Hernia Hypothyroidism Osteoporosis GERD (gastroesophageal reflux disease) High blood pressure Surgical History History of rectal surgery Social History Household Members: None Housing: House Housing Other:: hotel Do you presently have visiting nurse or other home services: Yes Alcohol intake: never Comment: COUNTS CORRECT Patient Tobacco Use Status: Former Tobacco user Tobacco use type: Cigarette e-Cigarette/Vaping Use: Former Use Second Hand Smoke Exposure: No Advance Directives Date on File: 09/20/23 service: No Current occupational status: retired and disabled Physical Exam Vital Signs: BMI result Body Mass Index 21.6 Extrem Other: Incision clean dry and intact. Mild Trendelenburg gait but no pain with passive range of motion and no gait antalgia. Assessment & Plan Assessment & Plan (1) Status post hip hemiarthroplasty: Code(s): Z96.649 - Presence of unspecified artificial hip joint Category: Surgical Plan: Patient is doing well status post hemiarthroplasty. She is doing remarkably well in fact. I did caution her to take it easy and not overdo it. She will see me back in 6 weeks. Orders: Orders XR pelvis 1-2V Today M25.559 - Pain in unspecified hip Coding Level of Care Code Global (57553) Diagnoses Status post hip hemiarthroplasty Z96.649
[2023-11-02 12:09] VITALS: BMI 21.6
== END 2023-11-02 13:16 | disposition home or self-care (01) ==
PROVIDERS: PCP Internal Medicine; Visit Provider Orthopaedic Surgery
DX: Z96.649 Presence of unspecified artificial hip joint (principal)
CPT/HCPCS: 99024

== ENCOUNTER 2024-04-22 21:29 | Inpatient (IN) | payer MEDICARE, MEDICAID, SELFPAY ==
--- NOTE | ~2024-04-22 | CT_ITS ---
CLINICAL HISTORY: Stroke Protocol CT head without contrast Comparison: CT/SR - CT HEAD/BRAIN WO IV CON - 08/07/22 15:13 EDT Findings: No intra-axial mass, midline shift, hydrocephalus, or acute hemorrhage. Moderate atrophy-like change or white matter disease. The visualized paranasal sinuses and mastoid air cells are normal. The orbits are within normal limits. There is no acute fracture. IMPRESSION: 1. No acute intracranial findings. This document has been electronically signed by: Jeremiah Jacobs MD on 04/22/2024 22:08:52
--- NOTE | ~2024-04-22 | XR_ITS ---
EXAMINATION: XR KNEE, RIGHT CLINICAL INFORMATION: knee xray COMPARISON: 12/22/2021. TECHNIQUE: Four views of the right knee. FINDINGS: Mild osteopenia. No fracture, dislocation, or suspicious bone lesion. Normal alignment. Medial and lateral compartment mild joint space narrowing with chondrocalcinosis. Moderate arthrosis in the patellofemoral joint. No significant joint effusion. Soft tissues appear normal aside from diffuse vascular calcifications. XR/XR knee RT 2V IMPRESSION: 1. No acute findings right knee. 2. Chondrocalcinosis . Mild medial and lateral compartment arthritis, with more significant arthropathy in the patellofemoral joint. Findings suggest CPPD. 3. Mild osteopenia. Electronically signed by: Francis Briones MD 04/23/2024 11:20 AM EDT
--- NOTE | ~2024-04-22 | CT_ITS ---
CLINICAL HISTORY: Stroke Protocol CT angiography head and neck with contrast. 3D Postprocessing. Comparison: CT/SR - CT HEAD FOR STROKE - 04/22/24 21:42 EDT Findings: Aortic arch and cervical great vessels are patent with no aneurysm, dissection, hemodynamically significant stenoses, or occlusion. Markedly tortuous great vessels likely related to longstanding hypertension. Intracranial arteries are patent. No aneurysm, dissection, hemodynamically significant stenoses, or occlusion. No abnormal intracranial enhancement. The visualized thyroid gland is unremarkable. No cervical mass or fluid collection. Lung apices clear. No acute fracture. IMPRESSION: Patent head and neck CTA. Markedly tortuous great vessels, likely related to longstanding hypertension. This document has been electronically signed by: Jeremiah Jacobs MD on 04/22/2024 22:58:38
--- NOTE | ~2024-04-22 | CT_ITS ---
CLINICAL HISTORY: stroke CT chest with contrast Comparison: CR/SR - XR CHEST 1V - 09/15/23 12:30 EDT Findings: The heart size is normal. The visualized thyroid and mediastinum are unremarkable. No consolidation or effusion. Large hiatal hernia otherwise, visualized upper abdomen is unremarkable. No acute fractures. IMPRESSION: 1. Large hiatal hernia, otherwise unremarkable chest CT. This document has been electronically signed by: Jeremiah Jacobs MD on 04/22/2024 23:03:42
--- NOTE | ~2024-04-22 | MR_ITS ---
EXAMINATION: MR BRAIN WITHOUT CONTRAST CLINICAL INFORMATION: Cerebrovascular accident. COMPARISON: August 08, 2022. TECHNIQUE: MRI of the brain was obtained using routine sequences without contrast. FINDINGS: No restricted diffusion. No acute intracranial hemorrhage, mass effect, midline shift, hydrocephalus or herniation. Cribriform pattern old lacunar infarcts, basal ganglia extracapsular centrum semiovale and pemberton radiata. Distinct old lacunar infarcts in the left thalamus and right frontal pemberton radiata white matter. Bilateral multifocal patchy and confluent deep periventricular white matter hyperintense T2 FLAIR signal involving centrum semiovale and pemberton radiata. Flow-void signal within the main cerebral vessels is demonstrated hyperintense T2 FLAIR signal in the left internal jugular bulb and left transverse sinus with intermediate T1 signal. Old lacunar infarcts in the body of the corpus callosum. Sellar/suprasellar region demonstrated no gross signal abnormality. Craniocervical junction is intact. There is a periodontal C1 pannus formation. MR/MR head/brain wo con IMPRESSION: No acute stroke/nonhemorrhagic ischemia. Concerning slow flow versus thrombosis, left internal jugular bulb and left transverse sinus. Small vessel occlusive disease resulting in multifocal white matter disease and multifocal old lacunar infarcts. Electronically signed by: Keenan Valdivia MD 04/23/2024 01:31 PM EDT
--- NOTE | ~2024-04-22 | CT_ITS ---
CLINICAL HISTORY: abd pain CT abdomen and pelvis without contrast Comparison: CT/SR - CT ABDOMEN PELVIS WO IV CON - 10/22/23 21:47 EDT Findings: Gallstones and/or biliary sludge visualized dependently within the gallbladder lumen. No CT evidence for acute cholecystitis. The solid organs are within normal limits. Contrast material is present within the bilateral renal collecting systems and ureters, limiting evaluation for radiopaque urinary calculi. No hydronephrosis or hydroureter. No bowel obstruction, pneumoperitoneum, or pneumatosis. There is colonic diverticulosis. No CT evidence for acute diverticulitis. Moderate hiatal hernia present containing a portion of the stomach. Mesh material in place at the anterior abdominal wall, suggesting prior hernia repair. Moderate to severe atherosclerotic calcifications are present at the abdominal aorta. No abdominal aorta aneurysm. A left hip prosthesis is in place, producing artifact which limits evaluation of the pelvic structures. The bladder is filled with fluid and contrast. No focal bladder wall thickening appreciated 8.6 cm low-attenuation structure identified of the left hemipelvis with small peripheral calcifications, possibly consistent with a cystic adnexal structure. Normal appendix. No acute fracture visualized. There is diffuse bony demineralization. Old left ischiopubic fractures redemonstrated. IMPRESSION: 1. No acute inflammatory process identified within the abdomen or pelvis. 2. Redemonstration of an 8.6 cm low-attenuation structure of the left hemipelvis with small peripheral calcifications, possibly consistent with a cystic adnexal structure. Recommend nonemergent pelvic ultrasound examination and/or contrast-enhanced pelvis MRI for further evaluation. 3. Colonic diverticulosis. No CT evidence for acute diverticulitis. 4. Moderate hiatal hernia. No bowel obstruction. 5. Gallstones and/or biliary sludge present dependently within the gallbladder lumen. No CT evidence for acute cholecystitis. This document has been electronically signed by: Chente Trinidad MD on 04/23/2024 01:56:11
--- NOTE | 2024-04-22 21:33 | ECG_ITS ---
Test Reason : ?STROKE Blood Pressure : */* mmHG Vent. Rate : 80 BPM Atrial Rate : 80 BPM P-R Int : 170 ms QRS Dur : 116 ms QT Int : 440 ms P-R-T Axes : 25 -36 9 degrees QTcB Int : 507 ms Normal sinus rhythm Left axis deviation Incomplete right bundle branch block Minimal voltage criteria for LVH, may be normal variant ( R in aVL ) Prolonged QT Abnormal ECG When compared with ECG of 22-Oct-2023 21:06, No significant change was found Referred By: Alejandro Walker Electronically Signed By: BURT DEWITT
--- NOTE | 2024-04-22 21:36 | ED_ITS ---
HPI - Altered Mental Status General Chief Complaint: Weakness Stated Complaint: stroke alert, no iv access, altered mental Time Seen by Provider: 04/22/24 21:33 Source: EMS and old records reviewed Mode of arrival: EMS Limitations: altered mental status History of Present Illness ED Provider: DR. Walker HPI narrative: 79-year-old female past medical history CVA, hypertension, hypothyroidism, urinary retention, DM, chronic anemia, mild aortic regurgitation, intellectual ability,left hemiarthroplasty, as per EMS report patient was brought in from her house where she is apparently lives alone, last known well was unknown however at 08:45 she called her healthcare correctional manager left unclear message and abnormal speech when GHOST WRITER went to her house found her unresponsive, then patient gradually start to become coherent and response to verbal stimuli. Rest of the history was obtained from patient's contact phone numbers on the chart not able to reach out to Korey So or Marisabel Calderon, history was obtained from Katheryn Rowell who stated that the patient received a few hour of care a day but the rest of the day patient live alone mostly independently until tonight. Unknown If she is on anticoagulation medication. Patient came in with MOLST form stating that the patient is DNR/ DNI. Related Data Home Medications ?Medication ?Instructions ?Recorded ?Confirmed aspirin 81 mg tablet,delayed 81 mg PO BEDTIME 10/13/21 09/21/23 release (Adult Low Dose Aspirin) atenolol 50 mg tablet 50 mg PO BEDTIME 10/13/21 09/21/23 atorvastatin 20 mg tablet 20 mg PO DAILY 10/13/21 09/21/23 levothyroxine 88 mcg tablet 88 mcg PO DAILY@0600 10/13/21 09/21/23 omega-3 fatty acids 1,000 mg 1,000 mg PO DAILY 10/13/21 09/21/23 capsule lisinopril 20 mg tablet 20 mg PO BEDTIME 03/23/22 09/21/23 calcium carbonate (Oyster Shell 500 mg PO BEDTIME 08/07/22 09/21/23 Calcium) docusate sodium 100 mg capsule 100 mg PO DAILY 12/21/22 09/21/23 clotrimazole 1 % topical cream 1 appl topical BID PRN Rash Under 09/15/23 09/21/23 Breast cyanocobalamin (vitamin B-12) 1,000 mcg subcut QMONTH 09/15/23 09/21/23 1,000 mcg/mL injection solution hydrocortisone 2.5 % topical 1 appl topical BID PRN Rash 09/15/23 09/21/23 ointment Face/Neck polyethylene glycol 3350 17 17 g PO DAILY 09/15/23 09/21/23 gram/dose oral powder sennosides 8.6 mg tablet (senna) 17.2 mg PO DAILY PRN Constipation 09/15/23 09/21/23 acetaminophen 500 mg capsule 500 mg PO Q6H PRN 10/04/23 bisacodyl 10 mg rectal suppository 10 mg PA DAILY PRN 10/04/23 cholecalciferol (vitamin D3) 25 25 mcg PO DAILY 10/04/23 mcg (1,000 unit) capsule docusate sodium 100 mg capsule 100 mg PO DAILY 10/04/23 ferrous sulfate 325 mg (65 mg 325 mg PO DAILY 10/04/23 iron) tablet hydrocortisone 2.5 % topical cream 1 appl topical BID PRN 10/04/23 magnesium hydroxide 800 mg/5 mL mg PO PRN 10/04/23 oral suspension naloxone 4 mg/actuation nasal 4 mg intranasal Q3M PRN 10/04/23 spray (Narcan) omeprazole 20 mg capsule,delayed 20 mg PO DAILY 10/04/23 release polyethylene glycol 3350 17 17 g PO DAILY 10/04/23 gram/dose oral powder sodium phosphates 19 gram-7 118 ml PA DAILY PRN 10/04/23 gram/118 mL enema (Fleet Enema) Previous Rx's ?Medication ?Instructions ?Recorded clopidogrel 75 mg tablet (Plavix) 75 mg PO DAILY #30 tabs 08/09/22 tamsulosin 0.4 mg capsule 0.4 mg PO DAILY #30 caps 08/09/22 oxycodone 5 mg tablet 5 mg PO Q4H PRN Pain, 09/19/23 Moderate(Pain Scale 4-6) #40 tabs Allergies Allergy/AdvReac Type Severity Reaction Status Date / Time propoxyphene [From Darvon] Allergy Mild UNKNOWN Verified 04/22/24 22:02 alteplase AdvReac Intermediate Itching Verified 04/22/24 22:02 metformin [Metformin] AdvReac Mild DIARRHEA, Verified 04/22/24 22:02 RASH Review of Systems 2 Review of Systems: Yes Unobtainable due to mental status [facility] Past Medical History Medical History Post-traumatic osteoarthritis of right knee Hypertension Type 2 diabetes mellitus Anemia Thrombocytopenia Cerebrovascular accident Adnexal mass Occult GI bleeding Adult failure to thrive COVID-19 virus infection Major depressive disorder Intellectual disability Ischemic stroke Hernia Hypothyroidism Osteoporosis GERD (gastroesophageal reflux disease) High blood pressure Surgical History History of rectal surgery Social History Social History Household Members: None Housing: House Housing Other:: hotel Do you presently have visiting nurse or other home services: Yes Alcohol intake: never Comment: COUNTS CORRECT Patient Tobacco Use Status: Former Tobacco user Tobacco use type: Cigarette Smoked in Last 30 Days: No e-Cigarette/Vaping Use: Former Use Second Hand Smoke Exposure: No Use of substances other than those prescribed or required for medical reasons: No Advance Directives: Yes Advance Directives on File: Yes Advance Directives Date on File: 09/20/23 service: No Current occupational status: retired and disabled Physical Exam ED Vital Signs: Vital Signs - 24 hr 04/22/24 21:53 04/22/24 22:03 Temperature 97.4 F 97.5 F Pulse Rate 80 79 Respiratory Rate 16 16 Blood Pressure 181/83 H 181/83 H Pulse Oximetry 95 94 Oxygen Delivery Method Room Air Room Air BMI result Body Mass Index 25.2 Vital signs have been reviewed and appear to be correct. Blood pressure elevated. Heart rate normal. Respiratory rate normal. Temperature normal. Oxygen saturation normal. Appearance: Alert. Oriented X3. No acute distress. Head: Normal external exam. Normocephalic. Atraumatic. No Mercado signs noted. No raccoon eyes noted Eyes: PERRLA. EOMI. Conjunctiva and sclera normal. Eyelids normal. ENT: TM's Normal. Pharynx normal. Uvula midline. Moist mucous membranes. No trismus noted. No drooling noted. No muffled voice noted. Neck: Normal inspection. Neck supple. FROM. No adenopathy. Thyroid Normal. No meningeal signs. No neck mass noted. CVS: Normal heart rate and rhythm. Heart sound normal. No murmurs noted. Pulses normal throughout. Respiratory: No respiratory distress. Painless inspiration. Breath sounds normal. No wheezes/rales/rhonchi noted. Chest nontender. No accessory muscle usage noted or decreased air movement noted. Abdomen: Soft and nontender. Bowel sounds normal in all 4 quadrants. No distention noted. No organomegaly noted. No visible injury noted. Back: No CVA tenderness. Full range of motion noted. Skin: Skin warm and dry. Normal skin color. Normal skin turgor. No rashes/lesions/lacerations noted. Extremities: No lower extremity edema. Extremities exhibit normal range of motion. Extremities nontender. Neuro: Disoriented, incoherent. Right facial droop. disregard examiner with aphasia. NIH Stroke Scale Internal: Initial- Upon Arrival Level of Consciousness: Alert Level of Consciousness Questions: Answers neither question correctly Level of Consciousness Commands: Performs neither task correctly Best Gaze: Normal Visual: No visual loss Facial Palsy: Partial paralysis Motor Arm (Right): No drift Motor Arm (Left): No drift Motor Leg (Right): No drift Motor Leg (Left): No drift Limb Ataxia: Absent Sensory: Normal Best Language: Severe aphasia Dysarthia: Normal Extinction and Inattention: No abnormality Score: 8 Course Reevaluation(s) Reevaluation #1: 79-year-old female came in with stroke . Not a TNK candidate unknown onset of symptoms. Case discussed with Dr. Arce. Time: 22:45 Reevaluation #2: CTA of the head and neck show unremarkable great vessel with no evidence of Large vessel occlusion. Time: 23:43 Reevaluation #3: Patient now is more awake, patient still mute but able to communicate by hand writing, patient stated that she has been having an abdominal pain with diarrhea all day today, no nausea, no vomiting, patient is more historian now, with improvement of NIH score. CT of the abdomen pelvis Reveals no acute intra-abdominal pathology. Time: 02:34 Medications Administered Discontinued Medications Generic Name Dose Route Start Last Admin Trade Name Freq PRN Reason Stop Dose Admin Aspirin 300 mg 04/22/24 23:41 04/22/24 23:52 Aspirin 300 Mg Supp.Rect PA 04/22/24 23:42 300 mg ONCE ONE Administration Iohexol 75 ml 04/22/24 22:03 04/22/24 22:03 Iohexol 350 Mg/Ml 100 Ml Infus..Btl IV 04/22/24 22:04 75 ml ONCE ONE Administration Medical Decision Making Differential Diagnosis Differential Diagnoses: The differential diagnosis associated with the presentation includes ( ischemic CVA, hemorrhagic CVA, electrolyte derangement, severe anemia, ACS, dysrhythmia.) Admission/Observation Consideration of admission/observation: Escalation of care including admission/observation considered Consult Healthcare Provider Management of the patient was discussed with: Hospitalist ( Dr. Avendaño) and [facility] [employer] ( Dr. Arce) Lab Data MDM Lab Attestation statement: I reviewed the patient's lab results. 04/22/24 22:10 04/22/24 22:10 Labs: Lab Results 04/22/24 04/22/24 04/22/24 Range/Units 21:33 21:34 22:10 WBC 5.1 (4.8-10.8) X10*3/uL RBC 4.69 (4.20-5.50) X10*6/uL Hgb 13.2 (12.0-16.0) g/dl Hct 39.7 (37.0-47.0) % MCV 84.6 (80.0-98.0) fL MCH 28.1 (27.0-33.0) pg MCHC 33.2 (31.0-35.0) g/dl RDW 14.9 (11.0-16.0) % Plt Count 223 (160-400) X10*3/uL MPV 9.4 (9.4-12.3) fL Immature Gran % (Auto) 0.2 (0.0-0.4) % Neut % (Auto) 65.9 (45-73) % Lymph % (Auto) 22.0 (20-40) % Graham % (Auto) 6.8 (2-11) % Eos % (Auto) 4.5 H (0-4) % Baso % (Auto) 0.6 (0-2) % Lymph # (Auto) 1.1 L (1.2-4.9) X10*3/uL Graham # (Auto) 0.4 (0.1-1.2) X10*3/uL Eos # (Auto) 0.2 (0.0-0.4) X10*3/uL Baso # (Auto) 0.0 (0.0-0.2) X10*3/uL Abs Immat Gran (auto) 0.01 (0.00-0.03) X10*3/uL Absolute Neuts (auto) 3.4 (2.0-8.3) x10*3/uL Absolute Nucleated RBC 0.000 (0.0-0.012) X10*3/uL Nucleated RBC % (auto) 0.0 (0.0-0.2) /100WBC PT 11.4 (10.9-12.4) SEC Whole Blood PT 11.8 (11.1-13.5) sec INR 1.0 (0.9-1.1) Whole Blood INR 1.0 (0.9-1.1) APTT 30.5 D (26.0-36.8) SEC Sodium 141 (135-145) mmol/L Potassium 3.5 (3.3-5.1) mmol/L Chloride 109 H (96-108) mmol/L Carbon Dioxide 24 (22-29) mmol/L Anion Gap 12 (12-20) BUN 12 (9-16) mg/dL Creatinine 0.49 L (0.5-1.4) mg/dL Estim Creat Clear Calc 67.1 Estimated GFR > 60 POC Glucose 115 (60-115) mg/dL Random Glucose 117 H (60-115) mg/dL Calcium 8.6 D (8.4-10.2) mg/dL Troponin I High Sens < 2.7 D (<3.5-17.0) ng/L Triglycerides 129 (<150) mg/dL Cholesterol 117 (<200) mg/dL LDL Cholesterol, Calc 55 (<100) mg/dL HDL Cholesterol 37 L (>40) mg/dL Independent Interpretation I performed an independent interpretation of an: CT Scan ( head CT/ head and neck CTA:Patent head and neck CTA. Markedly tortuous great vessels, likely related to longstanding hypertension.) Radiology Impression Discussion of test interpretation with radiology: I have reviewed the radiologist's reading. Critical Care Time Critical Care Time Critical Care Time: Yes Total Critical Care Time: 60 Attestation: The patient was critically ill with a high probability of imminent or life- threatening deterioration. I spent greater than 30 minutes of discontinuous time evaluating the patient, delivering critical care at the bedside, discussing evaluating data with consultants. Critical care time does not include time spent performing separately billable procedures or teaching. Time spent performing critical care was 60 minutes. Discharge Plan Discharge Clinical Impression: Stroke Patient Disposition: Admitted As Inpatient
[2024-04-22 21:42] LABS: Glucose, Whole Blood 115 mg/dL (60-115)
[2024-04-22 21:53] VITALS: BP 181/83; BP 83/58; PULSE 80; PULSE 88; RESP 16; TEMP 36.3; O2SAT 95; O2SAT 98; BMI 25.2
[2024-04-22 22:03] VITALS: BP 181/83; PULSE 79; RESP 16; TEMP 36.4; O2SAT 94
[2024-04-22] MEDS: iohexoL 350 MG/ML 100 ML INFUS..BTL 75 ML IV (22:03)
[2024-04-22 22:11] LABS: Prothrombin Time Whole Bld POC 11.8 sec (11.1-13.5)
[2024-04-22 22:14] LABS: MANUAL DIFF FLAG NO
[2024-04-22 22:16] LABS: Basophils Percent Auto 0.6 % (0-2); Eosinophils Absolute Auto 0.2 X10*3/uL (0.0-0.4); Eosinophils Percent Auto 4.5 % (0-4); Hematocrit 39.7 % (37.0-47.0); Hemoglobin 13.2 g/dl (12.0-16.0); Imm Gran Abs Auto 0.01 X10*3/uL (0.00-0.03); Imm Gran Pct Auto 0.2 % (0.0-0.4); Lymphocytes Absolute Auto 1.1 X10*3/uL (1.2-4.9); Mean Corpuscular HGB Conc 33.2 g/dl (31.0-35.0); Mean Corpuscular Hemoglobin 28.1 pg (27.0-33.0); Mean Corpuscular Volume 84.6 fL (80.0-98.0); Mean Platelet Volume 9.4 fL (9.4-12.3); Monocytes Absolute Auto 0.4 X10*3/uL (0.1-1.2); Monocytes Percent Auto 6.8 % (2-11); Neutrophils Absolute Auto 3.4 x10*3/uL (2.0-8.3); Neutrophils Percent Auto 65.9 % (45-73); Platelet Count 223 X10*3/uL (160-400); Red Blood Count 4.69 X10*6/uL (4.20-5.50); Red Cell Distribution Width 14.9 % (11.0-16.0); White Blood Count 5.1 X10*3/uL (4.8-10.8)
[2024-04-22 22:23] LABS: Prothrombin Time 11.4 SEC (10.9-12.4)
[2024-04-22 22:25] LABS: Partial Thromboplastin Time 30.5 SEC (26.0-36.8)
[2024-04-22 22:26] LABS: Stroke Lab Use COMPLETE
[2024-04-22 22:29] LABS: Anion Gap 12 (12-20); Blood Urea Nitrogen 12 mg/dL (9-16); Calcium 8.6 mg/dL (8.4-10.2); Carbon Dioxide 24 mmol/L (22-29); Chloride 109 mmol/L (96-108); Cholesterol 117 mg/dL (<200); Creatinine Clr Calc Pharmacy 67.1; Estimated Glomerular Filt Rate > 60; Glucose Random 117 mg/dL (60-115); HDL Cholesterol 37 mg/dL (>40); LDL Cholesterol Calculated 55 mg/dL (<100); Potassium 3.5 mmol/L (3.3-5.1); Sodium 141 mmol/L (135-145); Triglycerides 129 mg/dL (<150)
[2024-04-22 22:37] LABS: Troponin-I High Sensitivity < 2.7 ng/L (<3.5-17.0)
[2024-04-22] MEDS: Aspirin 300 MG SUPP.RECT PR (23:52)
[2024-04-23] VITALS (10 sets, daily range): BP systolic 91–163; BP diastolic 50–76; PULSE 73–92; RESP 16–22; TEMP 36.1–36.8; O2SAT 95–97; BMI 24.4
--- NOTE | 2024-04-23 | ECG_ITS ---
Test Reason : CHEST PAIN Blood Pressure : */* mmHG Vent. Rate : 71 BPM Atrial Rate : 71 BPM P-R Int : 168 ms QRS Dur : 128 ms QT Int : 462 ms P-R-T Axes : -1 -25 -21 degrees QTcB Int : 502 ms Normal sinus rhythm Right bundle branch block Abnormal ECG When compared with ECG of 22-Apr-2024 21:56, No significant change was found Referred By: Aura Iglesias Electronically Signed By: BURT DEWITT
--- NOTE | 2024-04-23 | EEG_ITS ---
This is a 16-channel EEG with an EKG lead. The patient is reported awake and restless during the tracing. Background EEG rhythm is about 10 hertz 5 to 50 microvolt posteriorly, lower amplitude fast anteriorly. Some muscle and lead artifacts are noted. No definite sharp wave spikes or paroxysmal tendency or asymmetry noted. Photic stimulation does not produce any significant driving. Hyperventilation is not performed. Cardiac lead does not reveal any significant abnormality. IMPRESSION: No significant abnormality noted on EEG. MD LESLIE Corley/MELISSA / [id number]
--- NOTE | 2024-04-23 00:03 | PC.NURSE ---
Patient by writing was able to express diarrhea all day long, and lots of belly pain. made aware. KRISTEL also made aware and is currently at bedside.
--- NOTE | 2024-04-23 00:32 | P.HPHOSP_ITS ---
History of Present Illness Date of Service: 04/23/24 Attending physician on admission: Michael Avendaño Chief Complaint: found unresponsive Pt is an 79 yo female with a pmhx significant for hx CVA, HTN, CAD, hypothyroid, GERD, chronic constipation, DM, chronic anemia, mild aortic regurg, and intellectual disability, who presented to the ED by EMS after being found unresponsive on her couch, by her EATING DISORDER SPECIALIST, downtime unknown. She reportedly left a voice mail that was very unclear for her EATING DISORDER SPECIALIST, likely some dysarthria. the patient was responsive by verbal stimuli when EMS arrived. The patient's speech has been coming back slightly while in the ED, she is able to communicate by writing and she can articulate some words quietly. She expressed that she had diarrhea all day and is having some abdominal discomfort mostly in the lower abdomen. She also shows a fungal rash under bilateral breasts, appears she is being treated with clotrimazole cream for this. She also reports upper sternal chest pain, reproducible with palpation, reports it radiates to the right shoulder but also states that this shoulder pain is chronic. CTA head and neck as well as head CT negative. Chest CT with large hiatal hernia. Labs unremarkable. EKG with right bundle-branch block, troponins negative. Neurology was consulted and reviewed CTs and recommended admission and MRI. Patient was given aspirin and already takes Plavix and a statin. Review of Systems 2 Review of Systems: Yes Unobtainable due to mental condition [facility] Medical History Post-traumatic osteoarthritis of right knee Hypertension Type 2 diabetes mellitus Anemia Thrombocytopenia Cerebrovascular accident Adnexal mass Occult GI bleeding Adult failure to thrive COVID-19 virus infection Major depressive disorder Intellectual disability Ischemic stroke Hernia Hypothyroidism Osteoporosis GERD (gastroesophageal reflux disease) High blood pressure Surgical History History of rectal surgery Social History Household Members: None Housing: House Housing Other:: hotel Do you presently have visiting nurse or other home services: Yes Alcohol intake: never Comment: COUNTS CORRECT Patient Tobacco Use Status: Former Tobacco user Tobacco use type: Cigarette Smoked in Last 30 Days: No e-Cigarette/Vaping Use: Former Use Second Hand Smoke Exposure: No Use of substances other than those prescribed or required for medical reasons: No Advance Directives: Yes Advance Directives on File: Yes Advance Directives Date on File: 09/20/23 service: No Current occupational status: retired and disabled Meds Allergies Allergy/AdvReac Type Severity Reaction Status Date / Time propoxyphene [From Darvon] Allergy Mild UNKNOWN Verified 04/22/24 22:02 alteplase AdvReac Intermediate Itching Verified 04/22/24 22:02 metformin [Metformin] AdvReac Mild DIARRHEA, Verified 04/22/24 22:02 RASH Active Medications: Current Medications Acetaminophen (Acetaminophen 325 Mg Tablet) 975 mg PO Q6H PRN PRN Reason: Pain, Mild 1-3,fever,headache Calcium Carbonate (Calcium Carbonate 750 Mg Tab.Chew) 750 mg PO Q4H PRN PRN Reason: Heartburn Enoxaparin Sodium (Enoxaparin Sodium 40 Mg/0.4 Ml Syringe) 40 mg SUBCUT Q24H [facility] Magnesium Hydroxide (Milk Of Magnesia 30 Ml Oral.Susp) 30 ml PO DAILY PRN PRN Reason: Constipation Melatonin (Melatonin 3 Mg Tablet) 6 mg PO BEDTIME PRN PRN Reason: Insomnia Sodium Chloride (0.9 % Sodium Chloride Flush 3 Ml Syringe) 3 ml IVFLUSH QSHIFT [facility] Home Medications ?Medication ?Instructions ?Recorded ?Confirmed ?Last Taken ?Type aspirin 81 mg tablet,delayed 81 mg PO BEDTIME 10/13/21 09/21/23 09/15/23 06:00 History release (Adult Low Dose Aspirin) atenolol 50 mg tablet 50 mg PO BEDTIME 10/13/21 09/21/23 09/14/23 History atorvastatin 20 mg tablet 20 mg PO DAILY 10/13/21 09/21/23 09/15/23 06:00 History levothyroxine 88 mcg tablet 88 mcg PO DAILY@0600 10/13/21 09/21/23 09/15/23 06:00 History omega-3 fatty acids 1,000 mg 1,000 mg PO DAILY 10/13/21 09/21/23 09/15/23 06:00 History capsule lisinopril 20 mg tablet 20 mg PO BEDTIME 03/23/22 09/21/23 09/14/23 History calcium carbonate (Oyster Shell 500 mg PO BEDTIME 08/07/22 09/21/23 09/14/23 History Calcium) docusate sodium 100 mg capsule 100 mg PO DAILY 12/21/22 09/21/23 09/15/23 06:00 History clotrimazole 1 % topical cream 1 appl topical BID PRN Rash Under 09/15/23 09/21/23 Unknown History Breast cyanocobalamin (vitamin B-12) 1,000 mcg subcut QMONTH 09/15/23 09/21/23 Unknown History 1,000 mcg/mL injection solution hydrocortisone 2.5 % topical 1 appl topical BID PRN Rash 09/15/23 09/21/23 Unknown History ointment Face/Neck polyethylene glycol 3350 17 17 g PO DAILY 09/15/23 09/21/23 09/15/23 06:00 History gram/dose oral powder sennosides 8.6 mg tablet (senna) 17.2 mg PO DAILY PRN Constipation 09/15/23 09/21/23 Unknown History acetaminophen 500 mg capsule 500 mg PO Q6H PRN 10/04/23 Unknown History bisacodyl 10 mg rectal suppository 10 mg SC DAILY PRN 10/04/23 Unknown History cholecalciferol (vitamin D3) 25 25 mcg PO DAILY 10/04/23 Unknown History mcg (1,000 unit) capsule docusate sodium 100 mg capsule 100 mg PO DAILY 10/04/23 Unknown History ferrous sulfate 325 mg (65 mg 325 mg PO DAILY 10/04/23 Unknown History iron) tablet hydrocortisone 2.5 % topical cream 1 appl topical BID PRN 10/04/23 Unknown History magnesium hydroxide 800 mg/5 mL mg PO PRN 10/04/23 Unknown History oral suspension naloxone 4 mg/actuation nasal 4 mg intranasal Q3M PRN 10/04/23 Unknown History spray (Narcan) omeprazole 20 mg capsule,delayed 20 mg PO DAILY 10/04/23 Unknown History release polyethylene glycol 3350 17 17 g PO DAILY 10/04/23 Unknown History gram/dose oral powder sodium phosphates 19 gram-7 118 ml SC DAILY PRN 10/04/23 Unknown History gram/118 mL enema (Fleet Enema) Physical Exam 2 Vital Signs and Narrative: Vital Signs: Last Vital Signs Temp 97.5 F 04/22/24 22:03 Pulse 79 04/22/24 22:03 Resp 16 04/22/24 22:03 BP 181/83 H 04/22/24 22:03 Pulse Ox 94 04/22/24 22:03 O2 Del Method Room Air 04/22/24 22:03 BMI result Body Mass Index 25.2 General: Alert, oriented to person, place and time by writing, no acute distress Resp: CTA bilaterally CVS: RRR, +murmur. reproducible chest pain with palpation upper sternum. GI: +BS, tender suprapubic region, no distention Skin: Warm, dry Neuro: Cranial nerves II-XII grossly intact bilaterally. Motor grossly intact bilaterally. RUE weakness, 2/5 compared to LUE 4+/5. no RLE weakness. Extremities: No LE edema Results Labs 04/22/24 22:10 04/22/24 22:10 Labs: Laboratory Results - last 24 hr 04/22/24 04/22/24 04/22/24 21:33 21:34 22:10 MCV 84.6 MCH 28.1 MCHC 33.2 RDW 14.9 Plt Count 223 MPV 9.4 Immature Gran % (Auto) 0.2 Neut % (Auto) 65.9 Lymph % (Auto) 22.0 Dade % (Auto) 6.8 Eos % (Auto) 4.5 H Baso % (Auto) 0.6 Lymph # (Auto) 1.1 L [place]ade # (Auto) 0.4 Eos # (Auto) 0.2 Baso # (Auto) 0.0 Abs Immat Gran (auto) 0.01 Absolute Neuts (auto) 3.4 Absolute Nucleated RBC 0.000 Nucleated RBC % (auto) 0.0 PT 11.4 Whole Blood PT 11.8 INR 1.0 Whole Blood INR 1.0 APTT 30.5 D Anion Gap 12 Estim Creat Clear Calc 67.1 Estimated GFR > 60 POC Glucose 115 Random Glucose 117 H Calcium 8.6 D Triglycerides 129 Cholesterol 117 LDL Cholesterol, Calc 55 HDL Cholesterol 37 L Assessment and Plan (1) Stroke: Status: Acute (2) Chest pain: Status: Acute (3) Diarrhea: Status: Acute Plan Pt is an 79 yo female with a pmhx significant for hx CVA, HTN, CAD, hypothyroid, GERD, chronic constipation, DM, chronic anemia, mild aortic regurg, and intellectual disability, who presented to the ED by EMS after being found unresponsive on her couch, by her EATING DISORDER SPECIALIST, downtime unknown. CVA, dysarthria and right upper extremity weakness - head CT negative - CTA head and neck negative - H&H stable - ED provider discussed case with neurologist who reviewed CT imaging, suggested admission, not a candidate for TNK - neuro checks q.2h - MRI without contrast in a.m. - UA ordered - neurology consult - patient given 300 mg aspirin SC - continue statin, Plavix and aspirin - blood pressure slightly elevated, allow for now and restart blood pressure medications tomorrow - PT/ OT eval - bedside swallow eval - lipids with low HDL otherwise normal - admit to telemetry Chest pain - EKG x2 negative, right bundle branch block, no ischemic changes - troponin x2 negative - pain reproducible with palpation, likely costochondritis - monitor with telemetry Diarrhea - abdominopelvic CT pending - GI panel and C diff ordered - no BM here yet Fungal rash under breasts - continue clotrimazole cream BID HTN - resume home meds tomorrow Hypothyroid - continue home meds Chronic constipation - continue home meds Diabetes - sliding scale insulin - diabetic diet - check A1c Chronic anemia - H&H normal and stable - monitor CBC DNR/DNI VTE prophylaxis: Lovenox Patient with CVA with dysarthria and right upper extremity weakness, timing unknown therefore not a candidate for TNK, requiring admission for at least 2 midnights stay for monitoring and Neurology consultation. Quality Stroke Does the patient have a stroke diagnosis?: Yes Reason for No Anti-thrombotic by Day Two: Contraindicated VTE Prior VTE?: No VTE Risk Level:: Medical - moderate - high VTE Device Contraindication: Treatment Not Indicated VTE Drug Contraindication: N/A - Med Ordered
[2024-04-23 01:11] LABS: Troponin-I High Sensitivity 4.3 ng/L (<3.5-17.0)
[2024-04-23 05:14] LABS: Hematocrit 39.1 % (37.0-47.0); Hemoglobin 13.1 g/dl (12.0-16.0); Mean Corpuscular HGB Conc 33.5 g/dl (31.0-35.0); Mean Corpuscular Hemoglobin 28.1 pg (27.0-33.0); Mean Corpuscular Volume 83.9 fL (80.0-98.0); Mean Platelet Volume 9.4 fL (9.4-12.3); Platelet Count 219 X10*3/uL (160-400); Red Blood Count 4.66 X10*6/uL (4.20-5.50); White Blood Count 6.2 X10*3/uL (4.8-10.8)
[2024-04-23 05:33] LABS: Anion Gap 12 (12-20); Blood Urea Nitrogen 11 mg/dL (9-16); Calcium 8.7 mg/dL (8.4-10.2); Carbon Dioxide 22 mmol/L (22-29); Chloride 111 mmol/L (96-108); Creatinine Clr Calc Pharmacy 63.2; Estimated Glomerular Filt Rate > 60; Glucose Random 100 mg/dL (60-115); Potassium 3.5 mmol/L (3.3-5.1); Sodium 141 mmol/L (135-145)
[2024-04-23 06:26] LABS: Estimated Average Glucose 117 mg/dL; Hemoglobin A1C 135.3067 umol/L; Hemoglobin A1c % 5.7 % (<6.0)
[2024-04-23 07:07] LABS: Glucose, Whole Blood 93 mg/dL (60-115)
--- NOTE | 2024-04-23 08:05 | PC.NURSE ---
MRI screening form complete.
[2024-04-23] MEDS: Acetaminophen 325 MG TABLET 975 MG PO (08:14)
[2024-04-23] MEDS: Enoxaparin Sodium 40 MG/0.4 ML SYRINGE SUBCUT (08:14)
--- NOTE | 2024-04-23 09:23 | PHA.MEDREC ---
Addendum entered by Shekhar Bowers 04/23/24 09:40: reviewed Original Note: Pharmacy Consult ? Medication Reconciliation Pharmacy has completed the medication reconciliation. Spoke to patient and son at bedside to confirm med list. Son had a list of patients medication on his phone. Son states patient no longer takes Acetaminphine 500 mg, Bisacodyl 10 mg sup. Vitamin B-12 1,000 mg, Omeprazole 20 mg, Miralax powder, and Senna 17.2 mg. Patient confirmed Alendronate 70 mg every Monday.
--- NOTE | 2024-04-23 10:02 | PM.NEUROCN ---
History of Present Illness Data of Consult Service Date: 04/23/24 Primary Care Provider: Eb Bone MD HPI Reason for consult: Dysarthria and change in mental status 79 yo female with a pmhx significant for hx CVA, HTN, CAD, hypothyroid, GERD, chronic constipation, DM, chronic anemia, mild aortic regurg, and intellectual disability, who presented to the ED by EMS after being found unresponsive on her couch, by her PORTABLE PINCH RIVETER, downtime unknown. She reportedly left a voice mail that was very unclear for her PORTABLE PINCH RIVETER, likely some dysarthria. When I talked to her in emergency room initially she was talking with reasonably full voice. When I asked her if there was any problem with speaking, her speech became very soft. Her case was discussed with ER physician last night and it was decided that because of lack of clarity of onset of symptoms and overall pathology, TNK would not be advised choice. Her CTA did not reveal any lesion amenable to intra-arterial treatment and she was admitted for further evaluation. Review of Systems Review of Systems: Underlying dementia PMFSH Past Medical History Medical History Post-traumatic osteoarthritis of right knee Hypertension Type 2 diabetes mellitus Anemia Thrombocytopenia Cerebrovascular accident Adnexal mass Occult GI bleeding Adult failure to thrive COVID-19 virus infection Major depressive disorder Intellectual disability Ischemic stroke Hernia Hypothyroidism Osteoporosis GERD (gastroesophageal reflux disease) High blood pressure Surgical History Surgical History History of rectal surgery Social History Social History Household Members: None Housing: House Housing Other:: hotel Do you presently have visiting nurse or other home services: Yes Alcohol intake: never Comment: COUNTS CORRECT Patient Tobacco Use Status: Former Tobacco user Tobacco use type: Cigarette Smoked in Last 30 Days: No e-Cigarette/Vaping Use: Former Use Second Hand Smoke Exposure: No Use of substances other than those prescribed or required for medical reasons: No Advance Directives: Yes Advance Directives on File: Yes Advance Directives Date on File: 09/20/23 service: No Current occupational status: retired and disabled Meds Allergies Allergy/AdvReac Type Severity Reaction Status Date / Time propoxyphene [From Darvon] Allergy Mild UNKNOWN Verified 04/22/24 22:02 alteplase AdvReac Intermediate Itching Verified 04/22/24 22:02 metformin [Metformin] AdvReac Mild DIARRHEA, Verified 04/22/24 22:02 RASH Active Medications: Current Medications Acetaminophen (Acetaminophen 325 Mg Tablet) 975 mg PO Q6H PRN PRN Reason: Pain, Mild 1-3,fever,headache Last Admin: 04/23/24 08:14 Dose: 975 mg Calcium Carbonate (Calcium Carbonate 750 Mg Tab.Chew) 750 mg PO Q4H PRN PRN Reason: Heartburn Dextrose (Dextrose 50 % 25 Gm/50 Ml Syringe) 25 gm IVPUSH Q15M PRN; Protocol PRN Reason: per Hypoglycemia Standing Ord. Enoxaparin Sodium (Enoxaparin Sodium 40 Mg/0.4 Ml Syringe) 40 mg SUBCUT Q24H [facility] Last Admin: 04/23/24 08:14 Dose: 40 mg Glucose (Glucose Gel 15 Gm Gel..Gram.) 15 gm PO Q15M PRN; Protocol PRN Reason: per Hypoglycemia Standing Ord. Insulin Human Lispro (Insulin Lispro 100 Unit/Ml 3 Ml Vial) 0 unit SUBCUT QIDACHS [facility]; Protocol Last Admin: 04/23/24 08:03 Dose: Not Given Magnesium Hydroxide (Milk Of Magnesia 30 Ml Oral.Susp) 30 ml PO DAILY PRN PRN Reason: Constipation Melatonin (Melatonin 3 Mg Tablet) 6 mg PO BEDTIME PRN PRN Reason: Insomnia Sodium Chloride (0.9 % Sodium Chloride Flush 3 Ml Syringe) 3 ml IVFLUSH QSHIFT [facility] Last Admin: 04/23/24 08:03 Dose: Not Given Home Medications ?Medication ?Instructions ?Recorded ?Confirmed ?Last Taken ?Type aspirin 81 mg tablet,delayed 81 mg PO BEDTIME 10/13/21 04/23/24 04/21/24 History release (Adult Low Dose Aspirin) atenolol 50 mg tablet 50 mg PO BEDTIME 10/13/21 04/23/24 04/21/24 History atorvastatin 20 mg tablet 20 mg PO DAILY 10/13/21 04/23/24 04/22/24 History omega-3 fatty acids 1,000 mg 1,000 mg PO DAILY 10/13/21 04/23/24 04/22/24 History capsule lisinopril 20 mg tablet 20 mg PO BEDTIME 03/23/22 04/23/24 04/21/24 History calcium carbonate (Oyster Shell 500 mg PO BEDTIME 08/07/22 04/23/24 04/21/24 History Calcium) docusate sodium 100 mg capsule 100 mg PO DAILY 12/21/22 04/23/24 04/22/24 History clotrimazole 1 % topical cream 1 appl topical BID PRN Rash Under 09/15/23 04/23/24 Unknown History Breast cholecalciferol (vitamin D3) 25 25 mcg PO DAILY 10/04/23 04/23/24 04/22/24 History mcg (1,000 unit) capsule alendronate 70 mg tablet 70 mg PO TH 04/23/24 04/23/24 04/18/24 History levothyroxine 100 mcg tablet 100 mcg PO DAILY@0600 04/23/24 04/23/24 04/22/24 History loratadine 10 mg tablet 10 mg PO DAILY 04/23/24 04/23/24 04/22/24 History Physical Exam Vital Signs: Vital Signs: Last Vital Signs Temp 97.5 F 04/23/24 08:12 Pulse 86 04/23/24 08:12 Resp 20 04/23/24 08:12 BP 115/68 04/23/24 08:12 Pulse Ox 95 04/23/24 08:12 O2 Del Method Room Air 04/23/24 08:12 BMI result Body Mass Index 25.2 Neuro: Other: She is alert and awake with normal spontaneity of speech fluency comprehension and affect. She is able to name and repeat. Face is symmetrical. Visual [place] are full. There was no focal arm or leg weakness. [id number] testing is okay. Plantars are flexor. Results Labs 04/23/24 04:45 04/23/24 04:45 Labs: Short CBC 04/22/24 04/23/24 Range/Units 22:10 04:45 WBC 5.1 6.2 (4.8-10.8) X10*3/uL Hgb 13.2 13.1 (12.0-16.0) g/dl Hct 39.7 39.1 (37.0-47.0) % Plt Count 223 219 (160-400) X10*3/uL BMP 04/22/24 04/23/24 22:10 04:45 Sodium 141 141 Potassium 3.5 3.5 Chloride 109 H 111 H Carbon Dioxide 24 22 BUN 12 11 Creatinine 0.49 L 0.52 Calcium 8[address] revealed moderately severe cerebellar and cerebral atrophy and moderately severe chronic microvascular ischemic changes. CTA did not reveal any large vessel stenosis. Assessment and Plan (1) Encephalopathy: Qualifiers: Encephalopathy type: unspecified encephalopathy Qualified Code(s): G93.40 - Encephalopathy, unspecified Status: Acute 79 years old woman was brought to hospital for unresponsiveness and change in her speech. Her examination at this time suggested underlying dementia but otherwise no focality. She has significant cerebral atrophy and microvascular disease suggesting multifactorial degenerative +vascular dementia. Overall presentation is not suggestive of an acute stroke. An EEG is recommended to rule out seizure disorder. Procedures Date of Service Date of Service: 04/23/24
--- NOTE | 2024-04-23 10:24 | PC.NURSE ---
Pt. c/o inability to pee and pointing to her bladder. Bladder scanned for 897ccs. Reagan Breaux MD notified and this RN ordered to straight cath. pt.
[2024-04-23 10:54] LABS: Appearance Urine Clear; Color Urine Yellow; Glucose Urine UA Negative (Negative); Leukocyte Esterase Urine Negative (Negative); Nitrite Urine Negative (Negative); PH 6.5 (5.0-9.0); Specific Gravity - Urine >= 1.030 (1.005-1.025); UMIC TRIGGER UACC YES; Urine Blood Trace (Negative); Urine Ketones Negative (Negative); Urine Protein Negative (Neg-Trace)
[2024-04-23 10:59] LABS: Bacteria Urine Trace (None Seen); Hyaline Casts Urine 0-2 /LPF (0-2); Squamous Epithelial Cell Urine 0-2 /HPF (0-2); WBC Urine 0-5 /HPF (0-5)
--- NOTE | 2024-04-23 12:20 | MHC.CM.PN ---
Patient is here with a new CVA, Intellectual Disability, and Encephalopathy; CM spoke with Patient's Outreach Document Examiner/Iwona @ [phone] and addressed IMM with her (original will be mailed certified letter to Iwona and a copy will be placed on the chart). Patient lives alone in a house with 28 hours/week of Outreach Services through [employer] and she required no DME [employer] INST[employer]. PT is recommending Acute Rehab and per Iwona, Patient has been to [facility] in the past and had a good experience there. CM has initiated and will follow for dc planning. PCP is Dr. Sangeetha Sage and Patient will require BLS to Acute Rehab.HCP is Saray, Patient's Friend and Therapist for over 30 years.
--- NOTE | 2024-04-23 13:29 | MHC.EDTECH ---
poc blood glucose not completed on time d/t patient off-unit in MRI. rn aware. will test at next available opportunity.
[2024-04-23 13:54] LABS: Glucose, Whole Blood 119 mg/dL (60-115)
--- NOTE | 2024-04-23 14:04 | P.PNIM_ITS ---
Subjective Subjective Date of Service: 04/23/24 Interval History: encephalopathy Review of Systems seems similar ,weak no new episode unresponsiveness no new symptoms except right knee pain Physical Exam 2 Vital Signs: Vital Signs: Last Vital Signs Temp 97.5 F 04/23/24 08:12 Pulse 77 04/23/24 13:55 Resp 16 04/23/24 13:55 BP 152/73 H 04/23/24 13:55 Pulse Ox 97 04/23/24 13:55 O2 Del Method Room Air 04/23/24 13:55 BMI result Body Mass Index 25.2 Resp: CTA bilaterally CVS: RRR,s1s2 heard. GI: +BS, nt, no distention Skin: Warm, dry Neuro: Cranial nerves II-XII grossly intact bilaterally. Motor exam simialr to h&P. Extremities: pulses present,No LE edema Objective Data Active Medications Acetaminophen (Acetaminophen 325 Mg Tablet) 975 mg PO Q6H PRN PRN Reason: Pain, Mild 1-3,fever,headache Last Admin: 04/23/24 08:14 Dose: 975 mg Documented By: CHANTE Calcium Carbonate (Calcium Carbonate 750 Mg Tab.Chew) 750 mg PO Q4H PRN PRN Reason: Heartburn Dextrose (Dextrose 50 % 25 Gm/50 Ml Syringe) 25 gm IVPUSH Q15M PRN; Protocol PRN Reason: per Hypoglycemia Standing Ord. Enoxaparin Sodium (Enoxaparin Sodium 40 Mg/0.4 Ml Syringe) 40 mg SUBCUT Q24H [facility] Last Admin: 04/23/24 08:14 Dose: 40 mg Documented By: CHANTE Glucose (Glucose Gel 15 Gm Gel..Gram.) 15 gm PO Q15M PRN; Protocol PRN Reason: per Hypoglycemia Standing Ord. Insulin Human Lispro (Insulin Lispro 100 Unit/Ml 3 Ml Vial) 0 unit SUBCUT QIDACHS [facility]; Protocol Last Admin: 04/23/24 13:53 Dose: Not Given Documented By: MARKO Non-Admin Reason: No Insulin Coverage Magnesium Hydroxide (Milk Of Magnesia 30 Ml Oral.Susp) 30 ml PO DAILY PRN PRN Reason: Constipation Melatonin (Melatonin 3 Mg Tablet) 6 mg PO BEDTIME PRN PRN Reason: Insomnia Sodium Chloride (0.9 % Sodium Chloride Flush 3 Ml Syringe) 3 ml IVFLUSH QSHIFT [facility] Last Admin: 04/23/24 08:03 Dose: Not Given Documented By: CHANTE Non-Admin Reason: Previously Administered Labs 04/23/24 04:45 04/23/24 04:45 Labs: Laboratory Results - last 24 hr 04/22/24 04/22/24 04/22/24 21:33 21:34 22:10 MCV 84.6 MCH 28.1 MCHC 33.2 RDW 14.9 Plt Count 223 MPV 9.4 Immature Gran % (Auto) 0.2 Neut % (Auto) 65.9 Lymph % (Auto) 22.0 Butler % (Auto) 6.8 Eos % (Auto) 4.5 H Baso % (Auto) 0.6 Lymph # (Auto) 1.1 L Butler # (Auto) 0.4 Eos # (Auto) 0.2 Baso # (Auto) 0.0 Abs Immat Gran (auto) 0.01 Absolute Neuts (auto) 3.4 Absolute Nucleated RBC 0.000 Nucleated RBC % (auto) 0.0 PT 11.4 Whole Blood PT 11.8 INR 1.0 Whole Blood INR 1.0 APTT 30.5 D Anion Gap 12 Estim Creat Clear Calc 67.1 Estimated GFR > 60 POC Glucose 115 Random Glucose 117 H Estimat Average Glucose 117 Hemoglobin A1c % 5.7 Calcium 8.6 D Triglycerides 129 Cholesterol 117 LDL Cholesterol, Calc 55 HDL Cholesterol 37 L Urine Color Urine Appearance Urine pH Ur Specific [place] Urine Protein Urine Glucose (UA) Urine Ketones Urine Blood Urine Nitrite Ur Leukocyte Esterase Urine RBC Urine WBC Ur Squamous Epith Cells Urine Bacteria Hyaline Casts 04/23/24 04/23/24 04/23/24 04:45 07:05 10:42 MCV 83.9 MCH 28.1 MCHC 33.5 RDW 15.0 Plt Count 219 MPV 9.4 Immature Gran % (Auto) Neut % (Auto) Lymph % (Auto) Butler % (Auto) Eos % (Auto) Baso % (Auto) Lymph # (Auto) Butler # (Auto) Eos # (Auto) Baso # (Auto) Abs Immat Gran (auto) Absolute Neuts (auto) Absolute Nucleated RBC 0.000 Nucleated RBC % (auto) 0.0 PT Whole Blood PT INR Whole Blood INR APTT Anion Gap 12 Estim Creat Clear Calc 63.2 Estimated GFR > 60 POC Glucose 93 Random Glucose 100 Estimat Average Glucose Hemoglobin A1c % Calcium 8.7 Triglycerides Cholesterol LDL Cholesterol, Calc HDL Cholesterol Urine Color Yellow Urine Appearance Clear Urine pH 6.5 Ur Specific [place] >= 1.030 H Urine Protein Negative Urine Glucose (UA) Negative Urine Ketones Negative Urine Blood Trace H Urine Nitrite Negative Ur Leukocyte Esterase Negative Urine RBC 3-5 H Urine WBC 0-5 Ur Squamous Epith Cells 0-2 Urine Bacteria Trace Hyaline Casts 0-2 04/23/24 13:50 MCV MCH MCHC RDW Plt Count MPV Immature Gran % (Auto) Neut % (Auto) Lymph % (Auto) Butler % (Auto) Eos % (Auto) Baso % (Auto) Lymph # (Auto) Butler # (Auto) Eos # (Auto) Baso # (Auto) Abs Immat Gran (auto) Absolute Neuts (auto) Absolute Nucleated RBC Nucleated RBC % (auto) PT Whole Blood PT INR Whole Blood INR APTT Anion Gap Estim Creat Clear Calc Estimated GFR POC Glucose 119 H Random Glucose Estimat Average Glucose Hemoglobin A1c % Calcium Triglycerides Cholesterol LDL Cholesterol, Calc HDL Cholesterol Urine Color Urine Appearance Urine pH Ur Specific [place] Urine Protein Urine Glucose (UA) Urine Ketones Urine Blood Urine Nitrite Ur Leukocyte Esterase Urine RBC Urine WBC Ur Squamous Epith Cells Urine Bacteria Hyaline Casts Assessment and Plan (1) Encephalopathy: Status: Acute Plan 79 yo female with a pmhx significant for hx CVA, HTN, CAD, hypothyroid, GERD, chronic constipation, DM, chronic anemia, mild aortic regurg, and intellectual disability, who presented to the ED by EMS after being found unresponsive on her couch, by her SENIOR TABLEAU DEVELOPER, downtime unknown. ? encephalopathy unclear etiology head CT negative, CTA head and neck negative MRI pending UA : no pyuria ,trace bacteria lipids with low HDL otherwise normal plan: moniter on tele,neuro checks continue statin, Plavix and aspirin PT/ OT eval/ bedside swallow eval neurology eval noted-likely encephalopathy,less likely cva mri pending,added eeg Chest pain - EKG x2 negative, right bundle branch block, no ischemic changes - troponin x2 negative thought to be pain reproducible with palpation, likely costochondritis currently denies chest pain ,monitor with telemetry Diarrhea - abdominopelvic CT pending - GI panel and C diff ordered - no BM here yet Fungal rash under breasts- continue clotrimazole cream BID HTN- home meds tomorrow Hypothyroid- continue home meds Chronic constipation- hold luxatives. Diabetes - sliding scale insulin - diabetic diet - check A1c Chronic anemia- H&H normal and stable - monitor CBC VTE prophylaxis: Lovenox encepahlopathy -unclear etiology -need workup ,tele monitoring and Neurology followup Quality Stroke Does the patient have a stroke diagnosis?: Yes Reason for No Anti-thrombotic by Day Two: Contraindicated VTE Prior VTE?: No VTE Risk Level:: Medical - moderate - high VTE Device Contraindication: Treatment Not Indicated VTE Drug Contraindication: N/A - Med Ordered
--- NOTE | 2024-04-23 14:34 | PC.NURSE ---
Pt. noted to be bleeding from a spot on her abdomen. Pt. oozing from this morning's Lovenox injection site. Reagan Breaux MD aware and advises to put gentle pressure to the area.
[2024-04-23] MEDS: Atorvastatin Calcium 20 MG TABLET PO (16:02)
[2024-04-23] MEDS: Clopidogrel Bisulfate 75 MG TABLET PO (16:02)
[2024-04-23] MEDS: Loratadine 10 MG TABLET PO (16:02)
[2024-04-23] MEDS: 0.9 % Sodium Chloride Flush 3 ML SYRINGE IVFLUSH ×2 (16:02→20:58)
[2024-04-23] MEDS: Levothyroxine Sodium 100 MCG TABLET PO (16:02)
[2024-04-23] MEDS: Tamsulosin HCL 0.4 MG CAPSULE PO (16:02)
[2024-04-23] MEDS: Docusate Sodium 100 MG CAPSULE PO (16:02)
[2024-04-23 16:19] LABS: Glucose, Whole Blood 111 mg/dL (60-115)
[2024-04-23 19:56] LABS: Glucose, Whole Blood 214 mg/dL (60-115)
[2024-04-23] MEDS: Nystatin Powder 15 GM BOTTLE 1 APPL TOPICAL (20:53)
[2024-04-23] MEDS: Clotrimazole 1 % Cream 15 GM TUBE 1 APPL TOPICAL (20:54)
[2024-04-23] MEDS: Fluconazole 150 MG TABLET PO (20:56)
[2024-04-23] MEDS: Aspirin Enteric Coated 81 MG TABLET.DR PO (20:56)
[2024-04-23] MEDS: Trolamine Salicylate 10 % Cream 85 GM TUBE 1 APPL TOPICAL (20:56)
[2024-04-23] MEDS: Insulin Lispro 100 UNIT/ML 3 ML VIAL SUBCUT (21:14)
[2024-04-23] MEDS: Melatonin 3 MG TABLET 6 MG PO (21:19)
[2024-04-24] VITALS (8 sets, daily range): BP systolic 92–146; BP diastolic 58–78; PULSE 74–115; RESP 16–20; TEMP 36.1–36.5; O2SAT 94–97
[2024-04-24] MEDS: Acetaminophen 325 MG TABLET 975 MG PO (01:16)
[2024-04-24] MEDS: Levothyroxine Sodium 100 MCG TABLET PO (05:28)
[2024-04-24] MEDS: Famotidine/PF 20 MG/2 ML VIAL IVPUSH (06:30)
[2024-04-24] MEDS: Morphine Sulfate 2 MG/ML CARTRIDGE 0.5 MG IVPUSH (06:30)
[2024-04-24 06:48] LABS: Anion Gap 13 (12-20); Blood Urea Nitrogen 18 mg/dL (9-16); Calcium 9.2 mg/dL (8.4-10.2); Carbon Dioxide 24 mmol/L (22-29); Chloride 106 mmol/L (96-108); Creatinine Clr Calc Pharmacy 58.9; Estimated Glomerular Filt Rate > 60; Glucose Random 114 mg/dL (60-115); Potassium 3.6 mmol/L (3.3-5.1); Sodium 139 mmol/L (135-145)
[2024-04-24 06:54] LABS: Troponin-I High Sensitivity 14.8 ng/L (<3.5-17.0)
[2024-04-24 07:08] LABS: Hematocrit 39.9 % (37.0-47.0); Hemoglobin 13.4 g/dl (12.0-16.0); Mean Corpuscular HGB Conc 33.6 g/dl (31.0-35.0); Mean Corpuscular Hemoglobin 28.5 pg (27.0-33.0); Mean Corpuscular Volume 84.9 fL (80.0-98.0); Mean Platelet Volume 9.7 fL (9.4-12.3); Platelet Count 229 X10*3/uL (160-400); Red Cell Distribution Width 14.8 % (11.0-16.0); White Blood Count 7.3 X10*3/uL (4.8-10.8)
[2024-04-24 07:24] LABS: Glucose, Whole Blood 110 mg/dL (60-115)
[2024-04-24] MEDS: Trolamine Salicylate 10 % Cream 85 GM TUBE 1 APPL TOPICAL (10:09)
[2024-04-24] MEDS: Clopidogrel Bisulfate 75 MG TABLET PO (10:10)
[2024-04-24] MEDS: Clotrimazole 1 % Cream 15 GM TUBE 1 APPL TOPICAL ×2 (10:10→22:30)
[2024-04-24] MEDS: Atorvastatin Calcium 20 MG TABLET PO (10:10)
[2024-04-24] MEDS: Cholecalciferol (Vitamin D3) 25 MCG TABLET PO (10:10)
[2024-04-24] MEDS: Loratadine 10 MG TABLET PO (10:10)
[2024-04-24] MEDS: Tamsulosin HCL 0.4 MG CAPSULE PO (10:10)
[2024-04-24] MEDS: Docusate Sodium 100 MG CAPSULE PO (10:11)
[2024-04-24] MEDS: 0.9 % Sodium Chloride Flush 3 ML SYRINGE IVFLUSH ×3 (10:17→21:10)
[2024-04-24] MEDS: Nystatin Powder 15 GM BOTTLE 1 APPL TOPICAL ×2 (10:18→21:10)
--- NOTE | 2024-04-24 11:26 | MHC.SL.SWA ---
Speech Pathologist Impression: Mild dysphagia Risk of Aspiration Due to: Neurological Condition Reduced Cognition Dysphasia Diet Status: Treatment not indicated at the Acute level of care. Liquid Consistency and Strategies for Safe Swallow: Liquid Intake Recommendation: Thin Liquid Intake Strategies: Small Sips Solid Food Consistency: Dietary Recommendations: Grnd/Mech Altered (NDD2) Additional Modifications to Solid Foods: Patient presents with mild oropharyngeal dysphagia, with hx prior CVA, GERD, and intellectual disability. Patient is admitted for concern of stroke, presented with dysarthria, aphasia, and RUE weakness. Patient was not able to feed herself using her right hand and was unsteady using her left, requiring 1:1 assistance. Patient is edentulous, with absent dentures, and also presents with mild oral weakness and reduced ROM of tongue and jaw. Recommend start on GROUND/MECH ALTERED (NDD2) diet and THIN liquids, pills CRUSHED in PUREE with 1:1 feeding and aspiration precautions. Oral Medication Intake: Crushed with Puree Please contact the pharmacy regarding appropriate crushable or liquid drug formulations that are available whenever modified delivery is recommended. Compensatory Strategies and Precautions to be Taken for Safe Swallow: Sitting Upright (90 deg) Small Bites and Sips Alternate Liquids/Solids Rate of Ingestion Change Supervision While Eating and Drinking for Safe Swallow: Total Assistance (1:1) Foods to Avoid: Hard, tough to chew solids, crunchy or sticky foods Swallowing Recommended Treatments: Compens. Strategy Educat. Recommendation for Speech: Inpatient Speech Therapy Comment: Patient tolerating GROUND/MECH ALTERED (NDD2) diet and THIN liquids, pills CRUSHED in PUREE with 1:1 feeding and aspiration precautions. No further skilled ST indicated upon d/c at this time. Frequency/Duration: M-F Date Range for Service Req: Timeline to reassess: PRN Business Performance Analyst Clinican/Clinical Fellow: No Supervisory Statement: I have reviewed and agree with the student/clinical fellow's documentation: N/A Speech Language Pathologist: Kelly Aguilar M.S., CCC-CARDIOLOGY TECHNICIAN
--- NOTE | 2024-04-24 11:42 | HO.PM.IMPN ---
Subjective Subjective Date of Service: 04/24/24 Interval History: Feeling better Physical Exam Vital Signs: Vital Signs: Last Vital Signs Temp 97.0 F 04/24/24 08:00 Pulse 79 04/24/24 08:40 Resp 20 04/24/24 08:00 BP 108/72 04/24/24 08:40 Pulse Ox 96 04/24/24 08:40 O2 Del Method Room Air 04/24/24 08:00 BMI result Body Mass Index 24.4 General: AO X 3, no acute distress Resp: CTA bilateral, no accessory muscles used CVS: S1,S2,RRR GI: soft, non tender, non distended Neuro: motor grossly intact, alert Objective Data Active Medications Acetaminophen (Acetaminophen 325 Mg Tablet) 975 mg PO Q6H PRN PRN Reason: Pain, Mild 1-3,fever,headache Last Admin: 04/24/24 01:16 Dose: 975 mg Documented By: CHEN Aspirin (Aspirin Enteric Coated 81 Mg Tablet.) 81 mg PO BEDTIME [facility] Last Admin: 04/23/24 20:56 Dose: 81 mg Documented By: CHEN Atenolol (Atenolol 50 Mg Tablet) 50 mg PO BEDTIME [facility]; Protocol Last Admin: 04/23/24 21:07 Dose: Not Given Documented By: CHEN Non-Admin Reason: Physician Held Med Atorvastatin Calcium (Atorvastatin Calcium 20 Mg Tablet) 20 mg PO DAILY [facility] Last Admin: 04/24/24 10:10 Dose: 20 mg Documented By: MARIELLE Calcium Carbonate (Calcium Carbonate 750 Mg Tab.Chew) 750 mg PO Q4H PRN PRN Reason: Heartburn Calcium Carbonate (Calcium Oyster Shell Elemental 500 Mg Tablet) 500 mg PO BEDTIME [facility] Last Admin: 04/23/24 21:06 Dose: Not Given Documented By: CHEN Non-Admin Reason: Patient Refused Clopidogrel Bisulfate (Clopidogrel Bisulfate 75 Mg Tablet) 75 mg PO DAILY [facility] Last Admin: 04/24/24 10:10 Dose: 75 mg Documented By: MARIELLE Clotrimazole (Clotrimazole 1 % Cream 15 Gm Tube) 1 appl TOPICAL BID [facility]; Protocol Last Admin: 04/24/24 10:10 Dose: 1 appl Documented By: MARIELLE Dextrose (Dextrose 50 % 25 Gm/50 Ml Syringe) 25 gm IVPUSH Q15M PRN; Protocol PRN Reason: per Hypoglycemia Standing Ord. Docusate Sodium (Docusate Sodium 100 Mg Capsule) 100 mg PO DAILY [facility] Last Admin: 04/24/24 10:11 Dose: 100 mg Documented By: MARIELLE Enoxaparin Sodium (Enoxaparin Sodium 40 Mg/0.4 Ml Syringe) 40 mg SUBCUT Q24H [facility] Last Admin: 04/24/24 10:17 Dose: Not Given Documented By: MARIELLE Non-Admin Reason: Patient Refused Glucose (Glucose Gel 15 Gm Gel..Gram.) 15 gm PO Q15M PRN; Protocol PRN Reason: per Hypoglycemia Standing Ord. Insulin Human Lispro (Insulin Lispro 100 Unit/Ml 3 Ml Vial) 0 unit SUBCUT QIDACHS [facility]; Protocol Last Admin: 04/24/24 08:50 Dose: Not Given Documented By: MARIELLE Non-Admin Reason: No Insulin Coverage Levothyroxine Sodium (Levothyroxine Sodium 100 Mcg Tablet) 100 mcg PO DAILY@0600 [facility] Last Admin: 04/24/24 05:28 Dose: 100 mcg Documented By: EVARISTO Lisinopril (Lisinopril 20 Mg Tablet) 20 mg PO BEDTIME [facility]; Protocol Last Admin: 04/23/24 21:07 Dose: Not Given Documented By: CHEN Non-Admin Reason: Physician Held Med Loratadine (Loratadine 10 Mg Tablet) 10 mg PO DAILY [facility] Last Admin: 04/24/24 10:10 Dose: 10 mg Documented By: MARIELLE Magnesium Hydroxide (Milk Of Magnesia 30 Ml Oral.Susp) 30 ml PO DAILY PRN PRN Reason: Constipation Melatonin (Melatonin 3 Mg Tablet) 6 mg PO BEDTIME PRN PRN Reason: Insomnia Last Admin: 04/23/24 21:19 Dose: 6 mg Documented By: CHEN Comments: requested for sleep Nystatin (Nystatin Powder 15 Gm Bottle) 1 appl TOPICAL TID [facility]; Protocol Last Admin: 04/24/24 10:18 Dose: 1 appl Documented By: MARIELLE Sodium Chloride (0.9 % Sodium Chloride Flush 3 Ml Syringe) 3 ml IVFLUSH QSHIFT [facility] Last Admin: 04/24/24 10:17 Dose: 3 ml Documented By: MARIELLE Tamsulosin HCl (Tamsulosin Hcl 0.4 Mg Capsule) 0.4 mg PO DAILY [facility] Last Admin: 04/24/24 10:10 Dose: 0.4 mg Documented By: MARIELLE Trolamine Salicylate (Trolamine Salicylate 10 % Cream 85 Gm Tube) 1 appl TOPICAL BID PRN; Protocol PRN Reason: pain muscle Last Admin: 04/24/24 10:09 Dose: 1 appl Documented By: MARIELLE Vitamin D (Cholecalciferol (Vitamin D3) 25 Mcg Tablet) 25 mcg PO DAILY [facility] Last Admin: 04/24/24 10:10 Dose: 25 mcg Documented By: MARIELLE Labs 04/24/24 06:09 04/24/24 06:09 Labs: Laboratory Results - last 24 hr 04/23/24 04/23/24 04/23/24 13:50 16:15 19:43 MCV MCH MCHC RDW Plt Count MPV Absolute Nucleated RBC Nucleated RBC % (auto) Anion Gap Estim Creat Clear Calc Estimated GFR POC Glucose 119 H 111 214 H Random Glucose Calcium 04/24/24 04/24/24 06:09 07:14 MCV 84.9 MCH 28.5 MCHC 33.6 RDW 14.8 Plt Count 229 MPV 9.7 Absolute Nucleated RBC 0.000 Nucleated RBC % (auto) 0.0 Anion Gap 13 Estim Creat Clear Calc 58.9 Estimated GFR > 60 POC Glucose 110 Random Glucose 114 Calcium 9.2 Assessment and Plan (1) Encephalopathy: Status: Acute Plan 79F PMH CVA, hypertension, coronary artery disease, hypothyroid, GERD, chronic constipation, diabetes, intellectual disability presented with episode of unresponsiveness Episode of unresponsiveness Differential includes seizure, acute metabolic encephalopathy in the setting of dementia MRI negative for acute stroke Neuro appreciated recommended EEG PT appreciated recommending acute rehab Vaginal candidiasis will give 2nd dose of Diflucan Chest pain Resolved, troponin negative Diabetes Continue insulin Hypothyroid Continue levothyroxine Coronary artery disease, history of CVA Continue dual antiplatelet and statin DVT prophylaxis with Lovenox DNR/DNI reason for continued hospitalization: Awaiting EEG Quality Stroke Does the patient have a stroke diagnosis?: Yes Reason for No Anti-thrombotic by Day Two: Contraindicated VTE Prior VTE?: No VTE Risk Level:: Medical - moderate - high VTE Device Contraindication: Treatment Not Indicated VTE Drug Contraindication: N/A - Med Ordered
[2024-04-24 12:30] LABS: Glucose, Whole Blood 157 mg/dL (60-115)
[2024-04-24] MEDS: Insulin Lispro 100 UNIT/ML 3 ML VIAL SUBCUT (12:41)
--- NOTE | 2024-04-24 12:54 | MHC.CM.PN ---
EMR reviewed and per MD rounds, pt is not medically cleared for discharge today. This CM met with pt to discuss discharge plans, she does not want to go to rehab and states [facility]. Anticipate pt will return home tomorrow 04/25 with resumption of previous services, [facility] staff to transport her home tomorrow.
[2024-04-24] MEDS: Fluconazole 150 MG TABLET PO (14:11)
[2024-04-24 16:41] LABS: Glucose, Whole Blood 113 mg/dL (60-115)
[2024-04-24 20:10] LABS: Glucose, Whole Blood 133 mg/dL (60-115)
[2024-04-24] MEDS: Melatonin 3 MG TABLET 6 MG PO (20:53)
[2024-04-24] MEDS: Calcium Oyster Shell Elemental 500 MG TABLET PO (21:08)
[2024-04-24] MEDS: Aspirin Enteric Coated 81 MG TABLET.DR PO (21:08)
[2024-04-25 03:20] VITALS: BP 102/60; PULSE 93; RESP 16; TEMP 36.8; O2SAT 98
[2024-04-25] MEDS: Levothyroxine Sodium 100 MCG TABLET PO (06:35)
[2024-04-25 06:59] LABS: Hematocrit 41.2 % (37.0-47.0); Hemoglobin 13.5 g/dl (12.0-16.0); Mean Corpuscular HGB Conc 32.8 g/dl (31.0-35.0); Mean Corpuscular Hemoglobin 28.1 pg (27.0-33.0); Mean Corpuscular Volume 85.7 fL (80.0-98.0); Mean Platelet Volume 9.7 fL (9.4-12.3); Platelet Count 235 X10*3/uL (160-400); Red Blood Count 4.81 X10*6/uL (4.20-5.50); White Blood Count 6.2 X10*3/uL (4.8-10.8)
[2024-04-25 07:15] LABS: Anion Gap 12 (12-20); Blood Urea Nitrogen 14 mg/dL (9-16); Calcium 9.4 mg/dL (8.4-10.2); Carbon Dioxide 26 mmol/L (22-29); Chloride 107 mmol/L (96-108); Creatinine Clr Calc Pharmacy 62.3; Estimated Glomerular Filt Rate > 60; Glucose Random 112 mg/dL (60-115); Potassium 4.2 mmol/L (3.3-5.1); Sodium 141 mmol/L (135-145)
[2024-04-25 07:50] LABS: Glucose, Whole Blood 111 mg/dL (60-115)
[2024-04-25 07:55] VITALS: BP 119/75; PULSE 77; RESP 18; TEMP 36.8; O2SAT 99
[2024-04-25] MEDS: Tamsulosin HCL 0.4 MG CAPSULE PO (09:16)
[2024-04-25] MEDS: Clopidogrel Bisulfate 75 MG TABLET PO (09:16)
[2024-04-25] MEDS: Atorvastatin Calcium 20 MG TABLET PO (09:16)
[2024-04-25] MEDS: Loratadine 10 MG TABLET PO (09:16)
[2024-04-25] MEDS: Enoxaparin Sodium 40 MG/0.4 ML SYRINGE SUBCUT (09:16)
[2024-04-25] MEDS: Cholecalciferol (Vitamin D3) 25 MCG TABLET PO (09:16)
[2024-04-25] MEDS: Trolamine Salicylate 10 % Cream 85 GM TUBE 1 APPL TOPICAL (09:17)
[2024-04-25] MEDS: Clotrimazole 1 % Cream 15 GM TUBE 1 APPL TOPICAL (09:18)
[2024-04-25] MEDS: Nystatin Powder 15 GM BOTTLE 1 APPL TOPICAL (09:18)
--- NOTE | 2024-04-25 10:26 | P.DS_ITS ---
DS: Providers Provider Date of Service: 04/25/24 Date of admission: 04/23/24 00:14 Date of discharge: 04/25/24 Primary care physician: Eb Bone MD Consults: 04/23/24 00:18 Consult to Neurology Routine Consulting Provider: Sheree Arce Reason for consultation: CVA Has provider been notified: Yes DS: Diagnosis Discharge Diagnosis (1) Encephalopathy: Status: Acute DS: Summary Hospital Course Hospital Course: from initial hpi: 79 yo female with a pmhx significant for hx CVA, HTN, CAD, hypothyroid, GERD, chronic constipation, DM, chronic anemia, mild aortic regurg, and intellectual disability, who presented to the ED by EMS after being found unresponsive on her couch, by her BOILER/CHILLER TECHNICIAN, downtime unknown. She reportedly left a voice mail that was very unclear for her BOILER/CHILLER TECHNICIAN, likely some dysarthria. the patient was responsive by verbal stimuli when EMS arrived. The patient's speech has been coming back slightly while in the ED, she is able to communicate by writing and she can articulate some words quietly. She expressed that she had diarrhea all day and is having some abdominal discomfort mostly in the lower abdomen. She also shows a fungal rash under bilateral breasts, appears she is being treated with clotrimazole cream for this. She also reports upper sternal chest pain, reproducible with palpation, reports it radiates to the right shoulder but also states that this shoulder pain is chronic. CTA head and neck as well as head CT negative. Chest CT with large hiatal hernia. Labs unremarkable. EKG with right bundle-branch block, troponins negative. Neurology was consulted and reviewed CTs and recommended admission and MRI. Patient was given aspirin and already takes Plavix and a statin. hospital course: Patient was admitted for an episode of unresponsiveness. Differential included seizure, acute metabolic encephalopathy in the setting of dementia. MRI was negative for acute stroke. Was seen by neurology recommended EEG which was normal. Course was complicated by vaginal candidiasis which was treated with 2 doses of Diflucan. On admission had some chest pain which resolved, troponins were negative and this is unlikely cardiac. For diabetes was continued on insulin sliding scale, diet controlled at home. A1c 5.7. For hypothyroidism was continued on levothyroxine. For coronary artery disease and history of CVA was continued on dual antiplatelet therapy and statin. Patient was seen by physical therapy recommended acute rehab, however, patient is not interested at this time and will be discharged home. Time Attestation Discharge Coordination Time (in mins): 33 Quality: Safe Use of Opioids Does Pt have an Active Cancer Diagnosis on the Problem List?: No Quality: Stroke Does the patient have a stroke diagnosis?: No Physical Exam Vital Signs: Vital Signs: Last Vital Signs Temp 98.2 F 04/25/24 07:55 Pulse 77 04/25/24 07:55 Resp 18 04/25/24 07:55 BP 119/75 04/25/24 07:55 Pulse Ox 99 04/25/24 07:55 O2 Del Method Room Air 04/25/24 07:55 BMI result Body Mass Index 24.4 General: AO X 3, no acute distress Resp: CTA bilateral, no accessory muscles used CVS: S1,S2,RRR GI: soft, non tender, non distended Neuro: motor grossly intact, alert DS: Data Data Completed and Pending Completed studies during hospitalization [Text1]: Procedures Introduction of Other Thrombolytic into Peripheral Vein, Percutaneous Approach (08/07/22) Replacement of Left Hip Joint, Femoral Surface with Synthetic Substitute, Uncemented, Open Approach (09/15/23) Transfusion of Nonautologous Red Blood Cells into Peripheral Vein, Percutaneous Approach (08/07/22) Labs on day of discharge: Laboratory Results - last 24 hr 04/24/24 04/24/24 04/24/24 12:26 16:36 19:59 WBC RBC Hgb Hct MCV MCH MCHC RDW Plt Count MPV Absolute Nucleated RBC Nucleated RBC % (auto) Sodium Potassium Chloride Carbon Dioxide Anion Gap BUN Creatinine Estim Creat Clear Calc Estimated GFR POC Glucose 157 H 113 133 H Random Glucose Calcium 04/25/24 04/25/24 06:31 07:43 WBC 6.2 RBC 4.81 Hgb 13.5 Hct 41.2 MCV 85.7 MCH 28.1 MCHC 32.8 RDW 15.0 Plt Count 235 MPV 9.7 Absolute Nucleated RBC 0.000 Nucleated RBC % (auto) 0.0 Sodium 141 Potassium 4.2 Chloride 107 Carbon Dioxide 26 Anion Gap 12 BUN 14 Creatinine 0.52 Estim Creat Clear Calc 62.3 Estimated GFR > 60 POC Glucose 111 Random Glucose 112 Calcium 9.4 Discharge Plan Discharge Anticipated Discharge Date/Time: 04/25/24 10:23 Patient Disposition: Home Health Service Discharge Diagnosis: encephlaopathy Referrals: Eb Bone MD [Primary Care Provider] - 1 Week Discharge Medications: Continued lisinopril 20 mg tablet 20 mg PO BEDTIME calcium carbonate [Oyster Shell Calcium] 500 mg calcium (1,250 mg) Tablet 500 mg PO BEDTIME tamsulosin 0.4 mg Capsule 0.4 mg PO DAILY Qty: 30 0RF clopidogrel [Plavix] 75 mg tablet 75 mg PO DAILY Qty: 30 0RF alendronate 70 mg tablet 70 mg PO TH levothyroxine 100 mcg tablet 100 mcg PO DAILY@0600 loratadine 10 mg Tablet 10 mg PO DAILY clotrimazole 1 % cream 1 appl topical BID PRN (Reason: Rash Under Breast) atorvastatin 20 mg tablet 20 mg PO DAILY omega-3 fatty acids 1,000 mg capsule 1,000 mg PO DAILY atenolol 50 mg tablet 50 mg PO BEDTIME aspirin [Adult Low Dose Aspirin] 81 mg tablet,delayed release (DR/EC) 81 mg PO BEDTIME docusate sodium 100 mg capsule 100 mg PO DAILY cholecalciferol (vitamin D3) 25 mcg (1,000 unit) capsule 25 mcg PO DAILY Discharge Orders: Discharge Order (Routine); Ordered 04/25/24 Ordered By: Deepak Waldron Diet: ndd2 solids, thin liq Activity on Discharge: As tolerated Stand Alone Forms: Patient Portal Discharge page Print Language: Burkinan Care Plan Goals: recovery Health Concerns: ams Plan of Treatment: resolved Assessment: see above
--- NOTE | 2024-04-25 10:36 | MHC.CM.PN ---
PT MEDICALLY CLEARED FOR DC HOME W/RESUMPTION OF [facility], [facility], PT REPORED FINISHING RANGE OPERATOR CAN TRANSPORT PT HOME.
== END 2024-04-25 11:30 | disposition home health service (06) | DRG 72 ==
LOC: HO.ED 23:42 → HO.EDOVER 04-23 00:31 → HO.IMC 04-23 14:21
PROVIDERS: Hospitalist; Internal Medicine; Admitting Provider Physician Assistant; Emergency Provider Emergency Medicine; PCP Family Medicine; Visit Provider Internal Medicine
DX: G93.49 Other encephalopathy (principal); F03.90 Unspecified dementia, unspecified severity, without behavioral disturbance, psychotic disturbance, mood disturbance, and anxiety; F79 Unspecified intellectual disabilities; K59.09 Other constipation; B37.31 Acute candidiasis of vulva and vagina; B36.9 Superficial mycosis, unspecified; I10 Essential (primary) hypertension; R07.9 Chest pain, unspecified; E03.9 Hypothyroidism, unspecified; Z66 Do not resuscitate; I25.10 Atherosclerotic heart disease of native coronary artery without angina pectoris; R33.9 Retention of urine, unspecified; E11.9 Type 2 diabetes mellitus without complications; Z87.891 Personal history of nicotine dependence; Z79.82 Long term (current) use of aspirin; Z79.890 Hormone replacement therapy; Z79.02 Long term (current) use of antithrombotics/antiplatelets; Z79.899 Other long term (current) drug therapy
CPT/HCPCS: 36415; 70450; 70496; 70498; 70551; 71260; 73560; 74176; 80048; 80061; 81001; 82947; 83036; 84484; 85025; 85027; 85610; 85730; 92610; 93005; 95816; 97110; 97116; 97162; 97166; 97530; 99285; J1650; J2270; Q9967

== ENCOUNTER → 2024-04-22 21:33 | Outpatient (BNV) | payer MEDICARE, MEDICAID, SELFPAY | PROVIDERS: Admitting Provider Physician Assistant; Emergency Provider Emergency Medicine; PCP Family Medicine; Visit Provider Internal Medicine | DX: I45.10 Unspecified right bundle-branch block (principal) | CPT/HCPCS: 93010 ==

== ENCOUNTER → 2024-04-22 21:33 | Outpatient (BNV) | payer MEDICARE, MEDICAID, SELFPAY | PROVIDERS: Emergency Provider Emergency Medicine; Visit Provider Student in an Organized Health Care Education/Training Program | DX: K44.0 Diaphragmatic hernia with obstruction, without gangrene (principal) | CPT/HCPCS: 70450; 70496; 70498; 71260 ==

== ENCOUNTER → 2024-04-23 00:05 | Outpatient (BNV) | payer MEDICARE, MEDICAID, SELFPAY | PROVIDERS: Admitting Provider Physician Assistant; Emergency Provider Emergency Medicine; Visit Provider Radiology Diagnostic Radiology | DX: K57.30 Diverticulosis of large intestine without perforation or abscess without bleeding (principal); K44.0 Diaphragmatic hernia with obstruction, without gangrene; I82.C22 Chronic embolism and thrombosis of left internal jugular vein; M11.261 Other chondrocalcinosis, right knee; M17.11 Unilateral primary osteoarthritis, right knee; M85.861 Other specified disorders of bone density and structure, right lower leg | CPT/HCPCS: 73564 ==

== ENCOUNTER 2024-04-23 00:14 | Outpatient (BNV) | payer MEDICARE, MEDICAID, SELFPAY | END 2024-04-23 00:54 | PROVIDERS: Admitting Provider Physician Assistant; Emergency Provider Emergency Medicine; PCP Family Medicine; Visit Provider Internal Medicine | DX: I45.10 Unspecified right bundle-branch block (principal) | CPT/HCPCS: 93010 ==

== ENCOUNTER → 2024-04-23 00:14 | Outpatient (BNV) | payer MEDICARE, MEDICAID, SELFPAY | PROVIDERS: Admitting Provider Physician Assistant; Emergency Provider Emergency Medicine; PCP Family Medicine; Visit Provider Psychiatry & Neurology Neurology | DX: G93.40 Encephalopathy, unspecified (principal) | CPT/HCPCS: 99222 ==

== ENCOUNTER 2024-05-19 03:23 | Emergency (ER) | payer MEDICARE, MEDICAID, SELFPAY ==
--- NOTE | 2024-05-19 | ECG_ITS ---
Test Reason : SOB Blood Pressure : */* mmHG Vent. Rate : 93 BPM Atrial Rate : 93 BPM P-R Int : 164 ms QRS Dur : 116 ms QT Int : 404 ms P-R-T Axes : 34 -10 -34 degrees QTcB Int : 502 ms Normal sinus rhythm Incomplete right bundle branch block ST & T wave abnormality, consider anterolateral ischemia Prolonged QT Abnormal ECG When compared with ECG of 23-Apr-2024 00:54, No significant change was found Referred By: Generic ED Physician Electronically Signed By: BURT DEWITT
[2024-05-19 03:31] VITALS: BP 146/92; PULSE 98; O2SAT 99
[2024-05-19 03:35] VITALS: BP 155/98; PULSE 101; RESP 16; TEMP 36.2; O2SAT 94; BMI 21.1
[2024-05-19 04:32] LABS: Basophils Percent Auto 0.4 % (0-2); Eosinophils Percent Auto 0.2 % (0-4); Hematocrit 45.8 % (37.0-47.0); Hemoglobin 15.5 g/dl (12.0-16.0); Imm Gran Abs Auto 0.02 X10*3/uL (0.00-0.03); Imm Gran Pct Auto 0.2 % (0.0-0.4); Lymphocytes Absolute Auto 0.6 X10*3/uL (1.2-4.9); Lymphocytes Percent Auto 5.1 % (20-40); MANUAL DIFF FLAG SCAN; Mean Corpuscular HGB Conc 33.8 g/dl (31.0-35.0); Mean Corpuscular Hemoglobin 28.5 pg (27.0-33.0); Mean Corpuscular Volume 84.3 fL (80.0-98.0); Mean Platelet Volume 9.3 fL (9.4-12.3); Monocytes Absolute Auto 0.4 X10*3/uL (0.1-1.2); Monocytes Percent Auto 3.9 % (2-11); Neutrophils Absolute Auto 9.8 x10*3/uL (2.0-8.3); Neutrophils Percent Auto 90.2 % (45-73); Platelet Count 258 X10*3/uL (160-400); Red Blood Count 5.43 X10*6/uL (4.20-5.50); Red Cell Distribution Width 15.3 % (11.0-16.0); SCAN SMEAR FLAG 1; White Blood Count 10.9 X10*3/uL (4.8-10.8)
[2024-05-19 04:54] LABS: SLIDE REVIEW VERIFIED
[2024-05-19 04:55] LABS: Influenza A PCR NEGATIVE (Negative); Influenza B PCR NEGATIVE (Negative); Resp Syncy Virus RNA Qual PCR NEGATIVE (Negative); SARS COV2 PCR INHOUSE NEGATIVE (Negative)
[2024-05-19 05:05] LABS: Alanine Aminotransferase 9 U/L (0-31); Albumin Level 4.2 g/dL (3.5-5.0); Alkaline Phosphatase 100 U/L (39-117); Anion Gap 13 (12-20); Aspartate Amino Transferase 20 U/L (5-31); Bilirubin Total 0.8 mg/dL (0.0-1.0); Blood Urea Nitrogen 17 mg/dL (9-16); Calcium 9.2 mg/dL (8.4-10.2); Carbon Dioxide 22 mmol/L (22-29); Chloride 109 mmol/L (96-108); Creatinine Clr Calc Pharmacy 63.9; Estimated Glomerular Filt Rate > 60; Glucose Random 150 mg/dL (60-115); Lipase 14 U/L (8-78); Magnesium 2.3 mg/dL (1.6-2.6); Potassium 4.2 mmol/L (3.3-5.1); Sodium 140 mmol/L (135-145); Total Protein 6.9 g/dL (6.5-8.0)
--- OUTSIDE RECORDS SUMMARY | 2024-05-19 05:10 | XMS_ITS | Encounter Summary ---
Author Organization [facility] Address [address] [place] [address] Care Team Providers Care Controls Project Engineer Name Role Phone Sangeetha Sage MD Primary Care Provider [phone] Reason for Visit * Reason Comments Follow-up Diabetic foot care Encounter Details Date Type Department Care Team (Late st Contact Info) Description 05/15/2024 3:00 PM EDT Office Visit Orthopedic Surgery - [place] [address] [phone] Adrian Ford, DPM [address] [address] Hammer toe of left foot (Primary Dx); Ulcer of toe of left foot, with fat layer exposed (CMS/HCC); Acquired hammer toe of right foot; Primary osteoarthritis of both feet; Dermatophytosis of nail; Metatarsalgia of both feet; Corns and callosities; Bilateral femoral artery stenosis (CMS/HCC); Pain in toe of left foot; Tinea pedis of both feet; Pain in toe of right foot Social History Tobacco Use Types Packs/Day Years Used Date Smoking Tobacco: Former Cigarettes Q uit: 10/24/2015 Smokeless Tobacco: Former Quit: 08/27/2018 Alcohol Use Standard Drinks/Week Comments No 0 (1 standard drink = 0.6 oz pur e alcohol) Comments Unknown Sex and Gender Information Value Date Recorded Sex Assigned at Not on file Legal Sex Female 12:13 AM EST Gender Identity Not on file Sexual Orientation Not on file documented as of this encounter Last Filed Vital Signs Vital Sign Reading Time Taken Comments Blood Pressure - - Pulse - - Temperature - - Respiratory Rate - - Oxygen Saturation - - Inhaled Oxygen Concentration - - Weight 53.1 kg (117 lb) 05/15/2024 3:00 PM EDT Height 160 cm (5' 2.99 ) 05/15/2024 3:00 PM EDT Body Mass Index 20.73 05/15/2024 3:00 PM EDT documented in this encounter Progress Notes * Adrian Ford, ROBERTM - 05/15/2024 3:00 PM EDT Last PCP visit:Referring MD: 05/02/24 Dr Lizette Hewitt Presents today for evaluation she was not seen last appointment secondary to hip fracture subsequently missed the most previous appointment secondary to a stroke and was hospitalized she has had worsening ulceration of her left foot start pain in the top of her left fourth toe is sharp shooting achy and irritating she was unfortunately unable to make an appointment secondary to a stroke send prese nts today with help does not she have a nurse at home has been putting iodine on it notes her nailsare long and painful thickened calluses are painful and thick ROS: GENERAL: Pt denies nausea, fever, vomiting, chills, or shortness of breath. Pt in NAD. CARDIOLOGY: pt denies chest pain, palpitations LUNGS: pt denies shortness of breath MUSCULOSKELETAL: See HPI, otherwise no joint pain or swelling, back pain, or muscle pain. SKIN: see HPI, otherwise no lesions, rash or itching NEURO: No persistent headache, weakness or numbness The remainder of the review of systems is noncontributory PAST MEDICAL HISTORY: Patient Active Problem List Diagnosis Eddy's palsy Constipation Depression DNR (do not resuscitate) Esophageal reflux Gastritis Hypertension Hypothyroidism Idiopathic osteoporosis Microalbuminuria Moderate intellectual disabilities Onychomycosis Pure hypercholesterolemia Adnexal cyst Irritable bowel syndrome Rectocele Pelvic fracture (CMS/HCC) Stroke (CMS/HCC) Vitamin B12 deficiency DM (diabetes mellitus), type 2 with renal complications (CMS/HCC) SOCIAL HISTORY: Social History Tobacco Use Smoking status: Former Current packs/day: 0.00 Types: Cigarettes Quit date: 10/24/2015 Years since quittin.5 Smokeless tobacco: Former Quit date: 08/27/2018 Substance Use Topics Alcohol use: No ACTIVE MEDICATIONS: Outpatient Medications Marked as Taking for the 05/15/24 encounter (Office Visit) with Adrian Ford DPM Medication Sig Dispense Refill acetaminophen (TYLENOL) 500 mg tablet Take 2 tablets (1,000 mg total) by mouth. alendronate (FOSAMAX) 70 mg tablet TAKE 1 TABLET BY MOUTH EVERY 7 DAYS 4 tablet 5 Allergy Relief, loratadine, 10 mg tablet TAKE 1 TABLET BY MOUTH DAILY 28 tablet 4 ammonium lactate (AmLactin) 12 % lotion Apply topically if needed for dry skin. 400 g 0 aspirin 81 mg EC tablet TAKE 1 TABLET BY MOUTH EVERY NIGHT AT BEDTIME 28 tablet 5 atenoloL (TENORMIN) 50 mg tablet TAKE 1 TABLET BY MOUTH EVERY NIGHT AT BEDTIME 28 tablet 5 atorvastatin (LIPITOR) 20 mg tablet TAKE 1 TABLET BY MOUTH EVERY MORNING 28 tablet 5 calcium carbonate-vitamin D (Oysco 500/D) 500 mg-5 mcg (200 unit) per tablet Take 1 tablet by mouth. cholecalciferol (VITAMIN D-3) 50 mcg (2,000 unit) capsule Take 1 capsule (2,000 Units total) by mouth. clopidogreL (PLAVIX) 75 mg tablet TAKE 1 TABLET BY MOUTH DAILY 90 tablet 1 clotrimazole (LOTRIMIN) 1 % cream APPLY TOPICALLY TO THE AFFECTED AREA UNDER BREASTS TWICE A DAY ASNEEDED FOR RASH 30 g 4 diclofenac (VOLTAREN) 1 % topical gel PLACE 2G TOPICALLY 3 TIMES A DAY docusate sodium (COLACE) 100 mg capsule TAKE 1 CAPSULE BY MOUTH DAILY 28 capsule 5 hydrocortisone 2.5 % ointment levothyroxine (SYNTHROID, LEVOTHROID) 100 mcg tablet TAKE 1 TABLET BY MOUTH DAILY BEFORE BREAKFAST 28 tablet 5 lisinopriL (PRINIVIL,ZESTRIL) 20 mg tablet TAKE 1 TABLET BY MOUTH AT BEDTIME 90 tablet 1 omega 4-iws-ehp-fish oil 300 mg (120 mg- 180mg)-1,000 mg capsule TAKE 1 CAPSULE BY MOUTH EVERY MORNING 28 capsule 5 omega-3 acid ethyl esters (LOVAZA) 1 gram capsule Take 1 Can by mouth. Oyster Shell Calcium 500 500 mg calcium (1,250 mg) tablet TAKE 1 TABLET BY MOUTH EVERY NIGHT AT BEDTIME 28 tablet 5 polyethylene glycol (PEG) 17 gram/dose oral powder DISSOLVE 17 GRAMS IN 8OZ OF LIQUID AND DRINK DAILY 510 g 4 senna (SENOKOT) 8.6 mg tablet Take 2 tablets (17.2 mg total) by mouth. tamsulosin (FLOMAX) 0.4 mg 24 hr capsule TAKE 1 CAPSULE BY MOUTH DAILY TAKE 30 MINUTES AFTER SAME MEAL DAILY 28 capsule 4 Current Facility-Administered Medications for the 05/15/24 encounter (Office Visit) with Adrian Ford DPM Medication Dose Route Frequency Provider Last Rate Last Admin cyanocobalamin (VITAMIN B-12) injection 1,000 mcg 1,000 mcg intramuscular q30 days Sangeetha Sage MD1,000 mcg at 05/02/24 1030 ALLERGIES: Allergies Allergen Reactions Propoxyphene Numbness Other reaction(s): Numbness, tingling or swelling of the lips, tongue or mouth Metformin Hcl Diarrhea PHYSICAL EXAM: Visit Vitals Ht 1.6 m (62.99 ) Wt 53.1 kg (117 lb) BMI 20.73 kg/m?? Smoking Status Former BSA 1.54 m?? PODIATRIC EXAMINATION: GENERAL: Patient appears well nourished, with NAD. VASCULAR: Dorsalis pedis pulses are0/4 bilaterally and Posterior tibial pulses are 1/4 bilaterally.Capillary filling time within normal limits the digits. No pallor on elevation or rubor on dependency. Positive hair growth. No varicosities. Denies rest pain or claudication pain. NEUROLOGICAL: Sharp/dull sensation diminished, protective sensation diminished 5/10 with 5.07 semmes sharon bilaterally, vibratory sensation with tuning fork intact to the tibial tuberosity. ORTHOPEDIC: Good muscle strength 5/5 of all flexors and extensors. Dorsi flexion of ankle ,10 degrees, plantar flexion WNL. No muscle atrophy. DERMATOLOGICAL:.N Hyperkeratotic tissue subfirst metatarsal bilaterally subfifth metatarsal bilateral bilateral heelsdiffuse xerosis both feet Toenails: Left Toenail(s) 1-5: Crumbling upon debridement, subungual debris, discoloration, dystrophy, elongation, mycotic appearance, onychomycosis, pain and thickening. Right Toenail(s) 1-5: Crumbling upon debridement, subungual debris, discoloration, dystrophy, elongation, mycotic appearance, onychomycosis, pain and thickening. Annular scaling bilateral feet moccasin distribution ULCER: LOCATION left 4th digit SIZE, 3 mm X 3 mm X 3mm, BASE, fibro-granular, RIM, hyperkeratotic, UNDERMINING, mild, TRACKING, Sub Q with Fat layer exposed,NECROTIC TISSUE, loosely-adherent yellow slough, DRAINAGE, serous, moderate, MALODOR, absent, CALOR, absent, ERYTHEMA, absent. BIOMECHANICS: Ankle ROM rigid bilateral, STJ ROM wnl, MTJ ROM crepitation bilateral, 1st MPJ ROM wnl. Severe hammertoe contractures 2 through 5 bilateral Worsening contracture of the second digit bilateral with preulcerative lesion tip of toe IMAGING: IMPRESSION: 1. Hammer toe of left foot 2. Ulcer of toe of left foot, with fat layer exposed (CMS/HCC) 3. Acquired hammer toe of right foot 4. Primary osteoarthritis of both feet 5. Dermatophytosis of nail 6. Metatarsalgia of both feet 7. Corns and callosities 8. Bilateral femoral artery stenosis (CMS/HCC) 9. Pain in toe of left foot 10. Tinea pedis of both feet 11. Pain in toe of right foot PLAN: Pt was seen and examined, history reviewed. Worsening arthritis severe hammertoe contractures discussed reviewed Recommend continue iodine topically for wound care daily with visiting nurse Would recommend accommodative shoe gear silicone toe sleeves padding strapping Associated calluses and preulcerative lesions were removed Ammonium lactate prescribed for worsening xerosis of both the Patient should follow-up in 2 weeks Debridement of mycotic toenails 6-10: Verbal informed consent was obtained from the patient. Greater than 6 nails were aseptically debrided in thickness and length with nail nippers Hyperkeratotic tissue debrided pared with a number #15 scalpel blade x2 Open wound Open wound selective debridement of devitalized soft tissue, fibrin, epidermis, dermis, thru skin and subcutaneous tissue, first 20 sq cm or less, using sterile sharp dissection #15 scalpel blade. Pt. deferred anesthesia. . Devitalized tissue was not sent to pathology. Adrian Ford DPM documented in this encounter Plan of Treatment Upcoming Encounters Date Type Department Care Team (Late st Contact Info) Description 06/05/2024 10:00 AM EDT Clinical Support [address] [phone] 06/19/2024 10:00 AM EDT Office Visit Orthopedic Surgery - [place] [address] [phone] Adrian Ford, DPM [address] [address] 07/03/2024 9:45 AM EDT Clinical Support [address] [phone] 07/11/2024 2:30 PM EDT Office Visit [address] [phone] Sandy Hays PA [address] [place] [address] 08/07/2024 9:45 AM EDT Clinical Support [address] [phone] documented as of this encounter Visit Diagnoses Diagnosis Hammer toe of left foot- Primary Ulcer of toe of left foot, with fat layer exposed (CMS/HCC) Acquired hammer toe of right foot Primary osteoarthritis of both feet Dermatophytosis of nail Metatarsalgia of both feet Corns and callosities Bilateral femoral artery stenosis (CMS/HCC) Stricture of artery Pain in toe of left foot Pain in soft tissues of limb Tinea pedis of both feet Pain in toe of right foot Pain in soft tissues of limb documented in this encounter Care Teams Controls Project Engineer Relationship Specialty Start Date End Date Sangeetha Sage MD [address] [place] [address] PCP - General 08/27/04 documented as of this encounter
--- OUTSIDE RECORDS SUMMARY | 2024-05-19 05:10 | XMS_ITS | Encounter Summary ---
Author Organization [facility] Address [address] [place] [address] Care Team Providers Care Jury Consultant Name Role Phone Sangeetha Sage MD Primary Care Provider [phone] Reason for Visit * Reason Onset Date Comments faxed order 05/01/2024 [facility] ord er #[id number] Encounter Details Date Type Department Care Team (Late st Contact Info) Description 05/01/2024 Telephone Adult Medicine [address] [phone] Jackie Carvajal MA faxed order ([facility] order #[id number]) Social History Tobacco Use Types Packs/Day Years [...] on file documented as of this encounter Progress Notes * Lakesha Hassan MA - 05/02/2024 3:43 PM EDT SIGNED SCANNED AND E-FAXED * Jackie Carvajal MA - 05/01/2024 3:48 PM EDT Received orders from [facility] order #[id number]. Please sign and fax to [phone] documented in this encounter Plan of Treatment Upcoming Encounters Date Type Department Care Team (Late st Contact Info) Description 06/05/2024 10:00 AM EDT Clinical Support [address] [phone] 06/19/2024 10:00 AM EDT Office Visit Orthopedic Surgery - [place] [address] [phone] Adrian Ford, DPM [address] [address] 07/03/2024 9:45 AM EDT Clinical Support [address] [phone] 07/11/2024 2:30 PM EDT Office Visit [address] [phone] Sandy Hays PA [address] [place] [address] 08/07/2024 9:45 AM EDT Clinical Support [address] [phone] documented as of this encounter Visit Diagnoses Not on filedocumented in this encounter Care Teams Jury Consultant Relationship Specialty Start Date End Date Sangeetha Sage MD [address] [place] [address] PCP - General 08/27/04 documented as of this encounter
--- OUTSIDE RECORDS SUMMARY | 2024-05-19 05:10 | XMS_ITS | Clinical Summary ---
Author Organization [facility] Address [address] [place] [address] Care Team Providers Care Document Restorer Name Role Phone Sangeetha Sage MD Primary Care Provider [phone] Allergies Active Allergy Reactions Criticality Noted Date Comments Metformin Hcl 01/18/2007 Diarrhea Propoxyphene High 02/18/2005 Other reaction(s): Numbness, tingling or swelling of the lips, tongue or mouth Medications Medication Sig Dispensed Refills Start Date End Date Status aspirin 81 MG EC tablet Take 1 tablet (81 mg total) by mouth every night at bedtime. 0 07/08/2022 Active atenolol (TENORMIN) tablet 50 mg Take 1 tablet (50 mg total) by mouth every night at bedtime. 0 07/08/2022 Active atorvastatin (LIPITOR) tablet 20 mg 0 10/26/2022 Active Cholecalciferol 50 MCG (2000 UT) CAPS Take 1 capsule by mouth. 0 11/24/2021 Active cyanocobalamin (VITAMIN B12) 1000 MCG/ML injection Inject 1 mL (1,000 mcg total) into the muscle. 0 06/06/2022 Active Diclofenac Sodium 1 % GEL PLACE 2G TOPICALLY 3 TIMES A DAY 0 08/17/2022 Active hydrocortisone 2.5 % ointment 0 08/05/2022 Active levothyroxine (SYNTHROID) tablet 88 mcg Take 1 tablet (88 mcg total) by mouth. 0 07/08/2022 Active lisinopril (PRINIVIL,ZESTRIL) tablet 20 mg 0 10/26/2022 Active Watson-3 Fatty Acids (Watson-3 Fish Oil) 1000 MG CAPS Take 1 capsule by mouth daily. 0 07/08/2022 Active polyethylene glycol (GLYCOLAX) 17 GM/SCOOP powder Take 17 g by mouth. 0 09/01/2022 Active tamsulosin (FLOMAX) 0.4 MG CAPS 0 10/26/2022 Active Calcium Carb-Cholecalciferol (OYSCO 500 + D) 500-5 MG-MCG TABS Take 1 tablet by mouth. 0 09/29/2022 Active alendronate (FOSAMAX) tablet 70 mg 0 10/26/2022 Active oyster shell calcium (OS-LASHAWN) 500 MG tablet Take 1 tablet (500 mg total) by mouth every night at bedtime. 0 11/14/2022 Active clopidogrel (PLAVIX) 75 MG tablet 0 05/03/2023 Active loratadine (CLARITIN) 10 MG tablet Take 1 tablet (10 mg total) by mouth daily. 0 04/07/2023 Active Social History Tobacco Use Types Packs/Day Years Used Date Smoking Tobacco: Never Smokeless Tobacco: Never Tobacco Cessation:Counseling Given: Not Answered Alcohol Use Standard Drinks/Week Comments Never 0 (1 standard drink = 0.6 oz pur e alcohol) Sex and Gender Information Value Date Recorded Sex Assigned at Female 09/13/2022 3:10 PM EDT Gender Identity Not on file Sexual Orientation Not on file Job Start Date Occupation Industry Not on file Not on file Not on file Last Filed Vital Signs Vital Sign Reading Time Taken Comments Blood Pressure 127/82 05/23/2023 9:53 AM EDT Pulse 82 05/23/2023 9:53 AM EDT Temperature 36.7 ??C (98 ??F) 05/23/2023 9:53 AM EDT Respiratory Rate - - Oxygen Saturation 95% 05/23/2023 9:53 AM EDT Inhaled Oxygen Concentration - - Weight 53.9 kg (118 lb 12.8 oz) 05/23/2023 9:53 AM EDT Height 160 cm (5' 3 ) 05/23/2023 9:53 AM EDT Body Mass Index 21.04 05/23/2023 9:53 AM EDT Plan of Treatment Health Maintenance Due Date Last Done Comments COVID-19 Vaccine (#1) 1945 Depression Screening 1956 Preventative Health Evaluation 02/13/1962 DTap / Tdap / Td (1 - Tdap) 02/13/1963 Shingrix-Zoster Vaccine (1 of 2) 02/13/1994 Fall Risk Assessment 02/13/2009 Osteoporosis Screening (DEXA Scan) 02/13/2009 RSV Adult > 60+ Yrs or (1 - 1-dose 75+ series) 02/13/2019 Influenza Vaccine (#1) 2023 3, 11/23/2021, 03/15/2021, Additional history exists Pneumococcal Vaccine Completed 04/16/2014, 11/09/2009, 09/15/2004 Hepatitis B Vaccines Aged Out No long er eligible based on patient's age to complete this topic RSV Ped < 20 months Aged Out No longe r eligible based on patient's age to complete this topic Care Teams Document Restorer Relationship Specialty Start Date End Date Sangeetha Sage MD PCP - General Internal Medicine 09/13/22
--- OUTSIDE RECORDS SUMMARY | 2024-05-19 05:11 | XMS_ITS | Clinical Summary ---
Author Organization [address] Address [address] [place] [phone] Phone Care Team Providers Care Slab Off Mill Tender Name Role Phone Sangeetha Sage MD Primary Care Provider [phone] Allergies Active Allergy Reactions Criticality Noted Date Comments Metformin Hcl 01/18/2007 Diarrhea Propoxyphene Numbness High 02/18/2005 Other reaction(s): Numbness, tingling or swelling of the lips, tongue or mouth Medications calcium carbonate-terra min D (Oysco 500/D) 500 mg-5 mcg (200 unit) per tablet Take 1 tablet by mouth. 09/30/19 23 Active cholecalcifero l (VITAMIN D-3) 50 mcg (2,000 unit) capsule Take 1 capsule (2,000 Units total) by mouth. 11/25/19 22 Active diclofenac (VOLTAREN) 1 % topical gel PLACE 2G TOPICALLY 3 TIMES A DAY 08/18/19 23 Active hydrocortisone 2.5 % ointment 08/06/19 23 Active acetaminophen (TYLENOL) 500 mg tablet Take 2 tablets (1,000 mg total) by mouth. 06/14/19 24 Active omega-3 acid ethyl esters (LOVAZA) 1 gram capsule Take 1 Can by mouth. 05/07/19 24 Active senna (SENOKOT) 8.6 mg tablet Take 2 tablets (17.2 mg total) by mouth. 03/17/19 18 Active clotrimazole (LOTRIMIN) 1 % cream APPLY TOPICALLY TO THE AFFECTED AREA UNDER BREASTS TWICE A DAY NEEDED FOR RASH 30 g 4 12/25/19 24 Active polyethylene glycol (PEG) 17 gram/dose oral powder DISSOLVE 17 GRAMS IN 8OZ OF LIQUID AND DRINK DAILY 510 g 12/25/19 24 Active ammonium lactate (AmLactin) 12 % lotion Apply topically if needed for dry skin. 400 g 01/02/20 24 025 Active lisinopriL (PRINIVIL,ZEST RIL) 20 mg tablet TAKE 1 TABLET BY MOUTH AT BEDTIME 90 tablet 03/17/19 25 Active clopidogreL (PLAVIX) 75 mg tablet TAKE 1 TABLET BY MOUTH DAILY 90 tablet 03/17/19 25 Active levothyroxine (SYNTHROID, LEVOTHROID) 100 mcg tablet TAKE 1 TABLET BY MOUTH DAILY BEFORE BREAKFAST 28 tablet 04/12/19 25 Active Oyster Shell Calcium 500 500 mg calcium (1,250 mg) tablet TAKE 1 TABLET BY MOUTH EVERY NIGHT AT BEDTIME 28 tablet 04/12/19 25 Active aspirin 81 mg EC tablet TAKE 1 TABLET BY MOUTH EVERY NIGHT AT BEDTIME 28 tablet 04/12/19 25 Active alendronate (FOSAMAX) 70 mg tablet TAKE 1 TABLET BY MOUTH EVERY 7 DAYS 4 tablet 04/12/19 25 Active atenoloL (TENORMIN) 50 mg tablet TAKE 1 TABLET BY MOUTH EVERY NIGHT AT BEDTIME 28 tablet 04/12/19 25 Active atorvastatin (LIPITOR) 20 mg tablet TAKE 1 TABLET BY MOUTH EVERY MORNING 28 tablet 04/12/19 25 Active docusate sodium (COLACE) 100 mg capsule TAKE 1 CAPSULE BY MOUTH DAILY 28 capsule 04/12/19 25 Active omega 7-vqv-fow-fish oil 300 mg (120 mg- 180mg)-1,000 mg capsule TAKE 1 CAPSULE BY MOUTH EVERY MORNING 28 capsule 04/12/19 25 Active Allergy Relief, loratadine, 10 mg tablet TAKE 1 TABLET BY MOUTH DAILY 28 tablet 05/09/19 25 Active tamsulosin (FLOMAX) 0.4 mg 24 hr capsule TAKE 1 CAPSULE BY MOUTH DAILY TAKE 30 MINUTES AFTER SAME MEAL DAILY 28 capsule 05/09/19 25 Active cyanocobalamin (VITAMIN B-12) 1,000 mcg/mL injection Inject 1 mL (1,000 mcg total) into the shoulder, thigh, or buttocks. 06/07/19 23 025 Discontinued tamsulosin (FLOMAX) 0.4 mg 24 hr capsule TAKE 1 CAPSULE BY MOUTH DAILY TAKE 30 MINUTES AFTER SAME MEAL DAILY 28 capsule 4 12/25/19 24 025 Discontinued Allergy Relief, loratadine, 10 mg tablet TAKE 1 TABLET BY MOUTH DAILY 28 tablet 4 12/25/19 24 025 Discontinued Hospital, Clinic, or Other Facility Administered Medication Ordered Dose Route Frequency Start Date End Date Status cyanocobalamin (VITAMIN B-12) injection 1,000 mcgIndications:Vitamin B12 deficiency 1000 mcg IM Every 30 days 05/02/2024 04/27/2025 Active Active Problems Problem Noted Date Diagnosed Date DM (diabetes mellitus), type 2 with renal compli cations 02/21/2024 DNR (do not resuscitate) 03/17/2023 Overview (11/09/2023): MOLST form completed 03/17/2023 Cardiopulmonary resuscitation - do not resuscitate Ventilation for a patient in respiratory distress - do not intubate or ventilate Transfer to hospital - transfer to hospital Dialysis - no dialysis Artificial nutrition - no artificial nutrition Artificial hydration - use artificial hydration Stroke 08/30/2022 Overview (11/09/2023): 08/05 aborted pontine infarct, rx tPA Adnexal cyst 03/31/2022 Pelvic fracture 04/12/2017 Overview (11/09/2023): 03/02 left pubic ramus and acetabular fx secondary to a fall Vitamin B12 deficiency 03/12/2016 Rectocele 05/05/2010 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, residual left facial weakness Onychomycosis 04/14/2008 Irritable bowel syndrome 11/28/2005 Gastritis 09/21/2005 Overview (02/21/2024): Constipation 08/12/2005 Depression 08/12/2005 Esophageal reflux 08/12/2005 Hypertension 02/21/2005 Hypothyroidism 02/21/2005 Idiopathic osteoporosis 02/21/2005 Overview (11/09/2023): 09/23 T score spine -1.3 hip -1.7 FRAX score 9.5% 10 year fracture risk Moderate intellectual disabilities 02/21/2005 Pure hypercholesterolemia 02/21/2005 Resolved Problems Problem Noted Date Diagnosed Date Resolved Date Type 2 diabetes mellitus 08/12/200510/2024 Encounters Date Type Department Care Team Description 05/15/2024 3:00 PM EDT Office Visit Orthopedic Surgery - [facility] [address] [place] [phone] Adrian Ford DPM Hammer toe of left foot (Primary Dx); Ulcer of toe of left foot, with fat layer exposed (CMS/HCC); Acquired hammer toe of right foot; Primary osteoarthritis of both feet; Dermatophytosis of nail; Metatarsalgia of both feet; Corns and callosities; Bilateral femoral artery stenosis (CMS/HCC); Pain in toe of left foot; Tinea pedis of both feet; Pain in toe of right foot 05/02/2024 10:30 AM EDT Office Visit Adult [address] [phone] Sangeetha Sage MD Encephalopathy, unspecified type (Primary Dx); Type 2 diabetes mellitus with stage 3 chronic kidney disease, without long-term current use of insulin, unspecified whether stage 3a or 3b CKD (CMS/HCC); Vitamin B12 deficiency; Primary hypertension; Hypothyroidism due to acquired atrophy of thyroid 05/01/2024 Telephone Adult Medicine [address] [phone] Jackie Carvajal MA faxed order (Byron Waldron order #[id number]) 04/26/2024 Telephone Adult Medicine [address] [phone] Ebony Camarena MA VNA 04/10/2024 2:15 PM EST Office Visit Adult Medicine [address] [phone] Sangeetha Sage MD Type 2 diabetes mellitus with stage 3 chronic kidney disease, without long-term current use of insulin, unspecified whether stage 3a or 3b CKD ([facility]/HCC) (Primary Dx); Primary hypertension; Hypothyroidism due to acquired atrophy of thyroid; Pure hypercholesterolemia 02/22/2024 10:45 AM EST Office Visit Adult Medicine [address] [phone] Sangeetha Sage MD Candidal dermatitis (Primary Dx); Type 2 diabetes mellitus with stage 3 chronic kidney disease, without long-term current use of insulin, unspecified whether stage 3a or 3b CKD (CMS/HCC); Pure hypercholesterolemia; Primary hypertension; Hypothyroidism due to acquired atrophy of thyroid 02/21/2024 Nurse Triage Adult [address] [phone] Sangeetha Sage MD Rash from Last 3 Months Immunizations Name Administration Dates Next Due Influenza Quadravalent, MDCK , 0.5ml, with preservative (Flucelvax) 6mo and older 02/15/2017 Influenza trivalent, 0.5mL ( Fluzone High-dose) 65yo and older 11/14/2022,11/23/2021,03/15/2021,11/17,12/27/2018,12/05/2017 Influenza trivalent, with pr eservative (Fluzone; Afluria) 6mo and older 12/17/2015,11/13/2014,12/31/2013,10/30,11/01/2010,11/09/2009,12/04/2006 ,01/22/2006,12/08/2004 Pneumococcal conjugate 13 va lent (Prevnar 13, PCV13) 2mo and older 04/16/2014 Pneumococcal polysaccharide 23 valent (Pneumovax 23) 2yo and older 11/09/2009,09/15/2004 Td Tetanus diptheria (Tdvax) 7yo and older 12/17/2015,09/15/2004 Surgical History Surgery Date Site/Laterality Comments VENTRAL HERNIA REPAIR ESOPHAGOGASTRODUODENOSCOPY 09/2005 Gastritis Bx reactive gastropathy. SB bx normla COLONOSCOPY 12/18 repeat 2014, up to cecum, good preparation, hemorrhoids CATARACT EXTRACTION Bilateral OTHER SURGICAL HISTORY 08/2018 partial anal mucosectomy, dermal flap anoplasty, proctosigmoidoscopy for anal prolapse/rectal bleeding COLONOSCOPY 01/13/2015 tics Medical History Medical History Date Comments Moderate intellectual disabilities 02/21/2005 Pure hypercholesterolemia 02/21/2005 Idiopathic osteoporosis 02/21/2005 Onychomycosis 04/14/2008 Edyd's palsy 04/14/2008 Esophageal reflux 08/12/2005 Essential hypertension, benign 02/21/2005 Proteinuria 04/25/2010 SBO (small bowel obstruction) ([facility]) 1 Stroke ([facility]) 05/26/2010 Vitamin B12 deficiency 03/12/2016 Pelvic fracture ([facility]) 04/12/201703/02 l eft pubic ramus and acetabular fx secondary to a fall Adnexal cyst 03/31/2022 Hip fracture ([facility]) 11/07/202310/06 left hip femoral neck fx, hemiarthroplasty Constipation 08/12/2005 Depression 08/12/2005 DNR (do not resuscitate) 03/17/2023 MOLST f orm completed 03/17/2023 Cardiopulmonary resuscitation - do not resuscitate Ventilation for a patient in respiratory distress - do not intubate or ventilate Transfer to hospital - transfer to hospital Dialysis - no dialysis Artificial nutrition - no artificial nutrition Artificial hydration - use artificial hydration Hypothyroidism 02/21/2005 Irritable bowel syndrome 11/28/2005 DM (diabetes mellitus), type 2 with renal complications ([facility]) 02/21/2024 Family History Medical History Relation Name Comments Other: not known Other parents Relation Name Status Comments Other Social History Tobacco Use Types Packs/Day Years Used Date Smoking Tobacco: Former Cigarettes Q uit: 10/24/2015 Smokeless Tobacco: Former Quit: 08/27/2018 Tobacco Cessation:Counseling Given: Not Answered Alcohol Use Standard Drinks/Week Comments No 0 (1 standard drink = 0.6 oz pur e alcohol) Comments Unknown Sex and Gender Information Value Date Recorded Sex Assigned at Not on file Legal Sex Female 12:13 AM EST Gender Identity Not on file Sexual Orientation Not on file Obstetrics History Last Filed Vital Signs Vital Sign Reading Time Taken Comments Blood Pressure 176/80 05/02/2024 10:17 AM EDT Pulse 76 05/02/2024 10:17 AM EDT Temperature 36.2 ??C (97.2 ??F) 05/02/2024 10:17 AM E DT Respiratory Rate 14 05/02/2024 10:17 AM EDT Oxygen Saturation 97% 05/02/2024 10:17 AM EDT Inhaled Oxygen Concentration - - Weight 53.1 kg (117 lb) 05/15/2024 3:00 PM EDT Height 160 cm (5' 2.99 ) 05/15/2024 3:00 PM EDT Body Mass Index 20.73 05/15/2024 3:00 PM EDT Plan of Treatment Upcoming Encounters Date Type Department Care Team (Late st Contact Info) Description 06/05/2024 10:00 AM EDT Clinical Support [address] [phone] 06/19/2024 10:00 AM EDT Office Visit Orthopedic Surgery - [facility] [address] [phone] Adrian Ford, DPM [address] [phone] 07/03/2024 9:45 AM EDT Clinical Support [address] [phone] 07/11/2024 2:30 PM EDT Office Visit [address] [phone] Sandy Hays PA [address] [place] [address] 08/07/2024 9:45 AM EDT Clinical Support [address] [phone] Health Maintenance Due Date Last Done Comments COVID-19 Vaccine (#1) 02/13/1950 Diabetes: Annual Retina Eye Exam 02/13/1954 Zoster Vaccines (1 of 2) 02/13/1994 RSV Immunization Adult Patients (1 - 1-dose 75+ series) 02/13/2019 Medicare Annual Wellness Visit 01/22/2022 Osteoporosis Screening (Bone Density Screening) 01/22/2022 Social Influencers of Health Screening 01/22/2022 Falls Risk Assessment 04/07/2024 04/07/2023 Diabetes: Blood Sugar Control Test (HGBA1C) 06/26/2024 12/28/2023, 07/19/2023, 07/19/2023 Depression Screening 07/18/2024 07/19/2023 Diabetes: Annual Urine Albumin-Creatinine Ratio (uACR) 07/18/2024 07/19/2023 Influenza Vaccine (Season Ended) 2024 11/14/2022, 11/23/2021, 03/15/2021, Additional history exists Diabetes: Annual GFR (Glomerular Filtration Rate) 12/27/2024 12/28/2023, 07/19/2023, 07/19/2023 Hypertension/CHF/CAD Annual BMP Blood Test 12/27/2024 12/28/2023, 07/19/2023, 07/19/2023 Diabetes: Annual Foot Exam 01/01/2025 01/02/2024 DTaP,Tdap,and Td Vaccines (3 - Td or Tdap) 12/16/2025 12/17/2015, 09/15/2004 Cholesterol Screening (Lipid Panel) 07/18/2028 07/19/2023, 07/19/2023 Pneumococcal Vaccine: 50+ Years Completed 04/16/2014, 11/09/2009, 09/15/2004 HIB Vaccines Aged Out No longer eligi ble based on patient's age to complete this topic HPV Vaccines Aged Out No longer eligi ble based on patient's age to complete this topic Hepatitis A Vaccines Aged Out No long er eligible based on patient's age to complete this topic Hepatitis B Vaccines Aged Out No long er eligible based on patient's age to complete this topic IPV Vaccines Aged Out No longer eligi ble based on patient's age to complete this topic MMR Vaccines Aged Out No longer eligi ble based on patient's age to complete this topic Meningococcal ACWY Vaccine Aged Out N o longer eligible based on patient's age to complete this topic Meningococcal B Vacine Aged Out No lo nger eligible based on patient's age to complete this topic RSV Immunization Patients Under 20 months Aged Out No longer eligible based on patient's age to complete this topic Varicella Vaccines Aged Out No longer eligible based on patient's age to complete this topic Procedures Procedure Name Priority Date/Time Associated Diagnosis Comments COMPREHENSIVE METABOLIC PANEL Routine 12/28/2023 9:08 AM EST Type 2 diabetes mellitus with diabetic cataract, without long-term current use of insulin ([facility]) HEMOGLOBIN A1C Routine 12/28/2023 9:08 AM EST Type 2 diabetes mellitus with diabetic cataract, without long-term current use of insulin ([facility]) DEPRESSION SCREENING Routine 07/19/2023 URINE ALBUMIN CREATININE RATIO Routine 07/19/2023 LIPID PANEL Routine 07/19/2023 FALLS RISK ASSESSMENT Routine 04/07/2023 from Last 3 Months or Most Recently Relevant to Health Maintenance Results * Hemoglobin A1c (12/28/2023 9:08 AM EST) Pathologist [facility] Hemoglobin A1C 5.6 % 12/28/2023 2:19 PM EST [facility] Mean Bld Glu Estim. 114 mg/dL 12/28/2023 2:19 PM EST [facility] Blood Venous blood specimen / Unknown Venipuncture / Unknown 12/28/2023 9:08 AM EST 12/28/2023 9:08 AM EST us Sarah HUMPHRIES LAB BLOOD ORDERABLES Final Resul t [facility] [address] [place] [address], [place] [phone] * (ABNORMAL) Comprehensive metabolic panel (12/28/2023 9:08 AM EST) Sodium 138 133 - 145 mmol/L LAB CHEMISTRY METHOD 12/28/2023 12:52 PM [facility] Potassium 3.6 3.5 - 5.5 mmol/L LAB CHEMISTRY METHOD 12/28/2023 12:52 PM [facility] Chloride 105 96 - 110 mmol/L LAB CHEMISTRY METHOD 12/28/2023 12:52 PM [facility] CO2 26 21 - 32 mmol/L LAB CHEMISTRY METHOD 12/28/2023 12:52 PM [facility] Anion Gap 7 3 - 11 LAB CHEMISTRY METHOD 12/28/2023 12:52 PM [facility] Glucose 131(H) 70 - 100 mg/dL LAB CHEMISTRY METHOD 12/28/2023 12:52 PM [facility] BUN 9 5 - 25 mg/dL LAB CHEMISTRY METHOD 12/28/2023 12:52 PM [facility] Creatinine 0.51 0.50 - 1.10 mg/dL LAB CHEMISTRY METHOD 12/28/2023 12:52 PM [facility] eGFR 95 >=60 mL/min/1. 73m2 LAB CHEMISTRY METHOD 12/28/2023 12:52 PM [facility] Comment:Calculation based on the??Chronic Kidney Disease Epidemiology Collaboration (CKD-EPI) equation refit??without adjustment for race. BUN/Creatinine Ratio 17.6 LAB CHEMISTRY METHOD 12/28/2023 12:52 PM [facility] Calcium 9.2 8.5 - 10.5 mg/dL LAB CHEMISTRY METHOD 12/28/2023 12:52 PM [facility] AST (SGOT) 19 10 - 42 unit/L LAB CHEMISTRY METHOD 12/28/2023 12:52 PM [facility] ALT (SGPT) 14 10 - 60 unit/L LAB CHEMISTRY METHOD 12/28/2023 12:52 PM [facility] Alkaline Phosphatase 107 42 - 121 unit/L LAB CHEMISTRY METHOD 12/28/2023 12:52 PM EST [facility] Total Protein 6.8 6.0 - 8.0 g/dL LAB CHEMISTRY METHOD 12/28/2023 12:52 PM EST [facility] Albumin 4.0 3.2 - 5.0 g/dL LAB CHEMISTRY METHOD 12/28/2023 12:52 PM EST [facility] Total Bilirubin 0.7 0.0 - 1.4 mg/dL LAB CHEMISTRY METHOD 12/28/2023 12:52 PM EST [facility] Blood Venous blood specimen / Unknown Venipuncture / Unknown 12/28/2023 9:08 AM EST 12/28/2023 9:08 AM EST Result [facility] Sarah HUMPHRIES LAB BLOOD ORDERABLES Final Resul t [facility] [address] [place] [address], * Urine Albumin Creatinine Ratio (07/19/2023) Pathologist [facility] Urine Albumin Creatinine Ratio abstracted Result [facility] Provider HEALTH MAINTENANCE Final Result * Depression Screening (07/19/2023) Pathologist [facility] Depression Screening abstracted [facility] Provider HEALTH MAINTENANCE Final Result * Lipid panel (07/19/2023) Pathologist [facility] LDL/HDL Ratio 3 0 - 4 Triglycerides 123 0 - 150 mg/dL Cholesterol 159 0 - 200 mg/dL HDL 57 >=40 mg/dL LDL Cholesterol 78 0 - 100 mg/dL Blood Venous blood specimen / Unknown Result [facility] Historical Provider LAB BLOOD ORDERABLES Dulce l Result * Falls Risk Assessment (04/07/2023) Pathologist [facility] Falls Risk Assessment abstracted Historical Provider HEALTH MAINTENANCE Final Result from Last 3 Months or Most Recently Relevant to Health Maintenance Insurance [place]IC[place] Advance Directives * No CPR/Do Not Intubate (Latest Code Status on File) Date Activated Date Inactivated Comments 05/02/2024 10:29 AM This code sta tus was ascertained in the following way: Code status discussion: discussion with patient To update the patient's code status, place a code status order. Do not modify or discontinue any currently active code status orders. Care Teams Slab Off Mill Tender Relationship Specialty Start Date End Date Sangeetha Sage MD [address] [place] [id number] [facility] - General 08/27/04
--- OUTSIDE RECORDS SUMMARY | 2024-05-19 05:11 | XMS_ITS ---
Author Organization [address] Address [address] [place] [phone] Phone Care Team Providers Care Accounts Payable Manager Name Role Phone Sangeetha Sage MD Primary Care Provider [phone] Transitional Care Management Status:Ongoing (Active) Start date:04/25/2024 Enrollment date:04/25/2024 Enrollment reason:Identified using hospital discharge data Case Team Name Relationship Phone Ruth Sales LPN Care Manager(Responsible Staff) Continued Care and Services Coordination
--- OUTSIDE RECORDS SUMMARY | 2024-05-19 05:11 | XMS_ITS | Clinical Summary ---
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 Active 02-13 00:00: 00 TYPE 2 DIABETES MELLITUS WITHOUT COMPLICATION S Active 02-13 00:00: 00 HYPOTHYROIDI SM, UNSPECIFIED Active 02-13 00:00: 00 ANXIETY DISORDER, UNSPECIFIED Active 02-13 00:00: 00 MAJOR DEPRESSIVE DISORDER, SINGLE EPISODE, UNSPECIFIED Active 02-13 00:00: 00 ESSENTIAL (PRIMARY) HYPERTENSION Active 02-13 00:00: 00 ANEMIA, UNSPECIFIED Active 02-13 00:00: 00 NONRHEUMATIC AORTIC (VALVE) STENOSIS Active 02-13 00:00: 00 UNILATERAL POST-TRAUMAT IC OSTEOARTHRIT IS, RIGHT KNEE Active 02-13 00:00: 00 AGE-RELATED OSTEOPOROSIS W/O CURRENT PATHOLOGICAL FRACTURE Active 02-13 00:00: 00 DIAPHRAGMATI C HERNIA WITHOUT OBSTRUCTION OR GANGRENE Active 02-13 00:00: 00 MILD INTELLECTUAL DISABILITIES Active 02-13 00:00: 00 ENCEPHALOPAT HY, UNSPECIFIED Active 02-13 00:00: 00 ATHSCL HEART DISEASE OF [place] CORONARY ARTERY W/O ANG PCTRS Active 02-13 00:00: 00 OTHER CONSTIPATION Active 02-13 00:00: 00 THAI MASSEUR (CURRENT) USE OF ASPIRIN Active 02-13 00:00: 00 SENIOR CARE (CURRENT) USE OF ANTITHROMBOT ICS/ANTIPLAT ELETS Active 02-13 00:00: 00 PERSONAL HISTORY OF COVID-19 Active 02-13 00:00: 00 PERSONAL HISTORY OF NICOTINE DEPENDENCE Active 02-13 00:00: 00 PRESENCE OF LEFT ARTIFICIAL HIP JOINT Active 02-13 00:00: 00 Allergies, Adverse Reactions, Alerts Allergy Name Allergy Type Status Severity Reaction(s) Onset Date Inactive Date Treating Clinician Comments ACTIVASE/AL TEPLASE Propensity to adverse reactions Active 04-27 10:11: 54 METFORMIN Propensity to adverse reactions Active 04-27 10:12: 46 Medications Ordered Medication Name Filled Medication Name Start Date Stop Date Current Medication? Ordering Clinician Indication Dosage Frequency Signature (SIG) Comments Components clopidogrel 75 mg tablet 08-09 00:00: 00 02-16 23:59 :00 No [id number] 1 tablet DAILY 1 tablet DAILY (route: oral) Med Classific ation: Hematolog ical Agents hydrocortis one 2.5 % topical ointment 08-05 00:00: 00 02-16 23:59 :00 No [id number] Per instruc tions DIRECTED Per instructio ns DIRECTED (route: topical) Med Classific ation: Dermatolo gical alendronate 70 mg tablet 07-29 00:00: 00 02-16 23:59 :00 No [id number] 1 tablet WEEKLY 1 tablet WEEKLY (route: oral) Med Classific ation: Endocrine atenolol 50 mg tablet 07-29 00:00: 00 02-16 23:59 :00 No [id number] 1 tablet DAILY 1 tablet DAILY (route: oral) Med Classific ation: Cardiovas cular Therapy Agents atorvastati n 20 mg tablet 07-29 00:00: 00 02-16 23:59 :00 No [id number] 1 tablet DAILY 1 tablet DAILY (route: oral) Med Classific ation: Cardiovas cular Therapy Agents levothyroxi ne 88 mcg tablet 07-29 00:00: 00 02-16 23:59 :00 No [id number] 1 tablet DAILY 1 tablet DAILY (route: oral) Med Classific ation: Endocrine lisinopril 20 mg tablet 07-29 00:00: 00 02-16 23:59 :00 No [id number] 1 tablet DAILY 1 tablet DAILY (route: oral) Med Classific ation: Cardiovas cular Therapy Agents ibuprofen 800 mg tablet 07-17 00:00: 00 02-16 23:59 :00 No [id number] Per instruc tions EVERY 8 HOURS NEEDED Per instructio ns EVERY 8 HOURS NEEDED (route: oral) Med Classific ation: Analgesic , Anti-infl ammatory or Antipyret ic ascorbic acid (vitamin C) 500 mg tablet 08-22 00:00: 00 02-16 23:59 :00 No [id number] 1 tablet DAILY 1 tablet DAILY (route: oral) Med Classific ation: Electroly te Balance-N utritiona l Products aspirin 81 mg tablet,christelle yed release 08-22 00:00: 00 02-16 23:59 :00 No [id number] 1 tablet DAILY 1 tablet DAILY (route: oral) Med Classific ation: Hematolog ical Agents cholecalcif lat[place] (vitamin D3) 50 mcg (2,000 unit) capsule 08-22 00:00: 00 02-16 23:59 :00 No [id number] 1 capsule DAILY 1 capsule DAILY (route: oral) Med Classific ation: Electroly te Balance-N utritiona l Products clotrimazol e 1 % topical cream 08-22 00:00: 00 02-16 23:59 :00 No [id number] Per instruc tions 2 TIMES DAILY Per instructio ns 2 TIMES DAILY (route: topical) Med Classific ation: Dermatolo gical diclofenac 1 % topical gel 08-22 00:00: 00 02-16 23:59 :00 No [id number] Per instruc tions DIRECTED Per instructio ns DIRECTED (route: topical) Med Classific ation: Dermatolo gical ferrous sulfate 324 mg (65 mg iron) tablet,christelle annd release 08-22 00:00: 00 02-16 23:59 :00 No [id number] 1 tablet 3 TIMES DAILY 1 tablet 3 TIMES DAILY (route: oral) Med Classific ation: Electroly te Balance-N utritiona l Products omega 3-dha-epa-f edna oil 1,000 mg (120 mg-180 mg) capsule 08-22 00:00: 00 02-16 23:59 :00 No [id number] 1 capsule DAILY 1 capsule DAILY (route: oral) Med Classific ation: Cardiovas cular Therapy Agents oxycodone 5 mg tablet 08-22 00:00: 00 02-16 23:59 :00 No [id number] Per instruc tions EVERY 8 HOURS Per instructio ns EVERY 8 HOURS (route: oral) Med Classific ation: Analgesic , Anti-infl ammatory or Antipyret ic tamsulosin 0.4 mg capsule 08-22 00:00: 00 02-16 23:59 :00 No [id number] 1 capsule DAILY 1 capsule DAILY (route: oral) Med Classific ation: Genitouri nary Therapy prednisone 5 mg tablet 08-22 00:00: 00 08-26 23:59 :00 No [id number] 1 tablet DAILY 1 tablet DAILY (route: oral) Med Classific ation: Endocrine Benadryl Allergy 25 mg tablet 10-19 00:00: 00 02-16 23:59 :00 No [id number] 1 tablet EVERY 6 HOURS 1 tablet EVERY 6 HOURS (route: oral) Med Classific ation: Respirato ry Therapy Agents nystatin 100,000 unit/gram topical cream 10-19 00:00: 00 02-16 23:59 :00 No [id number] Per instruc tions 2 TIMES DAILY Per instructio ns 2 TIMES DAILY (route: topical) Med Classific ation: Dermatolo gical prednisone 50 mg tablet 10-19 00:00: 00 02-16 23:59 :00 No [id number] 1 tablet DAILY 1 tablet DAILY (route: oral) Med Classific ation: Endocrine Benadryl 25 mg capsule 10-21 00:00: 00 02-16 23:59 :00 No [id number] 1 capsule EVERY 6 HOURS 1 capsule EVERY 6 HOURS (route: oral) Med Classific ation: Respirato ry Therapy Agents nystatin 100,000 unit/gram topical powder 10-21 00:00: 00 02-16 23:59 :00 No [id number] 15 gram 2 TIMES DAILY 15 gram 2 TIMES DAILY (route: topical) Med Classific ation: Dermatolo gical prednisone 50 mg tablet 10-21 00:00: 00 02-16 23:59 :00 No [id number] 1 tablet DAILY 1 tablet DAILY (route: oral) Med Classific ation: Endocrine alendronate 70 mg tablet 02-14 00:00: 00 09-05 23:59 :00 No [id number] Per instruc tions DIRECTED Per instructio ns DIRECTED (route: oral) Med Classific ation: Endocrine atenolol 50 mg tablet 02-14 00:00: 00 09-05 23:59 :00 No [id number] 1 tablet DAILY 1 tablet DAILY (route: oral) Med Classific ation: Cardiovas cular Therapy Agents atorvastati n 20 mg tablet 02-14 00:00: 00 09-05 23:59 :00 No [id number] 1 tablet BEDTIME 1 tablet BEDTIME (route: oral) Med Classific ation: Cardiovas cular Therapy Agents clopidogrel 75 mg tablet 02-14 00:00: 00 09-05 23:59 :00 No [id number] 1 tablet DAILY 1 tablet DAILY (route: oral) Med Classific ation: Hematolog ical Agents levothyroxi ne 88 mcg tablet 02-14 00:00: 00 09-05 23:59 :00 No [id number] 1 tablet DAILY 1 tablet DAILY (route: oral) Med Classific ation: Endocrine lisinopril 20 mg tablet 1- 00:00: 00 09-05 23:59 :00 No [id number] 1 tablet DAILY 1 tablet DAILY (route: oral) Med Classific ation: Cardiovas cular Therapy Agents tamsulosin 0.4 mg capsule 1- 00:00: 00 09-05 23:59 :00 No [id number] 1 capsule BEDTIME 1 capsule BEDTIME (route: oral) Med Classific ation: Genitouri nary Therapy hydrocortis one 2.5 % topical ointment 3- 00:00: 00 09-05 23:59 :00 No [id number] Per instruc tions 2 TIMES DAILY Per instructio ns 2 TIMES DAILY (route: topical) Med Classific ation: Dermatolo gical loratadine 10 mg tablet 3- 00:00: 00 09-05 23:59 :00 No [id number] 1 tablet DAILY 1 tablet DAILY (route: oral) Med Classific ation: Respirato ry Therapy Agents lisinopril 20 mg tablet - 00:00: 00 02-11 23:59 :00 No [id number] 1 tablet BEDTIME 1 tablet BEDTIME (route: oral) Med Classific ation: Cardiovas cular Therapy Agents clopidogrel 75 mg tablet - 00:00: 00 02-11 23:59 :00 No [id number] 1 tablet DAILY 1 tablet DAILY (route: oral) Med Classific ation: Hematolog ical Agents alendronate 70 mg tablet 08-22 00:00: 00 02-11 23:59 :00 No [id number] 1 tablet WEEKLY 1 tablet WEEKLY (route: oral) Med Classific ation: Endocrine atenolol 50 mg tablet 08-22 00:00: 00 02-11 23:59 :00 No [id number] 1 tablet BEDTIME 1 tablet BEDTIME (route: oral) Med Classific ation: Cardiovas cular Therapy Agents atorvastati n 20 mg tablet 08-22 00:00: 00 02-11 23:59 :00 No [id number] 1 tablet DAILY 1 tablet DAILY (route: oral) Med Classific ation: Cardiovas cular Therapy Agents clotrimazol e 1 % topical cream 08-22 00:00: 00 02-11 23:59 :00 No [id number] Per instruc tions 2 TIMES DAILY Per instructio ns 2 TIMES DAILY (route: topical) Med Classific ation: Dermatolo gical levothyroxi ne 88 mcg tablet 08-22 00:00: 00 02-11 23:59 :00 No [id number] 1 tablet DAILY 1 tablet DAILY (route: oral) Med Classific ation: Endocrine tamsulosin 0.4 mg capsule 08-22 00:00: 00 02-11 23:59 :00 No [id number] 1 capsule DAILY 1 capsule DAILY (route: oral) Med Classific ation: Genitouri nary Therapy Colace 100 mg capsule 11-02 00:00: 00 02-11 23:59 :00 No [id number] 1 capsule DAILY 1 capsule DAILY (route: oral) Med Classific ation: Gastroint estinal Therapy Agents Dialyvite Vitamin D3 Max 1,250 mcg (50,000 unit) tablet 11-02 00:00: 00 12-02 23:59 :00 No [id number] 1 tablet DAILY 1 tablet DAILY (route: oral) Med Classific ation: Electroly te Balance-N utritiona l Products potassium chloride ER 20 mEq tablet,exte nded release 11-02 00:00: 00 02-11 23:59 :00 No [id number] 1 tablet 2 TIMES A WEEK 1 tablet 2 TIMES A WEEK (route: oral) Med Classific ation: Electroly te Balance-N utritiona l Products alendronate 70 mg tablet 04-27 00:00: 00 Yes [id number] 1 tablet WEEKLY 1 tablet WEEKLY (route: oral) Med Classific ation: Endocrine aspirin 81 mg tablet,christelle yed release 04-27 00:00: 00 Yes [id number] 1 tablet DAILY 1 tablet DAILY (route: oral) Med Classific ation: Hematolog ical Agents atenolol 50 mg tablet 04-27 00:00: 00 Yes [id number] 1 tablet BEDTIME 1 tablet BEDTIME (route: oral) Med Classific ation: Cardiovas cular Therapy Agents atorvastati n 20 mg tablet 04-27 00:00: 00 Yes [id number] 1 tablet DAILY 1 tablet DAILY (route: oral) Med Classific ation: Cardiovas cular Therapy Agents clotrimazol e 1 % topical cream 04-27 00:00: 00 Yes [id number] Per instruc tions 2 TIMES DAILY Per instructio ns 2 TIMES DAILY (route: topical) Med Classific ation: Dermatolo gical Colace 100 mg capsule 04-27 00:00: 00 Yes [id number] 1 capsule DAILY 1 capsule DAILY (route: oral) Med Classific ation: Gastroint estinal Therapy Agents levothyroxi ne 100 mcg tablet 04-27 00:00: 00 Yes [id number] 1 tablet DAILY 1 tablet DAILY (route: oral) Med Classific ation: Endocrine lisinopril 20 mg tablet 04-27 00:00: 00 Yes [id number] 1 tablet DAILY 1 tablet DAILY (route: oral) Med Classific ation: Cardiovas cular Therapy Agents loratadine 10 mg tablet 04-27 00:00: 00 Yes [id number] 1 tablet DAILY 1 tablet DAILY (route: oral) Med Classific ation: Respirato ry Therapy Agents [place]-3 Fish Oil 300 mg-1,000 mg capsule 04-27 00:00: 00 Yes [id number] 1 capsule DAILY 1 capsule DAILY (route: oral) Med Classific ation: Electroly te Balance-N utritiona l Products Plavix 75 mg tablet 04-27 00:00: 00 Yes [id number] 1 tablet DAILY 1 tablet DAILY (route: oral) Med Classific ation: Hematolog ical Agents polyethylen e glycol 3350 17 gram/dose oral powder 04-27 00:00: 00 Yes [id number] 17 gram DAILY 17 gram DAILY (route: oral) Med Classific ation: Gastroint estinal Therapy Agents tamsulosin 0.4 mg capsule 04-27 00:00: 00 Yes [id number] 1 capsule DAILY 1 capsule DAILY (route: oral) Med Classific ation: Genitouri nary Therapy Vitamin D3 25 mcg (1,000 unit) tablet 04-27 00:00: 00 Yes [id number] 1 tablet DAILY 1 tablet DAILY (route: oral) Med Classific ation: Electroly te Balance-N utritiona l Products Vital Signs Vital Name Observation Time Observation Value Commen ts Temperature 2024-05-13 15:16:00.000 97 [degF] Temperature 2024-05-07 09:54:00.000 97.7 [degF] Temperature 2024-05-01 09:48:00.000 97.5 [degF] Temperature 2024-04-27 10:33:00.000 97 [degF] BMI (%) 2024-04-27 10:32:00.000 22 kg/m2 Height 2024-04-27 10:32:00.000 61 [in_us] Pulse 2024-05-13 15:16:00.000 70 /min Pulse 2024-05-13 08:41:00.000 72 /min Pulse 2024-05-07 09:54:00.000 76 /min Pulse 2024-05-06 09:25:00.000 70 /min Pulse 2024-05-01 09:48:00.000 68 /min Pulse 2024-04-30 11:30:00.000 78 /min Pulse 2024-04-27 10:32:00.000 64 /min O2 Saturation (%) 2024-05-13 15:16:00.000 97 % O2 Saturation (%) 2024-05-13 08:41:00.000 96 % O2 Saturation (%) 2024-05-07 09:54:00.000 96 % O2 Saturation (%) 2024-05-06 09:25:00.000 95 % O2 Saturation (%) 2024-05-01 09:48:00.000 99 % O2 Saturation (%) 2024-04-30 11:30:00.000 95 % O2 Saturation (%) 2024-04-27 10:32:00.000 95 % Respirations 2024-05-13 15:16:00.000 18 /min Respirations 2024-05-07 09:54:00.000 18 /min Respirations 2024-05-01 09:48:00.000 18 /min Respirations 2024-04-27 10:32:00.000 20 /min Weight (lbs) 2024-04-27 10:32:00.000 119 [lb_av] Systolic Blood Pressure 2024-05-13 15:16:00.000 134 mm [Hg] Systolic Blood Pressure 2024-05-13 08:41:00.000 146 mm [Hg] Systolic Blood Pressure 2024-05-07 09:54:00.000 142 mm [Hg] Systolic Blood Pressure 2024-05-06 09:25:00.000 148 mm [Hg] Systolic Blood Pressure 2024-05-01 09:48:00.000 126 mm [Hg] Systolic Blood Pressure 2024-04-30 11:30:00.000 130 mm [Hg] Systolic Blood Pressure 2024-04-27 10:32:00.000 118 mm [Hg] Diastolic Blood Pressure 2024-05-13 15:16:00.000 70 mm [Hg] Diastolic Blood Pressure 2024-05-13 08:41:00.000 78 mm [Hg] Diastolic Blood Pressure 2024-05-07 09:54:00.000 78 mm [Hg] Diastolic Blood Pressure 2024-05-06 09:25:00.000 80 mm [Hg] Diastolic Blood Pressure 2024-05-01 09:48:00.000 70 mm [Hg] Diastolic Blood Pressure 2024-04-30 11:30:00.000 78 mm [Hg] Diastolic Blood Pressure 2024-04-27 10:32:00.000 70 mm [Hg] Plan of Treatment Planned Activity Planned Date Details Comments Future Scheduled Test SKILLED NU RSE TO EVALUATE PATIENT, IDENTIFY PRIMARY AND CO-MORBID CONDITIONS CODED PER CODING GUIDELINES, AND DEVELOP PATIENT SPECIFIC PLAN OF CARE THAT INCLUDES PATIENT GOAL FOR HOME HEALTH. [code = SKILLED NURSE TO EVALUATE PATIENT, IDENTIFY PRIMARY AND CO-MORBID CONDITIONS CODED PER CODING GUIDELINES, AND DEVELOP PATIENT SPECIFIC PLAN OF CARE THAT INCLUDES PATIENT GOAL FOR HOME HEALTH.] Future Scheduled Test SKILLED NU RSE TO REVIEW PATIENT MEDICATIONS. INSTRUCT PATIENT/CAREGIVER ON MONITORING OF EFFECTIVENESS, ADVERSE DRUG REACTIONS, SIDE EFFECTS OF ALL MEDICATIONS (PRESCRIPTION/-OTC), AND HOW AND WHEN TO REPORT PROBLEMS. [code = SKILLED NURSE TO REVIEW PATIENT MEDICATIONS. INSTRUCT PATIENT/CAREGIVER ON MONITORING OF EFFECTIVENESS, ADVERSE DRUG REACTIONS, SIDE EFFECTS OF ALL MEDICATIONS (PRESCRIPTION/-OTC), AND HOW AND WHEN TO REPORT PROBLEMS.] Future Scheduled Test SKILLED NU RSE TO ASSESS ANXIETY AND PROVIDE ASSISTANCE TO PATIENT FOR UNDERSTANDING AND MANAGEMENT OF FEELINGS. [code = SKILLED NURSE TO ASSESS ANXIETY AND PROVIDE ASSISTANCE TO PATIENT FOR UNDERSTANDING AND MANAGEMENT OF FEELINGS.] Future Scheduled Test SKILLED NU RSE FOR O/A, TEACHING RELATED TO GERD FOR EARLY IDENTIFICATION OF EXACERBATION OF DISEASE PROCESS. [code = SKILLED NURSE FOR O/A, TEACHING RELATED TO GERD FOR EARLY IDENTIFICATION OF EXACERBATION OF DISEASE PROCESS.] Future Scheduled Test SKILLED NU RSE FOR O/A, TEACHING AND MANAGEMENT OF URINARY RETENTION FOR EARLY IDENTIFICATION OF EXACERBATION OF DISEASE PROCESS [code = SKILLED NURSE FOR O/A, TEACHING AND MANAGEMENT OF URINARY RETENTION FOR EARLY IDENTIFICATION OF EXACERBATION OF DISEASE PROCESS] Future Scheduled Test OCCUPATION AL THERAPIST TO EVALUATE PATIENT FOR DME NEEDED FOR ADLS DUE TO IMPAIRED ARM MOBILITY [code = OCCUPATIONAL THERAPIST TO EVALUATE PATIENT FOR DME NEEDED FOR ADLS DUE TO IMPAIRED ARM MOBILITY] Future Scheduled Test SKILLED NU RSE TO ASSESS PATIENTS PSYCHOSOCIAL STATUS TO IDENTIFY POTENTIAL ISSUES THAT MAY COMPLICATE THE PROVISION OF THE PLAN OF CARE INCLUDING THE PATIENTS ABILITY TO ACCESS COMMUNITY RESOURCES AND PSYCHOSOCIAL SUPPORT SERVICES. [code = SKILLED NURSE TO ASSESS PATIENTS PSYCHOSOCIAL STATUS TO IDENTIFY POTENTIAL ISSUES THAT MAY COMPLICATE THE PROVISION OF THE PLAN OF CARE INCLUDING THE PATIENTS ABILITY TO ACCESS COMMUNITY RESOURCES AND PSYCHOSOCIAL SUPPORT SERVICES.] Future Scheduled Test SKILLED NU RSE FOR O/A AND TEACHING OF ENDOCRINE SYSTEM TO IDENTIFY CHANGES ASSOCIATED WITH EXACERBATION OF HYPOTHYROIDISM FOR EARLY INTERVENTION OF COMPLICATIONS. [code = SKILLED NURSE FOR O/A AND TEACHING OF ENDOCRINE SYSTEM TO IDENTIFY CHANGES ASSOCIATED WITH EXACERBATION OF HYPOTHYROIDISM FOR EARLY INTERVENTION OF COMPLICATIONS.] Future Scheduled Test SKILLED NU RSE FOR O/A TO IDENTIFY CHANGES ASSOCIATED WITH DYSPHAGIA, RIGHT SIDE WEAKNESS AND PROVIDE INSTRUCTION RELATED TO SAFETY MEASURES TO PREVENT INJURY SECONDARY TO IMPAIRED NEUROLOGICAL STATUS. SKILLED NURSE TO REPORT SIGNIFICANT CHANGES OF NEUROLOGIC STATUS TO PHYSICIAN FOR EARLY INTERVENTION. [code = SKILLED NURSE FOR O/A TO IDENTIFY CHANGES ASSOCIATED WITH DYSPHAGIA, RIGHT SIDE WEAKNESS AND PROVIDE INSTRUCTION RELATED TO SAFETY MEASURES TO PREVENT INJURY SECONDARY TO IMPAIRED NEUROLOGICAL STATUS. SKILLED NURSE TO REPORT SIGNIFICANT CHANGES OF NEUROLOGIC STATUS TO PHYSICIAN FOR EARLY INTERVENTION.] Future Scheduled Test SKILLED NU RSE TO PROVIDE TEACHING ON SIGNS AND SYMPTOMS AND MANAGEMENT OF HYPERTENSION. [code = SKILLED NURSE TO PROVIDE TEACHING ON SIGNS AND SYMPTOMS AND MANAGEMENT OF HYPERTENSION.] Future Scheduled Test SKILLED NU RSE TO INSTRUCT PATIENT/CAREGIVER ON WARNING SIGNS OF CVA, RISK FACTORS, AND METHODS TO MANAGE SENIOR CARE EFFECTS OF CVA. [code = SKILLED NURSE TO INSTRUCT PATIENT/CAREGIVER ON WARNING SIGNS OF CVA, RISK FACTORS, AND METHODS TO MANAGE SENIOR CARE EFFECTS OF CVA.] Future Scheduled Test SKILLED NU RSE FOR O/A AND SKILLED TEACHING RELATED TO SIGNS AND SYMPTOMS AND MANAGEMENT OF ANEMIA. [code = SKILLED NURSE FOR O/A AND SKILLED TEACHING RELATED TO SIGNS AND SYMPTOMS AND MANAGEMENT OF ANEMIA.] Future Scheduled Test SKILLED NU RSE FOR O/A AND TEACHING OF DIABETIC MANAGEMENT INCLUDING BLOOD SUGAR MONITORING/USE OF GLUCOMETER, DIABETIC DIET, LOWER EXTREMITY SKIN INSPECTION, PROPER SKIN/FOOT CARE, AND SIGNS AND SYMPTOMS HYPO/HYPERGLYCEMIA TO REPORT. [code = SKILLED NURSE FOR O/A AND TEACHING OF DIABETIC MANAGEMENT INCLUDING BLOOD SUGAR MONITORING/USE OF GLUCOMETER, DIABETIC DIET, LOWER EXTREMITY SKIN INSPECTION, PROPER SKIN/FOOT CARE, AND SIGNS AND SYMPTOMS HYPO/HYPERGLYCEMIA TO REPORT.] Future Scheduled Test SKILLED NU RSE FOR O/A AND SKILLED TEACHING RELATED TO SIGNS AND SYMPTOMS AND MANAGEMENT OF RIGHT KNEE OA, OSTEOPOROSIS. [code = SKILLED NURSE FOR O/A AND SKILLED TEACHING RELATED TO SIGNS AND SYMPTOMS AND MANAGEMENT OF RIGHT KNEE OA, OSTEOPOROSIS.] Future Scheduled Test PATIENT MCCALLUM S A RISK OF HOSPITALIZATION AND ED USE. SKILLED NURSE TO ESTABLISH SUPPORT MEASURES TO MINIMIZE RISK OF HOSPITALIZATION AND ED USE, AND INSTRUCT PATIENT/CAREGIVER ON METHODS TO REDUCE AVOIDABLE HOSPITALIZATION AND ED USE. [code = PATIENT HAS A RISK OF HOSPITALIZATION AND ED USE. SKILLED NURSE TO ESTABLISH SUPPORT MEASURES TO MINIMIZE RISK OF HOSPITALIZATION AND ED USE, AND INSTRUCT PATIENT/CAREGIVER ON METHODS TO REDUCE AVOIDABLE HOSPITALIZATION AND ED USE.] Future Scheduled Test SKILLED NU RSE TO PROVIDE INSTRUCTION TO PATIENT/CAREGIVER RELATED TO DISCHARGE PLANNING. [code = SKILLED NURSE TO PROVIDE INSTRUCTION TO PATIENT/CAREGIVER RELATED TO DISCHARGE PLANNING.] Future Scheduled Test SKILLED NU RSE TO PERFORM ENVIRONMENTAL SAFETY RISK ASSESSMENT AND FALL RISK ASSESSMENT AND PROVIDE INSTRUCTION TO IMPLEMENT ENVIRONMENTAL SAFETY AND FALL PREVENTION STRATEGIES THROUGHOUT THE CERTIFICATION PERIOD. SKILLED NURSE WILL MAINTAIN SITUATIONAL AWARENESS AND WILL NOTIFY CLINICAL RN TELEPHONE TRIAGE AND PHYSICIAN/PROVIDER WITH ANY CHANGE IN CONDITION. [code = SKILLED NURSE TO PERFORM ENVIRONMENTAL SAFETY RISK ASSESSMENT AND FALL RISK ASSESSMENT AND PROVIDE INSTRUCTION TO IMPLEMENT ENVIRONMENTAL SAFETY AND FALL PREVENTION STRATEGIES THROUGHOUT THE CERTIFICATION PERIOD. SKILLED NURSE WILL MAINTAIN SITUATIONAL AWARENESS AND WILL NOTIFY CLINICAL RN TELEPHONE TRIAGE AND PHYSICIAN/PROVIDER WITH ANY CHANGE IN CONDITION.] Future Scheduled Test SKILLED NU RSE FOR OBSERVATION AND ASSESSMENT OF PATIENTS PAIN LEVEL AND EFFECTIVENESS OF PAIN MANAGEMENT REGIMEN. SKILLED NURSE TO INSTRUCT PATIENT/CAREGIVER REGARDING PHARMACOLOGIC AND NON-PHARMACOLOGIC PAIN CONTROL MEASURES. SKILLED NURSE TO REPORT TO PHYSICIAN IF PAIN IS UNCONTROLLED WITH CURRENT PAIN MANAGEMENT REGIMEN. [code = SKILLED NURSE FOR OBSERVATION AND ASSESSMENT OF PATIENTS PAIN LEVEL AND EFFECTIVENESS OF PAIN MANAGEMENT REGIMEN. SKILLED NURSE TO INSTRUCT PATIENT/CAREGIVER REGARDING PHARMACOLOGIC AND NON-PHARMACOLOGIC PAIN CONTROL MEASURES. SKILLED NURSE TO REPORT TO PHYSICIAN IF PAIN IS UNCONTROLLED WITH CURRENT PAIN MANAGEMENT REGIMEN.] Future Scheduled Test SKILLED NU RSE TO ASSESS PATIENT'S SKIN INTEGRITY AND INSTRUCT PATIENT/CAREGIVER ON MEASURES TO PREVENT PRESSURE ULCERS. [code = SKILLED NURSE TO ASSESS PATIENT'S SKIN INTEGRITY AND INSTRUCT PATIENT/CAREGIVER ON MEASURES TO PREVENT PRESSURE ULCERS.] Future Scheduled Test SKILLED NU RSE TO PROVIDE ASSESSMENT AND TEACHING/REINFORCEMENT OF MANAGEMENT OF DEPRESSION INCLUDING DISEASE PROCESS, MEDICATION MANAGEMENT, COPING SKILLS AND IDENTIFY CHANGES ASSOCIATED WITH DEPRESSIVE DISORDERS FOR EARLY INTERVENTION. [code = SKILLED NURSE TO PROVIDE ASSESSMENT AND TEACHING/REINFORCEMENT OF MANAGEMENT OF DEPRESSION INCLUDING DISEASE PROCESS, MEDICATION MANAGEMENT, COPING SKILLS AND IDENTIFY CHANGES ASSOCIATED WITH DEPRESSIVE DISORDERS FOR EARLY INTERVENTION. ] Future Scheduled Test OCCUPATION AL THERAPIST TO EVALUATE PATIENT SECONDARY TO FUNCTIONAL DEFICITS/SAFETY CONCERNS IDENTIFIED DURING EVALUATION OCCUPATIONAL THERAPY TO ESTABLISH /UPGRADE/DOWNGRADE THERAPEUTIC EXERCISE PROGRAM AND INSTRUCT PATIENT/CAREGIVER ON EXERCISE PRECAUTIONS WITH WRITTEN HOME PROGRAM. MAY INCLUDE PROM, AAROM, AROM, RROM APPROPRIATE TO IMPROVE FUNCTIONAL STRENGTH AND/OR RANGE OF MOTION. OCCUPATIONAL THERAPY TO ASSESS AND RECOMMEND HOME SAFETY ADAPTATIONS AND EDUCATE PATIENT /CAREGIVER ON FALL PREVENTION STRATEGIES TO ENHANCE PARTICIPATION IN ADLS. SUMMARY OF THERAPY EVAL/ASSESSMENT FINDINGS AND REASON(S) SKILLS OF A THERAPIST ARE INDICATED: OT EVALUATION (04/30/24) PATIENT IS 79-YEAR-OLD FEMALE REFERRED TO OCCUPATIONAL THERAPY SERVICES AFTER RECENT HOSPITALIZATION AFTER HAVING ALTERED MENTAL STATUS AND BEING FOUND NONRESPONSIVE. PATIENT WAS WORKED UP FOR CVA HOWEVER THAT WAS RULED OUT AND WAS DIAGNOSED WITH ENCEPHALOPATHY. SHE WAS STABILIZED AND DISCHARGED HOME ON NO NEW MEDICATION CHANGES. PAST MEDICAL HISTORY SIGNIFICANT FOR: HISTORY OF CVA, HYPERTENSION, URINARY RETENTION, ANEMIA, DIABETES. PRIOR LEVEL OF FUNCTION: PATIENT LIVES ALONE IN A ROOMING HOUSE. SHE AMBULATES WITHOUT THE USE OF A DEVICE AND HAS ASSISTANCE FOR SHOWER LEVEL BATHING AND IADLS. SHE HAS TRANSPORTATION ASSISTANCE, SHOPPING ASSISTANCE AND MEDICATION ASSISTANCE. CURRENT LEVEL OF FUNCTION: PATIENT AMBULATING THROUGHOUT HOME WITHOUT ASSISTIVE DEVICE INDEPENDENTLY. SHE DOES HAVE SERVICES DAILY FIRM SURFACE NECK THAT ASSIST WITH SHOWER LEVEL BATHING HOWEVER PATIENT IS ABLE TO DRESS SELF INDEPENDENTLY AND SPONGE BATHE INDEPENDENTLY. SHE IS NAVIGATING TOILETING INDEPENDENTLY. ABLE TO PERFORM TRANSFERS IN AND OUT OF BED ON AMOXIL TOILET AND DEPENDENT. REQUIRES CONTACT GUARD TO MIN ASSIST TO GET IN AND OUT OF BATHTUB. RECOMMENDED TUB SEAT HOWEVER PATIENT SAYS SHE DOES NOT TAKE THEM ALONE AND ALWAYS HAS SOMEBODY WITH HER FOR SAFETY. SHE HAS A HELPER THAT ASSISTS WITH MEAL PREP ALTHOUGH SHE IS ABLE TO GET SIMPLE SNACKS. HOSPITAL DID REPORT SHE HAD A SWALLOWING EVAL UPON DISCHARGE FROM THE HOSPITAL WITH A DYSPHAGIA DIET OF GROUND FOOD WITH THIN LIQUIDS. PATIENT IS NOT FOLLOWING THIS DIET SHE HAD CRACKERS AND A BOWL THAT SHE IS SNACKING ON UPON MY ARRIVAL. SHE REPORTS PAIN AT A 5-6/10 IN HER RIGHT SHOULDER WHICH IS HER DOMINANT SIDE. SHE IS TAKING TYLENOL WITH MINIMAL EFFECT. EDUCATION PROVIDED ON USING ICE TO HELP WITH PAIN SHE WAS TENDER UPON PALPATION OVER THE VAMP WETTER BORDER. RANGE OF MOTION LIMITED IN THE RIGHT SHOULDER MOVEMENTS HOWEVER ALL OTHER JOINTS AND LEFT UPPER EXTREMITY WITHIN FUNCTIONAL LIMITS. STRENGTH FAIR THROUGHOUT BILATERALLY. ASSESSMENT/POC: OCCUPATIONAL THERAPY EVALUATION COMPLETED TODAY WITH RECOMMENDATION FOR SKILLED OT SERVICES 1 TIMES A WEEK X4 TO ADDRESS PATIENT'S RIGHT UPPER EXTREMITY RANGE OF MOTION, PAIN AND WEAKNESS IMPACTING HER SELF-CARE AND IADLS. PATIENT IN AGREEMENT WITH PLAN OF CARE. MD NOTIFIED OF OT EVAL AND PLAN OF CARE. OCCUPATIONAL THERAPIST TO ASSESS BEST PRACTICE INTERVENTIONS TO ASSIST PATIENTS TO IMPROVE OR STABILIZE MEDICAL STATUS AND PREVENT RE-HOSPITALIZATION. MEASURES INCLUDING REVIEW AND IDENTIFICATION OF CONCERNS FOR THE FOLLOWING AREAS: DEPRESSION, DRUG REGIMEN, DIABETIC FOOT CARE, ENVIRONMENTAL SAFETY ISSUES AND FALLS, PRESSURE ULCERS, PAIN, AND DISEASE MANAGEMENT. [code = OCCUPATIONAL THERAPIST TO EVALUATE PATIENT SECONDARY TO FUNCTIONAL DEFICITS/SAFETY CONCERNS IDENTIFIED DURING EVALUATION OCCUPATIONAL THERAPY TO ESTABLISH /UPGRADE/DOWNGRADE THERAPEUTIC EXERCISE PROGRAM AND INSTRUCT PATIENT/CAREGIVER ON EXERCISE PRECAUTIONS WITH WRITTEN HOME PROGRAM. MAY INCLUDE PROM, AAROM, AROM, RROM APPROPRIATE TO IMPROVE FUNCTIONAL STRENGTH AND/OR RANGE OF MOTION. OCCUPATIONAL THERAPY TO ASSESS AND RECOMMEND HOME SAFETY ADAPTATIONS AND EDUCATE PATIENT /CAREGIVER ON FALL PREVENTION STRATEGIES TO ENHANCE PARTICIPATION IN ADLS. SUMMARY OF THERAPY EVAL/ASSESSMENT FINDINGS AND REASON(S) SKILLS OF A THERAPIST ARE INDICATED: OT EVALUATION (04/30/24) PATIENT IS 79-YEAR-OLD FEMALE REFERRED TO OCCUPATIONAL THERAPY SERVICES AFTER RECENT HOSPITALIZATION AFTER HAVING ALTERED MENTAL STATUS AND BEING FOUND NONRESPONSIVE. PATIENT WAS WORKED UP FOR CVA HOWEVER THAT WAS RULED OUT AND WAS DIAGNOSED WITH ENCEPHALOPATHY. SHE WAS STABILIZED AND DISCHARGED HOME ON NO NEW MEDICATION CHANGES. PAST MEDICAL HISTORY SIGNIFICANT FOR: HISTORY OF CVA, HYPERTENSION, URINARY RETENTION, ANEMIA, DIABETES. PRIOR LEVEL OF FUNCTION: PATIENT LIVES ALONE IN A ROOMING HOUSE. SHE AMBULATES WITHOUT THE USE OF A DEVICE AND HAS ASSISTANCE FOR SHOWER LEVEL BATHING AND IADLS. SHE HAS TRANSPORTATION ASSISTANCE, SHOPPING ASSISTANCE AND MEDICATION ASSISTANCE. CURRENT LEVEL OF FUNCTION: PATIENT AMBULATING THROUGHOUT HOME WITHOUT ASSISTIVE DEVICE INDEPENDENTLY. SHE DOES HAVE SERVICES DAILY FIRM SURFACE NECK THAT ASSIST WITH SHOWER LEVEL BATHING HOWEVER PATIENT IS ABLE TO DRESS SELF INDEPENDENTLY AND SPONGE BATHE INDEPENDENTLY. SHE IS NAVIGATING TOILETING INDEPENDENTLY. ABLE TO PERFORM TRANSFERS IN AND OUT OF BED ON AMOXIL TOILET AND DEPENDENT. REQUIRES CONTACT GUARD TO MIN ASSIST TO GET IN AND OUT OF BATHTUB. RECOMMENDED TUB SEAT HOWEVER PATIENT SAYS SHE DOES NOT TAKE THEM ALONE AND ALWAYS HAS SOMEBODY WITH HER FOR SAFETY. SHE HAS A HELPER THAT ASSISTS WITH MEAL PREP ALTHOUGH SHE IS ABLE TO GET SIMPLE SNACKS. HOSPITAL DID REPORT SHE HAD A SWALLOWING EVAL UPON DISCHARGE FROM THE HOSPITAL WITH A DYSPHAGIA DIET OF GROUND FOOD WITH THIN LIQUIDS. PATIENT IS NOT FOLLOWING THIS DIET SHE HAD CRACKERS AND A BOWL THAT SHE IS SNACKING ON UPON MY ARRIVAL. SHE REPORTS PAIN AT A 5-6/10 IN HER RIGHT SHOULDER WHICH IS HER DOMINANT SIDE. SHE IS TAKING TYLENOL WITH MINIMAL EFFECT. EDUCATION PROVIDED ON USING ICE TO HELP WITH PAIN SHE WAS TENDER UPON PALPATION OVER THE VAMP WETTER BORDER. RANGE OF MOTION LIMITED IN THE RIGHT SHOULDER MOVEMENTS HOWEVER ALL OTHER JOINTS AND LEFT UPPER EXTREMITY WITHIN FUNCTIONAL LIMITS. STRENGTH FAIR THROUGHOUT BILATERALLY. ASSESSMENT/POC: OCCUPATIONAL THERAPY EVALUATION COMPLETED TODAY WITH RECOMMENDATION FOR SKILLED OT SERVICES 1 TIMES A WEEK X4 TO ADDRESS PATIENT'S RIGHT UPPER EXTREMITY RANGE OF MOTION, PAIN AND WEAKNESS IMPACTING HER SELF-CARE AND IADLS. PATIENT IN AGREEMENT WITH PLAN OF CARE. MD NOTIFIED OF OT EVAL AND PLAN OF CARE. OCCUPATIONAL THERAPIST TO ASSESS BEST PRACTICE INTERVENTIONS TO ASSIST PATIENTS TO IMPROVE OR STABILIZE MEDICAL STATUS AND PREVENT RE-HOSPITALIZATION. MEASURES INCLUDING REVIEW AND IDENTIFICATION OF CONCERNS FOR THE FOLLOWING AREAS: DEPRESSION, DRUG REGIMEN, DIABETIC FOOT CARE, ENVIRONMENTAL SAFETY ISSUES AND FALLS, PRESSURE ULCERS, PAIN, AND DISEASE MANAGEMENT. ] Goal Patient Goal - U SE MY RIGHT ARM MORE WITH DOCTOR ... Goal Provider Goal - A PLAN OF CARE WILL BE ESTABLISHED THAT MEETS PATIENT'S SHELTER NEEDS AND INCLUDES PATIENT GOAL FOR HOME HEALTH. Goal Provider Goal - PATIENT/CAREGIVER WILL VERBALIZE UNDERSTANDING OF EDUCATION PROVIDED ON MEDICATIONS BY THE END OF THE CERTIFICATION PERIOD. Goal Provider Goal - SYMPTOMS OF ANXIETY ARE IDENTIFIED AND INTERVENTIONS INITIATED TO ENABLE PATIENT TO UNDERSTAND AND MANAGE FEELINGS THROUGHOUT EPISODE. Goal Provider Goal - EXACERBATIONS OF GASTROINTESTINAL DISEASE WILL BE PROMPTLY IDENTIFIED AND INTERVENTIONS IMPLEMENTED TO MINIMIZE RISKS TO PATIENT BY END OF EPISODE. Goal Provider Goal - PATIENT/CAREGIVER WILL VERBALIZE UNDERSTANDING OF GENITOURINARY DISEASE PROCESS, AND EXACERBATIONS OF GENITOURINARY DISEASE WILL BE PROMPTLY IDENTIFIED FOR EARLY INTERVENTION THROUGHOUT THE CERTIFICATION PERIOD. Goal Provider Goal - OCCUPATIONAL THERAPY EVALUATION TO BE COMPLETED WITH RECOMMENDATIONS AND WRITTEN PLAN OF TREATMENT ESTABLISHED FOR THE PHYSICIANS SIGNATURE. Goal Provider Goal - CHANGES IN PSYCHOSOCIAL STATUS WILL BE IDENTIFIED AND PLAN IMPLEMENTED TO MINIMIZE PATIENT RISKS THROUGHOUT THE CERTIFICATION PERIOD. Goal Provider Goal - PATIENT/CAREGIVER WILL VERBALIZE SIGNS AND SYMPTOMS OF EXACERBATION OF ENDOCRINE DIAGNOSIS TO REPORT TO NURSE/PHYSICIAN THROUGHOUT THE CERTIFICATION PERIOD. Goal Provider Goal - CHANGES IN NEUROLOGIC STATUS WILL BE IDENTIFIED AND REPORTED TO THE PHYSICIAN FOR PROMPT INTERVENTION OF ASSOCIATED RISK. PATIENT/CAREGIVER WILL VERBALIZE/DEMONSTRATE APPROPRIATE SAFETY MEASURES TO PREVENT INJURY BY THE END OF THE CERTIFICATION PERIOD. Goal Provider Goal - PATIENT/CAREGIVER WILL VERBALIZE SIGNS AND SYMPTOMS OF HYPERTENSION AND WILL BE ABLE TO DEMONSTRATE ABILITY TO MANAGE EXACERBATION BY END OF THE EPISODE. Goal Provider Goal - PATIENT/CAREGIVER WILL DEMONSTRATE COMPLIANCE WITH TREATMENT REGIME AND VERBALIZE SIGNS AND SYMPTOMS TO REPORT WELL POSSIBLE COMPLICATIONS OF CVA BY END OF EPISODE. Goal Provider Goal - PATIENT/CARGIVER WILL VERBALIZE UNDERSTANDING OF ANEMIA INCLUDING SIGNS AND SYMPTOMS, MANAGEMENT OF COMPLICATIONS, AND PRESCRIBED TREATMENT REGIMEN BY END OF EPISODE. Goal Provider Goal - PATIENT/CAREGIVER WILL VERBALIZE/DEMONSTRATE KNOWLEDGE OF DIABETIC MANAGEMENT. CHANGES IN DIABETIC STATUS WILL BE IDENTIFIED AND REPORTED TO PHYSICIAN FOR PROMPT INTERVENTION THROUGHOUT THE CERTIFICATION PERIOD. Goal Provider Goal - PATIENT/CAREGIVER WILL VERBALIZE UNDERSTANDING OF MUSCULOSKELETAL DISEASE INCLUDING SIGNS AND SYMPTOMS, MANAGEMENT, AND PRESCRIBED TREATMENT REGIMEN BY END OF EPISODE. Goal Provider Goal - PATIENT WILL HAVE SUPPORT MEASURES ESTABLISHED TO PREVENT HOSPITALIZATION AND ED USE AND PATIENT/CAREGIVER WILL VERBALIZE/DEMONSTRATE METHODS TO REDUCE AVOIDABLE HOSPITALIZATION AND ED USE BY END OF EPISODE. Goal Provider Goal - PATIENT/CAREGIVER WILL VERBALIZE UNDERSTANDING OF DISCHARGE PLANNING INSTRUCTIONS BY DATE OF DISCHARGE. Goal Provider Goal - PATIENT/CAREGIVER WILL VERBALIZE/DEMONSTRATE EFFECTIVE ENVIRONMENTAL SAFETY AND FALL PREVENTION STRATEGIES, WILL REMAIN SAFE IN THE COMMUNITY, AND WILL BE FREE OF DANGER TO SELF AND OTHERS THROUGHOUT THE CERTIFICATION PERIOD. Goal Provider Goal - PATIENT/CAREGIVER WILL DEMONSTRATE UNDERSTANDING OF PHARMACOLOGIC AND NONPHARMACOLOGIC PAIN CONTROL MEASURES AND PATIENT WILL HAVE IMPROVEMENT IN PAIN INTERFERING WITH ACTIVITY EVIDENCED BY PAIN CONTROLLED AT LEVEL OF 7 OR LESS BY END OF CERTIFICATION PERIOD. Goal Provider Goal - PATIENT/CAREGIVER WILL VERBALIZE UNDERSTANDING OF PRESSURE ULCER PREVENTION BY END OF THE EPISODE. Goal Provider Goal - PATIENT/CAREGIVER WILL VERBALIZE/DEMONSTRATE UNDERSTANDING OF THE MANAGEMENT OF DEPRESSION THROUGHOUT THE CERTIFICATION PERIOD AND SYMPTOMS ARE IDENTIFIED AND MANAGED TO MAINTAIN PATIENT SAFETY IN THE HOME. Goal Provider Goal - OCCUPATIONAL THERAPIST TO EVALUATE PATIENT SECONDARY TO FUNCTIONAL DEFICITS/SAFETY CONCERNS IDENTIFIED DURING EVALUATION. PATIENT/CAREGIVER WILL PERFORM THERAPEUTIC EXERCISE/S AND DEMONSTRATE PARTICIPATION IN A HOME PROGRAM. CAREGIVER/PATIENT WILL DEMONSTRATE/VERBALIZE UNDERSTANDING OF RECOMMENDATIONS TO INCREASE SAFETY IN THE HOME AND FALL PREVENTION. PATIENT/CAREGIVER VERBALIZES UNDERSTANDING OF THE INITIAL BEST PRACTICE RECOMMENDATIONS. PHYSICIAN TO BE NOTIFIED APPROPRIATE FOR ANY CHANGES OR COMPLICATIONS THROUGHOUT THE CERTIFICATION PERIOD. Progress Notes Progress Notes <paragraph>[Visit Date: 2024 by CLAUDETTE YOU RN]:</paragraph><paragraph>SNV ABNORMAL VITALS: WNL FALLS:N PHYSICAL ASSESSMENT FINDINGS: PT AWAKE AND ALERT VSS AFEBRILE LUNGS DIM THROUGHOUT SPEAKING IN FULL SENTENCES NAD NOTED ABD SNT POS BS REPORTS BM TODAY. REVIEWED BOWEL REGIME. PTS 4TH TOE KNUCKLE AREA WITH CALLOUS LIKE AREA WITH LOOSENED CALLOUS OOZING SCANT DRAINAGE SEROSANG. PAINFUL. SURROUNDING SKIN RED. CALLED DR LOVE [employer]. PT WITH APPT IN JUNE. REQUEST EARLIER APPT DUE TO AREA. ABLE TO HAVE PT BE SEEN MONDAY AT 3P. HER NUTRITION PROFESSOR WILL DRIVE HER TO APPT. AREA CLEANSED BETADINE PAINT TO AREA PER [employer] REC. MEDICATION CHANGES: NONE HANDS ON CARE: ASSESSMENT TEACHING WOUND CARE TOE REVIEWED ELEVATION AND THAT SHOE MAY BE RUBBING ON TOES. PT WITH ARTHRITIC JOINTS ON ALL TOES TEACHING PROVIDED: INFECTION CONTROL WOUND CARE IMPORTANCE OF KEEPING [employer] MANA[employer] APPOINTMENT PATIENT/CAREGIVER TEACH BACK:VERBALIZED UNDERSTANDING NEXT APPOINTMENT: WED [employer] NEW ORDERS: BETADINE TO L 4TH TOE KNUCKLE INSTRUCTED PATIENT AND CAREGIVER TO CALL [facility] WITH ANY QUESTIONS OR CHANGES IN CONDITION</paragraph> Encounters Start Date/Time End Date/Time Encounter Type Admission Type Attending [facility] Facility Care Department Encounter ID Discharge Date Discharge Status Discharge Condition Discharge Reason Percent Goals Met 2024-04-27 00:00:00 2024-06-25 00:00:00 Outpatient CLAUDETTE WIN [facility] [id number]
--- OUTSIDE RECORDS SUMMARY | 2024-05-19 05:11 | XMS_ITS | Data Portability ---
Author Organization [facility], Main Office Address [address], [address] [place] [address] Care Team Providers Care Hyperion Developer Name Role Phone RONALDO PERAZA - 2ND FLOOR OTHER NICK VALENTIN Primary Care Provider Assessment Encounter Date Assessment Date Assessment LastModified by Organization Details LastModified Time 11/01/2023 11/01/2023 spent >30 minutes on coordination of discharge, scripts, planning, assessment, and documentation Not available 11/01/2023 12:48:28 Plan of Treatment Reminders Order Date Submit Date Provider Last Modified By Organization Details Last Modified Time Details Appointments None record ed. Lab None record ed. Referral None record ed. Procedures None record ed. Surgeries None record ed. Imaging None record ed. Medication Orders None record ed. Patient TargetsNo targets recorded. Patient InstructionsNo instructions recorded. Reason for Referral None Reported. Problems Name Problem SNOMED Code Status Onset Date Resolution Date Notes Provider Name and Address Organization Details Recorded Time Anemia 200137927 Active 2023 Alyssa Birch NP [address] [facility], [address], [place], [address], [facility] 4 08:18:03 Adult failure to thrive syndrome 608063844 Active 2023 Alyssa Birch NP [address], [address], [place], [address], [facility] 4 08:18:14 Cerebrovascula r accident 209773236 Active 2023 Alyssa Birch NP [address] [facility], [address], [place], [address], [facility] 4 08:18:26 Gastroesophage al reflux disease 735417286 Active 2023 Alyssa Birch NP [address] [facility], [address], [place], [address], [facility] 4 08:18:36 Hypertensive disorder 73847425 Active 2023 Alyssa Birch NP [address], [place], [address], [facility] 4 08:18:53 Hypothyroidism 72465204 Active 2023 Alyssa Birch NP [address], [place], [address], [facility] 4 08:19:22 Major depressive disorder 923023946 Active 2023 Alyssa Birch NP [address] [facility], [address], [place], [address], [facility] 4 08:22:02 Osteoporosis 84030771 Active 2023 Alyssa Birch NP [address] [facility], [address], [place], [address], [facility] 4 08:22:29 Thrombocytopen ic disorder 409210038 Active 2023 Alyssa Birch NP [address] [facility], [address], [place], [address], [facility] 4 08:22:52 Type 2 diabetes mellitus 83294797 Active 2023 Alyssa Birch NP [address] [facility], [address], [place], [address], [facility] 4 08:23:13 Fracture of neck of femur 2429732 Active 2023 Alyssa Birch NP [address] [facility], [address], [place], [address], [facility] 4 09:10:23 Retention of urine 604052551 Active 2023 Alyssa Birch NP [address], [address], [place], [address], [facility] 4 09:15:59 Recurrent falls 912819336 Active 2023 JOSE LUIS MESA NP [address] [facility], [address], [place], [address], [facility] 4 14:26:14 Developmental delay 359434299 Active 2023 Adelina Monsalve MD [address], [address], [place], [address], [facility] 4 15:24:05 Problem Notes None recorded. Medical Equipment None Reported. Allergies Allergen ID Allergen Name Allergen Category Reaction Reaction Severity Criticality Documentation Date Start Date Code Code System Note Provider Name and Address Organization Details Recorded Time 54613 propoxyph marisa medicatio n other Not available [facility] 09/20/2023 8785 RxNorm unkno wn liste d as mild from darvo n Not Available Not Available Not Available 35494 alteplase medicatio n itching Not [facility] 09/20/2023 8410 RxNorm Not Available Not Available Not Available 75886 metformin medicatio n diarrhea rash Not available Not available [facility] 09/20/2023 6809 RxNorm Not Available Not Available Not Available Medications Name Sig Start Date Stop Date Status Note LastModified by Organization Details LastModified Time atorvastatin 20 mg tablet active Not Available Not Available Not Available lisinopril 20 mg tablet active Not Available Not Available No t Available alendronate 70 mg tablet active Not Available Not Available Not Available clopidogrel 75 mg tablet active Not Available Not Available Not Available acetaminophen 500 mg tablet TAKE 2 TABLETS BY MOUTH EVERY 8 HOURS FOR 10 DAYS. active Not Available Not Available No t Available levothyroxine 88 mcg tablet active Not Available Not Availabl e Not Available tamsulosin 0.4 mg capsule active Not Available Not Available Not Available cephalexin 500 mg capsule active Not Available Not Available Not Available prednisone 50 mg tablet TAKE 1 TABLET BY MOUTH EVERY DAY active Not Available Not Available No t Available Banophen 25 mg capsule TAKE 1 TO 2 CAPSULES BY MOUTH EVERY 6 HOURS NEEDED FOR PRURITUS active Not Available Not Available No t Available hydrocortison e 2.5 % topical ointment active Not Available Not Available Not Available clotrimazole 1 % topical cream active Not Available Not Available Not Available atenolol 50 mg tablet active Not Available Not Available No t Available oxycodone 5 mg tablet oxycodone 5 mg po BID scheduled and 5 mg po q 4 hrs prn mod pain and 10 mg po q 4 hrs prn severe pain. 2023 active Not Available Not Available Not Avai lable Vitals Date Recorded Body height Body weight Heart rate Respiratory rate Body temperature Oxygen saturation Oxygen saturation in Arterial blood by Pulse oximetry Systolic blood pressure Diastolic blood pressure Provider Name and Address Organization Details Last Updated DateTime 4 160.02 cm 73473.4 9 g 76 /min 18 /min 97.8 [degF] 96 % 96 % 132 mm[Hg] 68 mm[Hg] Alyssa Birch NP [address] [facility] [address], [place], [address], [facility] 4 08:04:26 Date Recorded Body height Body weight Heart rate Respiratory rate Body temperature Oxygen saturation Oxygen saturation in Arterial blood by Pulse oximetry Systolic blood pressure Diastolic blood pressure Provider Name and Address Organization Details Last Updated DateTime 4 160.02 cm 76301.4 9 g 70 /min 17 /min 97.8 [degF] 98 % 98 % 130 mm[Hg] 68 mm[Hg] Alyssa Birch NP [address] [facility] [address], [place], [address], [facility] 4 09:08:04 Date Recorded Body height Body weight Heart rate Respiratory rate Body temperature Oxygen saturation Oxygen saturation in Arterial blood by Pulse oximetry Systolic blood pressure Diastolic blood pressure Provider Name and Address Organization Details Last Updated DateTime 4 160.02 cm 90999.2 9 g 67 /min 18 /min 97.2 [degF] 99 % 99 % 131 mm[Hg] 62 mm[Hg] Alyssa Birch NP [address] [facility] [address], [place], [address], [facility] 4 08:59:16 Date Recorded Body height Body mass index (BMI) Body weight Heart rate Respiratory rate Body temperature Oxygen saturation Oxygen saturation in Arterial blood by Pulse oximetry Systolic blood pressure Diastolic blood pressure Provider Name and Address Organization Details Last Updated DateTime 4 160.02 cm 21.1 kg/m2 35388.4 9 g 70 /min 18 /min 98 [degF] 98 % 98 % 128 mm[Hg] 72 mm[Hg] Alyssa Birch NP [address] , [address], [place], [address], [facility] 4 18:48:36 Date Recorded Body height Body weight Heart rate Respiratory rate Body temperature Oxygen saturation Oxygen saturation in Arterial blood by Pulse oximetry Systolic blood pressure Diastolic blood pressure Provider Name and Address Organization Details Last Updated DateTime 4 160.02 cm 48589.5 3 g 72 /min 18 /min 98 [degF] 98 % 98 % 113 mm[Hg] 66 mm[Hg] Alyssa Birch NP [address] , [address], [place], [address], [facility] 4 11:56:56 Social History Question Answer Notes LastModified by Organization Details LastModified Time Tobacco Smoking Status Former Smoker Alyssa Birch NP [address] [facility], [address], [place], [address], [facility] 09/20/2023 08:36:16 Do You Have An Advance Directive? Yes Information not available 09/20/2023 What Is Your Level Of Alcohol Consumption? None Information not available 09/20/2023 What Is Your Code Status? DNR/DNI Also Says DNH, But Pt Has Agreed To Several Hospitalizations Information not available 09/26/2023 Where Do You Live? SingleLevelHouse Lives Alone With 7-5 [employer] SE[employer] Support Through [facility] Information not available 09/26/2023 Legal Guardian? No Information not available 09/26/2023 Do You Have A Medical Power Of Well Control Instructor? Yes Information not available 09/26/2023 What Was The Date Of Your Most Recent Tobacco Screening? 09/20/2023 Information not available 09/20/2023 Do You Have An Out Of Hospital DNR? Yes Information not available 09/20/2023 What Is Your Relationship Status? Single Information not available 09/26/2023 How Much Tobacco Do You Smoke? No States Not Smoking For Some Time Information not available 09/20/2023 Do You Use Any Illicit Or Recreational Drugs? No Information not available 09/20/2023 Has Tobacco Cessation Counseling Been Provided? No N/A As Pt No Longer Smokes Information not available 09/26/2023 Do You Or Have You Ever Used Any Other Forms Of Tobacco Or Nicotine? No Information not available 09/20/2023 Sex: Female Functional Status None recorded. Mental Status None recorded. Family History Nothing Reported Notes:noncontributory Medical History No medical history recorded. Gynecological HistoryNo gynecological history recorded. Obstetrics History GPAL:G 0 P 0 0 0 0 Immunizations Vaccine Type Date Status Note Provider Nam e and Address Organization Details Recorded Time Td(adult) unspecified formulation 5 completed Fatou Avni [facility] 09/21/2023 12:25:08 Td(adult) unspecified formulation 6 completed Fatou Avni [facility] 09/21/2023 12:25:15 Pneumococcal conjugate PCV 13 5 completed Fatou Avni [facility] 09/21/2023 12:25:29 pneumococcal polysaccharide PPV23 5 completed Fatou Avni [facility] 09/21/2023 12:25:56 pneumococcal polysaccharide PPV23 0 completed Fatou Avni [facility] 09/21/2023 12:26:03 influenza, unspecified formulation 2 completed Fatou Avni [facility] 09/21/2023 12:26:20 influenza, unspecified formulation 3 completed Fatou Avni [facility] 09/21/2023 12:26:27 Past Encounters Encounter ID Performer Location Encounter Start Date Encounter Closed Date Diagnosis/Indication Diagnosis SNOMED-CT Code Diagnosis ICD10 Code Diagnosis Note [id number] Alyssa Birch NP [address] [address] 09/20/2023 07:44:42 09/26/2023 14:31:10 Fracture of neck of femur 4761183 S72.002E pt underwendt left hip replacemen t with kin accolade 2 #4 on 09/17/[address] Manning09/19 will increase oxycodone 5 mg po bid and q 4 hours prn as needed. may repeat dose in 1 hour if first dose ineffectiv start tylenol 1000 mg po tidcontdoc usate 100 mg po qhsmiralax 17 gram po dailysenna 17.2mg po daily prnortho planplavix and asa for ac prophylaxi s, was on this for cva prior alsoPT OT eval and treat: posterior precaution s, gait training, ROM, strengthen ing, limit stair climbingno showering, no tub bath- keep dressing c/d/amada driving for 6 weeksfu with [facility] ortho in 2 weeks Major depr essive disorder 855225543 F32.9 with request psych consult for depression likely depression has been ongoing but seems worse with new defecitnot on any meds for thismonito r Adult fail ure to thrive syndrome 784436904 R62.7 Pt with wgt loss prior to coming here and continues to eat poorlymoni tor wgt 2x weeklydiet matilde consult for supplement smonitor closely Cerebrovas cular accident 074325155 I63.9 cva historyasp irin 81 mg po qhsatorvas tatin 20 mg po dailymonit or Asthenia 83371557 R53.1 with hx of cva and now left hip surgeryPT OT eval and treat as abovemonit or Type 2 erlin betes mellitus 68162753 E11.9 hx of in dc summaryno meds listednow with decreased eatingwill get ha1c and monitor Osteoporosis 82015793 M8 1.0 calcium 500 mg po qhsmonitor Thrombocyt openic disorder 545830236 D69.6 hx ofmonitor cbc weekly Hypothyroidism 22203541 E03.9 levothyrox ine 88 mcg daily 0600monito r tsh today and prn Hypertensive disorder 38 678342 I10 atenolol 50 mg po qhslisinop ril 20 mg qhsmonitor bp daily Gastroesop hageal reflux disease 692118895 K21.9 not on any meds for this, hx ofmonitor Anemia 012137541 D64.9 hx of and now with new left hip fxmonitor weekly cbc for bloodloss* amendmen t with hgb 6.7 and hct 23.2 today and pale, feels awful, willing to get tranfusion in ER today. will send Retention of urine 96429 4002 R33.9 she failed a voiding trial in the hospital prior to being transferre d to [facility] [place] and retry voiding trial on losin 0.4mg po dailymonit or for distention or s/s of infection [id number] JOSE LUIS MESA NP [address] [place] [address] 09/23/2023 14:00:41 09/26/2023 15:55:11 Recurrent falls 334111249 R29.6 PT OT eval and treatfall precaution sfrequent safety checks Fracture o f neck of femur 5031257 S72.002E pt underwendt left hip replacemen t with kin accolade 2 #4 on 09/17/[address] Manning09/19 will increase oxycodone 5 mg po bid and q 4 hours prn/ start tylenol 1000 mg po tiddocusat e 100 mg po qhsmiralax 17 gram po dailysenna 17.2mg po daily prnortho planplavix and asa for ac prophylaxi s, was on this for cva prior alsoPT OT eval and treat: posterior precaution s, gait training, ROM, strengthen ing, limit stair climbingno showering, no tub bath- keep dressing c/d/amada driving for 6 weeksfu with [facility] ortho in 2 weeks Major depr essive disorder 775477463 F32.9 with request psych consult for depression likely depression has been ongoing but seems worse with new defecitnot on any meds for thismonito r Adult fail ure to thrive syndrome 339840363 R62.7 Pt with wgt loss prior to coming here and continues to eat poorlymoni tor wgt 2x weeklydiet matilde consult for supplement smonitor closely Cerebrovas cular accident 289888645 I63.9 cva historyasp irin 81 mg po qhsatorvas tatin 20 mg po dailyplavi x 75mg dailymonit or Asthenia 82809164 R53.1 with hx of cva and now left hip surgeryPT OT eval and treat as abovemonit or Type 2 erlin betes mellitus 88671870 E11.9 hx of in dc summaryno meds listednow with decreased eatingwill get ha1c and monitor Osteoporosis 16259186 M8 1.0 calcium 500 mg po qhsmonitor Thrombocyt openic disorder 227363574 D69.6 hx ofmonitor cbc weekly Hypothyroidism 47466097 E03.9 levothyrox ine 88 mcg daily 0600monito r tsh today and prn Hypertensive disorder 38 710115 I10 atenolol 50 mg po qhslisinop ril 20 mg qhsmonitor bp daily Gastroesop hageal reflux disease 012986649 K21.9 not on any meds for this, hx ofmonitor Retention of urine 85582 4002 R33.9 she failed a voiding trial in the hospital [facility] [place] and retry voiding trial on losin 0.4mg po dailymonit or for distention or s/s of infection [id number] Adelina Monsalve MD [address] [address] 09/26/2023 13:32:33 09/27/2023 13:15:18 Anemia 717680531 D62 D64.89 Mild at baseline likely due to chronic disease and FTT.Had acute drop between 09/18 and 09/19.Now stable since transfusio n inpt, but had heme + stool.W/U not done inpt as hgb stabilized .Iron was low with nl ferritin (likely due to inflammati on)Will add FeSO4 325 mg qd.Will need f/u with GI if hgb drops again.Leela tor labs. Fracture o f neck of femur 4927952 S72.042D S/P hemiarthro plasty on 09/16.Has been hesitant to bear wt. Encouraged to start walking in order to not lose strength.N ursing has not been giving 2nd dose of oxy 5 mg if 1st dose not effective in 1 hr as noted in orders, so will change order to 5 mg q 4 hrs prn mod pain and 10 mg q 4 hrs prn severe pain.Will also schedule APAP 1000 mg TID (noted in previous note, but not in [facility]).Was supposed to be on Lovenox for DVT prophylaxi s, but wasn't on either recent d/c summary.No w will hold off due to recent heme+ stool.Is on Plavix and ASA, not really adequate for DVT prophylaxi s, but hesitate to increase ASA or add other med due to recent GI bleed.Very deconditio lynsey.Needs PT/OT for strengthen ing, balance, gait training, safety and function.C ontinue fall precaution s.Monitor for safety.F/U with ortho as planned. Major depr essive disorder 280369912 F32.89 In hx, followed by [facility] , on no meds.Mood good today.Leela tor mood.Consu lt psych Adult fail ure to thrive syndrome 001112577 R62.7 Reported hx of wt loss and poor po intake at home.Encou rage po intake here (says she doesn't like the food).Cons ider supplement s.Monitor wts and labs.Bettye bernardo consult. Cerebrovas cular accident 614363422 I63.89 With multiple old CVAs on MRI from 09/2022No recent sxs.Contin ue ASA 81 mg qd and atorvastat in 20 mg qd.Monitor for new sxs. Asthenia 32970625 R53.1 PT/OT as above.Enco urage activity. Type 2 erlin betes mellitus 46454132 E11.9 Last HgA1C I can find was 6.0 in 02/2023.Fin gersticks inpt with only one reading >200.Diet controlled at home.Monit or prn Osteoporosis 54741024 M8 1.0 Continue calcium 500 mg qdWill add vitamin D 1000 IU qd and get level with next labs.Monit or as outpt. Hypothyroidism 90029151 E03.8 Last TSH in system from 09/2022 was nl.Continu e levothyrox ine 88 mcg qdWill order TSH with next labs. Hypertensive disorder 38 260312 I10 In good control on atenolol 50 mg qd and lisinopril 20 mg qd.Monitor BP and labs. Gastroesop hageal reflux disease 057197351 K21.9 With recent heme+ stool.GI felt no urgent need for endoscopy unless hgb drops again.Curr ently stable and with no sxs.Monito r. Retention of urine 98278 4002 R33.8 she failed a voiding trial in the hospital prior to being transferre d to [facility] [place] and retry voiding trial on losin 0.4mg po dailymonit or for distention or s/s of infection Chronic constipation 236 223769 K59.09 Continue bowel meds as ordered.Mo chongor bowel function. Developmental delay 0928 [address] services in place.Able to make her own decisions. SS to f/u with outpt providers and [employer] to plan d/c, [id number] Alyssa Birch NP [address] [place] [address] 10/02/2023 09:37:39 10/06/2023 15:54:19 Fracture of neck of femur 3206916 S72.042D S/P hemiarthro plasty on 09/16.Has been hesitant to bear wt. Encouraged to start walking in order to not lose strength.c ontrepeat dose of oxy 5mg x 1 this am, nsg awareoxyco done 5 mg q 4 hrs prn mod pain and 10 mg q 4 hrs prn severe pain.sched uled APAP 1000 mg TID(Was supposed to be on Lovenox for DVT prophylaxi s, but wasn't on either recent d/c summary, will hold off due to recent heme+ stool.cont Plavix and ASA, not really adequate for DVT prophylaxi s, but hesitate to increase ASA or add other med due to recent GI bleed and transfusio ns.)PT/OT for strengthen ing, balance, gait training, safety and function.f all precaution s.Monitor for safety.F/U with ortho as planned. Anemia 702245898 D62 D64.89 Mild at baseline likely due to chronic disease and FTT.Had acute drop between 09/18 and 09/19 now improved sp transfusio n, but had heme + stool.Iron was low with nl ferritin (likely due to inflammati on)contFeS O4 325 mg qd.Will need f/u with GI if hgb drops again.10/01 add omeprazole 40 mg po daily x 6 weeks and reevalMoni tor labs. Major depr essive disorder 844435399 F32.89 In hx, followed by [facility] , on no meds. worker at bedside without concerns todayMood good today.Leela tor mood.Consu lt psych Adult fail ure to thrive syndrome 317639044 R62.7 Reported hx of wt loss and poor po intake at home.Encou rage po intake here (says she doesn't like the food).dania mendiola consulted, Consider supplement s.Monitor wts and labs.Bettye bernardo consult. Cerebrovas cular accident 689247925 I63.89 With multiple old CVAs on MRI from 09/2022No recent sxs.Contin ueASA 81 mg qdatorvast atin 20 mg qd.Monitor for new sxs. Asthenia 69883362 R53.1 PT/OT as above.Enco urage activity. Type 2 erlin betes mellitus 99543858 E11.9 Last HgA1C I can find was 6.0 in 02/2023.Fin gersticks inpt with only one reading >200.Diet controlled at home.Monit or prn Osteoporosis 43504284 M8 1.0 Continueca lcium 500 mg qdvitamin D 1000 IU qd and level with next labs.(pend ing)Monito r as outpt. Hypothyroidism 85316336 E03.8 Last TSH in system from 09/2022 was nl.Continu e levothyrox ine 88 mcg qdTSH with next labs(pendi ng). Hypertensive disorder 38 622058 I10 In good control, stablecont atenolol 50 mg qdlisinopr il 20 mg qd.Monitor BP and labs. Gastroesop hageal reflux disease 078285027 K21.9 With recent heme+ stool.GI felt no urgent need for endoscopy unless hgb drops again.Curr ently stable and with no sxs.10/01 due to heme positive stools and need for transfusio n recently will start omeprazole 40 mg po daily x 6 weeksMonit or closely Retention of urine 27067 4002 R33.8 she failed a voiding trial in the hospital prior to being transferre d to rehabfoley placed for retention on 09/30/23, awaiting UA from 09/29 if not already done, not resulted, repeat if not sentassess for [place] removal next week on 10/08 , with 2 failed trialscont tamulosin 0.4mg po dailymonit or for distention or s/s of infection Chronic constipation 236 236732 K59.09 Continue bowel meds as ordered.Mo nitor bowel function. Developmental delay 5838 86732 F70 [address] services in [address].Able to make her own decisions. SS to f/u with outpt providers and [employer] to plan d/c, [id number] Alyssa Birch NP [address] [address] 10/04/2023 15:25:04 10/09/2023 08:53:46 Retention of urine 970954081 R33.8 she failed a voiding trial in the hospital prior to being transferre d to rehabfoley placed for retention on 09/30/23,as sess for [place] removal next week on 10/08 , with 2 failed trials and need to finish abx for UTIconttam ulosin 0.4mg po dailymonit or for distention or s/s of infection Fracture o f neck of femur 2388041 S72.042D S/P hemiarthro plasty on 09/16. 10/03 Ortho [facility] appt rec:encour age pain medication prior to therapy for maximizati on fo PTOOB w all meals to encourage mobilityPT orders; WBAT, posterior precaution s, gait training, rom, strength sp left hip hemifu in [address] stinson toxycodone 5 mg q 4 hrs prn mod pain and 10 mg q 4 hrs prn severe pain.sched uled APAP 1000 mg TID(Was supposed to be on Lovenox for DVT prophylaxi s, but wasn't on either recent d/c summary, will hold off due to recent heme+ stool.cont Plavix and ASA, not really adequate for DVT prophylaxi s, but hesitate to increase ASA or add other med due to recent GI bleed and transfusio ns.)PT/OT for strengthen ing, balance, gait training, safety and function.f all precaution s.Monitor for safety.F/U with ortho as planned. Anemia 398036989 D62 D64.89 Mild at baseline likely due to chronic disease and FTT.Had acute drop between 09/18 and 09/19 now improved sp transfusio n, but had heme + stool.Iron was low with nl ferritin (likely due to inflammati on)contFeS O4 325 mg qd.Will need f/u with GI if hgb drops again.omep razole 40 mg po daily x 6 weeks and reeval added on ito r labs. Gastroesop hageal reflux disease [id number] K21.9 With recent heme+ stool.GI felt no urgent need for endoscopy unless hgb drops again.Curr ently stable and with no sxs.due to heme positive stools and need for transfusio n recently will start omeprazole 40 mg po daily x 6 weeks started on 10/01Monito r closely, labs stable this week Major depr essive disorder [id number] F32.89 In hx, followed by [facility] , on no meds. worker at bedside without concerns todayMood good today.Leela tor mood.Consu lt psych Adult fail ure to thrive syndrome 938232710 R62.7 Reported hx of wt loss and poor po intake at home.Encou rage po intake here (says she doesn't like the food).diet marlena consulted, Consider supplement s.Monitor wts and labs.Bettye bernardo consult. Cerebrovas cular accident [id number] I63.89 With multiple old CVAs on MRI from 09/2022No recent sxs.Contin ueASA 81 mg qdatorvast atin 20 mg qd.Monitor for new sxs. Asthenia 43226230 R53.1 PT/OT as above.Enco urage activity. Type 2 erlin betes mellitus 48580198 E11.9 stableLast HgA1C I can find was 6.0 in 02/2023.Fin gersticks inpt with only one reading >200.Diet controlled at home.Monit or prn Osteoporosis 62566212 M8 1.0 Continueca lcium 500 mg qdvitamin D 1000 IU qd and level with next labs.(pend ing)Monito r as outpt. Hypothyroidism 16096877 E03.8 Last TSH in system from 09/2022 was nl.Continu elevothyro xine 88 mcg qdTSH with next labs(pendi ng). Hypertensive disorder 38 603608 I10 In good control, stablecont atenolol 50 mg qdlisinopr il 20 mg qd.Monitor BP and labs. Chronic constipation 236 912100 K59.09 Continue bowel meds as ordered.Mo nitor bowel function. Developmental delay 9962 [address]26 F[address]Able to make her own decisions. SS to f/u with outpt providers and [employer] to plan d/c, Urinary tr act infectious disease 20008420 N39.0 She remains with underwood in place after failed voiding trial on the weekend.A urinalysis was sent and culture back with >100,000 ecoli susceptibl e to cipro.Will start cipro 500 mg po bid x 5 days with probiotic. [id number] Alyssa Birch NP [address] [address] 10/11/2023 09:28:00 10/18/2023 11:03:58 Urinary tract infectious disease 20647070 N39.0 resolvingS he remains with underwood in place after failed voiding trial on the weekend.A urinalysis was sent and culture back with >100,000 ecoli susceptibl e to cipro.comp leted cipro 500 mg po bid x 5 dayson 10/09 with probiotic. cont to monitor for reoccurenc e Retention of urine 39994 4002 R33.8 she failed a voiding trial in the hospital prior to being transferre d to rehabfoley placed for retention with 2 failed trials10/10 remove underwood today for irritation /paincontt amulosin 0.4mg po dailymonit or for distention or s/s of infection Fracture o f neck of femur 0818394 S72.042D S/P hemiarthro plasty on 09/16. of note:10/03 [facility] appt rec:encour age pain medication prior to therapy for maximizati on fo PTOOB w all meals to encourage mobilityPT orders; WBAT, posterior precaution s, gait training, rom, strength sp left hip hemifu in [address] manning (approx 11/03)nsg sched cont10/10 dc oxycodone 5 mg po bidcontoxy codone 5 mg q 4 hrs prn mod pain and 10 mg q 4 hrs prn severe pain.APAP 1000 mg TID(Was supposed to be on Lovenox for DVT prophylaxi s, but wasn't on either recent d/c summary, will hold off due to recent heme+ stool.Plav ix and ASA, not really adequate for DVT prophylaxi s, but hesitate to increase ASA or add other med due to recent GI bleed and transfusio ns.)PT/OT for strengthen ing, balance, gait training, safety and function.f all precaution s.Monitor for safety.F/U with ortho as planned. Anemia 043549353 D62 D64.89 Mild at baseline likely due to chronic disease and FTT.Had acute drop between 09/18 and 09/19 now improved sp transfusio n, but had heme + stool.Iron was low with nl ferritin (likely due to inflammati on)contFeS O4 325 mg qd.Will need f/u with GI if hgb drops again.omep razole 40 mg po daily x 6 weeks and reeval (added on 10/03)Monit or labs.10/10 cbc with diff and tsh ordered for next monday Gastroesop hageal reflux disease 335346531 K21.9 With recent heme+ stool.GI felt no urgent need for endoscopy unless hgb drops again.Curr ently stable and with no sxs.due to heme positive stools and need for transfusio n recentlyco ntomeprazo le 40 mg po daily x 6 weeks started on 10/01Monito r closely, labs stable this week Major depr essive disorder 769484953 F32.89 In hx, followed by [facility] , on no meds. worker at bedside without concerns todayMood good today.Leela tor mood.Consu lt psych Adult fail ure to thrive syndrome 519963123 R62.7 Reported hx of wt loss and poor po intake at home.Encou rage po intake here (says she doesn't like the food).diet marlena consulted, Consider supplement s.Monitor wts and labs.Bettye bernardo consult. 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 Asthenia 42050131 R53.1 PT/OT as above.Enco urage activity. Type 2 erlin betes mellitus 79903926 E11.9 stableLast HgA1C I can find was 6.0 in 02/2023.Fin gersticks inpt with only one reading >200.Diet controlled at home.Monit or prn Osteoporosis 64868570 M8 1.0 Continueca lcium 500 mg qdvitamin D 1000 IU qd and level with next labs.(pend ing)Monito r as outpt. Hypothyroidism 23119406 E03.8 Last TSH in system from 09/2022 was nl.Continu elevothyro xine 88 mcg qdTSH with next labs(pendi ng for next week) Hypertensive disorder 38 159659 I10 In good control, stablecont atenolol 50 mg qdlisinopr il 20 mg qd.Monitor BP and labs. Developmental delay 0572 42008 F70 [address] services [address].Able to make her own decisions at this time.SS to f/u with outpt providers and [employer] to plan d/c, [id number] Alyssa Birch NP [address] [address] 10/12/2023 08:03:03 10/18/2023 11:30:23 Urinary tract infectious disease 67699795 N39.0 resolvingS he remains with underwood in place after failed voiding trial on the weekend.A urinalysis was sent and culture back with >100,000 ecoli susceptibl e to cipro.comp leted cipro 500 mg po bid x 5 days on 10/09 with probiotic. cont to monitor for reoccurenc e Retention of urine 27466 4002 R33.8 she failed a voiding trial in the hospital prior to being transferre d to rehabfoley placed for retention with 2 failed trials10/10 remove underwood today for irritation /pain10/11 underwood reinserted for distension and 1600 cc removed via straight cath, then 1000cccont tamulosin 0.4mg po daily10/11 [address] [facility] urology for urinary retentionm onitor for distention or s/s of infection Fracture o f neck of femur 4737479 S72.042D S/P hemiarthro plasty on 09/16. of note:10/03 [facility] appt rec:encour age pain medication prior to therapy for maximizati on fo PTOOB w all meals to encourage mobilityPT orders; WBAT, posterior precaution s, gait training, rom, strength sp left hip hemifu in [address] manning (approx 11/03)nsg sched contoxycod one 5 mg q 4 hrs prn mod pain and 10 mg q 4 hrs prn severe pain.APAP 1000 mg TID(Was supposed to be on Lovenox for DVT prophylaxi s, but wasn't on either recent d/c summary, will hold off due to recent heme+ stool.Plav ix and ASA, not really adequate for DVT prophylaxi s, but hesitate to increase ASA or add other med due to recent GI bleed and transfusio ns.)PT/OT for strengthen ing, balance, gait training, safety and function.f all precaution s.Monitor for safety.F/U with ortho as planned. Anemia 140166745 D62 D64.89 Mild at baseline likely due to chronic disease and FTT.Had acute drop between 09/18 and 09/19 now improved sp transfusio n, but had heme + stool.Iron was low with nl ferritin (likely due to inflammati on)contFeS O4 325 mg qd.Will need f/u with GI if hgb drops again.omep razole 40 mg po daily x 6 weeks and reeval (added on 10/03)Monit or labs.10/10 cbc with diff and tsh ordered for next monday Gastroesop hageal reflux disease 238825149 K21.9 With recent heme+ stool.GI felt no urgent need for endoscopy unless hgb drops again.Curr ently stable and with no sxs.due to heme positive stools and need for transfusio n recentlyco ntomeprazo le 40 mg po daily x 6 weeks started on 10/01Monito r closely, labs stable this week Major depr essive disorder 714217858 F32.89 In hx, followed by [facility] , on no meds. worker at bedside without concerns todayMood good today.Leela tor mood.Consu lt psych Adult fail ure to thrive syndrome 850972312 R62.7 Reported hx of wt loss and poor po intake at home.Encou rage po intake here (says she doesn't like the food).diet marlena consulted, Consider supplement s.Monitor wts and labs.Bettye bernardo consult. Cerebrovas cular accident [id number] I63.89 With multiple old CVAs on MRI from 09/2022No recent sxs.Contin ueASA 81 mg qdatorvast atin 20 mg qd.Monitor for new sxs. Asthenia 48215588 R53.1 PT/OT as above.Enco urage activity. Type 2 erlin betes mellitus 75443424 E11.9 stableLast HgA1C I can find was 6.0 in 02/2023.Fin gersticks inpt with only one reading >200.Diet controlled at home.Monit or prn Osteoporosis 54045884 M8 1.0 Continueca lcium 500 mg qdvitamin D 1000 IU qd and level with next labs.(pend ing)Monito r as outpt. Hypothyroidism 59816794 E03.8 Last TSH in system from 09/2022 was nl.Continu elevothyro xine 88 mcg qdTSH with next labs(pendi ng for next week) Hypertensive disorder 38 892786 I10 In good control, stablecont atenolol 50 mg qdlisinopr il 20 mg qd.Monitor BP and labs. Developmental delay 2482 34556 F70 Has services in [address].Able to make her own decisions at this time.SS to f/u with outpt providers and [employer] to plan d/c, Mass of ovary 256475073 R19.09 has been dx with ovarian mass 2022, non surgical and follows with dr mojica. noted as a cyst in h & p in obgyn note from 2022she remains asymptomat ic with cystcont to monitor and fu with obgyn if further concerns [id number] Alyssa Birch NP [address] [address] 10/20/2023 09:07:02 10/24/2023 09:40:46 Mass of ovary 000630332 R19.09 has been dx with ovarian mass 2022, non surgical and follows with dr mojica. noted as a cyst in h & p in obgyn note from 2022she remains asymptomat ic with cyst, however this bothers her with foleySeen by dr garcia team and rec:10/19 starttizan idine 2mg po tid for spasms/horace n(per pain service rec)change underwood to leg bag during day and switch to bag at nightcontt o monitor and fu with obgyn if further concerns Retention of urine 08445 4002 R33.8 she failed 3 voiding trials in the hospital [facility]change underwood to leg bag during day and switch to bag at nighttamul osin 0.4mg po daily10/11 fu with [facility] urology for urinary retention, awaiting appt nsg aware today onitor for distention or s/s of infection Urinary tr act infectious disease 02250765 N39.0 resolvingS he remains with underwood in place after failed voiding trial on the weekend.A urinalysis was sent and culture back with >100,000 ecoli susceptibl e to cipro.comp leted cipro 500 mg po bid x 5 days on 10/09 with probiotic. cont to monitor for reoccurenc e Fracture o f neck of femur 8726639 S72.042D S/P hemiarthro plasty on 09/16. of note:10/03 [facility] appt rec:encour age pain medication prior to therapy for maximizati on fo PTOOB w all meals to encourage mobilityPT orders; WBAT, posterior precaution s, gait training, rom, strength sp left hip nica*fu in [address] manning (approx 11/03)nsg sched contoxycod one 5 mg q 4 hrs prn pain, uses occAPAP 1000 mg TIDPlavix and ASA, not really adequate for DVT prophylaxi s, but hesitate to increase ASA or add other med due to recent GI bleed and transfusio ns.)PT/OT for strengthen ing, balance, gait training, safety and function.f all precaution s.Monitor for safety.F/U with ortho as planned. Anemia 080623040 D62 D64.89 Mild at baseline likely due to chronic disease and FTT.Had acute drop between 09/18 and 09/19 now improved sp transfusio n, but had heme + stool.Iron was low with nl ferritin (likely due to inflammati on)contFeS O4 325 mg qd.Will need f/u with GI if hgb drops again. stable currentlyo meprazole 40 mg po daily x 6 weeks and reeval (added on 10/03)Monit or labs.10/16 labs stable as above Gastroesop hageal reflux disease 936086866 K21.9 With recent heme+ stool.GI felt no urgent need for endoscopy unless hgb drops again.Curr ently stable and with no sxs.due to heme positive stools and need for transfusio n recentlyco ntomeprazo le 40 mg po daily x 6 weeks started on 8/19Monito r closely, labs stable this week Major depr essive disorder 046503668 F32.89 In hx, followed by [facility] , on no meds. worker at bedside without concerns todayMood good today.Leela tor mood.Consu lt psych Adult fail ure to thrive syndrome 397186076 R62.7 Reported hx of wt loss and poor po intake at home.Encou rage po intake here (says she doesn't like the food).diet marlena consulted, Consider supplement s.Monitor wts and labs.Bettye bernardo consult. Cerebrovas cular accident [id number] I63.89 With multiple old CVAs on MRI from 09/2022No recent sxs.Contin ueASA 81 mg qdatorvast atin 20 mg qd.Monitor for new sxs. Asthenia 98280258 R53.1 PT/OT as above.Enco urage activity. Type 2 erlin betes mellitus 13731139 E11.9 stableLast HgA1C I can find was 6.0 in 02/2023.Fin fangicks inpt with only one reading >200.Diet controlled at home.Monit or prn Osteoporosis 91931760 M8 1.0 Continueca lcium 500 mg qdvitamin D 1000 IU qd and level with next labs.(pend ing)Monito r as outpt. Hypothyroidism 60476483 E03.8 Last TSH in system from 09/2022 was nl.Continu elevothyro xine 88 mcg qdTSH stable at 3.94 on 93monitor prn Hypertensive disorder 38 352452 I10 In good control, stablecont atenolol 50 mg qdlisinopr il 20 mg qd.Monitor BP and labs. Developmental delay 3302 49000 F70 [address].Able to make her own decisions at this time.SS to f/u with outpt providers and [employer] to plan d/c, [id number] Alyssa Birch NP [address] [address] 10/23/2023 08:12:07 10/25/2023 09:54:21 Mass of ovary 895327537 R19.09 has been dx with ovarian mass 2022, non surgical and follows with dr mojica. noted as a cyst in h & p in obgyn note from 2022she remains asymptomat ic with cyst, however this bothers her with foleySeen by dr garcia team and rec:10/19 starttizan idine 2mg po tid for spasms/horace n(per pain service rec)10/22 remove underwood per pt request to monitorfu with obgyn if further concernsMR I outpt fu rec at ER -will defer to onc Dr Mojica as she follows her for this Retention of urine 39988 4002 R33.8 she failed 3 voiding trials in the hospital prior to being transferre d to rehab10/22 refuses to have underwood left in today, will remove with voiding trial and no bladder scan avail, void in hat and record, straight cath if no urine outpt in 12 hours and replace underwood if greater than 350cctamul osin 0.4mg po daily fu with [facility] urology for urinary retention, nsg to schedulemo nitor for distention or s/s of infection Urinary tr act infectious disease 72074534 N39.0 resolvedco mpleted cipro 500 mg po bid x 5 days on 10/09 with probiotic. cont to monitor for reoccurenc e Fracture o f neck of femur 4482279 S72.042D S/P hemiarthro plasty on 09/16. of note:10/03 Ortho [facility] appt rec:encour age pain medication prior to therapy for maximizati on fo PTOOB w all meals to encourage mobilityPT orders; WBAT, posterior precaution s, gait training, rom, strength sp left hip nica*fu in [address] manning (approx 11/03)nsg sched contoxycod one 5 mg q 4 hrs prn pain, uses occAPAP 1000 mg TIDPlavix and ASA, not really adequate for DVT prophylaxi s, but hesitate to increase ASA or add other med due to recent GI bleed and transfusio ns.)PT/OT for strengthen ing, balance, gait training, safety and function.f all precaution s.Monitor for safety.F/U with ortho as planned. Anemia 968768888 D62 D64.89 Mild at baseline likely due to chronic disease and FTT.Had acute drop between 09/18 and 09/19 now improved sp transfusio n, but had heme + stool.Iron was low with nl ferritin (likely due to inflammati on)contFeS O4 325 mg qd.Will need f/u with GI if hgb drops again. stable currentlyo meprazole 40 mg po daily x 6 weeks and reeval (added on 10/03)Monit or labs. Gastroesop hageal reflux disease 800584359 K21.9 With recent heme+ stool.GI felt no urgent need for endoscopy unless hgb drops again.Curr ently stable and with no sxs.due to heme positive stools and need for transfusio n recentlyco ntomeprazo le 40 mg po daily x 6 weeks started on 10/01Monito r closely, labs stable this week Major depr essive disorder 109471157 F32.89 In hx, followed by [facility] , on no meds. worker at bedside without concerns todayMood good today.Leela tor mood.Consu lt psych Adult fail ure to thrive syndrome 977452587 R62.7 Reported hx of wt loss and poor po intake at home.Encou rage po intake here (says she doesn't like the food).diet marlena consulted, Consider supplement s.Monitor wts and labs.Bettye bernardo consult. Cerebrovas cular accident [id number] I63.89 With multiple old CVAs on MRI from 09/2022, mild crooked smile at baselineNo recent sxs.no changes to neuros, at baselineCo ntinueASA 81 mg qdatorvast atin 20 mg qd.Monitor for new sxs. Asthenia 77535157 R53.1 PT/OT as above.Enco urage activity. Type 2 erlin betes mellitus 26269477 E11.9 stableLast HgA1C I can find was 6.0 in 02/2023.Fin gersticks inpt with only one reading >200.Diet controlled at home.Monit or prn Osteoporosis 52797327 M8 1.0 Continueca lcium 500 mg qdvitamin D 1000 IU qd and level with next labs.(pend ing)Monito r as outpt. Hypothyroidism 75611131 E03.8 Last TSH in system from 09/2022 was nl.Continu elevothyro xine 88 mcg qdTSH stable at 3.94 on 3monitor prn Hypertensive disorder 38 805705 I10 In good control, stablecont atenolol 50 mg qdlisinopr il 20 mg qd.Monitor BP and labs. Developmental delay 3682 79383 F70 Has services in [address].Able to make her own decisions at this time.SS to f/u with outpt providers and [employer] to plan d/c, Hypokalemia 96873974 E87 .6 no info on dc summary of supplement and planmonito r labs weekly 10/22 addendu m labs with k 3.2 will treat with 40 meq kcl tid x 3 doses and add 40 meq po qd on and . Constipation 85779543 K5 9.00 see hipnotable stool burden on CT scan in ER and disimpacte d9/9cont miralax dailyincre ase colace to 100 mg po bidadd senna dailylactu lose qod prnmonitor [id number] Alyssa Birch NP [address] [address] 10/25/2023 14:13:06 10/26/2023 13:21:55 Constipation 20954429 K59.00 resolving with recent er visit with notable stool burden on CT scan and disimpacte d9/9cont miralax dailyincre ase colace to 100 mg po bidadd senna dailylactu lose qod pr cont above plan, she is aware stooling daily is goalmonito r for need to adjust Hypokalemia 89551858 E87 .6 no info on dc summary of supplement and planmonito r labs weekly 10/22 k 3.2 will treated with 40 meq kcl tid x 3 doses and started on 40 meq po qd on and . labs weekly10/24 cont above plan Mass of ovary 202090342 R19.09 has been dx with ovarian mass 2022, non surgical and follows with dr mojica. noted as a cyst in h & p in obgyn note from 2022she remains asymptomat ic with cyst, however this bothers her with foleySeen by dr garcia team and rec:10/19 starttizan idine 2mg po tid for spasms/horace n(per pain service rec)10/22 remove underwood per pt request10/14 1 voiding good amounts and no concerns todayto monitorfu with obgyn if further concernsMR I outpt fu rec at ER -will defer to onc Dr Mojica as she follows her for this Retention of urine 75108 4002 R33.8 she failed 3 voiding trials in the hospital prior to being transferre d to rehab10/22 refuses to have underwood left in today, will remove with voiding trial and no bladder scan avail, void in hat and record, straight cath if no urine outpt in 12 hours and replace underwood if greater than 350cctamul osin 0.4mg po daily 10/24 voiding good amounts and no concerns todayto monitor fu with [facility] urology for urinary retention, nsg to schedulemo nitor for distention or s/s of infection Fracture o f neck of femur 8286489 S72.042D S/P hemiarthro plasty on 09/16. of note:10/03 [facility] appt rec:encour age pain medication prior to therapy for maximizati on fo PTOOB w all meals to encourage mobilityPT orders; WBAT, posterior precaution s, gait training, rom, strength sp left hip nica*fu in [address] manning (approx 11/03)nsg sched contoxycod one 5 mg q 4 hrs prn pain, uses occAPAP 1000 mg TIDPlavix and ASA, not really adequate for DVT prophylaxi s, but hesitate to increase ASA or add other med due to recent GI bleed and transfusio ns.)PT/OT for strengthen ing, balance, gait training, safety and function.f all precaution s.Monitor for safety.F/U with ortho as planned. Anemia 221792386 D62 D64.89 Mild at baseline likely due to chronic disease and FTT.Had acute drop between 09/18 and 09/19 now improved sp transfusio n, but had heme + stool.Iron was low with nl ferritin (likely due to inflammati on)contFeS O4 325 mg qd.Will need f/u with GI if hgb drops again. stable currentlyo meprazole 40 mg po daily x 6 weeks and reeval (added on 10/03)Monit or labs. Gastroesop hageal reflux disease 997188906 K21.9 With recent heme+ stool.GI felt no urgent need for endoscopy unless hgb drops again.Curr ently stable and with no sxs.due to heme positive stools and need for transfusio n recentlyco ntomeprazo le 40 mg po daily x 6 weeks started on 10/01Monito r closely, labs stable this week Major depr essive disorder 798279394 F32.89 In hx, followed by [facility] , on no meds. worker at bedside without concerns todayMood good today.Leela tor mood.Consu lt psych Adult fail ure to thrive syndrome 709500396 R62.7 Reported hx of wt loss and poor po intake at home.Encou rage po intake here (says she doesn't like the food).diet ician consulted, Consider supplement s.Monitor wts and labs.Bettye bernardo consult. Cerebrovas cular accident [id number] I63.89 With multiple old CVAs on MRI from 09/2022, mild crooked smile at baselineNo recent sxs.no changes to neuros, at baselineCo ntinueASA 81 mg qdatorvast atin 20 mg qd.Monitor for new sxs. Asthenia 21071153 R53.1 PT/OT as above.Enco urage activity. Type 2 erlin betes mellitus 84195131 E11.9 stableLast HgA1C I can find was 6.0 in 02/2023.Fin gersticks inpt with only one reading >200.Diet controlled at home.Monit or prn Osteoporosis 97162398 M8 1.0 Continueca lcium 500 mg qdvitamin D 1000 IU qd and level with next labs.(pend ing)Monito r as outpt. Developmental delay 2482 23573 F70 [address].Able to make her own decisions at this time.SS to f/u with outpt providers and [employer] to plan d/c, [id number] Alyssa Birch NP [address] [address] 11/01/2023 11:54:51 11/06/2023 14:22:19 Retention of urine 922638133 R33.8 she failed 3 voiding trials in the hospital prior to being transferre d to rehabfoley removed and now voiding without difficulty conttamulo sin 0.4mg po daily(scri pt given)fu with [facility] for urinary retention ouptmonito r for distention or s/s of infection Constipation 30828293 K5 9.00 resolving with recent er visit with notable stool burden on CT scan and disimpacte d in ER with increased laxativesc ontmiralax dailycolac e to 100 mg po bidsenna dailylactu lose qod prnmonitor for need to adjust Hypokalemia 91097644 E87 .6 with hypokalemi a repletedco ntpotassiu m 40 meq on and mo nitor with pcp outpt with adjustment s Mass of ovary 008816073 R19.09 has been dx with ovarian mass 2022, non surgical and follows with dr mojica. noted as a cyst in h & p in obgyn note from 2022voidin g good amounts and no concerns nowfu with obgyn if further concerns outptMRI outpt fu rec at ER -will defer to onc Dr Mojica as she follows her for this Fracture o f neck of femur 2076342 S72.042D S/P hemiarthro plasty on 09/16.10/03 [facility] appt rec:encour age pain medication prior to therapy for maximizati on fo PTOOB w all meals to encourage mobilityPT orders; WBAT, posterior precaution s, gait training, rom, strength sp left hip nica contdc oxycodone 5 mg q 4 hrs prn pain, uses occchange tyl to 650 mg po q 8 hours prnPlavix and ASA, not really adequate for DVT prophylaxi s, but hesitate to increase ASA or add other med due to recent GI bleed and transfusio ns.)PT/OT for strengthen ing, balance, gait training, safety and function prn outptfall precaution s.Monitor for safety outpt with home servicesF/ U with ortho as planned micah outpt Anemia [id number] D62 D64.89 Mild at baseline likely due to chronic disease and FTT.Had acute drop between 09/18 and 09/19 now improved sp transfusio n, but had heme + stool.Iron was low with nl ferritin (likely due to inflammati on)contFeS O4 325 mg qd.Will need f/u with GI if hgb drops again. stable currentlyo meprazole 40 mg po daily x 6 weeks and reeval (added on 10/03)Monit or labs and fu with pcp outpt Gastroesop hageal reflux disease [id number] K21.9 With recent heme+ stool.GI felt no urgent need for endoscopy unless hgb drops again.Curr ently stable and with no sxs.due to heme positive stools and need for transfusio n recentlyco ntomeprazo le 40 mg po daily x 6 weeks started on 10/01Monito r closely, labs stable this week and fu with pcp outpt for omeprazole need. Major depr essive disorder [id number] F32.89 In hx, followed by [facility] ,Mood good today.Leela tor mood.Consu lt psych outpt prn Adult fail ure to thrive syndrome [id number] R62.7 Reported hx of wt loss and poor po intake at home.she has lost 5 lbs total since heresupple ments bid for weight gainmonito r outpt with pcp Cerebrovas cular accident [id number] I63.89 With multiple old CVAs on MRI from 09/2022, mild crooked smile at baselineNo recent sxs.Contin ueASA 81 mg qdatorvast atin 20 mg qd.Monitor for new sxs./tee es outpt with pcp Asthenia [id number] R53.1 PT/OT as above outpt prnEncoura ge activity outpt Type 2 erlin betes mellitus [id number] E11.9 stableLast HgA1C I can find was 6.0 in 02/2023.BS prnDiet controlled at home.Monit or prn outpt Osteoporosis [id number] M8 1.0 Continueca lcium 500 mg qdvitamin D 1000 IU qdMonitor as outpt. with pcp Developmental delay [id number].Able to make her own decisions at this time.she with dc with service for DD Health Concerns Section Related Observation LastModified by Organization Detai ls LastModified Time None Recorded Concern Status LastModified by Organization Details LastModified Time None Recorded Advance Directives Directive Y: Payers Encounter Date Sequence Insurance Name Policy Number Policy Cunningham Covered Member ID Cunningham Member ID Guarantor Name 10/12/2023 1 [place] [employer] Briseida Reich [id number] Briseida Reich 10/12/2023 2 [place] [facility] Briseida Reich [id number] Briseida Reich 10/20/2023 1 [place] [employer] Briseida Reich [id number] Briseida Reich 10/20/2023 2 [place] [facility] Briseida Reich [id number] Briseida Reich 10/23/2023 1 [place] [facility] Briseida Reich [id number] Briseida Romerom 10/23/2023 2 [place] [facility] Briseida Reich [id number] Briseida Reich 10/25/2023 1 [place] [facility] Briseida Romerom [id number] Briseida Romerom 10/25/2023 2 [place] [facility] Briseida Reich [id number] Briseida Reich 11/01/2023 1 [place] [facility] Briseida Romerom [id number] Briseida Romerom 11/01/2023 2 [place] [facility] Briseida Reich [id number] Briseida Reich Notes Date Note Type Note Provider Name and Address Organization Details Recorded Time 10/12/2023 text/html Briseida is seen f or an acute visit. She is a 78 yo woman with mild DD who is here for rehab after 2 recent acute hospitalizations, first for left hip fx (s/p hemiarthroplasty) and 2nd for severe anemia, ?post-op vs GI bleed now back at rehab since 09/22/23 for continued care and rehab seen for an acute rounding visit today. 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 ), AODM, GERD, anemia, ? hx of GI bleed, CHF pEF, ovarian mass since 2007 being followed, HLD, thyroid nodules, developmental delay, hypothyroidism, mild/mod AR, OP, hx of urinary retention, and depression. Pt had underwood reinserted this am. She had underwood removed yesterday afternoon and developed abd pain and distenstion and this is her 3rd voiding trial. She was brought to bathroom however couldn't void. She ultimately required underwood to be reinserted after 1600cc straight cath, then 1000 cc out per nursing with abd pain and distension. Nursing also reports having a cyst like area in vagina. Pt reports she was seen by Dr Mojica for an 8cm cyst and it was secured with mesh, but unable to have surgical removal due to age. A small lesion to right outer labia noted. Limited exam without proper bed and equipment, however seems to have a pink cyst like structure to left inner wall of vagina, no obvious mesh or discharge noted, no pain or complication noted with the cyst. Per 10/26/[address] Mojica at [facility] oncology/obgyn she had a left adnexa cyst which measured 8.1 x 6 x 5.6 cm. No surgery was required at this time. A repeat u/s can be considered if needed. of note: A urinalysis was sent and culture back with >100,000 ecoli susceptible to cipro. She was started on cipro 500 mg po bid completed on 10/09 x 5 days total with probiotic. She has failed at least 2 prior voiding trials. Alyssa Birch, DUSTIN [address], [address], [place], [address], [facility] 10/12/2023 08:57:43 10/20/2023 text/html Briseida is a 78 y o woman with mild DD who is here for rehab after 2 recent acute hospitalizations, first for left hip fx (s/p hemiarthroplasty) and 2nd for severe anemia, ?post-op vs GI bleed at rehab here since 09/22/23 for continued care and rehab seen for a 30 day routine rounding visit. 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 ), AODM, GERD, anemia, ? hx of GI bleed, CHF pEF, ovarian mass since 2007 being followed, HLD, thyroid nodules, developmental delay, hypothyroidism, mild/mod AR, OP, hx of urinary retention, and depression. On exam, she is alert and states she would like to go home soon and knows she needs to have more therapy to be independent again. Her hip incision is well healed, no s/s of infection. She has pain at underwood site and was seen by Dr Garcia with recommendation to start tizanidine for the pain. Will also change to leg beg during the day and larger bag at night for comfort. Pt had underwood reinserted.. She has failed three voiding trials here. She ultimately required underwood to be reinserted after 1600cc straight cath, then 1000 cc out per nursing with abd pain and distension. A urinalysis was sent and culture back with >100,000 ecoli susceptible to cipro. She completed cipro 500 mg po bid on 10/09 x 5 days total with probiotic and 3rd voiding trial was done after abx completed. She is pending a urology consult. Nsg to book . Of note: she continues with baseline cyst which is bothered by the underwood. Upon review of [facility] records. Per 10/26/[address] Mojica at [facility] oncology/obgyn she had a left adnexa cyst which measured 8.1 x 6 x 5.6 cm. No surgery was required at this time. A repeat u/s can be considered if needed. Overall, Briseida montelongo has been stable since back here after her transfusion and continues to work with therapy and getting stronger daily. She is not able to get up on her own at this point. Weight on 09/26 and 09/27 stable on 119 and due for another weight soon. Alyssa Birch, DUSTIN [address] [facility], [address], [place], [address], [facility] 10/20/2023 09:41:58 10/23/2023 text/html Pt is a 78 yo wo man with mild DD who is here for rehab after 2 recent acute hospitalizations, first for left hip fx (s/p hemiarthroplasty) and 2nd for severe anemia, ?post-op vs GI bleed at rehab here since 09/22/23 for continued care and rehab seen for an acute rounding visit. She went to the ER on on 10/21 after calling 911 herself for her abd pain and burning sensation and returned to the facility on 10/22 dx with hypokalemia and obstipation. ER workup included CT scan showing a large volume stool in seen in the distal rectal wall thickening with mild inflammatory changes which may reflect early stercoral colitis. Large left adnexal cystic mass with peripheral calcification measures 7.9 cm, unchanged. Recommend MRI pelvis outpt. Ultimately she was manually disimpacted and enemas given to relieve stool burden and dc'd on senna daily, increased colace to bid, and lactulose prn qod if no stool, miralax continued. No info about the treatment or plan for the hypokalemia in dc summary. She returned to rehab facility around 12:30 am. She continues to work with therapy daily and hip incision is well healed. addendum labs with k 3.2 will treat with 40 meq kcl tid x 3 doses and add 40 meq po qd on and . On exam, She insists to have underwood removed today and states she doesn't want to wait for the urology appt as she feels the retention was from the stool. Will trial underwood removal today as requested. She has a urology appt scheduled as this is her 4th voiding trial here. No abd pain, distention, nausea, vomiting, or other concerns today. She states her voice is slurred from screaming before her hospital visit, however is clear and has no weakness to any extremities, or changes today. She denies any deficits this am and at baseline with mild crooked smile. States underwood still bothers her cyst today. 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 ), AODM, GERD, anemia, ? hx of GI bleed, CHF pEF, ovarian mass since 2007 being followed, HLD, thyroid nodules, developmental delay, hypothyroidism, mild/mod AR, OP, hx of urinary retention, and depression. Of note: she continues with baseline cyst which is bothered by the underwood. Upon review of [facility] records. Per 10/26/[address] Mojica at [facility] oncology/obgyn she had a left adnexa cyst which measured 8.1 x 6 x 5.6 cm. No surgery was required at this time. A repeat u/s can be considered if needed. Alyssa Birch NP [address], [address], [place], [address], [facility] 10/23/2023 16:15:20 10/25/2023 text/html Briseida is a 78 y o woman with mild DD who is here for rehab after 3 recent acute hospitalizations, first for left hip fx (s/p hemiarthroplasty) and 2nd for severe anemia, ?post-op hip vs GI bleed, and most recently for constipation with adnexal cystic mass and hypokalemia. Note she has been at rehab here since 09/22/23 or continued care and rehab seen for an acute rounding visit. 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 ), AODM, GERD, anemia, ? hx of GI bleed, CHF pEF, ovarian mass since 2007 being followed, HLD, thyroid nodules, developmental delay, hypothyroidism, mild/mod AR, OP, hx of urinary retention, and depression. Her underwood was removed on 10/23/23 and she reports no pain, distension or difficulty urinating since removal of underwood on 10/22. of note; ER workup included CT scan showing a large volume stool in seen in the distal rectal wall thickening with mild inflammatory changes which may reflect early stercoral colitis. Large left adnexal cystic mass with peripheral calcification measures 7.9 cm, unchanged. Recommend MRI pelvis outpt. Ultimately she was manually disimpacted and enemas given to relieve stool burden and dc'd on senna daily, increased colace to bid, and lactulose prn qod if no stool, miralax continued. No info about the treatment or plan for the hypokalemia in dc summary. She returned to rehab facility around 12:30 am. She continues to work with therapy daily and hip incision is well healed. k 3.2 treated with 40 meq kcl tid x 3 doses and add 40 meq po qd on and . On exam, Kelly is during much better and denies any pain, difficulty urinating or stooling,. She states she shouldn't be stooling daily and this [employer] SUPPORT DEVELOPER educates her on the need to have stools daily to clean out and then decreasing laxatives going forward if warranted. Alyssa Birch, DUSTIN [address] [facility], [address], [place], [address], [facility] 10/25/2023 19:04:40 11/01/2023 text/html Pt is seen for a discharge summary today. Briseida is a 78 yo woman with mild DD who is here for rehab after 3 recent acute hospitalizations, first for left hip fx (s/p hemiarthroplasty) and 2nd for severe anemia, ?post-op hip vs GI bleed, and most recently for constipation with adnexal cystic mass and hypokalemia. Note she has been at rehab here since 09/22/23 and now ready for d/c. 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 ), AODM, GERD, anemia, ? hx of GI bleed, CHF pEF, ovarian mass since 2007 being followed, HLD, thyroid nodules, developmental delay, hypothyroidism, mild/mod AR, OP, hx of urinary retention, and depression. 78 yo female with pmh CVA in 2022 treated with TPA on aspirin and plavix, HTN, hypothyroidism, urinary retention, anemia, and CHF presented to [facility] for left hip pain after mechanical fall and underwendt left hemiarthroplasty on 09/17/23 and was transferred to [facility] on 09/19/23 for continued care and rehab. She was readmitted to hospital for acute drop in H/H between 09/18 and 09/19.Now stable since transfusion inpt, but had heme + stool and recent hemiarthroplasty. W/U not done inpt as hgb stabilized. Iron was low with nl ferritin (likely due to inflammation) and was started on FeSO4 325 mg qd. She had an ER workup for abd pain which included CT scan showing a large volume stool in seen in the distal rectal wall thickening with mild inflammatory changes which may reflect early stercoral colitis. Large left adnexal cystic mass with peripheral calcification measures 7.9 cm, unchanged. Recommend MRI pelvis outpt. Ultimately she was manually disimpacted and enemas given to relieve stool burden and dc'd on senna daily, increased colace to bid, and lactulose prn qod if no stool, miralax continued. No info about the treatment or plan for the hypokalemia in dc summary. A urinalysis was sent and culture back with >100,000 ecoli susceptible to cipro. She was started on cipro 500 mg po bid completed on 10/09 x 5 days total with probiotic. She has failed at least 2 prior voiding trials. Her underwood was removed on 10/23/23 and she reports no pain, distension or difficulty urinating since removal of underwood on 10/22. She had prior failed 3 voiding trials. She was started on tamulosin in the hospital for this and should fu outpt with urology or pcp for need of tamulosin in future. Also has adnexal mass which is not new and follows outpt. She continues to work with therapy daily and hip incision is well healed and is ready for d/c. A script for a cane was given per request. Her potassium was repleted in hospital and here on a few occassions and started on 40 meq kcl po on and and now corrected. She will need fu for her potassium levels. On exam, pt is smiling, denies pain, and is excited to go home with services. She is in NAD and her left hip is c/d/i and well healed. She will dc with services for home care as prior and vna to support. Alyssa Birch NP [address], [address], [place], [address], [facility] - [facility] 11/01/2023 12:48:40 OBGyn Episode No OBEpisode recorded.
[2024-05-19 05:13] LABS: Troponin-I High Sensitivity < 2.7 ng/L (<3.5-17.0)
[2024-05-19] MEDS: Lactated Ringers 1,000 ML 999 ML IV (06:30)
[2024-05-19 06:33] VITALS: BP 111/69; PULSE 97; RESP 20; TEMP 36.6; O2SAT 97
[2024-05-19] MEDS: Loperamide HCl 2 MG CAPSULE 4 MG PO (06:38)
--- NOTE | 2024-05-19 07:24 | ED.NAVMDI ---
HPI - Nausea/Vomiting/Diarrhea General Chief complaint: Nausea/Vomiting/Diarrhea Stated complaint: N/V/D x9 hours Time Seen by Provider: 05/19/24 06:08 Source: patient and EMS Mode of arrival: EMS Limitations: no limitations History of Present Illness ED Provider: Dr. Peyton Hall HPI Narrative: Patient comes to the emergency room via ambulance from home complaining of nausea vomiting and diarrhea since last night. Patient states that the worst part is the diarrhea. At this time, patient denies chest pain shortness of breath or abdominal pain. Related Data Home Medications ?Medication ?Instructions ?Recorded ?Confirmed aspirin 81 mg tablet,delayed 81 mg PO BEDTIME 10/13/21 04/23/24 release (Adult Low Dose Aspirin) atenolol 50 mg tablet 50 mg PO BEDTIME 10/13/21 04/23/24 atorvastatin 20 mg tablet 20 mg PO DAILY 10/13/21 04/23/24 omega-3 fatty acids 1,000 mg 1,000 mg PO DAILY 10/13/21 04/23/24 capsule lisinopril 20 mg tablet 20 mg PO BEDTIME 03/23/22 04/23/24 calcium carbonate (Oyster Shell 500 mg PO BEDTIME 08/07/22 04/23/24 Calcium) docusate sodium 100 mg capsule 100 mg PO DAILY 12/21/22 04/23/24 clotrimazole 1 % topical cream 1 appl topical BID PRN Rash Under 09/15/23 04/23/24 Breast cholecalciferol (vitamin D3) 25 25 mcg PO DAILY 10/04/23 04/23/24 mcg (1,000 unit) capsule alendronate 70 mg tablet 70 mg PO TH 04/23/24 04/23/24 levothyroxine 100 mcg tablet 100 mcg PO DAILY@0600 04/23/24 04/23/24 loratadine 10 mg tablet 10 mg PO DAILY 04/23/24 04/23/24 Previous Rx's ?Medication ?Instructions ?Recorded clopidogrel 75 mg tablet (Plavix) 75 mg PO DAILY #30 tabs 08/09/22 tamsulosin 0.4 mg capsule 0.4 mg PO DAILY #30 caps 08/09/22 cefuroxime axetil 250 mg tablet 250 mg PO BID 7 days #14 tabs 05/19/24 loperamide 2 mg tablet 2 mg PO Q4H PRN loose stool #14 05/19/24 tabs Allergies Allergy/AdvReac Type Severity Reaction Status Date / Time propoxyphene [From Darvon] Allergy Mild UNKNOWN Verified 05/19/24 03:39 alteplase AdvReac Intermediate Itching Verified 05/19/24 03:39 metformin [Metformin] AdvReac Mild DIARRHEA, Verified 05/19/24 03:39 RASH Review of Systems Review of Systems: Constitutional : No Weight loss, No Fever, No Chills, No Night Sweats, No Fatigue, No Malaise ENT/Mouth : No Hearing loss, No Ear Pain, No Nasal Congestion, No Sinus Pain, No Hoarseness, No sore throat, No Rhinorrhea, No Swallowing Difficulty Eyes: No Eye Pain, No Swelling, No Redness, No Foreign Body, No Discharge, No Vision Changes Cardiovascular : No Chest Pain, No SOB, No Dyspnea on Exertion, No Orthopnea, No Edema, No Palpitations Respiratory : No Cough, No Sputum, No Wheezing, No Smoke Exposure, No Dyspnea Gastrointestinal : Complaining of nausea vomiting and diarrhea, No Constipation, No abdominal Pain, No Hematochezia, No Melena Genitourinary : no irregular bleeding, No Dysuria, No Urinary Frequency, No Hematuria, No Urinary Incontinence, No Urgency, No Flank Pain, No Urinary Flow Changes, No Hesitancy Musculoskeletal : No joint pain, No Myalgias, No Joint Swelling Skin : No Skin Lesions, No rash Neuro : No Weakness, No Numbness, No Paresthesias, No Loss of Consciousness, No Dizziness, No Headache Psych : No Anxiety/Panic, No Depression, No SI/HI/AH/VH, No Social Issues, Heme/Lymph: No Bruising, No Bleeding,No Lymphadenopathy Endocrine : No Polyuria, No Polydipsia, No Temperature Intolerance [facility] Past Medical History Medical History Post-traumatic osteoarthritis of right knee Hypertension Type 2 diabetes mellitus Anemia Thrombocytopenia Cerebrovascular accident Adnexal mass Occult GI bleeding Adult failure to thrive COVID-19 virus infection Major depressive disorder Intellectual disability Ischemic stroke Hernia Hypothyroidism Osteoporosis GERD (gastroesophageal reflux disease) High blood pressure Surgical History History of rectal surgery Social History Social History Household Members: None Housing: House Housing Other:: hotel Do you presently have visiting nurse or other home services: No Alcohol intake: never Comment: COUNTS CORRECT Patient Tobacco Use Status: Former Tobacco user Tobacco use type: Cigarette Smoked in Last 30 Days: No e-Cigarette/Vaping Use: Former Use Second Hand Smoke Exposure: No Use of substances other than those prescribed or required for medical reasons: No Advance Directives: Yes Advance Directives on File: Yes Advance Directives Date on File: 09/20/23 service: No Current occupational status: retired and disabled Physical Exam Vital Signs: Vital Signs: Last Vital Signs Temp 97.5 F 05/19/24 08:09 Pulse 95 05/19/24 08:09 Resp 20 05/19/24 08:09 BP 118/65 05/19/24 08:09 Pulse Ox 97 05/19/24 08:09 O2 Del Method Room Air 05/19/24 06:33 BMI result Body Mass Index 21.1 Const: Other: Appearance: Alert. Oriented X3. No acute distress. Eyes: Pupils equal, round and reactive to light. ENT: Pharynx normal. Neck: Normal inspection. Neck supple. No lymph nodes noted. No crepitus CVS: Normal heart rate and rhythm. Pulses normal. Normal S1 and S2 Respiratory: No respiratory distress. Breath sounds normal. No Wheezing. No rales Abdomen: Soft and nontender. No rigidity. No distention. Skin: Skin warm and dry. Normal skin color. Normal skin turgor. Extremities: No lower extremity edema. No Lacerations. No Rash Neuro: Oriented X 3. No motor deficit. No sensory deficit. Moving all extremities. No slurred speech. CN 2 through 12 grossly intact Psych: calm, cooperative, normal affect Course Reevaluation(s) Reevaluation #1: 05/19/2024 DR. Walker's progress note: I assumed care of this patient from Dr. Hall at 07:00 the plan was check urine then discharge, UA is showing UTI will start the patient on Ceftin 250 mg b.i.d. 1st dose with administered in ER, patient feels dehydrated will infuse will L of normal saline. Time: 10:20 Medications Administered Discontinued Medications Generic Name Dose Route Start Last Admin Trade Name Freq PRN Reason Stop Dose Admin Lactated Ringer's 1,000 mls @ 999 mls/hr 05/19/24 06:15 05/19/24 08:09 Lr IV 05/19/24 07:15 Infused .Q1H1M RADHA Infusion Loperamide HCl 4 mg 05/19/24 06:14 05/19/24 06:38 Loperamide Hcl 2 Mg Capsule PO 05/19/24 06:15 4 mg ONCE ONE Administration Medical Decision Making Medical Decision Making [facility] Narrative: My interpretation of labs: Patient's white blood cell count 10.9, likely reactive leukocytosis. Chemistry does not show any acute abnormality. Normal renal function, normal LFTs and troponin and lipase, serology negative for flu COVID and RSV. Patient receiving IV fluids, loperamide. Here in the emergency room, patient has not had significant amount of diarrhea, just 1 episode of loose stool when she arrived to the ED. Overall, patient states that she feels much better. Urinalysis pending. Patient's abdomen is soft, nontender to palpation. Imaging/CT scan is not indicated at this time Sign-out given to my colleague Dr. Walker Differential Diagnosis Differential Diagnoses: The differential diagnosis associated with the presentation includes (Gastritis, viral illness, UTI) Lab Data [facility] Lab Attestation statement: I reviewed the patient's lab results. 05/19/24 04:26 05/19/24 04:42 Labs: Lab Results 05/19/24 05/19/24 05/19/24 Range/Units 04:14 04:26 04:42 WBC 10.9 H (4.8-10.8) X10*3/uL RBC 5.43 (4.20-5.50) X10*6/uL Hgb 15.5 (12.0-16.0) g/dl Hct 45.8 (37.0-47.0) % MCV 84.3 (80.0-98.0) fL MCH 28.5 (27.0-33.0) pg MCHC 33.8 (31.0-35.0) g/dl RDW 15.3 (11.0-16.0) % Plt Count 258 (160-400) X10*3/uL MPV 9.3 L (9.4-12.3) fL Immature Gran % (Auto) 0.2 (0.0-0.4) % Neut % (Auto) 90.2 H (45-73) % Lymph % (Auto) 5.1 L (20-40) % [place] % (Auto) 3.9 (2-11) % Eos % (Auto) 0.2 (0-4) % Baso % (Auto) 0.4 (0-2) % Lymph # (Auto) 0.6 L (1.2-4.9) X10*3/uL [place] # (Auto) 0.4 (0.1-1.2) X10*3/uL Eos # (Auto) 0.0 (0.0-0.4) X10*3/uL Baso # (Auto) 0.0 (0.0-0.2) X10*3/uL Abs Immat Gran (auto) 0.02 (0.00-0.03) X10*3/uL Absolute Neuts (auto) 9.8 H (2.0-8.3) x10*3/uL Absolute Nucleated RBC 0.000 (0.0-0.012) X10*3/uL Nucleated RBC % (auto) 0.0 (0.0-0.2) /100WBC Smear Tech's Comments VERIFIED Hold Purple Top SEE NOTE Sodium 140 (135-145) mmol/L Potassium 4.2 (3.3-5.1) mmol/L Chloride 109 H (96-108) mmol/L Carbon Dioxide 22 (22-29) mmol/L Anion Gap 13 (12-20) BUN 17 H (9-16) mg/dL Creatinine 0.58 (0.5-1.4) mg/dL Estim Creat Clear Calc 63.9 Estimated GFR > 60 Random Glucose 150 H (60-115) mg/dL Calcium 9.2 (8.4-10.2) mg/dL Magnesium 2.3 (1.6-2.6) mg/dL Total Bilirubin 0.8 (0.0-1.0) mg/dL AST 20 (5-31) U/L ALT 9 (0-31) U/L Alkaline Phosphatase 100 (39-117) U/L Troponin I High Sens < 2.7 D (<3.5-17.0) ng/L Total Protein 6.9 (6.5-8.0) g/dL Albumin 4.2 (3.5-5.0) g/dL Lipase 14 (8-78) U/L Urine Color Urine Appearance Urine pH (5.0-9.0) Ur Specific Jbphh (1.005-1.025) Urine Protein (Neg-Trace) mg/dL Urine Glucose (UA) (Negative) mg/dL Urine Ketones (Negative) mg/dL Urine Blood (Negative) Urine Nitrite (Negative) Ur Leukocyte Esterase (Negative) Urine RBC (0-2) /HPF Urine WBC (0-5) /HPF Ur Squamous Epith Cells (0-2) /HPF Urine Bacteria (None Seen) Hyaline Casts (0-2) /LPF Influenza Type A (PCR) NEGATIVE (Negative) Influenza Type B (PCR) NEGATIVE (Negative) RSV RNA Qual (PCR) NEGATIVE (Negative) SARS-CoV-2 RNA (RT-PCR) NEGATIVE (Negative) 05/19/24 Range/Units 10:03 WBC (4.8-10.8) X10*3/uL RBC (4.20-5.50) X10*6/uL Hgb (12.0-16.0) g/dl Hct (37.0-47.0) % MCV (80.0-98.0) fL MCH (27.0-33.0) pg MCHC (31.0-35.0) g/dl RDW (11.0-16.0) % Plt Count (160-400) X10*3/uL MPV (9.4-12.3) fL Immature Gran % (Auto) (0.0-0.4) % Neut % (Auto) (45-73) % Lymph % (Auto) (20-40) % [place] % (Auto) (2-11) % Eos % (Auto) (0-4) % Baso % (Auto) (0-2) % Lymph # (Auto) (1.2-4.9) X10*3/uL [place] # (Auto) (0.1-1.2) X10*3/uL Eos # (Auto) (0.0-0.4) X10*3/uL Baso # (Auto) (0.0-0.2) X10*3/uL Abs Immat Gran (auto) (0.00-0.03) X10*3/uL Absolute Neuts (auto) (2.0-8.3) x10*3/uL Absolute Nucleated RBC (0.0-0.012) X10*3/uL Nucleated RBC % (auto) (0.0-0.2) /100WBC Smear Tech's Comments Hold Purple Top Sodium (135-145) mmol/L Potassium (3.3-5.1) mmol/L Chloride (96-108) mmol/L Carbon Dioxide (22-29) mmol/L Anion Gap (12-20) BUN (9-16) mg/dL Creatinine (0.5-1.4) mg/dL Estim Creat Clear Calc Estimated GFR Random Glucose (60-115) mg/dL Calcium (8.4-10.2) mg/dL Magnesium (1.6-2.6) mg/dL Total Bilirubin (0.0-1.0) mg/dL AST (5-31) U/L ALT (0-31) U/L Alkaline Phosphatase (39-117) U/L Troponin I High Sens (<3.5-17.0) ng/L Total Protein (6.5-8.0) g/dL Albumin (3.5-5.0) g/dL Lipase (8-78) U/L Urine Color Yellow Urine Appearance Cloudy Urine pH 7.0 (5.0-9.0) Ur Specific Jbphh 1.015 (1.005-1.025) Urine Protein Negative (Neg-Trace) mg/dL Urine Glucose (UA) Negative (Negative) mg/dL Urine Ketones Trace (Negative) mg/dL Urine Blood Small (1+) H (Negative) Urine Nitrite Positive H (Negative) Ur Leukocyte Esterase Large (3+) H (Negative) Urine RBC 6-10 H (0-2) /HPF Urine WBC >50 H (0-5) /HPF Ur Squamous Epith Cells >20 (0-2) /HPF Urine Bacteria 4+ (None Seen) Hyaline Casts 0-2 (0-2) /LPF Influenza Type A (PCR) (Negative) Influenza Type B (PCR) (Negative) RSV RNA Qual (PCR) (Negative) SARS-CoV-2 RNA (RT-PCR) (Negative) Critical Care Time Critical Care Time Critical Care Time: Yes Total Critical Care Time: 45 Attestation: I have personally provided critical care time. Time includes review of lab data, radiology results, discussion with consultants, and monitoring for potential decompensation. Intervention performed as documented. Discharge Plan Discharge Clinical Impression: Diarrhea, Acute UTI Patient Disposition: Home, Self-Care Instructions: Acute Diarrhea (ED) Additional Instructions: Please follow-up with your primary care physician tomorrow. If you have any worsening or new symptoms, please return to the emergency room or call 911 Prescriptions: New loperamide 2 mg tablet 2 mg PO Q4H PRN (Reason: loose stool) Qty: 14 0RF Rx Instructions: administer after each loose stool until symptoms controlled; do not exceed 8 mg per 24 hrs cefuroxime axetil 250 mg tablet 250 mg PO BID 7 Days Qty: 14 0RF No Action lisinopril 20 mg tablet 20 mg PO BEDTIME calcium carbonate [Oyster Shell Calcium] 500 mg calcium (1,250 mg) Tablet 500 mg PO BEDTIME tamsulosin 0.4 mg Capsule 0.4 mg PO DAILY Qty: 30 0RF clopidogrel [Plavix] 75 mg tablet 75 mg PO DAILY Qty: 30 0RF alendronate 70 mg tablet 70 mg PO TH levothyroxine 100 mcg tablet 100 mcg PO DAILY@0600 loratadine 10 mg Tablet 10 mg PO DAILY clotrimazole 1 % cream 1 appl topical BID PRN (Reason: Rash Under Breast) atorvastatin 20 mg tablet 20 mg PO DAILY omega-3 fatty acids 1,000 mg capsule 1,000 mg PO DAILY atenolol 50 mg tablet 50 mg PO BEDTIME aspirin [Adult Low Dose Aspirin] 81 mg tablet,delayed release (DR/EC) 81 mg PO BEDTIME docusate sodium 100 mg capsule 100 mg PO DAILY cholecalciferol (vitamin D3) 25 mcg (1,000 unit) capsule 25 mcg PO DAILY Referrals: Sangeetha Sage MD [Primary Care Provider] - Print Language: Romansh
[2024-05-19 08:09] VITALS: BP 118/65; PULSE 95; RESP 20; TEMP 36.4; O2SAT 97
--- NOTE | 2024-05-19 08:11 | PC.NURSE ---
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
[2024-05-19 10:08] LABS: Appearance Urine Cloudy; Color Urine Yellow; Glucose Urine UA Negative (Negative); Leukocyte Esterase Urine Large (3+) (Negative); Nitrite Urine Positive (Negative); Specific Gravity - Urine 1.015 (1.005-1.025); UMIC TRIGGER UACC YES; Urine Blood Small (1+) (Negative); Urine Ketones Trace mg/dL (Negative); Urine Protein Negative (Neg-Trace)
[2024-05-19 10:13] LABS: Bacteria Urine 4+ (None Seen); Hyaline Casts Urine 0-2 /LPF (0-2); Squamous Epithelial Cell Urine >20 /HPF (0-2); UACC Culture Trigger YES; WBC Urine >50 /HPF (0-5)
[2024-05-19] MEDS: 0.9 % Sodium Chloride 1,000 ML 999 ML IV (10:37)
[2024-05-19] MEDS: cefuroxime axetiL 250 MG TABLET PO (10:38)
--- NOTE | 2024-05-19 10:39 | PC.NURSE ---
pt ambulated to bathroom was able to give urine, pt ambulated with steady gait with walker. pt to discharge after 1L fluid. staff to come sit at bedside and take her home when she is ready to discharge.
[2024-05-19 11:47] VITALS: BP 115/101; PULSE 91; RESP 18; TEMP 36.7; O2SAT 95
== END 2024-05-19 11:49 | disposition home or self-care (01) ==
PROVIDERS: Emergency Medicine; Emergency Provider Emergency Medicine; PCP Internal Medicine
DX: N39.0 Urinary tract infection, site not specified (principal); R19.7 Diarrhea, unspecified; R11.2 Nausea with vomiting, unspecified; Z03.818 Encounter for observation for suspected exposure to other biological agents ruled out; Z79.82 Long term (current) use of aspirin; Z79.02 Long term (current) use of antithrombotics/antiplatelets; Z79.899 Other long term (current) drug therapy
CPT/HCPCS: 0241U; 36415; 80053; 81001; 83690; 83735; 84484; 85025; 87086; 87088; 87186; 93005; 96360; 96361; 99284; 99285; J7120

== ENCOUNTER → 2024-05-19 03:46 | Outpatient (BNV) | payer MEDICARE, MEDICAID, SELFPAY | PROVIDERS: Emergency Provider Emergency Medicine; PCP Internal Medicine; Visit Provider Internal Medicine | DX: I45.10 Unspecified right bundle-branch block (principal) | CPT/HCPCS: 93010 ==

== ENCOUNTER 2024-06-28 01:50 | Emergency (ER) | payer MEDICARE, MEDICAID, SELFPAY ==
--- NOTE | ~2024-06-28 | CT_ITS ---
CLINICAL HISTORY: pelvic pain CT abdomen and pelvis without contrast Comparison: CT/SR - CT ABDOMEN PELVIS WO IV CON - 04/23/24 00:17 EDT Findings: Large hiatal hernia. No focal hepatic lesion identified. Radiodense sludge or stones layer dependently within the gallbladder. Atrophic pancreatic changes are noted. Spleen and adrenal glands are unremarkable. Kidneys are non hydronephrotic. No bowel obstruction, pneumoperitoneum, or pneumatosis. Prior ventral abdominal wall hernia mesh repair noted. Scattered sigmoid diverticula without diverticulitis. Left hip arthroplasty causes metallic artifact degrading images of the pelvis. Large left adnexal cystic structure abuts the urinary bladder measuring 8.4 x 7.7 x 7.8 cm. Grossly unchanged since prior CT. The bones are intact. Atherosclerotic vascular calcifications are present. IMPRESSION: 1. No significant interval change since the prior CT of 04/22/2024. 2. Stable appearance of large left adnexal or ovarian cystic structure. Pelvic ultrasound may be helpful for further evaluation if clinically indicated. This document has been electronically signed by: Anastacio Diaz MD, PHD on 06/28/2024 03:51:03
--- NOTE | 2024-06-28 02:03 | ED_ITS ---
HPI - Abdominal Pain General Chief Complaint: Abdominal Pain Stated Complaint: POSSIBLE RUPTURED OVARIAN CYST Time Seen by Provider: 06/28/24 02:02 Source: patient Mode of arrival: EMS Limitations: no limitations History of Present Illness ED Provider: HPI narrative: Patient with left adnexal cyst comes here for vaginal spotting on Plavix also complaining of pain in the right shoulder no fever no chills no urinary complaints noted to have urinary retention when she arrived no vomiting Related Data Home Medications ?Medication ?Instructions ?Recorded ?Confirmed aspirin 81 mg tablet,delayed 81 mg PO BEDTIME 10/13/21 04/23/24 release (Adult Low Dose Aspirin) atenolol 50 mg tablet 50 mg PO BEDTIME 10/13/21 04/23/24 atorvastatin 20 mg tablet 20 mg PO DAILY 10/13/21 04/23/24 omega-3 fatty acids 1,000 mg 1,000 mg PO DAILY 10/13/21 04/23/24 capsule lisinopril 20 mg tablet 20 mg PO BEDTIME 03/23/22 04/23/24 calcium carbonate (Oyster Shell 500 mg PO BEDTIME 08/07/22 04/23/24 Calcium) docusate sodium 100 mg capsule 100 mg PO DAILY 12/21/22 04/23/24 clotrimazole 1 % topical cream 1 appl topical BID PRN Rash Under 09/15/23 04/23/24 Breast cholecalciferol (vitamin D3) 25 25 mcg PO DAILY 10/04/23 04/23/24 mcg (1,000 unit) capsule alendronate 70 mg tablet 70 mg PO TH 04/23/24 04/23/24 levothyroxine 100 mcg tablet 100 mcg PO DAILY@0600 04/23/24 04/23/24 loratadine 10 mg tablet 10 mg PO DAILY 04/23/24 04/23/24 Previous Rx's ?Medication ?Instructions ?Recorded clopidogrel 75 mg tablet (Plavix) 75 mg PO DAILY #30 tabs 08/09/22 tamsulosin 0.4 mg capsule 0.4 mg PO DAILY #30 caps 08/09/22 cefuroxime axetil 250 mg tablet 250 mg PO BID #14 tabs 05/19/24 cefuroxime axetil 250 mg tablet 250 mg PO BID 7 days #14 tabs 05/19/24 loperamide 2 mg tablet 2 mg PO Q4H PRN loose stool #14 05/19/24 tabs loperamide 2 mg tablet 2 mg PO Q6H PRN loose stool #14 05/19/24 tabs clotrimazole 1 % topical cream 1 appl topical BID #45 grams 06/28/24 Allergies Allergy/AdvReac Type Severity Reaction Status Date / Time propoxyphene [From Darvon] Allergy Mild UNKNOWN Verified 06/28/24 02:19 alteplase AdvReac Intermediate Itching Verified 06/28/24 02:19 metformin [Metformin] AdvReac Mild DIARRHEA, Verified 06/28/24 02:19 RASH Review of Systems Review of Systems Yes all other systems are reviewed and are negative [facility] Past Medical History Medical History Post-traumatic osteoarthritis of right knee Hypertension Type 2 diabetes mellitus Anemia Thrombocytopenia Cerebrovascular accident Adnexal mass Occult GI bleeding Adult failure to thrive COVID-19 virus infection Major depressive disorder Intellectual disability Ischemic stroke Hernia Hypothyroidism Osteoporosis GERD (gastroesophageal reflux disease) High blood pressure Surgical History History of rectal surgery Social History Social History Household Members: None Housing: House Housing Other:: hotel Do you presently have visiting nurse or other home services: No Alcohol intake: never Comment: COUNTS CORRECT Patient Tobacco Use Status: Former Tobacco user Tobacco use type: Cigarette Smoked in Last 30 Days: No e-Cigarette/Vaping Use: Former Use Second Hand Smoke Exposure: No Use of substances other than those prescribed or required for medical reasons: No Advance Directives: Yes Advance Directives on File: Yes Advance Directives Date on File: 09/20/23 Do you have a plan to hurt others: No Plan service: No Current occupational status: retired and disabled Physical Exam ED Vital Signs: Vital Signs - 24 hr 06/28/24 02:50 06/28/24 04:23 06/28/24 05:50 Temperature 99 F 99.6 F Pulse Rate 69 85 Respiratory Rate 16 16 20 Blood Pressure 122/69 125/78 Pulse Oximetry 93 94 Oxygen Delivery Method Room Air Room Air BMI result Body Mass Index 19.5 Appearance: Alert. Oriented X3. No acute distress. Eyes: No pallor or icterus ENT: Pharynx normal. Oral Mucosa moist Neck: Normal inspection. Neck supple. CVS: Normal heart rate and rhythm. Pulses normal. Respiratory: No respiratory distress. Equal air entry bilateral, no wheezing/rales/rhonchi Abdomen: Soft suprapubic fullness Bowel sounds are present, no mass palpable, no CVA tenderness no significant vaginal bleeding Skin: Skin warm and dry. Rash under breasts Extremities: No lower extremity edema. No calf tenderness diffuse tenderness right shoulder Neuro: Oriented X 3. No motor deficit. No sensory deficit.No cerebellar signs , cranial nerves II-XII intact Medical Decision Making Medical Decision Making [facility] Narrative: Patient with urinary retention which is chronic does not want any Carver catheter does have left adnexal mass which is been there for a while surgeon been following it patient has refused any Carver catheter says that she usually eventually urinates also patient has a intertrigo under the breast will prescribe clotrimazole cream Differential Diagnosis Differential Diagnoses: The differential diagnosis associated with the presentation includes Lab Data [facility] Lab Attestation statement: I reviewed the patient's lab results. 06/28/24 02:51 06/28/24 02:51 Labs: Lab Results 06/28/24 06/28/24 Range/Units 02:51 03:18 WBC 5.2 (4.8-10.8) X10*3/uL RBC 4.83 (4.20-5.50) X10*6/uL Hgb 13.7 (12.0-16.0) g/dl Hct 41.4 (37.0-47.0) % MCV 85.7 (80.0-98.0) fL MCH 28.4 (27.0-33.0) pg MCHC 33.1 (31.0-35.0) g/dl RDW 14.9 (11.0-16.0) % Plt Count 216 (160-400) X10*3/uL MPV 9.6 (9.4-12.3) fL Immature Gran % (Auto) 0.2 (0.0-0.4) % Neut % (Auto) 65.3 (45-73) % Lymph % (Auto) 23.3 (20-40) % [place] % (Auto) 5.6 (2-11) % Eos % (Auto) 4.8 H (0-4) % Baso % (Auto) 0.8 (0-2) % Lymph # (Auto) 1.2 (1.2-4.9) X10*3/uL [place] # (Auto) 0.3 (0.1-1.2) X10*3/uL Eos # (Auto) 0.3 (0.0-0.4) X10*3/uL Baso # (Auto) 0.0 (0.0-0.2) X10*3/uL Abs Immat Gran (auto) 0.01 (0.00-0.03) X10*3/uL Absolute Neuts (auto) 3.4 (2.0-8.3) x10*3/uL Absolute Nucleated RBC 0.000 (0.0-0.012) X10*3/uL Nucleated RBC % (auto) 0.0 (0.0-0.2) /100WBC Sodium 144 (135-145) mmol/L Potassium 3.8 (3.3-5.1) mmol/L Chloride 107 (96-108) mmol/L Carbon Dioxide 27 (22-29) mmol/L Anion Gap 14 (12-20) BUN 14 (9-16) mg/dL Creatinine 0.53 (0.5-1.4) mg/dL Estim Creat Clear Calc 66.6 Estimated GFR > 60 Random Glucose 102 (60-115) mg/dL Calcium 9.1 (8.4-10.2) mg/dL Total Bilirubin 0.5 (0.0-1.0) mg/dL AST 19 (5-31) U/L ALT 8 (0-31) U/L Alkaline Phosphatase 83 (39-117) U/L Total Protein 6.4 L (6.5-8.0) g/dL Albumin 3.9 (3.5-5.0) g/dL Urine Color Yellow Urine Appearance Clear Urine pH 7.5 (5.0-9.0) Ur Specific [place] 1.010 (1.005-1.025) Urine Protein Negative (Neg-Trace) mg/dL Urine Glucose (UA) Negative (Negative) mg/dL Urine Ketones Negative (Negative) mg/dL Urine Blood Negative (Negative) Urine Nitrite Negative (Negative) Ur Leukocyte Esterase Negative (Negative) Independent Interpretation I performed an independent interpretation of an: CT Scan Radiology Impression Discussion of test interpretation with radiology: I have reviewed the radiologist's reading. Radiologist Impression: [address] [address] [address] Scan Report Signed Patient: Briseida Reich MR#: [id number] : 1945 Acct:[id number] Age/Sex: 79 / F ADM Date: 06/28/24 Loc: HO.ED Attending Dr: Ordering Physician: Conner Chavze MD Date of Service: 06/28/24 Procedure(s): CT abdomen pelvis wo IV con Accession Number(s): [id number] cc: Sangeetha Sage MD; Conner Chavez MD~ Report Number: [id number]: Total DLP = 525.00 mGy-cm CLINICAL HISTORY: pelvic pain CT abdomen and pelvis without contrast Comparison: CT/SR - CT ABDOMEN PELVIS WO IV CON - 04/23/24 00:17 EDT Findings: Large hiatal hernia. No focal hepatic lesion identified. Radiodense sludge or stones layer dependently within the gallbladder. Atrophic pancreatic changes are noted. Spleen and adrenal glands are unremarkable. Kidneys are non hydronephrotic. No bowel obstruction, pneumoperitoneum, or pneumatosis. Prior ventral abdominal wall hernia mesh repair noted. Scattered sigmoid diverticula without diverticulitis. Left hip arthroplasty causes metallic artifact degrading images of the pelvis. Large left adnexal cystic structure abuts the urinary bladder measuring 8.4 x 7.7 x 7.8 cm. Grossly unchanged since prior CT. The bones are intact. Atherosclerotic vascular calcifications are present. IMPRESSION: 1. No significant interval change since the prior CT of 04/22/2024. 2. Stable appearance of large left adnexal or ovarian cystic structure. Pelvic ultrasound may be helpful for further evaluation if clinically indicated. This document has been electronically signed by: Anastacio Diaz MD, PHD on 06/28/2024 03:51:03 Medications Administered Discontinued Medications Generic Name Dose Route Start Last Admin Trade Name Freq PRN Reason Stop Dose Admin Oxycodone HCl 5 mg 06/28/24 02:33 06/28/24 03:23 Oxycodone Hcl Immed Release 5 Mg Tablet PO 06/28/24 02:34 5 mg ONCE ONE Administration Discharge Plan Discharge Clinical Impression: Adnexal cyst, Acute on chronic urinary retention, Candidal intertrigo Patient Disposition: Home, Self-Care Instructions: Ovarian Cyst (ED), Acute Urinary Retention in Women (ED) Additional Instructions: Follow with your PCP for further management No acute findings were noticed in the abdomen you have large left ovarian cyst Prescriptions: New clotrimazole 1 % cream 1 appl topical BID Qty: 45 0RF No Action lisinopril 20 mg tablet 20 mg PO BEDTIME calcium carbonate [Oyster Shell Calcium] 500 mg calcium (1,250 mg) Tablet 500 mg PO BEDTIME tamsulosin 0.4 mg Capsule 0.4 mg PO DAILY Qty: 30 0RF clopidogrel [Plavix] 75 mg tablet 75 mg PO DAILY Qty: 30 0RF alendronate 70 mg tablet 70 mg PO TH levothyroxine 100 mcg tablet 100 mcg PO DAILY@0600 loratadine 10 mg Tablet 10 mg PO DAILY clotrimazole 1 % cream 1 appl topical BID PRN (Reason: Rash Under Breast) loperamide 2 mg tablet 2 mg PO Q4H PRN (Reason: loose stool) Qty: 14 0RF Rx Instructions: administer after each loose stool until symptoms controlled; do not exceed 8 mg per 24 hrs cefuroxime axetil 250 mg tablet 250 mg PO BID 7 Days Qty: 14 0RF cefuroxime axetil 250 mg tablet 250 mg PO BID Qty: 14 0RF loperamide 2 mg tablet 2 mg PO Q6H PRN (Reason: loose stool) Qty: 14 0RF atorvastatin 20 mg tablet 20 mg PO DAILY omega-3 fatty acids 1,000 mg capsule 1,000 mg PO DAILY atenolol 50 mg tablet 50 mg PO BEDTIME aspirin [Adult Low Dose Aspirin] 81 mg tablet,delayed release (DR/EC) 81 mg PO BEDTIME docusate sodium 100 mg capsule 100 mg PO DAILY cholecalciferol (vitamin D3) 25 mcg (1,000 unit) capsule 25 mcg PO DAILY Print Language: Yakut
[2024-06-28 02:13] VITALS: BP 170/80; PULSE 75; O2SAT 97; BMI 19.5
[2024-06-28 02:50] VITALS: BP 122/69; PULSE 69; RESP 16; TEMP 37.2; O2SAT 93
[2024-06-28 02:57] LABS: MANUAL DIFF FLAG NO
[2024-06-28 03:07] LABS: Basophils Percent Auto 0.8 % (0-2); Eosinophils Absolute Auto 0.3 X10*3/uL (0.0-0.4); Eosinophils Percent Auto 4.8 % (0-4); Hematocrit 41.4 % (37.0-47.0); Hemoglobin 13.7 g/dl (12.0-16.0); Imm Gran Abs Auto 0.01 X10*3/uL (0.00-0.03); Imm Gran Pct Auto 0.2 % (0.0-0.4); Lymphocytes Absolute Auto 1.2 X10*3/uL (1.2-4.9); Lymphocytes Percent Auto 23.3 % (20-40); Mean Corpuscular HGB Conc 33.1 g/dl (31.0-35.0); Mean Corpuscular Hemoglobin 28.4 pg (27.0-33.0); Mean Corpuscular Volume 85.7 fL (80.0-98.0); Mean Platelet Volume 9.6 fL (9.4-12.3); Monocytes Absolute Auto 0.3 X10*3/uL (0.1-1.2); Monocytes Percent Auto 5.6 % (2-11); Neutrophils Absolute Auto 3.4 x10*3/uL (2.0-8.3); Neutrophils Percent Auto 65.3 % (45-73); Platelet Count 216 X10*3/uL (160-400); Red Blood Count 4.83 X10*6/uL (4.20-5.50); Red Cell Distribution Width 14.9 % (11.0-16.0); White Blood Count 5.2 X10*3/uL (4.8-10.8)
--- NOTE | 2024-06-28 03:15 | PC.NURSE ---
Addendum entered by Angel Keys RN 06/28/24 04:48: 86 mL in bladder now. MD Wild notified Original Note: pt reporting retention of urine. suprapubic jean claude palpated, distended, tender. 615 mL bladder scanned. 600 mL emptied. pt verbalizes relief. urine sent to lab
--- NOTE | 2024-06-28 03:19 | MHC.EDTECH ---
assumed care of pt
[2024-06-28] MEDS: oxyCODONE HCl Immed Release 5 MG TABLET PO (03:23)
[2024-06-28 03:31] LABS: Appearance Urine Clear; Color Urine Yellow; Glucose Urine UA Negative (Negative); Leukocyte Esterase Urine Negative (Negative); Nitrite Urine Negative (Negative); PH 7.5 (5.0-9.0); Urine Blood Negative (Negative); Urine Ketones Negative (Negative); Urine Protein Negative (Neg-Trace)
[2024-06-28 03:36] LABS: Alanine Aminotransferase 8 U/L (0-31); Albumin Level 3.9 g/dL (3.5-5.0); Anion Gap 14 (12-20); Aspartate Amino Transferase 19 U/L (5-31); Bilirubin Total 0.5 mg/dL (0.0-1.0); Blood Urea Nitrogen 14 mg/dL (9-16); Calcium 9.1 mg/dL (8.4-10.2); Carbon Dioxide 27 mmol/L (22-29); Chloride 107 mmol/L (96-108); Creatinine Clr Calc Pharmacy 66.6; Estimated Glomerular Filt Rate > 60; Glucose Random 102 mg/dL (60-115); Potassium 3.8 mmol/L (3.3-5.1); Sodium 144 mmol/L (135-145); Total Protein 6.4 g/dL (6.5-8.0)
[2024-06-28 03:44] LABS: Alkaline Phosphatase 83 U/L (39-117)
[2024-06-28 04:23] VITALS: RESP 16
[2024-06-28 05:50] VITALS: BP 125/78; PULSE 85; RESP 20; TEMP 37.6; O2SAT 94
[2024-06-28 06:34] VITALS: BP 148/77; PULSE 72; RESP 16; TEMP 37.3; O2SAT 98
== END 2024-06-28 06:35 | disposition home or self-care (01) ==
PROVIDERS: Emergency Provider Internal Medicine; PCP Internal Medicine
DX: N83.202 Unspecified ovarian cyst, left side (principal); R10.2 Pelvic and perineal pain; R33.9 Retention of urine, unspecified; L30.4 Erythema intertrigo; Z79.899 Other long term (current) drug therapy
CPT/HCPCS: 36415; 74176; 80053; 81003; 85025; 99284; 99285

== ENCOUNTER → 2024-06-28 02:20 | Outpatient (BNV) | payer MEDICARE, MEDICAID, SELFPAY | PROVIDERS: Emergency Provider Internal Medicine; PCP Internal Medicine; Visit Provider General Practice | DX: R10.2 Pelvic and perineal pain (principal) | CPT/HCPCS: 74176 ==

== ENCOUNTER 2024-10-29 05:37 | Emergency (ER) | payer MEDICARE, MEDICAID, SELFPAY ==
--- NOTE | 2024-10-29 | ECG_ITS ---
Test Reason : WEAKNESS Blood Pressure : */* mmHG Vent. Rate : 73 BPM Atrial Rate : 73 BPM P-R Int : 180 ms QRS Dur : 118 ms QT Int : 442 ms P-R-T Axes : 25 -22 -17 degrees QTcB Int : 486 ms Normal sinus rhythm with sinus arrhythmia Incomplete right bundle branch block ST & T wave abnormality, consider anterior ischemia Abnormal ECG When compared with ECG of 19-May-2024 03:46, No significant change was found Referred By: Mamie Hwang Electronically Signed By: BURT DEWITT
--- NOTE | ~2024-10-29 | CT_ITS ---
EXAMINATION: CT ABDOMEN PELVIS WITH IV CONTRAST HISTORY: abdominal pain, diarrhea COMPARISON: Comparison is made with the prior examination dated 06/28/2024. TECHNIQUE: CT scan of the abdomen and pelvis was performed following administration of 85 mL Omnipaque 350 using standard departmental protocol. Coronal and sagittal reformatted images were generated and reviewed. Oral contrast material was not administered at the request of the referring physician. This CT exam was performed with one or more of the following dose reduction techniques: automated exposure control, adjustment of the mA and/or kV according to patient size, use of iterative reconstruction technique. DLP: 544 mGy-cm FINDINGS: LOWER CHEST: The visualized lung bases are clear. There is no pleural effusion. CARDIOVASCULATURE: The heart is enlarged. There is no pericardial effusion. LIVER: The liver is normal in size and contour. Subcentimeter hypodensities are noted which are too small to accurately characterize. The hepatic and portal veins are patent. GALLBLADDER / BILE DUCTS: There is cholelithiasis. There is no intra or extrahepatic biliary ductal dilatation. SPLEEN: The spleen is normal in size. No focal splenic lesion is identified. PANCREAS: The pancreas is atrophic. ADRENAL GLANDS: Within normal limits. KIDNEYS/RETROPERITONEUM: No renal calculi are identified. There is no hydronephrosis. No renal masses are identified. LYMPH NODES: No abdominal or pelvic lymphadenopathy. VASCULATURE: The abdominal aorta demonstrates atherosclerotic calcification, but is normal in caliber. MESENTERY/PERITONEUM: No free fluid. No masses. There is no free intraperitoneal gas. STOMACH: There is a large hiatal hernia. The remainder of the stomach is collapsed. SMALL BOWEL: The small bowel is normal in caliber. COLON: The colon is unremarkable. APPENDIX: Normal. URINARY BLADDER/PELVIC ORGANS: The urinary bladder is collapsed, limiting evaluation. The uterus is unremarkable. Again seen is a left adnexal cystic structure measuring 8.7 x 6.5 x 7.1 cm. BONES / SOFT TISSUES: An abdominal wall mesh is seen in place. The patient is status post left total hip arthroplasty. CT/CT abdomen pelvis w IV con IMPRESSION: 1. Cholelithiasis. 2. Large hiatal hernia. 3. 8.7 x 6.5 x 7.1 cm left adnexal cystic structure is seen on prior imaging. Electronically signed by: Roman Osborne MD 10/29/2024 08:45 AM EDT
[2024-10-29 05:49] VITALS: BP 183/79; PULSE 74; RESP 20; TEMP 36.4; O2SAT 98
[2024-10-29 05:51] VITALS: BP 130/90; PULSE 81; O2SAT 97
[2024-10-29 05:52] VITALS: BP 148/77; PULSE 74; RESP 18; TEMP 36.4; O2SAT 95; BMI 21.0
--- OUTSIDE RECORDS SUMMARY | 2024-10-29 06:16 | XMS_ITS | Encounter Summary ---
Author Organization [facility] Address [address] [place] [address] Care Team Providers Care Livestock Buyer Name Role Phone Sangeetha Sage MD Primary Care Provider [phone] Reason for Visit * Reason Onset Date Comments faxed order 10/28/2024 [facility] ord er [id number] Encounter Details Date Type Department Care Team (Late st Contact Info) Description 10/28/2024 Telephone Adult Medicine [facility] [address], [place] [phone] Sangeetha Sage MD [address], [place] Social History Tobacco Use Types Packs/Day Years Used Date Smoking Tobacco: Former Cigarettes Q uit: 10/24/2015 Smokeless Tobacco: Former Quit: 08/27/2018 Alcohol Use Standard Drinks/Week Comments No 0 (1 standard drink = 0.6 oz pur e alcohol) Housing Instability Answer Date Recorde d Are you worried that in the next 2 months you may not have stable housing? No 09/02/2024 Food Access & Nutrition Answer Date Rec orded Do you have access to a vari ety of food including fruits and vegetables? Yes 09/02/2024 Access to Healthcare Answer Date Record ed Within the last 3 months, nay arndt many times did you visit the emergency department for your medical care? 3 09/02/2024 Health Literacy Answer Date Recorded How often do you need to hav e someone help you when you read instructions, pamphlets, or other written material from your doctor or pharmacy? Sometimes 09/02/2024 Caregiver: How often do you need to have someone help you when you read instructions, pamphlets, or other written material from your doctor or pharmacy? Not on file 09/02/2024 Financial Risk Answer Date Recorded How hard is it for you to pa y for the very basics like food, housing, medical care, and air conditioning / heating? Somewhat hard 09/02/2024 Transportation Answer Date Recorded Has the lack of transportati on kept you from meetings, work, or from getting things needed for daily living? No Has the lack of transportati on kept you from medical appointments or from getting medications? No 09/02/2024 Social Isolation Answer Date Recorded How often do you feel lonely or isolated from th ose around you? Never 09/02/2024 Food Risk Answer Date Recorded Within the past 12 months we worried whether our food would run out before we got money to buy more. Sometimes true 025 Within the past 12 months th e food we bought just didn't last and we didn't have money to get more. Sometimes true 09/02/2024 Dependent Care Answer Date Recorded Do you need help finding or paying for care for your loved ones. For example, director maternal child or elderly care for an older adult? No 09/02/2024 Education Answer Date Recorded Do you think completing more education or training, like finishing a GED, going to college, or learning a trade, would be helpful for you? N/A 09/02/2024 Employment and Income Answer Date Recor ded During the last four weeks, have you been actively looking for work? No 09/02/2024 Living Situation Answer Date Recorded What is your living situation? 0 09/02/2024 Comments No Sex and Gender Information Value Date Recorded Sex Assigned at Not on file Legal Sex Female 12:13 AM EST Gender Identity Not on file Sexual Orientation Not on file documented as of this encounter Progress Notes * Caterina Holly - 10/28/2024 1:47 PM EDT Byron tania order [id number] received please sign and fax to [phone] documented in this encounter Plan of Treatment Upcoming Encounters Date Type Department Care Team (Late st Contact Info) Description 11/14/2024 9:15 AM EDT [facility] [address] [place], [place] [phone] Nga Ruelas DO [address], [place] 11/20/2024 1:30 PM EDT Clinical Support Adult [address] [phone] 12/26/2024 2:00 PM EST Procedure visit [facility] [phone] Kortney Saldana NP [address] [place] [address] 01/03/2025 11:15 AM EST Office Visit [address] [phone] Sangeetha Sage MD [address] [place] [address] 01/08/2025 3:15 PM EST Office Visit [facility] [phone] Brit Gaston MD [address] [facility] [address] [place] [address] 09/04/2025 11:15 AM EDT Office Visit [address] [phone] Sangeetha Sage MD [address] [place] [address] documented as of this encounter Visit Diagnoses Not on filedocumented in this encounter Additional Health Concerns Assessment Noted Time PHQ-9 Depression Total Score: 1 09/03/19 11:29 AM EDT A fall risk assessment has been complete d for the patient 09/02/2024 11:23 AM EDT documented as of this encounter Care Teams Livestock Buyer Relationship Specialty Start Date End Date Sangeetha Sage MD [address] [place] [phone] PCP - General 08/27/04 documented as of this encounter
--- OUTSIDE RECORDS SUMMARY | 2024-10-29 06:16 | XMS_ITS | Clinical Summary ---
Author Organization [facility] [address] [place] [address] [place] [phone] Phone Care Team Providers Care Commercial Food Instructor Name Role Phone Sangeetha Sage MD Primary Care Provider [phone] Allergies Active Allergy Reactions Criticality Noted Date Comments Metformin Hcl 01/18/2007 Diarrhea Propoxyphene Numbness High 02/18/2005 Other reaction(s): Numbness, tingling or swelling of the lips, tongue or mouth Medications cholecalcifero l (VITAMIN D-3) 50 mcg (2,000 unit) capsule Take 1 capsule (2,000 Units total) by mouth. 11/25/19 22 Active acetaminophen (TYLENOL) 500 mg tablet Take 2 tablets (1,000 mg total) by mouth. 06/14/19 24 Active senna (SENOKOT) 8.6 mg tablet Take 2 tablets (17.2 mg total) by mouth. 03/17/19 18 Active ammonium lactate (AmLactin) 12 % lotion Apply topically if needed for dry skin. 400 g 01/02/20 24 025 Active alendronate (FOSAMAX) 70 mg tablet TAKE 1 TABLET BY MOUTH EVERY 7 DAYS 4 tablet 5 04/12/19 25 Active loperamide (IMODIUM) 2 mg capsule 05/20/19 25 Active lidocaine (LIDODERM) 5 % patchIndicatio ns:Chronic right shoulder pain Apply 1 patch topically 1 (one) time each day if needed (right shoulder pain). 30 patch 07/13/19 25 Active clopidogreL (PLAVIX) 75 mg tablet Take 1 tablet (75 mg total) by mouth 1 (one) time each day. 90 tablet 1 09/03/19 25 Active lisinopriL (PRINIVIL,ZEST RIL) 20 mg tablet Take 1 tablet (20 mg total) by mouth 1 (one) time each day. at bedtime. 90 tablet 1 09/05/19 25 Active Allergy Relief, loratadine, 10 mg tablet TAKE 1 TABLET BY MOUTH DAILY 28 tablet 09/27/19 Active tamsulosin (FLOMAX) 0.4 mg 24 hr capsule TAKE 1 CAPSULE BY MOUTH DAILY TAKE 30 MINUTES AFTER SAME MEAL DAILY 28 capsule 09/27/19 25 Active omega 0-vgv-hlk-fish oil 300 mg (120 mg- 180mg)-1,000 mg capsule TAKE 1 CAPSULE BY MOUTH EVERY MORNING 28 capsule 09/27/19 Active docusate sodium (COLACE) 100 mg capsule TAKE 1 CAPSULE BY MOUTH DAILY 28 capsule 09/27/19 25 Active atenoloL (TENORMIN) 50 mg tablet TAKE 1 TABLET BY MOUTH EVERY NIGHT AT BEDTIME 28 tablet 09/27/19 Active aspirin 81 mg EC tablet TAKE 1 TABLET BY MOUTH EVERY NIGHT AT BEDTIME 28 tablet 09/27/19 Active atorvastatin (LIPITOR) 20 mg tablet TAKE 1 TABLET BY MOUTH EVERY MORNING 28 tablet 09/27/19 Active Oyster Shell Calcium 500 500 mg calcium (1,250 mg) tablet TAKE 1 TABLET BY MOUTH EVERY NIGHT AT BEDTIME 28 tablet 09/27/19 25 Active levothyroxine (SYNTHROID, LEVOTHROID) 100 mcg tablet TAKE 1 TABLET BY MOUTH DAILY BEFORE BREAKFAST 28 tablet 09/27/19 Active polyethylene glycol (PEG) 17 gram/dose oral powder DISSOLVE 17 GRAMS IN 8OZ OF LIQUID AND DRINK DAILY 510 g 09/26/19 25 Active clotrimazole (LOTRIMIN) 1 % cream APPLY TOPICALLY TO THE AFFECTED AREA UNDER BREASTS TWICE A DAY NEEDED FOR RASH 30 g 09/26/19 25 Active nitrofurantoin , macrocrystal-m onohydrate, (MACROBID) 100 mg capsule Take 1 capsule (100 mg total) by mouth 2 (two) times a day for 5 days. 10 capsule 10/01/19 25 025 Discontinued Hospital, Clinic, or Other Facility Administered Medication Ordered Dose Route Frequency Start Date End Date Status cyanocobalamin (VITAMIN B-12) injection 1,000 mcgIndications:Vitamin B12 deficiency 1000 mcg IM Every 30 days 05/02/2024 04/27/2025 Active Active Problems Problem Noted Date Diagnosed Date Left ovarian cyst 07/04/2024 Incomplete bladder emptying 07/04/2024 Postmenopausal bleeding 07/04/2024 Assessment & Plan (09/02/2024 11:35 AM EDT): Assessment & Plan (07/04/2024 3:08 PM EDT): Likely secondary to erosion on vaginal mucosa from rectocele rubbing on clothing. No longer bleeding. Will monitor. Will get US anyway. Vaginal atrophy 07/04/2024 Assessment & Plan (07/04/2024 3:08 PM EDT): Can lubricate and protect skin for now with a skin barrier. DM (diabetes mellitus), type 2 with renal complications ([facility] V24, [facility] V28) 02/21/2024 Assessment & Plan (09/02/2024 11:35 AM EDT): DNR (do not resuscitate) 03/17/2023 Overview (11/09/2023): MOLST form completed 03/17/2023 Cardiopulmonary resuscitation - do not resuscitate Ventilation for a patient in respiratory distress - do not intubate or ventilate Transfer to hospital - transfer to hospital Dialysis - no dialysis Artificial nutrition - no artificial nutrition Artificial hydration - use artificial hydration History of completed stroke 08/30/2022 Overview (11/09/2023): 08/05 aborted pontine infarct, rx tPA Adnexal cyst 03/31/2022 Assessment & Plan (07/04/2024 3:06 PM EDT): Given stable, asymptomatic, and simple in appearance for years, no further follow up or intervention necessary. History of pelvic fracture 04/12/2017 Overview (11/09/2023): 03/02 left pubic ramus and acetabular fx secondary to a fall Vitamin B12 deficiency 03/12/2016 Rectocele 05/05/2010 Assessment & Plan (07/04/2024 3:06 PM EDT): Reviewed options for pelvic organ prolapse including observation, as long as not having difficulty emptying or significant discomfort, pessary fitting, vs surgical intervention. Given she is very bothered by it, she would like some treatment. I explained that she may do well with a pessary, but would like to get her bladder figured out as well before we do so. She was encouraged to see Urogyn to perhaps perform UDS and either fit for pessary, or consider surgery. Explained she may not be a surgical candidate. Either way should continue to work on constipation which is likely making this worse and would possible cause treatment for rectocele to fail. She agreed. She was informed that she should hear back in 1-2 weeks with an appointment date. If not, she should call back to our office and inquire on getting this arranged. She voiced understanding and agreed. Discussed with ENGINE TESTING SUPERVISOR as well. 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, residual left facial weakness Onychomycosis 04/14/2008 Irritable bowel syndrome 11/28/2005 Gastritis 09/21/2005 Overview (02/21/2024): Constipation 08/12/2005 Depression 08/12/2005 Esophageal reflux 08/12/2005 Hypertension 02/21/2005 Assessment & Plan (09/02/2024 11:35 AM EDT): Hypothyroidism 02/21/2005 Assessment & Plan (09/02/2024 11:35 AM EDT): Idiopathic osteoporosis 02/21/2005 Overview (11/09/2023): 09/23 T score spine -1.3 hip -1.7 FRAX score 9.5% 10 year fracture risk Moderate intellectual disabilities 02/21/2005 Pure hypercholesterolemia 02/21/2005 Assessment & Plan (09/02/2024 11:35 AM EDT): Resolved Problems Problem Noted Date Diagnosed Date Resolved Date Screening for cervical cancer 07/04/2024 09/02/2024 Assessment & Plan (07/04/2024 3:09 PM EDT): Will send Pap as has not had one in 30+ years. If normal, none further. Type 2 diabetes mellitus ( [facility] V24, [facility] V28) 08/12/2005 02/22/2024 Encounters Date Type Department Care Team Description 10/28/[address] [phone] Sangeetha Sage MD 10/23/2024 11:30 AM EDT Clinical Support [address] [phone] Vitamin B12 deficiency (Primary Dx) 10/09/2024 10:30 AM EDT Office Visit [address] [phone] Sangeetha Sage MD Primary hypertension (Primary Dx); Type 2 diabetes mellitus with stage 3 chronic kidney disease, without long-term current use of insulin, unspecified whether stage 3a or 3b CKD ([facility] V24, [facility] V28); History of completed stroke; Vitamin B12 deficiency; Gastroesophageal reflux disease without esophagitis 09/30/2024 Telephone Urogynecology - [address] [place] [address] Kortney Saldana NP 09/26/2024 2:00 PM EDT Office Visit Urogynecology [address] [phone] Brit Gaston MD Hematuria, unspecified type (Primary Dx); Rectocele; Incomplete bladder emptying; Vulvovaginal itching 09/25/2024 11:30 AM EDT Clinical Support [address] [place] [phone] Vitamin B12 deficiency (Primary Dx) 09/02/2024 11:15 AM EDT Office Visit [address] [phone] Sangeetha Sage MD Encounter for annual wellness visit (AWV) in Medicare patient (Primary Dx); Type 2 diabetes mellitus with stage 3 chronic kidney disease, without long-term current use of insulin, unspecified whether stage 3a or 3b CKD ([facility] V24, [facility] V28); Primary hypertension; Hypothyroidism due to acquired atrophy of thyroid; Pure hypercholesterolemia; Postmenopausal bleeding 08/07/2024 10:30 AM EDT Clinical Support [address] [phone] Vitamin B12 deficiency (Primary Dx) from Last 3 Months Immunizations Name Administration Dates Next Due Influenza Quadravalent, MDCK , 0.5ml, with preservative (Flucelvax) 6mo and older 02/15/2017 Influenza trivalent, 0.5mL ( Fluzone High-dose) 65yo and older 11/14/2022,11/23/2021,03/15/2021,11/17,12/27/2018,12/05/2017 Influenza trivalent, with pr eservative (Fluzone; Afluria) 6mo and older 12/17/2015,11/13/2014,12/31/2013,10/30,11/01/2010,11/09/2009,12/04/2006 ,01/22/2006,12/08/2004 Pneumococcal conjugate 13 va lent (Prevnar 13, PCV13) 2mo and older 04/16/2014 Pneumococcal conjugate 20 va lent (Prevnar 20, PCV 20) 2mo and older 07/12/2024 Pneumococcal polysaccharide 23 valent (Pneumovax 23) 2yo and older 11/09/2009,09/15/2004 Td Tetanus diptheria (Tdvax) 7yo and older 12/17/2015,09/15/2004 Surgical History Surgery Date Site/Laterality Comments VENTRAL HERNIA REPAIR 02/13/2014 - 02/12/2015 ESOPHAGOGASTRODUODENOSCOPY 09/2005 Gastritis Bx reactive gastropathy. 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 Esophageal reflux 08/12/2005 Essential hypertension, benign 02/21/2005 Proteinuria 04/25/2010 SBO (small bowel obstruction ) [place] [place] [facility] [place]) 05/26/2010 Stroke ([facility], [facility] V28) 05/26/2010 Vitamin B12 deficiency 03/12/2016 Pelvic fracture ([facility] , [facility] V28) 04/12/201703/02 left pubic ramus and acetabular fx secondary to a fall Adnexal cyst 03/31/2022 Hip fracture ([facility], [facility] V28) 10/06 left hip femoral neck fx, hemiarthroplasty Constipation 08/12/2005 Depression 08/12/2005 DNR (do not resuscitate) 03/17/2023 MOL f orm completed 03/17/2023 Cardiopulmonary resuscitation - do not resuscitate Ventilation for a patient in respiratory distress - do not intubate or ventilate Transfer to hospital - transfer to hospital Dialysis - no dialysis Artificial nutrition - no artificial nutrition Artificial hydration - use artificial hydration Hypothyroidism 02/21/2005 Irritable bowel syndrome 11/28/2005 DM (diabetes mellitus), type 2 with renal complications ([facility] V24, [facility] V28) 02/21/2024 Family History Medical History Relation Name [...] Record ed Within the last 3 months, ho w many times did you visit the emergency [...] care for your loved ones. For example, children's librarian or elderly care for an older adult? [...] Sexual Orientation Not on file Obstetrics History Para Term AB IAB SAB Ectopic Multiple Livin g Live Births 1 1 1 1 1 Date Outcome GA Total Labor Labor/2nd/3rd Weight Sex Type Anes PTL Cha A1 A5 Name Clin Term Living Last Filed Vital Signs Vital Sign Reading Time Taken Comments Blood Pressure 158/82 10/09/2024 9:40 AM EDT Pulse 74 10/09/2024 9:19 AM EDT Temperature 36.1 C (97 F) 10/09/2024 9:19 AM EDT Respiratory Rate 14 10/09/2024 9:19 AM EDT Oxygen Saturation 93% 10/09/2024 9:19 AM EDT Inhaled Oxygen Concentration - - Weight 54.1 kg (119 lb 4.8 oz) 10/09/2024 9:19 A M EDT Height 160 cm (5' 3 ) 10/09/2024 9:19 AM EDT Body Mass Index 21.13 10/09/2024 9:19 AM EDT Plan of Treatment Upcoming Encounters Date Type Department Care Team (Late st Contact Info) Description 11/14/2024 9:15 AM EDT Office Visit [facility] [address] [place], [place] [phone] Nga Ruelas DO [address] [place], [place] 11/20/2024 1:30 PM EDT Clinical Support Adult Medicine [address] [phone] 12/26/2024 2:00 PM EST Procedure visit Urogynecology [address] [phone] Kortney Saldana NP [address] [place] [address] 01/03/2025 11:15 AM EST Office Visit Adult [address] [phone] Sangeetha Sage MD [address] [place] [address] 01/08/2025 3:15 PM EST Office Visit Urogynecology [address] [phone] Brit Gaston MD [address] [place] [address] [address] [place] [address] 09/04/2025 11:15 AM EDT Office Visit [address] [phone] Sangeetha Sage MD [address] [place] [address] Health Maintenance Due Date Last Done Comments COVID-19 Vaccine (#1) 02/13/1950 Zoster Vaccines (1 of 2) 02/13/1963 RSV Immunization Adult Patients (1 - 1-dose 75+ series) 02/13/2019 Osteoporosis Screening (Bone Density Screening) 01/22/2022 Influenza Vaccine (#1) 2024 , 11/23/2021, 03/15/2021, Additional history exists Diabetes: Annual Foot Exam 01/01/2025 01/02/2024 Diabetes: Blood Sugar Control Test (HGBA1C) 03/05/2025 09/02/2024, 12/28/2023, 07/19/2023, Additional history exists Diabetes: Annual Urine Albumin-Creatinine Ratio (uACR) 09/02/2025 09/02/2024, 07/19/2023 Diabetes: Annual GFR (Glomerular Filtration Rate) 09/02/2025 09/02/2024, 12/28/2023, 07/19/2023, Additional history exists Falls Risk Assessment 09/02/2025 09/02/2024 , 09/02/2024, 04/07/2023 Hypertension/CHF/CAD Annual BMP Blood Test 09/02/2025 09/02/2024, 12/28/2023, 07/19/2023, Additional history exists Medicare Annual Wellness Visit 09/02/2025 09/02/2024 Social Influencers of Health Screening 09/02/2025 09/02/2024 Diabetes: Annual Retina Eye Exam 09/03/2025 09/03/2024 DTaP,Tdap,and Td Vaccines (3 - Td or Tdap) 12/16/2025 12/17/2015, 09/15/2004 Cholesterol Screening (Lipid Panel) 09/02/2029 09/02/2024, 07/19/2023, 07/19/2023 Pneumococcal Vaccine: 50+ Years Completed 07/12/2024, 04/16/2014, 11/09/2009, Additional history exists Depression Screening Completed 09/02/2024, 07/19/19 HIB Vaccines Aged Out No longer eligi [...] age to complete this topic Meningococcal B Vaccine Aged Out No l onger eligible based on patient's age to complete this topic RSV Immunization Patients Under 20 months Aged Out No longer eligible based on patient's age to complete this topic Varicella Vaccines Aged Out No longer eligible based on patient's age to complete this topic Procedures Procedure Name Priority Date/Time Associated Diagnosis Comments TRICHOMONAS VAGINALIS ANTIGEN Routine 09/26/2024 3:04 PM EDT Vulvovaginal itching WET PREP, GENITAL Routine 09/26/2024 3:0 4 PM EDT Vulvovaginal itching CULTURE URINE Routine 09/26/2024 3:04 PM EDT Hematuria, unspecified type POC URINE AUTO W/O MICRO Routine 09/26/2024 2:29 PM EDT Rectocele Incomplete bladder emptying EXTERNAL DIABETIC RETINA EYE EXAM 09/03/2024 HEMOGLOBIN A1C Routine 09/02/2024 12:06 PM EDT Type 2 diabetes mellitus with stage 3a chronic kidney disease, without long-term current use of insulin ([facility] V24, [facility] V28) Primary hypertension Gastroesophageal reflux disease, unspecified whether esophagitis present Hypothyroidism due to acquired atrophy of thyroid Pure hypercholesterolemia Vitamin B12 deficiency Microalbuminuria Idiopathic osteoporosis MICROALBUMIN CREATININE URINE RATIO Routine 09/02/2024 12:06 PM EDT Type 2 diabetes mellitus with stage 3a chronic kidney disease, without long-term current use of insulin ([facility] V24, [facility] V28) Primary hypertension Gastroesophageal reflux disease, unspecified whether esophagitis present Hypothyroidism due to acquired atrophy of thyroid Pure hypercholesterolemia Vitamin B12 deficiency Microalbuminuria Idiopathic osteoporosis COMPLETE BLOOD COUNT Routine 09/02/2024 12:06 PM EDT Type 2 diabetes mellitus with stage 3a chronic kidney disease, without long-term current use of insulin ([facility] V24, [facility] V28) Primary hypertension Gastroesophageal reflux disease, unspecified whether esophagitis present Hypothyroidism due to acquired atrophy of thyroid Pure hypercholesterolemia Vitamin B12 deficiency Microalbuminuria Idiopathic osteoporosis LIPID PANEL WITH REFLEX TO DIRECT LDL Routine 09/02/2024 12:06 PM EDT Type 2 diabetes mellitus with stage 3a chronic kidney disease, without long-term current use of insulin ([facility] V24, [facility] V28) Primary hypertension Gastroesophageal reflux disease, unspecified whether esophagitis present Hypothyroidism due to acquired atrophy of thyroid Pure hypercholesterolemia Vitamin B12 deficiency Microalbuminuria Idiopathic osteoporosis COMPREHENSIVE METABOLIC PANEL Routine 09/02/2024 12:06 PM EDT Type 2 diabetes mellitus with stage 3a chronic kidney disease, without long-term current use of insulin ([facility] V24, [facility] V28) Primary hypertension Gastroesophageal reflux disease, unspecified whether esophagitis present Hypothyroidism due to acquired atrophy of thyroid Pure hypercholesterolemia Vitamin B12 deficiency Microalbuminuria Idiopathic osteoporosis DEPRESSION SCREENING Routine 07/19/2023 FALLS RISK ASSESSMENT Routine 04/07/2023 from Last 3 Months or Most Recently Relevant to Health Maintenance Results * Trichomonas vaginalis antigen (09/26/2024 3:04 PM EDT) Trichomonas vaginalis Negative Negative 09/26/2024 7:28 PM EDT [facility] Vaginal Fluid Vaginal structure / Unknown Non-blood Collection / Unknown 09/26/2024 3:04 PM EDT 09/26/2024 3:04 PM EDT us Brit Gaston MD LAB MICROBIOLOGY - GENERAL ORDE TOMAS Final Result Performing Organization Address [facility] Co de Phone Number [facility] [address] [place] [address], [place] [phone] * Wet prep, genital (09/26/2024 3:04 PM EDT) Clue Cells, Wet Prep Negative Negative 09/26/2024 7:28 PM EDT [facility] Yeast, Wet Prep Negative Negative 09/26/2024 7:28 PM EDT [facility] Trichomonas, Wet Prep Indeterminate Negative 09/26/2024 7:28 PM EDT [facility] Comment:Refer to Trichomonas antigen. Vaginal Fluid Vaginal structure / Unknown Non-blood Collection / Unknown 09/26/2024 3:04 PM EDT 09/26/2024 3:04 PM EDT us Brit Gaston MD LAB MICROBIOLOGY - GENERAL MAKENZIE MARIN Final Result Performing Organization Address [facility]/ZIP Co de Phone Number [facility] [address] [place] [address], [place] [phone] * (ABNORMAL) Culture urine (09/26/2024 3:04 PM EDT) Culture, Urine >=100,000 CFU/mL Staphylococcus lugdunensis(A) MARGAUX 09/30/2024 7:53 AM EDT [facility] Comment: Beta-lactamase negative The organism value for this result has been updated. These results have been appended to the previously preliminary verified report. Edited result: Previously reported as Gram Positive Cocci on 09/28/2024 at 1304 EDT. Urine Urinary bladder structure / Unknown Non-blood Collection / Unknown 09/26/2024 3:04 PM EDT 09/26/2024 3:04 PM EDT Narrative Organism Antibiotic Method Susceptibility Staphylococcus lugdunensis Benzylpenicillin MARGAUX Susceptible Comment:This is an a ppended report. These results have been appended to a previously preliminary verified report. Staphylococcus lugdunensis Oxacillin MARGAUX <=0.25 ug/ml: Susceptible Staphylococcus lugdunensis Gentamicin MARGAUX <=0.5 ug/ml: Susceptible Staphylococcus lugdunensis Ciprofloxacin MARGAUX <=0.5 ug/ml: Susceptible Staphylococcus lugdunensis Levofloxacin MARGAUX 0.5 ug/ml: Susceptible Staphylococcus lugdunensis Vancomycin MARGAUX <=0.5 ug/ml: Susceptible Staphylococcus lugdunensis Tetracycline MARGAUX <=1 ug/ml: Susceptible Staphylococcus lugdunensis Nitrofurantoin MARGAUX <=16 ug/ml: Susceptible Staphylococcus lugdunensis Rifampin MARGAUX <=0.5 ug/ml: Susceptible us Brit Gaston MD LAB MICROBIOLOGY - GENERAL MAKENZIE MARIN Final Result [facility] [address] [place] [address], * (ABNORMAL) POC Urine Auto W/O Micro (09/26/2024 2:29 PM EDT) Glucose UA POC Negative Negative, Trace mg/dL Bilirubin UA POC Negative Negative Ketones UA POC Negative Negative Specific Grady UA POC 1.010 Blood UA POC Moderate(A) Negative PH UA POC 6.5 Protein UA POC Negative Negative mg/dL Urobilinogen UA POC 4.0(A) 0.2 E.U./dL, 1.0 E.U./dL, 8 , Unable to interpret due to interfering substances mg/dL Nitrite UA POC Negative Negative Leukocytes UA POC Large(A) Negative Urine Urine specimen obtained by clean catch procedure / Unknown 09/26/2024 2:29 PM EDT Brit Gaston MD POINT OF CARE TEST ENTER/EDIT O RDERABLES Final Result * External Diabetic Retina Eye Exam Report (09/03/2024) Anatomical Region Laterality Modality Ultrasound us Provider [facility] US PROCEDURES Final Result * (ABNORMAL) Lipid panel with reflex to direct LDL (09/02/2024 12:06 PM EDT) Cholesterol 146 0 - 200 mg/dL LAB CHEMISTRY METHOD 09/02/2024 8:08 PM [facility] Triglycerides 173(H) 0 - 150 mg/dL LAB CHEMISTRY METHOD 09/02/2024 8:08 PM [facility] HDL 52 >=40 mg/dL LAB CHEMISTRY METHOD 09/02/2024 8:08 PM [facility] LDL Calculated 59 0 - 100 mg/dL LAB CHEMISTRY METHOD 09/02/2024 8:08 PM [facility] VLDL Cholesterol Glenn 34.6 mg/dL LAB CHEMISTRY METHOD 09/02/2024 8:08 PM [facility] Non HDL Chol. (LDL+VLDL) 94 <145 mg/dL LAB CHEMISTRY METHOD 09/02/2024 8:08 PM [facility] Chol/HDL Ratio 2.8 0.0 - 4.4 LAB CHEMISTRY METHOD 09/02/2024 8:08 PM [facility] Blood Venous blood specimen / Unknown Venipuncture / Unknown 09/02/2024 12:06 PM EDT 09/02/2024 12:06 PM EDT us Sandy HUMPHRIES LAB BLOOD ORDERABLES Final Re sult Performing Organization Address [facility]/ZIP Co de Phone Number [facility] [address] [place] [address], [place] [phone] * (ABNORMAL) Microalbumin creatinine urine ratio (09/02/2024 12:06 PM EDT) Creatinine, Urine 55.0 mg/dL LAB CHEMISTRY METHOD 09/02/2024 5:02 PM EDT [facility] Microalb, Ur 78.7(H) 0.0 - 29.0 mg/L LAB CHEMISTRY METHOD 09/02/2024 5:02 PM EDT [facility] Microalb/Crea t Ratio 143(H) <30 mg/g creat LAB CHEMISTRY METHOD 09/02/2024 5:02 PM EDT [facility] Urine Urine specimen from urethra / Unknown Non-blood Collection / Unknown 09/02/2024 12:06 PM EDT 09/02/2024 12:06 PM EDT us Sandy HUMPHRIES LAB URINE ORDERABLES Final Re sult Performing Organization Address [facility]/ZIP Co de Phone Number [facility] [address] [place] [address], [place] [phone] * (ABNORMAL) Complete blood count (09/02/2024 12:06 PM EDT) WBC 7.9 4.8 - 10.8 K/mcL LAB HEMETOLOGY METHOD 09/02/2024 4:08 PM EDT [facility] RBC 4.90(H) 3.80 - 4.80 M/mcL LAB HEMETOLOGY METHOD 09/02/2024 4:08 PM EDT [facility] Hemoglobin 14.0 11.5 - 16.0 g/dL LAB HEMETOLOGY METHOD 09/02/2024 4:08 PM EDT [facility] Hematocrit 45.4 35.0 - 47.0 % LAB HEMETOLOGY METHOD 09/02/2024 4:08 PM EDT [facility] MCV 91.9 79.0 - 98.0 [place] LAB HEMETOLOGY METHOD 09/02/2024 4:08 PM EDT [facility] MCH 28.3 27.0 - 32.0 pcg LAB HEMETOLOGY METHOD 09/02/2024 4:08 PM EDT [facility] MCHC 30.8(L) 32.0 - 37.0 g/dL LAB HEMETOLOGY METHOD 09/02/2024 4:08 PM EDT [facility] RDW 15.3(H) 11.0 - 15.0 % LAB HEMETOLOGY METHOD 09/02/2024 4:08 PM EDT [facility] Platelets 290 130 - 400 K/mcL LAB HEMETOLOGY METHOD 09/02/2024 4:08 PM EDT [facility] MPV 10.0 7.0 - 11.0 FL LAB HEMETOLOGY METHOD 09/02/2024 4:08 PM EDT [facility] NRBC 0.0 <1.0 % LAB HEMETOLOGY METHOD 09/02/2024 4:08 PM EDT [facility] NRBC Absolute 0.00 <0.10 K/mcL LAB [facility]EM[facility]OLOG[facility] Blood Venous blood specimen / Unknown Venipuncture / Unknown 09/02/2024 12:06 PM EDT 09/02/2024 12:06 PM EDT us Sandy HUMPHRIES LAB BLOOD ORDERABLES Final Re sult [facility] [address] [place] [address], [place] [phone] * Hemoglobin A1c (09/02/2024 12:06 PM EDT) [facility] Hemoglobin A1C 6.1 <6.5 % LAB CHEMISTRY METHOD 09/02/2024 9:04 PM EDT [facility] Mean Bld Glu Estim. 128 mg/dL LAB CHEMISTRY METHOD 09/02/2024 9:04 PM EDT [facility] Blood Venous blood specimen / Unknown Venipuncture / Unknown 09/02/2024 12:06 PM EDT 09/02/2024 12:06 PM EDT Sandy HUMPHRIES LAB BLOOD ORDERABLES Final Re sult [facility] [address] [place] [address], [place] [phone] * (ABNORMAL) Comprehensive metabolic panel (09/02/2024 12:06 PM EDT) [facility] Sodium 139 133 - 145 mmol/L LAB CHEMISTRY METHOD 09/02/2024 8:08 PM [facility] Potassium 4.2 3.5 - 5.5 mmol/L LAB CHEMISTRY METHOD 09/02/2024 8:08 PM [facility] Chloride 104 96 - 110 mmol/L LAB CHEMISTRY METHOD 09/02/2024 8:08 PM [facility] CO2 30 21 - 32 mmol/L LAB CHEMISTRY METHOD 09/02/2024 8:08 PM [facility] Anion Gap 5 3 - 11 LAB CHEMISTRY METHOD 09/02/2024 8:08 PM [facility] Glucose 111(H) 70 - 100 mg/dL LAB CHEMISTRY METHOD 09/02/2024 8:08 PM [facility] BUN 13 5 - 25 mg/dL LAB CHEMISTRY METHOD 09/02/2024 8:08 PM [facility] Creatinine 0.57 0.50 - 1.10 mg/dL LAB CHEMISTRY METHOD 09/02/2024 8:08 PM [facility] eGFR 92 >=60 mL/min/1. 73m2 LAB CHEMISTRY METHOD 09/02/2024 8:08 PM [facility] Comment:Calculation based on the Chronic Kidney Disease Epidemiology Collaboration (CKD-EPI) equation refit without adjustment for race. BUN/Creatinine Ratio 22.8 LAB CHEMISTRY METHOD 09/02/2024 8:08 PM [facility] Calcium 9.6 8.5 - 10.5 mg/dL LAB CHEMISTRY METHOD 09/02/2024 8:08 PM [facility] AST (SGOT) 16 10 - 42 unit/L LAB CHEMISTRY METHOD 09/02/2024 8:08 PM [facility] ALT (SGPT) 20 10 - 60 unit/L LAB CHEMISTRY METHOD 09/02/2024 8:08 PM [facility] Alkaline Phosphatase 109 42 - 121 unit/L LAB CHEMISTRY METHOD 09/02/2024 8:08 PM [facility] Total Protein 7.1 6.0 - 8.0 g/dL LAB CHEMISTRY METHOD 09/02/2024 8:08 PM [facility] Albumin 4.1 3.2 - 5.0 g/dL LAB CHEMISTRY METHOD 09/02/2024 8:08 PM [facility] Total Bilirubin 0.5 0.0 - 1.4 mg/dL LAB CHEMISTRY METHOD 09/02/2024 8:08 PM [facility] Blood Venous blood specimen / Unknown Venipuncture / Unknown 09/02/2024 12:06 PM EDT 09/02/2024 12:06 PM EDT Sandy HUMPHRIES LAB BLOOD ORDERABLES 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 Do not modify or discontinue any currently active code status orders. Care Teams Commercial Food Instructor Relationship Specialty Start Date End Date Sangeetha Sage MD [address] [place] [id number] PCP - General 08/27/04
--- OUTSIDE RECORDS SUMMARY | 2024-10-29 06:16 | XMS_ITS ---
Author Organization [address] Address [address] [place] [phone] Phone Care Team Providers Care Ampoule Examiner Name Role Phone Sangeetha Sage MD Primary Care Provider [phone] Transitional Care Management Status:Ongoing (Active) Start date:10/04/2024 Enrollment date:10/07/2024 Enrollment reason:Identified using hospital discharge data Case Team Name Relationship Phone Courtney Leo LPN Care Manager(Responsible Staf f) [phone] Continued Care and Services Coordination
--- NOTE | 2024-10-29 06:40 | ED.NAVMDI ---
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 She reports loose non bloody stools and weakness. Since Monday she has had symptoms. She denies pain but feels she has to urinate. She states when she gets sick her rectocele blocks her urine coming out. She denies fevers, n/v. She denies dysuria. She states she has not had sick contacts, traveled, or been on antibiotics. She notes she feels very weak. 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 No new deficits reported. She did try immodium to help. MD elicited complaint: diarrhea Onset (ago): day(s) (3) Associated nausea: No Associated abdominal pain: No Severity: moderate Exacerbating factors: eating Relieving factors: none Context: history of abdominal surgery Associated symptoms: loss of appetite, malaise and weakness Treatment prior to arrival: immodium Related Data Home Medications ?Medication ?Instructions ?Recorded ?Confirmed aspirin 81 mg tablet,delayed 81 mg PO BEDTIME 10/13/21 04/23/24 release (Adult Low Dose Aspirin) atenolol 50 mg tablet 50 mg PO BEDTIME 10/13/21 04/23/24 atorvastatin 20 mg tablet 20 mg PO DAILY 10/13/21 04/23/24 omega-3 fatty acids 1,000 mg 1,000 mg PO DAILY 10/13/21 04/23/24 capsule lisinopril 20 mg tablet 20 mg PO BEDTIME 03/23/22 04/23/24 calcium carbonate (Oyster Shell 500 mg PO BEDTIME 08/07/22 04/23/24 Calcium) docusate sodium 100 mg capsule 100 mg PO DAILY 12/21/22 04/23/24 clotrimazole 1 % topical cream 1 appl topical BID PRN Rash Under 09/15/23 04/23/24 Breast cholecalciferol (vitamin D3) 25 25 mcg PO DAILY 10/04/23 04/23/24 mcg (1,000 unit) capsule alendronate 70 mg tablet 70 mg PO TH 04/23/24 04/23/24 levothyroxine 100 mcg tablet 100 mcg PO DAILY@0600 04/23/24 04/23/24 loratadine 10 mg tablet 10 mg PO DAILY 04/23/24 04/23/24 Previous Rx's ?Medication ?Instructions ?Recorded clopidogrel 75 mg tablet (Plavix) 75 mg PO DAILY #30 tabs 08/09/22 tamsulosin 0.4 mg capsule 0.4 mg PO DAILY #30 caps 08/09/22 cefuroxime axetil 250 mg tablet 250 mg PO BID #14 tabs 05/19/24 cefuroxime axetil 250 mg tablet 250 mg PO BID 7 days #14 tabs 05/19/24 loperamide 2 mg tablet 2 mg PO Q4H PRN loose stool #14 05/19/24 tabs loperamide 2 mg tablet 2 mg PO Q6H PRN loose stool #14 05/19/24 tabs clotrimazole 1 % topical cream 1 appl topical BID #45 grams 06/28/24 Allergies Allergy/AdvReac Type Severity Reaction Status Date / Time propoxyphene (From Darvon) Allergy Mild UNKNOWN Verified 10/29/24 05:55 alteplase AdvReac Intermediate Itching Verified 10/29/24 05:55 metformin (Metformin) AdvReac Mild DIARRHEA, Verified 10/29/24 05:55 RASH Review of Systems Review of Systems: Constitutional : No Weight loss, No Fever, No Chills ENT/Mouth : No sore throat, No Rhinorrhea Eyes: No Swelling, No Redness Cardiovascular : No Chest Pain, No SOB, NoEdema Respiratory : No Cough, No Sputum, No Wheezing Gastrointestinal : no Nausea, no Vomiting, positive Diarrhea, no abdominal Pain, No Hematochezia, No Melena Genitourinary : No Dysuria, No Urinary Frequency, No Hematuria, No Urgency , pos hesitancy Musculoskeletal : No joint pain, No Myalgias, No Joint Swelling Skin : No Skin Lesions, No rash Neuro : No Weakness, No Numbness, No Dizziness, No Headache Psych : No Anxiety/Panic, No Depression All other systems reviewed and are negative. Gastrointestinal: Gastrointestinal: Denies nausea PMFSH Past Medical History Attestation statement: The following information was validated with the patient. Source: old records reviewed Medical History Post-traumatic osteoarthritis of right knee Hypertension Type 2 diabetes mellitus Anemia Thrombocytopenia Cerebrovascular accident Adnexal mass Occult GI bleeding Adult failure to thrive COVID-19 virus infection Major depressive disorder Intellectual disability Ischemic stroke Hernia Hypothyroidism Osteoporosis GERD (gastroesophageal reflux disease) High blood pressure Surgical History History of rectal surgery Social History Social History Household Members: None Housing: House Housing Other:: hotel Do you presently have visiting nurse or other home services: No Alcohol intake: never Comment: COUNTS CORRECT Patient Tobacco Use Status: Former Tobacco user Tobacco use type: Cigarette e-Cigarette/Vaping Use: Former Use Second Hand Smoke Exposure: No Advance Directives: Yes Advance Directives on File: Yes Advance Directives Date on File: 09/20/23 service: No Current occupational status: retired and disabled Physical Exam Vital Signs: Vital Signs: Last Vital Signs Temp 97.9 F 10/29/24 08:10 Pulse 76 10/29/24 08:10 Resp 21 H 10/29/24 08:10 BP 137/80 10/29/24 08:10 Pulse Ox 97 10/29/24 08:10 O2 Del Method Room Air 10/29/24 08:10 BMI result Body Mass Index 21.0 Appearance: Alert. Oriented X3. No acute distress. Eyes: Pupils equal, round and reactive to light. ENT: Pharynx normal. Neck: Normal inspection. Neck supple. CVS: Normal heart rate and rhythm. Pulses normal. Respiratory: No respiratory distress. Breath sounds normal. Abdomen: Soft but firm area felt in suprapubic area she denies pain. Skin: Skin warm and dry. pale skin color. Extremities: No lower extremity edema. Neuro: Oriented X 3. No motor deficit. No sensory deficit. Course Course Course Narrative: no diarrhea in 4 hours Medications Administered Discontinued Medications Generic Name Dose Route Start Last Admin Trade Name Freq PRN Reason Stop Dose Admin Lactated Ringer's 1,000 mls @ 999 mls/hr 10/29/24 06:18 10/29/24 07:33 Lr IV 10/29/24 07:18 999 mls/hr .Q1H1M ONE Administration Iohexol 100 ml 10/29/24 08:27 10/29/24 08:27 Iohexol 350 Mg/Ml 100 Ml Infus..Btl IV 10/29/24 08:28 85 ml ONCE ONE Administration Medical Decision Making Medical Decision Making MDM Narrative: 79 yo female with PMH of CVA, bells palsy, intellectual disability, GERD, hypothyroid, HTN, CAD, DM, anemia, L adnexal mass that she has declined work up for, rectocele, DNR/DNI now here with non bloody diarrhea but no pain, no fevers, no n/v. She has no fevers. She denies abd pain on exam but I suspect that she is retaining. Given her extensive hx and known mass I am going to obtain basic labs, CT scan for mass/obstruction. She declines pain medications. She will get gentle IVF. Differential Diagnosis Differential Diagnoses: The differential diagnosis associated with the presentation includes SBO, diverticular disease, colon inflammation, urinary pathology, mass Admission/Observation Consideration of admission/observation: Escalation of care including admission/observation considered labs reassuring, no UTI, CT scan chronic findings tolerating PO, refuses rehab, wants to go home Lab Data [facility] Lab Attestation statement: I reviewed the patient's lab results. 10/29/24 06:37 10/29/24 06:37 Labs: Lab Results 10/29/24 10/29/24 Range/Units 06:37 07:26 WBC 7.0 (4.8-10.8) X10*3/uL RBC 4.66 (4.20-5.50) X10*6/uL Hgb 13.2 (12.0-16.0) g/dl Hct 40.4 (37.0-47.0) % MCV 86.7 (80.0-98.0) fL MCH 28.3 (27.0-33.0) pg MCHC 32.7 (31.0-35.0) g/dl RDW 14.2 (11.0-16.0) % Plt Count 248 (160-400) X10*3/uL MPV 9.4 (9.4-12.3) fL Immature Gran % (Auto) 0.4 (0.0-0.4) % Neut % (Auto) 79.2 H (45-73) % Lymph % (Auto) 13.3 L (20-40) % [place] % (Auto) 5.4 (2-11) % Eos % (Auto) 1.1 (0-4) % Baso % (Auto) 0.6 (0-2) % Lymph # (Auto) 0.9 L (1.2-4.9) X10*3/uL [place] # (Auto) 0.4 (0.1-1.2) X10*3/uL Eos # (Auto) 0.1 (0.0-0.4) X10*3/uL Baso # (Auto) 0.0 (0.0-0.2) X10*3/uL Abs Immat Gran (auto) 0.03 (0.00-0.03) X10*3/uL Absolute Neuts (auto) 5.6 (2.0-8.3) x10*3/uL Absolute Nucleated RBC 0.000 (0.0-0.012) X10*3/uL Nucleated RBC % (auto) 0.0 (0.0-0.2) /100WBC Sodium 142 (135-145) mmol/L Potassium 4.0 (3.3-5.1) mmol/L Chloride 109 H (96-108) mmol/L Carbon Dioxide 23 (22-29) mmol/L Anion Gap 14 (12-20) BUN 10 (9-16) mg/dL Creatinine 0.50 (0.5-1.4) mg/dL Estim Creat Clear Calc 74.2 Estimated GFR > 60 Random Glucose 117 H (60-115) mg/dL Calcium 9.3 (8.4-10.2) mg/dL Magnesium 2.2 (1.6-2.6) mg/dL Total Bilirubin 0.6 (0.0-1.0) mg/dL AST 18 (5-31) U/L ALT 8 (0-31) U/L Alkaline Phosphatase 120 H (39-117) U/L Total Protein 6.8 (6.5-8.0) g/dL Albumin 4.1 (3.5-5.0) g/dL Lipase 10 (8-78) U/L Urine Color Yellow Urine Appearance Clear Urine pH 7.0 (5.0-9.0) Ur Specific [place] <= 1.005 (1.005-1.025) Urine Protein Negative (Neg-Trace) mg/dL Urine Glucose (UA) Negative (Negative) mg/dL Urine Ketones Negative (Negative) mg/dL Urine Blood Negative (Negative) Urine Nitrite Negative (Negative) Ur Leukocyte Esterase Negative (Negative) Independent Interpretation I performed an independent interpretation of an: EKG and CT Scan (chronic findings) Interpretation: Rate: 73 Rhythm: NSR [place]: left Normal P waves. Normal TAYLER. RBBB ST T wave : inverted t waves III, V1-V4 qTC: 486 prior studies: no change from prior The study has been interpreted contemporaneously by me. . Radiology Impression Discussion of test interpretation with radiology: I have reviewed the radiologist's reading. Independent Historian Clinical information obtained from an independent historian. History obtained from or confirmed by: Friend and EMS External Record Review External record reviewed: Inpatient record and Outpatient record Discharge Plan Discharge Clinical Impression: Weakness Diarrhea Qualifiers: Diarrhea type: unspecified type Qualified Code(s): R19.7 - Diarrhea, unspecified Patient Disposition: Home, Self-Care Instructions: Weakness (ED), Acute Diarrhea (ED) Additional Instructions: labs reassuring CT scan shows chronic findings, no urinary infection, only had 390 in bladder which we did catheterize you diarrhea while in ED tolerated PO in ED you did decline rehab return for any worsening symptoms or concerns monitor for fevers, bleeding, pain. you should eat a bland diet for [address]/CT abdomen pelvis w IV con IMPRESSION: 1. Cholelithiasis. 2. Large hiatal hernia. 3. 8.7 x 6.5 x 7.1 cm left adnexal cystic structure is seen on prior imaging. Prescriptions: No Action lisinopril 20 mg tablet 20 mg PO BEDTIME calcium carbonate [Oyster Shell Calcium] 500 mg calcium (1,250 mg) Tablet 500 mg PO BEDTIME tamsulosin 0.4 mg Capsule 0.4 mg PO DAILY Qty: 30 0RF clopidogrel [Plavix] 75 mg tablet 75 mg PO DAILY Qty: 30 0RF alendronate 70 mg tablet 70 mg PO TH levothyroxine 100 mcg tablet 100 mcg PO DAILY@0600 loratadine 10 mg Tablet 10 mg PO DAILY clotrimazole 1 % cream 1 appl topical BID Qty: 45 0RF clotrimazole 1 % cream 1 appl topical BID PRN (Reason: Rash Under Breast) loperamide 2 mg tablet 2 mg PO Q4H PRN (Reason: loose stool) Qty: 14 0RF Rx Instructions: administer after each loose stool until symptoms controlled; do not exceed 8 mg per 24 hrs cefuroxime axetil 250 mg tablet 250 mg PO BID 7 Days Qty: 14 0RF cefuroxime axetil 250 mg tablet 250 mg PO BID Qty: 14 0RF loperamide 2 mg tablet 2 mg PO Q6H PRN (Reason: loose stool) Qty: 14 0RF atorvastatin 20 mg tablet 20 mg PO DAILY omega-3 fatty acids 1,000 mg capsule 1,000 mg PO DAILY atenolol 50 mg tablet 50 mg PO BEDTIME aspirin [Adult Low Dose Aspirin] 81 mg tablet,delayed release (DR/EC) 81 mg PO BEDTIME docusate sodium 100 mg capsule 100 mg PO DAILY cholecalciferol (vitamin D3) 25 mcg (1,000 unit) capsule 25 mcg PO DAILY Print Language: Cameroonian
[2024-10-29 06:42] LABS: MANUAL DIFF FLAG NO
[2024-10-29 06:46] LABS: Hematocrit 40.4 % (37.0-47.0); Hemoglobin 13.2 g/dl (12.0-16.0); Imm Gran Abs Auto 0.03 X10*3/uL (0.00-0.03); Imm Gran Pct Auto 0.4 % (0.0-0.4); Lymphocytes Absolute Auto 0.9 X10*3/uL (1.2-4.9); Mean Corpuscular HGB Conc 32.7 g/dl (31.0-35.0); Mean Corpuscular Hemoglobin 28.3 pg (27.0-33.0); Mean Corpuscular Volume 86.7 fL (80.0-98.0); NRBC Abs Auto 0.000 X10*3/uL (0.0-0.012); NRBC Pct Auto 0.0 /100WBC (0.0-0.2); Platelet Count 248 X10*3/uL (160-400); Red Blood Count 4.66 X10*6/uL (4.20-5.50); White Blood Count 7.0 X10*3/uL (4.8-10.8)
[2024-10-29 06:56] LABS: Lipase 10 U/L (8-78)
[2024-10-29 06:57] LABS: Alanine Aminotransferase 8 U/L (0-31); Albumin Level 4.1 g/dL (3.5-5.0); Alkaline Phosphatase 120 U/L (39-117); Anion Gap 14 (12-20); Aspartate Amino Transferase 18 U/L (5-31); Blood Urea Nitrogen 10 mg/dL (9-16); Calcium 9.3 mg/dL (8.4-10.2); Carbon Dioxide 23 mmol/L (22-29); Chloride 109 mmol/L (96-108); Creatinine Clr Calc Pharmacy 74.2; Estimated Glomerular Filt Rate > 60; Magnesium 2.2 mg/dL (1.6-2.6); Potassium 4.0 mmol/L (3.3-5.1); Sodium 142 mmol/L (135-145); Total Protein 6.8 g/dL (6.5-8.0)
[2024-10-29 07:33] LABS: Appearance Urine Clear; Glucose Urine UA Negative (Negative); PH 7.0 (5.0-9.0); Specific Gravity - Urine <= 1.005 (1.005-1.025)
[2024-10-29] MEDS: Lactated Ringers 1,000 ML 999 ML IV (07:33)
[2024-10-29 08:10] VITALS: BP 137/80; PULSE 76; RESP 21; TEMP 36.6; O2SAT 97
[2024-10-29] MEDS: iohexoL 350 MG/ML 100 ML INFUS..BTL IV (08:27)
[2024-10-29 09:58] VITALS: BP 144/76; PULSE 78; RESP 20; O2SAT 100
[2024-10-29 10:18] VITALS: BP 144/76; PULSE 78; RESP 20; TEMP 36.9; O2SAT 100
== END 2024-10-29 10:19 | disposition home or self-care (01) ==
PROVIDERS: Emergency Provider Emergency Medicine
DX: R53.1 Weakness (principal); R19.7 Diarrhea, unspecified; I10 Essential (primary) hypertension; E11.9 Type 2 diabetes mellitus without complications; F79 Unspecified intellectual disabilities; E03.9 Hypothyroidism, unspecified
CPT/HCPCS: 36415; 74177; 80053; 81003; 83690; 83735; 85025; 93005; 96360; 96361; 99285; J7120; Q9967

== ENCOUNTER → 2024-10-29 06:17 | Outpatient (BNV) | payer MEDICARE, MEDICAID, SELFPAY | PROVIDERS: Emergency Provider Emergency Medicine; Visit Provider Radiology Diagnostic Radiology | DX: K80.20 Calculus of gallbladder without cholecystitis without obstruction (principal); K44.9 Diaphragmatic hernia without obstruction or gangrene; N83.202 Unspecified ovarian cyst, left side | CPT/HCPCS: 74177 ==

== ENCOUNTER → 2024-10-29 06:41 | Outpatient (BNV) | payer MEDICARE, MEDICAID, SELFPAY | PROVIDERS: Emergency Provider Emergency Medicine; Visit Provider Internal Medicine | DX: I45.10 Unspecified right bundle-branch block (principal); I49.9 Cardiac arrhythmia, unspecified | CPT/HCPCS: 93010 ==

== ENCOUNTER 2024-11-14 14:52 | Emergency (ER) | payer MEDICARE, MEDICAID, SELFPAY ==
--- NOTE | 2024-11-14 | ECG_ITS ---
Test Reason : SOB Blood Pressure : */* mmHG Vent. Rate : 107 BPM Atrial Rate : 107 BPM P-R Int : 174 ms QRS Dur : 120 ms QT Int : 354 ms P-R-T Axes : 24 8 -43 degrees QTcB Int : 472 ms Sinus tachycardia with Premature atrial complexes Right bundle branch block T wave abnormality, consider inferolateral ischemia Abnormal ECG When compared with ECG of 29-Oct-2024 06:41, T wave inversion now evident in Lateral leads Referred By: Generic ED Physician Electronically Signed By: BURT DEWITT
--- NOTE | ~2024-11-14 | CT_ITS ---
CLINICAL HISTORY: pain christa gto the back CT angiogram chest/pulmonary arteries with contrast Multiplanar reconstructions and MIPS Comparison: 04/22/2024 Findings: No filling defects are noted to suggest pulmonary embolus. Main pulmonary artery normal in caliber. Thoracic aorta normal caliber without dissection. Heart size normal. Great vessel origins patent. No coronary calcifications. No significant focal parenchymal abnormalities. Stable multifocal bilateral basilar scarring. No significant mediastinal or hilar adenopathy. No free pleural fluid. New severe T2 compression fracture. Degenerative change throughout the spine. Stable large hiatal hernia noted. Impression: No evidence of pulmonary embolus New severe T2 compression fracture CT angiogram abdomen and pelvis with contrast Multiplanar reconstruction and 3D processing Comparison: 06/28/2024 Findings: Abdominal aorta normal caliber without dissection. Celiac and mesenteric origins patent without stenosis. Bilateral renal artery origins patent without stenosis. Common and external iliac arteries unremarkable. Bilateral common femoral arteries within normal limits. Degenerative change lumbar spine and right hip. Left hip prosthesis. No acute bony abnormalities. Old pubic rami fractures noted. Prior ventral hernia repair material. Liver and spleen within normal limits. Pancreas and adrenal glands unremarkable. Cholelithiasis with moderate gallbladder distention. No significant focal renal abnormalities. No renal stones or hydronephrosis. No free fluid or adenopathy in the pelvis. No diverticulitis. Appendix not identified. Large cystic abnormality in pelvis is unchanged. Uterus normal size for age. Impression: No acute process This document has been electronically signed by: Douglas Nunez MD on 11/14/2024 21:12:46
--- NOTE | ~2024-11-14 | XR_ITS ---
CLINICAL HISTORY: SOB 2 view chest x-ray Comparison: CT - CT CHEST W IV CON - 04/22/24 21:45 EDT CR/SR - XR CHEST 1V - 09/15/23 12:30 EDT Findings: There is a linear opacity within the left lower lung. The right lung is clear. There is no pleural effusion. Mildly enlarged heart. Dilatation and elongation of the aorta. Moderate hiatal hernia. There is chronic deformity of the right proximal humerus. There is a moderate compression fracture of 1 of the upper thoracic spine vertebral bodies, new since the prior study. IMPRESSION: 1. Mild linear atelectasis within the left lower lung. 2. Moderate sized hiatal hernia. 3. There is a new moderate compression fracture of one of the upper thoracic spine vertebral bodies. This document has been electronically signed by: Krystal Hays MD on 11/14/2024 17:44:45
[2024-11-14 15:42] VITALS: BP 144/89; PULSE 107; RESP 19; O2SAT 100; BMI 17.7
--- NOTE | 2024-11-14 16:15 | ED.BACK ---
HPI - Back Pain/Injury General Chief Complaint: Back Pain/Injury Stated Complaint: FALL,L HIP PAIN PER EMS Time Seen by Provider: 11/14/24 16:01 History of Present Illness HPI Narrative: 79 yo female with a pmhx significant for hx CVA, HTN, CAD, hypothyroid, GERD, chronic constipation, DM, chronic anemia, mild aortic regurg, and intellectual disability, who presented with having extreme pain to her back. Patient claims that it is also in the epigastric area. Radiates to the back. It is in the scapula all the way down. Patient denies any chest pain. There is no diaphoresis. But had not had a good bowel movement. Had a previous history of constipation in the past. From home. Lives alone but has aide that comes in. No fever no chills no pain on urination. Patient is currently on clopidogrel for previous stroke. History of being on stool softeners. No trauma to the back. Related Data Home Medications ?Medication ?Instructions ?Recorded ?Confirmed aspirin 81 mg tablet,delayed 81 mg PO BEDTIME 10/13/21 04/23/24 release (Adult Low Dose Aspirin) atenolol 50 mg tablet 50 mg PO BEDTIME 10/13/21 04/23/24 atorvastatin 20 mg tablet 20 mg PO DAILY 10/13/21 04/23/24 omega-3 fatty acids 1,000 mg 1,000 mg PO DAILY 10/13/21 04/23/24 capsule lisinopril 20 mg tablet 20 mg PO BEDTIME 03/23/22 04/23/24 calcium carbonate (Oyster Shell 500 mg PO BEDTIME 08/07/22 04/23/24 Calcium) docusate sodium 100 mg capsule 100 mg PO DAILY 12/21/22 04/23/24 clotrimazole 1 % topical cream 1 appl topical BID PRN Rash Under 09/15/23 04/23/24 Breast cholecalciferol (vitamin D3) 25 25 mcg PO DAILY 10/04/23 04/23/24 mcg (1,000 unit) capsule alendronate 70 mg tablet 70 mg PO TH 04/23/24 04/23/24 levothyroxine 100 mcg tablet 100 mcg PO DAILY@0600 04/23/24 04/23/24 loratadine 10 mg tablet 10 mg PO DAILY 04/23/24 04/23/24 Previous Rx's ?Medication ?Instructions ?Recorded clopidogrel 75 mg tablet (Plavix) 75 mg PO DAILY #30 tabs 08/09/22 tamsulosin 0.4 mg capsule 0.4 mg PO DAILY #30 caps 08/09/22 cefuroxime axetil 250 mg tablet 250 mg PO BID #14 tabs 05/19/24 cefuroxime axetil 250 mg tablet 250 mg PO BID 7 days #14 tabs 05/19/24 loperamide 2 mg tablet 2 mg PO Q4H PRN loose stool #14 05/19/24 tabs loperamide 2 mg tablet 2 mg PO Q6H PRN loose stool #14 05/19/24 tabs clotrimazole 1 % topical cream 1 appl topical BID #45 grams 06/28/24 Allergies Allergy/AdvReac Type Severity Reaction Status Date / Time propoxyphene (From Darvon) Allergy Mild UNKNOWN Verified 11/14/24 15:51 alteplase AdvReac Intermediate Itching Verified 11/14/24 15:51 metformin (Metformin) AdvReac Mild DIARRHEA, Verified 11/14/24 15:51 RASH Review of Systems Review of Systems: Positive back pain Yes all other systems are reviewed and are negative PMFSH Past Medical History Attestation statement: The following information was validated with the patient. Medical History Post-traumatic osteoarthritis of right knee Hypertension Type 2 diabetes mellitus Anemia Thrombocytopenia Cerebrovascular accident Adnexal mass Occult GI bleeding Adult failure to thrive COVID-19 virus infection Major depressive disorder Intellectual disability Ischemic stroke Hernia Hypothyroidism Osteoporosis GERD (gastroesophageal reflux disease) High blood pressure Surgical History History of rectal surgery Social History Social History Household Members: None Housing: House Housing Other:: hotel Do you presently have visiting nurse or other home services: No Alcohol intake: never Comment: COUNTS CORRECT Patient Tobacco Use Status: Former Tobacco user Tobacco use type: Cigarette Smoked in Last 30 Days: No e-Cigarette/Vaping Use: Former Use Second Hand Smoke Exposure: No Use of substances other than those prescribed or required for medical reasons: No Advance Directives: Yes Advance Directives on File: Yes Advance Directives Date on File: 09/20/23 Do you have a plan to hurt others: No Plan service: No Current occupational status: retired and disabled Physical Exam Exam: Exam: Elderly sick appearing female looks stated age Appearance: Alert. Oriented X3. No acute distress. Eyes: Pupils equal, round and reactive to light. ENT: Pharynx normal. Neck: Normal inspection. Neck supple. No lymph nodes noted. No crepitus CVS: Normal heart rate and rhythm. Pulses normal. Normal S1 and S2 Respiratory: No respiratory distress. Breath sounds normal. No Wheezing. No rales Abdomen: Soft and nontender. No rigidity. No distention. good BS x4 No gross deformities noted in the back. No point tenderness in the spine. No crepitus. Skin: Skin warm and dry. Normal skin color. Normal skin turgor. Extremities: No lower extremity edema. Neurovascular intact to all extremities. No Lacerations. No Rash Neuro: Oriented X 3. No motor deficit. No sensory deficit. Moving all extermities. No slurred speech Vital Signs: Vital Signs: Last Vital Signs Temp 97.8 F 11/14/24 22:24 Pulse 89 11/14/24 22:24 Resp 18 11/14/24 22:24 BP 144/86 H 11/14/24 22:24 Pulse Ox 97 11/14/24 22:24 O2 Del Method Room Air 11/14/24 22:24 BMI result Body Mass Index 17.7 Medications Administered Discontinued Medications Generic Name Dose Route Start Last Admin Trade Name Freq PRN Reason Stop Dose Admin Hydromorphone HCl 0.5 mg 11/14/24 16:07 11/14/24 16:48 Hydromorphone Hcl 0.5 Mg/0.5 Ml Syringe IVPUSH 11/14/24 16:08 0.5 mg ONCE ONE Administration Protocol Hydromorphone HCl 0.5 mg 11/14/24 21:42 11/14/24 22:07 Hydromorphone Hcl 0.5 Mg/0.5 Ml Syringe IVPUSH 11/14/24 21:43 0.5 mg ONCE ONE Administration Protocol Sodium Chloride 500 mls @ 999 mls/hr 11/14/24 16:15 11/14/24 17:30 Ns IV 11/14/24 16:45 Infused .Q31M RADHA Infusion Iohexol 100 ml 11/14/24 18:17 11/14/24 18:18 Iohexol 350 Mg/Ml 100 Ml Infus..Btl IV 11/14/24 18:18 85 ml ONCE ONE Administration Ondansetron HCl 4 mg 11/14/24 16:07 11/14/24 16:48 Ondansetron Hcl 4 Mg/2 Ml Vial IVPUSH 11/14/24 16:08 4 mg ONCE ONE Administration Sodium Biphosphate/Sodium Phosphate 133 ml 11/14/24 16:10 11/14/24 16:51 Sodium Phosphate,[place]-Dibasic 133 Ml Enema LA 11/14/24 16:11 Not Given ONCE ONE Medical Decision Making Medical Decision Making MDM Narrative: With nursing help will try to disimpact patient. Labs ordered. Patient has pain from front going to the back with a history of hypertension history of back pain severe sudden in onset a CTA angio was ordered. Labs were ordered. Previous imaging was reviewed. Previous history of CT abdomen pelvis done in April showed no evidence of dissection. No abdominal aortic aneurysm. Patient complaining of extreme pain. From front going to the back for sudden onset. CT angio of the chest abdomen pelvis was done. Grossly negative. Bladder scan showed over 700 cc of urine postvoid.. Patient has been taking narcotics on and off. A Carver catheter was initially placed. Drained out 700 cc of urine. Patient's pain improved with time. Improved with pain medication. Urine showed no infection. Discussed with patient need for follow-up. We to keep the catheter in place until she follow-up with urology patient absolutely refused to go home with a Carver catheter. Understood the risks including retention. She has no bowel urinary incontinence. No signs of cauda equinus syndrome. She wants to go home. Patient is currently in stable condition will discharge home. Will take out the Carver with objection. In stable condition Differential Diagnosis Differential Diagnoses: The differential diagnosis associated with the presentation includes ACS, PE, pneumonia, dissection, constipation, obstruction Admission/Observation Consideration of admission/observation: Escalation of care including admission/observation considered Lab Data 11/14/24 16:40 11/14/24 17:38 Labs: Lab Results 11/14/24 11/14/24 11/14/24 Range/Units 16:40 17:38 23:51 WBC 7.2 (4.8-10.8) X10*3/uL RBC 4.77 (4.20-5.50) X10*6/uL Hgb 13.5 (12.0-16.0) g/dl Hct 40.3 (37.0-47.0) % MCV 84.5 (80.0-98.0) fL MCH 28.3 (27.0-33.0) pg MCHC 33.5 (31.0-35.0) g/dl RDW 14.1 (11.0-16.0) % Plt Count 244 (160-400) X10*3/uL MPV 9.9 (9.4-12.3) fL Immature Gran % (Auto) 0.3 (0.0-0.4) % Neut % (Auto) 75.7 H (45-73) % Lymph % (Auto) 14.7 L (20-40) % [place] % (Auto) 7.6 (2-11) % Eos % (Auto) 1.1 (0-4) % Baso % (Auto) 0.6 (0-2) % Lymph # (Auto) 1.1 L (1.2-4.9) X10*3/uL [place] # (Auto) 0.5 (0.1-1.2) X10*3/uL Eos # (Auto) 0.1 (0.0-0.4) X10*3/uL Baso # (Auto) 0.0 (0.0-0.2) X10*3/uL Abs Immat Gran (auto) 0.02 (0.00-0.03) X10*3/uL Absolute Neuts (auto) 5.4 (2.0-8.3) x10*3/uL Absolute Nucleated RBC 0.000 (0.0-0.012) X10*3/uL Nucleated RBC % (auto) 0.0 (0.0-0.2) /100WBC ESR 8 (0-20) MM/HR Sodium 143 (135-145) mmol/L Potassium 4.1 (3.3-5.1) mmol/L Chloride 110 H (96-108) mmol/L Carbon Dioxide 26 (22-29) mmol/L Anion Gap 11 L (12-20) BUN 9 (9-16) mg/dL Creatinine 0.49 L (0.5-1.4) mg/dL Estim Creat Clear Calc 65.5 Estimated GFR > 60 Random Glucose 124 H (60-115) mg/dL Calcium 8.6 D (8.4-10.2) mg/dL Total Bilirubin 0.6 (0.0-1.0) mg/dL Direct Bilirubin 0.3 (0.0-0.5) mg/dL AST 17 (5-31) U/L ALT < 6 (0-31) U/L Alkaline Phosphatase 118 H (39-117) U/L Troponin I High Sens 4.0 (<3.5-17.0) ng/L C-Reactive Protein 1.01 H (< or = 0.50) mg/dL NT-Pro-B Natriuret Pep 376.7 H (<300) pg/mL Total Protein 6.4 L (6.5-8.0) g/dL Albumin 3.9 (3.5-5.0) g/dL Lipase 7 L (8-78) U/L Urine Color Yellow Urine Appearance Clear Urine pH 7.0 (5.0-9.0) Ur Specific Flasher >= 1.030 H (1.005-1.025) Urine Protein Negative (Neg-Trace) mg/dL Urine Glucose (UA) Negative (Negative) mg/dL Urine Ketones Trace (Negative) mg/dL Urine Blood Small (1+) H (Negative) Urine Nitrite Negative (Negative) Ur Leukocyte Esterase Negative (Negative) Urine RBC >20 H (0-2) /HPF Urine WBC 0-5 (0-5) /HPF Ur Squamous Epith Cells 0-2 (0-2) /HPF Urine Bacteria None Seen (None Seen) Hyaline Casts 0-2 (0-2) /LPF Discharge Plan Discharge Clinical Impression: Strain of lumbar region, Acute urinary retention Patient Disposition: Home, Self-Care Instructions: Acute Urinary Retention in Women (ED), Low Back Strain (ED) Additional Instructions: Unable to urinate please come back to the emergency department. We did not want to take out your Carver catheter today. Please closely follow-up with your doctor. Prescriptions: No Action lisinopril 20 mg tablet 20 mg PO BEDTIME calcium carbonate [Oyster Shell Calcium] 500 mg calcium (1,250 mg) Tablet 500 mg PO BEDTIME tamsulosin 0.4 mg Capsule 0.4 mg PO DAILY Qty: 30 0RF clopidogrel [Plavix] 75 mg tablet 75 mg PO DAILY Qty: 30 0RF alendronate 70 mg tablet 70 mg PO TH levothyroxine 100 mcg tablet 100 mcg PO DAILY@0600 loratadine 10 mg Tablet 10 mg PO DAILY clotrimazole 1 % cream 1 appl topical BID Qty: 45 0RF clotrimazole 1 % cream 1 appl topical BID PRN (Reason: Rash Under Breast) loperamide 2 mg tablet 2 mg PO Q4H PRN (Reason: loose stool) Qty: 14 0RF Rx Instructions: administer after each loose stool until symptoms controlled; do not exceed 8 mg per 24 hrs cefuroxime axetil 250 mg tablet 250 mg PO BID 7 Days Qty: 14 0RF cefuroxime axetil 250 mg tablet 250 mg PO BID Qty: 14 0RF loperamide 2 mg tablet 2 mg PO Q6H PRN (Reason: loose stool) Qty: 14 0RF atorvastatin 20 mg tablet 20 mg PO DAILY omega-3 fatty acids 1,000 mg capsule 1,000 mg PO DAILY atenolol 50 mg tablet 50 mg PO BEDTIME aspirin [Adult Low Dose Aspirin] 81 mg tablet,delayed release (DR/EC) 81 mg PO BEDTIME docusate sodium 100 mg capsule 100 mg PO DAILY cholecalciferol (vitamin D3) 25 mcg (1,000 unit) capsule 25 mcg PO DAILY Referrals: Sangeetha Sage MD [Primary Care Provider, Internal Medicine] - 11/18/24 Print Language: Bol[place]ian
[2024-11-14 16:45] LABS: MANUAL DIFF FLAG NO
[2024-11-14 16:50] LABS: Hematocrit 40.3 % (37.0-47.0); Hemoglobin 13.5 g/dl (12.0-16.0); Imm Gran Abs Auto 0.02 X10*3/uL (0.00-0.03); Imm Gran Pct Auto 0.3 % (0.0-0.4); Lymphocytes Absolute Auto 1.1 X10*3/uL (1.2-4.9); Mean Corpuscular HGB Conc 33.5 g/dl (31.0-35.0); Mean Corpuscular Hemoglobin 28.3 pg (27.0-33.0); Mean Corpuscular Volume 84.5 fL (80.0-98.0); NRBC Abs Auto 0.000 X10*3/uL (0.0-0.012); NRBC Pct Auto 0.0 /100WBC (0.0-0.2); Platelet Count 244 X10*3/uL (160-400); Red Blood Count 4.77 X10*6/uL (4.20-5.50); White Blood Count 7.2 X10*3/uL (4.8-10.8)
--- OUTSIDE RECORDS SUMMARY | 2024-11-14 17:03 | XMS_ITS | Data Portability ---
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 Name Role Phone RONALDO PERAZA - 2ND [...] and Address Organization Details Recorded Time Anemia 871711416 Active 2023 Alyssa Birch NP [address] [facility], [address], [place], [address], [facility] [employer] [facility] 4 08:18:03 Adult failure to thrive syndrome 666607276 Active 2023 Alyssa Birch NP [address] [facility], [address], [place], [address], [facility] [employer] 4 08:18:14 Cerebrovascula r accident 089321252 Active 2023 Alyssa Birch NP [address] [facility] [facility], [address], [place], [address], [facility] [employer] 4 08:18:26 Gastroesophage al reflux disease 494916374 Active 2023 Alyssa Birch NP [address] [facility], [address], [place], [address], [facility] 4 08:18:36 Hypertensive disorder 17292684 Active 2023 Alyssa Birch NP [address], [address], [place], [address], [facility] [employer] 4 08:18:53 Hypothyroidism 46131569 Active 2023 Alyssa Birch NP [address] [facility], [address], [place], [address], [facility] 4 08:19:22 Major depressive disorder 793878752 Active 2023 Alyssa Birch NP [address], [address], [place], [address], [facility] 4 08:22:02 Osteoporosis 06850021 Active 2023 Alyssa Birch NP [address], [address], [place], [address], [facility] 4 08:22:29 Thrombocytopen ic disorder 734101672 Active 2023 Alyssa Birch NP [address] [facility], [address], [place], [address], [facility] 4 08:22:52 Type 2 diabetes mellitus 76259081 Active 2023 Alyssa Birch NP [address] [facility], [address], [place], [address], [facility] 4 08:23:13 Fracture of neck of femur 4911702 Active 2023 Alyssa Birch NP [address] [facility], [address], [place], [address], [facility] 4 09:10:23 Retention of urine 879778387 Active 2023 Alyssa Birch NP [address] [facility], [address], [place], [address], [facility] 4 09:15:59 Recurrent falls 441741178 Active 2023 JOSE LUIS MESA NP [address] [facility] [address], [place], [address], [facility] 4 14:26:14 Developmental delay 679767910 Active 2023 Adelina Monsalve MD [address] [facility], [facility] [address], [place], [address], [facility] 4 15:24:05 Problem Notes None recorded. Medical Equipment None Reported. Allergies Allergen ID Allergen Name Allergen Category Reaction Reaction Severity Criticality Documentation Date Start Date Code Code System Note Provider Name and Address Organization Details Recorded Time 30396 propoxyph marisa medicatio n other Not available unabletoasse 09/20/2023 8785 RxNorm unkno wn liste d as mild from acosta Birch NP [address] [place] [address], [place] [address], [place], [address], [facility] 4 07:51:30 64193 alteplase medicatio n itching Not available unabletoasse 09/20/2023 8410 RxNorm Alyssa Birch NP [address] [place] [address] [address], [place], [address], [facility] 4 07:51:45 49233 metformin medicatio n diarrhea rash Not available Not available [facility] 09/20/2023 6809 RxNorm Alyssa Birch NP [address] [place] [address] [address], [place], [address], [facility] 4 07:52:17 Medications Name Sig Start Date Stop Date [...] in Arterial blood by Pulse oximetry Systolic And Diastolic Provider Name and Address Organization Details Last Updated DateTime 4 160.02 cm 80335.4 9 g 76 /min 18 /min 97.8 [degF] 96 % 96 % 132/68 mm[Hg] Alyssa Birch NP [address] [facility] [address], [address] [place] [address] [employer] 4 08:04:26 Date Recorded Body height Body weight Heart rate Respiratory rate Body temperature Oxygen saturation Oxygen saturation in Arterial blood by Pulse oximetry Systolic And Diastolic Provider Name and Address Organization Details Last Updated DateTime 4 160.02 cm 71407.4 9 g 70 /min 17 /min 97.8 [degF] 98 % 98 % 130/68 mm[Hg] Alyssa Brich NP [address] [facility] [address], [place], [address] , [facility] [employer] 4 09:08:04 Date Recorded Body height Body weight Heart rate Respiratory rate Body temperature Oxygen saturation Oxygen saturation in Arterial blood by Pulse oximetry Systolic And Diastolic Provider Name and Address Organization Details Last Updated DateTime 4 160.02 cm 79087.2 9 g 67 /min 18 /min 97.2 [degF] 99 % 99 % 131/62 mm[Hg] Alyssa Birch NP [address] [facility] [address], [place], [address], [facility] 4 08:59:16 Date Recorded Body height Body mass index (BMI) Body weight Heart rate Respiratory rate Body temperature Oxygen saturation Oxygen saturation in Arterial blood by Pulse oximetry Systolic And Diastolic Provider Name and Address Organization Details Last Updated DateTime 4 160.02 cm 21.1 kg/m2 39878.4 9 g 70 /min 18 /min 98 [degF] 98 % 98 % 128/72 mm[Hg] Alyssa Birch NP [address] [facility], [address], [place], [address], [employer] [facility] 4 18:48:36 Date Recorded Body height Body weight Heart rate Respiratory rate Body temperature Oxygen saturation Oxygen saturation in Arterial blood by Pulse oximetry Systolic And Diastolic Provider Name and Address Organization Details Last Updated DateTime 4 160.02 cm 82532.5 3 g 72 /min 18 /min 98 [degF] 98 % 98 % 113/66 mm[Hg] Alyssa Birch NP [address] [facility], [address], [place], [address], [facility] [employer] [employer] 4 11:56:56 Social History Question Answer Notes LastModified by Organization Details LastModified Time Tobacco Smoking Status Former Smoker Alyssa Birch NP [address] [facility], [address], [place], [address], [facility] [employer] [facility] 09/20/2023 08:36:16 Do You Have An Advance Directive? Yes Information not available 09/20/2023 What Is Your Code Status? DNR/DNI Also Says DNH, But Pt Has Agreed To Several Hospitalizations Information not available 09/26/2023 Where Do You Live? SingleLevelHouse Lives Alone With 7-5 [employer] Support Through [employer] Information not available 09/26/2023 Legal Guardian? No Information not available 09/26/2023 Do You Have A Medical Power Of Oceanology Teacher? Yes Information not available 09/26/2023 What Was The Date Of Your Most Recent Tobacco Screening? 09/20/2023 Information not available 09/20/2023 Do You Have An Out Of Hospital DNR? Yes Information not available 09/20/2023 What Is Your Relationship Status? Single Information not available 09/26/2023 How Much Tobacco Do You Smoke? No States Not Smoking For Some Time Information not available 09/20/2023 Has Tobacco Cessation Counseling Been Provided? No N/A As Pt No Longer Smokes Information not available 09/26/2023 Sex: Female Functional Status Question Answer Note LastModified by Organizat ion Details LastModified Time Do you use any illicit or recreational drugs? No Information not available 09/20/2023 Do you or have you ever used any other forms of tobacco or nicotine? No Information not available 09/20/2023 What is your level of alcohol consumption? None Information not available 09/20/2023 Mental Status None recorded. Family History Nothing Reported Notes:noncontributory Medical History No medical history recorded. Gynecological HistoryNo gynecological history recorded. Obstetrics History GPAL:G 0 P 0 0 0 0 Immunizations Vaccine Type Date Status Note Provider Nam e and Address Organization Details Recorded Time Td(adult) unspecified formulation 5 completed Fatou Holly [facility] 09/21/2023 12:25:08 Td(adult) unspecified formulation 6 completed Fatou Holly [facility] 09/21/2023 12:25:15 Pneumococcal conjugate PCV 13 5 completed Fatou Holly [facility] 09/21/2023 12:25:29 pneumococcal polysaccharide PPV23 5 completed Fatou Holly [facility] 09/21/2023 12:25:56 pneumococcal polysaccharide PPV23 0 completed Fatou Holly [facility] 09/21/2023 12:26:03 influenza, unspecified formulation 2 completed Fatou Holly [facility] 09/21/2023 12:26:20 influenza, unspecified formulation 3 completed Fatou Holly [facility] 09/21/2023 12:26:27 Past Encounters Encounter ID Performer Location Encounter Start Date Encounter Closed Date Diagnosis/Indication Diagnosis SNOMED-CT Code Diagnosis ICD10 Code Diagnosis IMO Codes Diagnosis Note [id number] Alyssa Birch NP [facility] [address] [place] [address] 09/20/2023 07:44:42 09/26/2023 14:31:10 Fracture of neck of femur 2308282 S72.002E pt underwendt left hip replacemen t [...] dressing c/d/amada driving for 6 weeksfu with [facility] in 2 weeks Major depr essive disorder 397105466 F32.9 with request psych consult for depression likely depression has been ongoing but seems worse with new defecitnot on any meds for thismonito r Adult fail ure to thrive syndrome 827683647 R62.7 Pt with wgt loss prior to coming here and continues to eat poorlymoni tor wgt 2x weeklydiet matilde consult for supplement smonitor closely Cerebrovas cular accident 781058224 I63.9 cva historyasp irin 81 mg po qhsatorvas tatin 20 mg po dailymonit or Asthenia 15575367 R53.1 with hx of cva and now left hip surgeryPT OT eval and treat as abovemonit or Type 2 erlin betes mellitus 36941587 E11.9 hx of in dc summaryno meds listednow with decreased eatingwill get ha1c and monitor Osteoporosis 95306294 M8 1.0 calcium 500 mg po qhsmonitor Thrombocyt openic disorder 158932709 D69.6 hx ofmonitor cbc weekly Hypothyroidism 45917208 E03.9 levothyrox ine 88 mcg daily 0600monito r tsh today and prn Hypertensive disorder 38 447820 I10 atenolol 50 mg po qhslisinop ril 20 mg qhsmonitor bp daily Gastroesop hageal reflux disease 759191602 K21.9 not on any meds for this, hx ofmonitor Anemia 888256827 D64.9 hx of and now with new left hip fxmonitor weekly cbc for bloodloss* amendmen t with hgb 6.7 and hct 23.2 today and pale, feels awful, willing to get tranfusion in ER today. will send Retention of urine 09023 4002 R33.9 she failed a voiding trial in the hospital prior to being transferre d to [facility] and retry voiding trial on losin 0.4mg po dailymonit or for distention or s/s of infection [id number] JOSE LUIS MESA NP [address] [address] 09/23/2023 14:00:41 09/26/2023 15:55:11 Recurrent falls 373426002 R29.6 PT OT eval and treatfall precaution sfrequent safety checks Fracture o f neck of femur 9282015 S72.002E pt underwendt left hip replacemen t with kin accolade 2 #4 on 09/17/[address] Manning09/19 will increase oxycodone 5 mg po bid and q 4 hours prn8/7 start tylenol 1000 mg po tiddocusat e 100 mg po qhsmiralax 17 gram po dailysenna 17.2mg po daily prnortho planplavix and asa for ac prophylaxi s, was on this for cva prior alsoPT OT eval and treat: posterior precaution s, gait training, ROM, strengthen ing, limit stair climbingno showering, no tub bath- keep dressing c/d/amada driving for 6 weeksfu with [facility] in 2 weeks Major depr essive disorder 844601990 F32.9 with request psych consult for depression likely depression has been ongoing but seems worse with new defecitnot on any meds for thismonito r Adult fail ure to thrive syndrome 510625653 R62.7 Pt with wgt loss prior to coming here and continues to eat poorlymoni tor wgt 2x weeklydiet matilde consult for supplement smonitor closely Cerebrovas cular accident 540311476 I63.9 cva historyasp irin 81 mg po qhsatorvas tatin 20 mg po dailyplavi x 75mg dailymonit or Asthenia 48993452 R53.1 with hx of cva and now left hip surgeryPT OT eval and treat as abovemonit or Type 2 erlin betes mellitus 14653718 E11.9 hx of in dc summaryno meds listednow with decreased eatingwill get ha1c and monitor Osteoporosis 23450445 M8 1.0 calcium 500 mg po qhsmonitor Thrombocyt openic disorder 420786597 D69.6 hx ofmonitor cbc weekly Hypothyroidism 02296534 E03.9 levothyrox ine 88 mcg daily 0600monito r tsh today and prn Hypertensive disorder 38 005839 I10 atenolol 50 mg po qhslisinop ril 20 mg qhsmonitor bp daily Gastroesop hageal reflux disease 557005618 K21.9 not on any meds for this, hx ofmonitor Retention of urine 06718 4002 R33.9 she failed a voiding trial in the hospital prior to being transferre d to [facility] and retry voiding trial on losin 0.4mg po dailymonit or for distention or s/s of infection [id number] Adelina Monsalve MD [address] [address] 09/26/2023 13:32:33 09/27/2023 13:15:18 Anemia 251328874 D62 D64.89 Mild at baseline likely due [...] labs. Fracture o f neck of femur 7439086 S72.042D S/P hemiarthro plasty on 09/16.Has been [...] ortho as planned. Major depr essive disorder 853983051 F32.89 In hx, followed by [facility] , on no meds.Mood good today.Leela tor mood.Consu lt psych Adult fail ure to thrive syndrome 269189989 R62.7 Reported hx of wt loss and poor po intake at home.Encou rage po intake here (says she doesn't like the food).Cons ider supplement s.Monitor wts and labs.Bettye bernardo consult. Cerebrovas cular accident 492996019 I63.89 With multiple old CVAs on MRI from 09/2022No recent sxs.Contin ue ASA 81 mg qd and atorvastat in 20 mg qd.Monitor for new sxs. Asthenia 71388666 R53.1 PT/OT as above.Enco urage activity. Type 2 erlin betes mellitus 24093624 E11.9 Last HgA1C I can find was 6.0 in 02/2023.Fin gersticks inpt with only one reading >200.Diet controlled at home.Monit or prn Osteoporosis 76754565 M8 1.0 Continue calcium 500 mg qdWill add vitamin D 1000 IU qd and get level with next labs.Monit or as outpt. Hypothyroidism 88784105 E03.8 Last TSH in system from 09/2022 was nl.Continu e levothyrox ine 88 mcg qdWill order TSH with next labs. Hypertensive disorder 38 629323 I10 In good control on atenolol 50 mg qd and lisinopril 20 mg qd.Monitor BP and labs. Gastroesop hageal reflux disease 426743527 K21.9 With recent heme+ stool.GI felt no urgent need for endoscopy unless hgb drops again.Curr ently stable and with no sxs.Monito r. Retention of urine 14375 4002 R33.8 she failed a voiding trial in the hospital prior to being transferre d to [facility] and retry voiding trial on losin 0.4mg po dailymonit or for distention or s/s of infection Chronic constipation 236 731320 K59.09 Continue bowel meds as ordered.Mo nitor bowel function. Developmental delay 4569 [address]Able to make her own decisions. SS to f/u with outpt providers and director of casework department to plan d/c, [id number] Alyssa Birch NP [address] [address] 10/02/2023 09:37:39 10/06/2023 15:54:19 Fracture of neck of femur 2146969 S72.042D S/P hemiarthro plasty on 09/16.Has been [...] for safety.F/U with ortho as planned. Anemia 988416994 D62 D64.89 Mild at baseline likely due [...] reevalMoni tor labs. Major depr essive disorder 004215217 F32.89 In hx, followed by [facility] , on no meds. worker at bedside without concerns todayMood good today.Leela tor mood.Consu lt psych Adult fail ure to thrive syndrome 302375987 R62.7 Reported hx of wt loss and poor po intake at home.Encou rage po intake here (says she doesn't like the food).diet marlena consulted, Consider supplement s.Monitor wts and labs.Bettye bernardo consult. Cerebrovas cular accident 367950647 I63.89 With multiple old CVAs on MRI from 09/2022No recent sxs.Contin ueASA 81 mg qdatorvast atin 20 mg qd.Monitor for new sxs. Asthenia 88640365 R53.1 PT/OT as above.Enco urage activity. Type 2 erlin betes mellitus 94100834 E11.9 Last HgA1C I can find was 6.0 in 02/2023.Fin gersticks inpt with only one reading >200.Diet controlled at home.Monit or prn Osteoporosis 53302824 M8 1.0 Continueca lcium 500 mg qdvitamin D 1000 IU qd and level with next labs.(pend ing)Monito r as outpt. Hypothyroidism 37202132 E03.8 Last TSH in system from 09/2022 was nl.Continu e levothyrox ine 88 mcg qdTSH with next labs(pendi ng). Hypertensive disorder 38 531056 I10 In good control, stablecont atenolol 50 mg qdlisinopr il 20 mg qd.Monitor BP and labs. Gastroesop hageal reflux disease 683651421 K21.9 With recent heme+ stool.GI felt no urgent need for endoscopy unless hgb drops again.Curr ently stable and with no sxs.10/01 due to heme positive stools and need for transfusio n recently will start omeprazole 40 mg po daily x 6 weeksMonit or closely Retention of urine 40720 4002 R33.8 she failed a voiding trial in the hospital prior to being transferre d to rehabfoley placed for retention on 09/30/23, awaiting UA from 09/29 if not already done, not resulted, repeat if not sentassess for underwood removal next week on 10/08 , with 2 failed trialscont tamulosin 0.4mg po dailymonit or for distention or s/s of infection Chronic constipation 236 941922 K59.09 Continue bowel meds as ordered.Mo nitor bowel function. Developmental delay 8402 [address] F[address]Able to make her own decisions. SS to f/u with outpt providers and director of casework department to plan d/c, [id number] Alyssa Birch NP [address] [address] 10/04/2023 15:25:04 10/09/2023 08:53:46 Retention of urine 359580135 R33.8 she failed a voiding trial in the hospital prior to being transferre d to rehabfoley placed for retention on 09/30/23,as sess for underwood removal next week on 10/08 , with 2 failed trials and need to finish abx for UTIconttam ulosin 0.4mg po dailymonit or for distention or s/s of infection Fracture o f neck of femur 9596039 S72.042D S/P hemiarthro plasty on 09/16. 10/03 Ortho C appt rec:encour age pain medication prior to therapy for maximizati on fo PTOOB w all meals to encourage mobilityPT orders; WBAT, posterior precaution s, gait training, rom, strength sp left hip hemifu in [address] [place]ningcon toxycodone 5 mg q 4 hrs prn [...] for safety.F/U with ortho as planned. Anemia 473300867 D62 D64.89 Mild at baseline likely due [...] ito r labs. Gastroesop hageal reflux disease 728108309 K21.9 With recent heme+ stool.GI felt no urgent need for endoscopy unless hgb drops again.Curr ently stable and with no sxs.due to heme positive stools and need for transfusio n recently will start omeprazole 40 mg po daily x 6 weeks started on ito r closely, labs stable this week Major depr essive disorder 412518606 F32.89 In hx, followed by [facility] , on no meds. worker at bedside without concerns todayMood good today.Leela tor mood.Consu lt psych Adult fail ure to thrive syndrome 126284731 R62.7 Reported hx of wt loss and poor po intake at home.Encou rage po intake here (says she doesn't like the food).diet marlena consulted, Consider supplement s.Monitor wts and labs.Bettye bernardo consult. Cerebrovas cular accident 248807773 I63.89 With multiple old CVAs on MRI from 09/2022No recent sxs.Contin ueASA 81 mg qdatorvast atin 20 mg qd.Monitor for new sxs. Asthenia 81559000 R53.1 PT/OT as above.Enco urage activity. Type 2 erlin betes mellitus 27348230 E11.9 stableLast HgA1C I can find was 6.0 in 02/2023.Fin gersticks inpt with only one reading >200.Diet controlled at home.Monit or prn Osteoporosis 50366898 M8 1.0 Continueca lcium 500 mg qdvitamin D 1000 IU qd and level with next labs.(pend ing)Monito r as outpt. Hypothyroidism 80097648 E03.8 Last TSH in system from 09/2022 was nl.Continu elevothyro xine 88 mcg qdTSH with next labs(pendrafiq hull). Hypertensive disorder 38 704962 I10 In good control, stablecont atenolol 50 mg qdlisinopr il 20 mg qd.Monitor BP and labs. Chronic constipation 236 426457 K59.09 Continue bowel meds as ordered.Mo nitor bowel function. Developmental delay 3952 [address]13 F70 Has services in [address].Able to make her own decisions. SS to f/u with outpt providers and director of casework department to plan d/c, Urinary tr act infectious disease 76032914 N39.0 She remains with underwood in place after failed voiding trial on the weekend.A urinalysis was sent and culture back with >100,000 ecoli susceptibl e to cipro.Will start cipro 500 mg po bid x 5 days with probiotic. [id number] Alyssa Birch NP [address] [address] 10/11/2023 09:28:00 10/18/2023 11:03:58 Urinary tract infectious disease 76746124 N39.0 resolvingS he remains with underwood in place after failed voiding trial on the weekend.A urinalysis was sent and culture back with >100,000 ecoli susceptibl e to cipro.comp leted cipro 500 mg po bid x 5 dayson 10/09 with probiotic. cont to monitor for reoccurenc e Retention of urine 01479 4002 R33.8 she failed a voiding trial in the hospital prior to being transferre d to rehabfoley placed for retention with 2 failed trials10/10 remove under[place] today for irritation /paincontt amulosin 0.4mg po dailymonit or for distention or s/s of infection Fracture o f neck of femur 4745799 S72.042D S/P hemiarthro plasty on 09/16. of [...] for safety.F/U with ortho as planned. Anemia 976943179 D62 D64.89 Mild at baseline likely due [...] for next monday Gastroesop hageal reflux disease 547742772 K21.9 With recent heme+ stool.GI felt no urgent need for endoscopy unless hgb drops again.Curr ently stable and with no sxs.due to heme positive stools and need for transfusio n recentlyco ntomeprazo le 40 mg po daily x 6 weeks started on 10/01Monito r closely, labs stable this week Major depr essive disorder 192812485 F32.89 In hx, followed by [facility] , on no meds. worker at bedside without concerns todayMood good today.Leela tor mood.Consu lt psych Adult fail ure to thrive syndrome 762769586 R62.7 Reported hx of wt loss and poor po intake at home.Encou rage po intake here (says she doesn't like the food).dania mendiola consulted, Consider supplement s.Monitor wts and labs.Bettye bernardo consult. Cerebrovas cular accident 261020437 I63.89 With multiple old CVAs on MRI from 09/2022No recent sxs.Contin ueASA 81 mg qdatorvast atin 20 mg qd.Monitor for new sxs. Asthenia 51711396 R53.1 PT/OT as above.Enco urage activity. Type 2 erlin betes mellitus 25005219 E11.9 stableLast HgA1C I can find was 6.0 in 02/2023.Fin gersticks inpt with only one reading >200.Diet controlled at home.Monit or prn Osteoporosis 38178652 M8 1.0 Continueca lcium 500 mg qdvitamin D 1000 IU qd and level with next labs.(pend ing)Monito r as outpt. Hypothyroidism 64330933 E03.8 Last TSH in system from 09/2022 was nl.Continu elevothyro xine 88 mcg qdTSH with next labs(pendi ng for next week) Hypertensive disorder 38 818772 I10 In good control, stablecont atenolol 50 mg qdlisinopr il 20 mg qd.Monitor BP and labs. Developmental delay 6212 [address].Able to make her own decisions at this time.SS to f/u with outpt providers and director of casework department to plan d/c, [id number] Alyssa Birch NP [address] [address] 10/12/2023 08:03:03 10/18/2023 11:30:23 Urinary tract infectious disease 00867275 N39.0 resolvingS he remains with underwood in place after failed voiding trial on the weekend.A urinalysis was sent and culture back with >100,000 ecoli susceptibl e to cipro.comp leted cipro 500 mg po bid x 5 days on 10/09 with probiotic. cont to monitor for reoccurenc e Retention of urine 95906 4002 R33.8 she failed a voiding trial in the hospital prior to being transferre d to rehabfoley placed for retention with 2 failed trials10/10 remove underwood today for irritation /pain10/11 under[place] reinserted for distension and 1600 cc removed via straight cath, then 1000cccont tamulosin 0.4mg po daily10/11 [facility] for urinary retentionm onitor for distention or s/s of infection Fracture o f neck of femur 9034241 S72.042D S/P hemiarthro plasty on 09/16. of [...] for safety.F/U with ortho as planned. Anemia 790200505 D62 D64.89 Mild at baseline likely due [...] for next monday Gastroesop hageal reflux disease 965836518 K21.9 With recent heme+ stool.GI felt no urgent need for endoscopy unless hgb drops again.Curr ently stable and with no sxs.due to heme positive stools and need for transfusio n recentlyco ntomeprazo le 40 mg po daily x 6 weeks started on 10/01Monito r closely, labs stable this week Major depr essive disorder [id number] F32.89 In hx, followed by [facility] , on no meds. worker at bedside without concerns todayMood good today.Leela tor mood.Consu lt psych Adult fail ure to thrive syndrome 276153354 R62.7 Reported hx of wt loss and poor po intake at home.Encou rage po intake here (says she doesn't like the food).diet ician consulted, Consider supplement s.Monitor wts and labs.Bettye bernardo consult. Cerebrovas cular accident [id number] I63.89 With multiple old CVAs on MRI from 09/2022No recent sxs.Contin ueASA 81 mg qdatorvast atin 20 mg qd.Monitor for new sxs. Asthenia 07962548 R53.1 PT/OT as above.Enco urage activity. Type 2 erlin betes mellitus 20995520 E11.9 stableLast HgA1C I can find was 6.0 in 02/2023.Fin gersticks inpt with only one reading >200.Diet controlled at home.Monit or prn Osteoporosis 14797915 M8 1.0 Continueca lcium 500 mg qdvitamin D 1000 IU qd and level with next labs.(pend ing)Monito r as outpt. Hypothyroidism 25626809 E03.8 Last TSH in system from 09/2022 was nl.Continu elevothyro xine 88 mcg qdTSH with next labs(pendi ng for next week) Hypertensive disorder 38 035097 I10 In good control, stablecont atenolol 50 mg qdlisinopr il 20 mg qd.Monitor BP and labs. Developmental delay 2482 [address]75 F70 [address] services [address]Able to make her own decisions at this time.SS to f/u with outpt providers and director of casework department to plan d/c, Mass of ovary 110771855 R19.09 has been dx with ovarian mass 2022, non surgical and follows with dr mojica. noted as a cyst in h & p in obgyn note from e remains asymptomat ic with cystcont to monitor and fu with obgyn if further concerns [id number] Alyssa Birch NP [address] [address] 10/20/2023 09:07:02 10/24/2023 09:40:46 Mass of ovary 574491473 R19.09 has been dx with ovarian mass [...] obgyn if further concerns Retention of urine 35719 4002 R33.8 she failed 3 voiding trials in the hospital prior [facility] [place] [facility] regular carechange underwood to leg bag during day and switch to bag at nighttamul osin 0.4mg po daily10/11 fu [facility] for urinary retention, awaiting appt nsg aware today onitor for distention or s/s of infection Urinary tr act infectious disease 86390992 N39.0 resolvingS he remains with underwood in place after failed voiding trial on the weekend.A urinalysis was sent and culture back with >100,000 ecoli susceptibl e to cipro.comp leted cipro 500 mg po bid x 5 days on 10/09 with probiotic. cont to monitor for reoccurenc e Fracture o f neck of femur 4699179 S72.042D S/P hemiarthro plasty on 09/16. of note:10/03 Ortho [facility] appt rec:encour age pain medication prior to [...] for safety.F/U with ortho as planned. Anemia 607401049 D62 D64.89 Mild at baseline likely due [...] stable as above Gastroesop hageal reflux disease 812929587 K21.9 With recent heme+ stool.GI felt no urgent need for endoscopy unless hgb drops again.Curr ently stable and with no sxs.due to heme positive stools and need for transfusio n recentlyco ntomeprazo le 40 mg po daily x 6 weeks started on 10/01Monito r closely, labs stable this week Major depr essive disorder 210383622 F32.89 In hx, followed by [facility] , on no meds. worker at bedside without concerns todayMood good today.Leeal tor mood.Consu lt psych Adult fail ure to thrive syndrome 376027705 R62.7 Reported hx of wt loss and poor po intake at home.Encou rage po intake here (says she doesn't like the food).diet marlena consulted, Consider supplement s.Monitor wts and labs.Bettye bernardo consult. Cerebrovas cular accident [id number] I63.89 With multiple old CVAs on MRI from 09/2022No recent sxs.Contin ueASA 81 mg qdatorvast atin 20 mg qd.Monitor for new sxs. Asthenia 42130372 R53.1 PT/OT as above.Enco urage activity. Type 2 erlin betes mellitus 19675198 E11.9 stableLast HgA1C I can find was 6.0 in 02/2023.Fin gersticks inpt with only one reading >200.Diet controlled at home.Monit or prn Osteoporosis 51546234 M8 1.0 Continueca lcium 500 mg qdvitamin D 1000 IU qd and level with next labs.(pend ing)Monito r as outpt. Hypothyroidism 26425444 E03.8 Last TSH in system from 09/2022 was nl.Continu elevothyro xine 88 mcg qdTSH stable at 3.94 on onitor prn Hypertensive disorder 38 979356 I10 In good control, stablecont atenolol 50 mg qdlisinopr il 20 mg qd.Monitor BP and labs. Developmental delay 0773 13268 F70 Has services in place.Able to make her own decisions at this time.SS to f/u with outpt providers and director of casework department to plan d/c, [id number] Alyssa Birch NP [address] [place] [address] 10/23/2023 08:12:07 10/25/2023 09:54:21 Mass of ovary 998881959 R19.09 has been dx with ovarian mass [...] follows her for this Retention of urine 96935 4002 R33.8 she failed 3 voiding trials in the hospital prior to being transferre d to rehab10/22 refuses to have underwood left in today, will remove with voiding trial and no bladder scan avail, void in hat and record, straight cath if no urine outpt in 12 hours and replace underwood if greater than 350cctamul osin 0.4mg po daily fu with [facility] for urinary retention, nsg to schedulemo nitor for distention or s/s of infection Urinary tr act infectious disease 02852846 N39.0 resolvedco mpleted cipro 500 mg po bid x 5 days on 10/09 with probiotic. cont to monitor for reoccurenc e Fracture o f neck of femur 2760637 S72.042D S/P hemiarthro plasty on 09/16. of [...] for safety.F/U with ortho as planned. Anemia 902653222 D62 D64.89 Mild at baseline likely due [...] 10/03)Monit or labs. Gastroesop hageal reflux disease 162254432 K21.9 With recent heme+ stool.GI felt no urgent need for endoscopy unless hgb drops again.Curr ently stable and with no sxs.due to heme positive stools and need for transfusio n recentlyco ntomeprazo le 40 mg po daily x 6 weeks started on 10/01Monito r closely, labs stable this week Major depr essive disorder 948298935 F32.89 In hx, followed by [facility] , on no meds. worker at bedside without concerns todayMood good today.Leela tor mood.Consu lt psych Adult fail ure to thrive syndrome 833685148 R62.7 Reported hx of wt loss and poor po intake at home.Encou rage po intake here (says she doesn't like the food).diet marlena consulted, Consider supplement s.Monitor wts and labs.Bettye bernardo consult. Cerebrovas cular accident 451946062 I63.89 With multiple old CVAs on MRI from 09/2022, mild crooked smile at baselineNo recent sxs.no changes to neuros, at baselineCo ntinueASA 81 mg qdatorvast atin 20 mg qd.Monitor for new sxs. Asthenia 52782338 R53.1 PT/OT as above.Enco urage activity. Type 2 erlin betes mellitus 15191476 E11.9 stableLast HgA1C I can find was 6.0 in 02/2023.Fin gersticks inpt with only one reading >200.Diet controlled at home.Monit or prn Osteoporosis 79162347 M8 1.0 Continueca lcium 500 mg qdvitamin D 1000 IU qd and level with next labs.(pend ing)Monito r as outpt. Hypothyroidism 24200430 E03.8 Last TSH in system from 09/2022 was nl.Continu elevothyro xine 88 mcg qdTSH stable at 3.94 on 3monitor prn Hypertensive disorder 38 843181 I10 In good control, stablecont atenolol 50 mg qdlisinopr il 20 mg qd.Monitor BP and labs. Developmental delay 2482 04146 F70 Has services in [address].Able to make her own decisions at this time.SS to f/u with outpt providers and director of casework department to plan d/c, Hypokalemia 28401134 E87 .6 no info on dc summary of supplement and planmonito r labs weekly 10/22 addendu m labs with k 3.2 will treat with 40 meq kcl tid x 3 doses and add 40 meq po qd on and . Constipation 11673526 K5 9.00 see hipnotable stool burden on CT scan in ER and disimpacte d9/9cont miralax dailyincre ase colace to 100 mg po bidadd senna dailylactu lose qod prnmonitor [id number] Alyssa Birch NP [address] [address] 10/25/2023 14:13:06 10/26/2023 13:21:55 Constipation 42155204 K59.00 resolving with recent er visit with notable stool burden on CT scan and disimpacte d9/9cont miralax dailyincre ase colace to 100 mg po bidadd senna dailylactu lose qod pr/ cont above plan, she is aware stooling daily is goalmonito r for need to adjust Hypokalemia 68051451 E87 .6 no info on dc summary of supplement and planmonito r labs weekly 10/22 k 3.2 will treated with 40 meq kcl tid x 3 doses and started on 40 meq po qd on and . labs weekly10/24 cont above plan Mass of ovary 723631238 R19.09 has been dx with ovarian mass [...] follows her for this Retention of urine 63415 4002 R33.8 she failed 3 voiding trials [...] and no concerns todayto monitor [facility] for [facility], nsg to schedulemo nitor for distention or s/s of infection Fracture o f neck of femur 5683390 S72.042D S/P hemiarthro plasty on 09/16. of [...] for safety.F/U with ortho as planned. Anemia 125510470 D62 D64.89 Mild at baseline likely due [...] 10/03)Monit or labs. Gastroesop hageal reflux disease 200599696 K21.9 With recent heme+ stool.GI felt no urgent need for endoscopy unless hgb drops again.Curr ently stable and with no sxs.due to heme positive stools and need for transfusio n recentlyco ntomeprazo le 40 mg po daily x 6 weeks started on 10/01Monito r closely, labs stable this week Major depr essive disorder 629217844 F32.89 In hx, followed by [facility] , on no meds. worker at bedside without concerns todayMood good today.Leela tor mood.Consu lt psych Adult fail ure to thrive syndrome 565723128 R62.7 Reported hx of wt loss and poor po intake at home.Encou rage po intake here (says she doesn't like the food).dania mendiola consulted, Consider supplement s.Monitor wts and labs.Bettye bernardo consult. Cerebrovas cular accident 766494089 I63.89 With multiple old CVAs on MRI from 09/2022, mild crooked smile at baselineNo recent sxs.no changes to neuros, at baselineCo ntinueASA 81 mg qdatorvast atin 20 mg qd.Monitor for new sxs. Asthenia 07448728 R53.1 PT/OT as above.Enco urage activity. Type 2 erlin betes mellitus 32677262 E11.9 stableLast HgA1C I can find was 6.0 in 02/2023.Alek frank inpt with only one reading >200.Diet controlled at home.Monit or prn Osteoporosis 99576677 M8 1.0 Continueca lcium 500 mg qdvitamin D 1000 IU qd and level with next labs.(pend ing)Monito r as outpt. Developmental delay 4469 12309 F70 [address].Able to make her own decisions at this time.SS to f/u with outpt providers and director of casework department to plan d/c, [id number] [facility] [address] 11/01/2023 11:54:51 11/06/2023 14:22:19 Retention of urine 917631972 R33.8 she failed 3 voiding trials in the hospital prior to being transferre d to rehabfoley removed and now voiding without difficulty conttamulo sin 0.4mg po daily(scri pt given)fu [facility] for urinary retention ouptmonito r for distention or s/s of infection Constipation 28340571 K5 9.00 resolving with recent er visit with notable stool burden on CT scan and disimpacte d in ER with increased laxativesc ontmiralax dailycolac e to 100 mg po bidsenna dailylactu lose qod prnmonitor for need to adjust Hypokalemia 71931672 E87 .6 with hypokalemi a repletedco ntpotassiu m 40 meq on and mo nitor with pcp outpt with adjustment s Mass of ovary 143727441 R19.09 has been dx with ovarian mass [...] this Fracture o f neck of femur 1534133 S72.042D S/P hemiarthro plasty on 09/16.10/03 Ortho [...] with ortho as planned micah outpt Anemia 224660601 D62 D64.89 Mild at baseline likely due [...] with pcp outpt Gastroesop hageal reflux disease 221266058 K21.9 With recent heme+ stool.GI felt no urgent need for endoscopy unless hgb drops again.Curr ently stable and with no sxs.due to heme positive stools and need for transfusio n recentlyco ntomeprazo le 40 mg po daily x 6 weeks started on 10/01Monito r closely, labs stable this week and fu with pcp outpt for omeprazole need. Major depr essive disorder 002506797 F32.89 In hx, followed by [facility] ,Mood good today.Leela tor mood.Consu lt psych outpt prn Adult fail ure to thrive syndrome 041653286 R62.7 Reported hx of wt loss and poor po intake at home.she has lost 5 lbs total since heresupple ments bid for weight gainmonito r outpt with pcp Cerebrovas cular accident 642631064 I63.89 With multiple old CVAs on MRI from 09/2022, mild crooked smile at baselineNo recent sxs.Contin ueASA 81 mg qdatorvast atin 20 mg qd.Monitor for new sxs./tee es outpt with pcp Asthenia 09190892 R53.1 PT/OT as above outpt prnEncoura ge activity outpt Type 2 erlin betes mellitus 34431046 E11.9 stableLast HgA1C I can find was 6.0 in 02/2023.BS prnDiet controlled at home.Monit or prn outpt Osteoporosis 43195587 M8 1.0 Continueca lcium 500 mg qdvitamin D 1000 IU qdMonitor as outpt. with pcp Developmental delay 0933 [address].Able to make her own decisions at this time.she with dc with service for [facility] Concerns Section Related Observation LastModified by Organization Detai ls LastModified Time None Recorded Concern Status LastModified by Organization Details LastModified Time None Recorded Advance Directives Directive Y: Payers Insurance Date Sequence Insurance Name Policy Number Policy Cunningham Covered Member ID Cunningham Member ID Guarantor Name 10/20/2023 1 [place]ARE [place]: [employer] Briseida Reich [id number] Briseida Reich 10/20/2023 2 [place] [facility] Briseida Reich [id number] Briseida Reich Notes Date Note Type Note Provider Name and Address Organization Details Recorded Time 10/12/2023 text/html Briseida is seen for an acute visit. She is a 78 [...] Per 10/26/[address] Mojica at [facility] oncology/obgyn she had a left adnexa cyst [...] at least 2 prior voiding trials. Alyssa Birch NP [address], [address], [place], [address], [facility] 10/12/2023 08:57:43 10/20/2023 text/html Briseida is a 78 yo woman with [...] three voiding trials here. She ultimately required unedrwood to be reinserted after 1600cc straight cath, [...] Per 10/26/[address] Mojica at [facility] oncology/obgyn she had a left adnexa cyst [...] another weight soon. Alyssa Birch, DUSTIN [address], [address], [place], [address], [facility] - [employer] 10/20/2023 09:41:58 10/23/2023 text/html Pt is a 78 yo woman with mild [...] Per 10/26/[address] Mojica at [facility] oncology/obgyn she had a left adnexa cyst which measured 8.1 x 6 x 5.6 cm. No surgery was required at this time. A repeat u/s can be considered if needed. Alyssa Birch NP [address] [place] [address], [address], [place], [address], [facility] 10/23/2023 16:15:20 10/25/2023 text/html Briseida is a 78 yo woman with [...] she shouldn't be stooling daily and this RESISTANCE WELDER educates her on the need to have stools daily to clean out and then decreasing laxatives going forward if warranted. Alyssa Birch, DUSTIN [address], [address], [place], [address], [facility] 10/25/2023 19:04:40 11/01/2023 text/html Pt is seen [...] urinary retention, anemia, and CHF presented to [facility] for left hip pain after mechanical fall and underwendt left hemiarthroplasty on 09/17/23 and was transferred to [facility] on 09/19/23 for continued care and rehab. [...] vna to support. Alyssa Birch NP [address], [address], [place], [address], [facility] - [employer] 11/01/2023 12:48:40 OBGyn Episode No OBEpisode recorded.
--- OUTSIDE RECORDS SUMMARY | 2024-11-14 17:03 | XMS_ITS | Clinical Summary ---
Author Organization [facility] Address [address] [place] [address] Care Team Providers Care Deli Bakery Clerk Name Role Phone Sangeetha Sage MD Primary Care Provider [phone] Allergies Active Allergy Reactions Criticality Noted Date [...] (PRINIVIL,ZESTRIL) tablet 20 mg 0 10/26/2022 Active [place]-3 Fatty Acids ([place]-3 Fish Oil) 1000 MG CAPS Take 1 [...] 82 05/23/2023 9:53 AM EDT Temperature 36.7 C (98 F) 05/23/2023 9:53 AM EDT Respiratory Rate - [...] 1-dose 75+ series) 02/13/2019 Influenza Vaccine (#1) 2024 3, 11/23/2021, 03/15/2021, Additional history exists Pneumococcal Vaccine Completed 04/16/2014, 11/09/2009, 09/15/2004 Hepatitis B Vaccines Aged Out No long er eligible based on patient's age to complete this topic RSV Ped < 20 months Aged Out No longe r eligible based on patient's age to complete this topic Care Teams Deli Bakery Clerk Relationship Specialty Start Date End Date Sangeetha Sage MD PCP - General Internal Medicine 09/13/22
--- OUTSIDE RECORDS SUMMARY | 2024-11-14 17:03 | XMS_ITS ---
Author Name [facility] Organization Unknown History of Medication Use Medication Directions Dispensed Refills Start Date End Date Stat us nitrofurantoin, macrocrystal-monohydrat e, (MACROBID) 100 mg capsule Take 1 capsule (100 mg total) by mouth 2 (two) times a day for 5 days. 09/30/2024 active Allergy Relief, loratadine, 10 mg tablet TAKE 1 TABLET BY MOUTH DAILY 09/26/2024 active aspirin 81 mg EC tablet TAKE 1 TABLET BY MOUTH EVERY NIGHT AT BEDTIME 09/26/2024 active atenoloL (TENORMIN) 50 mg tablet TAKE 1 TABLET BY MOUTH EVERY NIGHT AT BEDTIME 09/26/2024 active atorvastatin (LIPITOR) 20 mg tablet TAKE 1 TABLET BY MOUTH EVERY MORNING 09/26/2024 active docusate sodium (COLACE) 100 mg capsule TAKE 1 CAPSULE BY MOUTH DAILY 09/26/2024 active levothyroxine (SYNTHROID, LEVOTHROID) 100 mcg tablet TAKE 1 TABLET BY MOUTH DAILY BEFORE BREAKFAST 09/26/2024 active omega 5-pnp-atu-fish oil 300 mg (120 mg- 180mg)-1,000 mg capsule TAKE 1 CAPSULE BY MOUTH EVERY MORNING 09/26/2024 active Oyster Shell Calcium 500 500 mg calcium (1,250 mg) tablet TAKE 1 TABLET BY MOUTH EVERY NIGHT AT BEDTIME 09/26/2024 active tamsulosin (FLOMAX) 0.4 mg 24 hr capsule TAKE 1 CAPSULE BY MOUTH DAILY TAKE 30 MINUTES AFTER SAME MEAL DAILY 09/26/2024 active clotrimazole (LOTRIMIN) 1 % cream APPLY TOPICALLY TO THE AFFECTED AREA UNDER BREASTS TWICE A DAY NEEDED FOR RASH 09/25/2024 active polyethylene glycol (PEG) 17 gram/dose oral powder DISSOLVE 17 GRAMS IN 8OZ OF LIQUID AND DRINK DAILY 09/25/2024 active lisinopriL (PRINIVIL,ZESTRIL) 20 mg tablet Take 1 tablet (20 mg total) by mouth 1 (one) time each day. at bedtime. 09/04/2024 active clopidogreL (PLAVIX) 75 mg tablet Take 1 tablet (75 mg total) by mouth 1 (one) time each day. 09/02/2024 active lidocaine (LIDODERM) 5 % patch Apply 1 patch topically 1 (one) time each day if needed (right shoulder pain). 07/12/2024 active loperamide (IMODIUM) 2 mg capsule 05/19/2024 active cyanocobalamin (VITAMIN B-12) injection 1,000 mcg 05/02/2024 active alendronate (FOSAMAX) 70 mg tablet TAKE 1 TABLET BY MOUTH EVERY 7 DAYS 04/12/2024 active ammonium lactate (AmLactin) 12 % lotion Apply topically if needed for dry skin. 01/02/2024 active acetaminophen (TYLENOL) 500 mg tablet Take 2 tablets (1,000 mg total) by mouth. 06/14/2023 active cholecalciferol (VITAMIN D-3) 50 mcg (2,000 unit) capsule Take 1 capsule (2,000 Units total) by mouth. 11/24/2021 active senna (SENOKOT) 8.6 mg tablet Take 2 tablets (17.2 mg total) by mouth. 03/17/2017 active Allergies Allergen Reaction Severity Comment Documented Date Source Statu s METFORMIN HCL Diarrhea 01/18/2007 [facility] act janet PROPOXYPHENE NUMBNESS Other reaction( s): Numbness, tingling or swelling of the lips, tongue or mouth 02/18/2005 [facility] active Problems Problem Status Onset Date Problem Type Date of Resolution Source Hypertension active 2005-02-21 ProblemAct [facility] Pure hypercholesterolemia active 2005-02-21 ProblemAct [facility] Adnexal cyst active 2022-03-31 ProblemAct [facility] Stroke (CMS/HCC V24, CMS/HCC V28) active 2022-08-30 ProblemAct [facility] Vitamin B12 deficiency active 2016-03-12 ProblemAct [facility] Depression active 2005-08-12 ProblemAct [facility] Esophageal reflux active 2005-08-12 ProblemAct [facility] Microalbuminuria active 2010-04-25 ProblemAct C [facility] 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 ProblemAct [facility] DNR (do not resuscitate) active 2023-03-17 ProblemAct [facility] Gastritis active 2005-09-21 ProblemAct [facility] DM (diabetes mellitus), type 2 with renal complications ([facility] V24, [facility] V28) active 2024-02-21 ProblemAct [facility] Incomplete bladder emptying active 2024-07-04 ProblemAct [facility] Postmenopausal bleeding active 2024-07-04 ProblemAct [facility] Pelvic fracture ([facility] V24, [facility] V28) active 2017-04-12 ProblemAct [facility] Rectocele active 2010-05-05 ProblemAct [facility] Left ovarian cyst active 2024-07-04 ProblemAct [facility] Vaginal atrophy active 2024-07-[address] [facility] 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 ProblemAct [facility] Irritable bowel syndrome active 2005-11-28 ProblemAct [facility] Hypothyroidism active 2005-02-21 ProblemAct [facility] Constipation active 2005-08-12 ProblemAct [facility] Idiopathic osteoporosis active 2005-02-21 ProblemAct [facility] Onychomycosis active 2008-04-14 ProblemAct [facility] Immunizations Vaccine Date Source Lot Number Status Pneumococcal conjugate 20 va lent (Prevnar 20, PCV 20) 2mo and older 07/12/2024 [facility] [id number] comple lulu Influenza trivalent, 0.5mL ( Fluzone High-dose) 65yo and older 11/14/2022 [facility] [id number] comple lulu Influenza trivalent, 0.5mL ( Fluzone High-dose) 65yo and older 11/23/2021 [facility] [id number] comple lulu Influenza trivalent, 0.5mL ( Fluzone High-dose) 65yo and older 03/15/2021 [facility] [id number] comple lulu Influenza trivalent, 0.5mL ( Fluzone High-dose) 65yo and older 11/18/2019 [facility] comple lulu Influenza trivalent, 0.5mL ( Fluzone High-dose) 65yo and older 12/27/2018 [facility] [id number] comple lulu Influenza trivalent, 0.5mL ( Fluzone High-dose) 65yo and older 12/05/2017 [facility] [id number] comple lulu Influenza Quadravalent, MDCK , 0.5ml, with preservative (Flucelvax) 6mo and older 02/15/2017 [facility] [id number] completed Influenza trivalent, with pr eservative (Fluzone; Afluria) 6mo and older 12/17/2015 [facility] [id number] completed Td Tetanus diptheria (Tdvax) 7yo and older 12/17/2015 [facility] [id number] completed Influenza trivalent, with pr eservative (Fluzone; Afluria) 6mo and older 11/13/2014 [facility] [id number] completed Pneumococcal conjugate 13 va lent (Prevnar 13, PCV13) 2mo and older 04/16/2014 [facility] [id number] complet ed Influenza trivalent, with pr eservative (Fluzone; Afluria) 6mo and older 12/31/2013 [facility] [id number] completed Influenza trivalent, with pr eservative (Fluzone; Afluria) 6mo and older 10/30/2012 [facility] completed Influenza trivalent, with pr eservative (Fluzone; Afluria) 6mo and older 11/01/2010 [facility] [id number] completed Influenza trivalent, with pr eservative (Fluzone; Afluria) 6mo and older 11/09/2009 [facility] [id number] completed Pneumococcal polysaccharide 23 valent (Pneumovax 23) 2yo and older 11/09/2009 [facility] [id number] com pleted Influenza trivalent, with pr eservative (Fluzone; Afluria) 6mo and older 12/04/2006 [facility] [id number] completed Influenza trivalent, with pr eservative (Fluzone; Afluria) 6mo and older 01/22/2006 [facility] [id number] completed Influenza trivalent, with pr eservative (Fluzone; Afluria) 6mo and older 12/08/2004 [facility] completed Pneumococcal polysaccharide 23 valent (Pneumovax 23) 2yo and older 09/15/2004 [facility] com pleted Td Tetanus diptheria (Tdvax) 7yo and older 09/15/2004 [facility] completed Care Team Organization Name Specialty Phone Email Start Date End [facility] 10/02/2024
[2024-11-14 17:11] LABS: NT Pro B Type Natriuretic Pept 376.7 pg/mL (<300); Troponin-I High Sensitivity 4.0 ng/L (<3.5-17.0)
[2024-11-14 17:39] VITALS: BP 131/85; PULSE 94; RESP 19; TEMP 36.6; O2SAT 96
[2024-11-14 18:01] LABS: Alanine Aminotransferase < 6 U/L (0-31); Albumin Level 3.9 g/dL (3.5-5.0); Alkaline Phosphatase 118 U/L (39-117); Anion Gap 11 (12-20); Aspartate Amino Transferase 17 U/L (5-31); Blood Urea Nitrogen 9 mg/dL (9-16); Calcium 8.6 mg/dL (8.4-10.2); Carbon Dioxide 26 mmol/L (22-29); Chloride 110 mmol/L (96-108); Creatinine Clr Calc Pharmacy 65.5; Estimated Glomerular Filt Rate > 60; Lipase 7 U/L (8-78); Potassium 4.1 mmol/L (3.3-5.1); Sodium 143 mmol/L (135-145); Total Protein 6.4 g/dL (6.5-8.0)
[2024-11-14] MEDS: iohexoL 350 MG/ML 100 ML INFUS..BTL IV (18:18)
[2024-11-14 19:44] VITALS: BP 126/75; PULSE 91; RESP 22; TEMP 36.5; O2SAT 96
--- NOTE | 2024-11-14 21:30 | PC.NURSE ---
Pt c/o difficulty urinating, and abd bloating. Bladder scan shows 720mL urine, Dr. Vergara aware and underwood ordered. After placement, 720mL output measured from underwood. Pt states she just had a straight cath earlier today during a visit outpatient, after being diagnosed with a prolapsed uterus.
[2024-11-14 22:24] VITALS: BP 144/86; PULSE 89; RESP 18; TEMP 36.6; O2SAT 97
--- NOTE | 2024-11-14 23:29 | PC.NURSE ---
Please contact Care team @ [phone] w/any updates.
--- NOTE | 2024-11-14 23:54 | PC.NURSE ---
Took over care at 23:00 from jarrell Jenkins collected and sent . Awaiting results in regards to disposition.
[2024-11-14 23:58] LABS: Appearance Urine Clear; Glucose Urine UA Negative (Negative); PH 7.0 (5.0-9.0); Specific Gravity - Urine >= 1.030 (1.005-1.025); UMIC TRIGGER UACC YES
--- NOTE | 2024-11-15 00:56 | PC.NURSE ---
Called care team phone number, no answer. pt refusing to keep underwood in, per provider pt can have urine retention, pt requesting for underwood to be removed.
--- NOTE | 2024-11-15 01:10 | PC.NURSE ---
Carver removed, pt given hospital pain and blanket.
[2024-11-15 01:12] VITALS: BP 147/88; PULSE 95; RESP 16; TEMP 36.7; O2SAT 95
--- NOTE | 2024-11-15 01:22 | PC.NURSE ---
reviewed discharge instructions with pt. pt verbalized understanding, no sign of distress, pt educated on the risk of removing the underwood, pt wheeled out with family member.
[2024-11-15 01:23] VITALS: BP 147/88; PULSE 95; RESP 16; TEMP 36.7; O2SAT 95
== END 2024-11-15 01:24 | disposition home or self-care (01) ==
PROVIDERS: Emergency Provider Emergency Medicine Emergency Medical Services; PCP Internal Medicine
DX: R10.13 Epigastric pain (principal); M54.50 Low back pain, unspecified; I25.10 Atherosclerotic heart disease of native coronary artery without angina pectoris; R06.02 Shortness of breath; R11.0 Nausea; I10 Essential (primary) hypertension; E11.9 Type 2 diabetes mellitus without complications; Z86.73 Personal history of transient ischemic attack (TIA), and cerebral infarction without residual deficits; Z79.899 Other long term (current) drug therapy; Z79.84 Long term (current) use of oral hypoglycemic drugs
CPT/HCPCS: 36415; 71046; 71275; 74174; 80048; 80076; 81001; 83690; 83880; 84484; 85025; 85652; 86140; 93005; 96361; 96374; 96375; 96376; 99285; J1171; J2405; Q9967

== ENCOUNTER → 2024-11-14 15:57 | Outpatient (BNV) | payer MEDICARE, MEDICAID, SELFPAY | PROVIDERS: Emergency Provider Emergency Medicine Emergency Medical Services; PCP Internal Medicine; Visit Provider Internal Medicine | DX: I49.1 Atrial premature depolarization (principal); I45.10 Unspecified right bundle-branch block; R00.0 Tachycardia, unspecified | CPT/HCPCS: 93010 ==

== ENCOUNTER → 2024-11-14 17:00 | Outpatient (BNV) | payer MEDICARE, MEDICAID, SELFPAY | PROVIDERS: Emergency Provider Emergency Medicine Emergency Medical Services; PCP Internal Medicine; Visit Provider Radiology Diagnostic Radiology | DX: K44.9 Diaphragmatic hernia without obstruction or gangrene (principal); S22.009A Unspecified fracture of unspecified thoracic vertebra, initial encounter for closed fracture | CPT/HCPCS: 71046 ==

== ENCOUNTER 2024-12-22 09:39 | Emergency (ER) | payer MEDICARE, MEDICAID, SELFPAY ==
[2024-12-22 09:47] VITALS: BP 160/100; PULSE 125; O2SAT 95
--- NOTE | 2024-12-22 09:48 | ECG_ITS ---
Test Reason : WEAKNESS Blood Pressure : */* mmHG Vent. Rate : 86 BPM Atrial Rate : 86 BPM P-R Int : 148 ms QRS Dur : 118 ms QT Int : 412 ms P-R-T Axes : -4 -22 -38 degrees QTcB Int : 493 ms Normal sinus rhythm with sinus arrhythmia Incomplete right bundle branch block ST & T wave abnormality, consider inferior ischemia ST & T wave abnormality, consider anterolateral ischemia Prolonged QT Abnormal ECG When compared with ECG of 14-Nov-2024 15:57, Premature atrial complexes are no longer Present Referred By: Kandi Montoya Electronically Signed By: Darío Mccormack
[2024-12-22 10:12] VITALS: BP 139/80; PULSE 92; RESP 18; TEMP 36.6; O2SAT 95; BMI 19.9
[2024-12-22 10:28] LABS: MANUAL DIFF FLAG NO
[2024-12-22 10:29] LABS: Hematocrit 41.4 % (37.0-47.0); Hemoglobin 13.2 g/dl (12.0-16.0); Imm Gran Abs Auto 0.01 X10*3/uL (0.00-0.03); Imm Gran Pct Auto 0.2 % (0.0-0.4); Lymphocytes Absolute Auto 1.2 X10*3/uL (1.2-4.9); Mean Corpuscular HGB Conc 31.9 g/dl (31.0-35.0); Mean Corpuscular Hemoglobin 27.3 pg (27.0-33.0); Mean Corpuscular Volume 85.5 fL (80.0-98.0); NRBC Abs Auto 0.000 X10*3/uL (0.0-0.012); NRBC Pct Auto 0.0 /100WBC (0.0-0.2); Platelet Count 247 X10*3/uL (160-400); Red Blood Count 4.84 X10*6/uL (4.20-5.50); White Blood Count 5.7 X10*3/uL (4.8-10.8)
--- OUTSIDE RECORDS SUMMARY | 2024-12-22 10:29 | XMS_ITS | Encounter Summary ---
Author Organization [facility] Address [address] [place] [address] Care Team Providers Care Marketing Services Rep Name Role Phone Sangeetha Sage MD Primary Care Provider [phone] Encounter Details Date Type Department Care Team ([facility] st Contact Info) Description 11/27/2024 Lab Requisition [facility] - Main Lab [address] [facility] [place] [address] Gerber Dimas MD [address] [place] [phone] Nausea with vomiting, unspecified Social History Tobacco Use Types Packs/Day Years Used Date Smoking Tobacco: Former Cigarettes 0.3 Q uit: 10/24/2015 Smokeless Tobacco: Former Quit: [...] care for your loved ones. For example, special needs child caregiver or elderly care for an older adult? [...] Date Recorded What is your living situation? Unrecognized valu e 09/02/2024 Comments No Sex and Gender Information Value Date Recorded Sex Assigned at Not on file Legal Sex Female 12:13 AM EST Gender Identity Not on file Sexual Orientation Not on file documented as of this encounter Plan of Treatment Upcoming Encounters Date Type Department Care Team (Late st Contact Info) Description 12/23/2024 10:30 AM EST Office Visit Adult Medicine [facility] [address] [place] [address] Sangeetha Sage MD [address] [place], [place] 12/26/2024 2:00 PM EST Procedure visit Urogynecology [address] [phone] Kortney Saldana NP [address] [place] [address] 01/03/2025 11:15 AM EST Office Visit Adult Medicine [address] [phone] Sangeetha Sage MD [address], [place] 01/08/2025 3:15 PM EST Office Visit Urogynecolog[address] [phone] Brit Gaston MD [address] [facility] [address] [place] [address] 09/04/2025 11:15 AM EDT Office Visit [address] [phone] Sangeetha Sage MD [address] [place] [address] documented as of this encounter Procedures Procedure Name Priority Date/Time Associated Diagnosis Comments CBC WITH AUTO DIFFERENTIAL Routine 11/27/2024 10:38 AM EDT Nausea with vomiting, unspecified CBC AND DIFFERENTIAL Routine 11/27/2024 10:38 AM EDT Nausea with vomiting, unspecified LIPASE Routine 11/27/2024 10:38 AM EDT Nausea with vomiting, unspecified AMYLASE Routine 11/27/2024 10:38 AM EDT Nausea with vomiting, unspecified COMPREHENSIVE METABOLIC PANEL Routine 11/27/2024 10:38 AM EDT Nausea with vomiting, unspecified documented in this encounter Results * (ABNORMAL) CBC auto differential (11/27/2024 10:38 AM EDT) [facility] Signature WBC 7.7 4.8 - 10.8 K/mcL LAB HEMETOLOGY METHOD 11/27/2024 11:34 AM [facility] RBC 4.80 3.80 - 4.80 M/mcL LAB HEMETOLOGY METHOD 11/27/2024 11:34 AM [facility] Hemoglobin 13.2 11.5 - 16.0 g/dL LAB HEMETOLOGY METHOD 11/27/2024 11:34 AM [facility] Hematocrit 41.7 35.0 - 47.0 % LAB HEMETOLOGY METHOD 11/27/2024 11:34 AM [facility] MCV 86.2 79.0 - 98.0 FL LAB HEMETOLOGY METHOD 11/27/2024 11:34 AM [facility] MCH 27.3 27.0 - 32.0 pcg LAB HEMETOLOGY METHOD 11/27/2024 11:34 AM [facility] MCHC 31.7(L) 32.0 - 37.0 g/dL LAB HEMETOLOGY METHOD 11/27/2024 11:34 AM [facility] RDW 14.3 11.0 - 15.0 % LAB HEMETOLOGY METHOD 11/27/2024 11:34 AM [facility] Platelets 377 130 - 400 K/mcL LAB HEMETOLOGY METHOD 11/27/2024 11:34 AM [facility] MPV 10.1 7.0 - 11.0 FL LAB HEMETOLOGY METHOD 11/27/2024 11:34 AM [facility] NRBC 0.0 <1.0 % LAB HEMETOLOGY METHOD 11/27/2024 11:34 AM [facility] NRBC Absolute 0.00 <0.10 K/mcL LAB HEMETOLOGY METHOD 11/27/2024 11:34 AM [facility] Neutrophils Relative 70.9 % LAB HEMETOLOGY METHOD 11/27/2024 11:34 AM [facility] Lymphocytes Relative 14.5 % LAB HEMETOLOGY METHOD 11/27/2024 11:34 AM [facility] Monocytes Relative 12.5 % LAB HEMETOLOGY METHOD 11/27/2024 11:34 AM [facility] Eosinophils Relative 1.4 % LAB HEMETOLOGY METHOD 11/27/2024 11:34 AM [facility] Basophils Relative 0.4 % LAB HEMETOLOGY METHOD 11/27/2024 11:34 AM [facility] Immature Granulocytes Relative 0.3 % LAB HEMETOLOGY METHOD 11/27/2024 11:34 AM [facility] Neutrophils Absolute 5.43 1.50 - 7.00 K/mcL LAB HEMETOLOGY METHOD 11/27/2024 11:34 AM [facility] Lymphocytes Absolute 1.11 1.00 - 5.00 K/mcL LAB HEMETOLOGY METHOD 11/27/2024 11:34 AM [facility] Monocytes Absolute 0.96 0.20 - 1.00 K/mcL LAB HEMETOLOGY METHOD 11/27/2024 11:34 AM [facility] Eosinophils Absolute 0.11 0.00 - 0.50 K/mcL LAB HEMETOLOGY METHOD 11/27/2024 11:34 AM [facility] Basophils Absolute 0.03 0.00 - 0.20 K/mcL LAB HEMETOLOGY METHOD 11/27/2024 11:34 AM [facility] Immature Granulocytes Absolute 0.02 0.00 - 0.03 K/mcL LAB HEMETOLOGY METHOD 11/27/2024 11:34 AM EDT [facility] Blood Venous blood specimen / Unknown Venipuncture / Unknown 11/27/2024 10:38 AM EDT 11/27/2024 11:06 AM EDT us Gerber Dimas MD LAB BLOOD ORDERABLES Final Resu lt Performing Organization Address City/[facility]/ZIP Co de Phone Number [facility] [address] [place] [address], [place] [phone] * Amylase (11/27/2024 10:38 AM EDT) Amylase 29 25 - 115 unit/L LAB CHEMISTRY METHOD 11/27/2024 11:47 AM EDT [facility] Blood Venous blood specimen / Unknown Venipuncture / Unknown 11/27/2024 10:38 AM EDT 11/27/2024 11:06 AM EDT us Gerber Dimas MD LAB BLOOD ORDERABLES Final Resu lt Performing Organization Address [facility] de Phone Number [facility] [address] [place] [address], [place] [phone] * Lipase (11/27/2024 10:38 AM EDT) Lipase 52 13 - 75 unit/L LAB CHEMISTRY METHOD 11/27/2024 11:47 AM EDT [facility] Blood Venous blood specimen / Unknown Venipuncture / Unknown 11/27/2024 10:38 AM EDT 11/27/2024 11:06 AM EDT us Gerber Dimas MD LAB BLOOD ORDERABLES Final Resu lt Performing Organization Address City/[facility]/ZIP Co de Phone Number [facility] [address] [place] [address], [place] [phone] * (ABNORMAL) Comprehensive metabolic panel (11/27/2024 10:38 AM EDT) Sodium 135 133 - 145 mmol/L LAB CHEMISTRY METHOD 11/27/2024 12:21 PM [facility] Potassium 3.6 3.5 - 5.5 mmol/L LAB CHEMISTRY METHOD 11/27/2024 12:21 PM [facility] Chloride 98 96 - 110 mmol/L LAB CHEMISTRY METHOD 11/27/2024 12:21 PM [facility] CO2 25 21 - 32 mmol/L LAB CHEMISTRY METHOD 11/27/2024 12:21 PM [facility] Anion Gap 12(H) 3 - 11 LAB CHEMISTRY METHOD 11/27/2024 12:21 PM [facility] Glucose 94 70 - 100 mg/dL LAB CHEMISTRY METHOD 11/27/2024 12:21 PM [facility] BUN 64(H) 5 - 25 mg/dL LAB CHEMISTRY METHOD 11/27/2024 12:21 PM [facility] Creatinine 0.64 0.50 - 1.10 mg/dL LAB CHEMISTRY METHOD 11/27/2024 12:21 PM [facility] eGFR 89 >=60 mL/min/1. 73m2 LAB CHEMISTRY METHOD 11/27/2024 12:21 PM [facility] Comment:Calculation based on the Chronic Kidney Disease Epidemiology Collaboration (CKD-EPI) equation refit without adjustment for race. BUN/Creatinine Ratio 100.0 LAB CHEMISTRY METHOD 11/27/2024 12:21 PM [facility] Calcium 9.0 8.5 - 10.5 mg/dL LAB CHEMISTRY METHOD 11/27/2024 12:21 PM [facility] AST (SGOT) 12 10 - 42 unit/L LAB CHEMISTRY METHOD 11/27/2024 12:21 PM EDT [facility] ALT (SGPT) 12 10 - 60 unit/L LAB CHEMISTRY METHOD 11/27/2024 12:21 PM EDT [facility] Alkaline Phosphatase 123(H) 42 - 121 unit/L LAB CHEMISTRY METHOD 11/27/2024 12:21 PM EDT [facility] Total Protein 6.3 6.0 - 8.0 g/dL LAB CHEMISTRY METHOD 11/27/2024 12:21 PM T [facility] Albumin 3.3 3.2 - 5.0 g/dL LAB CHEMISTRY METHOD 11/27/2024 12:21 PM T [facility] Total Bilirubin 0.9 0.0 - 1.4 mg/dL LAB CHEMISTRY METHOD 11/27/2024 12:21 PM T [facility] Blood Venous blood specimen / Unknown Venipuncture / Unknown 11/27/2024 10:38 AM EDT 11/27/2024 11:06 AM EDT us Gerber Dimas MD LAB BLOOD ORDERABLES Final Resu lt [facility] [address] [place] [address], documented in this encounter Visit Diagnoses Diagnosis Nausea with vomiting, unspecified documented in this encounter Additional Health Concerns Assessment Noted Time PHQ-9 Depression Total Score: 1 09/03/19 25 11:29 AM EDT A fall risk assessment has been complete d for the patient 09/02/2024 11:23 AM EDT documented as of this encounter Care Teams Marketing Services Rep Relationship Specialty Start Date End Date Sangeetha Sage MD [address] [place] [address] PCP - General 08/27/04 documented as of this encounter
--- OUTSIDE RECORDS SUMMARY | 2024-12-22 10:29 | XMS_ITS | Encounter Summary ---
Author Organization [facility] Address [address] [place] [address] Care Team Providers Care Mortgage Protection Specialist Name Role Phone Sangeetha Sage MD Primary Care Provider [phone] Encounter Details Date Type Department Care Team ([facility] st Contact Info) Description 11/29/2024 Lab Requisition [facility] - Main Lab [address] [facility] [place] [address] Gerber Dimas MD [address] [place] [id number] Hypothyroidism, unspecified Social History Tobacco Use Types Packs/Day [...] care for your loved ones. For example, child & adolescent psychiatrist or elderly care for an older adult? [...] 10:30 AM EST Office Visit Adult Medicine [facility] [address] [place], [place] [phone] Sangeetha Sage MD [address] [place], [place] 12/26/2024 2:00 PM EST Procedure visit Urogynecolog[address] [phone] Kortney Saldana NP [address] [place] [address] 01/03/2025 11:15 AM EST Office Visit Adult [address] [phone] Sangeetha Sage MD [address] [place] [address] 01/08/2025 3:15 PM EST Office Visit Uro[address] [phone] Brit Gaston MD [address] [facility] [address] [place] [address] 09/04/2025 11:15 AM EDT Office Visit [address] [phone] Sangeetha Sage MD [address] [place] [address] documented as of this encounter Procedures Procedure Name Priority Date/Time Associated Diagnosis Comments TRIIODOTHYRONINE TOTAL Routine 4:57 AM EDT Hypothyroidism, unspecified THYROID STIMULATING HORMONE Routine 11/29/2024 4:57 AM EDT Hypothyroidism, unspecified THYROXINE TOTAL Routine 11/29/2024 4:57 AM EDT Hypothyroidism, unspecified documented in this encounter Results * Thyroxine total (11/29/2024 4:57 AM EDT) [facility] T4, Total 8.8 4.5 - 10.9 mcg/dL LAB CHEMISTRY METHOD 11/29/2024 9:47 AM EDT [facility] Blood Venous blood specimen / Unknown Venipuncture / Unknown 11/29/2024 4:57 AM EDT 11/29/2024 7:41 AM EDT us Gerber Dimas MD LAB BLOOD ORDERABLES Final Resu lt Performing Organization Address [facility] de Phone Number [facility] [address] [place] [address], [place] [phone] * (ABNORMAL) Triiodothyronine total (11/29/2024 4:57 AM EDT) T3, Total 33.80(L) 60.00 - 181.00 ng/dL LAB CHEMISTRY METHOD 11/29/2024 9:09 AM EDT [facility] Blood Venous blood specimen / Unknown Venipuncture / Unknown 11/29/2024 4:57 AM EDT 11/29/2024 7:41 AM EDT us Gerber Dimas MD LAB BLOOD ORDERABLES Final Resu lt Performing Organization Address [facility] de Phone Number [facility] [address] [place] [address], [place] [phone] * Thyroid stimulating hormone (11/29/2024 4:57 AM EDT) TSH 1.22 0.40 - 4.00 mcIU/mL LAB CHEMISTRY METHOD 11/29/2024 9:09 AM EDT [facility] Blood Venous blood specimen / Unknown Venipuncture / Unknown 11/29/2024 4:57 AM EDT 11/29/2024 7:41 AM EDT us Gerber Dimas MD LAB BLOOD ORDERABLES Final Resu lt [facility] [address] [place] [address], documented in this encounter Visit Diagnoses Diagnosis Hypothyroidism, unspecified documented in this encounter Additional Health Concerns Assessment Noted Time PHQ-9 Depression Total Score: 1 09/03/19 11:29 AM EDT A fall risk assessment has been complete d for the patient 09/02/2024 11:23 AM EDT documented as of this encounter Care Teams Mortgage Protection Specialist Relationship Specialty Start Date End Date Sangeetha Sage MD [address] [place] [address] PCP - General 08/27/04 documented as of this encounter
--- OUTSIDE RECORDS SUMMARY | 2024-12-22 10:29 | XMS_ITS | Clinical Summary ---
Author Organization [facility] Address [address] [place] [address] Care Team Providers Care Electric Shipyard Operator Name Role Phone Sangeetha Sage MD Primary Care Provider [phone] Allergies Active Allergy Reactions Criticality Noted Date [...] (PRINIVIL,ZESTRIL) tablet 20 mg 0 10/26/2022 Active Baldwin-3 Fatty Acids (Baldwin-3 Fish Oil) 1000 MG CAPS Take 1 [...] age to complete this topic Care Teams Electric Shipyard Operator Relationship Specialty Start Date End Date Sangeetha Sage MD PCP - General Internal Medicine 09/13/22
--- OUTSIDE RECORDS SUMMARY | 2024-12-22 10:29 | XMS_ITS | Clinical Summary ---
Author Organization [facility] [address] [place] [address] [place] [phone] Phone Care Team Providers Care Computer Language Coder Name Role Phone Sangeetha Sage MD Primary Care Provider [phone] Allergies Active Allergy Reactions Criticality Noted Date Comments Metformin Hcl 01/18/2007 Diarrhea Propoxyphene Numbness High 02/18/2005 Other reaction(s): Numbness, tingling or swelling of the lips, tongue or mouth Medications cholecalciferol (VITAMIN D-3) 50 mcg (2,000 unit) capsule Take 1 capsule (2,000 Units total) by mouth. 2 Active acetaminophen (TYLENOL) 500 mg tablet Take 2 tablets (1,000 mg total) by mouth. 4 Active senna (SENOKOT) 8.6 mg tablet Take 2 tablets (17.2 mg total) by mouth. 8 Active ammonium lactate (AmLactin) 12 % lotion Apply topically if needed for dry skin. 400 g 4 01/02/20 25 Active alendronate (FOSAMAX) 70 mg tablet TAKE 1 TABLET BY MOUTH EVERY 7 DAYS 4 tablet 5 5 Active loperamide (IMODIUM) 2 mg capsule 5 Active lidocaine (LIDODERM) 5 % patchIndication s:Chronic right shoulder pain Apply 1 patch topically 1 (one) time each day if needed (right shoulder pain). 30 patch 5 Active clopidogreL (PLAVIX) 75 mg tablet Take 1 tablet (75 mg total) by mouth 1 (one) time each day. 90 tablet 1 5 Active lisinopriL (PRINIVIL,ZESTR IL) 20 mg tablet Take 1 tablet (20 mg total) by mouth 1 (one) time each day. at bedtime. 90 tablet 1 5 Active Allergy Relief, loratadine, 10 mg tablet TAKE 1 TABLET BY MOUTH DAILY 28 tablet 5 Active tamsulosin (FLOMAX) 0.4 mg 24 hr capsule TAKE 1 CAPSULE BY MOUTH DAILY TAKE 30 MINUTES AFTER SAME MEAL DAILY 28 capsule 5 Active omega 4-fbe-gka-fish oil 300 mg (120 mg- 180mg)-1,000 mg capsule TAKE 1 CAPSULE BY MOUTH EVERY MORNING 28 capsule Active docusate sodium (COLACE) 100 mg capsule TAKE 1 CAPSULE BY MOUTH DAILY 28 capsule 5 5 Active atenoloL (TENORMIN) 50 mg tablet TAKE 1 TABLET BY MOUTH EVERY NIGHT AT BEDTIME 28 tablet Active aspirin 81 mg EC tablet TAKE 1 TABLET BY MOUTH EVERY NIGHT AT BEDTIME 28 tablet Active atorvastatin (LIPITOR) 20 mg tablet TAKE 1 TABLET BY MOUTH EVERY MORNING 28 tablet Active Oyster Shell Calcium 500 500 mg calcium (1,250 mg) tablet TAKE 1 TABLET BY MOUTH EVERY NIGHT AT BEDTIME 28 tablet 5 Active levothyroxine (SYNTHROID, LEVOTHROID) 100 mcg tablet TAKE 1 TABLET BY MOUTH DAILY BEFORE BREAKFAST 28 tablet Active polyethylene glycol (PEG) 17 gram/dose oral powder DISSOLVE 17 GRAMS IN 8OZ OF LIQUID AND DRINK DAILY 510 g Active clotrimazole (LOTRIMIN) 1 % cream APPLY TOPICALLY TO THE AFFECTED AREA UNDER BREASTS TWICE A DAY NEEDED FOR RASH 30 g 5 Active Hospital, Clinic, or Other Facility Administered Medication [...] (diabetes mellitus), type 2 with renal complications ([facility] V24, [facility] V28) 02/21/2024 Assessment & Plan (09/02/2024 11:35 [...] She voiced understanding and agreed. Discussed with GLOVE BRUSHER as well. 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 Type 2 diabetes mellitus (CM S/HCC V24, CMS/HCC V28) 08/12/2005 02/22/2024 Encounters Date Type Department Care Team Description 12/20/[address] [phone] Sangeetha Sage MD 12/12/[address] [phone] Sangeetha Sage MD 11/29/[address] [facility] [address] [place] [phone] Gerber Dimas MD Hypothyroidism, unspecified 11/27/[address] [facility] [address] [place] [phone] Gerber Dimas MD Nausea with vomiting, unspecified 11/22/[address] [facility] [address] [place] [phone] Gerber Dimas MD Essential (primary) hypertension; Hypothyroidism, unspecified 11/19/2024 Nurse Triage [address] [phone] Ebony Camarena [place] 11/14/2024 9:15 AM EDT Office Visit [facility] [address] [place], [place] [phone] Nga Ruelas DO Incomplete bladder emptying (Primary Dx); Vaginal atrophy 11/14/2024 Telephone [facility] [address] [place], [place] [phone] Rosy Hebert RN 11/01/2024 1:30 PM EDT Office Visit [address], [place] [phone] Sandy Hays PA History of diarrhea (Primary Dx); Adnexal mass; Rectocele; Primary hypertension 10/31/[address] [phone] Sangeetha Sage MD 10/30/[address] [phone] Sangeetha Sage MD 10/29/2024 Billing Patient Not Present [address] [phone] Sangeetha Sage MD 10/28/[address] [phone] Sangeetha Sage MD 10/23/2024 11:30 AM EDT Clinical Support [address] [phone] Vitamin B12 deficiency (Primary Dx) 10/09/2024 10:30 AM EDT Office Visit [address] [phone] Sangeetha Sage MD Primary hypertension (Primary Dx); Type 2 diabetes mellitus with stage 3 chronic kidney disease, without long-term current use of insulin, unspecified whether stage 3a or 3b CKD (CMS/HCC V24, CMS/HCC V28); History of completed stroke; Vitamin B12 deficiency; Gastroesophageal reflux disease without esophagitis 09/30/2024 Telephone Urogy[address]cology [address] [place] [phone] Kortney Saldana NP 09/26/2024 2:00 PM EDT Office Visit U[address]olog[address] [phone] Brit Gaston MD Hematuria, unspecified type (Primary Dx); Rectocele; Incomplete bladder emptying; Vulvovaginal itching 09/25/2024 11:30 AM EDT Clinical Support [address] [phone] Vitamin B12 deficiency (Primary Dx) from Last 3 Months Immunizations Immunization Administration Dates Next Due Influenza Quadravalent, MDCK , 0.5ml, with preservative (Flucelvax) 6mo and older 02/15/2017 Influenza trivalent, 0.5mL ( Fluad) 65yo and older 11/04/2024 Influenza trivalent, 0.5mL ( Fluzone High-dose) 65yo [...] Proteinuria 04/25/2010 SBO (small bowel obstruction ) ([facility] V24, [facility] V28) 05/26/2010 Stroke ([facility] V24, [facility] V28) 05/26/2010 Vitamin B12 deficiency 03/12/2016 Pelvic fracture ([facility] V24 , [facility] V28) 04/12/201703/02 left pubic ramus and acetabular fx secondary to a fall Adnexal cyst 03/31/2022 Hip fracture ([facility] V24, [facility] V28) 10/06 left hip femoral neck fx, [...] (diabetes mellitus), type 2 with renal complications ([facility] V24, [facility] V28) 02/21/2024 Family History Medical History Relation [...] you may not have stable housing? No 12/17/2024 Food Access & Nutrition Answer Date Rec orded Do you have access to a vari ety of food including fruits and vegetables? Yes 12/17/2024 Access to Healthcare Answer Date Record ed Within the last 3 months, ho w many times did you visit the emergency department for your medical care? 4 12/17/2024 Health Literacy Answer Date Recorded How often [...] medical care, and air conditioning / heating? Not very hard 12/17/2024 Transportation Answer Date Recorded Has the lack of transportati on kept you from meetings, work, or from getting things needed for daily living? No Has the lack of transportati on kept you from medical appointments or from getting medications? No 12/17/2024 Social Isolation Answer Date Recorded How often do you feel lonely or isolated from th ose around you? Never 09/02/2024 Food Risk Answer Date Recorded Within the past 12 months we worried whether our food would run out before we got money to buy more. Never true 12/17/2024 Within the past 12 months th e food we bought just didn't last and we didn't have money to get more. Never true 12/17/2024 Dependent Care Answer Date Recorded Do you need help finding or paying for care for your loved ones. For example, residential child care counselor or elderly care for an older adult? No 09/02/2024 Education Answer Date Recorded Do you think completing more education or training, like finishing a GED, going to college, or learning a trade, would be helpful for you? N/A 12/17/2024 Employment and Income Answer Date Recor ded During the last four weeks, have you been actively looking for work? No 12/17/2024 Living Situation Answer Date Recorded What is your living situation? Unrecognized valu e 12/17/2024 Comments No Sex and Gender Information Value [...] Sign Reading Time Taken Comments Blood Pressure 155/100 11/14/2024 9:00 AM EDT Pulse 110 11/14/2024 9:00 AM EDT Temperature 36.1 C (96.9 F) 11/01/2024 1:18 PM EDT Respiratory Rate 14 11/01/2024 1:18 PM EDT Oxygen Saturation 93% 11/01/2024 1:18 PM EDT Inhaled Oxygen Concentration - - Weight 52.2 kg (115 lb) 11/14/2024 9:00 AM EDT Height 160 cm (5' 3 ) 11/01/2024 1:18 PM EDT Body Mass Index 20.37 11/01/2024 1:18 PM EDT Plan of Treatment Upcoming Encounters Date Type Department Care Team (Late st Contact Info) Description 12/23/2024 10:30 AM EST Office Visit Adult [address] [phone] Sangeetha Sage MD [address] [place] [address] 12/26/2024 2:00 PM EST Procedure visit Urogynecology [address] [phone] Kortney Saldana NP [address] [facility] Randy [address] [place] [address] 01/03/2025 11:15 AM EST Office Visit Adult [address] [phone] Sangeetha Sage MD [address] [place] [address] 01/08/2025 3:15 PM EST Office Visit Urogynecology [address] [phone] Brit Gaston MD [address] [facility] [address] [place] [phone] 09/04/2025 11:15 AM EDT Office Visit Adult Medicine [facility] [address] [place], [place] [phone] Sangeetha Sage MD [address] [place], [place] Health Maintenance Due Date Last Done Comments COVID-19 Vaccine (#1) 02/13/1950 Zoster Vaccines (1 of 2) 02/13/1963 RSV Immunization Adult Patients (1 - 1-dose 75+ series) 02/13/2019 Osteoporosis Screening (Bone Density Screening) 01/22/2022 Diabetes: Annual Foot Exam 01/01/2025 01/02/2024 Diabetes: Blood Sugar Control Test (HGBA1C) 03/05/2025 09/02/2024, 12/28/2023, 07/19/2023, Additional history exists Diabetes: Annual Urine Albumin-Creatinine Ratio (uACR) 09/02/2025 09/02/2024, 07/19/2023 Falls Risk Assessment 09/02/2025 09/02/2024 , 09/02/2024, 04/07/2023 Medicare Annual Wellness Visit 09/02/2025 09/02/2024 Diabetes: Annual Retina Eye Exam 09/03/2025 09/03/2024 Diabetes: Annual GFR (Glomerular Filtration Rate) 11/27/2025 11/27/2024, 11/22/2024, 09/02/2024, Additional history exists Hypertension/CHF/CAD Annual BMP Blood Test 11/27/2025 11/27/2024, 11/22/2024, 09/02/2024, Additional history exists DTaP,Tdap,and Td Vaccines (3 - Td or Tdap) 12/16/2025 12/17/2015, 09/15/2004 Social Influencers of Health Screening 12/17/2025 12/17/2024 Cholesterol Screening (Lipid Panel) 09/02/2029 09/02/2024, 07/19/2023, 07/19/2023 Pneumococcal Vaccine: 50+ Years Completed 07/12/2024, 04/16/2014, 11/09/2009, Additional history exists Depression Screening Completed 09/02/2024, 07/19/19 24 Influenza Vaccine Completed 11/04/2024, , 11/23/2021, Additional history exists HIB Vaccines Aged Out No longer eligi [...] Procedure Name Priority Date/Time Associated Diagnosis Comments THYROXINE TOTAL Routine 11/29/2024 4:57 AM EDT Hypothyroidism, unspecified TRIIODOTHYRONINE TOTAL Routine 4:57 AM EDT Hypothyroidism, unspecified THYROID STIMULATING HORMONE Routine 11/29/2024 4:57 AM EDT Hypothyroidism, unspecified CBC WITH AUTO DIFFERENTIAL Routine 11/27/2024 10:38 AM EDT Nausea with vomiting, unspecified AMYLASE Routine 11/27/2024 10:38 AM EDT Nausea with vomiting, unspecified LIPASE Routine 11/27/2024 10:38 AM EDT Nausea with vomiting, unspecified COMPREHENSIVE METABOLIC PANEL Routine 11/27/2024 10:38 AM EDT Nausea with vomiting, unspecified CBC AND DIFFERENTIAL Routine 11/27/2024 10:38 AM EDT Nausea with vomiting, unspecified THYROID STIMULATING HORMONE Routine 11/22/2024 4:56 AM EDT Essential (primary) hypertension Hypothyroidism, unspecified BASIC METABOLIC PANEL Routine 11/22/2024 4:56 AM EDT Essential (primary) hypertension Hypothyroidism, unspecified COMPLETE BLOOD COUNT Routine 11/22/2024 4:56 AM EDT Essential (primary) hypertension Hypothyroidism, unspecified TRICHOMONAS VAGINALIS ANTIGEN Routine 09/26/2024 3:04 PM EDT Vulvovaginal itching WET PREP, GENITAL Routine 09/26/2024 3:0 4 PM EDT Vulvovaginal itching CULTURE URINE Routine 09/26/2024 3:04 PM EDT Hematuria, unspecified type POC URINE AUTO W/O MICRO Routine 09/26/2024 2:29 PM EDT Rectocele Incomplete bladder emptying EXTERNAL DIABETIC RETINA EYE EXAM 09/03/2024 MICROALBUMIN CREATININE URINE RATIO Routine 09/02/2024 12:06 PM EDT Type 2 diabetes mellitus with stage 3a chronic kidney disease, without long-term current use of insulin ([facility] V24, [facility] V28) Primary hypertension Gastroesophageal reflux disease, unspecified whether esophagitis present Hypothyroidism due to acquired atrophy of thyroid Pure hypercholesterolemia Vitamin B12 deficiency Microalbuminuria Idiopathic osteoporosis HEMOGLOBIN A1C Routine 09/02/2024 12:06 PM EDT Type 2 diabetes mellitus with stage 3a chronic kidney disease, without long-term current use of insulin (CMS/HCC V24, CMS/HCC V28) Primary hypertension Gastroesophageal reflux disease, unspecified whether esophagitis present Hypothyroidism due to acquired atrophy of thyroid Pure hypercholesterolemia Vitamin B12 deficiency Microalbuminuria Idiopathic osteoporosis LIPID PANEL WITH REFLEX TO DIRECT LDL Routine 09/02/2024 12:06 PM EDT Type 2 diabetes mellitus with stage 3a chronic kidney disease, without long-term current use of insulin (CMS/[facility] V24, [facility] V28) Primary hypertension Gastroesophageal reflux disease, unspecified whether esophagitis present Hypothyroidism due to acquired atrophy of thyroid Pure hypercholesterolemia Vitamin B12 deficiency Microalbuminuria Idiopathic osteoporosis DEPRESSION SCREENING Routine 07/19/2023 FALLS RISK ASSESSMENT Routine 04/07/2023 from Last 3 Months or Most Recently Relevant to Health Maintenance Results * (ABNORMAL) Triiodothyronine total (11/29/2024 4:57 AM EDT) T3, Total 33.80(L) 60.00 - 181.00 ng/dL LAB CHEMISTRY METHOD 11/29/2024 9:09 AM EDT [facility] Blood Venous blood specimen / Unknown Venipuncture / Unknown 11/29/2024 4:57 AM EDT 11/29/2024 7:41 AM EDT Gerber Dimas MD LAB BLOOD ORDERABLES Final Resu lt [facility] [address] [place] [address], [place] [phone] * Thyroid stimulating hormone (11/29/2024 4:57 AM EDT) Only the most recent of2 resultswithin the time period is included. TSH 1.22 0.40 - 4.00 mcIU/mL LAB CHEMISTRY METHOD 11/29/2024 9:09 AM EDT [facility] Blood Venous blood specimen / Unknown Venipuncture / Unknown 11/29/2024 4:57 AM EDT 11/29/2024 7:41 AM EDT us Gerber Dimas MD LAB BLOOD ORDERABLES Final Resu lt [facility] [address] [place] [address], [place] [phone] * Thyroxine total (11/29/2024 4:57 AM EDT) [facility] T4, Total 8.8 4.5 - 10.9 mcg/dL LAB CHEMISTRY METHOD 11/29/2024 9:47 AM EDT [facility] Blood Venous blood specimen / Unknown Venipuncture / Unknown 11/29/2024 4:57 AM EDT 11/29/2024 7:41 AM EDT us Gerber Dimas MD LAB BLOOD ORDERABLES Final Resu lt [facility] [address] [place] [address], [place] [phone] * (ABNORMAL) CBC auto differential (11/27/2024 10:38 AM EDT) [facility] WBC 7.7 4.8 - 10.8 K/mcL LAB HEMETOLOGY METHOD 11/27/2024 11:34 AM EDT [facility] RBC 4.80 3.80 - 4.80 M/mcL LAB HEMETOLOGY METHOD 11/27/2024 11:34 AM EDT [facility] Hemoglobin 13.2 11.5 - 16.0 g/dL LAB HEMETOLOGY METHOD 11/27/2024 11:34 AM EDT [facility] Hematocrit 41.7 35.0 - 47.0 % LAB HEMETOLOGY METHOD 11/27/2024 11:34 AM EDT [facility] MCV 86.2 79.0 - 98.0 FL LAB HEMETOLOGY METHOD 11/27/2024 11:34 AM T [facility] MCH 27.3 27.0 - 32.0 pcg LAB HEMETOLOGY METHOD 11/27/2024 11:34 AM [facility] MCHC 31.7(L) 32.0 - 37.0 g/dL LAB HEMETOLOGY METHOD 11/27/2024 11:34 AM [facility] RDW 14.3 11.0 - 15.0 % LAB HEMETOLOGY METHOD 11/27/2024 11:34 AM [facility] Platelets 377 130 - 400 K/mcL LAB HEMETOLOGY METHOD 11/27/2024 11:34 AM [facility] MPV 10.1 7.0 - 11.0 FL LAB HEMETOLOGY METHOD 11/27/2024 11:34 AM [facility] NRBC 0.0 <1.0 % LAB HEMETOLOGY METHOD 11/27/2024 11:34 AM [facility] NRBC Absolute 0.00 <0.10 K/mcL LAB HEMETOLOGY METHOD 11/27/2024 11:34 AM [facility] Neutrophils Relative 70.9 % LAB HEMETOLOGY METHOD 11/27/2024 11:34 AM [facility] Lymphocytes Relative 14.5 % LAB HEMETOLOGY METHOD 11/27/2024 11:34 AM [facility] Monocytes Relative 12.5 % LAB HEMETOLOGY METHOD 11/27/2024 11:34 AM [facility] Eosinophils Relative 1.4 % LAB HEMETOLOGY METHOD 11/27/2024 11:34 AM [facility] Basophils Relative 0.4 % LAB HEMETOLOGY METHOD 11/27/2024 11:34 AM [facility] Immature Granulocytes Relative 0.3 % LAB HEMETOLOGY METHOD 11/27/2024 11:34 AM [facility] Neutrophils Absolute 5.43 1.50 - 7.00 K/mcL LAB HEMETOLOGY METHOD 11/27/2024 11:34 AM [facility] Lymphocytes Absolute 1.11 1.00 - 5.00 K/mcL LAB HEMETOLOGY METHOD 11/27/2024 11:34 AM EDT [facility] Monocytes Absolute 0.96 0.20 - 1.00 K/[facility] LAB HEMETOLOGY METHOD 11/27/2024 11:34 AM EDT [facility] Eosinophils Absolute 0.11 0.00 - 0.50 K/[facility] LAB HEMETOLOGY METHOD 11/27/2024 11:34 AM EDT [facility] Basophils Absolute 0.03 0.00 - 0.20 K/[facility] LAB HEMETOLOGY METHOD 11/27/2024 11:34 AM EDT [facility] Immature Granulocytes Absolute 0.02 0.00 - 0.03 K/[facility] LAB HEMETOLOGY METHOD 11/27/2024 11:34 AM EDT [facility] Blood Venous blood specimen / Unknown Venipuncture / Unknown 11/27/2024 10:38 AM EDT 11/27/2024 11:06 AM EDT us Gerber Dimas MD LAB BLOOD ORDERABLES Final Resu lt [facility] [address] [place] [address], [place] [phone] * Lipase (11/27/2024 10:38 AM EDT) Lipase 52 13 - 75 unit/L LAB CHEMISTRY METHOD 11/27/2024 11:47 AM EDT [facility] Blood Venous blood specimen / Unknown Venipuncture / Unknown 11/27/2024 10:38 AM EDT 11/27/2024 11:06 AM EDT us Gerber Dimas MD LAB BLOOD ORDERABLES Final Resu lt [facility] [address] [place] [address], [place] [phone] * Amylase (11/27/2024 10:38 AM EDT) Pathologist [facility] Amylase 29 25 - 115 unit/L LAB CHEMISTRY METHOD 11/27/2024 11:47 AM [facility] Blood Venous blood specimen / Unknown Venipuncture / Unknown 11/27/2024 10:38 AM EDT 11/27/2024 11:06 AM EDT us Gerber Dimas MD LAB BLOOD ORDERABLES Final Resu lt [facility] [address] [place] [address], [place] [phone] * (ABNORMAL) Comprehensive metabolic panel (11/27/2024 10:38 AM EDT) Pathologist [facility] Sodium 135 133 - 145 mmol/L LAB CHEMISTRY METHOD 11/27/2024 12:21 PM [facility] Potassium 3.6 3.5 - 5.5 mmol/L LAB CHEMISTRY METHOD 11/27/2024 12:21 PM [facility] Chloride 98 96 - 110 mmol/L LAB CHEMISTRY METHOD 11/27/2024 12:21 PM [facility] CO2 25 21 - 32 mmol/L LAB CHEMISTRY METHOD 11/27/2024 12:21 PM [facility] Anion Gap 12(H) 3 - 11 LAB CHEMISTRY METHOD 11/27/2024 12:21 PM [facility] Glucose 94 70 - 100 mg/dL LAB CHEMISTRY METHOD 11/27/2024 12:21 PM [facility] BUN 64(H) 5 - 25 mg/dL LAB CHEMISTRY METHOD 11/27/2024 12:21 PM [facility] Creatinine 0.64 0.50 - 1.10 mg/dL LAB CHEMISTRY METHOD 11/27/2024 12:21 PM [facility] eGFR 89 >=60 mL/min/1. 73m2 LAB CHEMISTRY METHOD 11/27/2024 12:21 PM [facility] Comment:Calculation based on the Chronic Kidney Disease Epidemiology Collaboration (CKD-EPI) equation refit without adjustment for race. BUN/Creatinine Ratio 100.0 LAB CHEMISTRY METHOD 11/27/2024 12:21 PM [facility] Calcium 9.0 8.5 - 10.5 mg/dL LAB CHEMISTRY METHOD 11/27/2024 12:21 PM [facility] AST (SGOT) 12 10 - 42 unit/L LAB CHEMISTRY METHOD 11/27/2024 12:21 PM [facility] ALT (SGPT) 12 10 - 60 unit/L LAB CHEMISTRY METHOD 11/27/2024 12:21 PM [facility] Alkaline Phosphatase 123(H) 42 - 121 unit/L LAB CHEMISTRY METHOD 11/27/2024 12:21 PM [facility] Total Protein 6.3 6.0 - 8.0 g/dL LAB CHEMISTRY METHOD 11/27/2024 12:21 PM [facility] Albumin 3.3 3.2 - 5.0 g/dL LAB CHEMISTRY METHOD 11/27/2024 12:21 PM [facility] Total Bilirubin 0.9 0.0 - 1.4 mg/dL LAB CHEMISTRY METHOD 11/27/2024 12:21 PM [facility] Blood Venous blood specimen / Unknown Venipuncture / Unknown 11/27/2024 10:38 AM EDT 11/27/2024 11:06 AM EDT us Gerber Dimas MD LAB BLOOD ORDERABLES Final Resu lt [facility] [address] [place] [address], * (ABNORMAL) Complete blood count (11/22/2024 4:56 AM EDT) [facility] WBC 5.5 4.8 - 10.8 K/mcL LAB HEMETOLOGY METHOD 11/22/2024 8:29 AM [facility] RBC 4.50 3.80 - 4.80 M/mcL LAB HEMETOLOGY METHOD 11/22/2024 8:29 AM [facility] Hemoglobin 12.3 11.5 - 16.0 g/dL LAB HEMETOLOGY METHOD 11/22/2024 8:29 AM [facility] Hematocrit 38.7 35.0 - 47.0 % LAB HEMETOLOGY METHOD 11/22/2024 8:29 AM [facility] MCV 87.0 79.0 - 98.0 FL LAB HEMETOLOGY METHOD 11/22/2024 8:29 AM [facility] MCH 27.6 27.0 - 32.0 pcg LAB HEMETOLOGY METHOD 11/22/2024 8:29 AM [facility] MCHC 31.8(L) 32.0 - 37.0 g/dL LAB HEMETOLOGY METHOD 11/22/2024 8:29 AM [facility] RDW 14.1 11.0 - 15.0 % LAB HEMETOLOGY METHOD 11/22/2024 8:29 AM [facility] Platelets 240 130 - 400 K/mcL LAB HEMETOLOGY METHOD 11/22/2024 8:29 AM [facility] MPV 10.0 7.0 - 11.0 FL LAB HEMETOLOGY METHOD 11/22/2024 8:29 AM [facility] NRBC 0.0 <1.0 % LAB HEMETOLOGY METHOD 11/22/2024 8:29 AM [facility] NRBC Absolute 0.00 <0.10 K/mcL LAB HEMETOLOGY METHOD 11/22/2024 8:29 AM [facility] Blood Venous blood specimen / Unknown Venipuncture / Unknown 11/22/2024 4:56 AM EDT 11/22/2024 7:27 AM EDT us Gerber Dimas MD LAB BLOOD ORDERABLES Final Resu lt [facility] [address] [place] [address], [place] [phone] * (ABNORMAL) Basic metabolic panel (11/22/2024 4:56 AM EDT) Sodium 142 133 - 145 mmol/L LAB CHEMISTRY METHOD 11/22/2024 8:16 AM [facility] Potassium 3.6 3.5 - 5.5 mmol/L LAB CHEMISTRY METHOD 11/22/2024 8:16 AM [facility] Chloride 109 96 - 110 mmol/L LAB CHEMISTRY METHOD 11/22/2024 8:16 AM [facility] CO2 28 21 - 32 mmol/L LAB CHEMISTRY METHOD 11/22/2024 8:16 AM [facility] Anion Gap 5 3 - 11 LAB CHEMISTRY METHOD 11/22/2024 8:16 AM [facility] Glucose 111(H) 70 - 100 mg/dL LAB CHEMISTRY METHOD 11/22/2024 8:16 AM [facility] BUN 14 5 - 25 mg/dL LAB CHEMISTRY METHOD 11/22/2024 8:16 AM [facility] Creatinine 0.37(L) 0.50 - 1.10 mg/dL LAB CHEMISTRY METHOD 11/22/2024 8:16 AM [facility] eGFR 102 >=60 mL/min/1. 73m2 LAB CHEMISTRY METHOD 11/22/2024 8:16 AM [facility] Comment:Calculation based on the Chronic Kidney Disease Epidemiology Collaboration (CKD-EPI) equation refit without adjustment for race. BUN/Creatinine Ratio 37.8 LAB CHEMISTRY METHOD 11/22/2024 8:16 AM EDT [facility] Calcium 8.6 8.5 - 10.5 mg/dL LAB CHEMISTRY METHOD 11/22/2024 8:16 AM EDT [facility] Blood Venous blood specimen / Unknown Venipuncture / Unknown 11/22/2024 4:56 AM EDT 11/22/2024 7:27 AM EDT us Gerber Dimas MD LAB BLOOD ORDERABLES Final Resu lt Performing Organization Address [facility]/ZIP Co de Phone Number [facility] [address] [place] [address], [place] [phone] * Trichomonas vaginalis antigen (09/26/2024 3:04 PM EDT) Trichomonas vaginalis Negative Negative 09/26/2024 7:28 PM EDT [facility] Vaginal Fluid Vaginal structure / Unknown Non-blood Collection / Unknown 09/26/2024 3:04 PM EDT 09/26/2024 3:04 PM EDT us Brit Gaston MD LAB MI[facility]BIOLOGY - [facility] Final Result [facility] [address] [place] [address], [place] [phone] * Wet prep, genital (09/26/2024 3:04 PM EDT) Clue Cells, Wet Prep Negative Negative 09/26/2024 7:28 PM EDT [facility] Yeast, Wet Prep Negative Negative 09/26/2024 7:28 PM EDT [facility] Trichomonas, Wet Prep Indeterminate Negative 09/26/2024 7:28 PM EDT [facility] Comment:Refer to Trichomonas antigen. Vaginal Fluid Vaginal structure / Unknown Non-blood Collection / Unknown 09/26/2024 3:04 PM EDT 09/26/2024 3:04 PM EDT us Brit Gaston MD LAB MICROBIOLOGY - GENERAL MAKENZIE MARIN Final Result [facility] [address] [place] [address], [place] [phone] * (ABNORMAL) Culture urine (09/26/2024 3:04 PM EDT) Culture, Urine >=100,000 CFU/mL Staphylococcus lugdunensis(A) MARGAUX 09/30/2024 7:53 AM EDT [facility] Comment: Beta-lactamase negative The organism value [...] Staphylococcus lugdunensis Rifampin MARGAUX <=0.5 ug/ml: Susceptible Brit Gaston MD LAB MICROBIOLOGY - GENERAL ORDLink MARIN Final Result [facility] [address] [place] [address], [place] [phone] * (ABNORMAL) POC Urine Auto W/O Micro (09/26/2024 2:29 PM EDT) Glucose UA POC Negative Negative, Trace mg/dL Bilirubin UA POC Negative Negative Ketones UA POC Negative Negative Specific [place] UA POC 1.010 Blood UA POC Moderate(A) [...] Report (09/03/2024) Anatomical Region Laterality Modality Ultrasound Provider [facility] US PROCEDURES Final Result * (ABNORMAL) Lipid panel with reflex to direct LDL (09/02/2024 12:06 PM EDT) Pathologist [facility] Cholesterol 146 0 - 200 mg/dL LAB CHEMISTRY METHOD 09/02/2024 8:08 PM EDT [facility] Triglycerides 173(H) 0 - 150 mg/dL LAB CHEMISTRY METHOD 09/02/2024 8:08 PM EDT [facility] HDL 52 >=40 mg/dL LAB CHEMISTRY METHOD 09/02/2024 8:08 PM EDT [facility] LDL Calculated 59 0 - 100 mg/dL LAB CHEMISTRY METHOD 09/02/2024 8:08 PM EDT [facility] VLDL Cholesterol Glenn 34.6 mg/dL LAB CHEMISTRY METHOD 09/02/2024 8:08 PM EDT [facility] Non HDL Chol. (LDL+VLDL) 94 <145 mg/dL LAB CHEMISTRY METHOD 09/02/2024 8:08 PM EDT [facility] Chol/HDL Ratio 2.8 0.0 - 4.4 LAB CHEMISTRY METHOD 09/02/2024 8:08 PM EDT [facility] Blood Venous blood specimen / Unknown Venipuncture / Unknown 09/02/2024 12:06 PM EDT 09/02/2024 12:06 PM EDT us Sandy HUMPHRIES LAB BLOOD ORDERABLES Final Re sult Performing Organization Address City/[facility]/ZIP Co de Phone Number [facility] [address] [place] [address], [place] [phone] * (ABNORMAL) Microalbumin creatinine urine ratio (09/02/2024 12:06 PM EDT) Creatinine, Urine 55.0 mg/dL LAB CHEMISTRY METHOD 09/02/2024 5:02 PM EDT [facility] Microalb, Ur 78.7(H) 0.0 - 29.0 mg/L LAB CHEMISTRY METHOD 09/02/2024 5:02 PM EDT [facility] Microalb/Crea t Ratio 143(H) <30 mg/g creat LAB CHEMISTRY METHOD 09/02/2024 5:02 PM EDT [facility] Urine Urine specimen from urethra / Unknown Non-blood Collection / Unknown 09/02/2024 12:06 PM EDT 09/02/2024 12:06 PM EDT us Sandy HUMPHRIES LAB URINE ORDERABLES Final Re sult [facility] [address] [place] [address], [place] [phone] * Hemoglobin A1c (09/02/2024 12:06 PM EDT) [facility] Hemoglobin A1C 6.1 <6.5 % LAB CHEMISTRY METHOD 09/02/2024 9:04 PM EDT [facility] Mean Bld Glu Estim. 128 mg/dL LAB CHEMISTRY METHOD 09/02/2024 9:04 PM EDT [facility] Blood Venous blood specimen / Unknown Venipuncture / Unknown 09/02/2024 12:06 PM EDT 09/02/2024 12:06 PM EDT Sandy HUMPHRIES LAB BLOOD ORDERABLES Final Re sult [facility] [address] [place] [address], [place] [phone] * Depression Screening (07/19/2023) Pathologist [facility] Depression Screening abstracted Historical Provider HEALTH MAINTENANCE Final Result * Falls Risk Assessment (04/07/2023) [facility] Falls Risk Assessment abstracted Historical Provider HEALTH MAINTENANCE Final Result from Last 3 Months or Most Recently Relevant to Health Maintenance Insurance MEDICARE [place]ICAID [place] Advance Directives Documents on File Type Date Recorded 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 Care Teams Computer Language Coder Relationship Specialty Start Date End Date Sangeetha Sage MD [address] [place] [phone] PCP - General 08/27/04
--- OUTSIDE RECORDS SUMMARY | 2024-12-22 10:29 | XMS_ITS ---
Author Organization [facility] [address] [place] [address] [place] [phone] Phone Care Team Providers Care Tube Former Operator Name Role Phone Sangeetha Sage MD Primary Care Provider [phone] Transitional Care Management Status:Ongoing (Active) Start date:12/16/2024 Enrollment date:12/16/2024 Enrollment reason:Identified using hospital discharge data Related social drivers of health:Access to Healthcare, TH Health Literacy, Financial Risk, Food Risk Case Team Name Relationship Phone Ruth Sales LPN(Responsible Staff) Pot Pusher Continued Care and Services Coordination
--- OUTSIDE RECORDS SUMMARY | 2024-12-22 10:29 | XMS_ITS | Encounter Summary ---
Author Organization [facility] Address [address] [place] [address] Care Team Providers Care Patent Lawyer Name Role Phone Sangeetha Sage MD Primary Care Provider [phone] Reason for Visit * Reason Onset Date Comments [facility] 12/20/2024 Hospital Follow-up 12/20/2024 Encounter Details Date Type Department Care Team (Late st Contact Info) Description 12/20/2024 Telephone Adult Medicine [facility] [address] [place], [place] [phone] Sangeetha Sage MD [address] [place] [phone] Social History Tobacco Use Types Packs/Day Years [...] do you feel lonely or isolated from ose around you? Never 09/02/2024 Food Risk [...] for your loved ones. For example, children's author or elderly care for an older adult? [...] as of this encounter Progress Notes * Federico Valdez LPN - 12/20/2024 1:35 PM EST Spoke with Tara told her the patient has to keep the appt on 12/23 at 10:[address] Sage in order to have orders signed * Brie Juares RN - 12/20/2024 12:48 PM EST Pt has a hospital follow up on 12/23/24 at 10:[address] Sage. * Federioc Valdez LPN - 12/20/2024 12:39 PM EST Patient needs a hospital follow up in order to keep VNA and Dr. Sage to sign orders Please book a hospital follow up * Keyanna Guerra - 12/20/2024 12:22 PM EST [facility]NA CALL Which [facility] office is calling? [facility] Full name of caller: Tara The caller is A Physical Therapist Is the caller at the patients home?: no Reason for call: verbal orders for pt 2x a week for 4 weeks. Bp was 148/94 didn't take morning meds Does caller need an urgent call back? no Was CONTACT Telephone # obtained above?: yes Fax #: n/a documented in this encounter Plan of Treatment Upcoming Encounters Date Type Department Care Team (Late st Contact Info) Description 12/23/2024 10:30 AM EST Office Visit Adult Medicine [address] [phone] Sangeetha Sage MD [address] [place] [address] 12/26/2024 2:00 PM EST Procedure visit Urogynecology [address] [phone] Kortney Saldana NP [address] [place] [id number] 01/03/2025 11:15 AM EST Office Visit Adult Medicine [address] [phone] Sangeetha Sage MD [address] [place], [place] 01/08/2025 3:15 PM EST Office Visit Urogynecology - [address] [phone] Brit Gaston MD [address] [facility] [address] [place] [address] 09/04/2025 11:15 AM EDT Office Visit Adult [address] [phone] Sangeetha Sage MD [address] [place] [address] documented as of this encounter Visit Diagnoses Not on filedocumented in this encounter Additional Health Concerns Assessment Noted Time PHQ-9 Depression Total Score: 1 09/03/19 25 11:29 AM EDT A fall risk assessment has been complete d for the patient 09/02/2024 11:23 AM EDT documented as of this encounter Care Teams Patent Lawyer Relationship Specialty Start Date End Date Sangeetha Sage MD [address] [place] [address] PCP - General 08/27/04 documented as of this encounter
--- OUTSIDE RECORDS SUMMARY | 2024-12-22 10:29 | XMS_ITS | Data Portability ---
Author Organization [facility], Main Office Address [address] [place] [address] Care Team Providers Care Supervisor Fabrication Name Role Phone RONALDO PERAZA - 2ND [...] and Address Organization Details Recorded Time Anemia 522121331 Active 2023 Alyssa Birch NP [address] [facility], [address], [place], [address], [facility] 4 08:18:03 Adult failure to thrive syndrome 184868130 Active 2023 Alyssa Birch NP [address] [facility] [address], [address], [place], [address], [facility] [employer] 4 08:18:14 Cerebrovascula r accident 826657368 Active 2023 Alyssa Birch NP [address] [facility], [address], [place], [address], [facility] [employer] 4 08:18:26 Gastroesophage al reflux disease 181054237 Active 2023 Alyssa Birch NP [address] [facility] [address], [address], [place], [address], [facility] 4 08:18:36 Hypertensive disorder 05474972 Active 2023 Alyssa Birch NP [address], [place], [address], [facility] [employer] [facility] 4 08:18:53 Hypothyroidism 30319615 Active 2023 Alyssa Birch NP [address] [facility], [address], [place], [address], [facility] 4 08:19:22 Major depressive disorder 639784512 Active 2023 Alyssa Birch NP [address] [facility], [address], [place], [address], [facility] 4 08:22:02 Osteoporosis 95929241 Active 2023 Alyssa Birch NP [address] [facility], [address], [place], [address], [facility] 4 08:22:29 Thrombocytopen ic disorder 108457152 Active 2023 Alyssa Birch NP [address] [facility], [address], [place], [address], [facility] 4 08:22:52 Type 2 diabetes mellitus 88673179 Active 2023 Alyssa Birch NP [address] [facility], [address], [place], [address], [facility] 4 08:23:13 Fracture of neck of femur 9592379 Active 2023 Alyssa Birch NP [address] [facility], [address], [place], [address], [facility] 4 09:10:23 Retention of urine 953973503 Active 2023 Alyssa Birch NP [address] [facility] [address], [address], [place], [address], [facility] 4 09:15:59 Recurrent falls 434312310 Active 2023 JOSE LUIS MESA NP [address] [facility] [address], [place], [address], [facility] 4 14:26:14 Developmental delay 809616320 Active 2023 Adelina Monsalve MD [address] [facility], [facility] [address], [place], [address], [facility] 4 15:24:05 Problem Notes None recorded. Medical Equipment None Reported. Allergies Allergen ID Allergen Name Allergen Category Reaction Reaction Severity Criticality Documentation Date Start Date Code Code System Note Provider Name and Address Organization Details Recorded Time 25148 propoxyph marisa medicatio n other Not available unabletoasse 09/20/2023 8785 RxNorm unkno wn liste d as mild from acosta Birch NP [address] [place] [address], [place] [address], [place], [address], [facility] 4 07:51:30 89668 alteplase medicatio n itching Not available unabletoasse 09/20/2023 8410 RxNorm Alyssa Birch NP [address] [place] [address], [place], [address], [facility] 4 07:51:45 96390 metformin medicatio n diarrhea rash Not available Not available [facility] 09/20/2023 6809 RxNorm Alyssa Birch NP [address] [place] [address], [place], [address], [facility] 4 07:52:17 Medications Name Sig Start Date [...] Details Last Updated DateTime 4 160.02 cm 13045.4 9 g 76 /min 18 /min 97.8 [degF] 96 % 96 % 132/68 mm[Hg] Alyssa Birch NP [address] [facility] [address], [address] [place] [address] [employer] 4 08:04:26 Date Recorded Body height Body weight Heart rate Respiratory rate Body temperature Oxygen saturation Oxygen saturation in Arterial blood by Pulse oximetry Systolic And Diastolic Provider Name and Address Organization Details Last Updated DateTime 4 160.02 cm 48061.4 9 g 70 /min 17 /min 97.8 [degF] 98 % 98 % 130/68 mm[Hg] Alyssa Birch NP 38 [facility] [address], [place], [address] , [facility] [employer] 4 09:08:04 Date Recorded Body height Body weight Heart rate Respiratory rate Body temperature Oxygen saturation Oxygen saturation in Arterial blood by Pulse oximetry Systolic And Diastolic Provider Name and Address Organization Details Last Updated DateTime 4 160.02 cm 59526.2 9 g 67 /min 18 /min 97.2 [degF] 99 % 99 % 131/62 mm[Hg] Alyssa Birch NP [address] [facility] [address], [place], [address], [facility] 4 08:59:16 Date Recorded Body height Body mass index (BMI) Body weight Heart rate Respiratory rate Body temperature Oxygen saturation Oxygen saturation in Arterial blood by Pulse oximetry Systolic And Diastolic Provider Name and Address Organization Details Last Updated DateTime 4 160.02 cm 21.1 kg/m2 69234.4 9 g 70 /min 18 /min 98 [degF] 98 % 98 % 128/72 mm[Hg] Alyssa Birch NP [address] [facility], [address], [place], [address], [facility] 4 18:48:36 Date Recorded Body height Body weight Heart rate Respiratory rate Body temperature Oxygen saturation Oxygen saturation in Arterial blood by Pulse oximetry Systolic And Diastolic Provider Name and Address Organization Details Last Updated DateTime 4 160.02 cm 94208.5 3 g 72 /min 18 /min 98 [degF] 98 % 98 % 113/66 mm[Hg] Alyssa Birch NP [address] [facility], [address], [place], [address], [facility] 4 11:56:56 Social History Question Answer Notes LastModified by Organization Details LastModified Time Tobacco Smoking Status Former Smoker Alyssa Birch NP [address] [facility], [address], [place], [address], [facility] [employer] [facility] 09/20/2023 08:36:16 Do You Have An Advance Directive? Yes Information not available 09/20/2023 What Is Your Code Status? DNR/DNI Also Says DNH, But Pt Has Agreed To Several Hospitalizations Information not available 09/26/2023 Where Do You Live? SingleLevelHouse Lives Alone With 7-5 DIRECTOR EMERGENCY Support Through [employer] Information not available 09/26/2023 Legal Guardian? No Information not available 09/26/2023 Do You Have A Medical Power Of Scale Manager? Yes Information not available 09/26/2023 What Was [...] Td(adult) unspecified formulation 5 completed Fatou Holly [facility] 09/21/2023 12:25:08 Td(adult) unspecified formulation 6 completed Fatou Holly [facility] 09/21/2023 12:25:15 Pneumococcal conjugate PCV 13 5 completed Fatou Holly [facility] 09/21/2023 12:25:29 pneumococcal polysaccharide PPV23 5 completed Fatou Holly [facility] 09/21/2023 12:25:56 pneumococcal polysaccharide PPV23 0 completed Fatou Holly [facility] 09/21/2023 12:26:03 influenza, unspecified formulation 2 completed Fatou Holly [facility] 09/21/2023 12:26:20 influenza, unspecified formulation 3 completed Fatou Holly [facility] 09/21/2023 12:26:27 Past Encounters Encounter ID Performer Location Encounter Start Date Encounter Closed Date Diagnosis/Indication Diagnosis SNOMED-CT Code Diagnosis ICD10 Code Diagnosis IMO Codes Diagnosis Note [id number] Alyssa Birch NP [facility] [address] [place] [address] 09/20/2023 07:44:42 09/26/2023 14:31:10 Fracture of neck of femur 8461957 S72.002E pt underwendt left hip replacemen t [...] dressing c/d/amada driving for 6 weeksfu with [facility] ortho in 2 weeks Major depr essive disorder 235093639 F32.9 with request psych consult for depression likely depression has been ongoing but seems worse with new defecitnot on any meds for thismonito r Adult fail ure to thrive syndrome 925618188 R62.7 Pt with wgt loss prior to coming here and continues to eat poorlymoni tor wgt 2x weeklydiet matilde consult for supplement smonitor closely Cerebrovas cular accident 733502451 I63.9 cva historyasp irin 81 mg po qhsatorvas tatin 20 mg po dailymonit or Asthenia 07853765 R53.1 with hx of cva and now left hip surgeryPT OT eval and treat as abovemonit or Type 2 erlin betes mellitus 88158457 E11.9 hx of in dc summaryno meds listednow with decreased eatingwill get ha1c and monitor Osteoporosis 21305687 M8 1.0 calcium 500 mg po qhsmonitor Thrombocyt openic disorder 661130068 D69.6 hx ofmonitor cbc weekly Hypothyroidism 17648185 E03.9 levothyrox ine 88 mcg daily 0600monito r tsh today and prn Hypertensive disorder 38 072006 I10 atenolol 50 mg po qhslisinop ril 20 mg qhsmonitor bp daily Gastroesop hageal reflux disease 499145807 K21.9 not on any meds for this, hx ofmonitor Anemia 994251935 D64.9 hx of and now with new left hip fxmonitor weekly cbc for bloodloss* amendmen t with hgb 6.7 and hct 23.2 today and pale, feels awful, willing to get tranfusion in ER today. will send Retention of urine 87813 4002 R33.9 she failed a voiding trial in the hospital prior to being transferre d to [facility] and retry voiding trial on losin 0.4mg po dailymonit or for distention or s/s of infection [id number] JOSE LUIS MESA NP [address] [address] 09/23/2023 14:00:41 09/26/2023 15:55:11 Recurrent falls 776912375 R29.6 PT OT eval and treatfall precaution sfrequent safety checks Fracture o f neck of femur 9171904 S72.002E pt underwendt left hip replacemen t [...] in 2 weeks Major depr essive disorder 290569007 F32.9 with request psych consult for depression likely depression has been ongoing but seems worse with new defecitnot on any meds for thismonito r Adult fail ure to thrive syndrome 697528986 R62.7 Pt with wgt loss prior to coming here and continues to eat poorlymoni tor wgt 2x weeklydiet matilde consult for supplement smonitor closely Cerebrovas cular accident 108935824 I63.9 cva historyasp irin 81 mg po qhsatorvas tatin 20 mg po dailyplavi x 75mg dailymonit or Asthenia 11031436 R53.1 with hx of cva and now left hip surgeryPT OT eval and treat as abovemonit or Type 2 erlin betes mellitus 47493651 E11.9 hx of in dc summaryno meds listednow with decreased eatingwill get ha1c and monitor Osteoporosis 73458018 M8 1.0 calcium 500 mg po qhsmonitor Thrombocyt openic disorder 408078483 D69.6 hx ofmonitor cbc weekly Hypothyroidism 60849468 E03.9 levothyrox ine 88 mcg daily 0600monito r tsh today and prn Hypertensive disorder 38 174210 I10 atenolol 50 mg po qhslisinop ril 20 mg qhsmonitor bp daily Gastroesop hageal reflux disease 124556428 K21.9 not on any meds for this, hx ofmonitor Retention of urine 13946 4002 R33.9 she failed a voiding trial in the hospital prior to being transferre d to [facility] and retry voiding trial on losin 0.4mg po dailymonit or for distention or s/s of infection [id number] Adelina Monsalve MD [address] [address] 09/26/2023 13:32:33 09/27/2023 13:15:18 Anemia 770926113 D62 D64.89 Mild at baseline likely due [...] labs. Fracture o f neck of femur 0307304 S72.042D S/P hemiarthro plasty on 09/16.Has been [...] ortho as planned. Major depr essive disorder 416327391 F32.89 In hx, followed by [facility] , on no meds.Mood good today.Leela tor mood.Consu lt psych Adult fail ure to thrive syndrome 330223818 R62.7 Reported hx of wt loss and poor po intake at home.Encou rage po intake here (says she doesn't like the food).Cons ider supplement s.Monitor wts and labs.Bettye bernardo consult. Cerebrovas cular accident 979159386 I63.89 With multiple old CVAs on MRI from 09/2022No recent sxs.Contin ue ASA 81 mg qd and atorvastat in 20 mg qd.Monitor for new sxs. Asthenia 23088624 R53.1 PT/OT as above.Enco urage activity. Type 2 erlin betes mellitus 27073352 E11.9 Last HgA1C I can find was 6.0 in 02/2023.Fin gersticks inpt with only one reading >200.Diet controlled at home.Monit or prn Osteoporosis 67346840 M8 1.0 Continue calcium 500 mg qdWill add vitamin D 1000 IU qd and get level with next labs.Monit or as outpt. Hypothyroidism 04077502 E03.8 Last TSH in system from 09/2022 was nl.Continu e levothyrox ine 88 mcg qdWill order TSH with next labs. Hypertensive disorder 38 902411 I10 In good control on atenolol 50 mg qd and lisinopril 20 mg qd.Monitor BP and labs. Gastroesop hageal reflux disease 921660449 K21.9 With recent heme+ stool.GI felt no urgent need for endoscopy unless hgb drops again.Curr ently stable and with no sxs.Monito r. Retention of urine 39841 4002 R33.8 she failed a voiding trial in the hospital prior to being transferre d to [facility] and retry voiding trial on losin 0.4mg po dailymonit or for distention or s/s of infection Chronic constipation 236 052040 K59.09 Continue bowel meds as ordered.Mo nitor bowel function. Developmental delay 7558 [address] F[address] services [address].Able to make her own decisions. SS to f/u with outpt providers and shoe caser to plan d/c, [id number] Alyssa Birch NP [address] [address] 10/02/2023 09:37:39 10/06/2023 15:54:19 Fracture of neck of femur 3539853 S72.042D S/P hemiarthro plasty on 09/16.Has been [...] for safety.F/U with ortho as planned. Anemia 133601359 D62 D64.89 Mild at baseline likely due [...] reevalMoni tor labs. Major depr essive disorder 395249828 F32.89 In hx, followed by [facility] , on no meds. worker at bedside without concerns todayMood good today.Leela tor mood.Consu lt psych Adult fail ure to thrive syndrome 267490091 R62.7 Reported hx of wt loss and poor po intake at home.Encou rage po intake here (says she doesn't like the food).diet marlena consulted, Consider supplement s.Monitor wts and labs.Bettye bernardo consult. Cerebrovas cular accident 091600955 I63.89 With multiple old CVAs on MRI from 09/2022No recent sxs.Contin ueASA 81 mg qdatorvast atin 20 mg qd.Monitor for new sxs. Asthenia 81666000 R53.1 PT/OT as above.Enco urage activity. Type 2 erlin betes mellitus 09503945 E11.9 Last HgA1C I can find was 6.0 in 02/2023.Fin gersticks inpt with only one reading >200.Diet controlled at home.Monit or prn Osteoporosis 35882636 M8 1.0 Continueca lcium 500 mg qdvitamin D 1000 IU qd and level with next labs.(pend ing)Monito r as outpt. Hypothyroidism 87611091 E03.8 Last TSH in system from 09/2022 was nl.Continu e levothyrox ine 88 mcg qdTSH with next labs(pendi ng). Hypertensive disorder 38 755334 I10 In good control, stablecont atenolol 50 mg qdlisinopr il 20 mg qd.Monitor BP and labs. Gastroesop hageal reflux disease 796032500 K21.9 With recent heme+ stool.GI felt no urgent need for endoscopy unless hgb drops again.Curr ently stable and with no sxs.10/01 due to heme positive stools and need for transfusio n recently will start omeprazole 40 mg po daily x 6 weeksMonit or closely Retention of urine 84008 4002 R33.8 she failed a voiding trial in the hospital prior to being transferre d to rehabfoley placed for retention on 09/30/23, awaiting UA from 09/29 if not already done, not resulted, repeat if not sentassess for underwood removal next week on 10/08 , with 2 failed trialscont tamulosin 0.4mg po dailymonit or for distention or s/s of infection Chronic constipation 236 540352 K59.09 Continue bowel meds as ordered.Mo nitor bowel function. Developmental delay 6612 15459 F[address]Able to make her own decisions. SS to f/u with outpt providers and shoe caser to plan d/c, [id number] Alyssa Birch NP [address] [address] 10/04/2023 15:25:04 10/09/2023 08:53:46 Retention of urine 355009408 R33.8 she failed a voiding trial in the hospital prior to being transferre d to rehabfoley placed for retention on 09/30/23,as sess for [facility] removal next week on 10/08 , with 2 failed trials and need to finish abx for UTIconttam ulosin 0.4mg po dailymonit or for distention or s/s of infection Fracture o f neck of femur 6242203 S72.042D S/P hemiarthro plasty on 09/16. 10/03 [...] for safety.F/U with ortho as planned. Anemia 281691718 D62 D64.89 Mild at baseline likely due [...] ito r labs. Gastroesop hageal reflux disease 687919037 K21.9 With recent heme+ stool.GI felt no urgent need for endoscopy unless hgb drops again.Curr ently stable and with no sxs.due to heme positive stools and need for transfusio n recently will start omeprazole 40 mg po daily x 6 weeks started on ito r closely, labs stable this week Major depr essive disorder 229425902 F32.89 In hx, followed by [facility] , on no meds. worker at bedside without concerns todayMood good today.Leela tor mood.Consu lt psych Adult fail ure to thrive syndrome 412770176 R62.7 Reported hx of wt loss and poor po intake at home.Encou rage po intake here (says she doesn't like the food).diet marlena consulted, Consider supplement s.Monitor wts and labs.Bettye bernardo consult. Cerebrovas cular accident 647746432 I63.89 With multiple old CVAs on MRI from 09/2022No recent sxs.Contin ueASA 81 mg qdatorvast atin 20 mg qd.Monitor for new sxs. Asthenia 04247012 R53.1 PT/OT as above.Enco urage activity. Type 2 erlin betes mellitus 96304036 E11.9 stableLast HgA1C I can find was 6.0 in 02/2023.Fin gersticks inpt with only one reading >200.Diet controlled at home.Monit or prn Osteoporosis 29805242 M8 1.0 Continueca lcium 500 mg qdvitamin D 1000 IU qd and level with next labs.(pend ing)Monito r as outpt. Hypothyroidism 22893967 E03.8 Last TSH in system from 09/2022 was nl.Continu elevothyro xine 88 mcg qdTSH with next labs(pendrafiq hull). Hypertensive disorder 38 228879 I10 In good control, stablecont atenolol 50 mg qdlisinopr il 20 mg qd.Monitor BP and labs. Chronic constipation 236 457668 K59.09 Continue bowel meds as ordered.Mo nitor bowel function. Developmental delay 4032 [address] F[address].Able to make her own decisions. SS to f/u with outpt providers and shoe caser to plan d/c, Urinary tr act infectious disease 31226824 N39.0 She remains with underwood in place after failed voiding trial on the weekend.A urinalysis was sent and culture back with >100,000 ecoli susceptibl e to cipro.Will start cipro 500 mg po bid x 5 days with probiotic. [id number] Alyssa Birch NP [address] [address] 10/11/2023 09:28:00 10/18/2023 11:03:58 Urinary tract infectious disease 23669602 N39.0 resolvingS he remains with under[facility] in place after failed voiding trial on the weekend.A urinalysis was sent and culture back with >100,000 ecoli susceptibl e to cipro.comp leted cipro 500 mg po bid x 5 dayson 10/09 with probiotic. cont to monitor for reoccurenc e Retention of urine 34798 4002 R33.8 she failed a voiding trial in the hospital prior to being transferre d to rehabfoley placed for retention with 2 failed trials10/10 remove underwood today for irritation /paincontt amulosin 0.4mg po dailymonit or for distention or s/s of infection Fracture o f neck of femur 9958112 S72.042D S/P hemiarthro plasty on 09/16. of [...] for safety.F/U with ortho as planned. Anemia 130482120 D62 D64.89 Mild at baseline likely due [...] for next monday Gastroesop hageal reflux disease 026687895 K21.9 With recent heme+ stool.GI felt no urgent need for endoscopy unless hgb drops again.Curr ently stable and with no sxs.due to heme positive stools and need for transfusio n recentlyco ntomeprazo le 40 mg po daily x 6 weeks started on 10/01Monito r closely, labs stable this week Major depr essive disorder 996446369 F32.89 In hx, followed by [facility] , on no meds. worker at bedside without concerns todayMood good today.Leela tor mood.Consu lt psych Adult fail ure to thrive syndrome 980507669 R62.7 Reported hx of wt loss and poor po intake at home.Encou rage po intake here (says she doesn't like the food).dania mendiola consulted, Consider supplement s.Monitor wts and labs.Bettye bernardo consult. Cerebrovas cular accident 350416200 I63.89 With multiple old CVAs on MRI from 09/2022No recent sxs.Contin ueASA 81 mg qdatorvast atin 20 mg qd.Monitor for new sxs. Asthenia 94388101 R53.1 PT/OT as above.Enco urage activity. Type 2 erlin betes mellitus 68368284 E11.9 stableLast HgA1C I can find was 6.0 in 02/2023.Fin gersticks inpt with only one reading >200.Diet controlled at home.Monit or prn Osteoporosis 98332571 M8 1.0 Continueca lcium 500 mg qdvitamin D 1000 IU qd and level with next labs.(pend ing)Monito r as outpt. Hypothyroidism 12242467 E03.8 Last TSH in system from 09/2022 was nl.Continu elevothyro xine 88 mcg qdTSH with next labs(pendi ng for next week) Hypertensive disorder 38 661104 I10 In good control, stablecont atenolol 50 mg qdlisinopr il 20 mg qd.Monitor BP and labs. Developmental delay 4782 49474 F[address].Able to make her own decisions at this time.SS to f/u with outpt providers and shoe caser to plan d/c, [id number] Alyssa Birch NP [address] [address] 10/12/2023 08:03:03 10/18/2023 11:30:23 Urinary tract infectious disease 12364709 N39.0 resolvingS he remains with underwood in place after failed voiding trial on the weekend.A urinalysis was sent and culture back with >100,000 ecoli susceptibl e to cipro.comp leted cipro 500 mg po bid x 5 days on 10/09 with probiotic. cont to monitor for reoccurenc e Retention of urine 90934 4002 R33.8 she failed a voiding trial in the hospital prior to being transferre d to rehabfoley placed for retention with 2 failed trials10/10 remove [place] today for irritation /pain10/11 under[place] reinserted for distension and 1600 cc removed via straight cath, then 1000cccont tamulosin 0.4mg po daily10/11 fu with [facility] urology for urinary retentionm onitor for distention or s/s of infection Fracture o f neck of femur 2910747 S72.042D S/P hemiarthro plasty on 09/16. of [...] for safety.F/U with ortho as planned. Anemia 645301780 D62 D64.89 Mild at baseline likely due [...] for next monday Gastroesop hageal reflux disease 758333686 K21.9 With recent heme+ stool.GI felt no urgent need for endoscopy unless hgb drops again.Curr ently stable and with no sxs.due to heme positive stools and need for transfusio n recentlyco ntomeprazo le 40 mg po daily x 6 weeks started on 10/01Monito r closely, labs stable this week Major depr essive disorder 189126597 F32.89 In hx, followed by [facility] , on no meds. worker at bedside without concerns todayMood good today.Leela tor mood.Consu lt psych Adult fail ure to thrive syndrome 406302833 R62.7 Reported hx of wt loss and poor po intake at home.Encou rage po intake here (says she doesn't like the food).diet ician consulted, Consider supplement s.Monitor wts and labs.Bettye bernardo consult. Cerebrovas cular accident 546316011 I63.89 With multiple old CVAs on MRI from 09/2022No recent sxs.Contin ueASA 81 mg qdatorvast atin 20 mg qd.Monitor for new sxs. Asthenia 30367109 R53.1 PT/OT as above.Enco urage activity. Type 2 erlin betes mellitus 17927386 E11.9 stableLast HgA1C I can find was 6.0 in 02/2023.Fin gersticks inpt with only one reading >200.Diet controlled at home.Monit or prn Osteoporosis 68549737 M8 1.0 Continueca lcium 500 mg qdvitamin D 1000 IU qd and level with next labs.(pend ing)Monito r as outpt. Hypothyroidism 02504410 E03.8 Last TSH in system from 09/2022 was nl.Continu elevothyro xine 88 mcg qdTSH with next labs(pendi ng for next week) Hypertensive disorder 38 680793 I10 In good control, stablecont atenolol 50 mg qdlisinopr il 20 mg qd.Monitor BP and labs. 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 noted as a cyst in h & p in obgyn note from e remains asymptomat ic with cystcont to monitor and fu with obgyn if further concerns [id number] Alyssa Birch NP [address] [address] 10/20/2023 09:07:02 10/24/2023 09:40:46 Mass of ovary [id number] R19.09 has been dx with ovarian mass [...] obgyn if further concerns Retention of urine 31192 4002 R33.8 she failed 3 voiding trials in the hospital [facility] regular carechange underwood to leg bag during day and switch to bag at nighttamul osin 0.4mg po daily10/11 fu with [facility] urology for urinary retention, awaiting appt nsg aware today onitor for distention or s/s of infection Urinary tr act infectious disease 81116666 N39.0 resolvingS he remains with underwood in place after failed voiding trial on the weekend.A urinalysis was sent and culture back with >100,000 ecoli susceptibl e to cipro.comp leted cipro 500 mg po bid x 5 days on 10/09 with probiotic. cont to monitor for reoccurenc e Fracture o f neck of femur 0251335 S72.042D S/P hemiarthro plasty on 09/16. of note:10/03 Ortho [facility] appt rec:encour age pain medication prior to [...] for safety.F/U with ortho as planned. Anemia [id number] D62 D64.89 Mild at baseline likely due [...] stable as above Gastroesop hageal reflux disease 046099006 K21.9 With recent heme+ stool.GI felt no urgent need for endoscopy unless hgb drops again.Curr ently stable and with no sxs.due to heme positive stools and need for transfusio n recentlyco ntomeprazo le 40 mg po daily x 6 weeks started on 10/01Monito r closely, labs stable this week Major depr essive disorder 808452186 F32.89 In hx, followed by [facility] , on no meds. worker at bedside without concerns todayMood good today.Leela tor mood.Consu lt psych Adult fail ure to thrive syndrome 007273056 R62.7 Reported hx of wt loss and poor po intake at home.Encou rage po intake here (says she doesn't like the food).diet marlena consulted, Consider supplement s.Monitor wts and labs.Bettye bernardo consult. 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 Asthenia 00166878 R53.1 PT/OT as above.Enco urage activity. Type 2 erlin betes mellitus 52090166 E11.9 stableLast HgA1C I can find was 6.0 in 02/2023.Fin gersticks inpt with only one reading >200.Diet controlled at home.Monit or prn Osteoporosis 12225646 M8 1.0 Continueca lcium 500 mg qdvitamin D 1000 IU qd and level with next labs.(pend ing)Monito r as outpt. Hypothyroidism 52383706 E03.8 Last TSH in system from 09/2022 was nl.Continu elevothyro xine 88 mcg qdTSH stable at 3.94 on onitor prn Hypertensive disorder 38 897446 I10 In good control, stablecont atenolol 50 mg qdlisinopr il 20 mg qd.Monitor BP and labs. Developmental delay 6085 96614 F70 Has services in [address].Able to make her own decisions at this time.SS to f/u with outpt providers and shoe caser to plan d/c, [id number] Alyssa Birch NP [address] [place] [address] 10/23/2023 08:12:07 10/25/2023 09:54:21 Mass of ovary 589652985 R19.09 has been dx with ovarian mass [...] follows her for this Retention of urine 43507 4002 R33.8 she failed 3 voiding trials in the hospital prior to being transferre d to rehab10/22 refuses to have underwood left in today, will remove with voiding trial and no bladder scan avail, void in hat and record, straight cath if no urine outpt in 12 hours and replace underwood if greater than 350cctamul osin 0.4mg po daily fu with [facility] urology for urinary retention, nsg to schedulemo nitor for distention or s/s of infection Urinary tr act infectious disease 43598299 N39.0 resolvedco mpleted cipro 500 mg po bid x 5 days on 10/09 with probiotic. cont to monitor for reoccurenc e Fracture o f neck of femur 5028659 S72.042D S/P hemiarthro plasty on 09/16. of [...] for safety.F/U with ortho as planned. Anemia 229911969 D62 D64.89 Mild at baseline likely due [...] 10/03)Monit or labs. Gastroesop hageal reflux disease 731853405 K21.9 With recent heme+ stool.GI felt no urgent need for endoscopy unless hgb drops again.Curr ently stable and with no sxs.due to heme positive stools and need for transfusio n recentlyco ntomeprazo le 40 mg po daily x 6 weeks started on 10/01Monito r closely, labs stable this week Major depr essive disorder 158434410 F32.89 In hx, followed by [facility] , on no meds. worker at bedside without concerns todayMood good today.Leela tor mood.Consu lt psych Adult fail ure to thrive syndrome 908384249 R62.7 Reported hx of wt loss and poor po intake at home.Encou rage po intake here (says she doesn't like the food).diet marlena consulted, Consider supplement s.Monitor wts and labs.Bettye bernardo consult. Cerebrovas cular accident 399299893 I63.89 With multiple old CVAs on MRI from 09/2022, mild crooked smile at baselineNo recent sxs.no changes to neuros, at baselineCo ntinueASA 81 mg qdatorvast atin 20 mg qd.Monitor for new sxs. Asthenia 12692514 R53.1 PT/OT as above.Enco urage activity. Type 2 erlin betes mellitus 93649955 E11.9 stableLast HgA1C I can find was 6.0 in 02/2023.Fin gersticks inpt with only one reading >200.Diet controlled at home.Monit or prn Osteoporosis 27538576 M8 1.0 Continueca lcium 500 mg qdvitamin D 1000 IU qd and level with next labs.(pend ing)Monito r as outpt. Hypothyroidism 69232310 E03.8 Last TSH in system from 09/2022 was nl.Continu elevothyro xine 88 mcg qdTSH stable at 3.94 on 3monitor prn Hypertensive disorder 38 950208 I10 In good control, stablecont atenolol 50 mg qdlisinopr il 20 mg qd.Monitor BP and labs. Developmental delay 2482 61663 F70 Has services in [address].Able to make her own decisions at this time.SS to f/u with outpt providers and shoe caser to plan d/c, Hypokalemia 08792069 E87 .6 no info on dc summary of supplement and planmonito r labs weekly 10/22 addendu m labs with k 3.2 will treat with 40 meq kcl tid x 3 doses and add 40 meq po qd on and . Constipation 10148207 K5 9.00 see hipnotable stool burden on CT scan in ER and disimpacte d9/9cont miralax dailyincre ase colace to 100 mg po bidadd senna dailylactu lose qod prnmonitor [id number] Alyssa Birch NP [address] [address] 10/25/2023 14:13:06 10/26/2023 13:21:55 Constipation 41316777 K59.00 resolving with recent er visit with notable stool burden on CT scan and disimpacte d9/9cont miralax dailyincre ase colace to 100 mg po bidadd senna dailylactu lose qod pr/ cont above plan, she is aware stooling daily is goalmonito r for need to adjust Hypokalemia 61995762 E87 .6 no info on dc summary of supplement and planmonito r labs weekly 10/22 k 3.2 will treated with 40 meq kcl tid x 3 doses and started on 40 meq po qd on and . labs weekly10/24 cont above plan Mass of ovary 640035348 R19.09 has been dx with ovarian mass [...] follows her for this Retention of urine 98406 4002 R33.8 she failed 3 voiding trials [...] and no concerns todayto monitor fu with [facility] urology for urinary retention, nsg to schedulemo nitor for distention or s/s of infection Fracture o f neck of femur 6808392 S72.042D S/P hemiarthro plasty on 09/16. of [...] for safety.F/U with ortho as planned. Anemia 868803520 D62 D64.89 Mild at baseline likely due [...] 10/03)Monit or labs. Gastroesop hageal reflux disease 026516209 K21.9 With recent heme+ stool.GI felt no urgent need for endoscopy unless hgb drops again.Curr ently stable and with no sxs.due to heme positive stools and need for transfusio n recentlyco ntomeprazo le 40 mg po daily x 6 weeks started on 10/01Monito r closely, labs stable this week Major depr essive disorder 813967873 F32.89 In hx, followed by [facility] , on no meds. worker at bedside without concerns todayMood good today.Leela tor mood.Consu lt psych Adult fail ure to thrive syndrome 699943310 R62.7 Reported hx of wt loss and poor po intake at home.Encou rage po intake here (says she doesn't like the food).dania mendiola consulted, Consider supplement s.Monitor wts and labs.Bettye bernardo consult. 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 Asthenia 37848900 R53.1 PT/OT as above.Enco urage activity. Type 2 erlin betes mellitus 27481643 E11.9 stableLast HgA1C I can find was 6.0 in 02/2023.Alek frank inpt with only one reading >200.Diet controlled at home.Monit or prn Osteoporosis 53881461 M8 1.0 Continueca lcium 500 mg qdvitamin D 1000 IU qd and level with next labs.(pend ing)Monito r as outpt. Developmental delay 4118 37348 F[address].Able to make her own decisions at this time.SS to f/u with outpt providers and shoe caser to plan d/c, [id number] [facility] [address] 11/01/2023 11:54:51 11/06/2023 14:22:19 Retention of urine 009149423 R33.8 she failed 3 voiding trials in the hospital prior to being transferre d to rehabfoley removed and now voiding without difficulty conttamulo sin 0.4mg po daily(scri pt given)fu with [facility] urology for urinary retention ouptmonito r for distention or s/s of infection Constipation 83019896 K5 9.00 resolving with recent er visit with notable stool burden on CT scan and disimpacte d in ER with increased laxativesc ontmiralax dailycolac e to 100 mg po bidsenna dailylactu lose qod prnmonitor for need to adjust Hypokalemia 10088661 E87 .6 with hypokalemi a repletedco ntpotassiu m 40 meq on and mo nitor with pcp outpt with adjustment s Mass of ovary 528933413 R19.09 has been dx with ovarian mass [...] this Fracture o f neck of femur 2790820 S72.042D S/P hemiarthro plasty on 09/16.10/03 Ortho [...] with ortho as planned micah outpt Anemia 001751442 D62 D64.89 Mild at baseline likely due [...] with pcp outpt Gastroesop hageal reflux disease 924079817 K21.9 With recent heme+ stool.GI felt no urgent need for endoscopy unless hgb drops again.Curr ently stable and with no sxs.due to heme positive stools and need for transfusio n recentlyco ntomeprazo le 40 mg po daily x 6 weeks started on 10/01Monito r closely, labs stable this week and fu with pcp outpt for omeprazole need. 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 with pcp Developmental delay 7045 [address]1545 F[address].Able to make [...] ID Guarantor Name 10/20/2023 1 MEDICARE B-[place]: [employer] Briseida Reich [id number] Briseida Reich 10/20/2023 2 [place] [facility] Briseida Reich [id number] Briseida Reich Notes Date Note Type Note [...] Per 10/26/[address] Mojica at [facility] oncology/obgyn she had a left adnexa [...] prior voiding trials. Alyssa Birch NP [address] [facility] [address], [address], [place], [address], [facility] 10/12/2023 08:57:43 10/20/2023 text/html Briseida is a [...] s/s of infection. She has pain at undewrood site and was seen by Dr Garcia [...] Per 10/26/[address] Mojica at [facility] oncology/obgyn she had a left adnexa [...] another weight soon. Alyssa Birch, DUSTIN [address], [address], [place], [address], [facility] [employer] 10/20/2023 09:41:58 10/23/2023 text/html Pt is a [...] Per 10/26/[address] Mojica at [facility] oncology/obgyn she had a left adnexa cyst which measured 8.1 x 6 x 5.6 cm. No surgery was required at this time. A repeat u/s can be considered if needed. Alyssa Birch NP [address] [place] [address], [address], [place], [address], [facility] 10/23/2023 16:15:20 10/25/2023 text/html Briseida [...] she shouldn't be stooling daily and this SOFTWARE SECURITY CONSULTANT educates her on the need to have stools daily to clean out and then decreasing laxatives going forward if warranted. Alyssa Birch, DUSTIN [address] [facility] [address] [address], [address], [place], [address], [facility] 10/25/2023 19:04:40 11/01/2023 text/html Pt [...] urinary retention, anemia, and CHF presented to [facility] for left hip pain after mechanical fall and underwendt left hemiarthroplasty on 09/17/23 and was transferred to [facility] on 09/19/23 for continued care and rehab. [...] vna to support. Alyssa Birch NP [address] [facility] [address], [address], [place], [address], [facility] - [employer] 11/01/2023 12:48:40 OBGyn Episode No OBEpisode recorded.
--- OUTSIDE RECORDS SUMMARY | 2024-12-22 10:29 | XMS_ITS ---
Author Organization [address] Address [address] [place] [phone] Phone Care Team Providers Care Grinding And Spraying Supervisor Name Role Phone Sangeetha Sage MD Primary Care Provider [phone] Chronic Care Management Status:Identified (Enrolling) Start date:12/17/2024 Enrollment reason:Referred by Care Team Related social drivers of health:Access to Healthcare, [facility] Literacy Case Team Name Relationship Phone Mariangel Pritchard RN(Responsible Staff) Care Eleonora henriquez Continued Care and Services Coordination
--- OUTSIDE RECORDS SUMMARY | 2024-12-22 10:29 | XMS_ITS | Encounter Summary ---
Author Organization [facility] [place] [address] Care Team Providers Care Gallery Assistant Name Role Phone Sangeetha Sage MD Primary Care Provider [phone] Encounter Details Date Type Department Care Team ([facility] st Contact Info) Description 11/22/2024 Lab Requisition [facility] - Main Lab [address] [facility] [place] [address] Gerber Dimas MD [address] [place] [id number] Essential (primary) hypertension; Hypothyroidism, unspecified Social History Tobacco Use Types [...] care for your loved ones. For example, early childhood services coordinator or elderly care for an older adult? [...] 10:30 AM EST Office Visit Adult Medicine [facility] [address] [place], [place] [phone] Sangeetha Sage MD [address] [place], [place] 12/26/2024 2:00 PM EST Procedure visit [facility] [phone] Kortney Saldana NP [address] [place] [address] 01/03/2025 11:15 AM EST Office Visit Adult Medicine [address] [phone] Sangeetha Sage MD [address] [place] [address] 01/08/2025 3:15 PM EST [facility] [phone] Brit Gaston MD [address] [facility] [address] [place] [address] 09/04/2025 11:15 AM EDT Office Visit [address] [phone] Sangeetha Sgae MD [address] [place] [address] documented as of this encounter Procedures Procedure Name Priority Date/Time Associated Diagnosis Comments COMPLETE BLOOD COUNT Routine 11/22/2024 4:56 AM EDT Essential (primary) hypertension Hypothyroidism, unspecified THYROID STIMULATING HORMONE Routine 11/22/2024 4:56 AM EDT Essential (primary) hypertension Hypothyroidism, unspecified BASIC METABOLIC PANEL Routine 11/22/2024 4:56 AM EDT Essential (primary) hypertension Hypothyroidism, unspecified documented in this encounter Results * Thyroid stimulating hormone (11/22/2024 4:56 AM EDT) Pathologist [facility] TSH 0.40 0.40 - 4.00 mcIU/mL LAB CHEMISTRY METHOD 11/22/2024 9:12 AM [facility] Blood Venous blood specimen / Unknown Venipuncture / Unknown 11/22/2024 4:56 AM EDT 11/22/2024 7:27 AM EDT us Gerber Dimas MD LAB BLOOD ORDERABLES Final Resu lt [facility] [address] [place] [address], * (ABNORMAL) Basic metabolic panel (11/22/2024 4:56 AM EDT) Pathologist [facility] Sodium 142 133 - 145 mmol/L LAB CHEMISTRY METHOD 11/22/2024 8:16 AM [facility] Potassium 3.6 3.5 - 5.5 mmol/L LAB CHEMISTRY METHOD 11/22/2024 8:16 AM [facility] Chloride 109 96 - 110 mmol/L LAB CHEMISTRY METHOD 11/22/2024 8:16 AM [facility] CO2 28 21 - 32 mmol/L LAB CHEMISTRY METHOD 11/22/2024 8:16 AM [facility] Anion Gap 5 3 - 11 LAB CHEMISTRY METHOD 11/22/2024 8:16 AM [facility] Glucose 111(H) 70 - 100 mg/dL LAB CHEMISTRY METHOD 11/22/2024 8:16 AM [facility] BUN 14 5 - 25 mg/dL LAB CHEMISTRY METHOD 11/22/2024 8:16 AM [facility] Creatinine 0.37(L) 0.50 - 1.10 mg/dL LAB CHEMISTRY METHOD 11/22/2024 8:16 AM [facility] eGFR 102 >=60 mL/min/1. 73m2 LAB CHEMISTRY METHOD 11/22/2024 8:16 AM EDT [facility] Comment:Calculation based on the Chronic Kidney Disease Epidemiology Collaboration (CKD-EPI) equation refit without adjustment for race. BUN/Creatinine Ratio 37.8 LAB CHEMISTRY METHOD 11/22/2024 8:16 AM EDT [facility] Calcium 8.6 8.5 - 10.5 mg/dL LAB CHEMISTRY METHOD 11/22/2024 8:16 AM EDT [facility] Blood Venous blood specimen / Unknown Venipuncture / Unknown 11/22/2024 4:56 AM EDT 11/22/2024 7:27 AM EDT us Gerber Dimas MD LAB BLOOD ORDERABLES Final Resu lt [facility] [address] [place] [address], * (ABNORMAL) Complete blood count (11/22/2024 4:56 AM EDT) WBC 5.5 4.8 - 10.8 K/mcL LAB HEMETOLOGY METHOD 11/22/2024 8:29 AM [facility] RBC 4.50 3.80 - 4.80 M/mcL LAB HEMETOLOGY METHOD 11/22/2024 8:29 AM T [facility] Hemoglobin 12.3 11.5 - 16.0 g/dL LAB HEMETOLOGY METHOD 11/22/2024 8:29 AM T [facility] Hematocrit 38.7 35.0 - 47.0 % LAB HEMETOLOGY METHOD 11/22/2024 8:29 AM [facility] MCV 87.0 79.0 - 98.0 FL LAB HEMETOLOGY METHOD 11/22/2024 8:29 AM [facility] MCH 27.6 27.0 - 32.0 pcg LAB HEMETOLOGY METHOD 11/22/2024 8:29 AM EDT [facility] MCHC 31.8(L) 32.0 - 37.0 g/dL LAB HEMETOLOGY METHOD 11/22/2024 8:29 AM EDT [facility] RDW 14.1 11.0 - 15.0 % LAB HEMETOLOGY METHOD 11/22/2024 8:29 AM EDT [facility] Platelets 240 130 - 400 K/mcL LAB HEMETOLOGY METHOD 11/22/2024 8:29 AM EDT [facility] MPV 10.0 7.0 - 11.0 FL LAB HEMETOLOGY METHOD 11/22/2024 8:29 AM EDT [facility] NRBC 0.0 <1.0 % LAB HEMETOLOGY METHOD 11/22/2024 8:29 AM EDT [facility] NRBC Absolute 0.00 <0.10 K/mcL LAB HEMETOLOGY METHOD 11/22/2024 8:29 AM EDT [facility] Blood Venous blood specimen / Unknown Venipuncture / Unknown 11/22/2024 4:56 AM EDT 11/22/2024 7:27 AM EDT us Gerber Dimas MD LAB BLOOD ORDERABLES Final Resu lt [facility] [address] [place] [address], documented in this encounter Visit Diagnoses Diagnosis Essential (primary) hypertension Unspecified essential hypertension Hypothyroidism, unspecified documented in this encounter Additional Health Concerns Assessment Noted Time PHQ-9 Depression Total Score: 1 09/03/19 11:29 AM EDT A fall risk assessment has been complete d for the patient 09/02/2024 11:23 AM EDT documented as of this encounter Care Teams Gallery Assistant Relationship Specialty Start Date End Date Sangeetha Sage MD [address] [place] [address] PCP - General 08/27/04 documented as of this encounter
[2024-12-22 10:37] LABS: Appearance Urine Cloudy; Glucose Urine UA Negative (Negative); PH 6.0 (5.0-9.0); Specific Gravity - Urine <= 1.005 (1.005-1.025); UMIC TRIGGER UACC YES
[2024-12-22 10:46] LABS: UACC Culture Trigger YES
[2024-12-22 10:56] LABS: Alanine Aminotransferase < 6 U/L (0-31); Albumin Level 3.7 g/dL (3.5-5.0); Alkaline Phosphatase 113 U/L (39-117); Anion Gap 15 (12-20); Aspartate Amino Transferase 26 U/L (5-31); Blood Urea Nitrogen 12 mg/dL (9-16); Calcium 8.6 mg/dL (8.4-10.2); Carbon Dioxide 21 mmol/L (22-29); Chloride 108 mmol/L (96-108); Creatinine Clr Calc Pharmacy 74.4; Estimated Glomerular Filt Rate > 60; Magnesium 2.1 mg/dL (1.6-2.6); Potassium 3.8 mmol/L (3.3-5.1); Sodium 140 mmol/L (135-145); Total Protein 6.2 g/dL (6.5-8.0)
[2024-12-22 11:03] LABS: Troponin-I High Sensitivity 4.4 ng/L (<3.5-17.0)
--- NOTE | 2024-12-22 11:06 | ED.GENADULT ---
HPI - General Adult General Chief complaint: General Medical Stated complaint: WEAK AND SHAKY PER EMS Time Seen by Provider: 12/22/24 11:06 Source: patient and other Mode of arrival: EMS Limitations: no limitations History of Present Illness ED Provider: HPI narrative: 79 yo female with a pmhx significant for hx CVA, HTN, CAD, hypothyroid, GERD, chronic constipation, DM, chronic anemia, mild aortic regurg, and intellectual disability here with Ahmed her [employer] presents with irritation of the Carver catheter that was placed in November of this year for urinary retention, she has seen her PCP tomorrow and then urologist on December 26, patient states she would like to have her Carver catheter removed. Patient is shaky, however she denied to me new onset of tiredness and she denied abdominal pain no fevers or chills, primarily patient is here and requesting to have a Carver catheter removed. Related Data Home Medications ?Medication ?Instructions ?Recorded ?Confirmed aspirin 81 mg tablet,delayed 81 mg PO BEDTIME 10/13/21 04/23/24 release (Adult Low Dose Aspirin) atenolol 50 mg tablet 50 mg PO BEDTIME 10/13/21 04/23/24 atorvastatin 20 mg tablet 20 mg PO DAILY 10/13/21 04/23/24 omega-3 fatty acids 1,000 mg 1,000 mg PO DAILY 10/13/21 04/23/24 capsule lisinopril 20 mg tablet 20 mg PO BEDTIME 03/23/22 04/23/24 calcium carbonate (Oyster Shell 500 mg PO BEDTIME 08/07/22 04/23/24 Calcium) docusate sodium 100 mg capsule 100 mg PO DAILY 12/21/22 04/23/24 clotrimazole 1 % topical cream 1 appl topical BID PRN Rash Under 09/15/23 04/23/24 Breast cholecalciferol (vitamin D3) 25 25 mcg PO DAILY 10/04/23 04/23/24 mcg (1,000 unit) capsule alendronate 70 mg tablet 70 mg PO TH 04/23/24 04/23/24 levothyroxine 100 mcg tablet 100 mcg PO DAILY@0600 04/23/24 04/23/24 loratadine 10 mg tablet 10 mg PO DAILY 04/23/24 04/23/24 Previous Rx's ?Medication ?Instructions ?Recorded clopidogrel 75 mg tablet (Plavix) 75 mg PO DAILY #30 tabs 08/09/22 tamsulosin 0.4 mg capsule 0.4 mg PO DAILY #30 caps 08/09/22 cefuroxime axetil 250 mg tablet 250 mg PO BID #14 tabs 05/19/24 cefuroxime axetil 250 mg tablet 250 mg PO BID 7 days #14 tabs 05/19/24 loperamide 2 mg tablet 2 mg PO Q4H PRN loose stool #14 05/19/24 tabs loperamide 2 mg tablet 2 mg PO Q6H PRN loose stool #14 05/19/24 tabs clotrimazole 1 % topical cream 1 appl topical BID #45 grams 06/28/24 nitrofurantoin 100 mg PO BID 5 days #10 caps 12/22/24 monohydrate/macrocrystals 100 mg capsule (Macrobid) phenazopyridine 100 mg tablet 100 mg PO TID PRN pain 3 days #9 12/22/24 (Pyridium) tabs Allergies Allergy/AdvReac Type Severity Reaction Status Date / Time propoxyphene (From Darvon) Allergy Mild UNKNOWN Verified 12/22/24 10:16 alteplase AdvReac Intermediate Itching Verified 12/22/24 10:16 metformin (Metformin) AdvReac Mild DIARRHEA, Verified 12/22/24 10:16 RASH Review of Systems Constitutional: Constitutional: Reports as per [facility] Past Medical History Medical History Post-traumatic osteoarthritis of right knee Hypertension Type 2 diabetes mellitus Anemia Thrombocytopenia Cerebrovascular accident Adnexal mass Occult GI bleeding Adult failure to thrive COVID-19 virus infection Major depressive disorder Intellectual disability Ischemic stroke Hernia Hypothyroidism Osteoporosis GERD (gastroesophageal reflux disease) High blood pressure Surgical History History of rectal surgery Social History Social History Household Members: None Housing: House Housing Other:: hotel Do you presently have visiting nurse or other home services: No Alcohol intake: never Comment: COUNTS CORRECT Patient Tobacco Use Status: Former Tobacco user Tobacco use type: Cigarette e-Cigarette/Vaping Use: Former Use Second Hand Smoke Exposure: No Advance Directives: Yes Advance Directives on File: Yes Advance Directives Date on File: 09/20/23 service: No Current occupational status: retired and disabled Physical Exam ED Exam Exam: Alert and oriented x4 Anxious affect, slightly shaky S1-S2 Lungs are clear, no stridor or wheezing Abdomen nontender nondistended : Carver catheter is in place, there was no bleeding or obvious irritation around the meatus, urine is non cloudy nonbloody, Carver catheter bag is in place and urine is draining well Vital Signs: Vital Signs - 24 hr 12/22/24 10:12 Temperature 97.8 F Pulse Rate 92 Respiratory Rate 18 Blood Pressure 139/80 Pulse Oximetry 95 Oxygen Delivery Method Room Air BMI result Body Mass Index 19.9 Medical Decision Making Medical Decision Making MDM Narrative: 11:34 AM 12/22/2024 (Dr. Luis Fernando Herndon): There was no indication that patient has ascending infection, she is nonfebrile, no leukocytosis, no ROLANDO, Carver catheter is draining well, patient is seeing PCP tomorrow and urologist in another few days on the December 26, we would like to Carver catheter to be removed now in the emergency department, explained to the patient that this is something I am not going to do, she has had a retention up to a Liter during a prior visit and that is why she has a Carver catheter in place and she has good follow up, on my physical examination there is no obvious infectious skin etiology around the Carver catheter, and a catheter is draining well, urine is likely colonized and I checked her prior sensitivities we will start her on Macrobid and Pyridium. Differential Diagnosis Differential Diagnoses: The differential diagnosis associated with the presentation includes (UTI, dehydration, ROLANDO, clogged Carver catheter) Admission/Observation Consideration of admission/observation: Escalation of care including admission/observation considered Lab Data MDM Lab Attestation statement: I reviewed the patient's lab results. 12/22/24 10:24 12/22/24 10:24 Labs: Lab Results 12/22/24 12/22/24 Range/Units 10:24 10:28 WBC 5.7 (4.8-10.8) X10*3/uL RBC 4.84 (4.20-5.50) X10*6/uL Hgb 13.2 (12.0-16.0) g/dl Hct 41.4 (37.0-47.0) % MCV 85.5 (80.0-98.0) fL MCH 27.3 (27.0-33.0) pg MCHC 31.9 (31.0-35.0) g/dl RDW 15.7 (11.0-16.0) % Plt Count 247 (160-400) X10*3/uL MPV 9.8 (9.4-12.3) fL Immature Gran % (Auto) 0.2 (0.0-0.4) % Neut % (Auto) 68.3 (45-73) % Lymph % (Auto) 20.5 (20-40) % [place] % (Auto) 7.0 (2-11) % Eos % (Auto) 3.3 (0-4) % Baso % (Auto) 0.7 (0-2) % Lymph # (Auto) 1.2 (1.2-4.9) X10*3/uL [place] # (Auto) 0.4 (0.1-1.2) X10*3/uL Eos # (Auto) 0.2 (0.0-0.4) X10*3/uL Baso # (Auto) 0.0 (0.0-0.2) X10*3/uL Abs Immat Gran (auto) 0.01 (0.00-0.03) X10*3/uL Absolute Neuts (auto) 3.9 (2.0-8.3) x10*3/uL Absolute Nucleated RBC 0.000 (0.0-0.012) X10*3/uL Nucleated RBC % (auto) 0.0 (0.0-0.2) /100WBC Sodium 140 (135-145) mmol/L Potassium 3.8 (3.3-5.1) mmol/L Chloride 108 (96-108) mmol/L Carbon Dioxide 21 L (22-29) mmol/L Anion Gap 15 (12-20) BUN 12 (9-16) mg/dL Creatinine 0.47 L (0.5-1.4) mg/dL Estim Creat Clear Calc 74.4 Estimated GFR > 60 Random Glucose 86 (60-115) mg/dL Calcium 8.6 (8.4-10.2) mg/dL Magnesium 2.1 (1.6-2.6) mg/dL Total Bilirubin 0.8 (0.0-1.0) mg/dL AST 26 (5-31) U/L ALT < 6 (0-31) U/L Alkaline Phosphatase 113 (39-117) U/L Troponin I High Sens 4.4 (<3.5-17.0) ng/L Total Protein 6.2 L (6.5-8.0) g/dL Albumin 3.7 (3.5-5.0) g/dL Urine Color Yellow Urine Appearance Cloudy Urine pH 6.0 (5.0-9.0) Ur Specific Organ <= 1.005 (1.005-1.025) Urine Protein Negative (Neg-Trace) mg/dL Urine Glucose (UA) Negative (Negative) mg/dL Urine Ketones Negative (Negative) mg/dL Urine Blood Small (1+) H (Negative) Urine Nitrite Negative (Negative) Ur Leukocyte Esterase Large (3+) H (Negative) Urine RBC 0-2 (0-2) /HPF Urine WBC >50 H (0-5) /HPF Urine WBC Clumps Present Ur Squamous Epith Cells 0-2 (0-2) /HPF Urine Bacteria 2+ (None Seen) Hyaline Casts 0-2 (0-2) /LPF Influenza Type A (PCR) NEGATIVE (Negative) Influenza Type B (PCR) NEGATIVE (Negative) RSV RNA Qual (PCR) NEGATIVE (Negative) SARS-CoV-2 RNA (RT-PCR) NEGATIVE (Negative) Independent Interpretation I performed an independent interpretation of an: EKG (86 beats per minute otherwise normal ECG without dysrhythmia, AV eduard blocks or ST-T changes to suspect underlying ACS, my independent interpretation) Independent Historian Clinical information obtained from an independent historian. History obtained from or confirmed by: Other (Ahmed her [employer]) Discharge Plan Discharge Clinical Impression: Carver catheter in place, UTI (urinary tract infection) due to urinary indwelling catheter Patient Disposition: Home, Self-Care Additional Instructions: You were going to see your PCP tomorrow and the urologist in the next few days, as discussed with the you I do not typically remove Carver catheter is in the emergency department when they were placed for urinary retention, your Carver catheter insertion site looks well, it is draining well, I am going to start her on Pyridium that you will take every 8 hours as needed for pain in the area, it will turn your urine orange and I am starting you on antibiotic as well, follow up with the PCP and neurologist, your physical examination your blood work vital signs all reassuring you are not dehydrated there was no obvious evidence for systemic infection. Prescriptions: New phenazopyridine [Pyridium] 100 mg tablet 100 mg PO TID PRN (Reason: pain) 3 Days Qty: 9 0RF nitrofurantoin monohyd/m-cryst [Macrobid] 100 mg capsule 100 mg PO BID 5 Days Qty: 10 0RF Rx Instructions: must administer with a meal/food No Action lisinopril 20 mg tablet 20 mg PO BEDTIME calcium carbonate [Oyster Shell Calcium] 500 mg calcium (1,250 mg) Tablet 500 mg PO BEDTIME tamsulosin 0.4 mg Capsule 0.4 mg PO DAILY Qty: 30 0RF clopidogrel [Plavix] 75 mg tablet 75 mg PO DAILY Qty: 30 0RF alendronate 70 mg tablet 70 mg PO TH levothyroxine 100 mcg tablet 100 mcg PO DAILY@0600 loratadine 10 mg Tablet 10 mg PO DAILY clotrimazole 1 % cream 1 appl topical BID Qty: 45 0RF clotrimazole 1 % cream 1 appl topical BID PRN (Reason: Rash Under Breast) loperamide 2 mg tablet 2 mg PO Q4H PRN (Reason: loose stool) Qty: 14 0RF Rx Instructions: administer after each loose stool until symptoms controlled; do not exceed 8 mg per 24 hrs cefuroxime axetil 250 mg tablet 250 mg PO BID 7 Days Qty: 14 0RF cefuroxime axetil 250 mg tablet 250 mg PO BID Qty: 14 0RF loperamide 2 mg tablet 2 mg PO Q6H PRN (Reason: loose stool) Qty: 14 0RF atorvastatin 20 mg tablet 20 mg PO DAILY omega-3 fatty acids 1,000 mg capsule 1,000 mg PO DAILY atenolol 50 mg tablet 50 mg PO BEDTIME aspirin [Adult Low Dose Aspirin] 81 mg tablet,delayed release (DR/EC) 81 mg PO BEDTIME docusate sodium 100 mg capsule 100 mg PO DAILY cholecalciferol (vitamin D3) 25 mcg (1,000 unit) capsule 25 mcg PO DAILY Referrals: Sangeetha Sage MD [Primary Care Provider, Internal Medicine] - 1 day Clinical Impression: Carver catheter in place; UTI (urinary tract infection) due to urinary indwelling catheter Print Language: Malay
[2024-12-22 11:15] LABS: Resp Syncy Virus RNA Qual PCR NEGATIVE (Negative); SARS COV2 PCR INHOUSE NEGATIVE (Negative)
[2024-12-22 13:00] VITALS: BP 126/76; PULSE 91; RESP 21; TEMP 36.6; O2SAT 96
[2024-12-22 13:09] VITALS: BP 126/76; PULSE 91; RESP 21; TEMP 36.6; O2SAT 96
== END 2024-12-22 13:09 | disposition home or self-care (01) ==
PROVIDERS: Physician Assistant Medical; Emergency Provider Emergency Medicine; PCP Internal Medicine
DX: N39.0 Urinary tract infection, site not specified (principal); I49.8 Other specified cardiac arrhythmias; I45.10 Unspecified right bundle-branch block; T83.518A Infection and inflammatory reaction due to other urinary catheter, initial encounter; Y73.8 Miscellaneous gastroenterology and urology devices associated with adverse incidents, not elsewhere classified; Y92.9 Unspecified place or not applicable; Z03.818 Encounter for observation for suspected exposure to other biological agents ruled out; Z79.899 Other long term (current) drug therapy
CPT/HCPCS: 80053; 81001; 83735; 84484; 85025; 87086; 87088; 87186; 87637; 93005; 99283; 99284

== ENCOUNTER → 2024-12-22 09:48 | Outpatient (BNV) | payer MEDICARE, MEDICAID, SELFPAY | PROVIDERS: Emergency Provider Emergency Medicine; PCP Internal Medicine; Visit Provider Internal Medicine Cardiovascular Disease | DX: I49.9 Cardiac arrhythmia, unspecified (principal); I45.10 Unspecified right bundle-branch block | CPT/HCPCS: 93010 ==